=== PATIENT | female | born 1995 | race Caucasian/White ===

== ENCOUNTER 2023-08-31 11:20 | Outpatient (REF) | payer BC, SELFPAY | END 2023-08-31 11:21 | disposition home or self-care (01) | LOC: LAB 11:20 | PROVIDERS: PCP Internal Medicine; Visit Provider Obstetrics & Gynecology | DX: N90.7 Vulvar cyst (principal) | CPT/HCPCS: 88305 ==

== ENCOUNTER 2023-09-02 11:32 | Day surgery (SDC) | payer BC, SELFPAY ==
[2023-09-02 11:50] VITALS: BP 151/85; PULSE 85; TEMP 36.2; O2SAT 97; BMI 38.7
[2023-09-02 12:10] LABS: HCG Quantitative <1 mIU/mL
[2023-09-02] MEDS: LACTATED RINGER'S SOLUTION 1,000 ML 50 ML IV (12:12)
[2023-09-02 13:13] LABS: Basophils Percent Auto 0.2 % (0.2-2.0); Eosinophils Absolute Auto 0.1 10^3/uL (0.0-0.7); Hematocrit 43.2 % (36.0-48.0); Hemoglobin 14.2 g/dL (12.0-16.0); Immature Granulocytes Abs Auto 0.05 10^3/uL (0.00-0.03); Immature Granulocytes Pct Auto 0.5 % (0.0-0.5); Lymphocytes Absolute Auto 2.3 10^3/uL (1.2-3.8); Lymphocytes Percent Auto 24.1 % (20.5-60.0); Mean Corpuscular HGB Conc 32.9 g/dL (29.9-35.2); Mean Corpuscular Hemoglobin 30.7 pg (26.7-34.0); Mean Corpuscular Volume 93.3 fL (81.0-99.0); Mean Platelet Volume 10.2 fL (9.5-13.5); Monocytes Absolute Auto 0.4 10^3/uL (0.3-0.8); Monocytes Percent Auto 4.5 % (1.7-12.0); Neutrophils Absolute Auto 6.5 10^3/uL (1.4-6.5); Neutrophils Percent Auto 69.7 % (43.0-75.0); Platelet Count 334 10^3/uL (150-450); Red Blood Count 4.63 10^6/uL (4.20-5.40); Red Cell Distribution Width 12.1 % (11.0-15.0); White Blood Count 9.4 10^3/uL (4.0-11.0)
[2023-09-02] MEDS: BACITRACIN OINTMENT 28.4 GM TUBE 1 APPLIC TOPICAL (13:16)
[2023-09-02 13:22] VITALS: BP 105/72; PULSE 84; O2SAT 96
[2023-09-02 13:40] VITALS: BP 143/90; PULSE 64; O2SAT 99
[2023-09-02] MEDS: DIPHENHYDRAMINE HCL 50 MG/ML (1ML) VIAL 12.5 MG IV (13:48)
[2023-09-02 14:03] VITALS: BP 141/82; PULSE 65; O2SAT 100
[2023-09-02] MEDS: HYDROCODONE/ACET 5-325 MG TABLET 1 TAB PO (14:03)
--- NOTE | 2023-09-02 14:12 | PC.NURSE ---
PERIPAD NOTED TO HAVE SCANT AMOUNT BLOODY DRAINAGE; C/O OVERALL ITCHING, ESPECIALLY EYES; NO ORDERS RECEIVED AT THIS TIME; COOL CLOTH TO EYES
--- NOTE | 2023-09-02 14:15 | PC.NURSE ---
No increase of drainage on peripad from initial assessment; continues to c/o itching; no hives or rash noted; order received from anesthesia
--- NOTE | 2023-09-02 14:18 | PC.NURSE ---
Medicated with Benadryl IV as ordered
--- NOTE | 2023-09-02 14:22 | PC.NURSE ---
Medicated with oral medication as ordered for pain; no c/o itching; up to bathroom and voids clear yellow without difficulty; peripad changed for small amount bloody drainage.
[2023-09-02 14:33] VITALS: BP 112/70; PULSE 59; O2SAT 98
--- NOTE | 2023-09-18 14:14 | PM.ONB ---
Brief Operative Note Date of procedure: 09/18/23 Pre-op diagnosis general: vaginal hematoma s/p removal of vulvar fibroid in the office Post-op diagnosis: same as pre-op Procedure: NAME OF PROCEDURE: [evacuation of vulvar hematoma s/p removal of vulvar fibroid in the office] PROCEDURE: The patient was taken back to the Operating Room where she was prepped and draped in normal sterile fashion after being placed under general anesthesia without difficulty. She was also placed in the dorsal lithotomy position. The vulvar hematoma was identified on the pts left side, suture from approximation of vulvar tissue in office was removed, the wound was approximated 4cm in size. the hematoma was cleared and hemostasis of the bed of the prior vulvar fibroid was coagulated using a bovie, copious irrigation was performed, the vulva was approximated using 4-0 vicryl in an interrupted fashion. all instruments were removed, lap, sponge and needle counts correct times 2, Anesthesia: MAC Surgeon: Jacobo Olmstead Estimated blood loss (mL): 10 Pathology: none sent Condition: stable Disposition: PACU Urinary Catheter Management Urinary Catheter Management Urethral: Cath placed during this visit: no
== END 2023-09-02 14:48 | disposition home or self-care (01) ==
PROVIDERS: PCP Internal Medicine; Visit Provider Obstetrics & Gynecology
PROC: (CPT 400; principal; 2023-09-02 12:00)
DX: N99.840 Postprocedural hematoma of a genitourinary system organ or structure following a genitourinary system procedure (principal)
CPT/HCPCS: 56405; 36415; 84702; 85025; J1094; J2704

== ENCOUNTER 2024-04-18 14:18 | Outpatient (OUT) | payer BC, SELFPAY ==
[2024-04-18 14:36] LABS: Bilirubin Urine NEGATIVE (NEGATIVE); Blood Urine MODERATE (NEGATIVE); Clarity Urine CLEAR (CLEAR); Color Urine LT. YELLOW (YELLOW); Glucose Urine UA NEGATIVE (NEGATIVE); Ketones Urine NEGATIVE (NEGATIVE); Leukocyte Esterase Urine NEGATIVE (NEGATIVE); Nitrite Urine NEGATIVE (NEGATIVE); Protein Urine NEGATIVE (NEG/TRACE); Urobilinogen Urine 0.2 EU/dL (0.2-1.0); pH Urine 6.5 (5.0-9.0)
[2024-04-18 14:37] LABS: Basophils Percent Auto 0.5 % (0.2-2.0); Eosinophils Absolute Auto 0.3 10^3/uL (0.0-0.7); Eosinophils Percent Auto 4.5 % (0.9-7.0); Hematocrit 44.2 % (36.0-48.0); Hemoglobin 14.8 g/dL (12.0-16.0); Immature Granulocytes Abs Auto 0.02 10^3/uL (0.00-0.03); Immature Granulocytes Pct Auto 0.3 % (0.0-0.5); Lymphocytes Absolute Auto 2.6 10^3/uL (1.2-3.8); Mean Corpuscular HGB Conc 33.5 g/dL (29.9-35.2); Mean Corpuscular Hemoglobin 30.3 pg (26.7-34.0); Mean Corpuscular Volume 90.6 fL (81.0-99.0); Mean Platelet Volume 9.2 fL (9.5-13.5); Monocytes Absolute Auto 0.4 10^3/uL (0.3-0.8); Monocytes Percent Auto 5.7 % (1.7-12.0); Platelet Count 415 10^3/uL (150-450); Red Blood Count 4.88 10^6/uL (4.20-5.40); Red Cell Distribution Width 11.7 % (11.0-15.0); White Blood Count 7.3 10^3/uL (4.0-11.0)
[2024-04-18 15:11] LABS: Bacteria Urine TRACE #/HPF (NONE SEEN); Cast Seen? NONE SEEN #/LPF (NONE SEEN); Crystals Seen? None Seen #/HPF (None Seen); Mucus Urine NONE SEEN (NONE SEEN); RBC Urine NONE SEEN #/HPF (0-2); Squamous Epithelial Cell Urine FEW #/LPF (NONE/RARE); WBC Urine NONE SEEN #/HPF (NONE SEEN)
== END 2024-04-18 14:19 | disposition home or self-care (01) ==
LOC: LAB 14:19
PROVIDERS: PCP Internal Medicine; Visit Provider Internal Medicine
DX: R31.0 Gross hematuria (principal); R11.2 Nausea with vomiting, unspecified
CPT/HCPCS: 36415; 81001; 85025; 87086

== ENCOUNTER 2024-07-26 15:52 | Outpatient (OUT) | payer BC, SELFPAY ==
--- NOTE | 2024-07-26 15:57 | XR_ITS ---
The [address] [address] Patient Name: CARMEN CARRIZALES MRN: [id number] date: 1995 Sex: F Assigned Patient Location: RAD Current Patient Location: [facility] Accession/Order Number: [id number] Exam Date: 07/26/2024 16:50 Report Date: 07/26/2024 16:51 At the request of: JEREMY RUIZ DO Procedure: XR abdomen 1V KUB: CLINICAL INFORMATION: IUD placement. COMPARISON: None FINDINGS: IUD is in place. Phleboliths are seen within the pelvis. No bowel obstruction or free air. XR/XR abdomen 1V IMPRESSION: No acute process. Impression dictated by: Josh Rodriguez Jr., ElenaOMya07/26/2024 4:51 PM Dictation Location: [place] [address] Electronically authenticated by: [id number] Y Date: 07/26/2024 16:51
== END 2024-07-26 15:53 | disposition home or self-care (01) ==
LOC: RAD 15:53
PROVIDERS: PCP Internal Medicine; Visit Provider Obstetrics & Gynecology
DX: R10.2 Pelvic and perineal pain (principal); Z97.5 Presence of (intrauterine) contraceptive device
CPT/HCPCS: 74018

== ENCOUNTER 2024-08-08 11:01 | Outpatient (OUT) | payer BC, SELFPAY ==
--- OUTSIDE RECORDS SUMMARY | 2024-08-08 11:08 | XMS_ITS | CCD ---
Author Organization [facility] Care Team Providers Care Glaze Grinder Name Role Phone PHYSICIAN, DEFAULT Unavailable Unavailable PHYSICIAN, DEFAULT Unavailable Unavailable Krishna Hernandez Unavailable DAVID, DR STRONG Primary Care Unavailable MARIBELL ., MANUELITO Admitting Unavailable PEPE ., AALIYAH STAUFFER Consulting Unavailkemi REYNA ., MANUELITO Attending Unavailable ROGELIO FUCHS Consulting Unavailable MARIBELL ., MANUELITO Consulting Unavailable SONIDO ., DR BISHOP Attending Unavailkemi e SONIDO ., DR BISHOP Consulting Unavailkemi e SONIDO ., DR BISHOP Admitting Unavailkemi HERNANDEZ, DR STRONG Primary Care Unavailable MARKUS, DR SUSAN Hudson Admitting Unavailable MARKUS, DR SUSAN Hudson Attending Unavailable MARKUS, DR SUSAN Hudson Consulting Unavailable Susan Aparicio Unavailable MD Susan Aparicio Primary Care Provider Jeremy Olmstead Attending Provider Jeremy Olmstead Admitting Unavailable Jeremy Olmstead Attending Unavailable Susan Aparicio Primary Care Unavailable KRISHNA HERNANDEZ Primary Care Unavailable KRISHNA HERNANDEZ Primary Care Unavailable ROLO ESTES Admitting Unavailable PRATEEK PONCE Attending Unavailable KRISHNA HERNANDEZ Primary Care Unavailable ROSA KNOWLES Attending Unavailable JEREMY OLMSTEAD Attending Unavailable JEREMY OLMSTEAD Referring Unavailable JEREMY OLMSTEAD Attending Unavailable JEREMY OLMSTEAD Attending Unavailable JEREMY OLMSTEAD Attending Unavailable JEREMY OLMSTEAD Attending Unavailable Allergies Allergy Classification Reported Allergen(s) Allergy Type Date of Onset Reaction(s) Facility (1 source) Doxycycline; Translations: [DOXYCYCLINE] Drug Allergy 04-26-2024 [facility] Medications Current Medications Medication Drug Class(es) Dates Sig (Normalized) Sig (Original) [id number] 200 actuat albuterol 0.09 mg/actuat metered dose inhaler (6 sources) beta2-Adrenergic Agonist take 1 puff(s) by inhalation every four hours as needed Albuterol Sulfate HFA 108 (90 Base) MCG/ACT 1 puff as needed Inhalation every 4 hrs Active take 1 puff(s) by in halation every four hours as needed Albuterol Sulfate HFA 108 (90 Base) MCG/ACT 1 puff as needed Inhalation every 4 hrs Active amoxicillin 875 mg / clavulanate 125 mg oral tablet (4 sources) Penicillin-class Antibacterial Start: 08-19-2022 take 1 tablet by mouth every twelve hours Amoxicillin-Pot Clavulanate 875-125 MG 1 tablet Orally every 12 hrs for 7 days Aug, Active azithromycin 250 mg oral tablet (7 sources) Macrolide Antimicrobial Start: 07-28-2022 Azithromycin 250 MG as directed Orally daily for 5 days Jan, Active escitalopram 10 mg oral tablet (6 sources) Serotonin Reuptake Inhibitor Start: 07-16-2022 take 1 tablet by mouth every twenty-four hours Escitalopram Oxalate 10 MG 1 tablet Orally Once a day for 30 days Jul, Active Levonorgestrel (6 sources) Progestin, Progestin-containing Intrauterine Device Mirena Active nitrofurantoin, macrocrystals 25 mg / nitrofurantoin, monohydrate 75 mg oral capsule (6 sources) Nitrofuran Antibacterial take 1 capsule by mouth every twelve hours [place] (No Known Home Meds) (2 sources) Start: 07-08-2024 [place] (No Known Home Meds) Active July 08, 2024 12:00am Start: 04-30-2020 [place] (No Kn own Home Meds) Active April 30, 2020 1:00am omeprazole 40 mg delayed release oral capsule (3 sources) Proton Pump Inhibitor Start: 08-26-2022 Omeprazole 40 MG 1 capsule Orally Once a day, taken on empty stomach, followed in 30 minutes by bkfst for 30 days Aug, Active phenazopyridine hydrochloride 200 mg oral tablet (6 sources) take 1 tablet by mouth every eight hours Completed/Discontinued Medications Medication Drug Class(es) Dates Sig (Normalized) Sig (Original) amoxicillin 875 mg oral tablet (8 sources) Penicillin-class Antibacterial Start: 06-23-2024 End: 07-08-2024 take 1 tablet by mouth twice daily Amoxicillin 875 mg tablet Discontinued 875 MG PO Twice daily 27 02June 23, 2024 12:00July 08, 2024 2:41pm Start: 06-02-2022 take 1 capsule by mo [facility] every eight hours Amoxicillin 500 MG 1 capsule Orally every 8 hrs for 7 days May, Active cefdinir 300 mg oral capsule (2 sources) Cephalosporin Antibacterial Start: 04-14-2024 End: 07-08-2024 take 1 capsule by mouth twice daily Cefdinir 300 mg capsule Discontinued 300 MG PO Twice daily 02 12April 14, 2024 12:00am July 08, 2024 2:36pm citalopram 20 mg oral tablet (3 sources) Serotonin Reuptake Inhibitor Start: 05-02-2020 End: 04-14-2024 take 1 tablet by mouth once daily in the morning Citalopram 20 mg Tablet Discontinued 20 MG PO Every morning May 02, 2020 12:00am April 14, 2024 9:54am melatonin 5 mg oral tablet (3 sources) Start: 05-02-2020 End: 04-14-2024 take 1 tablet by mouth once daily at bedtime as needed Melatonin 5 mg Tablet Discontinued 5 MG PO Daily at bedtime as needed for Insomnia May 02, 2020 12:00am April 14, 2024 9:54am nicotine 2 mg chewing gum (3 sources) Cholinergic Nicotinic Agonist Start: 05-02-2020 End: 04-14-2024 Nicotine (Polacrilex) 2 mg Gum Discontinued 2 MG BUCCAL Q2H as needed for Nicotine Cravings May 02, 2020 12:00April 14, 2024 9:54am ondansetron 4 mg disintegrating oral tablet (2 sources) Serotonin-3 Receptor Antagonist Start: 04-14-2024 End: 07-08-2024 take 1 tablet by mouth every eight hours as needed for nausea and vomiting Ondansetron 4 mg tablet,disintegra ting Discontinued 4 MG PO Every 8 hours as needed for nausea and vomiting 02 10April 14, 2024 12:00am July 08, 2024 2:36pm Problems Active Problems Problem Classification Problem Date Documented Da te Episodic/Chronic Abdominal pain (20 sources) Pelvic and perineal pain; Translations: [Pelvic and perineal pain] Onset: 4 Episodic Acute bronchitis (8 sources) Acute bronchitis due to other specified organisms; Translations: [Acute bronchitis] Onset: 8 Episodic Administrative/social admission (3 sources) Encounter for blood-alcohol and blood-drug test; Translations: [Encounter for blood-alcohol and blood-drug test] Episodic Allergic reactions (7 sources) Contact dermatitis; Translations: [Unspecified contact dermatitis, unspecified cause] Episodic Anxiety disorders (7 sources) Generalized anxiety disorder; Translations: [Generalized anxiety disorder] Chronic Asthma (3 sources) Uncomplicated asthma; Translations: [Unspecified asthma, uncomplicated] Chronic Chronic obstructive pulmonary disease and bronchiectasis (7 sources) Bronchitis; Translations: [Bronchitis, not specified as acute or chronic] Episodic Contraceptive and procreative management (4 sources) Presence of (intrauterine) contraceptive device; Translations: [Surveillance of intrauterine device contraception] Onset: 2 Episodic Esophageal disorders (6 sources) Gastroesophageal reflux disease without esophagitis; Translations: [Gastro-esophageal reflux disease without esophagitis] Chronic Esophageal disorders (3 sources) Esophageal disorders; Translations: [Gastro-esophageal reflux disease with esophagitis, without bleeding] Onset: 8 Genitourinary symptoms and ill-defined conditions (12 sources) Genitourinary symptoms; Translations: [Unspecified symptoms and signs involving the genitourinary system] 04-14-2024 Episodic Headache; including migraine (9 sources) Refractory migraine with aura; Translations: [Migraine with aura, intractable, with status migrainosus] Onset: 4 04-22-2023 Chronic Comment on above: Problem List clean-u p per request of Phys. EHR Cmte Headache; including migraine (7 sources) Frequent headache; Translations: [Frequent headaches] Episodic Hemorrhage during ; abruptio placenta; placenta previa (3 sources) Antepartum hemorrhage; Translations: [Antepartum hemorrhage, unspecified, third trimester] Episodic Hypertension complicating ; childbirth and the puerperium (3 sources) Maternal hypertension; Translations: [Unspecified maternal hypertension, third trimester] Chronic Hypertension complicating ; childbirth and the puerperium (6 sources) -induced hypertension; Translations: [Gestational [-induced] hypertension without significant proteinuria, third trimester] Resolved: 8 Episodic Lymphadenitis (2 sources) Localized enlarged lymph nodes; Translations: [Enlargement of lymph nodes] Onset: 5 07-08-2024 Episodic Menstrual disorders (3 sources) Amenorrhea; Translations: [Amenorrhea, unspecified] Onset: 4 Chronic Mood disorders (10 sources) Chronic depression; Translations: [Major depressive disorder, single episode, unspecified] 04-22-2023 Chronic Comment on above: Problem List clean-u p per request of Phys. EHR Cmte Nausea and vomiting (4 sources) Nausea and vomiting; Translations: [Nausea with vomiting, unspecified] 04-14-2024 Episodic Nonspecific chest pain (4 sources) Chest pain; Translations: [Other chest pain] Onset: 8 Episodic Other circulatory disease (3 sources) Elevated blood-pressure reading without diagnosis of hypertension; Translations: [Elevated blood-pressure reading, without diagnosis of hypertension] Episodic Other complications of (6 sources) High risk ; Translations: [Supervision of high risk , unspecified, second trimester] Episodic Other complications of (3 sources) Supervision of high risk with poor obstetric history; Translations: [Supervision of with other poor reproductive or obstetric history, second trimester] Episodic Other complications of (3 sources) Supervision of high risk ; Translations: [Supervision of other high risk pregnancies, third trimester] Episodic Other complications of (3 sources) Reduced movement; Translations: [Decreased movements, unspecified trimester, not applicable or unspecified] Episodic Other gastrointestinal disorders (1 source) Dysphagia, unspecified; Translations: [Dysphagia, unspecified] 07-08-2024 Episodic Other injuries and conditions due to external causes (4 sources) Other injury of unspecified body region, initial encounter; Translations: [Bruising] Episodic Other injuries and conditions due to external causes (3 sources) Traumatic AND/OR non-traumatic injury; Translations: [Other injury of unspecified body region, initial encounter] Episodic Other liver diseases (2 sources) Enzyme level - finding; Translations: [Transaminasemia] 07-08-2024 Episodic Other liver diseases (1 source) Abnormal levels of other serum enzymes; Translations: [Other nonspecific abnormal serum enzyme levels] 07-08-2024 Episodic Other lower respiratory disease (4 sources) Wheezing; Translations: [Wheezing] Episodic Other non-traumatic joint disorders (1 source) Ankle pain Onset: 4 Episodic Other nutritional; endocrine; and metabolic disorders (6 sources) Body mass index 30+ - obesity; Translations: [Obesity, unspecified] Chronic Other nutritional; endocrine; and metabolic disorders (1 source) Obesity, unspecified Chronic Other nutritional; endocrine; and metabolic disorders (3 sources) Obese class II; Translations: [Body mass index (BMI) 35.0-35.9, adult] Chronic Other nutritional; endocrine; and metabolic disorders (3 sources) Simple obesity ; Translations: [Other obesity due to excess calories] Onset: 7 Chronic Other nutritional; endocrine; and metabolic disorders (3 sources) Obesity; Translations: [Obesity, unspecified] Chronic Other and delivery including normal (12 sources) test positive; Translations: [Encounter for test, result positive] Onset: 4 Resolved: 6 Episodic Other screening for suspected conditions (not mental disorders or infectious disease) (7 sources) Encounter for screening for malignant neoplasm of cervix; Translations: [Urine test negative] Onset: 3 Episodic Other upper respiratory disease (1 source) Pain in throat Onset: 5 Episodic Other upper respiratory infections (20 sources) Acute maxillary sinusitis, unspecified; Translations: [Acute upper respiratory infection] Onset: 7 Episodic Previous (3 sources) Supervision of high risk with history of previous section; Translations: [Maternal care for unspecified type scar from previous delivery] Episodic Screening and history of mental health and substance abuse codes (1 source) Personal history of other mental and behavioral disorders Episodic Spondylosis; intervertebral disc disorders; other back problems (7 sources) Sciatica; Translations: [Lumbago with sciatica, left side] Episodic Sprains and strains (1 source) Sprain of unspecified ligament of left ankle, initial encounter; Translations: [Sprain of unspecified ligament of left ankle, initial encounter] Onset: 4 Episodic Substance-related disorders (11 sources) Nicotine dependence, cigarettes, uncomplicated; Translations: [Nicotine dependence] Onset: 7 Chronic Suicide and intentional self-inflicted injury (3 sources) Suicidal thoughts; Translations: [Suicidal ideations] 04-22-2023 Episodic Comment on above: Problem List clean-u p per request of Phys. EHR Cmte Unclassified (3 sources) CONTACT W/AND (SUSP) EXPOS COVID-19; Translations: [CONTACT W/AND (SUSP) EXPOS COVID-19] Onset: 2 Unclassified (1 source) Left Ankle Pain, Injury Onset: 4 Urinary tract infections (4 sources) Cystitis, unspecified without hematuria; Translations: [Urinary tract infectious disease] Onset: 2 Episodic Viral infection (3 sources) COVID-19; Translations: [Severe acute respiratory syndrome coronavirus 2 (SARS-CoV-2) detected] 04-22-2023 Episodic Comment on above: Problem List clean-u p per request of Phys. EHR Cmte Viral infection (7 sources) Disease caused by 2019-nCoV; Translations: [COVID-19] Past or Other Problems Problem Classification Problem Date Documented Date Episodic/Chronic Immunizations and screening for infectious disease (3 sources) Sexually transmitted infectious disease; Translations: [Encounter for screening for infections with a predominantly sexual mode of transmission] Resolved: 08-06-2016 Episodic Inflammation; infection of eye (except that caused by tuberculosis or sexually transmitteddisease) (6 sources) Acute conjunctivitis; Translations: [Unspecified acute conjunctivitis] Onset: 03-06-2017 Episodic Miscellaneous mental health disorders (3 sources) depression; Translations: [ depression] Resolved: 05-06-2016 Episodic Other circulatory disease (3 sources) Cardiovascular symptoms; Translations: [Other specified symptoms and signs involving the circulatory and respiratory systems] Onset: 10-19-2017 Episodic Other complications of ; puerperium affecting management of mother (3 sources) delivery - delivered; Translations: [Encounter for delivery without indication] Resolved: 12-31-2016 Episodic Other complications of (3 sources) Supervision of with insufficient care, third trimester; Translations: [Suprvsn of preg w insufficient antenat care, third trimester] Resolved: 12-25-2016 Episodic Other nervous system disorders (3 sources) Dysarthria; Translations: [Dysarthria and anarthria] Onset: 01-12-2018 Episodic Residual codes; unclassified (3 sources) Tobacco user; Translations: [Tobacco use] Onset: 02-17-2017 Episodic Residual codes; unclassified (3 sources) History of uterine scar from previous surgery; Translations: [History of uterine scar from previous surgery] Resolved: 12-31-2016 Episodic Unclassified (1 source) CONTACT W/AND (SUSP) EXPOS COVID-19; Translations: [CONTACT W/AND (SUSP) EXPOS COVID-19] Onset: 09-25-2021 Results Test Name Value Interpretation Reference Range Facility US PELVIS TRANSVAGINALon US PELVIS TRANSVAGINAL EXAM: US PELVIS TRANSVAGINAL HISTORY: Unable to see IUD strings for removal. COMPARISON: None available. TECHNIQUE: Two-dimensional transvaginal grayscale ultrasound imaging of the pelvis was performed. Color flow Doppler imaging of the ovaries were also performed. FINDINGS: UTERUS 11.0 x 2.8 x 4.5 cm The uterus is anteverted in position and demonstrates a mildly heterogeneous echotexture. Multiple nabothian cysts are visualized within the cervix. ENDOMETRIUM 1.4 cm The endometrium demonstrates a normal, homogeneous echotexture. The IUD is limited in visualization due to uterine position; however, appears appropriate in position. RIGHT OVARY 3.8 x 2.3 x 3.7 cm The right ovary demonstrates a normal echotexture. There is normal color Doppler flow. LEFT OVARY The left ovary is not visualized due to overlying bowel gas. No fluid is present within the cul-de-sac. IMPRESSION: 1. Mildly heterogeneous uterus. 2. IUD appears appropriate in position within the endometrium. 3. Normal color Doppler flow within the right ovary, the left ovary was not visualized. Electronically Signed:Electronicall y signed by NOMI MENDOZA II, MD, PHD at 28-Jul-2024 08:45:45 AM [facility] Normal Not Available Comment on above: Order Comment: US PE LVIS TRANSVAGINAL No LMP recorded. (Menstrual status: No Periods). 223 lb 1.9 oz CBC AND AUTO DIFFon 06-30-19 25 Erythrocyte distribution width (RBC) [Ratio] 12.4 % Normal 11.5-15.0 [facility] Comment on above: Performed By: #### C SUJEY, BMP #### [facility] ([id number]) [address] [place] [address], [place] [address] Hematocrit (Bld) [Volume fraction] 43.3 % Normal 35-47 [facility] Comment on above: Performed By: #### C BCA, BMP #### [facility] ([id number]) [address] [place] [address] 90480 Hemoglobin (Bld) [Mass/Vol] 14.5 g/dL Normal 11.7-15.5 [facility] Comment on above: Performed By: #### C BCA, BMP #### [facility] ([id number]) [address] [place] [address]37 Lymphocytes (Bld) [#/Vol] 4.7 10*3/uL High 1.0-3.5 [facility] Comment on above: Performed By: #### C BCA, BMP #### [facility] ([id number]) [address] [place] [address] 94156 Lymphocytes/100 WBC (Bld) 33.0 % Normal [facility] Comment on above: Performed By: #### C BCA, BMP #### [facility] ([id number]) [address] [place] [address] 30309 MCH (RBC) [Entitic mass] 29.8 pg Normal 27-34 [facility] Comment on above: Performed By: #### C BCA, BMP #### [facility] ([id number]) [address] [place] [address] 28923 MCHC (RBC) [Mass/Vol] 33.5 g/dL Normal 32-36 [facility] Comment on above: Performed By: #### C BCA, BMP #### [facility] ([id number]) [address] [place] [address] 02351 MCV (RBC) [Entitic vol] 89 fL Normal 80-100 P [facility] Comment on above: Performed By: #### C BCA, BMP #### [facility] ([id number]) [address] [place] [address] 54589 Monocytes (Bld) [#/Vol] 0.7 10*3/uL Normal 0-0.9 [facility] Comment on above: Performed By: #### C SUJEY, BMP #### [facility] ([id number]) [address] [place] [address] 81277 Monocytes/100 WBC (Bld) 5.0 % Normal P [facility] Comment on above: Performed By: #### C SUJEY, BMP #### [facility] ([id number]) [address] [place] [address] 75657 Neutrophils (Bld) [#/Vol] 8.8 10*3/uL High 1.5-6.6 [facility] Comment on above: Performed By: #### C SUJEY, BMP #### [facility] ([id number]) [address] [place] [address] 86952 Platelet mean volume (Bld) [Entitic vol] 7.8 fL Normal 7-12 [facility] Comment on above: Performed By: #### C SUJEY, BMP #### [facility] ([id number]) [address] [place] [address] 10847 Platelets (Bld) [#/Vol] 374 10*3/uL Normal 150-450 [facility] Comment on above: Performed By: #### C SUJEY, BMP #### [facility] ([id number]) [address] [place] [address] 25509 RBC COUNT 4.86 X10E12/L Normal 3.80-5.20 [facility] Comment on above: Performed By: #### C SUJEY, BMP #### [facility] ([id number]) [address] [place] [address] 71620 RBC morphology finding Nom (Bld) NORMAL Normal [facility] Comment on above: Performed By: #### Davis RM, BMP #### [facility] ([id number]) [address] [place] [address] 11237 SEG NEUTROPHIL 62.0 % Normal [facility] Comment on above: Performed By: #### C BCA, BMP #### [facility] ([id number]) [address] [place] [address] 35149 WBC (Bld) [#/Vol] 14.2 10*3/uL High 4.0-11.0 [facility] Comment on above: Performed By: #### C SUJEY, BMP #### [facility] ([id number]) [address] [place] [address] 23333 COMPREHENSIVE METABOLIC PANE Fernando 06-30-2024 Albumin [Mass/Vol] 4.0 g/dL Normal 3.2-5.3 [facility] Comment on above: Performed By: #### C SUJEY, BMP #### [facility] ([id number]) [address] [place] [address] 42031 ALP [Catalytic activity/Vol] 55 U/L Normal 39-130 [facility] Comment on above: Performed By: #### C BCA, BMP #### [facility] ([id number]) [address] [place] [address] 51780 ALT [Catalytic activity/Vol] 132 U/L High 0-31 [facility] Comment on above: Performed By: #### C BCA, BMP #### [facility] ([id number]) [address] [place] [address] 87488 Anion gap [Moles/Vol] 6 mmol/L Normal 5-15 [facility] Comment on above: Performed By: #### C BCA, BMP #### [facility] ([id number]) [address] [place] [address] 24701 AST [Catalytic activity/Vol] 33 U/L Normal 0-41 [facility] Comment on above: Performed By: #### C BCA, BMP #### [facility] ([id number]) [address] [place] [address] 46396 Bilirubin [Mass/Vol] 0.8 mg/dL Normal 0.3-1.2 [facility] Comment on above: Performed By: #### C BCA, BMP #### [facility] ([id number]) [address] [place] [address] 11816 Calcium [Mass/Vol] 8.4 mg/dL Low 8.5-10.5 [facility] Comment on above: Performed By: #### C BCA, BMP #### [facility] ([id number]) [address] [place] [address] 92778 Chloride [Moles/Vol] 104 mmol/L Normal 98-109 [facility] Comment on above: Performed By: #### C BCA, BMP #### [facility] ([id number]) [address] [place] [address] 54836 CO2 [Moles/Vol] 23 mmol/L Normal 22-32 [facility] Comment on above: Performed By: #### C BCA, BMP #### [facility] ([id number]) [address] [place] [address] 11647 Creatinine [Mass/Vol] 0.69 mg/dL Normal 0.40-1.00 [facility] Comment on above: Result Comment: METH OD TRACEABLE TO IDMS STANDARD Performed By: #### C BCA, BMP #### [facility] ([id number]) [address] [place] [address] 82217 eGFR (CKD-EPI) NON-RACE DEPENDENT >90 Normal >59 [facility] Comment on above: Result Comment: Reported eGFR is based on the CKD-EPI 2020 equation that does not use a race coefficient. Performed By: #### C BCA, BMP #### [facility] ([id number]) [address] [place] [address], [place] [address] Glucose [Mass/Vol] 92 mg/dL Normal 65-99 [facility] Comment on above: Performed By: #### C BCA, BMP #### [facility] ([id number]) [address] [place] [address] 87763 Potassium [Moles/Vol] 4.0 mmol/L Normal 3.5-5.0 [facility] Comment on above: Performed By: #### C BCA, BMP #### [facility] ([id number]) [address] [place] [address] 12403 Protein [Mass/Vol] 6.8 g/dL Normal 6.0-8.0 [facility] Comment on above: Performed By: #### C BCA, BMP #### [facility] ([id number]) [address] [place] [address] 66806 Sodium [Moles/Vol] 133 mmol/L Low 134-146 [facility] Comment on above: Performed By: #### C BCA, BMP #### [facility] ([id number]) [address] [place] [address] 28863 Urea nitrogen [Mass/Vol] 15 mg/dL Normal 5-23 [facility] Comment on above: Performed By: #### C BCA, BMP #### [facility] ([id number]) [address] [place] [address] NECK SOFT TISSUE W CONTon 06-30-2024 CT NECK SOFT TISSUE W CONT CT NECK SOFT TISSUE W CONT EXAM: CT NECK WITH CONTRAST CLINICAL INFORMATION: Soft tissue infection suspected, neck, xray done. TECHNIQUE: CT neck was performed utilizing 5 mm axial reconstructions following the uneventful administration of nonionic intravenous contrast. Coronal and sagittal reformatted images were obtained and reviewed. Automated exposure control was utilized. COMPARISON: 06/27/2024 FINDINGS: There are BB markers overlying the submandibular spaces, corresponding to the clinical area of concern. There are normal submandibular glands. This typically, there has been interval resolution of previously seen mild asymmetric enhancement and inflammatory changes of left submandibular sialoadenitis. No submandibular space soft tissue abnormalities are identified on the current examination. Again seen is prominent soft tissue at the base of tongue extending into the vallecula, suspected to represent prominent reactive lingual tonsils. The mucosal and submucosal spaces of the neck are otherwise unremarkable. There are scattered relatively symmetric nonenlarged lymph nodes on both sides of the neck. No pathologically enlarged lymph nodes are identified. The thyroid and parotid glands are unremarkable. The carotid arteries and jugular veins are unremarkable. The limited visualized lung apices are unremarkable. The limited visualized intracranial contents are unremarkable. There is a miniscule amount of nonaggressive mucosal thickening lining the maxillary sinuses. The visualized paranasal sinuses are otherwise well aerated. The mastoids are clear and well aerated. IMPRESSION: 1. No acute abnormalities in the neck. Specifically, previously seen mild inflammatory changes of left submandibular sialoadenitis have resolved in the interval. 2. There are BB markers overlying both submandibular spaces, corresponding to the clinical area of concern. No underlying soft tissue abnormalities of the submandibular space are identified. The submandibular glands are symmetric and unremarkable. 3. Stable appearance of symmetric nonaggressive prominent base of tongue soft tissue, presumed to represent reactive lingual tonsils. All CT scans at this facility use dose modulation, iterative reconstruction, and/or weight based dosing when appropriate to reduce radiation dose to as low as reasonably achievable. Finalized by Kam Barkley MD on 06/30/2024 11:48 AM Normal [facility] CBC AND AUTO DIFFon 06-28-19 25 ABSOLUTE BASOPHIL 0.0 X10E9/L Normal 0.0-0.2 [facility] Comment on above: Performed By: #### C CAMRON RM #### [facility] ([id number]) [address] [place] [address] 63933 ABSOLUTE NEUTROPHIL 9.4 X10E9/L High 1.5-6.6 [facility] Comment on above: Performed By: #### C SUJEY BMP #### [facility] ([id number]) [address] [place] [address] 14628 Basophils/100 WBC (Bld) 0.3 % Normal [facility] Comment on above: Performed By: #### C SUJEY, BMP #### [facility] ([id number]) [address] [place] [address] 67072 Eosinophils (Bld) [#/Vol] 0.0 10*3/uL Normal 0.0-0.4 [facility] Comment on above: Performed By: #### C SUJEY, BMP #### [facility] ([id number]) [address] [place] [address] 83694 Eosinophils/100 WBC (Bld) 0.0 % Normal [facility] Comment on above: Performed By: #### C SUJEY, BMP #### [facility] ([id number]) [address] [place] [address] 67614 Erythrocyte distribution width (RBC) [Ratio] 12.6 % Normal 11.5-15.0 [facility] Comment on above: Performed By: #### C SUJEY, BMP #### [facility] ([id number]) [address] [place] [address] 65026 Hematocrit (Bld) [Volume fraction] 39.6 % Normal 35-47 [facility] Comment on above: Performed By: #### C SUJEY, BMP #### [facility] ([id number]) [address] [place] [address] 54270 Hemoglobin (Bld) [Mass/Vol] 13.3 g/dL Normal 11.7-15.5 [facility] Comment on above: Performed By: #### C BCA, BMP #### [facility] ([id number]) [address] [place] [address] 80743 Lymphocytes (Bld) [#/Vol] 1.9 10*3/uL Normal 1.0-3.5 [facility] Comment on above: Performed By: #### C BCA, BMP #### [facility] ([id number]) [address] [place] [address] 07530 Lymphocytes/100 WBC (Bld) 16.4 % Normal [facility] Comment on above: Performed By: #### C SUJEY, BMP #### [facility] ([id number]) [address] [place] [address] 53386 MCH (RBC) [Entitic mass] 29.8 pg Normal 27-34 [facility] Comment on above: Performed By: #### C SUJEY, BMP #### [facility] ([id number]) [address] [place] [address] 80276 MCHC (RBC) [Mass/Vol] 33.6 g/dL Normal 32-36 [facility] Comment on above: Performed By: #### C SUJEY, BMP #### [facility] ([id number]) [address] [place] [address] 13293 MCV (RBC) [Entitic vol] 89 fL Normal 80-100 [facility] Comment on above: Performed By: #### C SUJEY, BMP #### [facility] ([id number]) [address] [place] [address] 36169 Monocytes (Bld) [#/Vol] 0.4 10*3/uL Normal 0-0.9 [facility] Comment on above: Performed By: #### C SUJEY, BMP #### [facility] ([id number]) [address] [place] [address] 05012 Monocytes/100 WBC (Bld) 3.5 % Normal [facility] Comment on above: Performed By: #### C SUJEY, BMP #### [facility] ([id number]) [address] [place] [address] 76585 Neutrophils/100 WBC (Bld) 79.8 % Normal [facility] Comment on above: Performed By: #### C SUJEY, BMP #### [facility] ([id number]) [address] [place] [address] 56821 Platelet mean volume (Bld) [Entitic vol] 8.0 fL Normal 7-12 [facility] Comment on above: Performed By: #### C SUJEY, BMP #### [facility] ([id number]) [address] [place] [address] 11328 Platelets (Bld) [#/Vol] 342 10*3/uL Normal 150-450 [facility] Comment on above: Performed By: #### C SUJEY, BMP #### [facility] ([id number]) [address] [place] [address] 65690 RBC COUNT 4.47 X10E12/L Normal 3.80-5.20 [facility] Comment on above: Performed By: #### C SUJEY, BMP #### [facility] ([id number]) [address] [place] [address] 04677 WBC (Bld) [#/Vol] 11.8 10*3/uL High 4.0-11.0 [facility] Comment on above: Performed By: #### C SUJEY, BMP #### [facility] ([id number]) [address] [place] [address] 67594 COMPREHENSIVE METABOLIC PANE Fernando 06-28-2024 Albumin [Mass/Vol] 3.9 g/dL Normal 3.2-5.3 [facility] Comment on above: Performed By: #### C SUJEY, BMP #### [facility] ([id number]) [address] [place] [address] 22506 ALP [Catalytic activity/Vol] 59 U/L Normal 39-130 [facility] Comment on above: Performed By: #### C SUJEY, BMP #### [facility] ([id number]) [address] [place] [address] 03774 ALT [Catalytic activity/Vol] 58 U/L High 0-31 [facility] Comment on above: Performed By: #### C BCA, BMP #### [facility] ([id number]) [address] [place] [address] 46402 Anion gap [Moles/Vol] 10 mmol/L Normal 5-15 [facility] Comment on above: Performed By: #### C BCA, BMP #### [facility] ([id number]) [address] [place] [address] 52837 AST [Catalytic activity/Vol] 32 U/L Normal 0-41 [facility] Comment on above: Performed By: #### C SUJEY, BMP #### [facility] ([id number]) [address] [place] [address] 09935 Bilirubin [Mass/Vol] 0.7 mg/dL Normal 0.3-1.2 [facility] Comment on above: Performed By: #### C BCA, BMP #### [facility] ([id number]) [address] [place] [address] 36035 Calcium [Mass/Vol] 8.9 mg/dL Normal 8.5-10.5 [facility] Comment on above: Performed By: #### C BCA, BMP #### [facility] ([id number]) [address] [place] [address] 78813 Chloride [Moles/Vol] 103 mmol/L Normal 98-109 [facility] Comment on above: Performed By: #### C BCA, BMP #### [facility] ([id number]) [address] [place] [address] 76680 CO2 [Moles/Vol] 22 mmol/L Normal 22-32 [facility] Comment on above: Performed By: #### C BCA, BMP #### [facility] ([id number]) [address] [place] [address] [place] [address] Creatinine [Mass/Vol] 0.59 mg/dL Normal 0.40-1.00 [facility] Comment on above: Result Comment: METH OD TRACEABLE TO IDMS STANDARD Performed By: #### C SUJEY, BMP #### [facility] ([id number]) [address] [place] [address] 28887 eGFR (CKD-EPI) NON-RACE DEPENDENT >90 Normal >59 [facility] Comment on above: Result Comment: Reported eGFR is based on the CKD-EPI 2020 equation that does not use a race coefficient. Performed By: #### C SUJEY, BMP #### [facility] ([id number]) [address] [place] [address] 98501 Glucose [Mass/Vol] 132 mg/dL High 65-99 [facility] Comment on above: Performed By: #### C SUJEY, BMP #### [facility] ([id number]) [address] [place] [address] 75714 Potassium [Moles/Vol] 4.0 mmol/L Normal 3.5-5.0 [facility] Comment on above: Performed By: #### C SUJEY, BMP #### [facility] ([id number]) [address] [place] [address] 47338 Protein [Mass/Vol] 6.7 g/dL Normal 6.0-8.0 [facility] Comment on above: Performed By: #### C BCA, BMP #### [facility] ([id number]) [address] [place] [address] 79990 Sodium [Moles/Vol] 135 mmol/L Normal 134-146 [facility] Comment on above: Performed By: #### C BCA, BMP #### [facility] ([id number]) [address] [place] [address] 10368 Urea nitrogen [Mass/Vol] 15 mg/dL Normal 5-23 [facility] Comment on above: Performed By: #### C BCA, BMP #### [facility] ([id number]) [address] [place] [address] 54638 MAGNESIUMon 06-28-2024 Magnesium [Mass/Vol] 2.3 mg/dL Normal 1.8-2.6 [facility] Comment on above: Performed By: #### C SUJEY, BMP #### [facility] ([id number]) [address] [place] [address] 61393 CBC AND AUTO DIFFon 06-27-19 25 ABSOLUTE BASOPHIL 0.1 X10E9/L Normal 0.0-0.2 [facility] Comment on above: Performed By: #### C SUJEY, BMP #### [facility] ([id number]) [address] [place] [address] 66449 ABSOLUTE NEUTROPHIL 7.8 X10E9/L High 1.5-6.6 [facility] Comment on above: Performed By: #### Davis RM, BMP #### [facility] ([id number]) [address] [place] [address] 84575 Basophils/100 WBC (Bld) 0.7 % Normal [facility] Comment on above: Performed By: #### Davis RM, BMP #### [facility] ([id number]) [address] [place] [address] 52739 Eosinophils (Bld) [#/Vol] 0.0 10*3/uL Normal 0.0-0.4 [facility] Comment on above: Performed By: #### C SUJEY, BMP #### [facility] ([id number]) [address] [place] [address] 76445 Eosinophils/100 WBC (Bld) 0.1 % Normal [facility] Comment on above: Performed By: #### Davis RM, BMP #### [facility] ([id number]) [address] [place] [address] 68400 Erythrocyte distribution width (RBC) [Ratio] 12.7 % Normal 11.5-15.0 [facility] Comment on above: Performed By: #### C BCA, BMP #### [facility] ([id number]) [address] [place] [address] 25802 Hematocrit (Bld) [Volume fraction] 38.3 % Normal 35-47 [facility] Comment on above: Performed By: #### C BCA, BMP #### [facility] ([id number]) [address] [place] [address] 72048 Hemoglobin (Bld) [Mass/Vol] 13.2 g/dL Normal 11.7-15.5 [facility] Comment on above: Performed By: #### C SUJEY, BMP #### [facility] ([id number]) [address] [place] [address] 36052 Lymphocytes (Bld) [#/Vol] 1.4 10*3/uL Normal 1.0-3.5 [facility] Comment on above: Performed By: #### C BCA, BMP #### [facility] ([id number]) [address] [place] [address] 85020 Lymphocytes/100 WBC (Bld) 14.5 % Normal [facility] Comment on above: Performed By: #### C BCA, BMP #### [facility] ([id number]) [address] [place] [address] 83251 MCH (RBC) [Entitic mass] 30.5 pg Normal 27-34 [facility] Comment on above: Performed By: #### C BCA, BMP #### [facility] ([id number]) [address] [place] [address] 20313 MCHC (RBC) [Mass/Vol] 34.5 g/dL Normal 32-36 [facility] Comment on above: Performed By: #### C BCA, BMP #### [facility] ([id number]) [address] [place] [address] 51317 MCV (RBC) [Entitic vol] 88 fL Normal 80-100 [facility] Comment on above: Performed By: #### C SUJEY, BMP #### [facility] ([id number]) [address] [place] [address] 64823 Monocytes (Bld) [#/Vol] 0.3 10*3/uL Normal 0-0.9 [facility] Comment on above: Performed By: #### C SUJEY, BMP #### [facility] ([id number]) [address] [place] [address] 64324 Monocytes/100 WBC (Bld) 3.3 % Normal [facility] Comment on above: Performed By: #### Davis RM, BMP #### [facility] ([id number]) [address] [place] [address] 48077 Neutrophils/100 WBC (Bld) 81.4 % Normal [facility] Comment on above: Performed By: #### C SUJEY, BMP #### [facility] ([id number]) [address] [place] [address] 73108 Platelet mean volume (Bld) [Entitic vol] 8.2 fL Normal 7-12 [facility] Comment on above: Performed By: #### C SUJEY, BMP #### [facility] ([id number]) [address] [place] [address] 86302 Platelets (Bld) [#/Vol] 321 10*3/uL Normal 150-450 [facility] Comment on above: Performed By: #### C SUJEY, BMP #### [facility] ([id number]) [address] [place] [address] 06090 RBC COUNT 4.33 X10E12/L Normal 3.80-5.20 [facility] Comment on above: Performed By: #### C SUJEY, BMP #### [facility] ([id number]) [address] [place] [address] 90641 WBC (Bld) [#/Vol] 9.6 10*3/uL Normal 4.0-11.0 [facility] Comment on above: Performed By: #### C BCA, BMP #### [facility] ([id number]) [address] [place] [address] 30160 COMPREHENSIVE METABOLIC PANE Fernando 06-27-2024 Albumin [Mass/Vol] 3.6 g/dL Normal 3.2-5.3 [facility] Comment on above: Performed By: #### C BCA, BMP #### [facility] ([id number]) [address] [place] [address] 25174 ALP [Catalytic activity/Vol] 59 U/L Normal 39-130 [facility] Comment on above: Performed By: #### C BCA, BMP #### [facility] ([id number]) [address] [place] [address] 94987 ALT [Catalytic activity/Vol] 36 U/L High 0-31 [facility] Comment on above: Performed By: #### C BCA, BMP #### [facility] ([id number]) [address] [place] [address] 47710 Anion gap [Moles/Vol] 8 mmol/L Normal 5-15 [facility] Comment on above: Performed By: #### C BCA, BMP #### [facility] ([id number]) [address] [place] [address] 71834 AST [Catalytic activity/Vol] 21 U/L Normal 0-41 [facility] Comment on above: Performed By: #### C BCA, BMP #### [facility] ([id number]) [address] [place] [address] 82535 Bilirubin [Mass/Vol] 0.7 mg/dL Normal 0.3-1.2 [facility] Comment on above: Performed By: #### C BCA, BMP #### [facility] ([id number]) [address] [place] [address] 73080 Calcium [Mass/Vol] 8.7 mg/dL Normal 8.5-10.5 [facility] Comment on above: Performed By: #### C SUJEY, BMP #### [facility] ([id number]) [address] [place] [address] 17207 Chloride [Moles/Vol] 108 mmol/L Normal 98-109 [facility] Comment on above: Performed By: #### C SUJEY, BMP #### [facility] ([id number]) [address] [place] [address] 91757 CO2 [Moles/Vol] 21 mmol/L Low 22-32 [facility] Comment on above: Performed By: #### C SUJEY, BMP #### [facility] ([id number]) [address] [place] [address] 91379 Creatinine [Mass/Vol] 0.55 mg/dL Normal 0.40-1.00 [facility] Comment on above: Result Comment: METH OD TRACEABLE TO IDMS STANDARD Performed By: #### C SUJEY, BMP #### [facility] ([id number]) [address] [place] [address] 24655 eGFR (CKD-EPI) NON-RACE DEPENDENT >90 Normal >59 [facility] Comment on above: Result Comment: Reported eGFR is based on the CKD-EPI 2021 equation that does not use a race coefficient. Performed By: #### C BCA, BMP #### [facility] ([id number]) [address] [place] [address] 07675 Glucose [Mass/Vol] 141 mg/dL High 65-99 [facility] Comment on above: Performed By: #### C BCA, BMP #### [facility] ([id number]) [address] [place] [address] 70931 Potassium [Moles/Vol] 3.8 mmol/L Normal 3.5-5.0 [facility] Comment on above: Performed By: #### C BCA, BMP #### [facility] ([id number]) [address] [place] [address] 29820 Protein [Mass/Vol] 6.5 g/dL Normal 6.0-8.0 [facility] Comment on above: Performed By: #### C BCA, BMP #### [facility] ([id number]) [address] [place] [address] 27188 Sodium [Moles/Vol] 137 mmol/L Normal 134-146 [facility] Comment on above: Performed By: #### C BCA, BMP #### [facility] ([id number]) [address] [place] [address] 41568 Urea nitrogen [Mass/Vol] 11 mg/dL Normal 5-23 [facility] Comment on above: Performed By: #### C BCA, BMP #### [facility] ([id number]) [address] [place] [address] NECK SOFT TISSUE W CONTon 06-27-2024 CT NECK SOFT TISSUE W CONT CT NECK SOFT TISSUE W CONT STUDY: CT NECK SOFT TISSUE W CONT INDICATION: Neck mass, nonpulsatile. TECHNIQUE: * CT of the neck performed following the uneventful administration of intravenous contrast. Multiplanar reformats were created and reviewed. * All CT scans at this facility use dose modulation, iterative reconstruction, and/or weight based dosing when appropriate to reduce radiation dose to as low as reasonably achievable. FINDINGS: Head/orbits: Visualized intracranial compartment is unremarkable. Partially visualized orbits and globes appear unremarkable. Mucosal surface: Prominent lingual tonsil, unchanged. Otherwise no significant lesion along the nasopharynx, oral cavity, oropharynx or hypopharynx by technique. Larynx: No focal mass within the supraglottic, glottic or subglottic larynx. Pediatric Physician/Paraphary ngeal: Muscles of mastication are unremarkable. Parapharyngeal fat is not displaced. Retropharyngeal: No retropharyngeal fluid. Thyroid: Normal thyroid without discrete lesion. Glands: Slight hyperenhancement of the left submandibular gland relative to the right. This overall is slightly improved from 06/25/2024. Slight interval decrease in surrounding fluid. Residual thickening of the overlying left platysma with slight interval worsening of subcutaneous fat stranding. Nodes: Scattered, mildly prominent lymph nodes do not meet strict size criteria for lymphadenopathy. Vascular: Normal vascular enhancement without high grade arterial narrowing. Normal venous opacification. Soft tissues: No focal soft tissue mass or skin lesion. Sinus/Dentition: Mild mucosal thickening of the maxillary sinuses. Middle ear cavities and mastoid air cells are clear. Osseous: No suspicious osseous lesion. Thyroid, cricoid, arytenoid cartilages are unremarkable. Hyoid is within normal limits. Lungs: Visualized lung apices are unremarkable. IMPRESSION: * Slight improvement in asymmetric hyperenhancement of the left submandibular gland, and slight decrease in surrounding fluid which may reflect improving sialadenitis. * Slight worsening in fat stranding in the submandibular and submental fat, crossing the midline possibly reflecting slightly worsening superimposed cellulitis. * Similar prominence of lingual tonsil without progressive airway narrowing. * Few scattered bilateral submandibular and cervical lymph nodes, likely reactive. Finalized by Nawaf Brody on 06/27/2024 10:40 AM Normal [facility] MAGNESIUMon 06-27-2024 Magnesium [Mass/Vol] 2.0 mg/dL Normal 1.8-2.6 [facility] Comment on above: Performed By: #### C SUJEY, CAMRON #### [facility] ([id number]) [address] [place] [address] 59037 POTASSIUMon 06-27-2024 Potassium [Moles/Vol] 3.9 mmol/L Normal 3.5-5.0 [facility] Comment on above: Performed By: #### C SUJEY, BMP #### [facility] ([id number]) [address] [place] [address] 00952 Troponin I.cardiac High sens itivity method [Mass/Vol]on 06-27-2024 3 HOUR TROP I, HIGH SENSITIVITY <2 Normal <16 [facility] Comment on above: Performed By: #### C BCA, BMP #### [facility] ([id number]) [address] [place] [address] 91675 XR CHEST 1 VWon 06-27-2024 XR CHEST 1 VW XR CHEST 1 VW EXAM: XR CHEST 1 VW CLINICAL INFORMATION: CP. COMPARISON: 03/23/2017 FINDINGS: There are no pleural effusions. The lungs are clear and well aerated. Heart size is within normal limits. IMPRESSION: 1. No acute cardiopulmonary disease. Finalized by Kam Barkley MD on 06/27/2024 12:38 PM Normal [facility] CBC AND AUTO DIFFon 06-26-19 25 ABSOLUTE BASOPHIL 0.0 X10E9/L Normal 0.0-0.2 [facility] Comment on above: Performed By: #### C SUJEY [facility], [id number] #### [facility] ([id number]) [address] [place] [address] 11454 ABSOLUTE NEUTROPHIL 6.0 X10E9/L Normal 1.5-6.6 [facility] Comment on above: Performed By: #### Davis RM CMP, [id number] #### [facility] ([id number]) [address] [place] [address] 07801 Basophils/100 WBC (Bld) 0.2 % Normal [facility] Comment on above: Performed By: #### Davis RM CMP, 49965-4 #### [facility] ([id number]) [address] [place] [address] 90309 Eosinophils (Bld) [#/Vol] 0.0 10*3/uL Normal 0.0-0.4 [facility] Comment on above: Performed By: #### Davis RM, CMP, 00203-4 #### [facility] ([id number]) [address] [place] [address] 14156 Eosinophils/100 WBC (Bld) 0.4 % Normal [facility] Comment on above: Performed By: #### C SUJEY [facility], 07266-1 #### [facility] ([id number]) [address] [place] [address] 90486 Erythrocyte distribution width (RBC) [Ratio] 12.6 % Normal 11.5-15.0 [facility] Comment on above: Performed By: #### Davis RM [facility], 91169-8 #### [facility] ([id number]) [address] [place] [address] 94890 Hematocrit (Bld) [Volume fraction] 40.5 % Normal 35-47 [facility] Comment on above: Performed By: #### C SUJEY [facility], 37681-0 #### [facility] ([id number]) [address] [place] [address] 28988 Hemoglobin (Bld) [Mass/Vol] 13.7 g/dL Normal 11.7-15.5 [facility] Comment on above: Performed By: #### Davis RM [facility], 32397-5 #### [facility] ([id number]) [address] [place] [address] 13058 Lymphocytes (Bld) [#/Vol] 1.1 10*3/uL Normal 1.0-3.5 [facility] Comment on above: Performed By: #### Davis RM [facility], 66956-8 #### [facility] ([id number]) [address] [place] [address] 44452 Lymphocytes/100 WBC (Bld) 15.5 % Normal [facility] Comment on above: Performed By: #### Davis RM [facility], 32875-3 #### [facility] ([id number]) [address] [place] [address] 96540 MCH (RBC) [Entitic mass] 30.1 pg Normal 27-34 [facility] Comment on above: Performed By: #### C SUJEY, CMP, #### [facility] ([id number]) [address] [place] [address] 50336 MCHC (RBC) [Mass/Vol] 33.8 g/dL Normal 32-36 [facility] Comment on above: Performed By: #### C BCA, CMP, #### [facility] ([id number]) [address] [place] [address] 35796 MCV (RBC) [Entitic vol] 89 fL Normal 80-100 [facility] Comment on above: Performed By: #### Davis RM, CMP, #### [facility] ([id number]) [address] [place] [address] 32506 Monocytes (Bld) [#/Vol] 0.1 10*3/uL Normal 0-0.9 [facility] Comment on above: Performed By: #### Davis BCA, CMP, #### [facility] ([id number]) [address] [place] [address] 14393 Monocytes/100 WBC (Bld) 1.8 % Normal [facility] Comment on above: Performed By: #### Davis BCA, CMP, 63774-9 #### [facility] ([id number]) [address] [place] [address] 57126 Neutrophils/100 WBC (Bld) 82.1 % Normal [facility] Comment on above: Performed By: #### C BCA, CMP, 34120-5 #### [facility] ([id number]) [address] [place] [address] 21744 Platelet mean volume (Bld) [Entitic vol] 8.3 fL Normal 7-12 [facility] Comment on above: Performed By: #### C BCA, CMP, #### [facility] ([id number]) [address] [place] [address] 50550 Platelets (Bld) [#/Vol] 265 10*3/uL Normal 150-450 [facility] Comment on above: Performed By: #### C BCA, CMP, 88935-2 #### [facility] ([id number]) [address] [place] [address] 47810 RBC COUNT 4.55 X10E12/L Normal 3.80-5.20 [facility] Comment on above: Performed By: #### C BCA, CMP, 28654-2 #### [facility] ([id number]) [address] [place] [address] 05691 WBC (Bld) [#/Vol] 7.3 10*3/uL Normal 4.0-11.0 [facility] Comment on above: Performed By: #### C SUJEY, CMP, 58991-4 #### [facility] ([id number]) [address] [place] [address] 94348 COMPREHENSIVE METABOLIC PANE Fernando 06-26-2024 Albumin [Mass/Vol] 4.0 g/dL Normal 3.2-5.3 [facility] Comment on above: Performed By: #### C BCA, CMP, 34075-8 #### [facility] ([id number]) [address] [place] [address] 95942 ALP [Catalytic activity/Vol] 67 U/L Normal 39-130 [facility] Comment on above: Performed By: #### C BCA, CMP, 42034-9 #### [facility] ([id number]) [address] [place] [address] 37826 ALT [Catalytic activity/Vol] 43 U/L High 0-31 [facility] Comment on above: Performed By: #### C BCA, CMP, 84347-7 #### [facility] ([id number]) [address] [place] [address] Anion gap [Moles/Vol] 10 mmol/L Normal 5-15 [facility] Comment on above: Performed By: #### C SHEA RM, 96555-2 #### [facility] ([id number]) [address] [place] [address] 74288 AST [Catalytic activity/Vol] 33 U/L Normal 0-41 [facility] Comment on above: Performed By: #### C SHEA RM, 13374-7 #### [facility] ([id number]) [address] [place] [address] 98869 Bilirubin [Mass/Vol] 0.4 mg/dL Normal 0.3-1.2 [facility] Comment on above: Performed By: #### C SHEA RM, 95478-7 #### [facility] ([id number]) [address] [place] [address] 78000 Calcium [Mass/Vol] 8.9 mg/dL Normal 8.5-10.5 [facility] Comment on above: Performed By: #### C SUJEY [facility], 99121-2 #### [facility] ([id number]) [address] [place] [address] 77101 Chloride [Moles/Vol] 106 mmol/L Normal 98-109 [facility] Comment on above: Performed By: #### C SUJEY [facility], 89410-2 #### [facility] ([id number]) [address] [place] [address] 13599 CO2 [Moles/Vol] 20 mmol/L Low 22-32 [facility] Comment on above: Performed By: #### C SUJEY CMP, 76121-8 #### [facility] ([id number]) [address] [place] [address] 68210 Creatinine [Mass/Vol] 0.57 mg/dL Normal 0.40-1.00 [facility] Comment on above: Result Comment: METH OD TRACEABLE TO IDMS STANDARD Performed By: #### C SHEA RM, 80640-7 #### [facility] ([id number]) [address] [place] [address] 07452 eGFR (CKD-EPI) NON-RACE DEPENDENT >90 Normal >59 [facility] Comment on above: Result Comment: Reported eGFR is based on the CKD-EPI 2020 equation that does not use a race coefficient. Performed By: #### C SHEA RM, #### [facility] ([id number]) [address] [place] [address] 10282 Glucose [Mass/Vol] 129 mg/dL High 65-99 [facility] Comment on above: Performed By: #### Davis RM CMP, 31517-3 #### [facility] ([id number]) [address] [place] [address] 06620 Potassium [Moles/Vol] 4.1 mmol/L Normal 3.5-5.0 [facility] Comment on above: Performed By: #### C SHEA RM, 24395-1 #### [facility] ([id number]) [address] [place] [address] 34767 Protein [Mass/Vol] 7.0 g/dL Normal 6.0-8.0 [facility] Comment on above: Performed By: #### C SHEA RM, 04675-1 #### [facility] ([id number]) [address] [place] [address] 06022 Sodium [Moles/Vol] 136 mmol/L Normal 134-146 [facility] Comment on above: Performed By: #### C SHEA RM, 60441-5 #### [facility] ([id number]) [address] [place] [address] 16890 Urea nitrogen [Mass/Vol] 9 mg/dL Normal 5-23 [facility] Comment on above: Performed By: #### C SHEA RM, #### [facility] ([id number]) [address] [place] [address] 47631 MAGNESIUMon 06-26-2024 Magnesium [Mass/Vol] 2.1 mg/dL Normal 1.8-2.6 [facility] Comment on above: Performed By: #### C BCA, CMP, 74142-9 #### [facility] ([id number]) [address] [place] [address] 48131 BASIC METABOLIC PANLon 06-25 Anion gap [Moles/Vol] 6 mmol/L Normal 5-15 [facility] Comment on above: Performed By: #### C BCA, BMP #### [facility] ([id number]) [address] [place] [address] 08791 Calcium [Mass/Vol] 9.0 mg/dL Normal 8.5-10.5 [facility] Comment on above: Performed By: #### C BCA, BMP #### [facility] ([id number]) [address] [place] [address] 87150 Chloride [Moles/Vol] 106 mmol/L Normal 98-109 [facility] Comment on above: Performed By: #### C BCA, BMP #### [facility] ([id number]) [address] [place] [address] 72897 CO2 [Moles/Vol] 25 mmol/L Normal 22-32 [facility] Comment on above: Performed By: #### C BCA, BMP #### [facility] ([id number]) [address] [place] [address] 59577 Creatinine [Mass/Vol] 0.54 mg/dL Normal 0.40-1.00 [facility] Comment on above: Result Comment: METH OD TRACEABLE TO IDMS STANDARD Performed By: #### C BCA, BMP #### [facility] ([id number]) [address] [place] [address] [place] [address] eGFR (CKD-EPI) NON-RACE DEPENDENT >90 Normal >59 [facility] Comment on above: Result Comment: Reported eGFR is based on the CKD-EPI 2020 equation that does not use a race coefficient. Performed By: #### C SUJEY, BMP #### [facility] ([id number]) [address] [place] [address] 32291 Glucose [Mass/Vol] 145 mg/dL High 65-99 [facility] Comment on above: Performed By: #### C SUJEY, BMP #### [facility] ([id number]) [address] [place] [address] 55667 Potassium [Moles/Vol] 3.5 mmol/L Normal 3.5-5.0 [facility] Comment on above: Performed By: #### C SUJEY, BMP #### [facility] ([id number]) [address] [place] [address] 15889 Sodium [Moles/Vol] 137 mmol/L Normal 134-146 [facility] Comment on above: Performed By: #### C SUJEY, BMP #### [facility] ([id number]) [address] [place] [address] 88962 Urea nitrogen [Mass/Vol] 9 mg/dL Normal 5-23 [facility] Comment on above: Performed By: #### C SUJEY, BMP #### [facility] ([id number]) [address] [place] [address] 04222 CBC AND AUTO DIFFon 02-15-20 25 ABSOLUTE BASOPHIL 0.1 X10E9/L Normal 0.0-0.2 [facility] Comment on above: Performed By: #### C SUJEY, BMP #### [facility] ([id number]) [address] [place] [address] 55914 ABSOLUTE NEUTROPHIL 3.1 X10E9/L Normal 1.5-6.6 [facility] Comment on above: Performed By: #### C BCA, BMP #### [facility] ([id number]) [address] [place] [address] 94059 Basophils/100 WBC (Bld) 0.9 % Normal [facility] Comment on above: Performed By: #### C BCA, BMP #### [facility] ([id number]) [address] [place] [address] 42950 Eosinophils (Bld) [#/Vol] 0.1 10*3/uL Normal 0.0-0.4 [facility] Comment on above: Performed By: #### C SUJEY, BMP #### [facility] ([id number]) [address] [place] [address] 93605 Eosinophils/100 WBC (Bld) 2.0 % Normal [facility] Comment on above: Performed By: #### C SUJEY, BMP #### [facility] ([id number]) [address] [place] [address] 54019 Erythrocyte distribution width (RBC) [Ratio] 12.7 % Normal 11.5-15.0 [facility] Comment on above: Performed By: #### C SUJEY, BMP #### [facility] ([id number]) [address] [place] [address] 52401 Hematocrit (Bld) [Volume fraction] 39.8 % Normal 35-47 [facility] Comment on above: Performed By: #### C SUJEY, BMP #### [facility] ([id number]) [address] [place] [address] 92050 Hemoglobin (Bld) [Mass/Vol] 13.6 g/dL Normal 11.7-15.5 [facility] Comment on above: Performed By: #### C BCA, BMP #### [facility] ([id number]) [address] [place] [address] 76779 Lymphocytes (Bld) [#/Vol] 2.8 10*3/uL Normal 1.0-3.5 [facility] Comment on above: Performed By: #### C SUJEY, BMP #### [facility] ([id number]) [address] [place] [address] 98754 Lymphocytes/100 WBC (Bld) 44.5 % Normal [facility] Comment on above: Performed By: #### C SUJEY, BMP #### [facility] ([id number]) [address] [place] [address] 43603 MCH (RBC) [Entitic mass] 30.2 pg Normal 27-34 [facility] Comment on above: Performed By: #### C SUJEY, BMP #### [facility] ([id number]) [address] [place] [address] 94838 MCHC (RBC) [Mass/Vol] 34.2 g/dL Normal 32-36 [facility] Comment on above: Performed By: #### C SUJEY, BMP #### [facility] ([id number]) [address] [place] [address] 91892 MCV (RBC) [Entitic vol] 88 fL Normal 80-100 [facility] Comment on above: Performed By: #### C SUJEY, BMP #### [facility] ([id number]) [address] [place] [address] 24188 Monocytes (Bld) [#/Vol] 0.3 10*3/uL Normal 0-0.9 [facility] Comment on above: Performed By: #### C BCA, BMP #### [facility] ([id number]) [address] [place] [address] 81866 Monocytes/100 WBC (Bld) 4.1 % Normal [facility] Comment on above: Performed By: #### C BCA, BMP #### [facility] ([id number]) [address] [place] [address] 98168 Neutrophils/100 WBC (Bld) 48.5 % Normal [facility] Comment on above: Performed By: #### Davis RM, BMP #### [facility] ([id number]) [address] [place] [address] 39642 Platelet mean volume (Bld) [Entitic vol] 7.8 fL Normal 7-12 [facility] Comment on above: Performed By: #### Davis RM, BMP #### [facility] ([id number]) [address] [place] [address] 45423 Platelets (Bld) [#/Vol] 289 10*3/uL Normal 150-450 [facility] Comment on above: Performed By: #### Davis RM, BMP #### [facility] ([id number]) [address] [place] [address] 06355 RBC COUNT 4.51 X10E12/L Normal 3.80-5.20 [facility] Comment on above: Performed By: #### Davis RM, BMP #### [facility] ([id number]) [address] [place] [address] 44234 WBC (Bld) [#/Vol] 6.4 10*3/uL Normal 4.0-11.0 [facility] Comment on above: Performed By: #### Davis RM, BMP #### [facility] ([id number]) [address] [place] [address] NECK SOFT TISSUE W CONTon 06-25-2024 CT NECK SOFT TISSUE W CONT CT NECK SOFT TISSUE W CONT History: Nonpulsatile neck mass. Left submandibular lymphadenopathy. Swelling and crossing midline anterior neck. Exam/Technique: Contrast enhanced CT of the neck with multiplanar reconstructions. Comparison: None Findings: There is prominent left submandibular sialadenitis with diffuse edema throughout the gland. There are surrounding inflammatory changes and fascial thickening anteriorly. Inflammatory appearing streaking is displayed and adjacent submandibular and sublingual fat, crossing the midline. There is focal superficial inflammatory streaking in subcutaneous fat overlying the left submandibular gland. In addition there is prominent enlargement of lingual tonsillar tissue that is moderately narrowing the airway just above the epiglottis. There appears to be some associated thickening of the aryepiglottic folds as well, without enlargement of the epiglottis itself is seen sagittally. The uvula appears somewhat thickened as well. There is submandibular lymphadenopathy and some enlarged nodes in the deep change in upper cervical levels bilaterally. Lymph nodes measure up to maximum of 10 mm in short axis. No dental abscesses or other distinct bony abnormalities in the area. There is mild mucosal thickening throughout the paranasal sinuses. IMPRESSION: Left submandibular sialadenitis with extensive associated inflammatory changes in fat, in keeping with cellulitis, crossing the midline. Prominent lingual tonsillar enlargement narrowing the airway in the lower oropharynx. Bilateral submandibular and adjacent cervical lymphadenopathy All CT scans at this facility use dose modulation, iterative reconstruction, and/or weight based dosing when appropriate to reduce radiation dose to as low as reasonably achievable. Finalized by Vladimir Hall MD on 06/25/2024 11:59 PM Normal [facility] HCG ( test) Ql (U)o n 06-25-2024 Beta HCG ( test) Ql (U) Negative Normal NEG [facility] Comment on above: Performed By: #### 2 106-3 #### [facility] ([id number]) [address] [place] [address] 74828 RAPID STREP SCR NURSINGon S. pyogenes Ag EIA Ql (Throat) Positive Abnormal NEG [facility] Comment on above: Performed By: #### 6 556-5 #### [facility] ([id number]) [address] [place] [address] 32301 STREP PCR THROATon 5 S. pyogenes DNA TRAY+probe Nom (Unsp spec) STREP PCR THROAT Negative (qualifier value) Streptococcus Group A NOT detected by nucleic acid amplification. Normal [facility] Comment on above: Performed By: #### 4 9610-9 #### [facility] ([id number]) [address], [address] [place] [address] XR ANKLE LT MIN 3 VWSon 12- XR ANKLE LT MIN 3 VWS XR ANKLE LT MIN 3 VWS XR ANKLE LT MIN 3 VWS INDICATION: . Left ankle pain FINDINGS: Diffuse soft tissue swelling most notably at the lateral portion the left ankle. No acute fracture. No dislocation. Satisfactory alignment of the ankle mortise. Plantar calcaneal spur formation. IMPRESSION: 1. No fracture or dislocation. 2. Diffuse soft tissue swelling left ankle. 9C1 Finalized by Tyrese Emmanuel MD on 04/26/2024 12:06 PM Normal [facility] Basophils Auto (Bld) [#/Vol] on 04-18-2024 Basophils (Bld) [#/Vol] Automated basoph il count 0.0-0.1 [facility] Basophils/100 WBC Auto (Bld) on 04-18-2024 Basophils/100 WBC (Bld) Automated basophil % 0. 2-2.0 [facility] Eosinophils/100 WBC Auto (Bl d)on 04-18-2024 Eosinophils/100 WBC (Bld) Automated eosinophil % 0.9-7.0 [facility] Erythrocyte distribution wid th Auto (RBC) [Ratio]on 04-18-2024 Erythrocyte distribution width (RBC) [Ratio] Erythrocyte distribution width [Ratio] by Automated count 11.0-15.0 [facility] Hematocrit Auto (Bld) [Volum e fraction]on 04-18-2024 Hematocrit (Bld) [Volume fraction] Hematocrit [Volume Fraction] of Blood by Automated count 36.0-48.0 [facility] Hemoglobin [Mass/volume] in Bloodon 04-18-2024 Hemoglobin (Bld) [Mass/Vol] Hemoglobin [Mass/volume] in Blood 12.0-16.0 [facility] - Chemistry and C hemistry - challengeon 04-18-2024 Bilirubin Ql (U) Negative NEGATIVE [facility] Glucose (U) [Mass/Vol] Negative NEGATIVE Fi [facility] Ketones Ql (U) Negative NEGATIVE [facility] pH (U) 6.5 [pH] 5.0-9.0 [facility] Specific gravity (U) [Rel density] 1.010 1.005-1.025 [facility] Urobilinogen Qn (U) 0.2 {Melissa'U}/dL 0.2-1.0 [facility] - Hematology and Cell countson 04-18-2024 Immature granulocytes/100 WBC (Bld) 0.3 % 0.0-0.5 [facility] - Specimen inform ationon 04-18-2024 Appearance (U) CLEAR CLEAR [facility] Color (U) LT. YELLOW YELLOW [facility] - Urinalysison Leukocyte esterase Test strip Ql (U) Negative NEGATIVE [facility] Mucus Ql (Urine sed) NONE SEEN NONE SEEN [facility] Nitrite Ql (U) Negative NEGATIVE [facility] Protein Ql (U) Negative NEG/TRACE [facility] Leukocytes [#/volume] correc kenneth for nucleated erythrocytes in Blood by Automated counon 04-18-2024 WBC corrected for nucl RBC Auto (Bld) [#/Vol] Leukocytes [#/volume] corrected for nucleated erythrocytes in Blood by Automated coun 4.0-11.0 [facility] Lymphocytes Auto (Bld) [#/Vo l]on 04-18-2024 Lymphocytes (Bld) [#/Vol] Lymphocytes [#/volume] in Blood by Automated count 1.2-3.8 [facility] Lymphocytes/100 WBC Auto (Bl d)on 04-18-2024 Lymphocytes/100 WBC (Bld) Lymphocytes/100 leukocytes in Blood by Automated count 20.5-60.0 [facility] MCH Auto (RBC) [Entitic mass ]on 04-18-2024 MCH (RBC) [Entitic mass] MCH [Entitic mass] by Automated count 26.7-34.0 [facility] MCHC Auto (RBC) [Mass/Vol]on 04-18-2024 MCHC (RBC) [Mass/Vol] MCHC [Mass/volume] by Automated count 29.9-35.2 [facility] MCV Auto (RBC) [Entitic vol] on 04-18-2024 MCV (RBC) [Entitic vol] MCV [Entitic vol ume] by Automated count 81.0-99.0 [facility] Monocytes Auto (Bld) [#/Vol] on 04-18-2024 Monocytes (Bld) [#/Vol] Automated blood monocyte count 0.3-0.8 [facility] Monocytes/100 WBC Auto (Bld) on 04-18-2024 Monocytes/100 WBC (Bld) Automated monocyte % 1. 7-12.0 [facility] Neutrophils Auto (Bld) [#/Vo l]on 04-18-2024 Neutrophils (Bld) [#/Vol] Neutrophils [#/volume] in Blood by Automated count 1.4-6.5 [facility] Neutrophils/100 WBC Auto (Bl d)on 04-18-2024 Neutrophils/100 WBC (Bld) Automated neutrophil % 43.0-75.0 [facility] No Panel Informationon 04-18 Eosinophils # (Auto) 0.3 10 3/uL 0.0-0.7 [facility] Immature Granulocyte # (Auto) 0.02 10 3/uL 0.00-0.03 [facility] Urine Bacteria TRACE #/HPF Abnormal NONE SEEN [facility] Urine Occult Blood MODERATE Abnormal NEGATIVE [facility] Urine Other Casts NONE SEEN #/LPF NONE SEEN [facility] Urine Other Crystals None Seen #/HPF None Seen [facility] Urine RBC NONE SEEN #/HPF 0-2 [facility] Urine Squamous Epithelial Cells FEW #/LPF Abnormal NONE/RARE [facility] Urine WBC NONE SEEN #/HPF NONE SEEN [facility] Platelet mean volume Auto (B ld) [Entitic vol]on 04-18-2024 Platelet mean volume (Bld) [Entitic vol] Platelet mean volume [Entitic volume] in Blood by Automated count Low 9.5-13.5 [facility] Platelets Auto (Bld) [#/Vol] on 04-18-2024 Platelets (Bld) [#/Vol] Platelets [#/vol ume] in Blood by Automated count 150-450 [facility] RBC Auto (Bld) [#/Vol]on RBC (Bld) [#/Vol] Erythrocytes [#/volume] in Blood by Automated count 4.20-5.40 [facility] Influenza virus B Ag [Presen ce] in Upper respiratory specimen by Rapid immunoassayon 04-14-2024 FLUBV Ag IA.rapid Ql (Nph) Influenza virus B Ag [Presence] in Upper respiratory specimen by Rapid immunoassay [facility] - Chemistry and C hemistry - challengeon 04-14-2024 Bilirubin Ql (U) Negative [facility] Glucose (U) [Mass/Vol] Negative [facility] Ketones Ql (U) Negative [facility] pH (U) 5.0 [pH] [facility] Specific gravity (U) [Rel density] 1.015 [facility] Urobilinogen (U) [Mass/Vol] 0.2 mg/dL [facility] Laboratory - Specimen inform ationon 04-14-2024 Appearance (U) cloudy [facility] Color (U) darkyellow [facility] Laboratory - Urinalysison Leukocyte esterase Test strip Ql (U) Negative [facility] Nitrite Ql (U) Negative [facility] Protein Ql (U) + [facility] No Panel Informationon 04-14 Influenza Type A (Rapid) Negative [facility] POC SARS CoV-2 Antigen Negative [facility] Urine Occult Blood 5-10 [facility] No Panel InformationOrdered By: Krishna Hernandez on 04-14-2024 Quick Strep (POC) [facility] Fernando 08-31-2023 L Specimen: [id number] Received: 09/01/23 Status: ITZEL Mejia Num: [id number] Spec Type: Surgical Subm Dr: Jeremy Olmstead Tissues: A Soft Tissue/Surgical Margin-Other than Tumor,Mass,Lip or Genevieve (LT LABIA CYST) Procedures: HE/3, Gross/Micro L3 Age/ Patient Sex Location Account Attending Physician Adrienne Camarena 28/F LABELL [id number] Jeremy Olmstead SPEC NUM: [id number] RECD: 09/01/23 STATUS: ITZEL MEJIA NUM: [id number] TARYN: 08/31/23- SUBM DR: Jeremy Olmstead ENTERED: 09/01/[address]: Lynsey,Lab SPEC TYPE: Surgical DEPT: [facility] ORDERED: , Gross/Micro L3 ORDERED: , Gross/Micro L3 Pathological Diagnosis Soft tissue, left labial area, excision: -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 The specimen is inked black and serially sectioned to reveal inked mancia-yellow, homogenous cut surface. Instructional Assistant sections are submitted in A1?A3. Clinical history: Labial cyst, suspected lipoma TW CPT Codes 69501 Specimen: [id number] Received: 09/01/23 Status: ITZEL Mejia Num: [id number] Spec Type: Surgical Subm Dr: Jeremy Olmstead Tissues: A Soft Tissue/Surgical Margin-Other than Tumor,Mass,Lip or Genevieve (LT LABIA CYST) Procedures: , Gross/Micro L3 Patient: Adrienne Camarena [id number] (Continued) Signed (signature on file) Fran-Jeb Menchaca MD 09/03/231822 [facility] PAP ACOG PANEL 2: 21 to 29on 08-28-2022 . . Normal [facility] Comment on above: Performed By: #### [id number] #### [facility] [address] [place] [address] Dr. Medina Menchaca Age Gdln ACOG Testing - [facility] Comment on above: Performed By: #### [id number] #### [facility] [address] [address] [address] Medina Menchaca DIAGNOSIS: Comment [facility] Comment on above: Result Comment: NEGA TIVE FOR INTRAEPITHELIAL LESION OR MALIGNANCY. Performed By: #### [id number] #### [facility] [address] [address] [address] Medina Menchaca Methodology: Comment [facility] Comment on above: Result Comment: This liquid based ThinPrep(R) pap test was screened with the use of an image guided system. Performed By: #### [id number] #### [facility] [address] [place] [address] Dr. Medina Menchaca Note: Comment [facility] Comment on above: Result Comment: The Pap smear is a screening test designed to aid in the detection of premalignant and malignant conditions of the uterine cervix. It is not a diagnostic procedure and should not be used as the sole means of detecting cervical cancer. Both false-positive and false-negative reports do occur. . Performed By: #### [id number] #### [facility] [address] [place] [address] Dr. Medina Menchaca Performed by: Comment Normal [facility] Comment on above: Result Comment: Ernie Martel P 3 Armament/Ordnance Ima Technician (ASCP) Performed By: #### [id number] #### [facility] [address] [place] [address] Dr. Medina Menchaca Reflex Criteria: Comment Normal [facility] Comment on above: Result Comment: The HPV DNA reflex criteria were not met with this specimen result therefore, no HPV testing was performed. . Performed By: #### 4 [id number] #### [facility] [address] [place] [address] Dr. Medina Menchaca Specimen adequacy: Comment Normal [facility] Comment on above: Result Comment: Sati sfactory for evaluation. No endocervical component is identified. Performed By: #### [id number] #### [facility] [address] [place] [address] Dr. Medina Menchaca CULTURE URINEon 03-06-2022 CULTURE URINE Isolate 1 Escherichia coli >100,000 cfu/mL of ORGANISM 1 Escherichia coli ANTIBIOTIC M.I.C RX STATUS Ampicillin >=32 R F Ampicillin/Sulbactam 16 I F Piperacillin/Tazobac reese <=4 S F Cefazolin <=4 S F Ceftazidime <=1 S F Ceftriaxone <=1 S F Ertapenem <=0.5 S F Imipenem <=0.25 S F Amikacin <=2 S F Gentamicin <=1 S F Tobramycin <=1 S F Ciprofloxacin <=0.25 S F Levofloxacin <=0.12 S F Nitrofurantoin <=16 S F Trimethoprim/Sulfame thoxazole <=20 S F Normal [facility] Comment on above: Performed By: #### U RCX #### [facility] [address] [place] [address] Dr. Medina Menchaca CBC AUTO DIFFon 03-03-2022 BASO # 0.0 103/ul Normal 0.0-0.1 [facility] Comment on above: Performed By: #### C BC #### [facility] [address] [place] [address] Dr. Medina Menchaca Basophils/100 WBC (Bld) 0.2 % Normal 0.2-2.0 [facility] Comment on above: Performed By: #### C BC #### [facility] [address] [place] [address] Dr. Medina Menchaca EO # 0.1 103/ul Normal 0.0-0.7 [facility] Comment on above: Performed By: #### C BC #### [facility] [address] [place] [address] Dr. Medina Menchaca Eosinophils/100 WBC (Bld) 1.2 % Normal 0.9-7.0 [facility] Comment on above: Performed By: #### C BC #### [facility] [address] [place] [address] Dr. Medina Menchaca Erythrocyte distribution width (RBC) [Ratio] 12.5 % Normal 11.0-15.0 [facility] Comment on above: Performed By: #### C BC #### [facility] [address] [place] [address] Dr. Medina Menchaca Hematocrit (Bld) [Volume fraction] 41.5 % Normal 36.0-48.0 [facility] Comment on above: Performed By: #### C BC #### [facility] [address] [place] [address] Dr. Medina Menchaca Hemoglobin (Bld) [Mass/Vol] 13.8 g/dL Normal 12.0-16.0 [facility] Comment on above: Performed By: #### C BC #### [facility] [address] [place] [address] Dr. Medina Menchaca IG # 0.03 10e3/ul Normal 0.00-0.03 [facility] Comment on above: Performed By: #### C BC #### [facility] [address] [place] [address] Dr. Medina Menchaca IG % 0.3 % Normal 0.0-0.5 [facility] Comment on above: Performed By: #### C BC #### [facility] [address] [address] [address] Medina Menchaca LYMPH # 2.2 103/ul Normal 1.2-3.8 [facility] Comment on above: Performed By: #### C BC #### [facility] [address] [address] [address] Medina Menchaca Lymphocytes/100 WBC (Bld) 24.4 % Normal 20.5-60.0 [facility] Comment on above: Performed By: #### C BC #### [facility] [address] [place] [address] Dr. Medina Menchaca MANUAL DIFF REQ NO Normal [facility] Comment on above: Performed By: #### C BC #### [facility] [address] [place] [address] Dr. Medina Menchaca MCH (RBC) [Entitic mass] 30.5 pg Normal 26.7-34.0 [facility] Comment on above: Performed By: #### C BC #### [facility] [address] [place] [address] Dr. Medina Menchaca MCHC (RBC) [Mass/Vol] 33.3 g/dL Normal 29.9-35.2 [facility] Comment on above: Performed By: #### C BC #### [facility] [address] [place] [address] Dr. Medina Menchaca MCV (RBC) [Entitic vol] 91.6 fL Normal 81.0-99.0 [facility] Comment on above: Performed By: #### C BC #### [facility] [address] [place] [address] Dr. Medina Menchaca MONO # 0.4 103/ul Normal 0.3-0.8 [facility] Comment on above: Performed By: #### C BC #### [facility] [address] [place] [address] Dr. Medina Menchaca Monocytes/100 WBC (Bld) 4.4 % Normal 1.7-12.0 [facility] Comment on above: Performed By: #### C BC #### [facility] [address] [place] [address] Dr. Medina Menchaca NEUT # 6.2 103/ul Normal 1.4-6.5 [facility] Comment on above: Performed By: #### C BC #### [facility] [address] [place] [address] Dr. Medina Menchaca Neutrophils/100 WBC (Bld) 69.5 % Normal 43.0-75.0 [facility] Comment on above: Performed By: #### C BC #### [facility] [address] [place] [address] Dr. Medina Menchaca Platelet mean volume (Bld) [Entitic vol] 10.6 fL Normal 9.5-13.5 [facility] Comment on above: Performed By: #### C BC #### [facility] [address] [place] [address] Dr. Medina Menchaca PLT 197 103/ul Normal 150-450 [facility] Comment on above: Performed By: #### C BC #### [facility] [address] [place] [address] Dr. Medina Menchaca RBC 4.53 106/ul Normal 4.20-5.40 [facility] Comment on above: Performed By: #### C BC #### [facility] [address] [place] [address] Dr. Medina Menchaca WBC 8.9 103/ul Normal 4.0-11.0 [facility] Comment on above: Performed By: #### C BC #### [facility] [address] [place] [address] ABD/PELV W CONon 03-03-20 CT ABD/PELV W CON EXAMINATION: CT ABD/PELV W CON HISTORY: Acute appendicitis . Right lower quadrant pain for one week. COMPARISON: None. TECHNIQUE: IV contrast enhanced CT imaging the abdomen and pelvis was performed using 100 mL of Omnipaque 300 intravenous contrast. Dose reduction techniques were achieved by using automated exposure control and/or adjustment of mA and/or kV according to patient size and/or use of iterative reconstruction technique. FINDINGS: CT ABDOMEN: The lung bases are clear. Cardiac size is normal. There is no pericardial effusion. The liver, gallbladder, pancreas, spleen, adrenal glands, kidneys, aorta, IVC, stomach and small bowel appear unremarkable. There is a fat-containing umbilical hernia. CT PELVIS: A normal appendix is seen on image 89. The pelvic small bowel loops are unremarkable. An IUD is in good position in the otherwise unremarkable uterus. The bilateral ovaries appear normal on image 107. There is diffuse urinary bladder wall thickening with surrounding fat stranding consistent with cystitis. There is a normal volume of stool and gas in the colon with fatty infiltration in the wall of the descending colon compatible with prior colitis. No loculated fluid or free air is seen in the abdomen or pelvis. No acute osseous abnormality or suspicious bony lesion is seen. IMPRESSION: 1. Diffuse urinary bladder wall thickening and surrounding fat stranding consistent with cystitis. No other acute findings in the abdomen or pelvis. 2. Normal appendix. Electronically authenticated by: ROGELIO FUCHS Date: 2022-03-03 20:58 Normal [facility] ER URINE PROFILEon 2 Bilirubin Ql (U) Negative Normal NEGATIVE [facility] Comment on above: Performed By: #### U MICRO, PREGU, ERUR #### [facility] [address] [place] [address] Dr. Medina Menchaca Clarity (U) CLEAR Normal CLEAR [facility] Comment on above: Performed By: #### U MICRO, PREGU, ERUR #### [facility] [address] [place] [address] Dr. Meidna Menchaca Color (U) LT. YELLOW Normal YELLOW [facility] Comment on above: Performed By: #### U MICRO, PREGU, ERUR #### [facility] [address] [place] [address] Dr. Medina Menchaca ERUAHD A micrscopic examination will be performed if indicated. Normal [facility] Comment on above: Performed By: #### U MICRO, PREGU, ERUR #### [facility] [address] [place] [address] Dr. Medina Menchaca Glucose Ql (U) Negative Normal NEGATIVE [facility] Comment on above: Performed By: #### U MICRO, PREGU, ERUR #### [facility] [address] [place] [address] Dr. Medina Menchaca Hemoglobin Ql (U) TRACE-INTACT Abnormal NEGATIVE [facility] Comment on above: Performed By: #### U MICRO, PREGU, ERUR #### [facility] [address] [address] [address] Medina Menchaca Ketones Ql (U) Negative Normal NEGATIVE [facility] Comment on above: Performed By: #### U MICRO, PREGU, ERUR #### [facility] [address] [address] [address] Medina Menchaca LEUKOCYTES TRACE Abnormal NEGATIVE [facility] Comment on above: Performed By: #### U MICRO, PREGU, ERUR #### [facility] [address] [place] [address] Dr. Medina Menchaca Nitrite Ql (U) Negative Normal NEGATIVE [facility] Comment on above: Performed By: #### U MICRO, PREGU, ERUR #### [facility] [address] [place] [address] Dr. Medina Menchaca pH (U) 6.0 [pH] Normal 5-9 [facility] Comment on above: Performed By: #### U MICRO, PREGU, ERUR #### [facility] [address] [place] [address] Dr. Medina Menchaca SPEC GRAVITY 1.020 Normal 1.005-<=1.025 [facility] Comment on above: Performed By: #### U MICRO, PREGU, ERUR #### [facility] [address] [place] [address] Dr. Medina Menchaca UA PROTEIN Negative Normal NEGATIVE/ TRACE [facility] Comment on above: Performed By: #### U MICRO, PREGU, ERUR #### [facility] [address] [address] [address] Medina Menchaca UR MICRO IND INDICATED Normal [facility] Comment on above: Performed By: #### U MICRO, PREGU, ERUR #### [facility] [address] [place] [address] Dr. Medina Menchaca Urobilinogen Qn (U) 1.0 {Melissa'U}/dL Normal 0.2 - 1. 0 [facility] Comment on above: Performed By: #### U MICRO, PREGU, ERUR #### [facility] [address] [place] [address] Dr. Medina Menchaca LIPASEon 03-03-2022 Lipase [Catalytic activity/Vol] 116.0 U/L Normal 73.0-393.0 [facility] Comment on above: Performed By: #### L IPA, CMP #### [facility] [address] [place] [address] Dr. Medina Menchaca URon 03-03-2022 , QUAL Negative Normal NEGATIVE [facility] Comment on above: Performed By: #### U MICRO, PREGU, ERUR #### [facility] [address] [place] [address] Dr. Medina Menchaca PROF 14(COMP METB)on 022 Albumin [Mass/Vol] 3.7 g/dL Normal 3.4-5.0 [facility] Comment on above: Performed By: #### L IPA, CMP #### [facility] [address] [place] [address] Dr. Medina Menchaca Albumin/Globulin [Mass ratio] 1.1 {ratio} Normal [facility] Comment on above: Performed By: #### L IPA, CMP #### [facility] [address] [place] [address] Dr. Medina Menchaca ALP [Catalytic activity/Vol] 117 U/L Critically high 46-116 [facility] Comment on above: Performed By: #### L IPA, CMP #### [facility] [address] [place] [address] Dr. Medina Menchaca ALT [Catalytic activity/Vol] 68 U/L Critically high 14-59 [facility] Comment on above: Performed By: #### L IPA, CMP #### [facility] [address] [place] [address] Dr. Medina Menchaca Anion gap [Moles/Vol] 9.0 mmol/L Normal [facility] Comment on above: Performed By: #### L IPA, CMP #### [facility] [address] [address] [address] Medina Menchaca AST [Catalytic activity/Vol] 31 U/L Normal 15-37 [facility] Comment on above: Performed By: #### L IPA, CMP #### [facility] [address] [place] [address] Dr. Medina Menchaca Bilirubin [Mass/Vol] 0.6 mg/dL Normal 0.2-1.0 [facility] Comment on above: Performed By: #### L IPA, CMP #### [facility] [address] [place] [address] Dr. Medina Menchaca Calcium [Mass/Vol] 8.7 mg/dL Normal 8.5-10.1 [facility] Comment on above: Performed By: #### L IPA, CMP #### [facility] [address] [place] [address] Dr. Medina Menchaca Chloride [Moles/Vol] 103 mmol/L Normal 98-107 [facility] Comment on above: Performed By: #### L IPA, CMP #### [facility] [address] [place] [address] Dr. Medina Menchaca CO2 [Moles/Vol] 27.6 mmol/L Normal 21.0-32.0 [facility] Comment on above: Performed By: #### L IPA, CMP #### [facility] [address] [place] [address] Dr. Medina Menchaca Creatinine [Mass/Vol] 0.72 mg/dL Normal 0.55-1.02 [facility] Comment on above: Performed By: #### L IPA, CMP #### [facility] [address] [place] [address] Dr. Medina Menchaca EGFR-AF JAPANESE >60 Normal >=60 [facility] Comment on above: Performed By: #### L IPA, CMP #### [facility] [address] [place] [address] Dr. Medina Menchaca EGFR-NON AF JAPANESE >60 Normal >=60 [facility] Comment on above: Performed By: #### L IPA, CMP #### [facility] [address] [place] [address] Dr. Medina Menchaca Globulin (S) [Mass/Vol] 3.4 g/dL Normal T [facility] Comment on above: Performed By: #### L IPA, CMP #### [facility] [address] [place] [address] Dr. Medina Menchaca Glucose [Mass/Vol] 87 mg/dL Normal 74-106 [facility] Comment on above: Performed By: #### L IPA, CMP #### [facility] [address] [address] [address] Medina Menchaca Potassium [Moles/Vol] 3.6 mmol/L Normal 3.5-5.1 [facility] Comment on above: Performed By: #### L IPA, CMP #### [facility] [address] [place] [address] Dr. Medina Menchaca Protein [Mass/Vol] 7.1 g/dL Normal 6.4-8.2 [facility] Comment on above: Performed By: #### L IPA, CMP #### [facility] [address] [place] [address] Dr. Medina Menchaca Sodium [Moles/Vol] 136 mmol/L Normal 136-145 [facility] Comment on above: Performed By: #### L IPA, CMP #### [facility] [address] [place] [address] Dr. Medina Menchaca Urea nitrogen [Mass/Vol] 8.0 mg/dL Normal 7.0-18.0 [facility] Comment on above: Performed By: #### L IPA, CMP #### [facility] [address] [place] [address] Dr. Medina Menchaca Urea nitrogen/Creatinine [Mass ratio] 11.1 mg/mg Normal [facility] Comment on above: Performed By: #### L IPA, CMP #### [facility] [address] [place] [address] Dr. Medina Menchaca URINE MICROSCOPIC ONLYon BACTERIA TRACE Abnormal NONE SEEN [facility] Comment on above: Performed By: #### U MICRO, PREGU, ERUR #### [facility] [address] [address] [address] Medina Menchaca Bacteria identified Cx Nom (U) INDICATED Normal [facility] Comment on above: Performed By: #### U MICRO, PREGU, ERUR #### [facility] [address] [place] [address] Dr. Medina Menchaca CAST NONE SEEN Normal NONE SEEN [facility] Comment on above: Performed By: #### U MICRO, PREGU, ERUR #### [facility] [address] [place] [address] Dr. Medina Menchaca Crystals LM Nom (Urine sed) NONE SEEN Normal NONE SEEN [facility] Comment on above: Performed By: #### U MICRO, PREGU, ERUR #### [facility] [address] [place] [address] Dr. Medina Menchaca Epithelial cells LM Ql (Urine sed) RARE Normal NONE SEEN /RARE [facility] Comment on above: Performed By: #### U MICRO, PREGU, ERUR #### [facility] [address] [place] [address] Dr. Medina Menchaca MUCOUS NONE SEEN Normal NONE SEEN [facility] Comment on above: Performed By: #### U MICRO, PREGU, ERUR #### [facility] [address] [place] [address] Dr. Medina Menchaca RBC 0-2 Normal 0-2 [facility] Comment on above: Performed By: #### U MICRO, PREGU, ERUR #### [facility] [address] [place] [address] Dr. Medina Menchaca WBC 2-5 Abnormal NONE SEEN [facility] Comment on above: Performed By: #### U MICRO, PREGU, ERUR #### [facility] [address] [place] [address] Dr. Medina Menchaca Covid-19 PCR ([facility])on 09-08 SARS-CoV-2 (COVID-19) RNA TRAY+probe Ql (Unsp spec) Not detected Normal NOT DETECTED [facility] Comment on above: Result Comment: This test is not yet approved or cleared by the [place] FDA. When there are no FDA-approved or cleared tests available, and other criteria are met, FDA can make tests available under an emergency access mechanism called an Emergency Use Authorization (EUA). The EUA for this test is supported by the Human Resources Clerk of Health and Human Service's (HHS's) declaration that circumstances exist to justify the emergency use of in vitro diagnostics for the detection and/or diagnosis of the virus that causes COVID-19. This EUA will remain in effect (meaning this test can be used) for the duration of the COVID-19 declaration justifying emergency of IVDs, unless it is terminated or revoked by FDA (after which the test may no longer be used). When diagnostic testing is negative, the possibility of a false negative should be considered in the context of a patient's recent exposures and the presence of clinical signs and symptoms consistent with SARS-CoV-2. Performed By: #### [facility] #### [facility] [address] [place] [address] Dr. Medina Menchaca Vital Signs Date Time Vital Sign Value Performing Clinician Facility 07-08-2024 14:39-0500 Body height 162.56 cm [facility] 07-08-2024 14:39-0500 Body mass index (BMI) [Ratio] 38.6 kg/m2 [facility] 07-08-2024 14:39-0500 Body weight 102.17 kg [facility] 07-08-2024 14:39-0500 Diastolic blood pressure 100 mm[Hg] [facility] 07-08-2024 14:39-0500 Heart rate 87 /min [facility] 07-08-2024 14:39-0500 Respiratory rate 12 /min [facility] 07-08-2024 14:39-0500 SaO2% (BldA) [Mass fraction] 98 % [facility] 07-08-2024 14:39-0500 Systolic blood pressure 136 mm[Hg] [facility] 07-16-2022 14:00-0500 Body height 167.64 cm Krishna Hernandez Other [employer] Other 07-16-2022 14:00-0500 Body mass index (BMI) [Ratio] 36.54 kg/m2 Krishna Hernandez Other [employer] Other 07-16-2022 14:00-0500 Body weight 102.7 kg Krishna Hernandez Other [employer] Other 07-16-2022 14:00-0500 Diastolic blood pressure 86 mm[Hg] Krishna Hernandez Other [employer] Other 07-16-2022 14:00-0500 Respiratory rate 12 /min Krishna Hernandez Other [employer] Other 07-16-2022 14:00-0500 Systolic blood pressure 122 mm[Hg] Krishna Hernnadez Other [employer] Other Encounters Encounter Date Encounter Type Care Provider Facility Start: 07-26-2024 End: 07-26-2024 ambulatory JEREMY AYSHA Not Available Start: 07-26-2024 End: 07-26-2024 ambulatory JEREMY AYSHA Not Available Start: 07-08-2024 End: 07-08-2024 ambulatory [facility] Work Phone: Start: 07-08-2024 End: 07-08-2024 Patient encounter procedure [facility] Work Phone: Start: 06-30-2024 End: 06-30-2024 Emergency department patient visit KRISHNA HERNANDEZ [facility] Start: 06-25-2024 End: 06-28-2024 ambulatory KRISHNA Hudson [facility] Start: 06-23-2024 End: 06-23-2024 ambulatory [facility] Work Phone: Start: 06-23-2024 End: 06-23-2024 Patient encounter procedure [facility] Work Phone: Start: 04-28-2024 Non-patient / Non-visit [facility] Work Phone: Start: 04-26-2024 End: 04-26-2024 Emergency department patient visit KRISHNA HERNANDEZ [facility] Start: 04-18-2024 Non-patient / Non-visit [facility] Work Phone: Start: 04-14-2024 End: 04-14-2024 Patient encounter procedure [facility] Work Phone: Start: 09-17-2023 End: 09-17-2023 ambulatory JEREMY AYSHA Not Available Start: 09-09-2023 End: 09-09-2023 ambulatory JEREMY AYSHA Not Available Start: 09-02-2023 End: 09-02-2023 ambulatory JEREMY AYSHA Not Available Start: 08-31-2023 End: 08-31-2023 ambulatory Jeremy Aysha Facility:[facility] Start: 08-31-2023 End: 08-31-2023 ambulatory MD Susan Aparicio Work Phone: [facility] Work Phone: Start: 08-31-2023 End: 08-31-2023 Departed Referred MD Susan Aparicio Work Phone: [facility] Start: 08-31-2023 End: 08-31-2023 ambulatory JEREMY AYSHA Not Available Start: 01-29-2023 End: 01-29-2023 ambulatory Krishna David Other [employer] Other Start: 01-29-2023 Office outpatient vi sit 15 minutes Krishna Hernandez [facility] Start: 01-13-2023 End: 01-13-2023 ambulatory Susan Aparicio Other [employer] Other Start: 01-13-2023 Telephone encounter Susan Aparicio [facility] Start: 12-30-2022 End: 12-30-2022 ambulatory Krishna Hernandez Other [employer] Other Start: 12-30-2022 Telephone encounter Krishna [facility] Start: 08-20-2022 End: 08-20-[address] DARIO HEAD . Facility:[facility] Start: 08-19-2022 End: 08-19-2022 ambulatory Krishna Hernandez Other [employer] Other Start: 08-19-2022 Telephone encounter Krishna [facility] Start: 07-28-2022 ([facility]) [facility] Scheduled Krishna Hernandez [facility] Start: 07-28-2022 End: 07-28-2022 ambulatory Krishna Hernandez Other [employer] Other Start: 07-16-2022 End: 07-16-2022 ambulatory Krishna Hernandez Other [employer] Other Start: 07-16-2022 Office outpatient vi sit 15 minutes Krishna Hernandez [facility] Start: 03-03-2022 End: 03-04-[address] KRISHNA HERNANDEZ Facility:[facility] Start: 09-25-2021 End: 09-25-[address] SUSAN APARICIO Facility:[facility] Start: 09-04-2021 Gynecological examination abnormal Krishna Hernandez Other [employer] Other Start: 04-09-2017 End: 04-10-2017 Ambulatory DEFAULT PHYSICIAN Facility:[facility] Procedures Date Procedure Procedure Detail Performing Clinician Start: 04-14-2024 Quick Strep (POC) screening Krishna Hernandez Other screening Krishna Hernanedz Other Contraception care education Kirshna Hernandez Other Diabetes mellitus screening Krishna Hernandez Other Insertion of intraut erine contraceptive device Krishna Hernandez Other End: 05-06-2016 visit Krishna Hernandez Other Plan of Treatment Date Care Activity Detail Author Comprehensive metabo lic 2000 panel - Serum or Plasma [facility] enter Urine culture [facility] Payers Date Payer Category Payer Self-pay [id number] 2023 Unknown [id number] 1995 Unknown [id number] 2.16.84 [id number] 1995 Unknown [id number] 2.16.84 [id number] 1995 Unknown [id number] 2.16.84 [id number] 1995 Unknown [id number] 2.16. [id number] 1995 Unknown [id number] 2.16. [id number] 1995 Unknown [id number] 2.16.8 40.1.469599.3.579.2.1286 1995 Unknown [id number] 2.16.84 0.1.250980.3.579.2.1259 1995 Unknown [id number] 2.16.84 0.1.992706.3.579.2.1259 1995 Unknown [id number] 2.16.84 0.1.779099.3.579.2.1259 1995 Unknown [id number] 2.16.84 0.1.532622.3.579.2.1259 1995 Unknown [id number] 2.16.84 0.1.445786.3.579.2.9 1995 Unknown [id number] 2.16.84 0.1.917368.3.579.2.9 1959 Unknown [id number] 2.1 [id number] 1959 Unknown [id number] [facility] [id number] Unknown [id number] 2.16.8 [id number] Social History Date Type Detail Facility Sex Assigned At [employer] Other Start: 01-29-2023 End: 01-29-2023 Tobacco smoking status NHIS Smoker (finding) [facility] Start: 1995 Sex Assigned At Female F [facility] Start: 06-23-2024 End: 07-08-2024 Sex Female (finding) [facility] Evaluation note 04-14-2024 Note Date & Type Note Facility 04-14-2024 Evaluation note Diagnosis Onset Date Resolution Acute bronchitis due to other specified organisms acute April 14 9:39am Hematuria acute April 14, 2024 9:39am Nausea & vomiting acute Decembe r 2023 9:39am Hematuria acute June 23, 2024 11:30am Acute sinusitis noneactive June 23, 2024 11:30am Dysuria noneactive June 23, 2024 11:30am [facility] Work Phone: Evaluation note 04-14-2024 Note Date & Type Note Facility 04-14-2024 Evaluation note Diagnosis Onset Date Resolution Acute bronchitis due to other specified organisms acute Decemb er 2023 9:39am Hematuria acute April 14, 2024 9:39am Nausea & vomiting acute Decembe r 2023 9:39am Hematuria acute June 23, 2024 11:30am Acute sinusitis noneactive June 23, 2024 11:30am Dysuria noneactive June 23, 2024 11:30am Elevated transaminase level acute July 08 025 2:31pm Hematuria acute July 08, 2024 2:31pm Submandibular lymphadenopathy noneactive July 08 025 2:31pm Odynophagia noneactive June 2:31pm Elevated liver enzymes noneactive Fe bruary 2024 2:31pm Strep throat noneactive June 2:31pm [facility] Work Phone: Evaluation note 01-29-2023 Note Date & Type Note Facility 01-29-2023 Evaluation note Encounter Date Diagnosis Assessment Notes Jan, Acute non-recurrent maxillary sinusitis (ICD-10 - J01.00) Instructed to use Robitussin or Mucinex for cough, saline or Flonase NS for congestion, Tylenol for pain and fever. Jan, Nicotine dependence, cigarettes, uncomplicated (ICD-10 - F17.210) This patient has been encouraged to quit tobacco use immediately. They are aware of the hazards associated with tobacco use, including but not limited to respiratory infections, vascular disease and cancers. May result in prolonged coughing [employer] Other Evaluation note 08-19-2022 Note Date & Type Note Facility 08-19-2022 Evaluation note Encounter Date Diagnosis Assessment Notes Aug, Acute bronchitis due to other specified organisms (ICD-10 - J20.8) [employer] Other Evaluation note 07-28-2022 Note Date & Type Note Facility 07-28-2022 Evaluation note Encounter Date Diagnosis Assessment Notes Jul, Acute non-recurrent maxillary sinusitis (ICD-10 - J01.00) Instructed to use Robitussin or Mucinex for cough, saline or Flonase NS for congestion, Tylenol for pain and fever. [employer] Other Evaluation note 07-16-2022 Note Date & Type Note Facility 07-16-2022 Evaluation note Encounter Date Diagnosis Assessment Notes Jul, Obesity (BMI 30-39.9) (ICD-10 - E66.9) This patient has been instructed on a low-fat, high-fiber diet. They are instructed to reduce calories, portion sizes and snacks. It is recommended that they exercise for 30 minutes, 3-5 times weekly. Jul, SILVESTRE (generalized anxiety disorder) (ICD-10 - F41.1) Healthy diet, exercise and proper sleep habits Jul, Hx of major depression (ICD-10 - Z86.59) Initiate counseling for anxiety and depression [employer] Other Evaluation note Note Date & Type Note Facility Evaluation note No Information [employer] Other Evaluation note Note Date & Type Note Facility Evaluation note No assessment information [facility] Work Phone: History general Narrative - Reported Note Date & Type Note Facility History general Narrative - Reported Type Medical History Abdominal discomfort in right lower quadrant Medical History Acute left-sided low back pain with left-sided sciatica Medical History Pain, female pelvic Medical History Bronchitis Medical History Chronic depression Medical History Acute URI Medical History Contact dermatitis Medical History COVID Medical History Bruising Medical History Frequent headaches Medical History Wheezing Surgical History T&A Surgical History SECTION 2016 Surgical History SECTION 2017 Hospitalization History See past surgical hx [employer] Other Summary Purpose Family History No Family History Records FoundNo Family History Records FoundNo Family History Records FoundNo Family History Records FoundNo Family History Records Found Advance Directives No Advanced Directives Records Found Advance Directive Response Recorded Date/ Time Advance Directives No April 12:35am Advance Directive Response Recorded Date/ Time Advance Directives No April 11:35pm Chief Complaint and Reason for Visit Chief Complaint Admit Date fever, sore throat, COVID - April 9:39am Amb Documentation April 28, 2024 9:58am Headache/Sore Throat June 23, 2024 11:30am Reason for Visit Admit Date Acute bronchitis due to other specified organisms April 14, 2024 9:39am Hematuria April 14, 2024 9 :39am Nausea & vomiting April 14, 2024 9 :39am Hematuria June 23, 2024 11:30am Acute sinusitis June 23, 2024 11:30am Dysuria June 23, 2024 11:30am Additional Source Comments INFORMATION SOURCE (unrecogn ized section and content) DATE CREATED AUTHOR 11/03/2017 [facility] DATE CREATED AUTHOR AUTHOR'S ORGANIZ ATION 09/10/[address] [facility] DATE CREATED AUTHOR AUTHOR'S ORGANIZ ATION 09/05/2023 [facility] DATE CREATED AUTHOR AUTHOR'S ORGANIZ ATION 07/02/2024 [facility] DATE CREATED AUTHOR AUTHOR'S ORGANIZ ATION 07/28/2024 [facility] EPIC REASON FOR VISIT (unrecogniz ed section and content) AnxietySINUS CONGESTION, SOR E THROAT, CHEST CONGESTION,NEGATIVE COVIDstill not feeling wellrefillElectric PaperSinuses, COVID Negative- [phone] Care Teams (unrecognized sec tion and content) Team Status: Active Member Role Status Dates Susan Aparicio MD Primary Care Provider Active Team Status: Inactive Member Role Status Dates Susan Aparicio MD Primary Care Provider Active Start: August 31, 2023 End: August 31, 2023 Jeremy Aysha Attending Provider Active Start: 2023 End: August 31, 2023 Team Status: Active Member Role Status Dates Krishna Hernandez DO Primary Care Provider Active Team Status: Inactive Member Role Status Dates Susan Aparicio MD Primary Care Provider Active Start: April 14, 2024 End: April 14, 2024 Krishna Hernandez DO Attending Provider Active Sta rt: April 14, 2024 End: April 14, 2024 Team Status: Active Member Role Status Dates Krishna Hernandez DO Primary Care Provide r, Attending Provider Active Start: April 18, 2024 Team Status: Active Member Role Status Dates Krishna Hernandez DO Primary Care Provider Active Start: April 28, 2024 Hemalatha Martinez CMA Attending Provider Active Start: April 28, 2024 Team Status: Inactive Member Role Status Dates Krishna Hernandez DO Primary Care Provide r, Attending Provider Active Start: June 23, 2024 End: June 23, 2024 Team Status: Inactive Member Role Status Zulma Hernandez DO Primary Care Provide r, Attending Provider Active Start: July 08, 2024 End: July 08, 2024 Goals (unrecognized section and content) Goals may be documented in a n alternate section FOR RECORDS PERTAINING TO PATIENTS WHO ARE OR HAVE BEEN ENROLLED IN A CHEMICAL DEPENDENCY/SUBSTANCEABUSE PROGRAM, SOME INFORMATION MAY BE OMITTED. This clinical summary was aggregated from multiple sources. Caution should be exercised in using it in the provision of clinical care. This summary normalizes information from multiple sources, and as a consequence, information in this document may materially change the coding, format and clinical context of patient data. In addition, data may be omitted in some cases. CLINICAL DECISIONS SHOULD BE BASED ON THE PRIMARY CLINICAL RECORDS. [employer] provides no warranty or guarantee of the accuracy or completeness of information in this document.
== END 2024-08-08 11:02 | disposition home or self-care (01) ==
LOC: PST 11:01
PROVIDERS: PCP Internal Medicine; Visit Provider Obstetrics & Gynecology
DX: Z01.818 Encounter for other preprocedural examination (principal)

== ENCOUNTER 2024-08-08 11:30 | Outpatient (OUT) | payer BC, SELFPAY ==
[2024-08-08 11:45] LABS: Basophils Percent Auto 0.2 % (0.2-2.0); Eosinophils Absolute Auto 0.1 10^3/uL (0.0-0.7); Eosinophils Percent Auto 2.1 % (0.9-7.0); Hematocrit 40.3 % (36.0-48.0); Hemoglobin 13.7 g/dL (12.0-16.0); Immature Granulocytes Abs Auto 0.01 10^3/uL (0.00-0.03); Immature Granulocytes Pct Auto 0.2 % (0.0-0.5); Lymphocytes Absolute Auto 1.8 10^3/uL (1.2-3.8); Lymphocytes Percent Auto 40.5 % (20.5-60.0); Mean Corpuscular Hemoglobin 30.1 pg (26.7-34.0); Mean Corpuscular Volume 88.6 fL (81.0-99.0); Mean Platelet Volume 9.5 fL (9.5-13.5); Monocytes Absolute Auto 0.4 10^3/uL (0.3-0.8); Neutrophils Absolute Auto 2.1 10^3/uL (1.4-6.5); Platelet Count 286 10^3/uL (150-450); Red Blood Count 4.55 10^6/uL (4.20-5.40); Red Cell Distribution Width 12.3 % (11.0-15.0); White Blood Count 4.4 10^3/uL (4.0-11.0)
[2024-08-08 11:55] LABS: Bilirubin Urine NEGATIVE (NEGATIVE); Blood Urine NEGATIVE (NEGATIVE); Clarity Urine CLEAR (CLEAR); Color Urine YELLOW (YELLOW); Glucose Urine UA NEGATIVE (NEGATIVE); Ketones Urine NEGATIVE (NEGATIVE); Leukocyte Esterase Urine NEGATIVE (NEGATIVE); Nitrite Urine NEGATIVE (NEGATIVE); Protein Urine NEGATIVE (NEG/TRACE); Specific Gravity Urine <=1.005 (1.005-1.025); Urobilinogen Urine 0.2 EU/dL (0.2-1.0)
[2024-08-08 12:07] LABS: Alanine Aminotransferase 33 U/L (14-59); Albumin Globulin Ratio 1.2; Albumin Level 3.7 g/dL (3.4-5.0); Alkaline Phosphatase 78 U/L (46-116); Anion Gap 12.7; Aspartate Amino Transferase 17 U/L (15-37); BUN Creatinine Ratio 10.5; Bilirubin Total 0.5 mg/dL (0.2-1.0); Calcium 9.1 mg/dL (8.5-10.1); Carbon Dioxide 27.4 mmol/L (21.0-32.0); Chloride 105 mmol/L (98-107); Estimated GFR (African America >60 (>=60 mL/min/1.73m^2); Estimated GFR (Non-African Ame >60 (>=60 mL/min/1.73m^2); Glucose 79 mg/dL (74-106); Potassium 4.1 mmol/L (3.5-5.1); Sodium 141 mmol/L (136-145); Total Protein 6.7 g/dL (6.4-8.2)
[2024-08-08 12:12] LABS: Bacteria Urine TRACE #/HPF (NONE SEEN); Cast Seen? NONE SEEN #/LPF (NONE SEEN); Crystals Seen? None Seen #/HPF (None Seen); Mucus Urine NONE SEEN (NONE SEEN); RBC Urine 0-2 #/HPF (0-2); Squamous Epithelial Cell Urine RARE #/LPF (NONE/RARE); Urine Culture Indicated ALREADY ORDERED; WBC Urine NONE SEEN #/HPF (NONE SEEN)
== END 2024-08-08 11:31 | disposition home or self-care (01) ==
LOC: LAB 11:30
PROVIDERS: PCP Internal Medicine; Visit Provider Internal Medicine
DX: R31.0 Gross hematuria (principal); R74.01 Elevation of levels of liver transaminase levels
CPT/HCPCS: 80053; 81001; 85025; 87086; 87106

== ENCOUNTER 2024-08-12 07:26 | Day surgery (SDC) | payer BC, SELFPAY ==
[2024-08-08 11:23] VITALS: BP 127/83; PULSE 82; TEMP 36.3; O2SAT 98; BMI 37.1
[2024-08-12 07:36] LABS: Basophils Percent Auto 0.4 % (0.2-2.0); Eosinophils Absolute Auto 0.1 10^3/uL (0.0-0.7); Eosinophils Percent Auto 2.4 % (0.9-7.0); Hematocrit 40.5 % (36.0-48.0); Hemoglobin 13.7 g/dL (12.0-16.0); Immature Granulocytes Abs Auto 0.02 10^3/uL (0.00-0.03); Immature Granulocytes Pct Auto 0.4 % (0.0-0.5); Lymphocytes Absolute Auto 1.8 10^3/uL (1.2-3.8); Lymphocytes Percent Auto 39.6 % (20.5-60.0); Mean Corpuscular HGB Conc 33.8 g/dL (29.9-35.2); Mean Corpuscular Hemoglobin 30.4 pg (26.7-34.0); Mean Platelet Volume 9.4 fL (9.5-13.5); Monocytes Absolute Auto 0.4 10^3/uL (0.3-0.8); Neutrophils Absolute Auto 2.3 10^3/uL (1.4-6.5); Neutrophils Percent Auto 49.2 % (43.0-75.0); Platelet Count 297 10^3/uL (150-450); Red Cell Distribution Width 12.4 % (11.0-15.0); White Blood Count 4.6 10^3/uL (4.0-11.0)
[2024-08-12 07:51] VITALS: BP 133/74; PULSE 77; TEMP 36.9; O2SAT 97; BMI 37.1
[2024-08-12] MEDS: LACTATED RINGER'S SOLUTION 1,000 ML 50 ML IV (08:02)
[2024-08-12 08:09] LABS: HCG Quantitative <1 mIU/mL
--- NOTE | 2024-08-12 09:34 | PM.ONB ---
Brief Operative Note Date of procedure: 08/12/24 Pre-op diagnosis general: retained iud Post-op diagnosis: same as pre-op Procedure: NAME OF PROCEDURE: [ D&c hysteroscopy with myosure] PROCEDURE: The patient was taken back to the Operating Room where she was prepped and draped in normal sterile fashion after being placed under general anesthesia without difficulty. She was also placed in the dorsal lithotomy position. A weighted speculum was placed in the patient?s vagina. The anterior lip of the cervix was identified and grasped with a single tooth tenaculum. The patient?s uterus was then sounded roughly to [? 9] cm. The patient was then gently dilated using Hegar dilators. The polyp forcep was used to remove the iud, the iud apparatus was then opened and a new iud was placed without difficulty. The single tooth tenaculum was then removed from the patient's anterior lip of the cervix where excellent hemostasis was noted. All instruments were removed from the patient?s vagina. The patient tolerated the procedure well. Sponge, lap and needle counts were correct times two. The patient was taken to the Recovery Room in stable condition.Room in stable condition. Anesthesia: VERNELLA Surgeon: Jacobo Olmstead Estimated blood loss (mL): 5 Pathology: none sent Condition: stable Disposition: PACU Urinary Catheter Management Urinary Catheter Management Urethral: Cath placed during this visit: no
[2024-08-12 09:37] VITALS: BP 118/32; PULSE 85; TEMP 36.2; O2SAT 94
[2024-08-12 09:52] VITALS: BP 124/8; PULSE 81; O2SAT 94
[2024-08-12 10:07] VITALS: BP 132/83; PULSE 67; TEMP 36.2; O2SAT 98
[2024-08-12 10:22] VITALS: BP 134/80; PULSE 68; O2SAT 100
[2024-08-12 10:50] VITALS: BP 148/98; PULSE 61; TEMP 36.2; O2SAT 100
== END 2024-08-12 10:50 | disposition home or self-care (01) ==
PROVIDERS: PCP Internal Medicine; Visit Provider Obstetrics & Gynecology
PROC: (CPT 940; principal; 2024-08-12 08:40)
DX: Z30.433 Encounter for removal and reinsertion of intrauterine contraceptive device (principal); T83.39XA Other mechanical complication of intrauterine contraceptive device, initial encounter; R10.2 Pelvic and perineal pain; F17.210 Nicotine dependence, cigarettes, uncomplicated
CPT/HCPCS: 58300; 58301; 36415; 84702; 85025; J1885; J2250; J2704; J3010

== ENCOUNTER 2024-12-07 12:28 | Outpatient (REF) | payer BC, SELFPAY ==
--- OUTSIDE RECORDS SUMMARY | 2024-12-02 11:02 | XMS_ITS | Continuity of Care Document ---
Demographics Address [address] [place] [address] Phone Preferred Language Romansh Marital Status Unknown Mandaen Affiliation Unknown Race White Ethnic Group Not or Lati no Author Organization [facility] Address [address] [place] [address] Phone Care Team Providers Care Kersey Department Supervisor Name Role Phone Krishna Hernandez DO Primary Care Provider [phone] Krishna Hernandez DO Attending Provider Care Teams Patient Care Team Team Status: Active Member Role Status Dates Krishna Hernandez DO Primary Care Provider Active Patient Care Team Team Status: Inactive Member Role Status Dates Krishna Hernandez DO Primary Care Provider Active Start: December 02, 2024 End: December 02, 2024 Krishna Hernandez DO Attending Provider Active Sta rt: December 02, 2024 End: December 02, 2024 Chief Complaint and Reason for Visit Chief Complaint Admit Date sore throat/swollen glands December 02 2:19pm Allergies, Adverse Reactions, Alerts Allergen Type Severity Reaction Last Updated Verified Status doxycycline Allergy Unknown Unknown Reaction December 02, 2024 2:2 8pm Yes Active Social History Smoking Status Status Start Date End Date Date of Observa tion Smokes tobacco daily (finding) January 29, 2023 9:11am Observation Status Observation Response Date of Response Legal Sex Female (finding) Sex Assigned At Female 1995 Problems Active Problems Medical Problem Onset Date Status Comments Elevated transaminase level Unknown Active Hematuria Unknown Active Elevated BP without diagnosis of hypertension Unknown Active Acute bronchitis due to other specified organisms Unkn own Active Nausea & vomiting Unknown Active Obesity Unknown Active Inactive/Resolved Problems Medical Problem Onset Date Status Comments Lab test positive for detect ion of COVID-19 virus Unknown Resolved Problem List clean-u p per request of Phys. EHR Cmte Major depressive disorder, recurrent Unknown Resolved Problem List clean-u p per request of Phys. EHR Cmte Suicidal ideation Unknown Resolved Problem Li st clean-up per request of Phys. EHR Cmte Migraines Unknown Resolved Problem List cl bert-up per request of Phys. EHR Cmte Medications Medication Status Dose Units Route Directions Qty Days St art Date Stop Date End Date Instructions Adherence Citalopram 40 mg tablet Discont inued 40 MG PO Every morning October 07, 2024 10:06a m November 08, 2024 12:53 pm Citalopram 40 mg tablet Active 40 MG PO Daily November 08, 2024 12:53p m Complies with drug therapy Nicotine (Polacrilex ) 2 mg Gum Discont inued 2 MG BUCCAL Q2H as needed for Nicotine Cravings 60 [facility] er 2019 1:00am [facility] cris 2023 10:54 am Citalopram 20 mg Tablet Discont inued 20 MG PO Every morning [facility] er 2019 1:00am [facility] cris 2023 10:54 am Melatonin 5 mg Tablet Discont inued 5 MG PO Daily at bedtime as needed for Insomnia 30 [facility] er 2019 1:00am [facility] cris 2023 10:54 am Cefdinir 300 mg capsule Discont inued 300 MG PO Twice daily 10 [facility] er 2023 1:00am Febru guzman 2024 3:36p m Ondansetron 4 mg tablet,disi ntegrating Discont inued 4 MG PO Every 8 hours as needed for nausea and vomiting 3 [facility] er 2023 1:00am Febru guzman 2024 3:36p m Amoxicillin 875 mg tablet Discont inued 875 MG PO Twice daily 2024 1:00am Febru guzman2024 3:41p m Citalopram 20 mg tablet Discont inued 20 MG PO Every morning September 21, 2024 3:58pm October 07, 2024 10:06 am Vital Signs Vital Reading Result Reference Range Collection Date/Time Height 64 [in_i] December 02, 2024 2:31pm Weight 104.43 kg December 02, 2024 2:31pm Heart Rate 88 /min 60-100 December 02, 2024 2:31pm Respiratory rate 12 /min 12-24 December 02, 2024 2:31pm BP Systolic 127 mm[Hg] 100-140 December 02, 2024 2:31pm BP Diastolic 84 mm[Hg] 60-100 December 02, 2024 2:31pm BMI (Body Mass Index) 39.5 kg/m2 November 092024 2:31pm Advance Directives Advance Directive Response Recorded Date/ Time Advance Directives No April 12:35am Insurance Providers Guarantor Adrienne Omer Migue Address [address] [place] [id number] Contact Info. Home Phone: Payer Policy Id Subscriber's Name Subscriber Id Effective Date Expiration Date [place] RAMIREZ/ISLEA [id number] Adrienne Omer Migue [id number] [facility] Medicaid [id number] Adrienne Camarena [id number] [employer] [id number] Adrienne Camarena [id number] Encounters Encounter Location(s) Arrival/Admit Date Discharge/Depart Date Provider(s) Departed Physician/Prov ider Office Visit -[facility] December 02, 2024 2:19pm December 02, 2024 3:00pm Krishna Hernandez DO
--- OUTSIDE RECORDS SUMMARY | 2024-12-07 12:34 | XMS_ITS | Clinical Summary ---
Author Organization [employer] Address [id number] [address] [place] [address] Care Team Providers Care Interior Decorator Paperhanging Name Role Phone Krishna Hernandez Primary Care Provider [phone] Allergies Active Allergy Reactions Criticality Noted Date Comments Doxycycline 04/26/2024 Medications levonorgestrel (MIRENA) 20 mcg/24 hours (5 yrs) 52 mg IUD 1 each by intrauterine route once. Active ibuprofen (MOTRIN) 800 mg tablet Take 1 tablet (800 mg total) by mouth every 8 (eight) hours as needed for pain. 30 tablet Active Active Problems Problem Noted Date Diagnosed Date Strep throat 06/26/2024 Submandibular lymphadenopathy 06/26/2024 Status migrainosus 03/21/2017 Hypertension 07/17/2016 Family History Medical History Relation Name Comments No Known Problems Father Hypertension Mother Migraines Mother Breast cancer Paternal Grandmother Hypertension Sister Relation Name Status Comments Father Mother Paternal Grandmother Sister Social History Tobacco Use Types Packs/Day Years Used Date Smoking Tobacco: Every Day Cigarettes Smokeless Tobacco: Never Tobacco Cessation:Ready to Q uit: Not Asked; Counseling Given: Not Answered Alcohol Use Standard Drinks/Week Comments Yes 0 (1 standard drink = 0.6 oz pur e alcohol) occasionally [facility] Utilities Answer Date Recorded In the past 12 months has th e electric, gas, oil, or water company threatened to shut off services in your home? No 06/26/2024 PRAPARE - Transportation Answer Date Re corded In the past 12 months, has l ack of transportation kept you from medical appointments or from getting medications? No 06/11 In the past 12 months, has l ack of transportation kept you from meetings, work, or from getting things needed for daily living? No 06/26/2024 Housing Instability Answer Date Recorde d Are you worried or concerned that in the next two months you may not have stable housing that you own, rent or stay in as a part of a household? No 06/26/2024 Childcare Answer Date Recorded Childcare Unknown 10/20/2018 Employment Answer Date Recorded Employment Unknown 10/20/2018 Hunger Screening Answer Date Recorded Within the past 12 months we worried whether our food would run out before we got money to buy more. Never True 06/30/2024 Within the past 12 months th e food we bought just didn't last and we didn't have money to get more. Never True 06/30/2024 Purpose - Life Answer Date Recorded Purpose and direction in life Unknown Comments No Sex and Gender Information Value Date Recorded Sex Assigned at Not on file Legal Sex Female 12:08 PM EST Gender Identity Not on file Sexual Orientation Not on file Last Filed Vital Signs Vital Sign Reading Time Taken Comments Blood Pressure 138/99 06/30/2024 10:59 AM EST Pulse 59 06/30/2024 10:58 AM EST Temperature 36.7 C (98.1 F) 06/30/2024 10:58 AM EST Respiratory Rate 16 06/30/2024 10:58 AM EST Oxygen Saturation 99% 06/30/2024 10:58 AM EST Inhaled Oxygen Concentration - - Weight 104.8 kg (231 lb) 06/30/2024 10:58 AM EST Height 165.1 cm (5' 5 ) 06/30/2024 10:58 AM EST Body Mass Index 38.44 06/30/2024 10:58 AM EST Plan of Treatment Health Maintenance Due Date Last Done Comments Tobacco Counseling 1995 Depression Screening 2007 Adult BMI Follow Up Plan 2013 DTaP,Tdap and Td Vaccines (1 - Tdap) 2014 Pap Smear 01/12/2016 Influenza Vaccine 01/09/2025 Adult BMI Screening 06/30/2025 06/30/2024 Tobacco Screening 06/30/2025 06/30/2024 Goals Goal Patient Goal Type Associated Problems Recent Progress Patient-Stated? Author Home with self care General Yes Riddhi Butler, ANTWON Note: Evaluation of progress towards goal: Patient plans to return home with self care. Medical Devices Not on file Insurance [facility] MEDICAID Advance Directives * Full Code (Latest Code Status on File) Date Activated Date Inactivated Comments 06/26/2024 12:22 AM 06/28/2024 4:31 PM * Full Code Date Activated Date Inactivated Comments 03/21/2017 4:16 AM 03/23/2017 8:13 PM Care Teams Interior Decorator Paperhanging Relationship Specialty Start Date End Date Krishna Hernandez DO [address] [place] [address] PCP - General 06/30/24
--- OUTSIDE RECORDS SUMMARY | 2024-12-07 12:34 | XMS_ITS | Clinical Summary ---
Author Organization [facility] Address [address] [place] [address] Care Team Providers Care Medical Technical Writer Name Role Phone Krishna Hernandez Primary Care Provider [phone] Allergies Active Allergy Reactions Criticality Noted Date Comments Doxycycline GI intolerance 09/17/2023 Medications Levonorgestrel (Mirena, 52 MG,) 20 MCG/DAY intrauterine device 52 mg by Intrauterine route continuously IUD was placed during recent surgery on 08/12/2024 [facility]: 74994-973-47 Lot# [id number] Expiration: 09/2026 5 Active ibuprofen 800 MG tablet Take 800 mg by mouth every 8 (eight) hours if needed 5 Active Hospital, Clinic, or Other Facility Administered Medication Ordered Dose Route Frequency Start Date End Date Status Levonorgestrel intrauterine device 52 mgIndications:Encounter for IUD insertion 52 mg IU Continuous 07/26/2024 07/25/2029 Active Social History Tobacco Use Types Packs/Day Years Used Date Smoking Tobacco: Never Assessed Comments No Sex and Gender Information Value Date Recorded Sex Assigned at Female 08/28/2023 5:09 PM EDT Legal Sex Female 11:47 PM EDT Gender Identity Female 08/28/2023 5:09 PM EDT Sexual Orientation Straight 08/28/2023 5: 09 PM EDT Last Filed Vital Signs Vital Sign Reading Time Taken Comments Blood Pressure 116/70 07/26/2024 1:58 PM EDT Pulse - - Temperature - - Respiratory Rate - - Oxygen Saturation - - Inhaled Oxygen Concentration - - Weight 101 kg (223 lb 1.9 oz) 07/26/2024 1:58 PM EDT Height - - Body Mass Index - - Plan of Treatment Not on file Insurance BCBS Care Teams Medical Technical Writer Relationship Specialty Start Date End Date Krishna Hernandez DO PCP - General Internal Medicine 08/10/23
--- OUTSIDE RECORDS SUMMARY | 2024-12-07 12:34 | XMS_ITS | Encounter Summary ---
Author Organization [facility] Address [address] [place] [address] Care Team Providers Care Wash Mill Operator Name Role Phone Krishna Hernandez DO Primary Care Provider [phone] Encounter Details Date Type Department Care Team (Late st Contact Info) Description 09/04/2023 Abstract [facility] [address] [place] [address] Padma Montaño LPN [address] [facility] [address] [facility] Social History Tobacco Use Types Packs/Day Years Used Date Smoking Tobacco: Never Assessed Comments No Sex and Gender Information Value Date Recorded Sex Assigned at Female 08/28/2023 5:09 PM EDT Legal Sex Female 11:47 PM EDT Gender Identity Female 08/28/2023 5:09 PM EDT Sexual Orientation Straight 08/28/2023 5: 09 PM EDT documented as of this encounter Plan of Treatment Not on file documented as of this encounter Visit Diagnoses Not on filedocumented in this encounter Care Teams Wash Mill Operator Relationship Specialty Start Date End Date Krishna Hernandez DO PCP - General Internal Medicine 08/10/23 documented as of this encounter
[2024-12-07 12:56] LABS: Glucose Urine UA NEGATIVE (NEGATIVE)
[2024-12-07 13:07] LABS: Cast Seen? NONE SEEN #/LPF (NONE SEEN); Crystals Seen? None Seen #/HPF (None Seen)
== END 2024-12-07 12:29 | disposition home or self-care (01) ==
LOC: LAB 12:28
PROVIDERS: PCP Internal Medicine; Visit Provider Internal Medicine
DX: R31.0 Gross hematuria (principal)
CPT/HCPCS: 81001; 87086

== ENCOUNTER 2024-12-21 08:50 | Outpatient (OUT) | payer BC, SELFPAY ==
--- OUTSIDE RECORDS SUMMARY | 2024-12-07 20:28 | XMS_ITS | Continuity of Care Document ---
Demographics Address [address] [place] [address] Phone Preferred Language Belarusian Marital Status Unknown Buddhist Affiliation Unknown Race White Ethnic Group Not or Lati no Author Organization [facility] Address [address] [place] [address] Phone Care Team Providers Care Automotive Technician Name Role Phone David Krishna MEHTA Primary Care Provider [phone] Krishna Hernandez DO Attending Provider Care Teams Visit Care Team Team Status: Inactive Member Role Status Dates Krishna Hernandez DO Primary Care Provider Active Start: December 02, 2024 End: December 02, 2024 Krishna Hernandez DO Attending Provider Active Sta rt: December 02, 2024 End: December 02, 2024 Visit Care Team Team Status: Active Member Role Status Dates Krishna Hernandez DO Primary Care Provider Active Start: December 07, 2024 Krishna Hernandez DO Attending Provider Active Sta rt: December 07, 2024 Chief Complaint and Reason for Visit Chief Complaint Admit Date sore throat/swollen glands December 02 2:19pm Reason for Visit Admit Date Acute bronchitis due to other specified organisms December 02, 2024 2:19pm Fatigue December 02, 2024 2:19 pm Cough December 02, 2024 2:19 pm Allergies, Adverse Reactions, Alerts Allergen Type Severity [...] PO Daily November 08, 2024 12:53p m Unknown Nicotine (Polacrilex ) 2 mg Gum Discont inued 2 MG BUCCAL Q2H as needed for Nicotine Cravings 60 Dece er 2019 1:00am Dece cris 2023 10:54 am Citalopram 20 mg Tablet Discont inued 20 MG PO Every morning Dece er 2019 1:00am [facility] cris 2023 10:54 am Melatonin 5 mg Tablet Discont inued 5 MG PO Daily at bedtime as needed for Insomnia 30 Dece er 2019 1:00am [facility] cris 2023 10:54 am Cefdinir 300 mg capsule Discont inued 300 MG PO Twice daily 10 5 Dece er 2023 1:00am Febru [email or web address] 3:36p m Ondansetron 4 mg tablet,disi ntegrating Discont inued 4 MG PO Every 8 hours as needed for nausea and vomiting 10 3 Dece er 2023 1:00am Febru guzman 2024 3:36p m Amoxicillin 875 mg tablet Discont inued 875 MG PO Twice daily 20 2024 1:00am Febru [email or web address] 3:41p m Citalopram 20 mg tablet Discont inued 20 MG PO Every morning 30 September 21, 2024 3:58pm October 07, 2024 10:06 am Amoxicillin 875 mg tablet Active 875 MG PO Twice daily 14 December 02, 2024 12:00a m Unknown Prednisone 20 mg tablet Active 20 MG PO As Directed 9 6 December 02, 2024 12:00a m 1 tab bid w/ food x 3 days, then qd w/ food x 3 days Unknown Relevant Diagnostic Tests and/or Laboratory Data Laboratory Results Test Collection Date/Time Result Date/Time Result Interpretation Reference Range Result Comment Performing Site Urine Other Casts December 07, 2024 12:35pm NONE SEEN #/LPF NONE SEEN Urine Other Crystals December 07, 2024 12:35pm None Seen #/HPF None Seen Urine Bacteria December 07, 2024 12:35pm TRACE #/HPF Abnormal (applies to non-numeric results) NONE SEEN Urine Bilirubin December 07, 2024 12:35pm NEGATIVE NEGATIVE Urine Occult Blood December 07, 2024 12:35pm MODERATE Abnormal (applies to non-numeric results) NEGATIVE Urine Appearance December 07, 2024 12:35pm CLEAR CLEAR Urine Color December 07, 2024 12:35pm LT. YELLOW YELLOW Urine Glucose (UA) December 07, 2024 12:35pm NEGATIVE mg/dL NEGATIVE Urine Ketones December 07, 2024 12:35pm NEGATIVE mg/dL NEGATIVE Urine Leukocyte Esterase December 07, 2024 12:35pm SMALL Abnormal (applies to non-numeric results) NEGATIVE Urine Mucus December 07, 2024 12:35pm NONE SEEN NONE SEEN Urine Nitrite December 07, 2024 12:35pm NEGATIVE NEGATIVE Urine pH December 07, 2024 12:35pm 6.5 5.0-9.0 Urine Protein December 07, 2024 12:35pm NEGATIVE mg/dL NEG/TRACE Urine RBC December 07, 2024 12:35pm 2-5 #/HPF Abnormal (applies to non-numeric results) 0-2 Urine Specific [place] December 07, 2024 12:35pm 1.010 1.005-1.02 5 Urine Squamous Epithelial Cells December 07, 2024 12:35pm MODERATE #/LPF Abnormal (applies to non-numeric results) NONE/RARE Urine Urobilinoge n December 07, 2024 12:35pm 0.2 EU/dL 0.2-1.0 Urine WBC December 07, 2024 12:35pm 0-2 #/HPF Abnormal (applies to non-numeric results) NONE SEEN Vital Signs Vital Reading Result Reference Range [...] No April 12:35am Insurance Providers Guarantor Adrienne Camarena Address [address] [place] [id number] Contact Info. Home Phone: Payer Policy Id Subscriber's Name Subscriber Id Effective Date Expiration Date [place] RAMIREZ/BS [id number] Adrienne Camarena [id number] [facility] Medicaid [id number] Adrienne Camarena [id number] [employer] [id number] Adrienne Camarena [id number] Encounters Encounter Location(s) Arrival/Admit Date Discharge/Depart Date Provider(s) Departed Physician/Prov ider Office [facility] December 02, 2024 2:19pm December 02, 2024 3:00pm Krishna Hernandez DO Non-patient / Non-visit -[facility] December 07, 2024 12:35pm Krishna Hernandez DO Recent Diagnosis Onset Date Admit Date Acute bronchitis due to other specified organism s Unknown December 02, 2024 2:19pm Fatigue Unknown December 02, 2024 2:19pm Cough Unknown December 02, 2024 2:19pm Assessments Diagnosis Onset Date Resolution Status Admit Date Acute bronchitis due to othe r specified organisms acute December 02, 2 025 2:19pm Fatigue noneactive December 02 2:19pm Cough noneactive December 02 2:19pm Plan of Treatment Author Krishna Hernandez [facility] Authored December 02, 2024 3:04 pm I have instructed this patie nt to use Robitussin or Mucinex for cough, saline and Flonase NS for congestion and Tylenol for pain and fever. Continue antibiotics until all the medication has been taken. Report to the ER if develop any CP or SOB Instructed to push fluids, begin Mucinex DM as needed Instructed to rest Push fluids and follow healthy diet plan Future Tests Future scheduled test information is unavailable Pending Tests Test Name Ordered Date Scheduled Date Urine Culture December 07, 2024 12:35pm Future Visits Future appointment information is unavailable Referrals to Other Providers Referral information is unavailable Future Procedures Procedure Name Ordered Date Scheduled Date Urine Culture December 07, 2024 9:27pm November 12:35pm Future Medications Future medication information is unavailable Patient Instructions Patient instructions are unavailable
--- OUTSIDE RECORDS SUMMARY | 2024-12-21 08:52 | XMS_ITS | Encounter Summary ---
Author Organization [facility] Address [address] [place] [address] Care Team Providers Care Honing Machine Try Out Setter Name Role Phone Krishna Hernandez DO Primary Care Provider [phone] Encounter Details Date Type Department Care Team (Late st Contact Info) Description 09/04/2023 Abstract [facility] [address] [place] [address] Padma Montaño LPN [address] [facility] [address] [facility] Social History Tobacco Use Types Packs/Day [...] on filedocumented in this encounter Care Teams Honing Machine Try Out Setter Relationship Specialty Start Date End Date Krishna Hernandez DO PCP - General Internal Medicine 08/10/23 documented as of this encounter
--- OUTSIDE RECORDS SUMMARY | 2024-12-21 08:52 | XMS_ITS | Clinical Summary ---
Author Organization [facility] Address [address] [place] [address] Care Team Providers Care Line Locator Name Role Phone Krishna Hernandez Primary Care Provider [phone] Allergies Active Allergy Reactions Criticality Noted Date Comments Doxycycline GI intolerance 09/17/2023 Medications Levonorgestrel (Mirena, 52 MG,) 20 MCG/DAY intrauterine device 52 mg by Intrauterine route continuously IUD was placed during recent surgery on 08/12/2024 [facility]: 76915-525-91 Lot# [id number] Expiration: 09/2026 5 Active ibuprofen 800 MG [...] Not on file Insurance BCBS Care Teams Line Locator Relationship Specialty Start Date End Date Krishna Hernandez DO PCP - General Internal Medicine 08/10/23
--- OUTSIDE RECORDS SUMMARY | 2024-12-21 08:52 | XMS_ITS | Clinical Summary ---
Author Organization [employer] Address [id number] [address] [place] [address] Care Team Providers Care Suppository Molding Machine Operator Name Role Phone Krishna Hernandez Primary Care Provider [phone] Allergies Active Allergy Reactions Criticality Noted Date [...] = 0.6 oz pur e alcohol) occasionally [facility] Utilities Answer Date Recorded In the past [...] Medical Devices Not on file Insurance [facility]THEM [facility] MEDICAID Advance Directives * Full Code (Latest Code Status on File) Date Activated Date Inactivated Comments 06/26/2024 12:22 AM 06/28/2024 4:31 PM * Full Code Date Activated Date Inactivated Comments 03/21/2017 4:16 AM 03/23/2017 8:13 PM Care Teams Suppository Molding Machine Operator Relationship Specialty Start Date End Date Krishna Hernandez DO [address] [place] [address] PCP - General 06/30/24
--- NOTE | 2024-12-21 08:57 | CT_ITS ---
The [address] [address] Patient Name: CARMEN CARRIZALES MRN: [id number] date: 1995 Sex: F Assigned Patient Location: CT Current Patient Location: CT Accession/Order Number: [id number] Exam Date: 12/21/2024 12:42 Report Date: 12/21/2024 12:46 At the request of: TAE LOTT DO Procedure: CT abdomen pelvis w con CT ABDOMEN AND PELVIS WITH INTRAVENOUS CONTRAST: CLINICAL HISTORY: Gross Hematuria COMPARISON: KUB 07/26/2024 TECHNIQUE: Spiral images were obtained through the abdomen and pelvis following the administration of intravenous contrast. This CT exam was performed using one or more following dose reduction techniques: Automated exposure control, adjustment of the mA and/or kV according to patient size, or use of iterative reconstruction technique. FINDINGS: Lung Bases: [No acute process.] Organs:Liver gallbladder portal vein spleen pancreas adrenal glands kidneys and aorta all appear unremarkable.[ GI: Stomach is grossly unremarkable. Small bowel appears nondilated. Appendix is normal. No acute colonic abnormality.[ Pelvis:[IUD is in place. Follicular changes involving the ovaries. Urinary bladder is grossly unremarkable.] Peritoneum/Retroperitoneum:No free air free fluid or lymphadenopathy.[ Abd wall/Bones:Abdominal wall demonstrate no acute findings. Osseous structures demonstrate degenerative change.[ CT/CT abdomen pelvis w con IMPRESSION: No acute findings. Impression dictated by: Josh Rodriguez Jr., D.O. 12/21/2024 12:46 PM Dictation Location: [place] [address] Electronically authenticated by: [id number] Y Date: 12/21/2024 12:46
--- OUTSIDE RECORDS SUMMARY | 2024-12-21 08:58 | XMS_ITS | CCD ---
Author Organization [facility] Care Team Providers Care Customer Support Agent Name Role Phone PHYSICIAN, DEFAULT Unavailable Unavailable PHYSICIAN, DEFAULT Unavailable Unavailable Krishna Hernandez Unavailable DR KRISHNA HERNANDEZ Primary Care Unavailable MARIBELL ., MANUELITO Admitting Unavailable PEPE ., AALIYAH STAUFFER Consulting Unavailkemi REYNA ., MANUELITO Attending Unavailable ROGELIO FUCHS Consulting Unavailable MARIBELL ., MANUELITO Consulting Unavailable SOINDO ., DR BISHOP Attending Unavailabl e SONIDO ., DR BISHOP Consulting Unavailkemi e SONIDO ., DR BISHOP Admitting Unavailekmi HERNANDEZ, DR STRONG Primary Care Unavailable MARKUS, DR SUSAN Hudson Admitting Unavailable MARKUS, DR SUSAN Hudson Attending Unavailable MARKUS, DR SUSAN Hudson Consulting Unavailable Susan Aparicio Unavailable MD Susan Aparicio Primary Care Provider Jeremy Olmstead Attending Provider KRISHNA HERNANDEZ Primary Care Unavailable KRISHNA HERNANDEZ Primary Care Unavailable ROLO ESTES Admitting Unavailable PRATEEK PONCE Attending Unavailable KRISHNA HERNANDEZ Primary Care Unavailable ROSA KNOWLES Attending Unavailable JEREMY OLMSTEAD Attending Unavailable JEREMY OLMSTEAD Referring Unavailable JEREMY OLMSTEAD Attending Unavailable JEREMY OLMSTEAD Attending Unavailable JEREMY OLMSTEAD Attending Unavailable JEREMY OLMSTEAD Attending Unavailable Krishna Hernandez MD Primary Care Provider Krishna Hernandez DO Attending Provider Krishna Hernandez DO Primary Care Provider Krishna Hernandez DO Attending Provider [phone] Krishna Hernandez Attending Unavailable Krishna Hernandez Admitting Unavailable Krishna Hernandez Attending Unavailable Krishna Hernandez Admitting Unavailable Allergies Allergy Classification Reported Allergen(s) Allergy Type Date of Onset Reaction(s) Facility (4 sources) Doxycycline; Translations: [DOXYCYCLINE] Drug Allergy GI intolerance [facility] Medications Current Medications Medication Drug Class(es) Dates Sig (Normalized) Sig (Original) [id number] 200 actuat albuterol 0.09 mg/actuat metered dose [...] every 4 hrs Active amoxicillin 875 mg oral tablet (12 sources) Penicillin-class Antibacterial Start: 12-02-2024 take 1 tablet by mouth twice daily Start: 06-23-2024 End: 07-08-2024 take 1 tablet by mouth twice daily Amoxicillin 875 mg tablet Discontinued 875 MG PO Twice daily 27 02June 23, 2024 1:00am July 08, 2024 3:41pm Start: 06-02-2022 take [address] [facility] every eight hours Amoxicillin 500 MG 1 capsule Orally every 8 hrs for 7 days May, Active amoxicillin 875 mg / clavulanate 125 mg oral tablet (4 sources) Penicillin-class Antibacterial Start: 08-19-2022 take 1 tablet by mouth every twelve hours Amoxicillin-Pot Clavulanate 875-125 MG 1 tablet Orally every 12 hrs for 7 days Aug, Active azithromycin 250 mg oral tablet (7 sources) Macrolide Antimicrobial Start: 07-28-2022 Azithromycin 250 MG as directed Orally daily for 5 days Jan, Active citalopram 40 mg oral tablet (12 sources) Serotonin Reuptake Inhibitor Start: 10-07-2024 End: 11-08-2024 take 1 tablet by mouth once daily Start: 09-21-2024 End: 10-07-2024 take 1 tablet by mouth once daily in the morning Citalopram 20 mg tablet Discontinued 20 MG PO Every morning September 21, 2024 3:58pm October 07, 2024 10:06am Start: 05-02-2020 End: 04-14-2024 take 1 tablet by mouth once daily in the morning Citalopram 20 mg Tablet Discontinued 20 MG PO Every morning May 02, 2020 1:00am April 14, 2024 10:54am escitalopram 10 mg oral tablet (6 sources) Serotonin Reuptake Inhibitor Start: 07-16-2022 take 1 tablet by mouth every twenty-four hours Escitalopram Oxalate 10 MG 1 tablet Orally Once a day for 30 days Jul, Active ibuprofen 800 mg oral tablet (2 sources) Nonsteroidal Anti-inflammatory Drug Start: 06-25-2024 take 1 tablet by mouth every eight hours as needed ibuprofen 800 MG tablet Take 800 mg by mouth every 8 (eight) hours if needed 06/25/2024 Active levonorgestrel 0.284235 mg/hr intrauterine system (10 sources) Progestin, Progestin-contain ing Intrauterine Device Start: 07-26-2024 End: 07-25-2029 Levonorgestrel intrauterine device 52 mg Levonorgestrel ( Mirena, 52 MG,) 20 MCG/DAY intrauterine device Mirena Active Mirena Active nitrofurantoin, macrocrystals 25 mg / nitrofurantoin, monohydrate 75 mg oral capsule (6 sources) Nitrofuran Antibacterial take 1 capsule by mouth every twelve hours [place] (No Known Home Meds) (3 sources) Start: 07-08-19 [place] (No Known Home Meds) Active July 08, 2024 1:00am Start: 07-08-2024 [place] (No own Home Meds) Active July 08, 2024 12:00am Start: 04-30-2020 [place] (No own Home Meds) Active April 30, 2020 1:00am omeprazole 40 mg delayed release oral capsule (3 sources) Proton Pump Inhibitor Start: 08-26-2022 Omeprazole 40 MG 1 capsule Orally Once a day, taken on empty stomach, followed in 30 minutes by bkfst for 30 days Aug, Active phenazopyridine hydrochloride 200 mg oral tablet (6 sources) take 1 tablet by mouth every eight hours predniSONE 20 mg oral tablet (1 source) Start: 12-02-2024 Completed/Discontinued Medications Medication Drug Class(es) Dates Sig (Normalized) Sig (Original) cefdinir 300 mg oral capsule (5 sources) Cephalosporin Antibacterial Start: 04-14-2024 End: 07-08-2024 take 1 capsule by mouth twice daily Cefdinir 300 mg capsule Discontinued 300 MG PO Twice daily 10 April 14, 2024 1:00am July 08, 2024 3:36pm melatonin 5 mg oral tablet (6 sources) Start: 05-02-2020 End: 04-14-2024 take 1 tablet by mouth once daily at bedtime as needed Melatonin 5 mg Tablet Discontinued 5 MG PO Daily at bedtime as needed for Insomnia May 02, 2020 1:00am April 14, 2024 10:54am nicotine 2 mg chewing gum (6 sources) Cholinergic Nicotinic Agonist Start: 05-02-2020 End: 04-14-2024 Nicotine (Polacrilex) 2 mg Gum Discontinued 2 MG BUCCAL Q2H as needed for Nicotine Cravings 60 May 02, 2020 1:00am April 14, 2024 10:54am ondansetron 4 mg disintegrating oral tablet (5 sources) Serotonin-3 Receptor Antagonist Start: 04-14-2024 End: 07-08-2024 take 1 tablet by mouth every eight hours as needed for nausea and vomiting Ondansetron 4 mg tablet,disintegra ting Discontinued 4 MG PO Every 8 hours as needed for nausea and vomiting 10 April 14, 2024 1:00am July 08, 2024 3:36pm Problems Active Problems Problem Classification Problem Date Documented Da te Episodic/Chronic Abdominal pain (20 sources) Pelvic and perineal pain; Translations: [Pelvic and perineal pain] Onset: 4 Episodic Acute bronchitis (12 sources) Acute bronchitis due to other specified [...] or chronic] Episodic Contraceptive and procreative management (7 sources) Presence of (intrauterine) contraceptive device; Translations: [Surveillance of intrauterine device contraception] Onset: 2 07-26-2024 Episodic Esophageal disorders (6 sources) Gastroesophageal reflux disease without esophagitis; Translations: [Gastro-esophageal reflux disease without esophagitis] Chronic Esophageal disorders (3 sources) Esophageal disorders; Translations: [Gastro-esophageal reflux disease with esophagitis, without bleeding] Onset: 8 Genitourinary symptoms and ill-defined conditions (18 sources) Genitourinary symptoms; Translations: [Unspecified symptoms and signs involving the genitourinary system] 04-14-2024 Episodic Headache; including migraine (12 sources) Refractory migraine with aura; Translations: [Migraine [...] proteinuria, third trimester] Resolved: 8 Episodic Lymphadenitis (3 sources) Localized enlarged lymph nodes; Translations: [Enlargement of lymph nodes] Onset: 5 07-08-2024 Episodic Malaise and fatigue (1 source) Fatigue; Translations: [Other fatigue] 12-02-2024 Episodic Menstrual disorders (3 sources) Amenorrhea; Translations: [Amenorrhea, unspecified] Onset: 4 Chronic Mood disorders (13 sources) Chronic depression; Translations: [Major depressive disorder, single episode, unspecified] 04-22-2023 Chronic Comment on above: Problem List clean-u p per request of Phys. EHR Cmte Nausea and vomiting (7 sources) Nausea and vomiting; Translations: [Nausea with vomiting, unspecified] 04-14-2024 Episodic Nonspecific chest pain (4 sources) Chest pain; Translations: [Other chest pain] Onset: 8 Episodic Other circulatory disease (6 sources) Elevated blood-pressure reading without diagnosis of hypertension; Translations: [Elevated blood-pressure reading, without diagnosis of hypertension] 07-08-2024 Episodic Other circulatory disease (1 source) Elevated blood-pressure reading, without diagnosis of hypertension; Translations: [Elevated blood pressure reading without diagnosis of hypertension] 07-08-2024 Episodic Other complications of (6 sources) High [...] applicable or unspecified] Episodic Other gastrointestinal disorders (2 sources) Dysphagia, unspecified; Translations: [Dysphagia, unspecified] 07-08-2024 Episodic Other injuries and conditions due to external causes (4 sources) Other injury of unspecified body region, initial encounter; Translations: [Bruising] Episodic Other injuries and conditions due to external causes (3 sources) Traumatic AND/OR non-traumatic injury; Translations: [Other injury of unspecified body region, initial encounter] Episodic Other liver diseases (6 sources) Enzyme level - finding; Translations: [Transaminasemia] 07-08-2024 Episodic Other liver diseases (1 source) Abnormal levels of other serum enzymes; Translations: [Other nonspecific abnormal serum enzyme levels] 07-08-2024 Episodic Other lower respiratory disease (4 sources) Wheezing; Translations: [Wheezing] Episodic Other lower respiratory disease (1 source) Cough; Translations: [Cough] 12-02-2024 Episodic Other non-traumatic joint disorders (1 source) Ankle pain Onset: 4 Episodic Other nutritional; endocrine; and metabolic disorders (6 sources) Body mass index 30+ - obesity; Translations: [Obesity, unspecified] Chronic Other nutritional; endocrine; and metabolic disorders (2 sources) Obesity, unspecified; Translations: [Obesity, unspecified] Chronic Other nutritional; endocrine; and metabolic disorders (3 sources) Obese class II; Translations: [Body mass index (BMI) 35.0-35.9, adult] Chronic Other nutritional; endocrine; and metabolic disorders (3 sources) Simple obesity ; Translations: [Other obesity due to excess calories] Onset: 7 Chronic Other nutritional; endocrine; and metabolic disorders (6 sources) Obesity; Translations: [Obesity, unspecified] 07-08-2024 Chronic Other and delivery including normal (12 [...] 7 Chronic Suicide and intentional self-inflicted injury (6 sources) Suicidal thoughts; Translations: [Suicidal ideations] 04-22-2023 [...] infectious disease] Onset: 2 Episodic Viral infection (6 sources) COVID-19; Translations: [Severe acute respiratory syndrome [...] Test Name Value Interpretation Reference Range Facility Laboratory - Chemistry and C hemistry - challengeOrdered By: Krishna Hernandez on 12-07-2024 Bilirubin Ql (U) Negative NEGATIVE [facility] Glucose (U) [Mass/Vol] Negative NEGATIVE [facility] Ketones Ql (U) Negative NEGATIVE [facility] pH (U) 6.5 [pH] 5.0-9.0 [facility] Specific gravity (U) [Rel density] 1.010 1.005-1.025 [facility] Urobilinogen Qn (U) 0.2 {Melissa'U}/dL 0.2-1.0 [facility] Laboratory - Specimen inform ationOrdered By: Krishna Hernandez on 12-07-2024 Appearance (U) CLEAR CLEAR [facility] Color (U) LT. YELLOW YELLOW [facility] Laboratory - UrinalysisOrder ed By: Krishna Hernandez on 12-07-2024 Leukocyte esterase Test strip Ql (U) SMALL Abnormal NEGATIVE [facility] Mucus Ql (Urine sed) NONE SEEN NONE SEEN [facility] Nitrite Ql (U) Negative NEGATIVE [facility] Protein Ql (U) Negative NEG/TRACE [facility] No Panel InformationOrdered By: Krishna Hernandez on 12-07-2024 Urine Bacteria TRACE #/HPF Abnormal NONE SEEN [facility] Urine Occult Blood MODERATE Abnormal NEGATIVE [facility] Urine Other Casts NONE SEEN #/LPF NONE SEEN [facility] Urine Other Crystals None Seen #/HPF None Seen [facility] Urine RBC 2-5 #/HPF Abnormal 0-2 [facility] Urine Squamous Epithelial Cells MODERATE #/LPF Abnormal NONE/RARE [facility] Urine WBC 0-2 #/HPF Abnormal NONE SEEN [facility] Urine Cultureon 12-07-2024 Bacteria identified Cx Nom (U) 50,000 colonies/ml mixed bacterial skin contaminants 2 Days PERFORMED BY: [address] [address] PATHOLOGIST DEPUTY INSURANCE COMMISSIONER ERIC BRANDT M.D. Normal [facility] Comment on above: Performed By: #### C UU #### [facility] [address] [id number] [facility] ALL CBC WITH AUTO DIFFon BASOPHILS ABSOLUTE AUTO 0 N [facility] Basophils/100 WBC (Bld) 0.4 % 0.2 - 2.0 % [facility] Eosinophils/100 WBC (Bld) 2.4 % 0.9 - 7.0 % [facility] Erythrocyte distribution width (RBC) [Ratio] 12.4 % 11.0 - 15.0 % [facility] Hematocrit (Bld) [Volume fraction] 40.5 % 36.0 - 48.0 % [facility] Hemoglobin (Bld) [Mass/Vol] 13.7 g/dL 12.0 - 16.0 g/dL [facility] IMMATURE GRANULOCYTES ABS AUTO 0.02 [facility] Immature granulocytes/100 WBC (Bld) 0.4 % 0.0 - 0.5 % [facility] Interpretation and review of laboratory results Abnormal [facility] LYMPHOCYTES ABSOLUTE AUTO 1.8 [facility] Lymphocytes/100 WBC (Bld) 39.6 % 20.5 - 60.0 % [facility] MCH (RBC) [Entitic mass] 30.4 pg 26.7 - 34.0 pg [facility] MCHC (RBC) [Mass/Vol] 33.8 g/dL 29.9 - 35.2 g/dL [facility] MCV (RBC) [Entitic vol] 90 fL 81.0 - 99.0 fL [facility] MONOCYTES ABSOLUTE AUTO 0.4 N [facility] Monocytes/100 WBC (Bld) 8 % 1.7 - 12.0 % [facility] NEUTROPHILS ABSOLUTE AUTO 2.3 [facility] Neutrophils/100 WBC (Bld) 49.2 % 43.0 - 75.0 % [facility] Platelet mean volume (Bld) [Entitic vol] 9.4 fL Low 9.5 - 13.5 fL [facility] TBH EO # 0.1 [facility] PLT 297 [facility] RBC 4.5 [facility] WBC 4.6 [facility] Basophils Auto (Bld) [#/Vol] on 08-08-2024 Basophils (Bld) [#/Vol] Automated basoph il count 0.0-0.1 [facility] Basophils/100 WBC Auto (Bld) on 08-08-2024 Basophils/100 WBC (Bld) Automated basophil % 0. 2-2.0 [facility] Eosinophils/100 WBC Auto (Bl d)on 08-08-2024 Eosinophils/100 WBC (Bld) Automated eosinophil % 0.9-7.0 [facility] Erythrocyte distribution wid th Auto (RBC) [Ratio]on 08-08-2024 Erythrocyte distribution width (RBC) [Ratio] Erythrocyte distribution width [Ratio] by Automated count 11.0-15.0 [facility] Estimated glomerular filtrat ion rate (GFR) non- Americanon 08-08-2024 GFR/1.73 sq M.predicted among non-blacks MDRD (S/P/Bld) [Vol rate/Area] Estimated glomerular filtration rate (GFR) non- >=60 mL/min/1.73m 2 [facility] Globulin Calc (S) [Mass/Vol] on 08-08-2024 Globulin (S) [Mass/Vol] Serum globulin measurement by calculation (mass/volume) [facility] Hematocrit Auto (Bld) [Volum e fraction]on 08-08-2024 Hematocrit (Bld) [Volume fraction] Hematocrit [Volume Fraction] of Blood by Automated count 36.0-48.0 [facility] Hemoglobin [Mass/volume] in Bloodon 08-08-2024 Hemoglobin (Bld) [Mass/Vol] Hemoglobin [Mass/volume] in Blood 12.0-16.0 [facility] Laboratory - Chemistry and C hemistry - challengeon 08-08-2024 Albumin [Mass/Vol] 3.7 g/dL 3.4-5.0 [facility] ALP [Catalytic activity/Vol] 78 U/L 46-116 [facility] ALT [Catalytic activity/Vol] 33 U/L 14-59 [facility] AST [Catalytic activity/Vol] 17 U/L 15-37 [facility] Bilirubin [Mass/Vol] 0.5 mg/dL 0.2-1.0 [facility] Calcium [Mass/Vol] 9.1 mg/dL 8.5-10.1 [facility] Chloride [Moles/Vol] 105 mmol/L 98-107 [facility] CO2 [Moles/Vol] 27.4 mmol/L 21.0-32.0 [facility] Creatinine [Mass/Vol] 0.76 mg/dL 0.55-1.02 [facility] GFR/1.73 sq M.predicted MDRD (S/P/Bld) [Vol rate/Area] mL/min/{1.73_m2} >=60 mL/min/1.73m 2 [facility] Glucose [Mass/Vol] 79 mg/dL 74-106 [facility] Potassium [Moles/Vol] 4.1 mmol/L 3.5-5.1 [facility] Protein [Mass/Vol] 6.7 g/dL 6.4-8.2 [facility] Sodium [Moles/Vol] 141 mmol/L 136-145 [facility] Urea nitrogen [Mass/Vol] 8.0 mg/dL 7.0-18.0 [facility] Urea nitrogen/Creatinine [Mass ratio] 10.5 mg/mg [facility] Laboratory - Hematology and Cell countson 08-08-2024 Immature granulocytes/100 WBC (Bld) 0.2 % 0.0-0.5 [facility] Leukocytes [#/volume] correc kenneth for nucleated erythrocytes in Blood by Automated counon 08-08-2024 WBC corrected for nucl RBC Auto (Bld) [#/Vol] Leukocytes [#/volume] corrected for nucleated erythrocytes in Blood by Automated coun 4.0-11.0 [facility] Lymphocytes Auto (Bld) [#/Vo l]on 08-08-2024 Lymphocytes (Bld) [#/Vol] Lymphocytes [#/volume] in Blood by Automated count 1.2-3.8 [facility] Lymphocytes/100 WBC Auto (Bl d)on 08-08-2024 Lymphocytes/100 WBC (Bld) Lymphocytes/100 leukocytes in Blood by Automated count 20.5-60.0 [facility] MCH Auto (RBC) [Entitic mass ]on 08-08-2024 MCH (RBC) [Entitic mass] MCH [Entitic mass] by Automated count 26.7-34.0 [facility] MCHC Auto (RBC) [Mass/Vol]on 08-08-2024 MCHC (RBC) [Mass/Vol] MCHC [Mass/volume] by Automated count 29.9-35.2 [facility] MCV Auto (RBC) [Entitic vol] on 08-08-2024 MCV (RBC) [Entitic vol] MCV [Entitic vol ume] by Automated count 81.0-99.0 [facility] Monocytes Auto (Bld) [#/Vol] on 08-08-2024 Monocytes (Bld) [#/Vol] Automated blood monocyte count 0.3-0.8 [facility] Monocytes/100 WBC Auto (Bld) on 08-08-2024 Monocytes/100 WBC (Bld) Automated monocyte % 1. 7-12.0 [facility] Neutrophils Auto (Bld) [#/Vo l]on 08-08-2024 Neutrophils (Bld) [#/Vol] Neutrophils [#/volume] in Blood by Automated count 1.4-6.5 [facility] Neutrophils/100 WBC Auto (Bl d)on 08-08-2024 Neutrophils/100 WBC (Bld) Automated neutrophil % 43.0-75.0 [facility] No Panel Informationon 08-08 Eosinophils # (Auto) 0.1 10 3/uL 0.0-0.7 [facility] Immature Granulocyte # (Auto) 0.01 10 3/uL 0.00-0.03 [facility] Platelet mean volume Auto (B ld) [Entitic vol]on 08-08-2024 Platelet mean volume (Bld) [Entitic vol] Platelet mean volume [Entitic volume] in Blood by Automated count 9.5-13.5 [facility] Platelets Auto (Bld) [#/Vol] on 08-08-2024 Platelets (Bld) [#/Vol] Platelets [#/vol ume] in Blood by Automated count 150-450 [facility] RBC Auto (Bld) [#/Vol]on RBC (Bld) [#/Vol] Erythrocytes [#/volume] in Blood by Automated count 4.20-5.40 [facility] Serum or plasma albumin/glob ulin mass ratioon 08-08-2024 Albumin/Globulin [Mass ratio] Serum or plasma albumin/globulin mass ratio [facility] Serum or plasma anion gap de terminationon 08-08-2024 Anion gap [Moles/Vol] Serum or plasma anion gap determination [facility] Urine Cultureon 08-08-2024 Bacteria identified Cx Nom (U) Urine Culture Results 30,000 colonies/ml Mixed Bacterial Skin Contaminants 2 Days ORGANISM: Kamini albicans (O:CANALB) Pesotum Count <10,000 PERFORMED BY: [facility] [address] [place] [address] PATHOLOGIST DEPUTY INSURANCE COMMISSIONER JAVIER Ruiz [facility] Comment on above: Performed By: #### C UU #### [facility] [address] US Pelvis transvaginalon EXAM: US PELVIS TRANSVAGINAL HISTORY: Unable to [...] the left ovary was not visualized. Electronically Signed:Contreras y signed by NOMI YANG II, MD, PHD at 28-Jul-2024 08:45:45 AM [facility] Nomi Yang MD - 07/28/2024 EXAM: US PELVIS TRANSVAGINAL HISTORY: Unable to [...] visualized. Electronically Signed:Electronicall y signed by NOMI YANG II, MD, PHD at 28-Jul-2024 08:45:45 AM [facility] US Pelvis transvaginalOrdere d By: Nomi Yang on 07-28-2024 [facility] Work Phone: IUD Removalon 07-26-2024 Gladis Almanza LPN 08/08/2024 11:15 AM IUD Removal Date/Time: 07/26/2024 2:33 PM Performed by: Jeremy Olmstead DO Authorized by: Jeremy Olmstead DO Consent: Consent obtained: Written Consent given by: Patient Procedure risks and benefits discussed: yes Patient questions answered: yes Patient agrees, verbalizes understanding, and wants to proceed: yes Educational handouts given: yes Instructions and paperwork completed: yes Roann protocol: Patient states understanding of procedure being performed: yes Relevant documents present and verified: yes Test results available and properly labeled: yes Imaging studies available: yes Required blood products, implants, devices, and special equipment available: yes Site marked: yes Procedure: Removed with no complications: no Removal due to mechanical complications of IUD: no Removal due to infection and inflammatory reaction: no Comments: IUD Removal: Patient presents today for removal of IUD. Written consent was obtained and patient was placed in dorsal lithotomy position with feet in stirrups. A sterile speculum was inserted into the vagina and the cervix was visualized. IUD was unable to be removed. Pt to be scheduled for surgery. Pt given pelvic ultrasound. KUB ordered to view for placement [facility] US PELVIS TRANSVAGINALon US PELVIS TRANSVAGINAL EXAM: [...] visualized. Electronically Signed:Electronicall y signed by NOMI YANG II, MD, PHD at 28-Jul-2024 08:45:45 AM [facility] Normal Not Available Comment on above: Order Comment: US PE LVIS TRANSVAGINAL No LMP recorded. (Menstrual status: No Periods). 223 lb 1.9 oz US Pelvis transvaginalon Radiology Study observation (narrative) [facility] CBC AND AUTO DIFFon 06-30-19 25 Erythrocyte distribution width (RBC) [Ratio] 12.4 % Normal 11.5-15.0 [facility] Comment on above: Performed By: #### C SUJEY, BMP #### [facility] ([id number]) [address] [place] [address], [place] [address] Hematocrit (Bld) [Volume fraction] 43.3 % Normal 35-47 [facility] Comment on above: Performed By: #### C BCA, BMP #### [facility] ([id number]) [address] [place] [id number] Hemoglobin (Bld) [Mass/Vol] 14.5 g/dL Normal 11.7-15.5 [facility] Comment on above: Performed By: #### C BCA, BMP #### [facility] ([id number]) [address] [place] [phone] Lymphocytes (Bld) [#/Vol] 4.7 10*3/uL High 1.0-3.5 [facility] Comment on above: Performed By: #### C BCA, BMP #### [facility] ([id number]) [address] [place] [id number] Lymphocytes/100 WBC (Bld) 33.0 % Normal [facility] Comment on above: Performed By: #### C BCA, BMP #### [facility] ([id number]) [address] [place] [id number] MCH (RBC) [Entitic mass] 29.8 pg Normal 27-34 [facility] Comment on above: Performed By: #### C BCA, BMP #### [facility] ([id number]) [address] [place] [id number] MCHC (RBC) [Mass/Vol] 33.5 g/dL Normal 32-36 [facility] Comment on above: Performed By: #### C BCA, BMP #### [facility] ([id number]) [address] [place] [address] MCV (RBC) [Entitic vol] 89 fL Normal 80-[address] [facility] Comment on above: Performed By: #### C BCA, BMP #### [facility] ([id number]) [address] [place] [address] 90209 Monocytes (Bld) [#/Vol] 0.7 10*3/uL Normal 0-0.9 [facility] Comment on above: Performed By: #### C SUJEY, BMP #### [facility] ([id number]) [address] [place] [address] 17619 Monocytes/100 WBC (Bld) 5.0 % Normal [facility] Comment on above: Performed By: #### C SUJEY, BMP #### [facility] ([id number]) [address] [place] [address] 72954 Neutrophils (Bld) [#/Vol] 8.8 10*3/uL High 1.5-6.6 [facility] Comment on above: Performed By: #### Davis RM, BMP #### [facility] ([id number]) [address] [place] [address] 20615 Platelet mean volume (Bld) [Entitic vol] 7.8 fL Normal 7-12 [facility] Comment on above: Performed By: #### C SUJEY, BMP #### [facility] ([id number]) [address] [place] [address] 45135 Platelets (Bld) [#/Vol] 374 10*3/uL Normal 150-450 [facility] Comment on above: Performed By: #### Davis RM, BMP #### [facility] ([id number]) [address] [place] [address] 23323 RBC COUNT 4.86 X10E12/L Normal 3.80-5.20 [facility] Comment on above: Performed By: #### Davis RM, BMP #### [facility] ([id number]) [address] [place] [address] 83746 RBC morphology finding Nom (Bld) NORMAL Normal [facility] Comment on above: Performed By: #### Davis RM, BMP #### [facility] ([id number]) [address] [place] [address] 74892 SEG NEUTROPHIL 62.0 % Normal [facility] Comment on above: Performed By: #### C BCA, BMP #### [facility] ([id number]) [address] [place] [address] 54940 WBC (Bld) [#/Vol] 14.2 10*3/uL High 4.0-11.0 [facility] Comment on above: Performed By: #### C BCA, BMP #### [facility] ([id number]) [address] [place] [address] 63687 COMPREHENSIVE METABOLIC PANE Fernando 06-30-2024 Albumin [Mass/Vol] 4.0 g/dL Normal 3.2-5.3 [facility] Comment on above: Performed By: #### C BCA, BMP #### [facility] ([id number]) [address] [place] [address] 99099 ALP [Catalytic activity/Vol] 55 U/L Normal 39-130 [facility] Comment on above: Performed By: #### C BCA, BMP #### [facility] ([id number]) [address] [place] [address] 96667 ALT [Catalytic activity/Vol] 132 U/L High 0-31 [facility] Comment on above: Performed By: #### C BCA, BMP #### [facility] ([id number]) [address] [place] [address] [place] [address] Anion gap [Moles/Vol] 6 mmol/L Normal 5-15 [facility] Comment on above: Performed By: #### C BCA, BMP #### [facility] ([id number]) [address] [place] [address] 12106 AST [Catalytic activity/Vol] 33 U/L Normal 0-41 [facility] Comment on above: Performed By: #### C BCA, BMP #### [facility] ([id number]) [address] [place] [address] 48029 Bilirubin [Mass/Vol] 0.8 mg/dL Normal 0.3-1.[address] [facility] Comment on above: Performed By: #### C BCA, BMP #### [facility] ([id number]) [address] [place] [address] 08752 Calcium [Mass/Vol] 8.4 mg/dL Low 8.5-10.5 [facility] Comment on above: Performed By: #### C BCA, BMP #### [facility] ([id number]) [address] [place] [address] 26924 Chloride [Moles/Vol] 104 mmol/L Normal 98-[address] [facility] Comment on above: Performed By: #### C BCA, BMP #### [facility] ([id number]) [address] [place] [address] 58343 CO2 [Moles/Vol] 23 mmol/L Normal 22-32 [facility] Comment on above: Performed By: #### C BCA, BMP #### [facility] ([id number]) [address] [place] [address] 42840 Creatinine [Mass/Vol] 0.69 mg/dL Normal 0.40-1.00 [facility] Comment on above: Result Comment: METH OD TRACEABLE TO IDMS STANDARD Performed By: #### C BCA, BMP #### [facility] ([id number]) [address] [place] [address] 47636 eGFR (CKD-EPI) NON-RACE DEPENDENT >90 Normal >59 [facility] Comment on above: Result Comment: Reported eGFR is based on the CKD-EPI 2020 equation that does not use a race coefficient. Performed By: #### C BCA, BMP #### [facility] ([id number]) [address] [place] [address] 68556 Glucose [Mass/Vol] 92 mg/dL Normal 65-99 [facility] Comment on above: Performed By: #### C BCA, BMP #### [facility] ([id number]) [address] [place] [address] 62996 Potassium [Moles/Vol] 4.0 mmol/L Normal 3.5-5.0 [facility] Comment on above: Performed By: #### C BCA, BMP #### [facility] ([id number]) [address] [place] [address] 96887 Protein [Mass/Vol] 6.8 g/dL Normal 6.0-8.0 [facility] Comment on above: Performed By: #### C BCA, BMP #### [facility] ([id number]) [address] [place] [address] 76678 Sodium [Moles/Vol] 133 mmol/L Low 134-146 [facility] Comment on above: Performed By: #### C SUJEY, BMP #### [facility] ([id number]) [address] [place] [address] 35775 Urea nitrogen [Mass/Vol] 15 mg/dL Normal 5-23 [facility] Comment on above: Performed By: #### C BCA, BMP #### [facility] ([id number]) [address] [place] [address] NECK SOFT TISSUE W CONTon 06-30-2024 [...] Barkley MD on 06/30/2024 11:48 AM Normal [facility] CBC AND AUTO DIFFon 06-28-19 25 ABSOLUTE BASOPHIL 0.0 X10E9/L Normal 0.0-0.2 [facility] Comment on above: Performed By: #### C CAMRON RM #### [facility] ([id number]) [address] [place] [address] 33034 ABSOLUTE NEUTROPHIL 9.4 X10E9/L High 1.5-6.[address] [facility] Comment on above: Performed By: #### C SUJEY BMP #### [facility] ([id number]) [address] [place] [address] 28223 Basophils/100 WBC (Bld) 0.3 % Normal P [facility] Comment on above: Performed By: #### C BCA, BMP #### [facility] ([id number]) [address] [place] [address] 60801 Eosinophils (Bld) [#/Vol] 0.0 10*3/uL Normal 0.0-0.4 [facility] Comment on above: Performed By: #### C BCA, BMP #### [facility] ([id number]) [address] [place] [address] 14737 Eosinophils/100 WBC (Bld) 0.0 % Normal [facility] Comment on above: Performed By: #### C SUJEY, BMP #### [facility] ([id number]) [address] [place] [address] 13924 Erythrocyte distribution width (RBC) [Ratio] 12.6 % Normal 11.5-15.0 [facility] Comment on above: Performed By: #### C SUJEY, BMP #### [facility] ([id number]) [address] [place] [address] 01151 Hematocrit (Bld) [Volume fraction] 39.6 % Normal 35-47 [facility] Comment on above: Performed By: #### C BCA, BMP #### [facility] ([id number]) [address] [place] [address] 35664 Hemoglobin (Bld) [Mass/Vol] 13.3 g/dL Normal 11.7-15.5 [facility] Comment on above: Performed By: #### C BCA, BMP #### [facility] ([id number]) [address] [place] [address] 54594 Lymphocytes (Bld) [#/Vol] 1.9 10*3/uL Normal 1.0-3.5 [facility] Comment on above: Performed By: #### C BCA, BMP #### [facility] ([id number]) [address] [place] [address] 49926 Lymphocytes/100 WBC (Bld) 16.4 % Normal [facility] Comment on above: Performed By: #### C SUJEY, BMP #### [facility] ([id number]) [address] [place] [address] 71212 MCH (RBC) [Entitic mass] 29.8 pg Normal 27-34 [facility] Comment on above: Performed By: #### C SUJEY, BMP #### [facility] ([id number]) [address] [place] [address] 54805 MCHC (RBC) [Mass/Vol] 33.6 g/dL Normal 32-36 [facility] Comment on above: Performed By: #### C SUJEY, BMP #### [facility] ([id number]) [address] [place] [address] 77629 MCV (RBC) [Entitic vol] 89 fL Normal 80-100 [facility] Comment on above: Performed By: #### C SUJEY, BMP #### [facility] ([id number]) [address] [place] [address] 78178 Monocytes (Bld) [#/Vol] 0.4 10*3/uL Normal 0-0.9 [facility] Comment on above: Performed By: #### C SUJEY, BMP #### [facility] ([id number]) [address] [place] [address] 80020 Monocytes/100 WBC (Bld) 3.5 % Normal [facility] Comment on above: Performed By: #### C SUJEY, BMP #### [facility] ([id number]) [address] [place] [address] 58748 Neutrophils/100 WBC (Bld) 79.8 % Normal [facility] Comment on above: Performed By: #### C SUJEY, BMP #### [facility] ([id number]) [address] [place] [address] 46311 Platelet mean volume (Bld) [Entitic vol] 8.0 fL Normal 7-12 [facility] Comment on above: Performed By: #### C SUJEY, BMP #### [facility] ([id number]) [address] [place] [address] 89681 Platelets (Bld) [#/Vol] 342 10*3/uL Normal 150-450 [facility] Comment on above: Performed By: #### Davis RM, BMP #### [facility] ([id number]) [address] [place] [address] 86642 RBC COUNT 4.47 X10E12/L Normal 3.80-5.20 [facility] Comment on above: Performed By: #### Davis RM, BMP #### [facility] ([id number]) [address] [place] [address] 76253 WBC (Bld) [#/Vol] 11.8 10*3/uL High 4.0-11.0 [facility] Comment on above: Performed By: #### Davis RM, BMP #### [facility] ([id number]) [address] [place] [address] 21054 COMPREHENSIVE METABOLIC PANE Fernando 06-28-2024 Albumin [Mass/Vol] 3.9 g/dL Normal 3.2-5.3 [facility] Comment on above: Performed By: #### Davis RM, BMP #### [facility] ([id number]) [address] [place] [address] 82717 ALP [Catalytic activity/Vol] 59 U/L Normal 39-130 [facility] Comment on above: Performed By: #### Davis RM, BMP #### [facility] ([id number]) [address] [place] [address] 74241 ALT [Catalytic activity/Vol] 58 U/L High 0-31 [facility] Comment on above: Performed By: #### C BCA, BMP #### [facility] ([id number]) [address] [place] [address] 23911 Anion gap [Moles/Vol] 10 mmol/L Normal 5-15 [facility] Comment on above: Performed By: #### C BCA, BMP #### [facility] ([id number]) [address] [place] [address] 64096 AST [Catalytic activity/Vol] 32 U/L Normal 0-41 [facility] Comment on above: Performed By: #### C BCA, BMP #### [facility] ([id number]) [address] [place] [address] 25776 Bilirubin [Mass/Vol] 0.7 mg/dL Normal 0.3-1.[address] [facility] Comment on above: Performed By: #### C SUJEY, BMP #### [facility] ([id number]) [address] [place] [address] 66773 Calcium [Mass/Vol] 8.9 mg/dL Normal 8.5-10.5 [facility] Comment on above: Performed By: #### C BCA, BMP #### [facility] ([id number]) [address] [place] [address] 14501 Chloride [Moles/Vol] 103 mmol/L Normal 98-[address] [facility] Comment on above: Performed By: #### C BCA, BMP #### [facility] ([id number]) [address] [place] [address] 44768 CO2 [Moles/Vol] 22 mmol/L Normal 22-32 [facility] Comment on above: Performed By: #### C BCA, BMP #### [facility] ([id number]) [address] [place] [address] 60315 Creatinine [Mass/Vol] 0.59 mg/dL Normal 0.40-1.00 [facility] Comment on above: Result Comment: METH OD TRACEABLE TO IDMS STANDARD Performed By: #### C BCA, BMP #### [facility] ([id number]) [address] [place] [address] 36205 eGFR (CKD-EPI) NON-RACE DEPENDENT >90 Normal >59 [facility] Comment on above: Result Comment: Reported eGFR is based on the CKD-EPI 2020 equation that does not use a race coefficient. Performed By: #### C BCA, BMP #### [facility] ([id number]) [address] [place] [address] 00271 Glucose [Mass/Vol] 132 mg/dL High 65-99 [facility] Comment on above: Performed By: #### C BCA, BMP #### [facility] ([id number]) [address] [place] [address] 08536 Potassium [Moles/Vol] 4.0 mmol/L Normal 3.5-5.0 [facility] Comment on above: Performed By: #### C BCA, BMP #### [facility] ([id number]) [address] [place] [address] 53079 Protein [Mass/Vol] 6.7 g/dL Normal 6.0-8.0 [facility] Comment on above: Performed By: #### C BCA, BMP #### [facility] ([id number]) [address] [place] [address] 17969 Sodium [Moles/Vol] 135 mmol/L Normal 134-146 [facility] Comment on above: Performed By: #### C BCA, BMP #### [facility] ([id number]) [address] [place] [address] 65204 Urea nitrogen [Mass/Vol] 15 mg/dL Normal 5-23 [facility] Comment on above: Performed By: #### C BCA, BMP #### [facility] ([id number]) [address] [place] [address] 74074 MAGNESIUMon 06-28-2024 Magnesium [Mass/Vol] 2.3 mg/dL Normal 1.8-2.[address] [facility] Comment on above: Performed By: #### C SUJEY, BMP #### [facility] ([id number]) [address] [place] [address] 76091 CBC AND AUTO DIFFon 06-27-19 ABSOLUTE BASOPHIL 0.1 X10E9/L Normal 0.0-0.2 [facility] Comment on above: Performed By: #### C SUJEY, BMP #### [facility] ([id number]) [address] [place] [address] 64806 ABSOLUTE NEUTROPHIL 7.8 X10E9/L High 1.5-6.[address] [facility] Comment on above: Performed By: #### C SUJEY, BMP #### [facility] ([id number]) [address] [place] [address] 88779 Basophils/100 WBC (Bld) 0.7 % Normal [facility] Comment on above: Performed By: #### C SUJEY, BMP #### [facility] ([id number]) [address] [place] [address] 59203 Eosinophils (Bld) [#/Vol] 0.0 10*3/uL Normal 0.0-0.4 [facility] Comment on above: Performed By: #### C SUJEY, BMP #### [facility] ([id number]) [address] [place] [address] 83481 Eosinophils/100 WBC (Bld) 0.1 % Normal [facility] Comment on above: Performed By: #### Davis RM, BMP #### [facility] ([id number]) [address] [place] [address] 73740 Erythrocyte distribution width (RBC) [Ratio] 12.7 % Normal 11.5-15.0 [facility] Comment on above: Performed By: #### C BCA, BMP #### [facility] ([id number]) [address] [place] [address] 40287 Hematocrit (Bld) [Volume fraction] 38.3 % Normal 35-47 [facility] Comment on above: Performed By: #### C BCA, BMP #### [facility] ([id number]) [address] [place] [address] 89961 Hemoglobin (Bld) [Mass/Vol] 13.2 g/dL Normal 11.7-15.5 [facility] Comment on above: Performed By: #### C SUJEY, BMP #### [facility] ([id number]) [address] [place] [address] 28117 Lymphocytes (Bld) [#/Vol] 1.4 10*3/uL Normal 1.0-3.5 [facility] Comment on above: Performed By: #### C BCA, BMP #### [facility] ([id number]) [address] [place] [address] 10052 Lymphocytes/100 WBC (Bld) 14.5 % Normal [facility] Comment on above: Performed By: #### C BCA, BMP #### [facility] ([id number]) [address] [place] [address] 55371 MCH (RBC) [Entitic mass] 30.5 pg Normal 27-34 [facility] Comment on above: Performed By: #### C BCA, BMP #### [facility] ([id number]) [address] [place] [address] 87375 MCHC (RBC) [Mass/Vol] 34.5 g/dL Normal 32-36 [facility] Comment on above: Performed By: #### C BCA, BMP #### [facility] ([id number]) [address] [place] [address] MCV (RBC) [Entitic vol] 88 fL Normal 80-100 [facility] Comment on above: Performed By: #### C SUJEY, BMP #### [facility] ([id number]) [address] [place] [address] 89580 Monocytes (Bld) [#/Vol] 0.3 10*3/uL Normal 0-0.9 [facility] Comment on above: Performed By: #### C SUJEY, BMP #### [facility] ([id number]) [address] [place] [address] 15894 Monocytes/100 WBC (Bld) 3.3 % Normal [facility] Comment on above: Performed By: #### C SUJEY, BMP #### [facility] ([id number]) [address] [place] [address] 24760 Neutrophils/100 WBC (Bld) 81.4 % Normal [facility] Comment on above: Performed By: #### C SUJEY, BMP #### [facility] ([id number]) [address] [place] [address] [place] [address] Platelet mean volume (Bld) [Entitic vol] 8.2 fL Normal 7-12 [facility] Comment on above: Performed By: #### C SUJEY, BMP #### [facility] ([id number]) [address] [place] [address] 01723 Platelets (Bld) [#/Vol] 321 10*3/uL Normal 150-450 [facility] Comment on above: Performed By: #### C SUJEY, BMP #### [facility] ([id number]) [address] [place] [address] 14512 RBC COUNT 4.33 X10E12/L Normal 3.80-5.20 [facility] Comment on above: Performed By: #### C SUJEY, BMP #### [facility] ([id number]) [address] [place] [address], [place] [address] WBC (Bld) [#/Vol] 9.6 10*3/uL Normal 4.0-11.0 [facility] Comment on above: Performed By: #### C BCA, BMP #### [facility] ([id number]) [address] [place] [address] 27932 COMPREHENSIVE METABOLIC PANE Fernando 06-27-2024 Albumin [Mass/Vol] 3.6 g/dL Normal 3.2-5.3 [facility] Comment on above: Performed By: #### C SUJEY, BMP #### [facility] ([id number]) [address] [place] [address] 07264 ALP [Catalytic activity/Vol] 59 U/L Normal 39-130 [facility] Comment on above: Performed By: #### C SUJEY, BMP #### [facility] ([id number]) [address] [place] [address] 49184 ALT [Catalytic activity/Vol] 36 U/L High 0-31 [facility] Comment on above: Performed By: #### C SUJEY, BMP #### [facility] ([id number]) [address] [place] [address] 72400 Anion gap [Moles/Vol] 8 mmol/L Normal 5-15 [facility] Comment on above: Performed By: #### C BCA, BMP #### [facility] ([id number]) [address] [place] [address] 93140 AST [Catalytic activity/Vol] 21 U/L Normal 0-41 [facility] Comment on above: Performed By: #### C BCA, BMP #### [facility] ([id number]) [address] [place] [address] 80439 Bilirubin [Mass/Vol] 0.7 mg/dL Normal 0.3-1.[address] [facility] Comment on above: Performed By: #### C BCA, BMP #### [facility] ([id number]) [address] [place] [address] 40667 Calcium [Mass/Vol] 8.7 mg/dL Normal 8.5-10.5 [facility] Comment on above: Performed By: #### C BCA, BMP #### [facility] ([id number]) [address] [place] [address] 97899 Chloride [Moles/Vol] 108 mmol/L Normal 98-[address] [facility] Comment on above: Performed By: #### C SUJEY, BMP #### [facility] ([id number]) [address] [place] [address] 49421 CO2 [Moles/Vol] 21 mmol/L Low 22-32 [facility] Comment on above: Performed By: #### C SUJEY, BMP #### [facility] ([id number]) [address] [place] [address] 61052 Creatinine [Mass/Vol] 0.55 mg/dL Normal 0.40-1.00 [facility] Comment on above: Result Comment: METH OD TRACEABLE TO IDMS STANDARD Performed By: #### C SUJEY, BMP #### [facility] ([id number]) [address] [place] [address] 89225 eGFR (CKD-EPI) NON-RACE DEPENDENT >90 Normal >59 [facility] Comment on above: Result Comment: Reported eGFR is based on the CKD-EPI 2021 equation that does not use a race coefficient. Performed By: #### C SUJEY, BMP #### [facility] ([id number]) [address] [place] [address] 98847 Glucose [Mass/Vol] 141 mg/dL High 65-99 [facility] Comment on above: Performed By: #### C BCA, BMP #### [facility] ([id number]) [address] [place] [address] 24255 Potassium [Moles/Vol] 3.8 mmol/L Normal 3.5-5.0 [facility] Comment on above: Performed By: #### C BCA, BMP #### [facility] ([id number]) [address] [place] [address] 56025 Protein [Mass/Vol] 6.5 g/dL Normal 6.0-8.0 [facility] Comment on above: Performed By: #### C BCA, BMP #### [facility] ([id number]) [address] [place] [address] 26414 Sodium [Moles/Vol] 137 mmol/L Normal 134-146 [facility] Comment on above: Performed By: #### C BCA, BMP #### [facility] ([id number]) [address] [place] [address] 66417 Urea nitrogen [Mass/Vol] 11 mg/dL Normal 5-23 [facility] Comment on above: Performed By: #### C BCA, BMP #### [facility] ([id number]) [address] [place] [address] NECK SOFT TISSUE W CONTon 06-27-2024 [...] within the supraglottic, glottic or subglottic larynx. Instrument Lens Generator/Paraphary ngeal: Muscles of mastication are unremarkable. Parapharyngeal [...] Nawaf Brody on 06/27/2024 10:40 AM Normal [facility] MAGNESIUMon 06-27-2024 Magnesium [Mass/Vol] 2.0 mg/dL Normal 1.8-2.[address] [facility] Comment on above: Performed By: #### C SUJEY, CAMRON #### [facility] ([id number]) [address] [place] [address] 83416 POTASSIUMon 06-27-2024 Potassium [Moles/Vol] 3.9 mmol/L Normal 3.5-5.0 [facility] Comment on above: Performed By: #### C SUJEY, BMP #### [facility] ([id number]) [address] [place] [address] 47556 Troponin I.cardiac High sens itivity method [Mass/Vol]on 06-27-2024 3 HOUR TROP I, HIGH SENSITIVITY <2 Normal <16 [facility] Comment on above: Performed By: #### C BCA, BMP #### [facility] ([id number]) [address] [place] [id number] XR CHEST 1 VWon 06-27-2024 XR CHEST 1 VW XR CHEST 1 VW EXAM: XR CHEST 1 VW CLINICAL INFORMATION: CP. COMPARISON: 03/23/2017 FINDINGS: There are no pleural effusions. The lungs are clear and well aerated. Heart size is within normal limits. IMPRESSION: 1. No acute cardiopulmonary disease. Finalized by Kam Barkley MD on 06/27/2024 12:38 PM Normal [facility] CBC AND AUTO DIFFon 06-26-19 25 ABSOLUTE BASOPHIL 0.0 X10E9/L Normal 0.0-0.2 [facility] Comment on above: Performed By: #### C SUJEY [facility], [id number] #### [facility] ([id number]) [address] [place] [id number] ABSOLUTE NEUTROPHIL 6.0 X10E9/L Normal 1.5-6.[address] [facility] Comment on above: Performed By: #### Davis RM CMP, [id number] #### [facility] ([id number]) [address] [place] [address] [id number] Basophils/100 WBC (Bld) 0.2 % Normal [facility] Comment on above: Performed By: #### Davis RM CMP, [id number] #### [facility] ([id number]) [address] [place] [address] 31394 Eosinophils (Bld) [#/Vol] 0.0 10*3/uL Normal 0.0-0.4 [facility] Comment on above: Performed By: #### Davis RM, CMP, 19278-7 #### [facility] ([id number]) [address] [place] [address] 57919 Eosinophils/100 WBC (Bld) 0.4 % Normal [facility] Comment on above: Performed By: #### Davis RM [facility], 69802-1 #### [facility] ([id number]) [address] [place] [address] 02317 Erythrocyte distribution width (RBC) [Ratio] 12.6 % Normal 11.5-15.0 [facility] Comment on above: Performed By: #### Davis RM [facility], 35867-3 #### [facility] ([id number]) [address] [place] [address] 16717 Hematocrit (Bld) [Volume fraction] 40.5 % Normal 35-47 [facility] Comment on above: Performed By: #### Davis RM [facility], 63575-6 #### [facility] ([id number]) [address] [place] [address] 41880 Hemoglobin (Bld) [Mass/Vol] 13.7 g/dL Normal 11.7-15.5 [facility] Comment on above: Performed By: #### Davis RM [facility], 62534-0 #### [facility] ([id number]) [address] [place] [address] 62178 Lymphocytes (Bld) [#/Vol] 1.1 10*3/uL Normal 1.0-3.5 [facility] Comment on above: Performed By: #### Davis RM [facility], 15854-0 #### [facility] ([id number]) [address] [place] [address] 65801 Lymphocytes/100 WBC (Bld) 15.5 % Normal [facility] Comment on above: Performed By: #### Davis RM CMP, 95576-8 #### [facility] ([id number]) [address] [place] [address] 41287 MCH (RBC) [Entitic mass] 30.1 pg Normal 27-34 [facility] Comment on above: Performed By: #### Davis RM CMP, #### [facility] ([id number]) [address] [place] [address] 37458 MCHC (RBC) [Mass/Vol] 33.8 g/dL Normal 32-36 [facility] Comment on above: Performed By: #### C BCA, CMP, #### [facility] ([id number]) [address] [place] [address] 60072 MCV (RBC) [Entitic vol] 89 fL Normal 80-100 [facility] Comment on above: Performed By: #### Davis RM, CMP, #### [facility] ([id number]) [address] [place] [address] 29877 Monocytes (Bld) [#/Vol] 0.1 10*3/uL Normal 0-0.9 [facility] Comment on above: Performed By: #### C SUJEY, CMP, #### [facility] ([id number]) [address] [place] [address] 87909 Monocytes/100 WBC (Bld) 1.8 % Normal [facility] Comment on above: Performed By: #### C BCA, CMP, #### [facility] ([id number]) [address] [place] [address] 78103 Neutrophils/100 WBC (Bld) 82.1 % Normal [facility] Comment on above: Performed By: #### C BCA, CMP, #### [facility] ([id number]) [address] [place] [address] 77053 Platelet mean volume (Bld) [Entitic vol] 8.3 fL Normal 7-12 [facility] Comment on above: Performed By: #### C BCA, CMP, #### [facility] ([id number]) [address] [place] [address] 44735 Platelets (Bld) [#/Vol] 265 10*3/uL Normal 150-450 [facility] Comment on above: Performed By: #### C SUJEY, CMP, 53983-5 #### [facility] ([id number]) [address] [place] [address] 33831 RBC COUNT 4.55 X10E12/L Normal 3.80-5.20 [facility] Comment on above: Performed By: #### C SUJEY, CMP, 25548-8 #### [facility] ([id number]) [address] [place] [address] 27400 WBC (Bld) [#/Vol] 7.3 10*3/uL Normal 4.0-11.0 [facility] Comment on above: Performed By: #### C SUJEY, CMP, 61969-6 #### [facility] ([id number]) [address] [place] [address] 38903 COMPREHENSIVE METABOLIC PANE Fernando 06-26-2024 Albumin [Mass/Vol] 4.0 g/dL Normal 3.2-5.3 [facility] Comment on above: Performed By: #### C SUJEY, CMP, 27688-5 #### [facility] ([id number]) [address] [place] [address] 19178 ALP [Catalytic activity/Vol] 67 U/L Normal 39-130 [facility] Comment on above: Performed By: #### C BCA, CMP, 62542-4 #### [facility] ([id number]) [address] [place] [address] 42747 ALT [Catalytic activity/Vol] 43 U/L High 0-31 [facility] Comment on above: Performed By: #### C BCA, CMP, 10154-9 #### [facility] ([id number]) [address] [place] [address] 06339 Anion gap [Moles/Vol] 10 mmol/L Normal 5-15 [facility] Comment on above: Performed By: #### C SUJEY, [facility], 85603-5 #### [facility] ([id number]) [address] [place] [address] 48017 AST [Catalytic activity/Vol] 33 U/L Normal 0-41 [facility] Comment on above: Performed By: #### C BCA, [facility], 79785-3 #### [facility] ([id number]) [address] [place] [address] 35111 Bilirubin [Mass/Vol] 0.4 mg/dL Normal 0.3-1.[address] [facility] Comment on above: Performed By: #### C SUJEY, [facility], 40829-7 #### [facility] ([id number]) [address] [place] [address] 93258 Calcium [Mass/Vol] 8.9 mg/dL Normal 8.5-10.5 [facility] Comment on above: Performed By: #### C BCA, [facility], 36799-1 #### [facility] ([id number]) [address] [place] [address] 57219 Chloride [Moles/Vol] 106 mmol/L Normal 98-[address] [facility] Comment on above: Performed By: #### C BCA, [facility], #### [facility] ([id number]) [address] [place] [address] 07708 CO2 [Moles/Vol] 20 mmol/L Low 22-32 [facility] Comment on above: Performed By: #### C BCA, CMP, 15058-5 #### [facility] ([id number]) [address] [place] [address] 61138 Creatinine [Mass/Vol] 0.57 mg/dL Normal 0.40-1.00 [facility] Comment on above: Result Comment: METH OD TRACEABLE TO IDMS STANDARD Performed By: #### C SHEA RM, 42504-2 #### [facility] ([id number]) [address] [place] [address] 66825 eGFR (CKD-EPI) NON-RACE DEPENDENT >90 Normal >59 [facility] Comment on above: Result Comment: Reported eGFR is based on the CKD-EPI 2020 equation that does not use a race coefficient. Performed By: #### C SHEA RM, #### [facility] ([id number]) [address] [place] [address] 14946 Glucose [Mass/Vol] 129 mg/dL High 65-99 [facility] Comment on above: Performed By: #### C SUJEY [facility], 73554-8 #### [facility] ([id number]) [address] [place] [address] 65533 Potassium [Moles/Vol] 4.1 mmol/L Normal 3.5-5.0 [facility] Comment on above: Performed By: #### C SUJEY [facility], 65603-1 #### [facility] ([id number]) [address] [place] [address] 20546 Protein [Mass/Vol] 7.0 g/dL Normal 6.0-8.0 [facility] Comment on above: Performed By: #### C SUJEY [facility], #### [facility] ([id number]) [address] [place] [address] 63788 Sodium [Moles/Vol] 136 mmol/L Normal 134-146 [facility] Comment on above: Performed By: #### C SUJEY [facility], 30345-3 #### [facility] ([id number]) [address] [place] [address] 78965 Urea nitrogen [Mass/Vol] 9 mg/dL Normal 5-23 [facility] Comment on above: Performed By: #### C SHEA RM, 22589-2 #### [facility] ([id number]) [address] [place] [address] 17232 MAGNESIUMon 06-26-2024 Magnesium [Mass/Vol] 2.1 mg/dL Normal 1.8-2.[address] [facility] Comment on above: Performed By: #### C SUJEY, [facility], 57913-3 #### [facility] ([id number]) [address] [place] [address] 40071 BASIC METABOLIC PANLon 06-25 Anion gap [Moles/Vol] 6 mmol/L Normal 5-15 [facility] Comment on above: Performed By: #### C SUJEY, BMP #### [facility] ([id number]) [address] [place] [address] 02806 Calcium [Mass/Vol] 9.0 mg/dL Normal 8.5-10.5 [facility] Comment on above: Performed By: #### C BCA, BMP #### [facility] ([id number]) [address] [place] [address] 54769 Chloride [Moles/Vol] 106 mmol/L Normal 98-[address] [facility] Comment on above: Performed By: #### C BCA, BMP #### [facility] ([id number]) [address] [place] [address] 09641 CO2 [Moles/Vol] 25 mmol/L Normal 22-32 [facility] Comment on above: Performed By: #### C BCA, BMP #### [facility] ([id number]) [address] [place] [address] 49294 Creatinine [Mass/Vol] 0.54 mg/dL Normal 0.40-1.00 [facility] Comment on above: Result Comment: METH OD TRACEABLE TO IDMS STANDARD Performed By: #### C BCA, BMP #### [facility] ([id number]) [address] [place] [address] eGFR (CKD-EPI) NON-RACE DEPENDENT >90 Normal >59 [facility] Comment on above: Result Comment: Reported eGFR is based on the CKD-EPI 2020 equation that does not use a race coefficient. Performed By: #### C SUJEY, BMP #### [facility] ([id number]) [address] [place] [address] 49241 Glucose [Mass/Vol] 145 mg/dL High 65-99 [facility] Comment on above: Performed By: #### C SUJEY, BMP #### [facility] ([id number]) [address] [place] [address] 21146 Potassium [Moles/Vol] 3.5 mmol/L Normal 3.5-5.0 [facility] Comment on above: Performed By: #### C SUJEY, BMP #### [facility] ([id number]) [address] [place] [address] 13895 Sodium [Moles/Vol] 137 mmol/L Normal 134-146 [facility] Comment on above: Performed By: #### C SUJEY, BMP #### [facility] ([id number]) [address] [place] [address] 88796 Urea nitrogen [Mass/Vol] 9 mg/dL Normal 5-23 [facility] Comment on above: Performed By: #### C SUJEY, BMP #### [facility] ([id number]) [address] [place] [address] 02603 CBC AND AUTO DIFFon 02-15-20 25 ABSOLUTE BASOPHIL 0.1 X10E9/L Normal 0.0-0.2 [facility] Comment on above: Performed By: #### C SUJEY, BMP #### [facility] ([id number]) [address] [place] [address] 48501 ABSOLUTE NEUTROPHIL 3.1 X10E9/L Normal 1.5-6.[address] [facility] Comment on above: Performed By: #### C SUJEY, BMP #### [facility] ([id number]) [address] [place] [address] 30834 Basophils/100 WBC (Bld) 0.9 % Normal [facility] Comment on above: Performed By: #### C BCA, BMP #### [facility] ([id number]) [address] [place] [address] 29509 Eosinophils (Bld) [#/Vol] 0.1 10*3/uL Normal 0.0-0.4 [facility] Comment on above: Performed By: #### C SUJEY, BMP #### [facility] ([id number]) [address] [place] [address] 23987 Eosinophils/100 WBC (Bld) 2.0 % Normal [facility] Comment on above: Performed By: #### C SUJEY, BMP #### [facility] ([id number]) [address] [place] [address] 73268 Erythrocyte distribution width (RBC) [Ratio] 12.7 % Normal 11.5-15.0 [facility] Comment on above: Performed By: #### C SUJEY, BMP #### [facility] ([id number]) [address] [place] [address] 38898 Hematocrit (Bld) [Volume fraction] 39.8 % Normal 35-47 [facility] Comment on above: Performed By: #### C SUJEY, BMP #### [facility] ([id number]) [address] [place] [address] 71881 Hemoglobin (Bld) [Mass/Vol] 13.6 g/dL Normal 11.7-15.5 [facility] Comment on above: Performed By: #### C BCA, BMP #### [facility] ([id number]) [address] [place] [address] 38619 Lymphocytes (Bld) [#/Vol] 2.8 10*3/uL Normal 1.0-3.5 [facility] Comment on above: Performed By: #### C SUJEY, BMP #### [facility] ([id number]) [address] [place] [address] 93845 Lymphocytes/100 WBC (Bld) 44.5 % Normal [facility] Comment on above: Performed By: #### C SUJEY, BMP #### [facility] ([id number]) [address] [place] [address] 99778 MCH (RBC) [Entitic mass] 30.2 pg Normal 27-34 [facility] Comment on above: Performed By: #### C SUJEY, BMP #### [facility] ([id number]) [address] [place] [address] 47925 MCHC (RBC) [Mass/Vol] 34.2 g/dL Normal 32-36 [facility] Comment on above: Performed By: #### C SUJEY, BMP #### [facility] ([id number]) [address] [place] [address] 86477 MCV (RBC) [Entitic vol] 88 fL Normal 80-100 [facility] Comment on above: Performed By: #### C SUJEY, BMP #### [facility] ([id number]) [address] [place] [address] 28496 Monocytes (Bld) [#/Vol] 0.3 10*3/uL Normal 0-0.9 [facility] Comment on above: Performed By: #### C SUJEY, BMP #### [facility] ([id number]) [address] [place] [address] 94843 Monocytes/100 WBC (Bld) 4.1 % Normal [facility] Comment on above: Performed By: #### C SUJEY, BMP #### [facility] ([id number]) [address] [place] [address] 87457 Neutrophils/100 WBC (Bld) 48.5 % Normal [facility] Comment on above: Performed By: #### Davis RM, BMP #### [facility] ([id number]) [address] [place] [address] 92159 Platelet mean volume (Bld) [Entitic vol] 7.8 fL Normal 7-12 [facility] Comment on above: Performed By: #### Davis RM, BMP #### [facility] ([id number]) [address] [place] [address] 63364 Platelets (Bld) [#/Vol] 289 10*3/uL Normal 150-450 [facility] Comment on above: Performed By: #### Davis RM, BMP #### [facility] ([id number]) [address] [place] [address] 41705 RBC COUNT 4.51 X10E12/L Normal 3.80-5.20 [facility] Comment on above: Performed By: #### Davis RM, BMP #### [facility] ([id number]) [address] [place] [address] 72332 WBC (Bld) [#/Vol] 6.4 10*3/uL Normal 4.0-11.0 [facility] Comment on above: Performed By: #### Davis RM, BMP #### [facility] ([id number]) [address] [place] [address] NECK SOFT TISSUE W CONTon 06-25-2024 [...] Hall MD on 06/25/2024 11:59 PM Normal [facility] HCG ( test) Ql (U)o n 06-25-2024 Beta HCG ( test) Ql (U) Negative Normal NEG [facility] Comment on above: Performed By: #### 2 106-3 #### [facility] ([id number]) [address] [place] [address] 06229 RAPID STREP SCR NURSINGon S. pyogenes Ag EIA Ql (Throat) Positive Abnormal NEG [facility] Comment on above: Performed By: #### 6 556-5 #### [facility] ([id number]) [address] [place] [address] 56784 STREP PCR THROATon S. pyogenes DNA TRAY+probe Nom (Unsp spec) STREP PCR THROAT Negative (qualifier value) Streptococcus Group A NOT detected by nucleic acid amplification. Normal [facility] Comment on above: Performed By: #### 4 9610-9 #### [facility] ([id number]) [address], [address] [place] [address] XR ANKLE LT MIN 3 VWSon 04-10 XR ANKLE LT MIN 3 VWS XR [...] Emmanuel MD on 04/26/2024 12:06 PM Normal [facility] Basophils Auto (Bld) [#/Vol] on 04-18-2024 Basophils (Bld) [#/Vol] Automated basoph il count 0.0-0.1 [facility] Basophils/100 WBC Auto (Bld) on 04-18-2024 Basophils/100 WBC (Bld) Automated basophil % 0. 2-2.0 [facility] Eosinophils/100 WBC Auto (Bl d)on 04-18-2024 Eosinophils/100 WBC (Bld) Automated eosinophil % 0.9-7.0 [facility] Erythrocyte distribution wid th Auto (RBC) [Ratio]on 04-18-2024 Erythrocyte distribution width (RBC) [Ratio] Erythrocyte distribution width [Ratio] by Automated count 11.0-15.0 [facility] Hematocrit Auto (Bld) [Volum e fraction]on 04-18-2024 Hematocrit (Bld) [Volume fraction] Hematocrit [Volume Fraction] of Blood by Automated count 36.0-48.0 [facility] Hemoglobin [Mass/volume] in Bloodon 04-18-2024 Hemoglobin (Bld) [Mass/Vol] Hemoglobin [Mass/volume] in Blood 12.0-16.0 [facility] - Chemistry and C hemistry - challengeon 04-18-2024 Bilirubin Ql (U) Negative NEGATIVE [facility] Glucose (U) [Mass/Vol] Negative NEGATIVE [facility] Ketones Ql (U) Negative NEGATIVE [facility] pH (U) 6.5 [pH] 5.0-9.0 [facility] Specific gravity (U) [Rel density] 1.010 1.005-1.025 [facility] Urobilinogen Qn (U) 0.2 {Melissa'U}/dL 0.2-1.0 [facility] - Hematology and Cell countson 04-18-2024 Immature granulocytes/100 WBC (Bld) 0.3 % 0.0-0.5 [facility] - Specimen inform ationon 04-18-2024 Appearance (U) CLEAR CLEAR [facility] Color (U) LT. YELLOW YELLOW [facility] - Urinalysison Leukocyte esterase Test strip Ql (U) Negative NEGATIVE [facility] Mucus Ql (Urine sed) NONE SEEN NONE SEEN [facility] Nitrite Ql (U) Negative NEGATIVE [facility] Protein Ql (U) Negative NEG/TRACE [facility] Leukocytes [#/volume] correc kenneth for nucleated erythrocytes in Blood by Automated counon 04-18-2024 WBC corrected for nucl RBC Auto (Bld) [#/Vol] Leukocytes [#/volume] corrected for nucleated erythrocytes in Blood by Automated coun 4.0-11.0 [facility] Lymphocytes Auto (Bld) [#/Vo l]on 04-18-2024 Lymphocytes (Bld) [#/Vol] Lymphocytes [#/volume] in Blood by Automated count 1.2-3.8 [facility] Lymphocytes/100 WBC Auto (Bl d)on 04-18-2024 Lymphocytes/100 WBC (Bld) Lymphocytes/100 leukocytes in Blood by Automated count 20.5-60.0 [facility] MCH Auto (RBC) [Entitic mass ]on 04-18-2024 MCH (RBC) [Entitic mass] MCH [Entitic mass] by Automated count 26.7-34.0 [facility] MCHC Auto (RBC) [Mass/Vol]on 04-18-2024 MCHC (RBC) [Mass/Vol] MCHC [Mass/volume] by Automated count 29.9-35.2 [facility] MCV Auto (RBC) [Entitic vol] on 04-18-2024 MCV (RBC) [Entitic vol] MCV [Entitic vol ume] by Automated count 81.0-99.0 [facility] Monocytes Auto (Bld) [#/Vol] on 04-18-2024 Monocytes (Bld) [#/Vol] Automated blood monocyte count 0.3-0.8 [facility] Monocytes/100 WBC Auto (Bld) on 04-18-2024 Monocytes/100 WBC (Bld) Automated monocyte % 1. 7-12.0 [facility] Neutrophils Auto (Bld) [#/Vo l]on 04-18-2024 Neutrophils (Bld) [#/Vol] Neutrophils [#/volume] in Blood by Automated count 1.4-6.5 [facility] Neutrophils/100 WBC Auto (Bl d)on 04-18-2024 Neutrophils/100 WBC (Bld) Automated neutrophil % 43.0-75.0 [facility] No Panel Informationon 04-18 Eosinophils # (Auto) 0.3 10 3/uL 0.0-0.7 [facility] Immature Granulocyte # (Auto) 0.02 10 3/uL 0.00-0.03 [facility] Urine Bacteria TRACE #/HPF Abnormal NONE SEEN [facility] Urine Occult Blood MODERATE Abnormal NEGATIVE [facility] Urine Other Casts NONE SEEN #/LPF NONE SEEN [facility] Urine Other Crystals None Seen #/HPF None Seen [facility] Urine RBC NONE SEEN #/HPF 0-2 [facility] Urine Squamous Epithelial Cells FEW #/LPF Abnormal NONE/RARE [facility] Urine WBC NONE SEEN #/HPF NONE SEEN [facility] Platelet mean volume Auto (B ld) [Entitic vol]on 04-18-2024 Platelet mean volume (Bld) [Entitic vol] Platelet mean volume [Entitic volume] in Blood by Automated count Low 9.5-13.5 [facility] Platelets Auto (Bld) [#/Vol] on 04-18-2024 Platelets (Bld) [#/Vol] Platelets [#/vol ume] in Blood by Automated count 150-450 [facility] RBC Auto (Bld) [#/Vol]on RBC (Bld) [#/Vol] Erythrocytes [#/volume] in Blood by Automated count 4.20-5.40 [facility] Influenza virus B Ag [Presen ce] in Upper respiratory specimen by Rapid immunoassayon 04-14-2024 FLUBV Ag IA.rapid Ql (Nph) Influenza virus B Ag [Presence] in Upper respiratory specimen by Rapid immunoassay [facility] - Chemistry and C hemistry - challengeon 04-14-2024 Bilirubin Ql (U) Negative [facility] Glucose (U) [Mass/Vol] Negative [facility] Ketones Ql (U) Negative [facility] pH (U) 5.0 [pH] [facility] Specific gravity (U) [Rel density] 1.015 [facility] Urobilinogen (U) [Mass/Vol] 0.2 mg/dL [facility] - Specimen inform ationon 04-14-2024 Appearance (U) cloudy [facility] Color (U) darkyellow [facility] - Urinalysison Leukocyte esterase Test strip Ql (U) Negative [facility] Nitrite Ql (U) Negative [facility] Protein Ql (U) + [facility] No Panel Informationon 04-14 Influenza Type A (Rapid) Negative [facility] POC SARS CoV-2 Antigen Negative [facility] Urine Occult Blood 5-10 [facility] No Panel InformationOrdered By: Krishna Hernandez on 04-14-2024 Quick Strep (POC) [facility] PAP ACOG PANEL 2: 21 to 29on 08-28-2022 . . Normal [facility] Comment on above: Performed By: #### [id number] #### [facility] [address] [address] [address] Medina Menchaca Age Gdln ACOG Testing 21-29 Normal [facility] Comment on above: Performed By: #### 4 [id number] #### [facility] [address] [address] [address] Medina Menchaca DIAGNOSIS: Comment [facility] Comment on above: Result Comment: NEGA TIVE FOR INTRAEPITHELIAL LESION OR MALIGNANCY. Performed By: #### 4 [id number] #### [facility] [address] [address] [address] Medina Menchaca Methodology: Comment [facility] Comment on above: Result Comment: This liquid based ThinPrep(R) pap test was screened with the use of an image guided system. Performed By: #### 4 [id number] #### [facility] [address] [place] [address] Dr. Medina Menchaca Note: Comment Normal [facility] Comment on above: Result Comment: The Pap smear is a screening test designed to aid in the detection of premalignant and malignant conditions of the uterine cervix. It is not a diagnostic procedure and should not be used as the sole means of detecting cervical cancer. Both false-positive and false-negative reports do occur. . Performed By: #### 4 [id number] #### [facility] [address] [place] [address] Dr. Medina Menchaca Performed by: Comment Normal [facility] Comment on above: Result Comment: Ernie [employer] (ASCP) Performed By: #### 4 [id number] #### [facility] [address] [place] [address] Dr. Medina Menchaca Reflex Criteria: Comment Normal [facility] Comment on above: Result Comment: The HPV DNA reflex criteria were not met with this specimen result therefore, no HPV testing was performed. . Performed By: #### 4 [id number] #### [facility] [address] [place] [address] Dr. Medina Menchaca Specimen adequacy: Comment Normal [facility] Comment on above: Result Comment: Sati sfactory for evaluation. No endocervical component is identified. Performed By: #### [id number] #### [facility] [address] [place] [address] Dr. Medina Menchaca CULTURE URINEon 03-06-2022 CULTURE [...] F Trimethoprim/Sulfame thoxazole <=20 S F Normal [facility] Comment on above: Performed By: #### U RCX #### [facility] [address] [place] [address] Dr. Medina Menchaca CBC AUTO DIFFon 03-03-2022 BASO # 0.0 103/ul Normal 0.0-0.1 [facility] Comment on above: Performed By: #### C BC #### [facility] [address] [place] [address] Dr. Medina Menchaca Basophils/100 WBC (Bld) 0.2 % Normal 0.2-2.0 [facility] Comment on above: Performed By: #### C BC #### [facility] [address] [place] [address] Dr. Medina Menchaca EO # 0.1 103/ul Normal 0.0-0.7 [facility] Comment on above: Performed By: #### C BC #### [facility] [address] [place] [address] Dr. Medina Menchaca Eosinophils/100 WBC (Bld) 1.2 % Normal 0.9-7.0 [facility] Comment on above: Performed By: #### C BC #### [facility] [address] [place] [address] Dr. Medina Menchaca Erythrocyte distribution width (RBC) [Ratio] 12.5 % Normal 11.0-15.0 [facility] Comment on above: Performed By: #### C BC #### [facility] [address] [place] [address] Dr. Medina Menchaca Hematocrit (Bld) [Volume fraction] 41.5 % Normal 36.0-48.0 [facility] Comment on above: Performed By: #### C BC #### [facility] [address] [place] [address] Dr. Medina Menchaca Hemoglobin (Bld) [Mass/Vol] 13.8 g/dL Normal 12.0-16.0 [facility] Comment on above: Performed By: #### C BC #### [facility] [address] [place] [address] Dr. Medina Menchaca IG # 0.03 10e3/ul Normal 0.00-0.03 [facility] Comment on above: Performed By: #### C BC #### [facility] [address] [place] [address] Dr. Medina Menchaca IG % 0.3 % Normal 0.0-0.5 [facility] Comment on above: Performed By: #### C BC #### [facility] [address] [place] [address] Dr. Medina Menchaca LYMPH # 2.2 103/ul Normal 1.2-3.8 [facility] Comment on above: Performed By: #### C BC #### [facility] [address] [place] [address] Dr. Medina Menchaca Lymphocytes/100 WBC (Bld) 24.4 % Normal 20.5-60.0 [facility] Comment on above: Performed By: #### C BC #### [facility] [address] [place] [address] Dr. Medina Menchaca MANUAL DIFF REQ NO Normal [facility] Comment on above: Performed By: #### C BC #### [facility] [address] [place] [address] Dr. Medina Menchaca MCH (RBC) [Entitic mass] 30.5 pg Normal 26.7-34.0 [facility] Comment on above: Performed By: #### C BC #### [facility] [address] [place] [address] Dr. Medina Menchaca MCHC (RBC) [Mass/Vol] 33.3 g/dL Normal 29.9-35.2 [facility] Comment on above: Performed By: #### C BC #### [facility] [address] [place] [address] Dr. Medina Menchaca MCV (RBC) [Entitic vol] 91.6 fL Normal 81.0-99.0 [facility] Comment on above: Performed By: #### C BC #### [facility] [address] [place] [address] Dr. Medina Menchaca MONO # 0.4 103/ul Normal 0.3-0.8 [facility] Comment on above: Performed By: #### C BC #### [facility] [address] [place] [address] Dr. Medina Menchaca Monocytes/100 WBC (Bld) 4.4 % Normal 1.7-12.0 [facility] Comment on above: Performed By: #### C BC #### [facility] [address] [place] [address] Dr. Medina Menchaca NEUT # 6.2 103/ul Normal 1.4-6.5 [facility] Comment on above: Performed By: #### C BC #### [facility] [address] [place] [address] Dr. Medina Menchaca Neutrophils/100 WBC (Bld) 69.5 % Normal 43.0-75.0 [facility] Comment on above: Performed By: #### C BC #### [facility] [address] [place] [address] Dr. Medina Menchaca Platelet mean volume (Bld) [Entitic vol] 10.6 fL Normal 9.5-13.5 [facility] Comment on above: Performed By: #### C BC #### [facility] [address] [place] [address] Dr. Medina Menchaca PLT 197 103/ul Normal 150-[address] [facility] Comment on above: Performed By: #### C BC #### [facility] [address] [place] [address] Dr. Medina Menchaca RBC 4.53 106/ul Normal 4.20-5.[address] [facility] Comment on above: Performed By: #### C BC #### [facility] [address] [place] [address] Dr. Medina Menchaca WBC 8.9 103/ul Normal 4.0-11.0 [facility] Comment on above: Performed By: #### C BC #### [facility] [address] [address] [address] ABD/PELV W CONon 03-03-[address] ABD/PELV W CON EXAMINATION: CT ABD/PELV [...] ROGELIO FUCHS Date: 2022-03-03 20:[address] [facility] ER URINE PROFILEon 2 Bilirubin Ql (U) Negative Normal NEGATIVE [facility] Comment on above: Performed By: #### U MICRO, PREGU, ERUR #### [facility] [address] [address] [address] Medina Menchaca Clarity (U) CLEAR Normal CLEAR [facility] Comment on above: Performed By: #### U MICRO, PREGU, ERUR #### [facility] [address] [address] [address] Medina Menchaca Color (U) LT. YELLOW Normal YELLOW [facility] Comment on above: Performed By: #### U MICRO, PREGU, ERUR #### [facility] [address] [address] [address] Medina DOMINIQUE A micrscopic examination will be performed if indicated. Normal [facility] Comment on above: Performed By: #### U MICRO, PREGU, ERUR #### [facility] [address] [address] [address] Medina Menchaca Glucose Ql (U) Negative Normal NEGATIVE The [facility] Comment on above: Performed By: #### U MICRO, PREGU, ERUR #### [facility] [address] [address] [address] Medina Menchaca Hemoglobin Ql (U) TRACE-INTACT Abnormal NEGATIVE [facility] Comment on above: Performed By: #### U MICRO, PREGU, ERUR #### [facility] [address] [place] [address] Dr. Medina Menchaca Ketones Ql (U) Negative Normal NEGATIVE [facility] Comment on above: Performed By: #### U MICRO, PREGU, ERUR #### [facility] [address] [address] [address] Medina Menchaca LEUKOCYTES TRACE Abnormal NEGATIVE [facility] Comment on above: Performed By: #### U MICRO, PREGU, ERUR #### [facility] [address] [address] [address] Medina Menchaca Nitrite Ql (U) Negative Normal NEGATIVE [facility] Comment on above: Performed By: #### U MICRO, PREGU, ERUR #### [facility] [address] [address] [address] Medina Menchaca pH (U) 6.0 [pH] Normal 5-[address] [facility] Comment on above: Performed By: #### U MICRO, PREGU, ERUR #### [facility] [address] [address] [address] Medina Menchaca SPEC GRAVITY 1.020 Normal 1.005-<=1.025 The [facility] Comment on above: Performed By: #### U MICRO, PREGU, ERUR #### [facility] [address] [address] [address] Medina Menchaca UA PROTEIN Negative Normal NEGATIVE/ TRACE [facility] Comment on above: Performed By: #### U MICRO, PREGU, ERUR #### [facility] [address] [address] [address] Medina Menchaca UR MICRO IND INDICATED Normal [facility] Comment on above: Performed By: #### U MICRO, PREGU, ERUR #### [facility] [address] [place] [address] Dr. Medina Menchaca Urobilinogen Qn (U) 1.0 {Melissa'U}/dL Normal 0.2 - 1. 0 [facility] Comment on above: Performed By: #### U MICRO, PREGU, ERUR #### [facility] [address] [place] [address] Dr. Medina Menchaca LIPASEon 03-03-2022 Lipase [Catalytic activity/Vol] 116.0 U/L Normal 73.0-393.0 [facility] Comment on above: Performed By: #### L IPA, CMP #### [facility] [address] [place] [address] Dr. Medina Menchaca URon 03-03-2022 , QUAL Negative Normal NEGATIVE [facility] Comment on above: Performed By: #### U MICRO, PREGU, ERUR #### [facility] [address] [place] [address] Dr. Medina Menchaca PROF 14(COMP METB)on 022 Albumin [Mass/Vol] 3.7 g/dL Normal 3.4-5.0 [facility] Comment on above: Performed By: #### L IPA, CMP #### [facility] [address] [place] [address] Dr. Medina Menchaca Albumin/Globulin [Mass ratio] 1.1 {ratio} Normal [facility] Comment on above: Performed By: #### L IPA, CMP #### [facility] [address] [place] [address] Dr. Medina Menchaca ALP [Catalytic activity/Vol] 117 U/L Critically high 46-116 [facility] Comment on above: Performed By: #### L IPA, CMP #### [facility] [address] [address] [address] Medina Menchaca ALT [Catalytic activity/Vol] 68 U/L Critically high 14-59 [facility] Comment on above: Performed By: #### L IPA, CMP #### [facility] [address] [address] [address] Meidna Menchaca Anion gap [Moles/Vol] 9.0 mmol/L Normal [facility] Comment on above: Performed By: #### L IPA, CMP #### [facility] [address] [address] [address] Medina Menchaca AST [Catalytic activity/Vol] 31 U/L Normal 15-37 [facility] Comment on above: Performed By: #### L IPA, CMP #### [facility] [address] [place] [address] Dr. Medina Menchaca Bilirubin [Mass/Vol] 0.6 mg/dL Normal 0.2-1.0 [facility] Comment on above: Performed By: #### L IPA, CMP #### [facility] [address] [address] [address] Medina Menchaca Calcium [Mass/Vol] 8.7 mg/dL Normal 8.5-10.1 [facility] Comment on above: Performed By: #### L IPA, CMP #### [facility] [address] [address] [address] Medina Menchaca Chloride [Moles/Vol] 103 mmol/L Normal 98-107 [facility] Comment on above: Performed By: #### L IPA, CMP #### [facility] [address] [address] [address] Medina Menchaca CO2 [Moles/Vol] 27.6 mmol/L Normal 21.0-32.0 [facility] Comment on above: Performed By: #### L IPA, CMP #### [facility] [address] [address] [address] Medina Menchaca Creatinine [Mass/Vol] 0.72 mg/dL Normal 0.55-1.02 [facility] Comment on above: Performed By: #### L IPA, CMP #### [facility] [address] [address] [address] Medina Menchaca EGFR-AF BURUNDIAN >60 Normal >=60 [facility] Comment on above: Performed By: #### L IPA, CMP #### [facility] [address] [address] [address] Medina Menchaca EGFR-NON AF BURUNDIAN >60 Normal >=60 [facility] Comment on above: Performed By: #### L IPA, CMP #### [facility] [address] [address] [address] Medina Menchaca Globulin (S) [Mass/Vol] 3.4 g/dL Normal [facility] Comment on above: Performed By: #### L IPA, CMP #### [facility] [address] [address] [address] Medina Menchaca Glucose [Mass/Vol] 87 mg/dL Normal 74-106 [facility] Comment on above: Performed By: #### L IPA, CMP #### [facility] [address] [address] [address] Medina Menchaca Potassium [Moles/Vol] 3.6 mmol/L Normal 3.5-5.1 [facility] Comment on above: Performed By: #### L IPA, CMP #### [facility] [address] [address] [address] Medina Menchaca Protein [Mass/Vol] 7.1 g/dL Normal 6.4-8.2 [facility] Comment on above: Performed By: #### L IPA, CMP #### [facility] [address] [address] [address] Medina Menchaca Sodium [Moles/Vol] 136 mmol/L Normal 136-145 [facility] Comment on above: Performed By: #### L IPA, CMP #### [facility] [address] [address] [address] Medina Menchaca Urea nitrogen [Mass/Vol] 8.0 mg/dL Normal 7.0-18.0 [facility] Comment on above: Performed By: #### L IPA, CMP #### [facility] [address] [address] [address] Medina Menchaca Urea nitrogen/Creatinine [Mass ratio] 11.1 mg/mg Normal [facility] Comment on above: Performed By: #### L IPA, CMP #### [facility] [address] [address] [address] Medina Menchaca URINE MICROSCOPIC ONLYon BACTERIA TRACE Abnormal NONE SEEN [facility] Comment on above: Performed By: #### U MICRO, PREGU, ERUR #### [facility] [address] [place] [address] Dr. Medina Menchaca Bacteria identified Cx Nom (U) INDICATED Normal [facility] Comment on above: Performed By: #### U MICRO, PREGU, ERUR #### [facility] [address] [place] [address] Dr. Medina Menchaca CAST NONE SEEN Normal NONE SEEN [facility] Comment on above: Performed By: #### U MICRO, PREGU, ERUR #### [facility] [address] [place] [address] Dr. Medina Menchaca Crystals LM Nom (Urine sed) NONE SEEN Normal NONE SEEN [facility] Comment on above: Performed By: #### U MICRO, PREGU, ERUR #### [facility] [address] [place] [address] Dr. Medina Menchaca Epithelial cells LM Ql (Urine sed) RARE Normal NONE SEEN /RARE [facility] Comment on above: Performed By: #### U MICRO, PREGU, ERUR #### [facility] [address] [place] [address] Dr. Medina eMnchaca MUCOUS NONE SEEN Normal NONE SEEN [facility] Comment on above: Performed By: #### U MICRO, PREGU, ERUR #### [facility] [address] [place] [address] Dr. Medina Menchaca RBC 0-2 Normal 0-[address] [facility] Comment on above: Performed By: #### U MICRO, PREGU, ERUR #### [facility] [address] [place] [address] Dr. Medina Menchaca WBC 2-5 Abnormal NONE SEEN [facility] Comment on above: Performed By: #### U MICRO, PREGU, ERUR #### [facility] [address] [place], [place] [address] Dr. Medina Menchaca Covid-19 PCR ([facility])on 09-08 SARS-CoV-2 (COVID-19) RNA TRAY+probe Ql (Unsp spec) Not detected Normal NOT DETECTED [facility] Comment on above: Result Comment: This test is not yet approved or cleared by the [place] FDA. When there are no FDA-approved or cleared tests available, and other criteria are met, FDA can make tests available under an emergency access mechanism called an Emergency Use Authorization (EUA). The EUA for this test is supported by the [place] of Health and Human Service's (HHS's) declaration [...] consistent with SARS-CoV-2. Performed By: #### [facility] #### [facility] [address] [place], [place] [address] Dr. Medina Menchaca Vital Signs Date Time Vital Sign Value Performing Clinician Facility 12-02-2024 14:040 Body height 162.56 cm [employer] DO Work Phone: [facility] 12-02-2024 14:31-040 Body mass index (BMI) [Ratio] 39.5 kg/m2 [employer] DO Work Phone: [facility] 12-02-2024 14:31040 Body weight 104.43 kg [employer] DO Work Phone: [facility] 12-02-2024 14:31-040 Diastolic blood pressure 84 mm[Hg] Krishna Ball DO Work Phone: [facility] 12-02-2024 14:31-0400 Heart rate 88 /min Krishna Ball DO Work Phone: [facility] 12-02-2024 14:31-0400 Respiratory rate 12 /min Krishna Ball DO Work Phone: [facility] 12-02-2024 14:31-0400 Systolic blood pressure 127 mm[Hg] Krishna Ball DO Work Phone: [facility] 07-26-2024 13:58-0400 Body weight 101.21 kg Jeremy Aysha DO Work Phone: [facility] 07-26-2024 13:58-0400 Diastolic blood pressure 70 mm[Hg] Jeremy Aysha DO Work Phone: [facility] 07-26-2024 13:58-0400 Systolic blood pressure 116 mm[Hg] Jeremy Aysha DO Work Phone: [facility] 07-08-2024 14:39-0500 Body height 162.56 cm [facility] 07-08-2024 14:39-0500 Body mass index (BMI) [Ratio] 38.6 kg/m2 [facility] 07-08-2024 14:39-0500 Body weight 102.17 kg [facility] 07-08-2024 14:39-0500 Diastolic blood pressure 100 mm[Hg] [facility] 07-08-2024 14:39-0500 Heart rate 87 /min [facility] 07-08-2024 14:39-0500 Respiratory rate 12 /min [facility] 07-08-2024 14:39-0500 SaO2% (BldA) [Mass fraction] 98 % [facility] 07-08-2024 14:39-0500 Systolic blood pressure 136 mm[Hg] [facility] 07-16-2022 14:00-0500 Body height 167.64 cm Krishna Ball Other [employer] Other 07-16-2022 14:00-0500 Body mass index (BMI) [Ratio] 36.54 kg/m2 Krishna Hernandez Other [employer] Other 07-16-2022 14:00-0500 Body weight 102.7 kg Krishna Hernandez Other [place] [employer] Other 07-16-2022 14:00-0500 Diastolic blood pressure 86 mm[Hg] Krishna Hernandez Other [place] [employer] Other 07-16-2022 14:00-0500 Respiratory rate 12 /min Krishna Hernandez Other [place] [employer] Other 07-16-2022 14:00-0500 Systolic blood pressure 122 mm[Hg] Krishna Hernandez Other [facility] [employer] Other Encounters Encounter Date Encounter Type Care Provider Facility Start: 12-07-2024 End: 12-07-2024 ambulatory Krishna Hernandez Facility:[facility] Start: 12-07-2024 Non-patient / Non-visit [facility] [employer] Work Phone: Start: 12-02-2024 End: 12-02-2024 ambulatory Krishna Hernandez DO Work Phone: [facility] Work Phone: Start: 12-02-2024 End: 12-02-2024 Patient encounter procedure Krishna Hernandez DO [facility] Work Phone: Start: 08-12-2024 End: 08-12-2024 Clinisync Result Encounter Jeremy Aysha DO Work Phone: [facility] Unsolicited Start: 08-12-2024 End: 08-12-2024 Clinisync Result Encounter Jeremy Aysha DO Work Phone: [facility] Unsolicited Start: 08-08-2024 End: 08-08-2024 ambulatory Krishna Hernandez [facility] Work Phone: Start: 08-08-2024 End: 08-08-2024 Departed Referred Krishna Hernandez DO Work Phone: [facility] Start: 08-08-2024 Non-patient / Non-visit Eloisa in David DO Work Phone: [facility] Work Phone: Start: 07-26-2024 End: 07-26-2024 ambulatory JEREMY AYSHA Not Available Start: 07-26-2024 End: 07-26-2024 Office outpatient visit 15 minutes Jeremy Aysha DO Work Phone: [facility] Comment on above: Encounter for IUD re moval; Encounter for IUD insertion; Pelvic cramping; Presence of intrauterine contraceptive device (IUD) Start: 07-26-2024 End: 07-26-2024 ambulatory JEREMY AYSHA Not Available Start: 07-08-2024 End: 07-08-2024 ambulatory [facility] Work Phone: Start: 07-08-2024 End: 07-08-2024 Patient encounter procedure [facility] Work Phone: Start: 06-30-2024 End: 06-30-2024 Emergency department patient visit [facility] Start: 06-25-2024 End: 06-28-2024 ambulatory [facility] Start: 06-23-2024 End: 06-23-2024 ambulatory [facility] Work Phone: Start: 06-23-2024 End: 06-23-2024 Patient encounter procedure [facility] Work Phone: Start: 04-28-2024 Non-patient / Non-visit [facility] Work Phone: Start: 04-26-2024 End: 04-26-2024 Emergency department patient visit [facility] Start: 04-18-2024 Non-patient / Non-visit [facility] Work Phone: Start: 04-14-2024 End: 04-14-2024 Patient encounter procedure [facility] Work Phone: Start: 09-17-2023 End: 09-17-2023 ambulatory JEREMY AYSHA Not Available Start: 09-09-2023 End: 09-09-2023 ambulatory JEREMY AYSHA Not Available Start: 09-02-2023 End: 09-02-2023 ambulatory JEREMY AYSHA Not Available Start: 08-31-2023 End: 08-31-2023 ambulatory MD Susan Aparicio Work Phone: [facility] Work Phone: Start: 08-31-2023 End: 08-31-2023 Departed Referred MD Susan Aparicio Work Phone: [facility] Start: 08-31-2023 End: 08-31-2023 ambulatory JEREMY AYSHA Not Available Start: 01-29-2023 End: 01-29-2023 ambulatory Krishna Hernandez Other [employer] Other Start: 01-29-2023 Office outpatient vi sit 15 minutes Krishna Hernandez [facility] Start: 01-13-2023 End: 01-13-2023 ambulatory Susan Aparicio Other [employer] Other Start: 01-13-2023 Telephone encounter Susan Aparicio [facility] Start: 12-30-2022 End: 12-30-2022 ambulatory Krishna Hernandez Other [employer] Other Start: 12-30-2022 Telephone encounter Krishna Hernandez [facility] Start: 08-20-2022 End: 08-20-[address] DARIO HEAD . Facility: Start: 08-19-2022 End: 08-19-2022 ambulatory Krishna Hernandez Other [employer] Other Start: 08-19-2022 Telephone encounter Krishna Hernandez [facility] Start: 07-28-2022 ([facility]) [facility] Scheduled Krishna Hernandez [facility] Start: 07-28-2022 End: 07-28-2022 ambulatory Krishna Hernandez Other [employer] Other Start: 07-16-2022 End: 07-16-2022 ambulatory Krishna Hernandez Other [employer] Other Start: 07-16-2022 Office outpatient vi sit 15 minutes Krishna Hernandez [facility] Start: 03-03-2022 End: 03-04-[address] KRISHNA HERNANDEZ Facility:[facility] Start: 09-25-2021 End: 09-25-[address] SUSAN APARICIO Facility:[facility] Start: 09-04-2021 Gynecological examination abnormal Krishna Hernandez Other [employer] Other Start: 04-09-2017 End: 04-10-2017 Ambulatory DEFAULT PHYSICIAN Facility:[facility] Procedures Date Procedure Procedure Detail Performing Clinician Start: 08-12-2024 ALL CBC WITH AUTO DIFF Jeremy Vuo DO Work Phone: Start: 07-26-2024 IUD REMOVAL Jeremy riddle DO Work Phone: Start: 04-14-2024 Quick Strep (POC) screening Krishna Hernandez Other screening Krishna Hernandez Other Contraception care education Krishna Hernandez Other Diabetes mellitus screening Krishna Hernandez Other Insertion of intraut erine contraceptive device Krishna Hernandez Other End: 05-06-2016 visit Krishna Hernandez Other Plan of Treatment Date Care Activity Detail Author Start: 12-07-2024 Urine culture [facility] Start: 08-08-2024 Bacteria identified in Urine by Culture Urine Culture [facility] Start: 08-08-2024 Urine culture [facility] Start: 07-26-2024 End: 07-26-2025 XR Abdomen Single view XR abdomen 1 view Imaging Routine Pelvic cramping Presence of intrauterine contraceptive device (IUD) Expected: 07/26/2024, Expires: 07/26/2025 [facility] Work Phone: Comment on above: Expected: 07/26/2024 , Expires: 07/26/2025 Comprehensive metabo lic 2000 panel - Serum or Plasma [facility] Urine culture [facility] Payers Date Payer Category Payer Self-pay [id number] 2023 [facility] .[id number] 2023 Unknown [id number] 1995 [id number] 1995 Unknown [id number] [id number]. 593 1995 Unknown [id number] 2.16.840.1.895292.3.579.2. 593 1995 Unknown [id number] 2.16.840.1.237515.3.579.2. 1286 1995 Unknown [id number] 2.16.840.1.627815.3.579.2. 1286 1995 Unknown [id number] 2.16.840.1.317093.3.579.2. 1286 1995 Unknown [id number] 2.16.840.1.521775.3.579.2. 9 1995 Unknown [id number] 2.16.840.1.388070.3.579.2. 9 1995 Unknown [id number] 2.16.840.1.561903.3.579.2. 9 1995 Unknown [id number] 2.16.840.1.843241.3.579.2. 9 1995 Unknown [id number] 2.16.840.1.101798.3.579.2. 9 1995 Unknown [id number] 2.16.840.1.429618.3.579.2. 9 1959 Unknown [id number] 2.16.840.1.088047.19 1959 Unknown [id number] Unknown Unknown [facility] [id number] Unknown [id number] 2.16.840.1.479209.3.579.2. 531 Unknown [id number] 2.16.840.1.177738.3.579.2. 531 Social History Date Type Detail Facility Sex Assigned At [facility] Other Start: 01-29-2023 End: 01-29-2023 Tobacco smoking status VAIS Smoker (finding) [facility] Start: 1995 Sex Assigned At Female [facility] Start: 06-23-2024 End: 08-09-2024 Sex Female (finding) [facility] Tobacco smoking stat us VAIS Tobacco smoking consumption unknown [facility] Start: 08-28-2023 Gender identity Identifies as female gender (finding) [facility] Start: 08-28-2023 Sexual orientation Heterosexual (finding) [facility] Start: 01-29-2023 Tobacco smoking status NHIS Smokes tobacco daily (finding) [facility] Clinical Notes 07-16-2022 to 12-02-2024 Note Date & Type Note Facility 12-02-2024 Evaluation note Diagnosis Onset Date Resolution Acute bronchitis due to other specified organisms acute December 02, 2024 2:19pm Fatigue noneactive December 02 2:19pm Cough noneactive December 02 2:19pm [facility] Work Phone: 1(683) 534-834303-18-2025 History of Present illness Narrative* Gladis Almanza, CORRECTION LIEUTENANT - 07/26/2024 1:30 PM EDTAssociated Order(s): IUD Removal Post-Procedure Diagnose(s): Encounter for IUD removal Reason for Appointment: Patient ID: Mayra Camarena is a 29 y.o. female who presents for IUD removal/insertion Patient presents today for a IUD Insertion and IUD Removal appointment. MEDICATIONS Current Outpatient Medications Medication Instructions ibuprofen 800 mg, Every 8 hours PRN Levonorgestrel (Mirena, 52 MG,) 20 MCG/DAY intrauterine device Mirena ALLERGIES Allergies Allergen Reactions Doxycycline GI intolerance SURGICAL HISTORY Past Surgical History: Procedure Laterality Date IR LUMBAR PUNCTURE 03/21/2017 IR LUMBAR PUNCTURE 03/21/2017 REVIEW OF SYSTEMS Review of Systems: Review of Systems Constitutional: Negative. HENT: Negative. Eyes: Negative. Respiratory: Negative. Cardiovascular: Negative. Gastrointestinal: Negative. Genitourinary: Negative. Musculoskeletal: Negative. Skin: Negative. Neurological: Negative. All other systems reviewed and are negative. Hematological: Negative. Endocrine: Negative. Allergic/Immunologic: Negative. OBJECTIVE Objective: Physical Exam Constitutional: Appearance: Normal appearance. She is well-developed. Genitourinary: Vulva normal. Cardiovascular: Rate and Rhythm: Normal rate and regular rhythm. Pulmonary: Effort: Pulmonary effort is normal. Breath sounds: Normal breath sounds. Abdominal: General: Bowel sounds are normal. There is no distension. Palpations: Abdomen is soft. Tenderness: There is no abdominal tenderness. There is no guarding or rebound. Musculoskeletal: General: No swelling. Normal range of motion. Right lower leg: No edema. Left lower leg: No edema. Neurological: Mental Status: She is alert and oriented to person, place, and time. Skin: General: Skin is warm and dry. Psychiatric: Mood and Affect: Mood normal. Behavior: Behavior normal. Vitals and nursing note reviewed. Exam conducted with a consumer affairs director present. Vitals: There is no height or weight on file to calculate BMI. BP: 116/70 No LMP recorded. (Menstrual status: No Periods). ASSESSMENT & PLAN Assessment/Plan Encounter Diagnosis: ICD-10-CM 1. Encounter for IUD removal Z30.432 2. Encounter for IUD insertion Z30.430 Levonorgestrel intrauterine device 52 mg POCT , urine manually resulted CANCELED: IUD Insertion IUD Removal Date/Time: 07/26/2024 2:33 PM Performed by: Jeremy Olmstead DO Authorized by: Jeremy Olmstead DO Consent: Consent obtained: Written Consent given by: Patient Procedure risks and benefits discussed: yes Patient questions answered: yes Patient agrees, verbalizes understanding, and wants to proceed: yes Educational handouts given: yes Instructions and paperwork completed: yes Roann protocol: Patient states understanding of procedure being performed: yes Relevant documents present and verified: yes Test results available and properly labeled: yes Imaging studies available: yes Required blood products, implants, devices, and special equipment available: yes Site marked: yes Procedure: Removed with no complications: no Removal due to mechanical complications of IUD: no Removal due to infection and inflammatory reaction: no Comments: IUD Removal: Patient presents today for removal of IUD. Written consent was obtained and patient was placed in dorsal lithotomy position with feet in stirrups. A sterile speculum was inserted into the vagina and the cervix was visualized. IUD was unable to be removed. Pt to be scheduled for surgery. Pt given pelvic ultrasound. KUB ordered to view for placement Documented by Gladis Almanza LPN on behalf of: Jeremy Olmstead DO documented in this encounterKindred [id number] Evaluation note* Diagnosis Onset Date Resolution Status Admit Date Hematuria acute June 23, 2024 11:30am Acute sinusitis noneactive June 23, 2024 11:30am Dysuria noneactive June 23, 2024 11:30am Elevated BP without diagnosi s of hypertension acute July 08 2:31pm Elevated transaminase level acute July 08, 2024 2:31pm Hematuria acute July 08, 2024 2:31pm Obesity acute July 08, 2024 2:31pm Submandibular lymphadenopathy noneac tive July 08, 2024 2:31pm Odynophagia noneactive June 2:31pm Strep throat noneactive June 2:31pm [facility] Work Phone: 1(140) 325-155312-05-2024 Evaluation note* Diagnosis Onset Date Resolution Status Admit Date Acute bronchitis due to other specified organisms acute Decemb er 2023 9:39am Hematuria acute April 14, 2024 9:39am Nausea & vomiting acute Decembe r 2023 9:39am Hematuria acute June 23, 2024 11:30am Acute sinusitis noneactive June 23, 2024 11:30am Dysuria noneactive June 23, 2024 11:30am [facility] Work Phone: 1(909) 362-855312-05-2024 Evaluation note* Diagnosis Onset Date Resolution Status Admit Date Acute bronchitis due to othe r specified organisms acute April 9:39am Hematuria acute April 14, 2024 9:39am Nausea & vomiting acute Decembe r 2023 9:39am Hematuria acute June 23, 2024 11:30am Acute sinusitis noneactive June 23, 2024 11:30am Dysuria noneactive June 23, 2024 11:30am Elevated transaminase level acute July 08, 2024 2:31pm Hematuria acute July 08, 2024 2:31pm Submandibular lymphadenopathy noneac tive July 08, 2024 2:31pm Odynophagia noneactive June 2:31pm Elevated liver enzymes noneactive [facility] 2024 2:31pm Strep throat noneactive June 2:31pm [facility] Work Phone: 1(850) 724-110509-21-2023 Evaluation note* Encounter Date Diagnosis Assessment Notes Treatment Notes Treatment Clinical Notes Jan, Acute non-recurrent maxillary sinusitis (ICD-10 [...] and cancers. May result in prolonged coughing [facility] Other 04-11-2023 Evaluation note* Encounter Date Diagnosis Assessment Notes Treatment Notes Treatment Clinical Notes Aug, Acute bronchitis due to other specified organisms (ICD-10 - J20.8) [facility] Other 03-20-2023 Evaluation note* Encounter Date Diagnosis Assessment Notes Treatment Notes Treatment Clinical Notes Jul, Acute non-recurrent maxillary sinusitis (ICD-10 - J01.00) Instructed to use Robitussin or Mucinex for cough, saline or Flonase NS for congestion, Tylenol for pain and fever. [facility] Other 03-08-2023 Evaluation note* Encounter Date Diagnosis Assessment Notes Treatment Notes Treatment Clinical Notes Jul, Obesity (BMI 30-39.9) (ICD-10 - [...] Z86.59) Initiate counseling for anxiety and depression [facility] Other Evaluation noteNo InformationNort [employer] Other Evaluation noteNo assessment information available [facility] Work Phone: Evaluation note* Diagnosis Encounter for IUD removal Encounter for IUD insertion Insertion of intrauterine contraceptive device Pelvic cramping Presence of intrauterine contraceptive device (IUD) Presence of intrauterine contraceptive device Encounter for IUD removal documented [facility] - Reported* Type Description Date Medical History Abdominal discomfort in right lo wer quadrant Medical History Acute left-sided low back pain w ith left-sided sciatica Medical History Pain, female pelvic Medical History Bronchitis Medical History Chronic depression Medical History Acute URI Medical History Contact dermatitis Medical History COVID Medical History Bruising Medical History Frequent headaches Medical History Wheezing Surgical History T&A Surgical History SECTION 2016 Surgical History SECTION 2017 Hospitalization History See past surgical hx [facility] Other Reason for referral (narrative)No reason for referral information availableDayton [facility] Work Phone: Summary Purpose Family History No Family History [...] pm Cough December 02, 2024 2:19 pm Chief Complaint Admit Date sore throat/swollen glands December 02 2:19pm Chief Complaint Admit Date Headache/Sore Throat June 23, 2024 11:30am ER follow up July 08, 2024 2:31pm Unknown August 08, 2024 11: 26am Reason for Visit Admit Date Hematuria June 23, 2024 11:30am Acute sinusitis June 23, 2024 11:30am Dysuria June 23, 2024 11:30am Elevated BP without diagnosis of hyperte nsion July 08, 2024 2:31pm Elevated transaminase level June 2:31pm Hematuria July 08, 2024 2:31pm Obesity July 08, 2024 2:31pm Submandibular lymphadenopathy June 122024 2:31pm Odynophagia July 08, 2024 2:31pm Strep throat July 08, 2024 2:31pm Chief Complaint Admit Date fever, sore throat, [...] section and content) DATE CREATED AUTHOR 11/03/2017 [facility] DATE CREATED AUTHOR AUTHOR'S ORGANIZ ATION [facility]/10/2022 [facility] DATE CREATED AUTHOR AUTHOR'S ORGANIZ ATION 07/02/2024 [facility] DATE CREATED AUTHOR AUTHOR'S ORGANIZ ATION 07/28/2024 [facility] EPIC DATE CREATED AUTHOR AUTHOR'S ORGANIZ ATION 12/10/2024 [facility] REASON FOR VISIT (unrecogniz ed section and content) Reason Comments IUD removal/insertion Care Teams (unrecognized sec tion and content) Team Status: Active Member Role Status Dates Susan Aparicio MD Primary Care Provider Active Team Status: Inactive Member Role Status Dates Susan Aparicio MD Primary Care Provider Active Start: August 31, 2023 End: August 31, 2023 Jeremy Olmstead Attending Provider Active Start: 2023 End: August [...] Team Status: Inactive Member Role Status Dates Krsihna Hernandez DO Primary Care Provide r, Attending Provider Active Start: July 08, 2024 End: July 08, 2024 Customer Support Agent Relationship Specialty Start Date End Date Krishna Hernandez MD [address] [place] [address] PCP - General Internal Medicine 08/10/23 Team Status: Active Member Role Status Dates Krishna Hernandez DO Primary Care Provide r, Attending Provider Active Start: August 08, 2024 Team Status: Inactive Member Role Status Dates Krishna Hernandez DO Attending Provider Active Sta rt: August 08, 2024 End: August 08, 2024 Customer Support Agent Relationship Specialty Start Date End Date Krishna Hernandez MD [address] [place] [address] PCP - General Internal Medicine 08/10/23 Team Status: Inactive Member Role Status Dates Krishna Hernandez DO Primary Care Provider Active Start: December 02, 2024 End: December 02, 2024 Krishna Hernandez DO Attending Provider Active Sta rt: December 02, 2024 End: December 02, 2024 Team Status: Active Member Role Status Dates Krishna Hernandez DO Primary Care Provider Active Start: December 07, 2024 Krishna Hernandez DO Attending Provider Active Sta rt: December 07, 2024 Goals (unrecognized section and content) Goals [...] BE BASED ON THE PRIMARY CLINICAL RECORDS. [facility]. provides no warranty or guarantee of the accuracy or completeness of information in this document.
[2024-12-21 09:47] LABS: Hematocrit 41.1 % (36.0-48.0); Hemoglobin 14.0 g/dL (12.0-16.0); Immature Granulocytes Abs Auto 0.04 10^3/uL (0.00-0.03); Immature Granulocytes Pct Auto 0.4 % (0.0-0.5); Lymphocytes Absolute Auto 2.7 10^3/uL (1.2-3.8); Mean Corpuscular HGB Conc 34.1 g/dL (29.9-35.2); Mean Corpuscular Hemoglobin 30.5 pg (26.7-34.0); Mean Corpuscular Volume 89.5 fL (81.0-99.0); Platelet Count 343 10^3/uL (150-450); Red Blood Count 4.59 10^6/uL (4.20-5.40); White Blood Count 9.7 10^3/uL (4.0-11.0)
[2024-12-21 10:07] LABS: Alanine Aminotransferase 51 U/L (14-59); Albumin Globulin Ratio 1.1; Albumin Level 3.3 g/dL (3.4-5.0); Alkaline Phosphatase 86 U/L (46-116); Anion Gap 11.0; Aspartate Amino Transferase 19 U/L (15-37); Blood Urea Nitrogen 8.0 mg/dL (7.0-18.0); Calcium 8.7 mg/dL (8.5-10.1); Carbon Dioxide 29.3 mmol/L (21.0-32.0); Chloride 103 mmol/L (98-107); Estimated GFR (African America >60 (>=60 mL/min/1.73m^2); Estimated GFR (Non-African Ame >60 (>=60 mL/min/1.73m^2); Globulin 3.1 g/dL; Glucose 91 mg/dL (74-106); Potassium 4.3 mmol/L (3.5-5.1); Sodium 139 mmol/L (136-145); Total Protein 6.4 g/dL (6.4-8.2)
== END 2024-12-21 08:51 | disposition home or self-care (01) ==
LOC: CT 08:50
PROVIDERS: PCP Internal Medicine; Visit Provider Internal Medicine
DX: R31.0 Gross hematuria (principal); R74.01 Elevation of levels of liver transaminase levels
CPT/HCPCS: 36415; 74177; 80053; 85025; Q9967

== ENCOUNTER 2025-02-21 07:07 | Outpatient (OUT) | payer BC, SELFPAY ==
--- NOTE | 2025-02-21 07:09 | US_ITS ---
The [address] [address] Patient Name: CARMEN CARRIZALES MRN: [id number] date: 1995 Sex: F Assigned Patient Location: Current Patient Location: Accession/Order Number: [id number] Exam Date: 02/21/2025 07:09 Report Date: 02/21/2025 08:14 At the request of: JEREMY RUIZ DO Procedure: US pelvis w/ transvaginal ULTRASOUND PELVIS WITH TRANSVAGINAL CLINICAL DATA: Pelvic pain and abdominal uterine bleeding. IUD. COMPARISON: CT 12/21/2024 Real-time ultrasound evaluation the pelvis was performed utilizing both a transabdominal and transvaginal approach. TRANSABDOMINAL: The urinary bladder is empty, limiting evaluation. The uterus is slightly retroverted. Estimated uterine size is approximately 8.5 x 4.8 x 4.6 cm. No focal myometrial abnormalities are noted. There is an echogenic structure within the endometrial canal correlating with the reported IUD. Both ovaries are identified. The right measures 3.9 x 2.4 x 3.6 cm. The left ovary measures 3.8 x 2.8 x 2.6 cm. There are no dominant adnexal cysts. There is documentation of ovarian blood flow. TRANSVAGINAL: Transitional imaging was performed to better evaluate the uterus and adnexa. By this approach, no focal myometrial abnormalities are seen. The endometrial lining is estimated at 4-5 mm in thickness. The IUD appears to be in appropriate position. The right ovary is again identified however the left is not seen. There is no free fluid. US/US pelvis w/ transvaginal IMPRESSION: IUD IN APPROPRIATE POSITION. NO DOMINANT ADNEXAL CYSTS OR OTHER ACUTE FINDINGS. Impression dictated by: Gladis Valente M.D. 02/21/2025 8:14 AM Dictation Location: [place] [address] Electronically authenticated by: [id number] Date: 02/21/2025 08:14
--- OUTSIDE RECORDS SUMMARY | 2025-02-21 07:09 | XMS_ITS | Clinical Summary ---
Author Organization [facility] Address [address] [place] [address] Care Team Providers Care [employer] Name Role Phone Krishna Hernandez Primary Care Provider [phone] Allergies Active Allergy Reactions Criticality Noted Date Comments Doxycycline GI intolerance 09/17/2023 Medications Levonorgestrel (Mirena, 52 MG,) 20 MCG/DAY intrauterine device 52 mg by Intrauterine route continuously IUD was placed during recent surgery on 08/12/2024 [facility]: 96100-413-97 Lot# [id number] Expiration: 09/2026 5 Active ibuprofen 800 MG tablet Take 800 mg by mouth every 8 (eight) hours if needed 5 Active citalopram (CeleXA) 40 MG tablet Take 40 mg by mouth Daily 5 Active Hospital, Clinic, or Other Facility Administered Medication Ordered Dose Route Frequency Start Date End Date Status Levonorgestrel intrauterine device 52 mgIndications:Encounter for IUD insertion 52 mg IU Continuous 07/26/2024 07/25/2029 Active Encounters Date Type Department Care Team Description 01/24/2025 [place] [address] Diane Santacruz MA 01/23/2025 1:00 PM EDT [place]illary [place] [address] Abnormal uterine bleeding (AUB); Abdominal cramping 01/10/2025 10:50 AM EDT Office Visit [facility] [place] [phone] Jacobo Olmstead DO Abnormal uterine bleeding (AUB); Abdominal cramping 01/10/2025 Bamboo flowsheet [facility] [address] [place] [address] [place] [address] Jacobo Olmstead DO from Last 3 Months Social History Tobacco Use Types Packs/Day Years [...] - Inhaled Oxygen Concentration - - Weight 104 kg (229 lb 1.9 oz) 01/10/2025 11:13 A M EDT Height - - Body Mass Index - - Plan of Treatment Upcoming Encounters Date Type Department Care Team (Late st Contact Info) Description 03/13/2025 10:20 AM EST Procedure Visit [facility] [address] [place] [address] [place] [phone] Jacobo Olmstead DO [address] [place] [address] [place] [address] Procedures Procedure Name Priority Date/Time Associated Diagnosis Comments US PELVIC COMPLETE W/ TV Routine 01/23/2025 1:47 PM EDT Abnormal uterine bleeding (AUB) Abdominal cramping from Last 3 Months Results * US Pelvis w/ TV (01/23/2025 1:47 PM EDT) Anatomical Region Laterality Modality Pelvis Ultrasound 01/24/2025 12:4 8 PM EDT Impressions 01/24/2025 12:56 PM EDT 1. Left ovarian cyst. 2. No intramural mass. TRANSCRIBED BY: ELECTRONICALLY SIGNED BY: Johs Iyer MD Narrative 01/24/2025 12:56 PM EDT FINDINGS: Uterus 12.7 x 3.5 x 5.5 cm Endometrium 4mm Right Ovary 2.5 x 2.2 x 2.1 cm Left Ovary 4.2 x 3.7 x 4.5 cm (cyst) Normal uterine orientation, slight retroflexion of the fundus. No myometrial mass. Normal endometrium. No pelvic fluid. Normal right ovary, several millimeter follicles. Left ovarian complex cyst occupies majority of the left ovary. Procedure Note Josh Iyer MD - 01/24/2025 FINDINGS: Uterus 12.7 x 3.5 x 5.5 cm Endometrium 4mm Right Ovary 2.5 x 2.2 x 2.1 cm Left Ovary 4.2 x 3.7 x 4.5 cm (cyst) Normal uterine orientation, slight retroflexion of the fundus. Nomyometrial mass. Normal endometrium. No pelvic fluid. Normal right ovary, several millimeter follicles. Leftovarian complex cyst occupies majority of the left ovary. IMPRESSION: 1. Left ovarian cyst. 2. No intramural mass. TRANSCRIBED BY: ELECTRONICALLY SIGNED BY: Josh Iyer MD Jacobo Olmstead DO [facility] PROCEDURES Final Result from Last 3 Months Insurance [address] [place] [address] [facility] Care Teams [employer] Relationship Specialty Start Date End Date Krishna Hernandez DO [address] [place] [address] PCP - General Internal Medicine 08/10/23
--- OUTSIDE RECORDS SUMMARY | 2025-02-21 07:09 | XMS_ITS | Clinical Summary ---
Author Organization [facility] tem Address [id number] [address] [place] [address] Care Team Providers Care Generator Operator Straight Bevel Gear Name Role Phone Krishna Hernandez DO Primary Care Provider [phone] Allergies Active Allergy Reactions Criticality Noted Date [...] lymphadenopathy 06/26/2024 Status migrainosus 03/21/2017 Hypertension 07/17/2016 Encounters Date Type Department Care Team Description 12/28/2024 2:34 PM EDT - 12/28/2024 6:27 PM EDT Emergency [facility] - Emergency [address] [place] [address] Tarik Yoo MD Hematuria, unspecified type (Primary Dx) Discharge Disposition: Home 12/28/2024 Travel from Last 3 Months Family History Medical History Relation Name Comments [...] = 0.6 oz pur e alcohol) occasionally [facility] Utilities Answer Date Recorded In the past [...] got money to buy more. Never True 12/28/2024 Within the past 12 months th e food we bought just didn't last and we didn't have money to get more. Never True 12/28/2024 Purpose - Life Answer Date Recorded Purpose and direction in life Unknown Comments No Sex and Gender Information Value Date Recorded Sex Assigned at Not on file Legal Sex Female 12:08 PM EST Gender Identity Not on file Sexual Orientation Not on file Last Filed Vital Signs Vital Sign Reading Time Taken Comments Blood Pressure 140/78 12/28/2024 6:25 PM EDT Pulse 75 12/28/2024 6:25 PM EDT Temperature 36.9 C (98.5 F) 12/28/2024 2:21 PM EDT Respiratory Rate 18 12/28/2024 6:25 PM EDT Oxygen Saturation 97% 12/28/2024 6:25 PM EDT Inhaled Oxygen Concentration - - Weight 104.8 kg (231 lb) 12/28/2024 2:21 PM EDT Height 165.1 cm (5' 5 ) 12/28/2024 2:21 PM EDT Body Mass Index 38.44 12/28/2024 2:21 PM EDT Plan of Treatment Health Maintenance Due Date Last Done Comments Tobacco Counseling 1995 Depression Screening 2007 Adult BMI Follow Up Plan 2013 DTaP,Tdap and Td Vaccines (1 - Tdap) 2014 Pap Smear 01/12/2016 Influenza Vaccine 01/09/2025 Adult BMI Screening 12/28/2025 12/28/2024 Tobacco Screening 12/28/2025 12/28/2024 Goals Goal Patient Goal Type Associated Problems Recent Progress Patient-Stated? Author Home with self care General Yes Riddhi Butler, RN Note: Evaluation of progress towards goal: Patient plans to return home with self care. Medical Devices Not on file Procedures Procedure Name Priority Date/Time Associated Diagnosis Comments POCT , URINE (NUCG) Routine 12/28/2024 6:03 PM EDT POCT NURSING URINE MACROSCOPIC UA Routine 12/28/2024 6:01 PM EDT ER EXTRA URINE MARBLE STAT 12/28/2024 5:47 PM EDT ER EXTRA URINE CULTURE STAT 5:47 PM EDT ER EXTRA URINE STAT 12/28/2024 5:[address] ABDOMEN AND PELVIS WO CONT STAT 12/28/2024 4:06 PM EDT EXTRA TUBES SST TOP Routine 12/28/2024 2 :50 PM EDT EXTRA TUBES BLUE TOP Routine 12/28/2024 2:50 PM EDT EXTRA TUBES Routine 12/28/2024 2:50 PM EDT COMPREHENSIVE METABOLIC PANEL STAT 12/28/2024 2:50 PM EDT CBC WITH AUTO DIFFERENTIAL STAT 12/28/2024 2:50 PM EDT from Last 3 Months Results * POCT , urine (12/28/2024 6:03 PM EDT) POC Urine Negative Negative, Indeterminate 12/28/2024 5:57 PM EDT [facility] Urine 12/28/2024 6:03 PM EDT 12/28/2024 5:57 PM EDT us Tarik Yoo MD POINT OF CARE TEST ORDERABLES F inal Result [facility] [address] [place] [address], [place] * (ABNORMAL) POCT Nursing Urine Macroscopic UA (12/28/2024 6:01 PM EDT) Pathologist [facility] POC Urine Specific [place] 1.020 1.010, 1.015, 1.020, 1.025 12/28/2024 5:51 PM EDT [facility] POC Urine Leukocyte Esterase Trace(A) Negative 12/28/2024 5:51 PM EDT [facility] POC Urine Nitrite Negative Negative 12/28/2024 5:51 PM EDT [facility] POC Urine pH 7.5 5.0, 6.0, 6.5, 7.0, 7.5, 8.0, 8.5, 5.5 12/28/2024 5:51 PM EDT [facility] POC Urine Protein Negative Negative 12/28/2024 5:51 PM EDT [facility] POC Urine Glucose Negative Negative 12/28/2024 5:51 PM EDT [facility] POC Urine Ketones Negative Negative 12/28/2024 5:51 PM EDT [facility] POC Urine Urobilinogen 1.0 E.U./dL 12/28/2024 5:51 PM EDT [facility] POC Urine Bilirubin Negative Negative 12/28/2024 5:51 PM EDT [facility] POC Urine Blood/HGB Trace(A) Negative 12/28/2024 5:51 PM EDT [facility] Urine 12/28/2024 6:01 PM EDT 12/28/2024 5:51 PM EDT us Tarik Yoo MD POINT OF CARE TEST ORDERABLES F inal Result Performing Organization Address City/[facility]/ZIP Co de Phone Number [address] [place] [address], [place] * Extra Urine [place] (12/28/2024 5:47 PM EDT) Extra Tube Auto Resulted 12/28/2024 7:01 PM EDT [facility] Urine Urine specimen collection, clean catch / Unknown 12/28/2024 5:47 PM EDT 12/28/2024 6:39 PM EDT Lisa Nuñez FILM VAULT SUPERVISOR-CHANNEL MACHINE OPERATOR URINE ORDERABLES Final Res ult Performing Organization Address City/[facility] Co de Phone Number [address] [place] [address], [place] * Extra Urine Culture (12/28/2024 5:47 PM EDT) Extra Tube Auto Resulted 12/28/2024 7:01 PM EDT [facility] Urine Urine specimen collection, clean catch / Unknown 12/28/2024 5:47 PM EDT 12/28/2024 6:39 PM EDT us Lisa Nuñez FILM VAULT SUPERVISOR-CHANNEL MACHINE OPERATOR URINE ORDERABLES Final Res ult Performing Organization Address City/[facility]/ZIP Co de Phone Number [address] [place] [address], [place] * Extra Urine (12/28/2024 5:47 PM EDT) Extra Tube Auto Resulted 12/28/2024 7:01 PM EDT [facility] Urine Urine specimen collection, clean catch / Unknown 12/28/2024 5:47 PM EDT 12/28/2024 6:39 PM EDT us Lisa Nuñez FILM VAULT SUPERVISOR-CHANNEL MACHINE OPERATOR URINE ORDERABLES Final Res ult [facility] [address] [place] [address], [place] * CT abdomen and pelvis without contrast (12/28/2024 4:06 PM EDT) Anatomical Region Laterality Modality Body, Abdomen, Body Covera N/A Compu kenneth Tomography 12/28/2024 4:10 PM EDT Narrative 12/28/2024 4:14 PM EDT History: Kidney stones suspected right-sided pain.. Exam/Technique: Contiguous axial images are obtained of the abdomen pelvis without intravenous contrast. Coronal and sagittal reconstructions were performed and reviewed. Automatic dose exposure reduction technique utilized. Comparison: None. Findings: Acute findings:No free fluid or free air. Abdomen no clear evidence of renal stones or obstructive uropathy. There are multiple phleboliths around the ureters distally in the pelvis that may compromise evaluation. IUD is noted in appropriate position. Urinary bladder demonstrate no acute findings. Chronic findings:Body wall and soft tissues unremarkable except for periumbilical fat-containing hernia. Degenerative changes of the lumbosacral spine mild. No abnormality of the solid organs. No bowel obstruction. No pelvic mass or fluid collection. Incidental findings: IMPRESSION: No definitive acute findings. No obvious obstructive uropathy. No obvious abnormality within the urinary bladder. All CT scans at this facility use dose modulation, iterative reconstruction, and/or weight based dosing when appropriate to reduce radiation dose to as low as reasonably achievable. Finalized by Jin Salas MD on 12/28/2024 4:14 PM Procedure Note Jin Salas MD - 12/28/2024 History: Kidney stones suspected right-sided pain.. Exam/Technique: Contiguous axial images are obtained of the abdomenpelvis without intravenous contrast. Coronal and sagittal reconstructionswere performed and reviewed. Automatic dose exposure reduction technique utilized. Comparison: None. Findings: Acute findings:No free fluid or free air. Abdomen no clear evidence of renal stones or obstructive uropathy. There are multiple phleboliths around the ureters distally in the pelvisthat may compromise evaluation. IUD is noted in appropriate position. Urinary bladder demonstrate no acute findings. Chronic findings:Body wall and soft tissues unremarkable except forperiumbilical fat-containing hernia. Degenerative changes of the lumbosacral spine mild. No abnormality of the solid organs. No bowel obstruction. No pelvic mass or fluid collection. Incidental findings: IMPRESSION: No definitive acute findings. No obvious obstructive uropathy. No obvious abnormality within the urinary bladder. All CT scans at this facility use dose modulation, iterativereconstruction, and/or weight based dosing when appropriate to reduceradiation dose to as low as reasonably achievable. Finalized by Jin Salas MD on 12/28/2024 4:14 PM us Lisa Nuñez APRN-JUSTICE IMG CT ORDERABLES Final Re sult * SST TOP (12/28/2024 2:50 PM EDT) Extra Tube Auto Resulted 12/28/2024 4:02 PM EDT [facility] Blood Venous blood / Unknown 12/28/2024 2:50 PM EDT 12/28/2024 3:05 PM EDT us Lisa Nuñez APRN-CHANNEL MACHINE OPERATOR LAB BLOOD ORDERABLES Final Result [facility] [address] [facility] [place] [address], * Light Blue Top (12/28/2024 2:50 PM EDT) Extra Tube Auto Resulted 12/28/2024 4:02 PM EDT [facility] Blood Venous blood / Unknown 12/28/2024 2:50 PM EDT 12/28/2024 3:05 PM EDT us Lisa Nuñez APRN-CHANNEL MACHINE OPERATOR LAB BLOOD ORDERABLES Final Result [facility] [address] [place] [address], * CBC auto differential (12/28/2024 2:50 PM EDT) WBC 8.5 4 - 11 x10E9/L 12/28/2024 3:18 PM EDT [facility] RBC Count 4.90 3.8 - 5.2 X10E12/L 12/28/2024 3:18 PM EDT [facility] Hemoglobin 14.5 11.7 - 15.5 g/dL 12/28/2024 3:18 PM EDT [facility] Hematocrit 42.4 35 - 47 % 12/28/2024 3:18 PM EDT [facility] MCV 87 80 - 100 fL 12/28/2024 3:18 PM EDT [facility] MCH 29.6 27 - 34 pg 12/28/2024 3:18 PM EDT [facility] MCHC 34.2 32 - 36 g/dL 12/28/2024 3:18 PM EDT [facility] RDW 13.2 11.5 - 15 % 12/28/2024 3:18 PM EDT [facility] Platelet Count 320 150 - 450 X10E9/L 12/28/2024 3:18 PM EDT [facility] MPV 8.1 7 - 12 fL 12/28/2024 3:18 PM EDT [facility] Neutrophils % 69.6 % 12/28/2024 3:18 PM EDT [facility] Lymphocytes % 24.4 % 12/28/2024 3:18 PM EDT [facility] Monocytes % 4.6 % 12/28/2024 3:18 PM EDT [facility] Eosinophils % 1.1 % 12/28/2024 3:18 PM EDT [facility] Basophils % 0.3 % 12/28/2024 3:18 PM EDT [facility] Neutrophils Absolute (A) 5.9 1.5 - 6.6 10*3/uL 12/28/2024 3:18 PM EDT [facility] Lymphocytes Absolute 2.1 1.0 - 3.5 10*3/uL 12/28/2024 3:18 PM EDT [facility] Monocytes Absolute 0.4 0.0 - 0.9 10*3/uL 12/28/2024 3:18 PM EDT [facility] Eosinophils Absolute 0.1 0.0 - 0.4 10*3/uL 12/28/2024 3:18 PM EDT [facility] Basophils Absolute 0.0 0.0 - 0.2 10*3/uL 12/28/2024 3:18 PM EDT [facility] Differential Type AUTOMATED DIFFERENTIAL 12/28/2024 3:18 PM EDT [facility] Blood Venous blood / Unknown Venipuncture / Unknown 12/28/2024 2:50 PM EDT 12/28/2024 3:04 PM EDT us Lisa Nuñez FILM VAULT SUPERVISOR-CHANNEL MACHINE OPERATOR LAB BLOOD ORDERABLES Final Result [facility] [address] [facility] [place] [address], [place] * (ABNORMAL) Comprehensive metabolic panel (12/28/2024 2:50 PM EDT) SODIUM 135 134 - 146 mmol/L 12/28/2024 3:25 PM EDT [facility] POTASSIUM 3.7 3.5 - 5.0 mmol/L 12/28/2024 3:25 PM EDT [facility] CHLORIDE 106 98 - 109 mmol/L 12/28/2024 3:25 PM EDT [facility] CARBON DIOXIDE 23 22 - 32 mmol/L 12/28/2024 3:25 PM EDT [facility] ANION GAP 6 5 - 15 mmol/L 12/28/2024 3:25 PM EDT [facility] BLOOD UREA NITROGEN 8 5 - 23 mg/dL 12/28/2024 3:25 PM EDT [facility] CREATININE 0.57 0.40 - 1.00 mg/dL 12/28/2024 3:25 PM EDT [facility] Comment:METHOD TRACEABLE TO IDNE STANDARD GLUCOSE 121(H) 65 - 99 mg/dL 12/28/2024 3:25 PM EDT [facility] CALCIUM 8.9 8.5 - 10.5 mg/dL 12/28/2024 3:25 PM EDT [facility] TOTAL PROTEIN 7.3 6.0 - 8.0 g/dL 12/28/2024 3:25 PM EDT [facility] ALBUMIN 4.0 3.2 - 5.3 g/dL 12/28/2024 3:25 PM EDT [facility] ALKALINE PHOSPHATASE 81 39 - 130 U/L 12/28/2024 3:25 PM EDT [facility] AST 30 <=41 U/L 12/28/2024 3:25 PM EDT [facility] ALT 46(H) <=31 U/L 12/28/2024 3:25 PM EDT [facility] BILIRUBIN,TOTAL 0.9 0.3 - 1.2 mg/dL 12/28/2024 3:25 PM EDT [facility] EGFR Non-Race Dependent >90 >=60 ml/min/1.7 3sq.m 12/28/2024 3:25 PM EDT [facility] Comment: eGFR not reported due to non-numeric value for Creatinine. EGFR not calculated due to patient's gender not being defined. Reported eGFR is based on the CKD-EPI 2020 equation that does not use a race coefficient. Blood Venous blood / Unknown Venipuncture / Unknown 12/28/2024 2:50 PM EDT 12/28/2024 3:04 PM EDT us Lisa Nuñez FILM VAULT SUPERVISOR-CHANNEL MACHINE OPERATOR LAB BLOOD ORDERABLES Final Result [facility] [address] [facility] [place] [address], [place] from Last 3 Months Insurance [facility] MEDICAID Advance Directives * Full Code (Latest Code Status on File) Date Activated Date Inactivated Comments 06/26/2024 12:22 AM 06/28/2024 4:31 PM * Full Code Date Activated Date Inactivated Comments 03/21/2017 4:16 AM 03/23/2017 8:13 PM Care Teams Generator Operator Straight Bevel Gear Relationship Specialty Start Date End Date Krishna Hernandez DO [address] [place] [address] PCP - General 06/30/24
--- OUTSIDE RECORDS SUMMARY | 2025-02-21 07:09 | XMS_ITS | CCD ---
Author Organization [facility] Care Team Providers Care Carcass Washer Name Role Phone PHYSICIAN, DEFAULT Unavailable Unavailable PHYSICIAN, DEFAULT Unavailable Unavailable Krishna Hernandez Unavailable DAVID, DR STRONG Primary Care Unavailable MRAIBELL ., MANUELITO Admitting Unavailable PEPE ., AALIYAH STAUFFER Consulting Unavailkemi REYNA ., MANUELITO Attending Unavailable ROGELIO FUCHS Consulting Unavailable MARIBELL ., MANUELITO Consulting Unavailable SONIDO ., DR BISHOP Attending Unavailabl e SONIDO ., DR BISHOP Consulting Unavailabl e SONIDO ., DR BISHOP Admitting Unavailkemi e DAVID, DR STRONG Primary Care Unavailable MARKUS, DR SUSAN Hudson Admitting Unavailable MARKUS, DR SUSAN Hudson Attending Unavailable MARKUS, DR SUSAN Hudson Consulting Unavailable Susan Aparicio Unavailable MD Susan Aparicio Primary Care Provider Jeremy Olmstead Attending Provider Krishna Hernandez MD Primary Care Provider Krishna Hernandez DO Attending Provider Krishna Hernandez DO Primary Care Provider Krishna Hernandez DO Attending Provider Krishna Hernandez Attending Unavailable Krishna Hernandez Admitting Unavailable Krishna Hernandez Attending Unavailable Krishna Hernandez Admitting Unavailable KRISHNA HERNANDEZ Primary Care Unavailable KRISHNA HERNANDEZ Primary Care Unavailable ROLO ESTES Admitting Unavailable PRATEEK PONCE Attending Unavailable KRISHNA HERNANDEZ Primary Care Unavailable ROSA KNOWLES Attending Unavailable KRISHNA HERNANDEZ Primary Care Unavailable TRUE PHILLIPS Attending Unavailable KRISHNA HERNANDEZ Primary Care Physician Krishna Hernandez DO Primary Care Provider JEREMY OLMSTEAD Attending Unavailable JEREMY OLMSTEAD Referring Unavailable JEREMY OLMSTEAD Attending Unavailable JEREMY OLMSTEAD Referring Unavailable Julieth Lassiter Attending Unavailable Michaelle Morales Attending Unavailable KRISHNA HERNANDEZ Referring Unavailable Michaelle Morales Attending Unavailable Michaelle Morales Admitting Unavailable Allergies Allergy Classification Reported Allergen(s) Allergy Type Date of Onset Reaction(s) Facility (9 sources) Doxycycline; Translations: [DOXYCYCLINE] Drug Allergy 4 GI intolerance, Upset stomach (finding) [facility] Healthcare (1 source) Doxycycline Drug Allergy 5 [facility] Repository Medications Current Medications Medication Drug Class(es) Dates Sig (Normalized) Sig (Original) [id number] 200 actuat albuterol 0.09 mg/actuat metered dose [...] hrs Active amoxicillin 875 mg oral tablet (14 sources) Penicillin-class Antibacterial Start: 12-02-2024 take 1 tablet by mouth twice daily Start: 06-23-2024 End: 07-08-2024 take 1 tablet by mouth twice daily Amoxicillin 875 mg tablet Discontinued 875 MG PO Twice daily 27 02June 23, 2024 1:00am July 08, 2024 3:41pm Start: 06-02-2022 take 1 capsule by [facility] every eight hours Amoxicillin 500 MG 1 [...] Jan, Active citalopram 40 mg oral tablet (20 sources) Serotonin Reuptake Inhibitor Start: 01-04-2025 take 1 tablet by mouth once daily citalopram 40 mg Tab 40 mg = 1 tab(s), Oral, Daily, # 30 tab(s), Refills(s) 0 Start Date: 01/04/25 Status: Ordered Quantity: 30.0 Unit: tab(s) Repeat number: 1 Start: 10-07-2024 End: 11-08-2024 take 1 tablet [...] Jul, Active ibuprofen 800 mg oral tablet (5 sources) Nonsteroidal Anti-inflammatory Drug Start: 06-25-2024 take 1 tablet by mouth every eight hours as needed ibuprofen 800 MG tablet Take 800 mg by mouth every 8 (eight) hours if needed 06/25/2024 Active levonorgestrel 0.808568 mg/hr intrauterine system (16 sources) Progestin, Progestin-contain ing Intrauterine Device Start: 08-12-2024 Levonorgestrel (Mirena, 52 MG,) 20 MCG/DAY intrauterine device 52 mg by Intrauterine route continuously IUD was placed during recent surgery on 08/12/2024 [facility]: 97668-072-62 Lot# [id number] Expiration: 09/202608/12/2024 Active Start: 07-26-2024 End: 07-25-2029 Levonorgestrel intrauterine device 52 mg Mirena Active Multivitamin preparation (2 sources) Start: 01-04-2025 multivitamin Refill(s) 0 Start Date: 01/04/25 Status: Ordered Repeat number: 1 nitrofurantoin, macrocrystals 25 mg / nitrofurantoin, monohydrate 75 mg oral capsule (6 sources) Nitrofuran Antibacterial take 1 capsule by mouth every twelve hours [place] (No Known Home Meds) (3 sources) Start: 07-08-2024 [place] (No Known Home Meds) Active July 08, 2024 1:00am Start: 07-08-2024 [place] (No Kn own Home Meds) Active July 08, 2024 12:00am Start: 04-30-2020 [place] (No Kn own Home Meds) Active April [...] eight hours predniSONE 20 mg oral tablet (2 sources) Start: 12-02-2024 Completed/Discontinued Medications Medication Drug Class(es) Dates Sig (Normalized) Sig (Original) cefdinir 300 mg oral capsule (6 sources) Cephalosporin Antibacterial Start: 04-14-2024 End: 07-08-2024 take 1 capsule by mouth twice daily Cefdinir 300 mg capsule Discontinued 300 MG PO Twice daily 10 April 14, 2024 1:00am July 08, 2024 3:36pm melatonin 5 mg oral tablet (7 sources) Start: 05-02-2020 End: 04-14-2024 take 1 tablet by mouth once daily at bedtime as needed Melatonin 5 mg Tablet Discontinued 5 MG PO Daily at bedtime as needed for Insomnia May 02, 2020 1:00am April 14, 2024 10:54am nicotine 2 mg chewing gum (7 sources) Cholinergic Nicotinic Agonist Start: 05-02-2020 End: 04-14-2024 Nicotine (Polacrilex) 2 mg Gum Discontinued 2 MG BUCCAL Q2H as needed for Nicotine Cravings May 02, 2020 1:00am April 14, 2024 10:54am ondansetron 4 mg disintegrating oral tablet (6 sources) Serotonin-3 Receptor Antagonist Start: 04-14-2024 End: [...] perineal pain] Onset: 4 Episodic Acute bronchitis (16 sources) Acute bronchitis due to other specified [...] disease with esophagitis, without bleeding] Onset: 8 Essential hypertension (2 sources) Hypertensive disorder Onset: 7 01-03-2025 Chronic Genitourinary symptoms and ill-defined conditions (20 sources) Genitourinary symptoms; Translations: [Unspecified symptoms and signs involving the genitourinary system] Onset: 5 04-14-2024 Episodic Headache; including migraine (17 sources) Refractory migraine with aura; Translations: [Migraine with aura, intractable, with status migrainosus] Onset: 4 04-22-2023 Chronic Comment on above: Problem List clean-u p per request of Phys. EHR Cmte Outside Source Comme nt: Problem List clean-up per request of Phys. EHR Cmte Headache; [...] significant proteinuria, third trimester] Resolved: 8 Episodic Malaise and fatigue (2 sources) Fatigue; Translations: [Other fatigue] 12-02-2024 Episodic Menstrual disorders (3 sources) Amenorrhea; Translations: [Amenorrhea, unspecified] Onset: 4 Chronic Mood disorders (16 sources) Chronic depression; Translations: [Major depressive disorder, single episode, unspecified] 04-22-2023 Chronic Comment on above: Problem List clean-u p per request of Phys. EHR Cmte Outside Source Comme nt: Problem List clean-up per request of Phys. EHR Cmte Nausea and vomiting (10 sources) Nausea and vomiting; Translations: [Nausea with vomiting, unspecified] 04-14-2024 Episodic Other circulatory disease (9 sources) Elevated blood-pressure reading without diagnosis of [...] trimester, not applicable or unspecified] Episodic Other female genital disorders (2 sources) Abnormal uterine bleeding; Translations: [Abnormal uterine and vaginal bleeding, unspecified] 01-10-2025 Chronic Other gastrointestinal disorders (2 sources) Dysphagia, unspecified; Translations: [Dysphagia, unspecified] 07-08-2024 Episodic Other injuries and conditions due to external causes (4 sources) Other injury of unspecified body region, initial encounter; Translations: [Bruising] Episodic Other injuries and conditions due to external causes (3 sources) Traumatic AND/OR non-traumatic injury; Translations: [Other injury of unspecified body region, initial encounter] Episodic Other liver diseases (9 sources) Enzyme level - finding; Translations: [Transaminasemia] 07-08-2024 Episodic Other liver diseases (1 source) Abnormal levels of other serum enzymes; Translations: [Other nonspecific abnormal serum enzyme levels] 07-08-2024 Episodic Other lower respiratory disease (4 sources) Wheezing; Translations: [Wheezing] Episodic Other lower respiratory disease (2 sources) Cough; Translations: [Cough] 12-02-2024 Episodic Other nutritional; endocrine; and metabolic disorders [...] Chronic Other nutritional; endocrine; and metabolic disorders (9 sources) Obesity; Translations: [Obesity, unspecified] 07-08-2024 Chronic Other and delivery including normal (12 sources) test positive; Translations: [Encounter for test, result positive] Onset: 4 Resolved: 6 Episodic Other screening for suspected conditions (not mental disorders or infectious disease) (7 sources) Encounter for screening for malignant neoplasm of cervix; Translations: [Urine test negative] Onset: 3 Episodic Previous (3 sources) Supervision of high risk with history of previous section; Translations: [Maternal care for unspecified type scar from previous delivery] Episodic Residual codes; unclassified (5 sources) Tobacco user; Translations: [Tobacco use] Onset: 7 01-04-2025 Episodic Screening and history of mental health and substance abuse codes (1 source) Personal history of other mental and behavioral disorders Episodic Spondylosis; intervertebral disc disorders; other back problems (7 sources) Sciatica; Translations: [Lumbago with sciatica, left side] Episodic Substance-related disorders (14 sources) Nicotine dependence, cigarettes, uncomplicated; Translations: [Nicotine dependence] Onset: 7 Chronic Suicide and intentional self-inflicted injury (9 sources) Suicidal thoughts; Translations: [Suicidal ideations] 04-22-2023 Episodic Comment on above: Problem List clean-u p per request of Phys. EHR Cmte Outside Source Comme nt: Problem List clean-up per request of Phys. EHR Cmte Unclassified (3 sources) CONTACT W/AND (SUSP) EXPOS COVID-19; Translations: [CONTACT W/AND (SUSP) EXPOS COVID-19] Onset: 2 Unclassified (1 source) Left Ankle Pain, Injury Onset: 4 Unclassified (2 sources) Severe acute respiratory syndrome coronavirus 2 detected 01-03-2025 Comment on above: Outside Source Comme nt: Problem List clean-up per request of Phys. EHR Cmte Urinary tract infections (4 sources) Cystitis, unspecified without hematuria; Translations: [Urinary tract infectious disease] Onset: 2 Episodic Viral infection (7 sources) COVID-19; Translations: [Severe acute respiratory syndrome [...] Translations: [Unspecified acute conjunctivitis] Onset: 03-06-2017 Episodic Lymphadenitis (5 sources) Localized enlarged lymph nodes; Translations: [Enlargement of lymph nodes] Onset: 06-26-2024 07-08-2024 Episodic Miscellaneous mental health disorders (3 sources) depression; Translations: [ depression] Resolved: 05-06-2016 Episodic Nonspecific chest pain (4 sources) Chest pain; Translations: [Other chest pain] Onset: 06-11-2017 Episodic Other circulatory disease (3 sources) Cardiovascular [...] Translations: [Dysarthria and anarthria] Onset: 01-12-2018 Episodic Other non-traumatic joint disorders (1 source) Ankle pain Onset: 04-26-2024 Episodic Other upper respiratory disease (1 source) Pain in throat Onset: 06-25-2024 Episodic Other upper respiratory infections (20 sources) Acute maxillary sinusitis, unspecified; Translations: [Acute upper respiratory infection] Onset: 01-06-2017 Episodic Residual codes; unclassified (3 sources) History of uterine scar from previous surgery; Translations: [History of uterine scar from previous surgery] Resolved: 12-31-2016 Episodic Sprains and strains (1 source) Sprain of unspecified ligament of left ankle, initial encounter; Translations: [Sprain of unspecified ligament of left ankle, initial encounter] Onset: 04-26-2024 Episodic Unclassified (1 source) CONTACT W/AND (SUSP) EXPOS COVID-19; Translations: [CONTACT W/AND (SUSP) EXPOS COVID-19] Onset: 09-25-2021 Results Test Name Value Interpretation Reference Range Facil ity US PELVIC COMPLETE W/ TVon 0 01-23-2025 US PELVIC COMPLETE W/ TV FINDINGS: Uterus 12.7 x 3.5 x 5.5 [...] BY: ELECTRONICALLY SIGNED BY: Josh Iyer MD Normal Not Available Comment on above: Order Comment: US PE LVIS-TRANSVAG IF INDICATED No LMP recorded. (Menstrual status: No Periods). Urine Cytology ([facility])on 0 01-10-2025 Urine Cytology Diagnosis Info Invalid Interpretation Code [facility] Comment on above: Result Comment: A:Ur ine,Clean Catch:Voided Interpretation - Adequate cellularity for evaluation. CPT 04526 MicroScopic Description - Adequacy - Gross Description Site ID:A color Yellow fixative Alcohol Specimen designated Clean Catch received in alcohol preservative and labeled with the patient???s name, consists of 40ml clear yellow fluid. Electronically signed by : on: 01/10/2025 13:43:27 Performed By: #### 1 [id number] #### [facility] [address] [place] [address] Ambulatory Visit Summaryon 0 01-04-2025 Ambulatory Visit Summary Ambulatory Visit Summary ADRIENNE CAMARENA :1995 Visit Date:01/04/2025 Ambulatory Visit Instructions Your Diagnosis Gross hematuria Smoker Your Care Team Attending Physician - Michaelle Moralse PA-C Primary Care Physician - KRISHNA HERNANDEZ DO Referring Physician - KRISHNA HERNANDEZ DO This Is Your Medications List citalopram (citalopram 40 mg Tab) multivitamin Discharge Vitals Heart Rate (Peripheral) 72 Blood Pressure 124/79 Height 163 cm Height 64 in Weight 104.6 kg Weight 230.603 lb BMI 39.37 What to do next Scheduled Follow-Up Appointments Thursday 1:30 PM EDT With: Maikol GARIBAY, Julieth Mayorga Where: [facility] [address] [address]- You Need to Schedule the Following Appointments Follow Up with Michaelle Morales PA-C, URL When: Comments: F/U pending cysto Where: Medications What How Much When Instructions Unchanged citalopram (citalopram 40 mg Tab) 1 Tablets By Mouth Every day Unchanged multivitamin Allergies doxycycline (throwing up, Upset stomach) Problems Ongoing - Any problem that you are currently receiving treatment for. Acute infective bronchitis Blood in urine Elevated blood-pressure reading without diagnosis of hypertension Enzyme level - finding Gross hematuria Hypertensive disorder Migraine Nausea and vomiting Obesity Recurrent major depression SARS-CoV-2 detected Smoker Status migrainosus Streptococcal sore throat Submandibular lymphadenopathy Suicidal thoughts Patient Survey You may receive a survey via text or e-mail asking about your office visit. Please share your experience with us by completing your survey. We appreciate your feedback and thank you for choosing us for your care. Education Materials Hematuria, Adult Hematuria is blood in the urine. Blood may be visible in the urine, or it may be identified with a test. This condition can be caused by infections of the bladder, urethra, kidney, or prostate. Other possible causes include: ??? Kidney stones. ??? Cancer of the urinary tract. ??? Too much calcium in the urine. ??? Conditions that are passed from parent to child (inherited conditions). ??? Exercise that requires a lot of energy. Infections can usually be treated with medicine, and a kidney stone usually will pass through your urine. If neither of these is the cause of your hematuria, more tests may be needed to identify the cause of your symptoms. It is very important to tell your health care provider about any blood in your urine, even if it is painless or the blood stops without treatment. Blood in the urine, when it happens and then stops and then happens again, can be a symptom of a very serious condition, including cancer. There is no pain in the initial stages of many urinary cancers. Follow these instructions at home: Medicines ??? Take swqi-mda-mhnvlfd and prescription medicines only as told by your health care provider. ??? If you were prescribed an antibiotic medicine, take it as told by your health care provider. Do not stop taking the antibiotic even if you start to feel better. Eating and drinking ??? Drink enough fluid to keep your urine pale yellow. It is recommended that you drink 3???4 quarts (2.8???3.8 L) a day. If you have been diagnosed with an infection, drinking cranberry juice in addition to large amounts of water is recommended. ??? Avoid caffeine, tea, and carbonated beverages. These tend to irritate the bladder. ??? Avoid alcohol because it may irritate the prostate (in males). General instructions ??? If you have been diagnosed with a kidney stone, follow your health care provider's instructions about straining your urine to catch the stone. ??? Empty your bladder often. Avoid holding urine for long periods of time. ??? If you are female: ? After a bowel movement, wipe from front to back and use each piece of toilet paper only once. ? Empty your bladder before and after sex. ??? Pay attention to any changes in your symptoms. Tell your health care provider about any changes or any new symptoms. ??? It is up to you to get the results of any tests. Ask your health care provider, or the department that is doing the test, when your results will be ready. ??? Keep all follow-up visits. This is important. Contact a health care provider if: ??? You develop back pain. ??? You have a fever or chills. ??? You have nausea or vomiting. ??? Your symptoms do not improve after 3 days. ??? Your symptoms get worse. Get help right away if: ??? You develop severe vomiting and are unable to take medicine without vomiting. ??? You develop severe pain in your back or abdomen even though you are taking medicine. ??? You pass a large amount of blood in your urine. ??? You pass blood clot (more content not included)... Normal [facility] Provider Letteron 01-04-2025 Provider Letter Provider Letter January 04, [address] [facility] [address] [place] [address] : 1995 To Whom It May Concern, Please excuse above patient from work. The patient had an appointment at [facility] today, 01/04/25. May Return to Work On: 01/04/25 Restrictions: None Comments: _ Sincerely, Michaelle Morales PA-C [facility] [address] [place] [id number] Normal [facility] Urine Cytology ([facility])on 0 01-04-2025 Method of Extraction Bladder Urine Normal [facility] Comment on above: Performed By: #### 1 [id number] #### [facility] [address] [place] [address] Number of Jars 1 Invalid Interpretation Code [facility] Comment on above: Performed By: #### 1 [id number] #### [facility] [address] [place] [address] Specimen Clean Catch Normal [facility] Comment on above: Performed By: #### 1 [id number] #### [facility] [address] [place] [address] Type of Service Consult Normal [facility] Comment on above: Performed By: #### 1 [id number] #### [facility] [address] [place] [address] Urology Office/Clinic Noteon 01-04-2025 Urology Office/Clinic Note Urology Office/Clinic Note Chief Complaint new patient HPI Staff 29 year old female new patient referred for gross hematuria Patient has dysuria and gross hematuria. Patient has flank and abdomen pain. stress incontinence, have to make herself urinate, cramping History of Present Illness I have reviewed and verified the staff HPI to be accurate for this encounter. Review of Systems PHQ Score Initial Depression Screen Score: 0 SCORE no fever, chills, malaise, myalgia. no abdominal pain, nausea, vomiting. Physical Exam Vitals & Measurements HR: 72(Peripheral) BP: 124/79 HT: 163 cm HT: 64 in WT: 104.6 kg WT: 230.603 lb BMI: 39.37 General: Well developed, well nourished, in no acute distress. 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 Krishna Hernandez for gross hematuria wo concurrent infection BBSQ 5 1. Gross hematuria (R31.0: Gross hematuria) Micro UA 12/07/24 - RBC 2-5 UCX 12/07/24 - 50K mixed bacterial skin contaminants CTAP w/wo contrast 12/21/24 [facility] - no acute findings Labs 12/21/24 - Cr 0.57, GFR > 60 [facility] ER 12/28/24 - c/o gross hematuria and R flank pain CTAP wo con 12/28/24 - multiple phleboliths around ureters distally in pelvis, no obvious obstructive uropathy, no hydro UA today w/ large blood and trace leuks *She denies sxs of infection Shares painless gross hematuria first occurred 1.5 months ago. She was evaluated by [facility] (Dr. Olmstead), he exhanged her IUD but blood persisted. She is unsure if blood is from vaginal or urological source. Has seen bright red & light pink in toilet, but also blood on toilet paper with wiping. Hematuria occurs almost daily. Unsure of LMP since IUD placed. Current every day smoker x 15 years. No occupational exposures. Family history of breast CA in grandmother. Discussed potential etiologies and implications of hematuria with patient. These include: trauma, Tumor, infection/inflammat ion, stones, period/menses (pseudohematuria), obstructive uropathy (urolithiasis, stricture, etc), nephritis, Tuberculosis, thrombosis, and hematologic. Urologic malignancy is more common in patients with gross hematuria (23%) than in patient with microscopic hematuria (5%). In adults with microscopic hematuria, the initial evaluation fails to identify an etiology in 43% of patients. Approximately 1-3% of these patients eventually develop a urologic malignancy. In adults with gross hematuria, the initial evaluation fails to identify an etiology in 8% of patients. Approximately, 18% of these patients eventually develop a urologic malignancy. Work-up needed: 1. Urine cytology 2. CT urogram. Recent CT scans negative for acute findings (see above) 3. Cystoscopy Discussed options. The patient is aware that a distinct etiology of the hematuria may not be clear upon conclusion of the workup. Will initiate hematuria workup to include urine cytology (send today). A cystoscopy will be scheduled to rule out lower urinary tract pathology. The rationale for this workup has been discussed, and all questions have been answered. -Send urine for cytology today -Schedule cystoscopy. The risks and benefits for cystoscopy have been discussed. The risks include bleeding, infection, and irritation of the bladder and urinary channel, among others. The patient, after being informed of procedural details and after questions have been answered, wishes to proceed. Full informed consent has been obtained. Will order Local anesthesia. -F/U pending cysto Ordered: [id number] Measure Post Void residual urine and/or bladder capacity by US- non-imaging Urnls Dip Stick Auto w/o Microscopy POC 92264 2. Smoker (F17.200: Nicotine dependence, unspecified, uncomplicated) Increased risk of urothelial CA -Smoking cessation encouraged Follow-up With When Contact Information Michaelle Morales PA-C, URL Additional Instructions: F/U pending cysto Patient Education Hematuria, Adult Problem List/Past Medical History Ongoing Acute infective bronchitis Blood in urine Elevated blood-pressure reading without diagnosis of hypertension Enzyme level - finding Gross hematuria Hypertensive disorder Migraine Nausea and vomiting Obesity Recurrent major depression SARS-CoV-2 detected Status migrainosus Streptococcal sore throat Submandibular lymphadenopathy Suicidal thoughts Historical No qualifying data Medications citalopram 40 mg Tab, 40 mg= 1 tab(s), Oral, Daily multivitamin Allergies doxycycline (throwing up, Upset stomach) Social History Alcohol Current, Wine, 1-2 times per month, 01/04/2025 Tobacco 10 or more cigarettes (1/2 pack or more)/day in last 30 days Tobacco Use:. Cigarettes, 01/04/2025 Lab Results Ambulatory Point of Care Results Bilirubin Urine Dipstick: Negative (01/04/25 09:27:00) Blood Urine Dipstick: 3+ Large (01/04/25 09:27:00) Glucose Urine Dipstick: Negative (01/04/25 09:27:00) Ketones Urine Dipstick: Negative (01/04/25 09:27:00) Leuko (more content not included)... Normal [facility] Comment on above: Result Comment: Elec tronically Signed By: Michaelle Morales PA-C\.br\Date and Time Signed: 01/04/25 10:44 EDT CBC WITH AUTO DIFFERENTIALon 12-28-2024 BASOPHILS ABSOLUTE COUNT (10*3/UL) BY AUTOMATED COUNT 0.0 10*3/uL Normal 0.0-0.2 [facility] Comment on above: Performed By: #### C BCA, BMP #### [facility] ([id number]) [address] [place] [address], [place] [address] BASOPHILS RELATIVE PERCENT BY AUTOMATED COUNT 0.3 % Normal [facility] Comment on above: Performed By: #### C SUJEY, BMP #### [facility] ([id number]) [address] [place] [address] 79431 CELLAVISION DIFFERENTIAL TYPE AUTOMATED DIFFERENTIAL Normal [facility] Comment on above: Performed By: #### C SUJEY, BMP #### [facility] ([id number]) [address] [place] [address] 87029 Eosinophils (Bld) [#/Vol] 0.1 10*3/uL Normal 0.0-0.4 [facility] Comment on above: Performed By: #### C SUJEY, BMP #### [facility] ([id number]) [address] [place] [address] 82504 EOSINOPHILS RELATIVE PERCENT BY AUTOMATED COUNT 1.1 % Normal [facility] Comment on above: Performed By: #### C SUJEY, BMP #### [facility] ([id number]) [address] [place] [address] 13954 Erythrocyte distribution width (RBC) [Ratio] 13.2 % Normal 11.5-15 [facility] Comment on above: Performed By: #### C SUJEY, BMP #### [facility] ([id number]) [address] [place] [address] 72013 Hematocrit (Bld) [Volume fraction] 42.4 % Normal 35-47 [facility] Comment on above: Performed By: #### C SUJEY, BMP #### [facility] ([id number]) [address] [place] [address] 85278 Hemoglobin (Bld) [Mass/Vol] 14.5 g/dL Normal 11.7-15.5 [facility] Comment on above: Performed By: #### C SUJEY, BMP #### [facility] ([id number]) [address] [place] [address] 24815 LYMPHOCYTES ABSOLUTE COUNT (10*3/UL) BY AUTOMATED COUNT 2.1 10*3/uL Normal 1.0-3.5 [facility] Comment on above: Performed By: #### C SUJEY, BMP #### [facility] ([id number]) [address] [place] [address] 70257 LYMPHOCYTES RELATIVE PERCENT BY AUTOMATED COUNT 24.4 % Normal [facility] Comment on above: Performed By: #### C SUJEY, BMP #### [facility] ([id number]) [address] [place] [address] 59042 MCH (RBC) [Entitic mass] 29.6 pg Normal 27-34 [facility] Comment on above: Performed By: #### C SUJEY, BMP #### [facility] ([id number]) [address] [place] [address] 69978 MCHC (RBC) [Mass/Vol] 34.2 g/dL Normal 32-36 [facility] Comment on above: Performed By: #### C SUJEY, BMP #### [facility] ([id number]) [address] [place] [address] 04213 MCV (RBC) [Entitic vol] 87 fL Normal 80-100 [facility] Comment on above: Performed By: #### C BCA, BMP #### [facility] ([id number]) [address] [place] [address] 62166 MONOCYTES ABSOLUTE COUNT (10*3/UL) BY AUTOMATED COUNT 0.4 10*3/uL Normal 0.0-0.9 [facility] Comment on above: Performed By: #### C BCA, BMP #### [facility] ([id number]) [address] [place] [address] 16523 MONOCYTES RELATIVE PERCENT BY AUTOMATED COUNT 4.6 % Normal [facility] Comment on above: Performed By: #### C BCA, BMP #### [facility] ([id number]) [address] [place] [address] 64816 NEUTROPHILS ABSOLUTE COUNT BY AUTOMATED COUNT 5.9 10*3/uL Normal 1.5-6.6 [facility] Comment on above: Performed By: #### C SUJEY, BMP #### [facility] ([id number]) [address] [place] [address] 19614 NEUTROPHILS RELATIVE PERCENT BY AUTOMATED COUNT 69.6 % Normal [facility] Comment on above: Performed By: #### C SUJEY, BMP #### [facility] ([id number]) [address] [place] [address] 07107 Platelet mean volume (Bld) [Entitic vol] 8.1 fL Normal 7-12 [facility] Comment on above: Performed By: #### Davis RM, BMP #### [facility] ([id number]) [address] [place] [address] 17329 Platelets (Bld) [#/Vol] 320 10*3/uL Normal 150-450 [facility] Comment on above: Performed By: #### C SUJEY, BMP #### [facility] ([id number]) [address] [place] [address] 10624 RBC COUNT 4.90 X10E12/L Normal 3.8-5.2 [facility] Comment on above: Performed By: #### C SUJEY, BMP #### [facility] ([id number]) [address] [place] [address] 06612 WBC (Bld) [#/Vol] 8.5 10*3/uL Normal 4-11 [facility] Comment on above: Performed By: #### C SUJEY, BMP #### [facility] ([id number]) [address] [place] [address] 60425 COMPREHENSIVE METABOLIC PANE Fernando 12-28-2024 Albumin [Mass/Vol] 4.0 g/dL Normal 3.2-5.3 [facility] Comment on above: Performed By: #### C SUJEY, BMP #### [facility] ([id number]) [address] [place] [address] 92238 ALP [Catalytic activity/Vol] 81 U/L Normal 39-130 [facility] Comment on above: Performed By: #### C BCA, BMP #### [facility] ([id number]) [address] [place] [address] 33110 ALT [Catalytic activity/Vol] 46 U/L High <=31 [facility] Comment on above: Performed By: #### C BCA, BMP #### [facility] ([id number]) [address] [place] [address] 50992 Anion gap [Moles/Vol] 6 mmol/L Normal 5-15 [facility] Comment on above: Performed By: #### C BCA, BMP #### [facility] ([id number]) [address] [place] [address] 85655 AST [Catalytic activity/Vol] 30 U/L Normal <=41 [facility] Comment on above: Performed By: #### C BCA, BMP #### [facility] ([id number]) [address] [place] [address] 62773 Bilirubin [Mass/Vol] 0.9 mg/dL Normal 0.3-1.2 [facility] Comment on above: Performed By: #### C BCA, BMP #### [facility] ([id number]) [address] [place] [address] 44944 Calcium [Mass/Vol] 8.9 mg/dL Normal 8.5-10.5 [facility] Comment on above: Performed By: #### C BCA, BMP #### [facility] ([id number]) [address] [place] [address] 82066 Chloride [Moles/Vol] 106 mmol/L Normal 98-109 [facility] Comment on above: Performed By: #### C BCA, BMP #### [facility] ([id number]) [address] [place] [address] 13455 CO2 [Moles/Vol] 23 mmol/L Normal 22-32 [facility] Comment on above: Performed By: #### C BCA, BMP #### [facility] ([id number]) [address] [place] [address] 21388 Creatinine [Mass/Vol] 0.57 mg/dL Normal 0.40-1.00 [facility] Comment on above: Result Comment: METH OD TRACEABLE TO IDMS STANDARD Performed By: #### C SUJEY, BMP #### [facility] ([id number]) [address] [place] [address] 78127 EGFR (CKD-EPI) NON-RACE DEPENDENT >^90 Normal >=60 [facility] Comment on above: Result Comment: eGFR not reported due to non-numeric value for Creatinine. EGFR not calculated due to patient's gender not being defined. Reported eGFR is based on the CKD-EPI 2021 equation that does not use a race coefficient. Performed By: #### C SUJEY, BMP #### [facility] ([id number]) [address] [place] [address] 37726 Glucose [Mass/Vol] 121 mg/dL High 65-99 [facility] Comment on above: Performed By: #### C BCA, BMP #### [facility] ([id number]) [address] [place] [address] 70168 Potassium [Moles/Vol] 3.7 mmol/L Normal 3.5-5.0 [facility] Comment on above: Performed By: #### C BCA, BMP #### [facility] ([id number]) [address] [place] [address] 76757 Protein [Mass/Vol] 7.3 g/dL Normal 6.0-8.0 [facility] Comment on above: Performed By: #### C BCA, BMP #### [facility] ([id number]) [address] [place] [address] Sodium [Moles/Vol] 135 mmol/L Normal 134-146 [facility] Comment on above: Performed By: #### C SUJEY, BMP #### [facility] ([id number]) [address] [place] [address] Urea nitrogen [Mass/Vol] 8 mg/dL Normal 5-23 [facility] Comment on above: Performed By: #### C BCA, BMP #### [facility] ([id number]) [address] [place] [address] ABDOMEN AND PELVIS WO CON Ton 12-28-2024 CT ABDOMEN AND PELVIS WO CONT CT ABDOMEN AND PELVIS WO CONT History: Kidney stones suspected right-sided pain.. Exam/Technique: [...] dose to as low as reasonably achievable. 7 Finalized by Jin Salas MD on 12/28/2024 4:14 PM Normal [facility] POCT NURSING URINE MACROSCOP IC UAon 12-28-2024 BILIRUBIN NATACHA Negative Normal Negative [facility] Comment on above: Performed By: #### C SUJEY, BMP #### [facility] ([id number]) [address] [place] [address] [place] [address] BLOOD/HGB NATACHA Trace Abnormal Negative [facility] Comment on above: Performed By: #### C SUJEY, BMP #### [facility] ([id number]) [address] [place] [address] [place] [address] GLUCOSE NATACHA Negative Normal Negative [facility] Comment on above: Performed By: #### C SUJEY, BMP #### [facility] ([id number]) [address] [place] [address] [place] [address] KETONES NATACHA Negative Normal Negative [facility] Comment on above: Performed By: #### C SUJEY, BMP #### [facility] ([id number]) [address] [place] [address] 08045 LEUKOCYTE ESTERASE NATACHA Trace Abnormal Negative [facility] Comment on above: Performed By: #### C SUJEY, BMP #### [facility] ([id number]) [address] [place] [address] [place] [address] NITRITE NATACHA Negative Normal Negative [facility] Comment on above: Performed By: #### C SUJEY, BMP #### [facility] ([id number]) [address] [place] [address] 67018 PH NATACHA 7.5 Normal 5.0, 6.0, 6.5, 7.0, 7.5, 8.0, 8.5, 5.5 [facility] Comment on above: Performed By: #### C SUJEY, BMP #### [facility] ([id number]) [address] [place] [address] 49762 PROTEIN NATACHA Negative Normal Negative [facility] Comment on above: Performed By: #### C BCA, BMP #### [facility] ([id number]) [address] [place] [address] [place] [address] SPECIFIC GRAVITY NATACHA 1.020 Normal 1.010, 1.015, 1.020, 1.025 [facility] Comment on above: Performed By: #### C BCA, BMP #### [facility] ([id number]) [address] [place] [address] 44226 UROBILINOGEN NATACHA 1.0 E.U./dL [facility] Comment on above: Performed By: #### C BCA, BMP #### [facility] ([id number]) [address] [place] [address] 97979 POCT , URINE (NUCG) on 12-28-2024 Beta HCG ( test) Ql (U) Negative Normal Negative, Indeterminate [facility] Comment on above: Performed By: #### C BCA, BMP #### [facility] ([id number]) [address] [place] [address] 67439 Basophils Auto (Bld) [#/Vol] Ordered By: Krishna Hernandez on 12-21-2024 Basophils (Bld) [#/Vol] 0.0 10 3/uL 0.0-0.1 [facility] Basophils/100 WBC Auto (Bld) Ordered By: Krishna Hernandez on 12-21-2024 Basophils/100 WBC (Bld) 0.3 % 0.2-2.0 [facility] Eosinophils/100 WBC Auto (Bl d)Ordered By: Krishna Hernandez on 12-21-2024 Eosinophils/100 WBC (Bld) 1.4 % 0.9-7.0 [facility] Erythrocyte distribution wid th Auto (RBC) [Ratio]Ordered By: Krishna Hernandez on 12-21-2024 Erythrocyte distribution width (RBC) [Ratio] 12.3 % 11.0-15.0 [facility] Globulin Calc (S) [Mass/Vol] Ordered By: Krishna Hernandez on 12-21-2024 Globulin (S) [Mass/Vol] 3.1 g/dL F [facility] Glomerular filtration rate ( GFR) estimation in non- AmericanOrdered By: Krishna Hernandez on 12-21-2024 GFR/1.73 sq M.predicted among non-blacks MDRD (S/P/Bld) [Vol rate/Area] mL/min/{1.73_m2} >=60 mL/min/1.73m 2 [facility] Hematocrit Auto (Bld) [Volum e fraction]Ordered By: Krishna Hernandez on 12-21-2024 Hematocrit (Bld) [Volume fraction] 41.1 % 36.0-48.0 [facility] Hemoglobin [Mass/volume] in BloodOrdered By: Krishna Hernandez on 12-21-2024 Hemoglobin (Bld) [Mass/Vol] 14.0 g/dL 12.0-16.0 [facility] Laboratory - Chemistry and C hemistry - challengeOrdered By: Krishna Hernandez on 12-21-2024 Albumin [Mass/Vol] 3.3 g/dL Low 3.4-5.0 [facility] ALP [Catalytic activity/Vol] 86 U/L 46-116 [facility] ALT [Catalytic activity/Vol] 51 U/L 14-59 [facility] AST [Catalytic activity/Vol] 19 U/L 15-37 [facility] Bilirubin [Mass/Vol] 0.7 mg/dL 0.2-1.0 [facility] Calcium [Mass/Vol] 8.7 mg/dL 8.5-10.1 [facility] Chloride [Moles/Vol] 103 mmol/L 98-107 [facility] CO2 [Moles/Vol] 29.3 mmol/L 21.0-32.[address] [facility] Creatinine [Mass/Vol] 0.57 mg/dL 0.55-1.02 [facility] GFR/1.73 sq M.predicted MDRD (S/P/Bld) [Vol rate/Area] mL/min/{1.73_m2} >=60 mL/min/1.73m 2 [facility] Glucose [Mass/Vol] 91 mg/dL 74-106 [facility] Potassium [Moles/Vol] 4.3 mmol/L 3.5-5.1 [facility] Protein [Mass/Vol] 6.4 g/dL 6.4-8.2 [facility] Sodium [Moles/Vol] 139 mmol/L 136-145 [facility] Urea nitrogen [Mass/Vol] 8.0 mg/dL 7.0-18.0 [facility] Urea nitrogen/Creatinine [Mass ratio] 14.0 mg/mg [facility] Laboratory - Hematology and Cell countsOrdered By: Krishna Hernandez on 12-21-2024 Immature granulocytes/100 WBC (Bld) 0.4 % 0.0-0.5 [facility] Leukocytes [#/volume] correc kenneth for nucleated erythrocytes in Blood by Automated counOrdered By: Krishna Hernandez on 12-21-2024 WBC corrected for nucl RBC Auto (Bld) [#/Vol] 9.7 10 3/uL 4.0-11.0 [facility] Lymphocytes Auto (Bld) [#/Vo l]Ordered By: Krishna Hernandez on 12-21-2024 Lymphocytes (Bld) [#/Vol] 2.7 10 3/uL 1.2-3.8 [facility] Lymphocytes/100 WBC Auto (Bl d)Ordered By: Krishna Hernandez on 12-21-2024 Lymphocytes/100 WBC (Bld) 27.6 % 20.5-60.0 [facility] MCH Auto (RBC) [Entitic mass ]Ordered By: Krishna Hernandez on 12-21-2024 MCH (RBC) [Entitic mass] 30.5 pg 26.7-34.0 [facility] MCHC Auto (RBC) [Mass/Vol]Or dered By: Krishna Hernandez on 12-21-2024 MCHC (RBC) [Mass/Vol] 34.1 g/dL 29.9-35.2 [facility] MCV Auto (RBC) [Entitic vol] Ordered By: Krishna Hernandez on 12-21-2024 MCV (RBC) [Entitic vol] 89.5 fL 81.0-99.0 [facility] Monocytes Auto (Bld) [#/Vol] Ordered By: Krishna Hernandez on 12-21-2024 Monocytes (Bld) [#/Vol] 0.5 10 3/uL 0.3-0.8 [facility] Monocytes/100 WBC Auto (Bld) Ordered By: Krishna Hernandez on 12-21-2024 Monocytes/100 WBC (Bld) 5.1 % 1.7-12.0 [facility] Neutrophils Auto (Bld) [#/Vo l]Ordered By: Krishna Hernandez on 12-21-2024 Neutrophils (Bld) [#/Vol] 6.3 10 3/uL 1.4-6.5 [facility] Neutrophils/100 WBC Auto (Bl d)Ordered By: Krishna Hernandez on 12-21-2024 Neutrophils/100 WBC (Bld) 65.2 % 43.0-75.0 [facility] No Panel InformationOrdered By: Krishna Hernandez on 12-21-2024 Eosinophils # (Auto) 0.1 10 3/uL 0.0-0.7 [facility] Immature Granulocyte # (Auto) 0.04 10 3/uL High 0.00-0.03 [facility] Platelet mean volume Auto (B ld) [Entitic vol]Ordered By: Krishna Hernandez on 12-21-2024 Platelet mean volume (Bld) [Entitic vol] 9.5 fL 9.5-13.5 [facility] Platelets Auto (Bld) [#/Vol] Ordered By: Krishna Hernandez on 12-21-2024 Platelets (Bld) [#/Vol] 343 10 3/uL 150-450 [facility] RBC Auto (Bld) [#/Vol]Ordere d By: Krishna Hernandez on 12-21-2024 RBC (Bld) [#/Vol] 4.59 10 6/uL 4.20-5.40 [facility] Serum or plasma albumin/glob ulin mass ratioOrdered By: Krishna Hernandez on 12-21-2024 Albumin/Globulin [Mass ratio] 1.1 {ratio} [facility] Serum or plasma anion gap de terminationOrdered By: Krishna Hernandez on 12-21-2024 Anion gap [Moles/Vol] 11.0 mmol/L [facility] Laboratory - Chemistry and C hemistry - challengeOrdered By: Krishna Hernandez on 12-07-2024 Bilirubin Ql (U) Negative NEGATIVE [facility] Glucose (U) [Mass/Vol] Negative NEGATIVE [facility] Ketones Ql (U) Negative NEGATIVE [facility] pH (U) 6.5 [pH] 5.0-9.0 [facility] Specific gravity (U) [Rel density] 1.010 1.005-1.025 [facility] Urobilinogen Qn (U) 0.2 {Melissa'U}/dL 0.2-1.0 [facility] Laboratory - Specimen inform ationOrdered By: Krishna Hernandez on 12-07-2024 Appearance (U) CLEAR CLEAR [facility] Color (U) LT. YELLOW YELLOW [facility] Laboratory - UrinalysisOrder ed By: Krishna Hernandez on 12-07-2024 Leukocyte esterase Test strip Ql (U) SMALL Abnormal NEGATIVE [facility] Mucus Ql (Urine sed) NONE SEEN NONE SEEN [facility] Nitrite Ql (U) Negative NEGATIVE [facility] Protein Ql (U) Negative NEG/TRACE [facility] No Panel InformationOrdered By: Krishna Hernandez on 12-07-2024 Urine Bacteria TRACE #/HPF Abnormal NONE SEEN [facility] Urine Occult Blood MODERATE Abnormal NEGATIVE [facility] Urine Other Casts NONE SEEN #/LPF [facility]ONE [facility] Urine Other Crystals None Seen #/HPF None Seen [facility] Urine RBC 2-5 #/HPF Abnormal 0-2 [facility] Urine Squamous Epithelial Cells MODERATE #/LPF Abnormal NONE/RARE [facility] Urine WBC 0-2 #/HPF Abnormal NONE SEEN [facility] Urine Cultureon 12-07-2024 Bacteria identified Cx Nom (U) 50,000 colonies/ml mixed bacterial skin contaminants 2 Days PERFORMED BY: [place] [address] PATHOLOGIST [employer]ARNESS [employer]IGGER ERIC BRANDT M.D. Normal [facility] Comment on above: Performed By: #### C UU #### [address] ALL CBC WITH AUTO DIFFon BASOPHILS ABSOLUTE AUTO 0 N [facility] Basophils/100 WBC (Bld) 0.4 % 0.2 - 2.0 % [facility] Eosinophils/100 WBC (Bld) 2.4 % 0.9 - 7.0 % [facility] Erythrocyte distribution width (RBC) [Ratio] 12.4 % 11.0 - 15.0 % [facility] Hematocrit (Bld) [Volume fraction] 40.5 % 36.0 - 48.0 % [facility] Hemoglobin (Bld) [Mass/Vol] 13.7 g/dL 12.0 - 16.0 g/dL [facility] IMMATURE GRANULOCYTES ABS AUTO 0.02 [facility] Immature granulocytes/100 WBC (Bld) 0.4 % 0.0 - 0.5 % [facility] Interpretation and review of laboratory results Abnormal [facility] LYMPHOCYTES ABSOLUTE AUTO 1.8 [facility] Lymphocytes/100 WBC (Bld) 39.6 % 20.5 - 60.0 % [facility] MCH (RBC) [Entitic mass] 30.4 pg 26.7 - 34.0 pg [facility] MCHC (RBC) [Mass/Vol] 33.8 g/dL 29.9 - 35.2 g/dL [facility] MCV (RBC) [Entitic vol] 90 fL 81.0 - 99.0 fL [facility] MONOCYTES ABSOLUTE AUTO 0.4 [facility] Monocytes/100 WBC (Bld) 8 % 1.7 - 12.0 % [facility] NEUTROPHILS ABSOLUTE AUTO 2.3 [facility] Neutrophils/100 WBC (Bld) 49.2 % 43.0 - 75.0 % [facility] Platelet mean volume (Bld) [Entitic vol] 9.4 fL Low 9.5 - 13.5 fL [facility]H EO # 0.1 [facility] PLT 297 [facility] RBC 4.5 [facility] WBC 4.6 [facility] Basophils Auto (Bld) [#/Vol] on 08-08-2024 Basophils (Bld) [#/Vol] Automated basoph il count 0.0-0.1 [facility] Basophils/100 WBC Auto (Bld) on 08-08-2024 Basophils/100 WBC (Bld) Automated basoph il % 0.2-2.0 [facility] Eosinophils/100 WBC Auto (Bl d)on 08-08-2024 Eosinophils/100 WBC (Bld) Automated eosinophil % 0.9-7.0 [facility] Erythrocyte distribution wid th Auto (RBC) [Ratio]on 08-08-2024 Erythrocyte distribution width (RBC) [Ratio] Erythrocyte distribution width [Ratio] by Automated count 11.0-15.0 [facility] Estimated glomerular filtrat ion rate (GFR) non- Americanon 08-08-2024 GFR/1.73 sq M.predicted among non-blacks MDRD (S/P/Bld) [Vol rate/Area] Estimated glomerular filtration rate (GFR) non- >=60 mL/min/1.73m 2 [facility] Globulin Calc (S) [Mass/Vol] on 08-08-2024 Globulin (S) [Mass/Vol] Serum globulin measurement by calculation (mass/volume) [facility] Hematocrit Auto (Bld) [Volum e fraction]on 08-08-2024 Hematocrit (Bld) [Volume fraction] Hematocrit [Volume Fraction] of Blood by Automated count 36.0-48.0 [facility] Hemoglobin [Mass/volume] in Bloodon 08-08-2024 Hemoglobin (Bld) [Mass/Vol] Hemoglobin [Mass/volume] in Blood 12.0-16.0 [facility] Laboratory - Chemistry and C hemistry - challengeon 08-08-2024 Albumin [Mass/Vol] 3.7 g/dL 3.4-5.0 [facility] ALP [Catalytic activity/Vol] 78 U/L 46-116 [facility] ALT [Catalytic activity/Vol] 33 U/L 14-59 [facility] AST [Catalytic activity/Vol] 17 U/L 15-37 [facility] Bilirubin [Mass/Vol] 0.5 mg/dL 0.2-1.0 [facility] Calcium [Mass/Vol] 9.1 mg/dL 8.5-10.1 [facility] Chloride [Moles/Vol] 105 mmol/L 98-107 [facility] CO2 [Moles/Vol] 27.4 mmol/L 21.0-32.[address] [facility] Creatinine [Mass/Vol] 0.76 mg/dL 0.55-1.02 [facility] GFR/1.73 sq M.predicted MDRD (S/P/Bld) [Vol rate/Area] mL/min/{1.73_m2} >=60 mL/min/1.73m 2 [facility] Glucose [Mass/Vol] 79 mg/dL 74-106 [facility] Potassium [Moles/Vol] 4.1 mmol/L 3.5-5.1 [facility] Protein [Mass/Vol] 6.7 g/dL 6.4-8.2 [facility] Sodium [Moles/Vol] 141 mmol/L 136-145 [facility] Urea nitrogen [Mass/Vol] 8.0 mg/dL 7.0-18.0 [facility] Urea nitrogen/Creatinine [Mass ratio] 10.5 mg/mg [facility] Laboratory - Hematology and Cell countson 08-08-2024 Immature granulocytes/100 WBC (Bld) 0.2 % 0.0-0.5 [facility] Leukocytes [#/volume] correc kenneth for nucleated erythrocytes in Blood by Automated counon 08-08-2024 WBC corrected for nucl RBC Auto (Bld) [#/Vol] Leukocytes [#/volume] corrected for nucleated erythrocytes in Blood by Automated coun 4.0-11.0 [facility] Lymphocytes Auto (Bld) [#/Vo l]on 08-08-2024 Lymphocytes (Bld) [#/Vol] Lymphocytes [#/volume] in Blood by Automated count 1.2-3.8 [facility] Lymphocytes/100 WBC Auto (Bl d)on 08-08-2024 Lymphocytes/100 WBC (Bld) Lymphocytes/100 leukocytes in Blood by Automated count 20.5-60.0 [facility] MCH Auto (RBC) [Entitic mass ]on 08-08-2024 MCH (RBC) [Entitic mass] MCH [Entitic mass] by Automated count 26.7-34.0 [facility] MCHC Auto (RBC) [Mass/Vol]on 08-08-2024 MCHC (RBC) [Mass/Vol] [facility] [Mass/volume] by Automated count 29.9-35.2 [facility] MCV Auto (RBC) [Entitic vol] on 08-08-2024 MCV (RBC) [Entitic vol] MCV [Entitic volume] by Automated count 81.0-99.0 [facility] Monocytes Auto (Bld) [#/Vol] on 08-08-2024 Monocytes (Bld) [#/Vol] Automated blood monocyte count 0.3-0.8 [facility] Monocytes/100 WBC Auto (Bld) on 08-08-2024 Monocytes/100 WBC (Bld) Automated monocy te % 1.7-12.0 [facility] Neutrophils Auto (Bld) [#/Vo l]on 08-08-2024 Neutrophils (Bld) [#/Vol] Neutrophils [#/volume] in Blood by Automated count 1.4-6.5 [facility] Neutrophils/100 WBC Auto (Bl d)on 08-08-2024 Neutrophils/100 WBC (Bld) Automated neutrophil % 43.0-75.0 [facility] No Panel Informationon 08-08 Eosinophils # (Auto) 0.1 10 3/uL 0.0-0.7 [facility] Immature Granulocyte # (Auto) 0.01 10 3/uL 0.00-0.03 [facility] Platelet mean volume Auto (B ld) [Entitic vol]on 08-08-2024 Platelet mean volume (Bld) [Entitic vol] Platelet mean volume [Entitic volume] in Blood by Automated count 9.5-13.5 [facility] Platelets Auto (Bld) [#/Vol] on 08-08-2024 Platelets (Bld) [#/Vol] Platelets [#/volume] in Blood by Automated count 150-450 [facility] RBC Auto (Bld) [#/Vol]on RBC (Bld) [#/Vol] Erythrocytes [#/volume] in Blood by Automated count 4.20-5.40 [facility] Serum or plasma albumin/glob ulin mass ratioon 08-08-2024 Albumin/Globulin [Mass ratio] Serum or plasma albumin/globulin mass ratio [facility] Serum or plasma anion gap de terminationon 08-08-2024 Anion gap [Moles/Vol] Serum or plasma anion gap determination [facility] Urine Cultureon 08-08-2024 Bacteria identified Cx Nom (U) Urine Culture Results 30,000 colonies/ml Mixed Bacterial Skin Contaminants 2 Days ORGANISM: Kamini albicans (O:CANALB) [place] Count <10,000 PERFORMED BY: [facility] [address] [place] [address] PATHOLOGIST HARNESS RIGGER JAVIER HUIZAR M.D. [place] [facility] Comment on above: Performed By: #### C UU #### [address] US Pelvis transvaginalon EXAM: US PELVIS [...] the left ovary was not visualized. Electronically Signed:Electronical ly signed by NOMI YANG II, MD, PHD at 28-Jul-2024 08:45:45 AM [facility] IMAGING Nomi Yang MD - 07/28/2024 [...] the left ovary was not visualized. Electronically Signed:Electronical ly signed by NOMI YANG II, MD, PHD at 28-Jul-2024 08:45:45 AM [facility] US Pelvis transvaginalOrdere d By: Nomi Yang on 07-28-2024 [facility] Work Phone: IUD Removalon 07-26-2024 Gladis Almanza LPN 08/08/2024 11:15 AM IUD Removal Date/Time: 07/26/2024 2:33 PM Performed by: Jeremy Olmstead DO Authorized by: Jeremy Olmstead DO Consent: Consent obtained: Written Consent given by: Patient Procedure risks and benefits discussed: yes Patient questions answered: yes Patient agrees, verbalizes understanding, and wants to proceed: yes Educational handouts given: yes Instructions and paperwork completed: yes [place] protocol: Patient states understanding of procedure being [...] ultrasound. KUB ordered to view for placement [facility] US PELVIS TRANSVAGINALon US PELVIS TRANSVAGINAL EXAM: [...] the left ovary was not visualized. Electronically Signed:Electronical ly signed by NOMI YANG II, MD, PHD at 28-Jul-2024 08:45:45 AM [facility] Normal Not Available Comment on above: Order Comment: US PE LVIS TRANSVAGINAL No LMP recorded. (Menstrual status: No Periods). 223 lb 1.9 oz US Pelvis transvaginalon Radiology Study observation (narrative) [facility] CBC AND AUTO DIFFon 06-30-19 25 Erythrocyte distribution width (RBC) [Ratio] 12.4 % Normal 11.5-15.0 [facility] Comment on above: Performed By: #### C SUJEY, BMP #### [facility] ([id number]) [address] [place] [address] 50525 Hematocrit (Bld) [Volume fraction] 43.3 % Normal 35-47 [facility] Comment on above: Performed By: #### C SUJEY, BMP #### [facility] ([id number]) [address] [place] [address] 08723 Hemoglobin (Bld) [Mass/Vol] 14.5 g/dL Normal 11.7-15.5 [facility] Comment on above: Performed By: #### C SUJEY, BMP #### [facility] ([id number]) [address] [place] [address] 04600 Lymphocytes (Bld) [#/Vol] 4.7 10*3/uL High 1.0-3.5 [facility] Comment on above: Performed By: #### C BCA, BMP #### [facility] ([id number]) [address] [place] [address] 98859 Lymphocytes/100 WBC (Bld) 33.0 % Normal [facility] Comment on above: Performed By: #### C SUJEY, BMP #### [facility] ([id number]) [address] [place] [address] 94293 MCH (RBC) [Entitic mass] 29.8 pg Normal 27-34 [facility] Comment on above: Performed By: #### C SUJEY, BMP #### [facility] ([id number]) [address] [place] [address] 52154 MCHC (RBC) [Mass/Vol] 33.5 g/dL Normal 32-36 [facility] Comment on above: Performed By: #### C SUJEY, BMP #### [facility] ([id number]) [address] [place] [address] 53611 MCV (RBC) [Entitic vol] 89 fL Normal 80-100 [facility] Comment on above: Performed By: #### C BCA, BMP #### [facility] ([id number]) [address] [place] [address] 53785 Monocytes (Bld) [#/Vol] 0.7 10*3/uL Normal 0-0.9 [facility] Comment on above: Performed By: #### C BCA, BMP #### [facility] ([id number]) [address] [place] [address] 83721 Monocytes/100 WBC (Bld) 5.0 % Normal [facility] Comment on above: Performed By: #### C BCA, BMP #### [facility] ([id number]) [address] [place] [address] 73808 Neutrophils (Bld) [#/Vol] 8.8 10*3/uL High 1.5-6.6 [facility] Comment on above: Performed By: #### C SUJEY, BMP #### [facility] ([id number]) [address] [place] [address] 21351 Platelet mean volume (Bld) [Entitic vol] 7.8 fL Normal 7-12 [facility] Comment on above: Performed By: #### C SUJEY, BMP #### [facility] ([id number]) [address] [place] [address] 73912 Platelets (Bld) [#/Vol] 374 10*3/uL Normal 150-450 [facility] Comment on above: Performed By: #### Davis RM, BMP #### [facility] ([id number]) [address] [place] [address] 14323 RBC COUNT 4.86 X10E12/L Normal 3.80-5.20 [facility] Comment on above: Performed By: #### Davis RM, BMP #### [facility] ([id number]) [address] [place] [address] 93573 RBC morphology finding Nom (Bld) NORMAL Normal [facility] Comment on above: Performed By: #### C USJEY, BMP #### [facility] ([id number]) [address] [place] [address] 13504 SEG NEUTROPHIL 62.0 % Normal [facility] Comment on above: Performed By: #### C SUJEY, BMP #### [facility] ([id number]) [address] [place] [address] 79678 WBC (Bld) [#/Vol] 14.2 10*3/uL High 4.0-11.0 [facility] Comment on above: Performed By: #### C BCA, BMP #### [facility] ([id number]) [address] [place] [address] 41544 COMPREHENSIVE METABOLIC PANE Fernando 06-30-2024 Albumin [Mass/Vol] 4.0 g/dL Normal 3.2-5.3 [facility] Comment on above: Performed By: #### C BCA, BMP #### [facility] ([id number]) [address] [place] [address] 52108 ALP [Catalytic activity/Vol] 55 U/L Normal 39-130 [facility] Comment on above: Performed By: #### C BCA, BMP #### [facility] ([id number]) [address] [place] [address] 50126 ALT [Catalytic activity/Vol] 132 U/L High 0-31 [facility] Comment on above: Performed By: #### C BCA, BMP #### [facility] ([id number]) [address] [place] [address] 28972 Anion gap [Moles/Vol] 6 mmol/L Normal 5-15 [facility] Comment on above: Performed By: #### C BCA, BMP #### [facility] ([id number]) [address] [place] [address] 01005 AST [Catalytic activity/Vol] 33 U/L Normal 0-41 [facility] Comment on above: Performed By: #### C BCA, BMP #### [facility] ([id number]) [address] [place] [address] 70189 Bilirubin [Mass/Vol] 0.8 mg/dL Normal 0.3-1.2 [facility] Comment on above: Performed By: #### C BCA, BMP #### [facility] ([id number]) [address] [place] [address] 44468 Calcium [Mass/Vol] 8.4 mg/dL Low 8.5-10.5 [facility] Comment on above: Performed By: #### C SUJEY, BMP #### [facility] ([id number]) [address] [place] [address] 95869 Chloride [Moles/Vol] 104 mmol/L Normal 98-109 [facility] Comment on above: Performed By: #### C SUJEY, BMP #### [facility] ([id number]) [address] [place] [address] 57488 CO2 [Moles/Vol] 23 mmol/L Normal 22-32 [facility] Comment on above: Performed By: #### C SUJEY, BMP #### [facility] ([id number]) [address] [place] [address] 90433 Creatinine [Mass/Vol] 0.69 mg/dL Normal 0.40-1.00 [facility] Comment on above: Result Comment: METH OD TRACEABLE TO IDMS STANDARD Performed By: #### C SUJEY, BMP #### [facility] ([id number]) [address] [place] [address] 11551 eGFR (CKD-EPI) NON-RACE DEPENDENT >90 Normal >59 [facility] Comment on above: Result Comment: Reported eGFR is based on the CKD-EPI 2020 equation that does not use a race coefficient. Performed By: #### C SUJEY, BMP #### [facility] ([id number]) [address] [place] [address] 22562 Glucose [Mass/Vol] 92 mg/dL Normal 65-99 [facility] Comment on above: Performed By: #### C BCA, BMP #### [facility] ([id number]) [address] [place] [address] 74428 Potassium [Moles/Vol] 4.0 mmol/L Normal 3.5-5.0 [facility] Comment on above: Performed By: #### C BCA, BMP #### [facility] ([id number]) [address] [place] [address] Protein [Mass/Vol] 6.8 g/dL Normal 6.0-8.0 [facility] Comment on above: Performed By: #### C BCA, BMP #### [facility] ([id number]) [address] [place] [address] 18657 Sodium [Moles/Vol] 133 mmol/L Low 134-146 [facility] Comment on above: Performed By: #### C BCA, BMP #### [facility] ([id number]) [address] [place] [address] 95395 Urea nitrogen [Mass/Vol] 15 mg/dL Normal 5-23 [facility] Comment on above: Performed By: #### C BCA, BMP #### [facility] ([id number]) [address] [place] [address] NECK SOFT TISSUE W CONTon 06-30-2024 [...] dose to as low as reasonably achievable. 6 Finalized by Kam Barkley MD on 06/30/2024 11:48 AM Normal [facility] CBC AND AUTO DIFFon 06-28-19 25 ABSOLUTE BASOPHIL 0.0 X10E9/L Normal 0.0-0.2 [facility] Comment on above: Performed By: #### C SUJEY, BMP #### [facility] ([id number]) [address] [place] [address] 22926 ABSOLUTE NEUTROPHIL 9.4 X10E9/L High 1.5-6.6 [facility] Comment on above: Performed By: #### C SUJEY, BMP #### [facility] ([id number]) [address] [place] [address] 28523 Basophils/100 WBC (Bld) 0.3 % Normal P [facility] Comment on above: Performed By: #### C SUJEY, BMP #### [facility] ([id number]) [address] [place] [address] 06632 Eosinophils (Bld) [#/Vol] 0.0 10*3/uL Normal 0.0-0.4 [facility] Comment on above: Performed By: #### C BCA, BMP #### [facility] ([id number]) [address] [place] [address] 03359 Eosinophils/100 WBC (Bld) 0.0 % Normal [facility] Comment on above: Performed By: #### C SUJEY, BMP #### [facility] ([id number]) [address] [place] [address] 53086 Erythrocyte distribution width (RBC) [Ratio] 12.6 % Normal 11.5-15.0 [facility] Comment on above: Performed By: #### C SUJEY, BMP #### [facility] ([id number]) [address] [place] [address] 96423 Hematocrit (Bld) [Volume fraction] 39.6 % Normal 35-47 [facility] Comment on above: Performed By: #### C SUJEY, BMP #### [facility] ([id number]) [address] [place] [address] 36579 Hemoglobin (Bld) [Mass/Vol] 13.3 g/dL Normal 11.7-15.5 [facility] Comment on above: Performed By: #### C SUJEY, BMP #### [facility] ([id number]) [address] [place] [address] 75769 Lymphocytes (Bld) [#/Vol] 1.9 10*3/uL Normal 1.0-3.5 [facility] Comment on above: Performed By: #### C SUJEY, BMP #### [facility] ([id number]) [address] [place] [address] 13804 Lymphocytes/100 WBC (Bld) 16.4 % Normal [facility] Comment on above: Performed By: #### C SUJEY, BMP #### [facility] ([id number]) [address] [place] [address] 41438 MCH (RBC) [Entitic mass] 29.8 pg Normal 27-34 [facility] Comment on above: Performed By: #### C SUJEY, BMP #### [facility] ([id number]) [address] [place] [address] 93297 MCHC (RBC) [Mass/Vol] 33.6 g/dL Normal 32-36 [facility] Comment on above: Performed By: #### C SUJEY, BMP #### [facility] ([id number]) [address] [place] [address] 12967 MCV (RBC) [Entitic vol] 89 fL Normal 80-100 [facility] Comment on above: Performed By: #### C SUJEY, BMP #### [facility] ([id number]) [address] [place] [address] 28727 Monocytes (Bld) [#/Vol] 0.4 10*3/uL Normal 0-0.9 [facility] Comment on above: Performed By: #### C SUJEY, BMP #### [facility] ([id number]) [address] [place] [address] 14523 Monocytes/100 WBC (Bld) 3.5 % Normal [facility] Comment on above: Performed By: #### Davis RM, BMP #### [facility] ([id number]) [address] [place] [address] 53413 Neutrophils/100 WBC (Bld) 79.8 % Normal [facility] Comment on above: Performed By: #### Davis RM, BMP #### [facility] ([id number]) [address] [place] [address] 10493 Platelet mean volume (Bld) [Entitic vol] 8.0 fL Normal 7-12 [facility] Comment on above: Performed By: #### C SUJEY, BMP #### [facility] ([id number]) [address] [place] [address] 20902 Platelets (Bld) [#/Vol] 342 10*3/uL Normal 150-450 [facility] Comment on above: Performed By: #### C BCA, BMP #### [facility] ([id number]) [address] [place] [address] 85385 RBC COUNT 4.47 X10E12/L Normal 3.80-5.20 [facility] Comment on above: Performed By: #### C BCA, BMP #### [facility] ([id number]) [address] [place] [address] 04906 WBC (Bld) [#/Vol] 11.8 10*3/uL High 4.0-11.0 [facility] Comment on above: Performed By: #### C BCA, BMP #### [facility] ([id number]) [address] [place] [address] 83954 COMPREHENSIVE METABOLIC PANE Fernando 06-28-2024 Albumin [Mass/Vol] 3.9 g/dL Normal 3.2-5.3 [facility] Comment on above: Performed By: #### C BCA, BMP #### [facility] ([id number]) [address] [place] [address] 01389 ALP [Catalytic activity/Vol] 59 U/L Normal 39-130 [facility] Comment on above: Performed By: #### C BCA, BMP #### [facility] ([id number]) [address] [place] [address] 34966 ALT [Catalytic activity/Vol] 58 U/L High 0-31 [facility] Comment on above: Performed By: #### C BCA, BMP #### [facility] ([id number]) [address] [place] [address] 48426 Anion gap [Moles/Vol] 10 mmol/L Normal 5-15 [facility] Comment on above: Performed By: #### C BCA, BMP #### [facility] ([id number]) [address] [place] [address] 46965 AST [Catalytic activity/Vol] 32 U/L Normal 0-41 [facility] Comment on above: Performed By: #### C SUJEY, BMP #### [facility] ([id number]) [address] [place] [address] 37826 Bilirubin [Mass/Vol] 0.7 mg/dL Normal 0.3-1.2 [facility] Comment on above: Performed By: #### C BCA, BMP #### [facility] ([id number]) [address] [place] [address] 30184 Calcium [Mass/Vol] 8.9 mg/dL Normal 8.5-10.5 [facility] Comment on above: Performed By: #### C SUJEY, BMP #### [facility] ([id number]) [address] [place] [address] 12820 Chloride [Moles/Vol] 103 mmol/L Normal 98-109 [facility] Comment on above: Performed By: #### C SUJEY, BMP #### [facility] ([id number]) [address] [place] [address] 15208 CO2 [Moles/Vol] 22 mmol/L Normal 22-32 [facility] Comment on above: Performed By: #### C SUJEY, BMP #### [facility] ([id number]) [address] [place] [address] 18060 Creatinine [Mass/Vol] 0.59 mg/dL Normal 0.40-1.00 [facility] Comment on above: Result Comment: METH OD TRACEABLE TO IDMS STANDARD Performed By: #### C SUJEY, BMP #### [facility] ([id number]) [address] [place] [address] 37639 eGFR (CKD-EPI) NON-RACE DEPENDENT >90 Normal >59 [facility] Comment on above: Result Comment: Reported eGFR is based on the CKD-EPI 2020 equation that does not use a race coefficient. Performed By: #### C SUJEY, BMP #### [facility] ([id number]) [address] [place] [address] 71717 Glucose [Mass/Vol] 132 mg/dL High 65-99 [facility] Comment on above: Performed By: #### C SUJEY, BMP #### [facility] ([id number]) [address] [place] [address] 44200 Potassium [Moles/Vol] 4.0 mmol/L Normal 3.5-5.0 [facility] Comment on above: Performed By: #### C SUJEY, BMP #### [facility] ([id number]) [address] [place] [address] 40830 Protein [Mass/Vol] 6.7 g/dL Normal 6.0-8.0 [facility] Comment on above: Performed By: #### C SUJEY, BMP #### [facility] ([id number]) [address] [place] [address] 82695 Sodium [Moles/Vol] 135 mmol/L Normal 134-146 [facility] Comment on above: Performed By: #### C SUJEY, BMP #### [facility] ([id number]) [address] [place] [address] 32101 Urea nitrogen [Mass/Vol] 15 mg/dL Normal 5-23 [facility] Comment on above: Performed By: #### C SUJEY, BMP #### [facility] ([id number]) [address] [place] [address] 21195 MAGNESIUMon 06-28-2024 Magnesium [Mass/Vol] 2.3 mg/dL Normal 1.8-2.6 [facility] Comment on above: Performed By: #### C BCA, BMP #### [facility] ([id number]) [address] [place] [address] 59977 CBC AND AUTO DIFFon 06-27-19 25 ABSOLUTE BASOPHIL 0.1 X10E9/L Normal 0.0-0.2 [facility] Comment on above: Performed By: #### C SUJEY, BMP #### [facility] ([id number]) [address] [place] [address] 70985 ABSOLUTE NEUTROPHIL 7.8 X10E9/L High 1.5-6.6 [facility] Comment on above: Performed By: #### C BCA, BMP #### [facility] ([id number]) [address] [place] [address] 40091 Basophils/100 WBC (Bld) 0.7 % Normal [facility] Comment on above: Performed By: #### C SUJEY, BMP #### [facility] ([id number]) [address] [place] [address] 60375 Eosinophils (Bld) [#/Vol] 0.0 10*3/uL Normal 0.0-0.4 [facility] Comment on above: Performed By: #### C SUJEY, BMP #### [facility] ([id number]) [address] [place] [address] 12660 Eosinophils/100 WBC (Bld) 0.1 % Normal [facility] Comment on above: Performed By: #### C SUJEY, BMP #### [facility] ([id number]) [address] [place] [address] 07434 Erythrocyte distribution width (RBC) [Ratio] 12.7 % Normal 11.5-15.0 [facility] Comment on above: Performed By: #### C BCA, BMP #### [facility] ([id number]) [address] [place] [address] 14045 Hematocrit (Bld) [Volume fraction] 38.3 % Normal 35-47 [facility] Comment on above: Performed By: #### C BCA, BMP #### [facility] ([id number]) [address] [place] [address] 06271 Hemoglobin (Bld) [Mass/Vol] 13.2 g/dL Normal 11.7-15.5 [facility] Comment on above: Performed By: #### C BCA, BMP #### [facility] ([id number]) [address] [place] [address] 10184 Lymphocytes (Bld) [#/Vol] 1.4 10*3/uL Normal 1.0-3.5 [facility] Comment on above: Performed By: #### C SUJEY, BMP #### [facility] ([id number]) [address] [place] [address] 49079 Lymphocytes/100 WBC (Bld) 14.5 % Normal [facility] Comment on above: Performed By: #### C SUJEY, BMP #### [facility] ([id number]) [address] [place] [address] 80224 MCH (RBC) [Entitic mass] 30.5 pg Normal 27-34 [facility] Comment on above: Performed By: #### C SUJEY, BMP #### [facility] ([id number]) [address] [place] [address] 86615 MCHC (RBC) [Mass/Vol] 34.5 g/dL Normal 32-36 [facility] Comment on above: Performed By: #### C SUJEY, BMP #### [facility] ([id number]) [address] [place] [address] 90172 MCV (RBC) [Entitic vol] 88 fL Normal 80-100 [facility] Comment on above: Performed By: #### C BCA, BMP #### [facility] ([id number]) [address] [place] [address] 02222 Monocytes (Bld) [#/Vol] 0.3 10*3/uL Normal 0-0.9 [facility] Comment on above: Performed By: #### C BCA, BMP #### [facility] ([id number]) [address] [place] [address] 53559 Monocytes/100 WBC (Bld) 3.3 % Normal [facility] Comment on above: Performed By: #### C SUJEY, BMP #### [facility] ([id number]) [address] [place] [address] [id number] Neutrophils/100 WBC (Bld) 81.4 % Normal [facility] Comment on above: Performed By: #### C SUJEY, BMP #### [facility] ([id number]) [address] [place] [address] [id number] Platelet mean volume (Bld) [Entitic vol] 8.2 fL Normal 7-12 [facility] Comment on above: Performed By: #### C SUJEY, BMP #### [facility] ([id number]) [address] [place] [address] [id number] Platelets (Bld) [#/Vol] 321 10*3/uL Normal 150-450 [facility] Comment on above: Performed By: #### C SUJEY, BMP #### [facility] ([id number]) [address] [place] [address] [id number] RBC COUNT 4.33 X10E12/L Normal 3.80-5.20 [facility] Comment on above: Performed By: #### C SUJEY, BMP #### [facility] ([id number]) [address] [place] [address] [id number] WBC (Bld) [#/Vol] 9.6 10*3/uL Normal 4.0-11.0 [facility] Comment on above: Performed By: #### C SUJEY, BMP #### [facility] ([id number]) [address] [place] [address] [id number] COMPREHENSIVE METABOLIC PANE [facility] 06-27-2024 Albumin [Mass/Vol] 3.6 g/dL Normal 3.2-5.3 [facility] Comment on above: Performed By: #### C BCA, BMP #### [facility] ([id number]) [address] [place] [address] 62417 ALP [Catalytic activity/Vol] 59 U/L Normal 39-130 [facility] Comment on above: Performed By: #### C SUJEY, BMP #### [facility] ([id number]) [address] [place] [address] 20528 ALT [Catalytic activity/Vol] 36 U/L High 0-31 [facility] Comment on above: Performed By: #### C SUJEY, BMP #### [facility] ([id number]) [address] [place] [address] 71416 Anion gap [Moles/Vol] 8 mmol/L Normal 5-15 [facility] Comment on above: Performed By: #### C SUJEY, BMP #### [facility] ([id number]) [address] [place] [address] 67762 AST [Catalytic activity/Vol] 21 U/L Normal 0-41 [facility] Comment on above: Performed By: #### C SUJEY, BMP #### [facility] ([id number]) [address] [place] [address] 36298 Bilirubin [Mass/Vol] 0.7 mg/dL Normal 0.3-1.2 [facility] Comment on above: Performed By: #### C BCA, BMP #### [facility] ([id number]) [address] [place] [address] 76458 Calcium [Mass/Vol] 8.7 mg/dL Normal 8.5-10.5 [facility] Comment on above: Performed By: #### C BCA, BMP #### [facility] ([id number]) [address] [place] [address] 31713 Chloride [Moles/Vol] 108 mmol/L Normal 98-109 [facility] Comment on above: Performed By: #### C SUJEY, BMP #### [facility] ([id number]) [address] [place] [address] 33597 CO2 [Moles/Vol] 21 mmol/L Low 22-32 [facility] Comment on above: Performed By: #### C SUJEY, BMP #### [facility] ([id number]) [address] [place] [address] 86945 Creatinine [Mass/Vol] 0.55 mg/dL Normal 0.40-1.00 [facility] Comment on above: Result Comment: METH OD TRACEABLE TO IDMS STANDARD Performed By: #### C SUJEY, BMP #### [facility] ([id number]) [address] [place] [address] 92900 eGFR (CKD-EPI) NON-RACE DEPENDENT >90 Normal >59 [facility] Comment on above: Result Comment: Reported eGFR is based on the CKD-EPI 2020 equation that does not use a race coefficient. Performed By: #### C SUJEY, BMP #### [facility] ([id number]) [address] [place] [address] 03162 Glucose [Mass/Vol] 141 mg/dL High 65-99 [facility] Comment on above: Performed By: #### C SUJEY, BMP #### [facility] ([id number]) [address] [place] [address] 90467 Potassium [Moles/Vol] 3.8 mmol/L Normal 3.5-5.0 [facility] Comment on above: Performed By: #### C BCA, BMP #### [facility] ([id number]) [address] [place] [address] 23849 Protein [Mass/Vol] 6.5 g/dL Normal 6.0-8.0 [facility] Comment on above: Performed By: #### C BCA, BMP #### [facility] ([id number]) [address] [facility], [place] [address] Sodium [Moles/Vol] 137 mmol/L Normal 134-146 [facility] Comment on above: Performed By: #### C BCA, BMP #### [facility] ([id number]) [address] [place] [address] Urea nitrogen [Mass/Vol] 11 mg/dL Normal 5-23 [facility] Comment on above: Performed By: #### C BCA, BMP #### [facility] ([id number]) [address] [place] [address] NECK SOFT TISSUE W CONTon 06-27-2024 [...] within the supraglottic, glottic or subglottic larynx. Millinery Teacher/Paraphar yngeal: Muscles of mastication are unremarkable. Parapharyngeal fat [...] submandibular and cervical lymph nodes, likely reactive. 4 Finalized by Nawaf Brody on 06/27/2024 10:40 AM Normal [facility] MAGNESIUMon 06-27-2024 Magnesium [Mass/Vol] 2.0 mg/dL Normal 1.8-2.6 [facility] Comment on above: Performed By: #### C SUJEY, BMP #### [facility] ([id number]) [address] [place] [address] 33074 POTASSIUMon 06-27-2024 Potassium [Moles/Vol] 3.9 mmol/L Normal 3.5-5.0 [facility] Comment on above: Performed By: #### C SUJEY, BMP #### [facility] ([id number]) [address] [place] [address] 42624 Troponin I.cardiac High sens itivity method [Mass/Vol]on 06-27-2024 3 HOUR TROP I, HIGH SENSITIVITY <2 Normal <16 [facility] Comment on above: Performed By: #### C SUJEY, BMP #### [facility] ([id number]) [address] [place] [address] 29542 XR CHEST 1 VWon 06-27-2024 XR CHEST 1 VW XR CHEST 1 VW EXAM: XR CHEST 1 VW CLINICAL INFORMATION: CP. COMPARISON: 03/23/2017 FINDINGS: There are no pleural effusions. The lungs are clear and well aerated. Heart size is within normal limits. IMPRESSION: 1. No acute cardiopulmonary disease. 6 Finalized by Kam Barkley MD on 06/27/2024 12:38 PM Normal [facility] CBC AND AUTO DIFFon 06-26-19 25 ABSOLUTE BASOPHIL 0.0 X10E9/L Normal 0.0-0.2 [facility] Comment on above: Performed By: #### C SUJEY CMP, 02314-2 #### [facility] ([id number]) [address] [place] [address] 42164 ABSOLUTE NEUTROPHIL 6.0 X10E9/L Normal 1.5-6.6 [facility] Comment on above: Performed By: #### C SUJEY CMP, 53181-8 #### [facility] ([id number]) [address] [place] [address] 53748 Basophils/100 WBC (Bld) 0.2 % Normal [facility] Comment on above: Performed By: #### C BCA, CMP, 61093-8 #### [facility] ([id number]) [address] [place] [address] 09905 Eosinophils (Bld) [#/Vol] 0.0 10*3/uL Normal 0.0-0.4 [facility] Comment on above: Performed By: #### Davis RM, CMP, 91396-6 #### [facility] ([id number]) [address] [place] [address] 73696 Eosinophils/100 WBC (Bld) 0.4 % Normal [facility] Comment on above: Performed By: #### C BCA, CMP, 25214-0 #### [facility] ([id number]) [address] [place] [address] 16057 Erythrocyte distribution width (RBC) [Ratio] 12.6 % Normal 11.5-15.0 [facility] Comment on above: Performed By: #### Davis BCA, CMP, 22497-2 #### [facility] ([id number]) [address] [place] [address] 86369 Hematocrit (Bld) [Volume fraction] 40.5 % Normal 35-47 [facility] Comment on above: Performed By: #### Davis RM CMP, 11166-9 #### [facility] ([id number]) [address] [place] [address] 58518 Hemoglobin (Bld) [Mass/Vol] 13.7 g/dL Normal 11.7-15.5 [facility] Comment on above: Performed By: #### Davis RM CMP, 90521-0 #### [facility] ([id number]) [address] [place] [address] 92756 Lymphocytes (Bld) [#/Vol] 1.1 10*3/uL Normal 1.0-3.5 [facility] Comment on above: Performed By: #### Davis RM CMP, #### [facility] ([id number]) [address] [place] [address] 23026 Lymphocytes/100 WBC (Bld) 15.5 % Normal [facility] Comment on above: Performed By: #### Davis RM [facility], 97457-7 #### [facility] ([id number]) [address] [place] [address] 45795 MCH (RBC) [Entitic mass] 30.1 pg Normal 27-34 [facility] Comment on above: Performed By: #### Davis RM CMP, #### [facility] ([id number]) [address] [place] [address] 41351 MCHC (RBC) [Mass/Vol] 33.8 g/dL Normal 32-36 [facility] Comment on above: Performed By: #### Davis RM CMP, #### [facility] ([id number]) [address] [place] [address] 45449 MCV (RBC) [Entitic vol] 89 fL Normal 80-100 [facility] Comment on above: Performed By: #### Davis RM CMP, 77856-3 #### [facility] ([id number]) [address] [place] [address] 21326 Monocytes (Bld) [#/Vol] 0.1 10*3/uL Normal 0-0.9 [facility] Comment on above: Performed By: #### Davis RM CMP, #### [facility] ([id number]) [address] [place] [address] 74800 Monocytes/100 WBC (Bld) 1.8 % Normal [facility] Comment on above: Performed By: #### Davis RM CMP, 49452-8 #### [facility] ([id number]) [address] [place] [address] 80197 Neutrophils/100 WBC (Bld) 82.1 % Normal [facility] Comment on above: Performed By: #### Davis RM CMP, 05799-6 #### [facility] ([id number]) [address] [place] [address] 16879 Platelet mean volume (Bld) [Entitic vol] 8.3 fL Normal 7-12 [facility] Comment on above: Performed By: #### Davis RM CMP, #### [facility] ([id number]) [address] [place] [address] 46623 Platelets (Bld) [#/Vol] 265 10*3/uL Normal 150-450 [facility] Comment on above: Performed By: #### Davis RM CMP, #### [facility] ([id number]) [address] [place] [address] 70030 RBC COUNT 4.55 X10E12/L Normal 3.80-5.20 [facility] Comment on above: Performed By: #### C BCA, CMP, #### [facility] ([id number]) [address] [place] [address] 16549 WBC (Bld) [#/Vol] 7.3 10*3/uL Normal 4.0-11.0 [facility] Comment on above: Performed By: #### C BCA, CMP, #### [facility] ([id number]) [address] [place] [address] 23240 COMPREHENSIVE METABOLIC PANE Fernando 06-26-2024 Albumin [Mass/Vol] 4.0 g/dL Normal 3.2-5.3 [facility] Comment on above: Performed By: #### C BCA, CMP, 55330-0 #### [facility] ([id number]) [address] [place] [address] 23753 ALP [Catalytic activity/Vol] 67 U/L Normal 39-130 [facility] Comment on above: Performed By: #### C BCA, CMP, 38580-9 #### [facility] ([id number]) [address] [place] [address] 52022 ALT [Catalytic activity/Vol] 43 U/L High 0-31 [facility] Comment on above: Performed By: #### C BCA, CMP, #### [facility] ([id number]) [address] [place] [address] 27854 Anion gap [Moles/Vol] 10 mmol/L Normal 5-15 [facility] Comment on above: Performed By: #### C BCA, CMP, #### [facility] ([id number]) [address] [place] [address] 61360 AST [Catalytic activity/Vol] 33 U/L Normal 0-41 [facility] Comment on above: Performed By: #### C BCA, CMP, #### [facility] ([id number]) [address] [place] [address] 56663 Bilirubin [Mass/Vol] 0.4 mg/dL Normal 0.3-1.2 [facility] Comment on above: Performed By: #### C SHEA RM, 43755-6 #### [facility] ([id number]) [address] [place] [address] 16884 Calcium [Mass/Vol] 8.9 mg/dL Normal 8.5-10.5 [facility] Comment on above: Performed By: #### C SHEA RM, 88228-9 #### [facility] ([id number]) [address] [place] [address] 14205 Chloride [Moles/Vol] 106 mmol/L Normal 98-109 [facility] Comment on above: Performed By: #### C SHEA RM, 64898-3 #### [facility] ([id number]) [address] [place] [address] 81512 CO2 [Moles/Vol] 20 mmol/L Low 22-32 [facility] Comment on above: Performed By: #### C SHEA RM, 99247-2 #### [facility] ([id number]) [address] [place] [address] 50012 Creatinine [Mass/Vol] 0.57 mg/dL Normal 0.40-1.00 [facility] Comment on above: Result Comment: METH OD TRACEABLE TO IDMS STANDARD Performed By: #### C SHEA RM, 83384-8 #### [facility] ([id number]) [address] [place] [address] 14447 eGFR (CKD-EPI) NON-RACE DEPENDENT >90 Normal >59 [facility] Comment on above: Result Comment: Reported eGFR is based on the CKD-EPI 2020 equation that does not use a race coefficient. Performed By: #### C SUJEY CMP, 38139-2 #### [facility] ([id number]) [address] [place] [address] 45724 Glucose [Mass/Vol] 129 mg/dL High 65-99 [facility] Comment on above: Performed By: #### C SHEA RM, 38109-4 #### [facility] ([id number]) [address] [place] [address] 96295 Potassium [Moles/Vol] 4.1 mmol/L Normal 3.5-5.0 [facility] Comment on above: Performed By: #### C SHEA RM, 31114-1 #### [facility] ([id number]) [address] [place] [address] 78426 Protein [Mass/Vol] 7.0 g/dL Normal 6.0-8.0 [facility] Comment on above: Performed By: #### C SUJEY [facility], #### [facility] ([id number]) [address] [place] [address] 54440 Sodium [Moles/Vol] 136 mmol/L Normal 134-146 [facility] Comment on above: Performed By: #### C SUJEY [facility], 71680-0 #### [facility] ([id number]) [address] [place] [address] 30857 Urea nitrogen [Mass/Vol] 9 mg/dL Normal 5-23 [facility] Comment on above: Performed By: #### C SUJEY [facility], 61400-5 #### [facility] ([id number]) [address] [place] [address] 07687 MAGNESIUMon 06-26-2024 Magnesium [Mass/Vol] 2.1 mg/dL Normal 1.8-2.6 [facility] Comment on above: Performed By: #### C SHEA RM, 51706-0 #### [facility] ([id number]) [address] [place] [address] 17245 BASIC METABOLIC PANLon 06-25 Anion gap [Moles/Vol] 6 mmol/L Normal 5-15 [facility] Comment on above: Performed By: #### C SUJEY, BMP #### [facility] ([id number]) [address] [place] [address] 64363 Calcium [Mass/Vol] 9.0 mg/dL Normal 8.5-10.5 [facility] Comment on above: Performed By: #### C SUJEY, BMP #### [facility] ([id number]) [address] [place] [address] 59712 Chloride [Moles/Vol] 106 mmol/L Normal 98-109 [facility] Comment on above: Performed By: #### C SUJEY, BMP #### [facility] ([id number]) [address] [place] [address] 66597 CO2 [Moles/Vol] 25 mmol/L Normal 22-32 [facility] Comment on above: Performed By: #### C SUJEY, BMP #### [facility] ([id number]) [address] [place] [address] 81161 Creatinine [Mass/Vol] 0.54 mg/dL Normal 0.40-1.00 [facility] Comment on above: Result Comment: METH OD TRACEABLE TO IDMS STANDARD Performed By: #### C SUJEY, BMP #### [facility] ([id number]) [address] [place] [address] 16267 eGFR (CKD-EPI) NON-RACE DEPENDENT >90 Normal >59 [facility] Comment on above: Result Comment: Reported eGFR is based on the CKD-EPI 2020 equation that does not use a race coefficient. Performed By: #### C SUJEY, BMP #### [facility] ([id number]) [address] [place] [address] 69105 Glucose [Mass/Vol] 145 mg/dL High 65-99 [facility] Comment on above: Performed By: #### C SUJEY, BMP #### [facility] ([id number]) [address] [place] [address] 61899 Potassium [Moles/Vol] 3.5 mmol/L Normal 3.5-5.0 [facility] Comment on above: Performed By: #### C SUJEY, BMP #### [facility] ([id number]) [address] [place] [address] 42286 Sodium [Moles/Vol] 137 mmol/L Normal 134-146 [facility] Comment on above: Performed By: #### C SUJEY, BMP #### [facility] ([id number]) [address] [place] [address] 29906 Urea nitrogen [Mass/Vol] 9 mg/dL Normal 5-23 [facility] Comment on above: Performed By: #### C SUJEY, BMP #### [facility] ([id number]) [address] [place] [address] 91172 CBC AND AUTO DIFFon 06-25-19 25 ABSOLUTE BASOPHIL 0.1 X10E9/L Normal 0.0-0.2 [facility] Comment on above: Performed By: #### C SUJEY, BMP #### [facility] ([id number]) [address] [place] [address] 12490 ABSOLUTE NEUTROPHIL 3.1 X10E9/L Normal 1.5-6.6 [facility] Comment on above: Performed By: #### C SUJEY, BMP #### [facility] ([id number]) [address] [place] [address] 49343 Basophils/100 WBC (Bld) 0.9 % Normal [facility] Comment on above: Performed By: #### C SUJEY, BMP #### [facility] ([id number]) [address] [place] [address] 95327 Eosinophils (Bld) [#/Vol] 0.1 10*3/uL Normal 0.0-0.4 [facility] Comment on above: Performed By: #### C SUJEY, BMP #### [facility] ([id number]) [address] [place] [address] 73016 Eosinophils/100 WBC (Bld) 2.0 % Normal [facility] Comment on above: Performed By: #### C SUJEY, BMP #### [facility] ([id number]) [address] [place] [address] 72109 Erythrocyte distribution width (RBC) [Ratio] 12.7 % Normal 11.5-15.0 [facility] Comment on above: Performed By: #### C SUJEY, BMP #### [facility] ([id number]) [address] [place] [address] 63225 Hematocrit (Bld) [Volume fraction] 39.8 % Normal 35-47 [facility] Comment on above: Performed By: #### C SUJEY, BMP #### [facility] ([id number]) [address] [place] [address] 18755 Hemoglobin (Bld) [Mass/Vol] 13.6 g/dL Normal 11.7-15.5 [facility] Comment on above: Performed By: #### C SUJEY, BMP #### [facility] ([id number]) [address] [place] [address] 31503 Lymphocytes (Bld) [#/Vol] 2.8 10*3/uL Normal 1.0-3.5 [facility] Comment on above: Performed By: #### C SUJEY, BMP #### [facility] ([id number]) [address] [place] [address] 22324 Lymphocytes/100 WBC (Bld) 44.5 % Normal [facility] Comment on above: Performed By: #### C SUJEY, BMP #### [facility] ([id number]) [address] [place] [address] 32511 MCH (RBC) [Entitic mass] 30.2 pg Normal 27-34 [facility] Comment on above: Performed By: #### C SUJEY, BMP #### [facility] ([id number]) [address] [place] [address] 71757 MCHC (RBC) [Mass/Vol] 34.2 g/dL Normal 32-36 [facility] Comment on above: Performed By: #### C SUJEY, BMP #### [facility] ([id number]) [address] [place] [address] 18672 MCV (RBC) [Entitic vol] 88 fL Normal 80-100 [facility] Comment on above: Performed By: #### Davis RM, BMP #### [facility] ([id number]) [address] [place] [address] 09712 Monocytes (Bld) [#/Vol] 0.3 10*3/uL Normal 0-0.9 [facility] Comment on above: Performed By: #### Davis RM, BMP #### [facility] ([id number]) [address] [place] [address] 62765 Monocytes/100 WBC (Bld) 4.1 % Normal [facility] Comment on above: Performed By: #### Davis RM, BMP #### [facility] ([id number]) [address] [place] [address] 75966 Neutrophils/100 WBC (Bld) 48.5 % Normal [facility] Comment on above: Performed By: #### Davis RM, BMP #### [facility] ([id number]) [address] [place] [address] 80524 Platelet mean volume (Bld) [Entitic vol] 7.8 fL Normal 7-12 [facility] Comment on above: Performed By: #### Davis RM, BMP #### [facility] ([id number]) [address] [place] [address] 47329 Platelets (Bld) [#/Vol] 289 10*3/uL Normal 150-450 [facility] Comment on above: Performed By: #### C SUJEY, BMP #### [facility] ([id number]) [address] [place] [address] 18277 RBC COUNT 4.51 X10E12/L Normal 3.80-5.20 [facility] Comment on above: Performed By: #### C SUJEY, BMP #### [facility] ([id number]) [address] [place] [address] 34316 WBC (Bld) [#/Vol] 6.4 10*3/uL Normal 4.0-11.0 [facility] Comment on above: Performed By: #### C SUJEY, BMP #### [facility] ([id number]) [address] [place] [address] NECK SOFT TISSUE W CONTon 06-25-2024 [...] dose to as low as reasonably achievable. 1 Finalized by Vladimir Hall MD on 06/25/2024 11:59 PM Normal [facility] HCG ( test) Ql (U)o n 06-25-2024 Beta HCG ( test) Ql (U) Negative Normal NEG [facility] Comment on above: Performed By: #### 2 106-3 #### [facility] ([id number]) [address] [place] [address] 32452 RAPID STREP SCR NURSINGon S. pyogenes Ag EIA Ql (Throat) Positive Abnormal NEG [facility] Comment on above: Performed By: #### 6 556-5 #### [facility] ([id number]) [address] [place] [address] 02099 STREP PCR THROATon S. pyogenes DNA TRAY+probe Nom (Unsp spec) STREP PCR THROAT Negative (qualifier value) Streptococcus Group A NOT detected by nucleic acid amplification. Normal [facility] Comment on above: Performed By: #### 4 9610-9 #### [facility] ([id number]) [address], [address] [place] [address] XR ANKLE LT MIN 3 VWSon 04-10 [...] 2. Diffuse soft tissue swelling left ankle. 39C1 Finalized by Tyrese Emmanuel MD on 04/26/2024 12:06 PM Normal [facility] Basophils Auto (Bld) [#/Vol] on 04-18-2024 Basophils (Bld) [#/Vol] Automated basoph il count 0.0-0.1 [facility] Basophils/100 WBC Auto (Bld) on 04-18-2024 Basophils/100 WBC (Bld) Automated basoph il % 0.2-2.0 [facility] Eosinophils/100 WBC Auto (Bl d)on 04-18-2024 Eosinophils/100 WBC (Bld) Automated eosinophil % 0.9-7.0 [facility] Erythrocyte distribution wid th Auto (RBC) [Ratio]on 04-18-2024 Erythrocyte distribution width (RBC) [Ratio] Erythrocyte distribution width [Ratio] by Automated count 11.0-15.0 [facility] Hematocrit Auto (Bld) [Volum e fraction]on 04-18-2024 Hematocrit (Bld) [Volume fraction] Hematocrit [Volume Fraction] of Blood by Automated count 36.0-48.0 [facility] Hemoglobin [Mass/volume] in Bloodon 04-18-2024 Hemoglobin (Bld) [Mass/Vol] Hemoglobin [Mass/volume] in Blood 12.0-16.0 [facility] Laboratory - Chemistry and C hemistry - challengeon 04-18-2024 Bilirubin Ql (U) Negative NEGATIVE [facility] Glucose (U) [Mass/Vol] Negative NEGATIVE [facility] Ketones Ql (U) Negative NEGATIVE [facility] pH (U) 6.5 [pH] 5.0-9.0 [facility] Specific gravity (U) [Rel density] 1.010 1.005-1.025 [facility] Urobilinogen Qn (U) 0.2 {Melissa'U}/dL 0.2-1.0 [facility] Laboratory - Hematology and Cell countson 04-18-2024 Immature granulocytes/100 WBC (Bld) 0.3 % 0.0-0.5 [facility] - Specimen inform ationon 04-18-2024 Appearance (U) CLEAR CLEAR [facility] Color (U) LT. YELLOW YELLOW [facility] Laboratory - Urinalysison Leukocyte esterase Test strip Ql (U) Negative NEGATIVE [facility] Mucus Ql (Urine sed) NONE SEEN NONE SEEN [facility] Nitrite Ql (U) Negative NEGATIVE [facility] Protein Ql (U) Negative NEG/TRACE [facility] Leukocytes [#/volume] correc kenneth for nucleated erythrocytes in Blood by Automated counon 04-18-2024 WBC corrected for nucl RBC Auto (Bld) [#/Vol] Leukocytes [#/volume] corrected for nucleated erythrocytes in Blood by Automated coun 4.0-11.0 [facility] Lymphocytes Auto (Bld) [#/Vo l]on 04-18-2024 Lymphocytes (Bld) [#/Vol] Lymphocytes [#/volume] in Blood by Automated count 1.2-3.8 [facility] Lymphocytes/100 WBC Auto (Bl d)on 04-18-2024 Lymphocytes/100 WBC (Bld) Lymphocytes/100 leukocytes in Blood by Automated count 20.5-60.0 [facility] Auto (RBC) [Entitic mass ]on 04-18-2024 [facility] (RBC) [Entitic mass] MCH [Entitic mass] by Automated count 26.7-34.0 [facility] MCHC Auto (RBC) [Mass/Vol]on 04-18-2024 MCHC (RBC) [Mass/Vol] MCHC [Mass/volume] by Automated count 29.9-35.2 [facility] MCV Auto (RBC) [Entitic vol] on 04-18-2024 MCV (RBC) [Entitic vol] MCV [Entitic volume] by Automated count 81.0-99.0 [facility] Monocytes Auto (Bld) [#/Vol] on 04-18-2024 Monocytes (Bld) [#/Vol] Automated blood monocyte count 0.3-0.8 [facility] Monocytes/100 WBC Auto (Bld) on 04-18-2024 Monocytes/100 WBC (Bld) Automated monocy te % 1.7-12.0 [facility] Neutrophils Auto (Bld) [#/Vo l]on 04-18-2024 Neutrophils (Bld) [#/Vol] Neutrophils [#/volume] in Blood by Automated count 1.4-6.5 [facility] Neutrophils/100 WBC Auto (Bl d)on 04-18-2024 Neutrophils/100 WBC (Bld) Automated neutrophil % 43.0-75.0 [facility] No Panel Informationon 04-18 Eosinophils # (Auto) 0.3 10 3/uL 0.0-0.7 [facility] Immature Granulocyte # (Auto) 0.02 10 3/uL 0.00-0.03 [facility] Urine Bacteria TRACE #/HPF Abnormal NONE SEEN [facility] Urine Occult Blood MODERATE Abnormal NEGATIVE [facility] Urine Other Casts NONE SEEN #/LPF NONE SEEN [facility] Urine Other Crystals None Seen #/HPF None Seen [facility] Urine RBC NONE SEEN #/HPF 0-2 [facility] Urine Squamous Epithelial Cells FEW #/LPF Abnormal NONE/RARE [facility] Urine WBC NONE SEEN #/HPF NONE SEEN [facility] Platelet mean volume Auto (B ld) [Entitic vol]on 04-18-2024 Platelet mean volume (Bld) [Entitic vol] Platelet mean volume [Entitic volume] in Blood by Automated count Low 9.5-13.5 [facility] Platelets Auto (Bld) [#/Vol] on 04-18-2024 Platelets (Bld) [#/Vol] Platelets [#/volume] in Blood by Automated count 150-450 [facility] RBC Auto (Bld) [#/Vol]on RBC (Bld) [#/Vol] Erythrocytes [#/volume] in Blood by Automated count 4.20-5.40 [facility] Influenza virus B Ag [Presen ce] in Upper respiratory specimen by Rapid immunoassayon 04-14-2024 FLUBV Ag IA.rapid Ql (Nph) Influenza virus B Ag [Presence] in Upper respiratory specimen by Rapid immunoassay [facility] Laboratory - Chemistry and C hemistry - challengeon 04-14-2024 Bilirubin Ql (U) Negative [facility] Glucose (U) [Mass/Vol] Negative [facility] Ketones Ql (U) Negative [facility] pH (U) 5.0 [pH] [facility] Specific gravity (U) [Rel density] 1.015 [facility] Urobilinogen (U) [Mass/Vol] 0.2 mg/dL [facility] Laboratory - Specimen inform ationon 04-14-2024 Appearance (U) cloudy [facility] Color (U) darkyellow [facility] Laboratory - Urinalysison Leukocyte esterase Test strip Ql (U) Negative [facility] Nitrite Ql (U) Negative [facility] Protein Ql (U) + [facility] No Panel Informationon 04-14 Influenza Type A (Rapid) Negative [facility] POC SARS CoV-2 Antigen Negative [facility] Urine Occult Blood 5-10 [facility] No Panel InformationOrdered By: Krishna Hernandez on 04-14-2024 Quick Strep (POC) [facility] PAP ACOG PANEL 2: 21 to 29on 08-28-2022 . . Normal [facility] Comment on above: Performed By: #### [id number] #### [facility] [address] [place] [address] Dr. Medina Menchaca Age Gdln ACOG Testing 21-29 [facility] Comment on above: Performed By: #### [id number] #### [facility] [address] [address] [address] Medina Menchaca DIAGNOSIS: Comment [facility] Comment on above: Result Comment: NEGA TIVE FOR INTRAEPITHELIAL LESION OR MALIGNANCY. Performed By: #### [id number] #### [facility] [address] [address] [address] Medina Menchaca Methodology: Comment [facility] Comment on above: Result Comment: This liquid based ThinPrep(R) pap test was screened with the use of an image guided system. Performed By: #### [id number] #### [facility] [address] [place] [address] Dr. Medina Menchaca Note: Comment [facility] Comment on above: Result Comment: The Pap smear is a screening test designed to aid in the detection of premalignant and malignant conditions of the uterine cervix. It is not a diagnostic procedure and should not be used as the sole means of detecting cervical cancer. Both false-positive and false-negative reports do occur. . Performed By: #### [id number] #### [facility] [address] [place] [address] Dr. Medina Menchaca Performed by: Comment Normal [facility] Comment on above: Result Comment: [employer] (ASCP) Performed By: #### [id number] #### [facility] [address] [place] [address] Dr. Medina Menchaca Reflex Criteria: Comment [facility] Comment on above: Result Comment: The HPV DNA reflex criteria were not met with this specimen result therefore, no HPV testing was performed. . Performed By: #### [id number] #### [facility] [address] [place] [address] Dr. Medina Menchaca Specimen adequacy: Comment Normal [facility] Comment on above: Result Comment: Sati sfactory for evaluation. No endocervical component is identified. Performed By: #### [id number] #### [facility] [address] [place] [address] Dr. Medina Menchaca CULTURE URINEon 03-06-2022 CULTURE URINE Isolate 1 Escherichia coli >100,000 cfu/mL of ORGANISM 1 Escherichia coli ANTIBIOTIC M.I.C RX STATUS Ampicillin >=32 R F Ampicillin/Sulbacta m 16 I F Piperacillin/Tazoba ctam <=4 S F Cefazolin <=4 S F Ceftazidime <=1 S F Ceftriaxone <=1 S F Ertapenem <=0.5 S F Imipenem <=0.25 S F Amikacin <=2 S F Gentamicin <=1 S F Tobramycin <=1 S F Ciprofloxacin <=0.25 S F Levofloxacin <=0.12 S F Nitrofurantoin <=16 S F Trimethoprim/Sulfam ethoxazole <=20 S F [facility] Comment on above: Performed By: #### U RCX #### [facility] [address] [place] [address] Dr. Medina Menchaca CBC AUTO DIFFon 03-03-2022 BASO # 0.0 103/ul Normal 0.0-0.1 [facility] Comment on above: Performed By: #### C BC #### [facility] [address] [place] [address] Dr. Medina Menchaca Basophils/100 WBC (Bld) 0.2 % Normal 0.2-2.0 [facility] Comment on above: Performed By: #### C BC #### [facility] [address] [place] [address] Dr. Medina Menchaca EO # 0.1 103/ul Normal 0.0-0.7 [facility] Comment on above: Performed By: #### C BC #### [facility] [address] [place] [address] Dr. Medina Menchaca Eosinophils/100 WBC (Bld) 1.2 % Normal 0.9-7.0 [facility] Comment on above: Performed By: #### C BC #### [facility] [address] [place] [address] Dr. Medina Menchaca Erythrocyte distribution width (RBC) [Ratio] 12.5 % Normal 11.0-15.0 [facility] Comment on above: Performed By: #### C BC #### [facility] [address] [place] [address] Dr. Medina Menchaca Hematocrit (Bld) [Volume fraction] 41.5 % Normal 36.0-48.0 [facility] Comment on above: Performed By: #### C BC #### [facility] [address] [place] [address] Dr. Medina Menchaca Hemoglobin (Bld) [Mass/Vol] 13.8 g/dL Normal 12.0-16.0 [facility] Comment on above: Performed By: #### C BC #### [facility] [address] [place] [address] Dr. Medina Menchaca IG # 0.03 10e3/ul Normal 0.00-0.03 [facility] Comment on above: Performed By: #### C BC #### [facility] [address] [place] [address] Dr. Medina Menchaca IG % 0.3 % Normal 0.0-0.5 [facility] Comment on above: Performed By: #### C BC #### [facility] [address] [place] [address] Dr. Medina Menchaca LYMPH # 2.2 103/ul Normal 1.2-3.8 [facility] Comment on above: Performed By: #### C BC #### [facility] [address] [place] [address] Dr. Medina Menchaca Lymphocytes/100 WBC (Bld) 24.4 % Normal 20.5-60.0 [facility] Comment on above: Performed By: #### C BC #### [facility] [address] [place] [address] Dr. Medina Menchaca MANUAL DIFF REQ NO Normal [facility] Comment on above: Performed By: #### C BC #### [facility] [address] [place] [address] Dr. Medina Menchaca MCH (RBC) [Entitic mass] 30.5 pg Normal 26.7-34.0 [facility] Comment on above: Performed By: #### C BC #### [facility] [address] [place] [address] Dr. Medina Menchaca MCHC (RBC) [Mass/Vol] 33.3 g/dL Normal 29.9-35.2 [facility] Comment on above: Performed By: #### C BC #### [facility] [address] [place] [address] Dr. Medina Menchaca MCV (RBC) [Entitic vol] 91.6 fL Normal 81.0-99.0 [facility] Comment on above: Performed By: #### C BC #### [facility] [address] [place] [address] Dr. Medina Menchaca MONO # 0.4 103/ul Normal 0.3-0.8 [facility] Comment on above: Performed By: #### C BC #### [facility] [address] [place] [address] Dr. Medina Menchaca Monocytes/100 WBC (Bld) 4.4 % Normal 1.7-12.0 [facility] Comment on above: Performed By: #### C BC #### [facility] [address] [place] [address] Dr. Medina Menchaca NEUT # 6.2 103/ul Normal 1.4-6.5 [facility] Comment on above: Performed By: #### C BC #### [facility] [address] [place] [address] Dr. Medina Menchaca Neutrophils/100 WBC (Bld) 69.5 % Normal 43.0-75.0 [facility] Comment on above: Performed By: #### C BC #### [facility] [address] [place] [address] Dr. Medina Menchaca Platelet mean volume (Bld) [Entitic vol] 10.6 fL Normal 9.5-13.5 [facility] Comment on above: Performed By: #### C BC #### [facility] [address] [place] [address] Dr. Medina Menchaca PLT 197 103/ul Normal 150-450 [facility] Comment on above: Performed By: #### C BC #### [facility] [address] [place] [address] Dr. Medina Menchaca RBC 4.53 106/ul Normal 4.20-5.40 [facility] Comment on above: Performed By: #### C BC #### [facility] [address] [place] [address] Dr. Medina Menchaca WBC 8.9 103/ul Normal 4.0-11.0 [facility] Comment on above: Performed By: #### C BC #### [facility] [address] [place] [address] ABD/PELV W CONon [...] ROGELIO FUCHS Date: 2022-03-03 20:58 Normal [facility] ER URINE PROFILEon 2 Bilirubin Ql (U) Negative Normal NEGATIVE [facility] Comment on above: Performed By: #### U MICRO, PREGU, ERUR #### [facility] [address] [place] [address] Dr. Medina Menchaca Clarity (U) CLEAR Normal CLEAR [facility] Comment on above: Performed By: #### U MICRO, PREGU, ERUR #### [facility] [address] [address] [address] Medina Menchaca Color (U) LT. YELLOW Normal YELLOW [facility] Comment on above: Performed By: #### U MICRO, PREGU, ERUR #### [facility] [address] [address] [address] Medina DOMINIQUE A micrscopic examination will be performed if indicated. Normal [facility] Comment on above: Performed By: #### U MICRO, PREGU, ERUR #### [facility] [address] [address] [address] Medina Menchaca Glucose Ql (U) Negative Normal NEGATIVE [facility] Comment on above: Performed By: #### U MICRO, PREGU, ERUR #### [facility] [address] [address] [address] Medina Menchaca Hemoglobin Ql (U) TRACE-INTACT Abnormal NEGATIVE [facility] Comment on above: Performed By: #### U MICRO, PREGU, ERUR #### [facility] [address] [place] [address] Dr. Medina Menchaca Ketones Ql (U) Negative Normal NEGATIVE [facility] Comment on above: Performed By: #### U MICRO, PREGU, ERUR #### [facility] [address] [place] [address] Dr. Medina Menchaca LEUKOCYTES TRACE Abnormal NEGATIVE [facility] Comment on above: Performed By: #### U MICRO, PREGU, ERUR #### [facility] [address] [place] [address] Dr. Medina Menchaca Nitrite Ql (U) Negative Normal NEGATIVE [facility] Comment on above: Performed By: #### U MICRO, PREGU, ERUR #### [facility] [address] [place] [address] Dr. Medina Menchaca pH (U) 6.0 [pH] Normal 5-9 [facility] Comment on above: Performed By: #### U MICRO, PREGU, ERUR #### [facility] [address] [place] [address] Dr. Medina Menchaca SPEC GRAVITY 1.020 Normal 1.005-<=1.025 [facility] Comment on above: Performed By: #### U MICRO, PREGU, ERUR #### [facility] [address] [place] [address] Dr. Medina Menchaca UA PROTEIN Negative Normal NEGATIVE/ TRACE [facility] Comment on above: Performed By: #### U MICRO, PREGU, ERUR #### [facility] [address] [place] [address] Dr. Medina Menchaca UR MICRO IND INDICATED Normal [facility] Comment on above: Performed By: #### U MICRO, PREGU, ERUR #### [facility] [address] [place] [address] Dr. Medina Menchaca Urobilinogen Qn (U) 1.0 {Melissa'U}/dL Normal 0.2 - 1. 0 [facility] Comment on above: Performed By: #### U MICRO, PREGU, ERUR #### [facility] [address] [place] [address] Dr. Mednia Menchaca LIPASEon 03-03-2022 Lipase [Catalytic activity/Vol] 116.0 U/L Normal 73.0-393.0 [facility] Comment on above: Performed By: #### L IPA, CMP #### [facility] [address] [place] [address] Dr. Medina Menchaca URon 03-03-2022 , QUAL Negative Normal NEGATIVE [facility] Comment on above: Performed By: #### U MICRO, PREGU, ERUR #### [facility] [address] [place] [address] Dr. Medina Menchaca PROF 14(COMP METB)on 022 Albumin [Mass/Vol] 3.7 g/dL Normal 3.4-5.0 [facility] Comment on above: Performed By: #### L IPA, CMP #### [facility] [address] [place] [address] Dr. Medina Menchaca Albumin/Globulin [Mass ratio] 1.1 {ratio} Normal [facility] Comment on above: Performed By: #### L IPA, CMP #### [facility] [address] [place] [address] Dr. Medina Menchaca ALP [Catalytic activity/Vol] 117 U/L Critically high 46-116 [facility] Comment on above: Performed By: #### L IPA, CMP #### [facility] [address] [place] [address] Dr. Medina Menchaca ALT [Catalytic activity/Vol] 68 U/L Critically high 14-59 [facility] Comment on above: Performed By: #### L IPA, CMP #### [facility] [address] [place] [address] Dr. Medina Menchaca Anion gap [Moles/Vol] 9.0 mmol/L Normal [facility] Comment on above: Performed By: #### L IPA, CMP #### [facility] [address] [address] [address] Medina Menchaca AST [Catalytic activity/Vol] 31 U/L Normal 15-37 [facility] Comment on above: Performed By: #### L IPA, CMP #### [facility] [address] [address] [address] Medina Menchaca Bilirubin [Mass/Vol] 0.6 mg/dL Normal 0.2-1.0 [facility] Comment on above: Performed By: #### L IPA, CMP #### [facility] [address] [place] [address] Dr. Medina Menchaca Calcium [Mass/Vol] 8.7 mg/dL Normal 8.5-10.1 [facility] Comment on above: Performed By: #### L IPA, CMP #### [facility] [address] [place] [address] Dr. Medina Menchaca Chloride [Moles/Vol] 103 mmol/L Normal 98-107 [facility] Comment on above: Performed By: #### L IPA, CMP #### [facility] [address] [place] [address] Dr. Medina Menchaca CO2 [Moles/Vol] 27.6 mmol/L Normal 21.0-32.0 [facility] Comment on above: Performed By: #### L IPA, CMP #### [facility] [address] [place] [address] Dr. Medina Menchaca Creatinine [Mass/Vol] 0.72 mg/dL Normal 0.55-1.02 [facility] Comment on above: Performed By: #### L IPA, CMP #### [facility] [address] [place] [address] Dr. Medina Menchaca EGFR-AF FINNISH >60 Normal >=60 [facility] Comment on above: Performed By: #### L IPA, CMP #### [facility] [address] [place] [address] Dr. Medina Menchaca EGFR-NON AF FINNISH >60 Normal >=60 [facility] Comment on above: Performed By: #### L IPA, CMP #### [facility] [address] [address] [address] Medina Menchaca Globulin (S) [Mass/Vol] 3.4 g/dL Normal [facility] Comment on above: Performed By: #### L IPA, CMP #### [facility] [address] [address] [address] Medina Menchaca Glucose [Mass/Vol] 87 mg/dL Normal 74-106 [facility] Comment on above: Performed By: #### L IPA, CMP #### [facility] [address] [address] [address] Medina Menchaca Potassium [Moles/Vol] 3.6 mmol/L Normal 3.5-5.1 [facility] Comment on above: Performed By: #### L IPA, CMP #### [facility] [address] [place] [address] Dr. Medina Menchaca Protein [Mass/Vol] 7.1 g/dL Normal 6.4-8.2 [facility] Comment on above: Performed By: #### L IPA, CMP #### [facility] [address] [address] [address] Medina Menchaca Sodium [Moles/Vol] 136 mmol/L Normal 136-145 [facility] Comment on above: Performed By: #### L IPA, CMP #### [facility] [address] [address] [address] Medina Menchaca Urea nitrogen [Mass/Vol] 8.0 mg/dL Normal 7.0-18.0 [facility] Comment on above: Performed By: #### L IPA, CMP #### [facility] [address] [address] [address] Medina Menchaca Urea nitrogen/Creatinine [Mass ratio] 11.1 mg/mg Normal [facility] Comment on above: Performed By: #### L IPA, CMP #### [facility] [address] [address] [address] Medina Menchaca URINE MICROSCOPIC ONLYon BACTERIA TRACE Abnormal NONE SEEN [facility] Comment on above: Performed By: #### U MICRO, PREGU, ERUR #### [facility] [address] [address] [address] Medina Menchaca Bacteria identified Cx Nom (U) INDICATED Normal [facility] Comment on above: Performed By: #### U MICRO, PREGU, ERUR #### [facility] [address] [place] [address] Dr. Medina Menchaca CAST NONE SEEN Normal NONE SEEN [facility] Comment on above: Performed By: #### U MICRO, PREGU, ERUR #### [facility] [address] [place] [address] Dr. Medina Menchaca Crystals LM Nom (Urine sed) NONE SEEN Normal NONE SEEN [facility] Comment on above: Performed By: #### U MICRO, PREGU, ERUR #### [facility] [address] [place] [address] Dr. Medina Menchaca Epithelial cells LM Ql (Urine sed) RARE Normal NONE SEEN /RARE [facility] Comment on above: Performed By: #### U MICRO, PREGU, ERUR #### [facility] [address] [place] [address] Dr. Medina Menchaca MUCOUS NONE SEEN Normal NONE SEEN [facility] Comment on above: Performed By: #### U MICRO, PREGU, ERUR #### [facility] [address] [place] [address] Dr. Medina Menchaca RBC 0-2 Normal 0-2 [facility] Comment on above: Performed By: #### U MICRO, PREGU, ERUR #### [facility] [address] [place] [address] Dr. Medina Menchaca WBC 2-5 Abnormal NONE SEEN [facility] Comment on above: Performed By: #### U MICRO, PREGU, ERUR #### [facility] [address] [place] [address] Dr. Medina Menchaca [facility]08 SARS-CoV-2 (COVID-19) RNA TRAY+probe Ql (Unsp spec) Not detected Normal NOT DETECTED [facility] Comment on above: Result Comment: This test is not yet approved or cleared by the [place] FDA. When there are no FDA-approved or cleared tests available, and other criteria are met, FDA can make tests available under an emergency access mechanism called an Emergency Use Authorization (EUA). The EUA for this test is supported by the [employer] of Health and Human Service's (HHS's) declaration [...] consistent with SARS-CoV-2. Performed By: #### C [facility] #### [facility] [address] [place] [address] Dr. Medina Menchaca Vital Signs Date Time Vital Sign Value Performing Clinician Facility 01-10-2025 11:13-0400 Body weight 103.93 kg Jeremy Vuo DO Work Phone: [facility] 12-02-2024 14:31-0400 Body height 162.56 cm Krishna Ball DO Work Phone: [facility] 12-02-2024 14:31-0400 Body mass index (BMI) [Ratio] 39.5 kg/m2 Krishna Ball DO Work Phone: [facility] 12-02-2024 14:31-0400 Body weight 104.43 kg Krishna Ball DO Work Phone: [facility] 12-02-2024 14:31-0400 Diastolic blood pressure 84 mm[Hg] Krishna Ball DO Work Phone: [facility] 12-02-2024 14:31-0400 Heart rate 88 /min Krishna Ball DO Work Phone: [facility] 12-02-2024 14:31-0400 Respiratory rate 12 /min Krishna Ball DO Work Phone: [facility] 12-02-2024 14:31-0400 Systolic blood pressure 127 mm[Hg] Krishna Ball DO Work Phone: [facility] 07-26-2024 13:58-0400 Body weight 101.21 kg Jeremy Aysha DO Work Phone: [facility] 07-26-2024 13:58-0400 Diastolic blood pressure 70 mm[Hg] Jeremy Aysha DO Work Phone: [facility] 07-26-2024 13:58-0400 Systolic blood pressure 116 mm[Hg] Jeremy Aysha DO Work Phone: [facility] 07-08-2024 14:39-0500 Body height 162.56 cm [facility] 07-08-2024 14:39-0500 Body mass index (BMI) [Ratio] 38.6 kg/m2 [facility] 07-08-2024 14:39-0500 Body weight 102.17 kg [facility] 07-08-2024 14:39-0500 Diastolic blood pressure 100 mm[Hg] [facility] 07-08-2024 14:39-0500 Heart rate 87 /min [facility] 07-08-2024 14:39-0500 Respiratory rate 12 /min [facility] 07-08-2024 14:39-0500 SaO2% (BldA) [Mass fraction] 98 % [facility] 07-08-2024 14:39-0500 Systolic blood pressure 136 mm[Hg] [facility] 07-16-2022 14:00-0500 Body height 167.64 cm Krishna Ball Other [facility] Other 07-16-2022 14:00-0500 Body mass index (BMI) [Ratio] 36.54 kg/m2 Krishna Ball Other [facility] Other 07-16-2022 14:00-0500 Body weight 102.7 kg Krishna Ball Other [facility] Other 07-16-2022 14:00-0500 Diastolic blood pressure 86 mm[Hg] Krishna Hernandez Other [facility] Other 07-16-2022 14:00-0500 Respiratory rate 12 /min Krishna Hernandez Other [facility] Other 07-16-2022 14:00-0500 Systolic blood pressure 122 mm[Hg] Krishna Hernandez Other [facility] Other Encounters Encounter Date Encounter Type Care Provider Facility Start: 02-01-2025 End: 02-01-2025 ambulatory Jluieth Lassiter Facility:[facility] [place] Start: 02-01-2025 End: 02-01-2025 Patient encounter procedure Julieth Lassiter [facility] Start: 01-23-2025 End: 01-23-2025 ambulatory JEREMY AYSHA Not Available Start: 01-10-2025 End: 01-10-2025 Bamboo flowsheet Jeremy Aysha DO Work Phone: [facility] Start: 01-10-2025 End: 01-10-2025 Bamboo flowsheet Jeremy Aysha DO Work Phone: [facility] Start: 01-10-2025 End: 01-10-2025 Office outpatient visit 15 minutes Jeremy Aysha DO Work Phone: [facility] Comment on above: Abnormal uterine ble eding (AUB); Abdominal cramping Start: 01-10-2025 End: 01-10-2025 ambulatory JEREMY AYSHA Not Available Start: 01-04-2025 ambulatory Julieth Lassiter Facility:[facility] Start: 01-04-2025 End: 01-04-2025 ambulatory Michaelle Morales Facility:[facility] Start: 01-04-2025 End: 01-04-2025 Patient encounter procedure Michaelle Morales [facility] Start: 12-28-2024 End: 12-28-2024 Emergency department patient visit KRISHNA HERNANDEZ [facility] Start: 12-27-2024 End: 12-27-2024 ambulatory Krishna Hernandez DO Work Phone: [facility] Work Phone: Start: 12-27-2024 End: 12-27-2024 Patient encounter procedure Krishna Hernandez DO -[facility] Work Phone: Start: 12-21-2024 Non-patient / Non-visit Krishna Hebert elisabeth DO -[facility] Work Phone: Start: 12-07-2024 End: 12-07-2024 ambulatory Krishna Hernandez Facility:[facility] Start: 12-07-2024 Non-patient / Non-visit Krishna Hebert elisabeth DO -[facility] [facility] Work Phone: Start: 12-02-2024 End: 12-02-2024 ambulatory Krishna Hernandez DO Work Phone: [facility] Work Phone: Start: 12-02-2024 End: 12-02-2024 Patient encounter procedure Krishna Hernandez DO -[facility] Work Phone: Start: 08-12-2024 End: 08-12-2024 Clinisync Result Encounter Jeremy Aysha DO Work Phone: [facility] Unsolicited Start: 08-12-2024 End: 08-12-2024 Clinisync Result Encounter Jeremy Aysha DO Work Phone: [facility] Unsolicited Start: 08-08-2024 End: 08-08-2024 ambulatory Krishna Hernandez [facility] Work Phone: Start: 08-08-2024 End: 08-08-2024 Departed Referred Krishna Hernandez DO Work Phone: [facility] Start: 08-08-2024 Non-patient / Non-visit Eloisa Hernandez DO Work Phone: [facility] Work Phone: Start: 07-26-2024 End: 07-26-2024 ambulatory JEREMY AYSHA Not Available Start: 07-26-2024 End: 07-26-2024 Office outpatient visit 15 minutes Jeremy Aysha DO Work Phone: [facility] Comment on above: Encounter for IUD re moval; Encounter for IUD insertion; Pelvic cramping; Presence of intrauterine contraceptive device (IUD) Start: 07-26-2024 End: 07-26-2024 ambulatory JEREMY AYSHA Not Available Start: 07-08-2024 End: 07-08-2024 ambulatory [facility] Work Phone: Start: 07-08-2024 End: 07-08-2024 Patient encounter procedure [facility] Work Phone: Start: 06-30-2024 End: 06-30-2024 Emergency department patient visit KRISHNA HERNANDEZ [facility] Start: 06-25-2024 End: 06-28-2024 ambulatory KRISHNA Hudson [facility] Start: 06-23-2024 End: 06-23-2024 ambulatory [facility] Work Phone: Start: 06-23-2024 End: 06-23-2024 Patient encounter procedure [facility] Work Phone: Start: 04-28-2024 Non-patient / Non-visit [facility] Work Phone: Start: 04-26-2024 End: 04-26-2024 Emergency department patient visit KRISHNA Hudson [facility] Start: 04-18-2024 Non-patient / Non-visit [facility] Work Phone: Start: 04-14-2024 End: 04-14-2024 Patient encounter procedure [facility] Work Phone: Start: 08-31-2023 End: 08-31-2023 ambulatory MD Susan Aparicio Work Phone: [facility] Work Phone: Start: 08-31-2023 End: 08-31-2023 Departed Referred MD Susan Aparicio Work Phone: [facility] Start: 01-29-2023 End: 01-29-2023 ambulatory Krishna Hernandez Other [facility] Other Start: 01-29-2023 Office outpatient vi sit [address] [facility] Start: 01-13-2023 End: 01-13-2023 ambulatory Susan Aparicio Other [facility] Other Start: 01-13-2023 Telephone encounter Susan Aparicio [facility] Start: 12-30-2022 End: 12-30-2022 ambulatory Krishna Hernandez Other [facility] Other Start: 12-30-2022 Telephone encounter Krishna Hernandez [facility] Start: 08-20-2022 End: 08-20-[address] DAIRO HEAD . Facility: Start: 08-19-2022 End: 08-19-2022 ambulatory Krishna Hernandez Other [facility] Other Start: 08-19-2022 Telephone encounter Krishna [facility] Start: 07-28-2022 ([facility]) [facility] Start: 07-28-2022 End: 07-28-2022 ambulatory Krishna Hernandez Other [facility] Other Start: 07-16-2022 End: 07-16-2022 ambulatory Krishna Hernandez Other [facility] Other Start: 07-16-2022 Office outpatient vi sit 15 minutes Krishna SANCHEZ [facility] Start: 03-03-2022 End: 03-04-[address] KRISHNA HERNANDEZ Facility:[facility] Start: 09-25-2021 End: 09-25-[address] SUSAN APARICIO Facility:[facility] Start: 09-04-2021 Gynecological examination abnormal Krishna Hernandez Other [facility] Other Start: 04-09-2017 End: 04-10-2017 Ambulatory DEFAULT PHYSICIAN Facility:[facility] Procedures Date Procedure Procedure Detail Performing Clinician Start: 08-12-2024 ALL CBC WITH AUTO DIFF Jeremy Olmstead DO Work Phone: Start: 07-26-2024 IUD REMOVAL Jeremy riddle DO Work Phone: Start: 04-14-2024 Quick Strep (POC) screening Krishna Hernandez Other screening Krishna Hernandez Other Contraception care education Krishna Hernandez Other Diabetes mellitus screening Krishna Hernandez Other Insertion of intraut erine contraceptive device Krishna Hernandez Other End: 05-06-2016 visit Krishna Hernandez Other Plan of Treatment Date Care Activity Detail Author Start: 02-20-2025 End: 02-20-2025 Patient encounter procedure 02/20/2025 2:40 PM EDT Procedure Visit [facility] CAB[address] [address] [place] [id number] Jeremy Olmstead DO [address] [place] [address] [facility] Start: 01-23-2025 End: 01-23-2025 Professional / ancillary services management 01/23/2025 1:00 PM EDT Ancillary Procedure [facility] [address] [facility] [id number] [facility] Start: 01-10-2025 End: 07-10-2025 US Pelvis US Pelvis w/ TV Imaging Routine Abnormal uterine bleeding (AUB) Abdominal cramping Expected: 01/10/2025, Expires: 07/10/2025 [facility] Work Phone: Comment on above: Expected: 01/10/2025 , Expires: 07/10/2025 Start: 01-10-2025 End: 01-10-2025 Patient encounter procedure 01/10/2025 10:50 AM EDT Office Visit MAHESH CABELLO [address] [facility] [id number] Jeremy Olmstead DO [address] [place] [address] Arrived MAHESH CABELLO Comment on above: Arrived Start: 12-07-2024 Urine culture [facility] Start: 08-08-2024 Bacteria identified in Urine by Culture Urine Culture [facility] Start: 08-08-2024 Urine culture [facility] Start: 07-26-2024 End: 07-26-2025 XR Abdomen Single view XR abdomen 1 view Imaging Routine Pelvic cramping Presence of intrauterine contraceptive device (IUD) Expected: 07/26/2024, Expires: 07/26/2025 [facility] Work Phone: Comment on above: Expected: 07/26/2024 , Expires: 07/26/2025 Comprehensive metabo lic 2000 panel - Serum or Plasma [facility] Urine culture [facility] Payers Date Payer Category Payer Private Health Insurance [id number] 2024 Self-pay [id number] 2024 Medicaid [id number] 2024 Medicaid [id number] 2023 [facility] BCBS [id number] 2023 Unknown [id number] 1995 Unknown [id number] 2.16.840.1.526465.3.579.2. 593 1995 Unknown [id number] 2.16.840.1.291900.3.579.2. 593 1995 Unknown [id number] 2.16.840.1.139003.3.579.2. 593 1995 Unknown [id number] 2.16.840.1.356781.3.579.2. 1286 1995 Unknown [id number] 2.16.840.1.856972.3.579.2. 1286 1995 Unknown [id number] 2.16.840.1.498765.3.579.2. 1286 1995 Unknown [id number] 2.16.840.1.050406.3.579.2. 1286 1995 Unknown [id number] 2.16.840.1.916089.3.579.2. 1259 1995 Unknown [id number] 2.16.840.1.867270.3.579.2. 1259 1995 Unknown [id number] 2.16.840.1.243078.3.579.2. 1259 1995 Unknown [id number] 2.16.840.1.887969.3.579.2. 9 1995 Unknown [id number] 2.16.840.1.549835.3.579.2. 727 1995 Unknown [id number] 2.16.840.1.553524.3.579.2. 727 1995 Unknown [id number] 2.16.840.1.945683.3.579.2. 727 1959 Unknown [id number] 2.16.840.1.673727.19 1959 Unknown [id number] Unknown Unknown [facility] [id number] Unknown [id number] 2.16.840.1.700791.3.579.2. 531 Unknown [id number] 2.16.840.1.149016.3.579.2. 531 Social History Date Type Detail Facility Sex Assigned At [facility] Start: 01-29-2023 End: 01-29-2023 Tobacco smoking status NHIS Smoker (finding) [facility] Start: 1995 Sex Assigned At Female [facility] Start: 06-23-2024 End: 08-09-2024 Sex Female (finding) [facility] Tobacco smoking stat us NHIS Tobacco smoking consumption unknown [facility] Start: 08-28-2023 Gender identity Identifies as female gender (finding) [facility] Start: 08-28-2023 Sexual orientation Heterosexual (finding) [facility] Start: 01-29-2023 Tobacco smoking status NHIS Smokes tobacco daily (finding) [facility] Start: 01-04-2025 Tobacco smoking status Heavy tobacco smoker (finding) [facility] Sexual Orientation [facility] Clinical Notes 07-16-2022 to 01-10-2025 Gladis Almanza, UTILIZATION MANAGEMENT UM NURSE - 01/10/2025 10:50 AM EDT Note Date & Type Note Facility 01-10-2025 History of Presen t illness Narrative Reason for Appointment: Patient ID: Mayra Camarena is a 29 y.o. female who presents for Vaginal Bleeding and Abdominal Cramping Patient presents today for Consult appointment. MEDICATIONS Current Outpatient Medications Medication Instructions citalopram (CELEXA) 40 mg, Daily ibuprofen 800 mg, Every 8 hours PRN Mirena (52 MG) 52 mg, Intrauterine, Continuous, IUD was placed during recent surgery on 08/12/2024 [facility]: 77303-870-06 Lot# [id number] Expiration: 09/2026 ALLERGIES Allergies Allergen Reactions Doxycycline GI intolerance PROBLEMS Active Ambulatory Problems Diagnosis Date Noted No Active Ambulatory Problems Resolved Ambulatory Problems Diagnosis Date Noted No Resolved Ambulatory Problems No Additional Past Medical History HISTORY PAST MEDICAL HISTORY SOCIAL HISTORY No past medical history on file. Social History Tobacco Use Smoking status: Not on file Smokeless tobacco: Not on file Substance Use Topics Alcohol use: Not on file Drug use: Not on file FAMILY HISTORY No family history on file. SURGICAL HISTORY Past Surgical History: Procedure Laterality [...] Constitutional: Appearance: Normal appearance. She is well-developed. Cardiovascular: Rate and Rhythm: Normal rate and [...] nursing note reviewed. Exam conducted with a pulp mill team leader present. Vitals: There is no height or weight on file to calculate BMI. BP: No LMP recorded. (Menstrual status: No Periods). ASSESSMENT & PLAN ICD-10-CM 1. Abnormal uterine bleeding (AUB) N93.9 2. Abdominal cramping R10.9 Pt presents to discuss AUB and abdominal cramping. Discussed removal of IUD and switch to nuva ring. Pt agrees to plan of care. Pt given ultrasound to have obtained. Discussed dx lap as well for future. Documented by Gladis Almanza LPN on behalf of: Jeremy Olmstead DO documented in this encounter [facility] 01-04-2025 Hospital Discharg e instructions Patient Education 01/04/2025 10:40:43 Hematuria, Adult Hematuria, Adult Hematuria is blood in the urine. Blood may be visible in the urine, or it may be identified with a test. This condition can be caused by infections of the bladder, urethra, kidney, or prostate. Other possible causes include: Kidney stones. Cancer of the urinary tract. Too much calcium in the urine. Conditions that are passed from parent to child (inherited conditions). Exercise that requires a lot of energy. Infections can usually be treated with medicine, and a kidney stone usually will pass through your urine. If neither of these is the cause of your hematuria, more tests may be needed to identify the cause of your symptoms. It is very important to tell your health care provider about any blood in your urine, even if it is painless or the blood stops without treatment. Blood in the urine, when it happens and then stops and then happens again, can be a symptom of a very serious condition, including cancer. There is no pain in the initial stages of many urinary cancers. Follow these instructions at home: Medicines Take aows-tra-wsqonda and prescription medicines only as told by your health care provider. If you were prescribed an antibiotic medicine, take it as told by your health care provider. Do not stop taking the antibiotic even if you start to feel better. Eating and drinking Drink enough fluid to keep your urine pale yellow. It is recommended that you drink 3 4 quarts (2.8 3.8 L) a day. If you have been diagnosed with an infection, drinking cranberry juice in addition to large amounts of water is recommended. Avoid caffeine, tea, and carbonated beverages. These tend to irritate the bladder. Avoid alcohol because it may irritate the prostate (in males). General instructions If you have been diagnosed with a kidney stone, follow your health care provider's instructions about straining your urine to catch the stone. Empty your bladder often. Avoid holding urine for long periods of time. If you are female: ?After a bowel movement, wipe from front to back and use each piece of toilet paper only once. ?Empty your bladder before and after sex. Pay attention to any changes in your symptoms. Tell your health care provider about any changes or any new symptoms. It is up to you to get the results of any tests. Ask your health care provider, or the department that is doing the test, when your results will be ready. Keep all follow-up visits. This is important. Contact a health care provider if: You develop back pain. You have a fever or chills. You have nausea or vomiting. Your symptoms do not improve after 3 days. Your symptoms get worse. Get help right away if: You develop severe vomiting and are unable to take medicine without vomiting. You develop severe pain in your back or abdomen even though you are taking medicine. You pass a large amount of blood in your urine. You pass blood clots in your urine. You feel very weak or like you might faint. You faint. Summary Hematuria is blood in the urine. It has many possible causes. It is very important that you tell your health care provider about any blood in your urine, even if it is painless or the blood stops without treatment. Take cdwf-vlq-dtxksxu and prescription medicines only as told by your health care provider. Drink enough fluid to keep your urine pale yellow. This information is not intended to replace advice given to you by your health care provider. Make sure you discuss any questions you have with your health care provider. Document Revised: 12/26/2020 Document Reviewed: 12/26/2020 [employer] Patient Education 2023 [employer]. Follow Up Care 12/22/2024 14:27:43 With:Michaelle Morales PA-C, URL Address: When: Unknown Comments:F/U pending cysto [facility] [place] 01-04-2025 Note Patient Education Urology Hematuria, Adult Hematuria is blood in the urine. Blood may be visible in the urine, or it may be identified with a test. This condition can be caused by infections of the bladder, urethra, kidney, or prostate. Other possible causes include: ??? Kidney stones. ??? Cancer of the urinary tract. ??? Too much calcium in the urine. ??? Conditions that are passed from parent to child (inherited conditions). ??? Exercise that requires a lot of energy. Infections can usually be treated with medicine, and a kidney stone usually will pass through your urine. If neither of these is the cause of your hematuria, more tests may be needed to identify the cause of your symptoms. It is very important to tell your health care provider about any blood in your urine, even if it is painless or the blood stops without treatment. Blood in the urine, when it happens and then stops and then happens again, can be a symptom of a very serious condition, including cancer. There is no pain in the initial stages of many urinary cancers. Follow these instructions at home: Medicines ??? Take epui-bma-jdjxtkn and prescription medicines only as told by your health care provider. ??? If you were prescribed an antibiotic medicine, take it as told by your health care provider. Do not stop taking the antibiotic even if you start to feel better. Eating and drinking ??? Drink enough fluid to keep your urine pale yellow. It is recommended that you drink 3?4 quarts (2.8?3.8 L) a day. If you have been diagnosed with an infection, drinking cranberry juice in addition to large amounts of water is recommended. ??? Avoid caffeine, tea, and carbonated beverages. These tend to irritate the bladder. ??? Avoid alcohol because it may irritate the prostate (in males). General instructions ??? If you have been diagnosed with a kidney stone, follow your health care provider's instructions about straining your urine to catch the stone. ??? Empty your bladder often. Avoid holding urine for long periods of time. ??? If you are female: ? After a bowel movement, wipe from front to back and use each piece of toilet paper only once. ? Empty your bladder before and after sex. ??? Pay attention to any changes in your symptoms. Tell your health care provider about any changes or any new symptoms. ??? It is up to you to get the results of any tests. Ask your health care provider, or the department that is doing the test, when your results will be ready. ??? Keep all follow-up visits. This is important. Contact a health care provider if: ??? You develop back pain. ??? You have a fever or chills. ??? You have nausea or vomiting. ??? Your symptoms do not improve after 3 days. ??? Your symptoms get worse. Get help right away if: ??? You develop severe vomiting and are unable to take medicine without vomiting. ??? You develop severe pain in your back or abdomen even though you are taking medicine. ??? You pass a large amount of blood in your urine. ??? You pass blood clots in your urine. ??? You feel very weak or like you might faint. ??? You faint. Summary ??? Hematuria is blood in the urine. It has many possible causes. ??? It is very important that you tell your health care provider about any blood in your urine, even if it is painless or the blood stops without treatment. ??? Take zmsc-snh-bnzotrq and prescription medicines only as told by your health care provider. ??? Drink enough fluid to keep your urine pale yellow. This information is not intended to replace advice given to you by your health care provider. Make sure you discuss any questions you have with your health care provider. Document Revised: 12/26/2020 Document Reviewed: 12/26/2020 [employer] Patient Education ? 2023 [employer]. [facility] 12-02-2024 Evaluation note Diagnosis Onset Date Resolution Acute bronchitis due to other specified organisms acute December 02, 2024 2:19pm Fatigue noneactive December 02 2:19pm Cough noneactive December 02 2:19pm [facility] Work Phone: 1(118) 678-851403-18-2025 History of Present illness Narrative* Gladis Almanza LPN - 07/26/2024 1:30 PM EDTAssociated Order(s): IUD [...] nursing note reviewed. Exam conducted with a pulp mill team leader present. Vitals: There is no height or [...] given: yes Instructions and paperwork completed: yes [place] protocol: Patient states understanding of procedure being [...] of: Jeremy Olmstead DO [id number] Evaluation note* Diagnosis Onset Date Resolution Status Admit Date Hematuria acute June 23, 2024 11:30am Acute sinusitis noneactive June 23, 2024 11:30am Dysuria noneactive June 23, 2024 11:30am Elevated BP without diagnosi s of hypertension acute July 08, 025 2:31pm Elevated transaminase level acute July 08, 2024 2:31pm Hematuria acute July 08, 2024 2:31pm Obesity acute July 08, 2024 2:31pm Submandibular lymphadenopathy noneac tive July 08, 2024 2:31pm Odynophagia noneactive June 2:31pm Strep throat noneactive June 2:31pm [facility] Work Phone: 1([phone]) 378-764312-05-2024 Evaluation note* Diagnosis Onset Date Resolution Status Admit Date Acute bronchitis due to other specified organisms acute Decemb er 2023 9:39am Hematuria acute April 14, 2024 9:39am Nausea & vomiting acute Decembe r 2023 9:39am Hematuria acute June 23, 2024 11:30am Acute sinusitis noneactive June 23, 2024 11:30am Dysuria noneactive June 23, 2024 11:30am [facility] Work Phone: 1(388) 147-213112-05-2024 Evaluation note* Diagnosis Onset Date Resolution Status [...] 2024 2:31pm Strep throat noneactive June 2:31pm [facility] Work Phone: 1(905) 988-329409-21-2023 Evaluation note* Encounter Date Diagnosis Assessment Notes [...] and cancers. May result in prolonged coughing [facility] Other 04-11-2023 Evaluation note* Encounter Date Diagnosis Assessment Notes Treatment Notes Treatment Clinical Notes Aug, Acute bronchitis due to other specified organisms (ICD-10 - J20.8) [facility] Other 03-20-2023 Evaluation note* Encounter Date Diagnosis Assessment Notes Treatment Notes Treatment Clinical Notes Jul, Acute non-recurrent maxillary sinusitis (ICD-10 - J01.00) Instructed to use Robitussin or Mucinex for cough, saline or Flonase NS for congestion, Tylenol for pain and fever. [facility] Other 03-08-2023 Evaluation note* Encounter Date Diagnosis [...] Z86.59) Initiate counseling for anxiety and depression [facility] Other Evaluation + Plan note Future Appointments Appointment Date:02/01/2025 01:30:00 PM Scheduled Provider:Julieth Lassiter MD Location:[facility] Appointment Type:URO Procedure 15 min [facility] evaluation noteNo InformationNort Skipola Other Evaluation noteNo assessment information available [facility] Work Phone: Evaluation note* Diagnosis Encounter for IUD removal Encounter for IUD insertion Insertion of intrauterine contraceptive device Pelvic cramping Presence of intrauterine contraceptive device (IUD) Presence of intrauterine contraceptive device Encounter for IUD removal [facility] Diagnosis Abnormal uterine bleeding (AUB) Abdominal cramping Abdominal pain, unspecified site documented in this encounter [facility] general [...] 2017 Hospitalization History See past surgical hx [facility] Other Hospital course Narrative No data available for this section [facility] Hospital Discharge instructions No data available for this section [facility] progress note No data available for this section [facility] reason for referral (narrative)No reason for referral information available[facility] Work Phone: Summary Purpose Family History No Family History Records FoundNo Family History Records FoundNo Family History Records FoundNo Family History Records Found No data available for this section No Family History Records FoundNo Family History Records Found No data available for this section No Family History Records Found Advance Directives No Advanced Directives Records Found Advance Directive Response Recorded Date/ Time Advance Directives No April 12:35am Advance Directive Response Recorded Date/ Time Advance Directives No April 11:35pm Chief Complaint and Reason for Visit Chief Complaint Admit Date sore throat/swollen glands December 02 2:19pm UA December 27, 2024 3: 34pm Reason for Visit Admit Date Acute bronchitis [...] section and content) DATE CREATED AUTHOR 11/03/2017 [facility] DATE CREATED AUTHOR AUTHOR'S ORGANIZ ATION 09/10/2022 [facility] DATE CREATED AUTHOR AUTHOR'S ORGANIZ ATION 12/10/2024 [facility] DATE CREATED AUTHOR AUTHOR'S ORGANIZ ATION 12/30/2024 [facility] DATE CREATED AUTHOR AUTHOR'S ORGANIZ ATION 01/19/2025 [facility] DATE CREATED AUTHOR AUTHOR'S ORGANIZ ATION 01/25/2025 [facility] DATE CREATED AUTHOR AUTHOR'S ORGANIZ ATION 02/03/2025 [facility] REASON FOR VISIT (unrecogniz ed section and content) Reason Comments IUD removal/insertion Reason Comments Vaginal Bleeding Abdominal Cramping Care Teams (unrecognized sec tion and content) Team Status: Active Member Role Status Dates Susan Aparicio MD Primary Care Provider Active Team Status: Inactive Member Role Status Dates Susan Aparicio MD Primary Care Provider Active Start: August 31, 2023 End: August 31, 2023 Jeremy Olmstead Attending Provider Active Start: Ap ril 2023 End: August 31, 2023 Team Status: [...] July 08, 2024 End: July 08, 2024 [employer] Relationship Specialty Start Date End Date Krishna Hernandez MD [address] [place] [address] PCP - General Internal Medicine 08/10/23 Team Status: Active Member Role Status Dates Krishna Hernandez DO Primary Care Provide r, Attending Provider Active Start: August 08, 2024 Team Status: Inactive Member Role Status Dates Krishna Hernandez DO Attending Provider Active Sta rt: August 08, 2024 End: August 08, 2024 [employer] Relationship Specialty Start Date End Date Krishna Hernandez MD [address] [place] [address] PCP - General Internal Medicine 08/10/23 Team [...] Provider Active Sta rt: December 07, 2024 Team Status: Active Member Role Status Dates Krishna Hernandez DO Attending Provider Active Sta rt: December 21, 2024 Team Status: Inactive Member Role Status Dates Krishna Hernandez DO Primary Care Provider Active Start: December 27, 2024 End: December 27, 2024 Krishna Hernandez DO Attending Provider Active Sta rt: December 27, 2024 End: December 27, 2024 [employer] Relationship Specialty Start Date End Date Krishna Hernandez [address] [place] [address] PCP - General Internal Medicine 08/10/23 [employer] Relationship Specialty Start Date End Date Krishna Hernandez [address] [place] [id number] PCP - General Internal Medicine 08/10/23 Goals (unrecognized section and content) Goals may [...] BE BASED ON THE PRIMARY CLINICAL RECORDS. [facility] [employer] provides no warranty or guarantee of the accuracy or completeness of information in this document.
== END 2025-02-21 07:08 | disposition home or self-care (01) ==
LOC: US 07:07
PROVIDERS: PCP Internal Medicine; Visit Provider Obstetrics & Gynecology
DX: N93.9 Abnormal uterine and vaginal bleeding, unspecified (principal); R10.9 Unspecified abdominal pain; Z97.5 Presence of (intrauterine) contraceptive device
CPT/HCPCS: 76830; 76856

== ENCOUNTER 2025-03-13 20:07 | Outpatient (REF) | payer BC, SELFPAY ==
--- OUTSIDE RECORDS SUMMARY | 2025-03-13 10:20 | XMS_ITS | Encounter Summary ---
Author Organization [facility] Address [address] [place] [address] Care Team Providers Care Bun Machine Operator Name Role Phone Krishna Hernandez Primary Care Provider [phone] Reason for Visit * ReasonCommentsGynecologic Exam Encounter Details DateTypeDepartmentCare Team (Latest Contact Info)Xxvwxkbuoqq18/03/2025 10:20 AM ESTProcedure Visit [facility] [address] [place] [address] Jacobo Olmstead DO [address] [place], [facility]11 Well woman exam with routine gynecological exam Social History Tobacco UseTypesPacks/DayYears UsedDateSmoking Tobacco: Never Assessed CommentsNoSex and Gender InformationValueDate RecordedSex Assigned at Nafxwa1108/28/2023 5:09 PM EDTLegal QrvPjiwfj59/15/2023 11:47 PM EDTGender ZtwrwypvSwdbgg05/19/2024 5:09 PM EDTSexual IkrymqrfpahDgvqbwhp85/19/2024 5:09 PM EDTdocumented as of this encounter Last Filed Vital Signs Vital SignReadingTime TakenCommentsBlood Brfsvabx269/7003/13/2025 10:33 AM EST Pulse--Temperature--Respiratory Rate--Oxygen Saturation--Inhaled Oxygen Concentration--Sacfpa400 kg (242 lb)03/13/2025 10:33 AM ESTHeight--Body Mass Index--documented in this encounter Progress Notes * Charu Driscoll LPN - 03/13/2025 10:20 AM EST Reason for Appointment: Patient ID: Mayra Camarena is a 30 y.o. female who presents for Gynecologic Exam Patient presents today for Annual Exam. MEDICATIONS Current Outpatient Medications Medication Instructions ??? citalopram (CELEXA) 40 mg, Daily ??? ibuprofen 800 mg, Every 8 hours PRN ALLERGIES Allergies Allergen Reactions ??? Doxycycline GI intolerance Other Reaction(s): Unknown Reaction PROBLEMS Active Ambulatory Problems Diagnosis Date Noted ??? No Active Ambulatory Problems Resolved Ambulatory Problems Diagnosis Date Noted ??? No Resolved Ambulatory Problems No Additional Past Medical History HISTORY PAST MEDICAL HISTORY SOCIAL HISTORY No past medical history on file. Social History Tobacco Use ??? Smoking status: Not on file ??? Smokeless tobacco: Not on file Substance Use Topics ??? Alcohol use: Not on file ??? Drug use: Not on file FAMILY HISTORY No family history on file. SURGICAL HISTORY Past Surgical History: Procedure Laterality Date ??? IR LUMBAR PUNCTURE 03/21/2017 IR LUMBAR PUNCTURE [...] appearance. She is well-developed. Genitourinary: Vulva normal. IUD strings visualized. Breasts: Breasts are soft. Right: Normal. Left: Normal. Cardiovascular: Rate and Rhythm: Normal rate and [...] nursing note reviewed. Exam conducted with a producer director present. Vitals: There is no height or weight on file to calculate BMI. BP: 122/70 No LMP recorded (lmp unknown). (Menstrual status: IUD). Assessment/Plan ICD-10-CM 1. Well woman exam with routine gynecological exam Z01.419 Pap Smear HPV DNA probe, amplified Annual Exam: Patient presents today for an annual exam. Patient states she is doing well and has no complaints. Pap was obtained without difficulty. Orders Placed This Encounter Procedures ??? HPV DNA probe, amplified Follow Up: Patient is to return in one year for annual unless needed otherwise. Documented by Charu Driscoll LPN on behalf of: Jacobo Olmstead DO documented in this encounter Plan of Treatment DateTypeDepartmentCare Team (Latest Contact Info)Abpharoncgi54/04/2026 2:00 PM ESTProcedure Visit [facility] [address] [place] [address] Jacobo Olmstead DO [address] [place] [address] NameTypePriorityAssociated DiagnosesOrder SchedulePap SmearPathology and CytologyRoutine Well woman exam with routine gynecological exam Ordered: 03/13/2025HPV DNA probe, amplifiedMicrobiologyRoutine Well woman exam with routine gynecological exam Ordered: 03/13/2025documented as of this encounter Visit Diagnoses Diagnosis Well woman exam with routine gynecological exam Routine gynecological examination documented in this encounter Care Teams Team MemberRelationshipSpecialtyStart DateEnd Date Krishna Hernandez DO [address] [facility] [place] [phone] PCP - GeneralInternal Medicine08/10/23documented as of this encounter
--- OUTSIDE RECORDS SUMMARY | 2025-03-13 20:14 | XMS_ITS | CCD ---
Author Organization [facility]iniSyak Care Team Providers Care Typesetting Machine Operator/Tender Name Role Phone PHYSICIAN, DEFAULT Unavailable Unavailable PHYSICIAN, DEFAULT Unavailable Unavailable Krishna Lott Unavailable KAYLIE, DR STRONG Primary Care Unavailable MARIBELL ., MANUELITO Admitting Unavailable PEPE ., AALIYAH STAUFFER Consulting Unavailkemi REYNA ., MANUELITO Attending Unavailable ROGELIO FUCHS Consulting Unavailable MARIBELL ., MANUELITO Consulting Unavailable SONIDO ., DR BISHOP Attending Unavailabl e SONIDO ., DR BISHOP Consulting Unavailkemi e SONIDO ., DR BISHOP Admitting Unavailkemi LOTT, DR STRONG Primary Care Unavailable MARKUS, DR SUSAN Hudson Admitting Unavailable MARKUS, DR SUSAN Hudson Attending Unavailable MARKUS, DR SUSAN Hudson Consulting Unavailable Susan Ramirez Unavailable MD Susan Ramirez Primary Care Provider [phone] Jeremy Olmstead Attending Provider [phone] Krishna Lott MD Primary Care Provider Krishna Lott DO Attending Provider [phone] Krishna Lott DO Primary Care Provider Krishna Lott DO Attending Provider Krishna Lott Attending Unavailable Krishna Lott Admitting Unavailable Krishna Lott Attending Unavailable Krishna Lott Admitting Unavailable KRISHNA LOTT Primary Care Unavailable KRISHNA LOTT Primary Care Unavailable ROLO ESTES Admitting Unavailable PRATEEK PONCE Attending Unavailable KRISHNA LOTT Primary Care Unavailable ROSA KNOWLES Attending Unavailable KRISHNA LOTT Primary Care Unavailable TRUE PHILLIPS Attending Unavailable KRISHNA LOTT Primary Care Physician Krishna Lott DO Primary Care Provider JEREMY OLMSTEAD Attending Unavailable JEREMY OLMSTEAD Referring Unavailable JEREMY OLMSTEAD Attending Unavailable JEREMY OLMSTEAD Referring Unavailable Julieth Lassiter Attending Unavailable Michaelle Morales Attending Unavailable KRISHNA LOTT Referring Unavailable Michaelle Morales Attending Unavailable Michaelle Morales Admitting Unavailable Krishna Lott DO Primary Care Provider Allergies Allergy ClassificationReported Allergen(s)Allergy TypeDate of OnsetReaction(s) Facility (11 sources)Doxycycline; Translations: [DOXYCYCLINE]Drug Bjbgerh99-27-7771FN intolerance, Upset stomach (finding)[facility] (1 source)DoxycyclineDrug Isshrwa13-75-6044LthyztbnrThe [facility] Medications Current Medications MedicationDrug Class(es)DatesSig (Normalized)Sig (Original)[id number] 200 actuat albuterol 0.09 mg/actuat metered dose inhaler (6 sources)beta2-Adrenergic Agonisttake 1 puff(s) by inhalation every four hours as neededAlbuterol Sulfate HFA 108 (90 Base) MCG/ACT 1 puff as needed Inhalation every 4 hrs Activetake 1 puff(s) by inhalation every four hours as neededAlbuterol Sulfate HFA 108 (90 Base) MCG/ACT 1 puff as needed Inhalation every 4 hrs Activeamoxicillin 875 mg oral tablet (14 sources)Penicillin-class AntibacterialStart: 44-87-9743iios 1 tablet by mouth twice dailyStart: 06-23-2024 End: 41-95-6428ccko 1 tablet by mouth twice dailyAmoxicillin 875 mg tablet Discontinued 875 MG PO Twice daily 27 02June 23, 2024 1:00am July 08, 2024 3:41pmStart: 36-01-6619xdga 1 capsule by mouth every eight hours Amoxicillin 500 MG 1 capsule Orally every 8 hrs for 7 days May, Active amoxicillin 875 mg / clavulanate 125 mg oral tablet (4 sources)Penicillin-class AntibacterialStart: 85-03-3865fxtm 1 tablet by mouth every twelve hoursAmoxicillin-Pot Clavulanate 875-125 MG 1 tablet Orally every 12 hrs for 7 days Aug, Activeazithromycin 250 mg oral tablet (7 sources)Macrolide AntimicrobialStart: 12-28-7947Mhkacbmfnfmp 250 MG as directed Orally daily for 5 days Jan, Activecitalopram 40 mg oral tablet (20 sources)Serotonin Reuptake InhibitorStart: 73-28-8451xfnc 1 tablet by mouth once dailycitalopram (CeleXA) 40 MG tablet Take 40 mg by mouth Daily 01/04/2025 ActiveStart: 10-07-2024 End: 11-68-1423icuh 1 tablet by mouth once dailyStart: 09-21-2024 End: 29-44-9682hfix 1 tablet by mouth once daily in the morningCitalopram 20 mg tablet Discontinued 20 MG PO Every morning September 21, 2024 3:58pm October 07, 2024 10:06amStart: 05-02-2020 End: 78-83-9180kmav 1 tablet by mouth once daily in the morningCitalopram 20 mg Tablet Discontinued 20 MG PO Every morning May 02, 2020 1:00am April 14, 2024 10:54amescitalopram 10 mg oral tablet (6 sources)Serotonin Reuptake InhibitorStart: 81-75-8500cjxu 1 tablet by mouth every twenty-four hoursEscitalopram Oxalate 10 MG 1 tablet Orally Once a day for 30 days Jul, Activeibuprofen 800 mg oral tablet (7 sources)Nonsteroidal Anti-inflammatory DrugStart: 09-14-8261toue 1 tablet by mouth every eight hours as neededibuprofen 800 MG tablet Take 800 mg by mouth every 8 (eight) hours if needed 06/25/2024 ActiveMultivitamin preparation (2 sources)Start: 65-40-4569dafdfkchimjl Refill(s) 0 Start Date: 01/04/25 Status: Ordered Repeat number: 1nitrofurantoin, macrocrystals 25 mg / nitrofurantoin, monohydrate 75 mg oral capsule (6 sources)Nitrofuran Antibacterialtake 1 capsule by mouth every twelve hoursNo Name (No Known Home Meds) (3 sources)Start: 88-01-2954Nl Name (No Known Home Meds) Active July 08, 2024 1:00amStart: 49-03-9716Df Name (No Known Home Meds) Active July 08, 2024 12:00amStart: 68-99-0574Le Name (No Known Home Meds) Active April 30, 2020 1:00amomeprazole 40 mg delayed release oral capsule (3 sources)Proton Pump InhibitorStart: 87-76-1577Dfrjfprxeo 40 MG 1 capsule Orally Once a day, taken on empty stomach, followed in 30 minutes by bkfst for 30 days Aug, Activephenazopyridine hydrochloride 200 mg oral tablet (6 sources)take 1 tablet by mouth every eight hourspredniSONE 20 mg oral tablet (2 sources)Start: 12-02-2024 Completed/Discontinued Medications MedicationDrug Class(es)DatesSig (Normalized)Sig (Original)cefdinir 300 mg oral capsule (6 sources)Cephalosporin AntibacterialStart: 04-14-2024 End: 59-21-9119qwvn 1 capsule by mouth twice dailyCefdinir 300 mg capsule Discontinued 300 MG PO Twice daily 02 12April 14, 2024 1:00am July 08, 2024 3:36pmlevonorgestrel 0.346967 mg/hr intrauterine system (20 sources)Progestin, Progestin-containing Intrauterine DeviceStart: 08-12-2024 End: 50-67-2758Bncsjajkjtxbxf (Mirena, 52 MG,) 20 MCG/DAY intrauterine device 52 mg by Intrauterine route continuously IUD was placed during recent surgery on 08/12/2024 [facility]: 75571-844-18 Lot# [id number] Expiration: 09/202608/12/2024 03/13/2025 DiscontinuedStart: 07-26-2024 End: 85-09-0417Wmydlhthiokccw intrauterine device 52 mgMirena Activemelatonin 5 mg oral tablet (7 sources)Start: 05-02-2020 End: 72-76-5956eaeb 1 tablet by mouth once daily at bedtime as neededMelatonin 5 mg Tablet Discontinued 5 MG PO Daily at bedtime as needed for Insomnia May 02, 2020 1:00am April 14, 2024 10:54amnicotine 2 mg chewing gum (7 sources)Cholinergic Nicotinic AgonistStart: 05-02-2020 End: 12-25-7216Zhzkzqdn (Polacrilex) 2 mg Gum Discontinued 2 MG BUCCAL Q2H as needed for Nicotine Cravings May 02, 2020 1:00am April 14, 2024 10:54amondansetron 4 mg disintegrating oral tablet (6 sources)Serotonin-3 Receptor AntagonistStart: 04-14-2024 End: 64-37-6652evmn 1 tablet by mouth every eight hours as needed for nausea and vomitingOndansetron 4 mg tablet,disintegrating Discontinued 4 MG PO Every 8 hours as needed for nausea and vomiting 10 3 April 14, 2024 1:00am July 08, 2024 3:36pm Problems Active Problems Problem ClassificationProblemDateDocumented DateEpisodic/ChronicAbdominal pain (20 sources)Pelvic and perineal pain; Translations: [Pelvic and perineal pain] Onset: 07-31-3202EwpeesgeAntiq bronchitis (16 sources)Acute bronchitis due to other specified organisms; Translations: [Acute bronchitis]Onset: 15-65-6050UmzvdblrQqtjymcyfxpies/social admission (3 sources)Encounter for blood-alcohol and blood-drug test; Translations: [Encounter for blood-alcohol and blood-drug test]EpisodicAllergic reactions (7 sources)Contact dermatitis; Translations: [Unspecified contact dermatitis, unspecified cause]EpisodicAnxiety disorders (7 sources)Generalized anxiety disorder; Translations: [Generalized anxiety disorder]ChronicAsthma (3 sources)Uncomplicated asthma; Translations: [Unspecified asthma, uncomplicated]ChronicChronic obstructive pulmonary disease and bronchiectasis (7 sources)Bronchitis; Translations: [Bronchitis, not specified as acute or chronic]EpisodicContraceptive and procreative management (7 sources)Presence of (intrauterine) contraceptive device; Translations: [Surveillance of intrauterine devicecontraception]Onset: EpisodicEsophageal disorders (6 sources)Gastroesophageal reflux disease without esophagitis; Translations: [Gastro-esophageal reflux disease without esophagitis]ChronicEsophageal disorders (3 sources)Esophageal disorders; Translations: [Gastro-esophageal reflux disease with esophagitis, without bleeding]Onset: 85-58-6832Lmgtdmagn hypertension (2 sources)Hypertensive disorderOnset: 102627-56-7752FwskihdYdolwivksyfug symptoms and ill-defined conditions (20 sources)Genitourinary symptoms; Translations: [Unspecified symptoms and signs involving the genitourinary system]Onset: 401477-52-3051Lmithlqy Headache; including migraine (17 sources)Refractory migraine with aura; Translations: [Migraine with aura, intractable, with status migrainosus]Onset: 192277-93-6454QpezjtpOnublws on above:Problem List clean-up per request of Phys. EHR CmteOutside Source Comment: Problem List clean-up per request of Phys. EHR CmteHeadache; including migraine (7 sources)Frequent headache; Translations: [Frequent headaches]Episodic Hemorrhage during ; abruptio placenta; placenta previa (3 sources)Antepartum hemorrhage; Translations: [Antepartum hemorrhage, unspecified, third trimester]EpisodicHypertension complicating ; childbirth and the puerperium (3 sources)Maternal hypertension; Translations: [Unspecified maternal hypertension, third trimester]ChronicHypertension complicating ; childbirth and the puerperium (6 sources)-induced hypertension; Translations: [Gestational [-induced] hypertension withoutsignificant proteinuria, third trimester] Resolved: 19-85-9439NnuygbvtRmsgqoj and fatigue (2 sources)Fatigue; Translations: [Other fatigue]15-14-4555SdtacabmNlvshpkwg disorders (3 sources)Amenorrhea; Translations: [Amenorrhea, unspecified]Onset: 09-27-2013 ChronicMood disorders (16 sources)Chronic depression; Translations: [Major depressive disorder, single episode, unspecified]46-10-0849TohvpvrOjwlnhm on above:Problem List clean-up per request of Phys. EHR CmteOutside Source Comment: Problem List clean-up per request of Phys. EHR CmteNausea and vomiting (10 sources)Nausea and vomiting; Translations: [Nausea with vomiting, unspecified]25-65-8039EogdmtekLwees circulatory disease (9 sources)Elevated blood-pressure reading without diagnosis of hypertension; Translations: [Elevated blood-pressure reading, without diagnosis of hypertension]78-72-3819EnaqsukfTlnkj circulatory disease (1 source)Elevated blood-pressure reading, without diagnosis of hypertension; Translations: [Elevated blood pressure reading without diagnosis of hypertension]96-08-6657LrshzhvcYtbdj complications of (6 sources)High risk ; Translations: [Supervision of high risk , unspecified, second trimester]EpisodicOther complications of (3 sources)Supervision of high risk with poor obstetric history; Translations: [Supervision of with other poor reproductive or obstetric history, second trimester]EpisodicOther complications of (3 sources)Supervision of high risk ; Translations: [Supervision of other high risk pregnancies, third trimester]EpisodicOther complications of (3 sources)Reduced movement; Translations: [Decreased movements, unspecified trimester, not applicable or unspecified]EpisodicOther female genital disorders (2 sources)Abnormal uterine bleeding; Translations: [Abnormal uterine and vaginal bleeding, unspecified]32-51-2485YfpayhlKqfxj gastrointestinal disorders (2 sources)Dysphagia, unspecified; Translations: [Dysphagia, unspecified] 18-15-2739SojnzlljJctcn injuries and conditions due to external causes (4 sources)Other injury of unspecified body region, initial encounter; Translations: [Bruising]EpisodicOther injuries and conditions due to external causes (3 sources)Traumatic AND/OR non-traumatic injury; Translations: [Other injury of unspecified body region, initial encounter]EpisodicOther liver diseases (9 sources)Enzyme level - finding; Translations: [Transaminasemia]07-08-2024 EpisodicOther liver diseases (1 source)Abnormal levels of other serum enzymes; Translations: [Other nonspecific abnormal serum enzyme levels]25-18-9822AehdhhgiWzyxs lower respiratory disease (4 sources)Wheezing; Translations: [Wheezing]EpisodicOther lower respiratory disease (2 sources)Cough; Translations: [Cough]00-53-6274SifzvvraPnqru nutritional; endocrine; and metabolic disorders (6 sources)Body mass index 30+ - obesity; Translations: [Obesity, unspecified] ChronicOther nutritional; endocrine; and metabolic disorders (2 sources)Obesity, unspecified; Translations: [Obesity, unspecified]Chronic Other nutritional; endocrine; and metabolic disorders (3 sources)Obese class II; Translations: [Body mass index (BMI) 35.0-35.9, adult]ChronicOther nutritional; endocrine; and metabolic disorders (3 sources)Simple obesity ; Translations: [Other obesity due to excess calories] Onset: 34-56-9024FbqukudKmphd nutritional; endocrine; and metabolic disorders (9 sources)Obesity; Translations: [Obesity, unspecified]61-40-7997LdumuysMnymk and delivery including normal (12 sources) test positive; Translations: [Encounter for test, result positive]Onset: 09-27-2013 Resolved: 29-45-5281CeliizcaNdtve screening for suspected conditions (not mental disorders or infectious disease) (7 sources)Encounter for screening for malignant neoplasm of cervix; Translations: [Urine test negative]Onset: 41-08-5989JsosvctiKwkypmvz (3 sources)Supervision of high risk with history of previous section; Translations: [Maternal care for unspecified type scar from previous delivery]EpisodicResidual codes; unclassified (5 sources)Tobacco user; Translations: [Tobacco use]Onset: EpisodicScreening and history of mental health and substance abuse codes (1 source)Personal history of other mental and behavioral disordersEpisodic Spondylosis; intervertebral disc disorders; other back problems (7 sources)Sciatica; Translations: [Lumbago with sciatica, left side]Episodic Substance-related disorders (14 sources)Nicotine dependence, cigarettes, uncomplicated; Translations: [Nicotine dependence]Onset: 92-07-8318RttzlcvBccgpwr and intentional self- inflicted injury (9 sources)Suicidal thoughts; Translations: [Suicidal ideations]04-22-2023 EpisodicComment on above:Problem List clean-up per request of Phys. EHR Cmte Outside Source Comment: Problem List clean-up per request of Phys. EHR Cmte Unclassified (3 sources)CONTACT W/AND (SUSP) EXPOS COVID-19; Translations: [CONTACT W/AND (SUSP) EXPOS COVID-19]Onset: 04-43-7465Fednwhdyodmx (1 source)Left Ankle Pain, InjuryOnset: 60-83-5178Pbenywhjpnjp (2 sources)Severe acute respiratory syndrome coronavirus 2 ujchsata21-06-8595 Comment on above:Outside Source Comment: Problem List clean-up per request of Phys. EHR CmteUrinary tract infections (4 sources)Cystitis, unspecified without hematuria; Translations: [Urinary tract infectious disease]Onset: 12-12-2750OtedmfvrGgmzy infection (7 sources)COVID-19; Translations: [Severe acute respiratory syndrome coronavirus 2 (SARS-CoV-2) detected]82-43-2370HrvoaybfLtjmvqn on above:Problem List clean-up per request of Phys. EHR CmteViral infection (7 sources)Disease caused by 2019-nCoV; Translations: [COVID-19] Past or Other Problems Problem ClassificationProblemDateDocumented DateEpisodic/ChronicImmunizations and screening for infectious disease (3 sources)Sexually transmitted infectious disease; Translations: [Encounter for screening for infections witha predominantly sexual mode of transmission] Resolved: 61-45-7760RqeburldPxrlmacmjvan; infection of eye (except that caused by tuberculosis or sexually transmitteddisease) (6 sources)Acute conjunctivitis; Translations: [Unspecified acute conjunctivitis]Onset: 37-69-2335HgteglldZjxgwuiotkpuf (5 sources)Localized enlarged lymph nodes; Translations: [Enlargement of lymph nodes]Onset: 913980-88-9274BmtiqhqbAtakopwmdhwlb mental health disorders (3 sources) depression; Translations: [ depression] Resolved: 56-08-2622IgqvbsypRxbsmuvwoxc chest pain (4 sources)Chest pain; Translations: [Other chest pain]Onset: 48-21-3446Jtnwzaqo Other circulatory disease (3 sources)Cardiovascular symptoms; Translations: [Other specified symptoms and signs involving the circulatory and respiratory systems]Onset: 10-19-2017 EpisodicOther complications of ; puerperium affecting management of mother (3 sources) delivery - delivered; Translations: [Encounter for delivery without indication] Resolved: 05-43-2925RkoyqxiyUyqax complications of (3 sources)Supervision of with insufficient care, third trimester; Translations: [Suprvsn of preg w insufficient antenat care, third trimester] Resolved: 42-48-0003PcdxajcfRokpd nervous system disorders (3 sources)Dysarthria; Translations: [Dysarthria and anarthria]Onset: 01-12-2018 EpisodicOther non-traumatic joint disorders (1 source)Ankle painOnset: 11-71-2601NzbhrfxjYgqyg upper respiratory disease (1 source)Pain in throatOnset: 20-82-4545UaaawuekBxmzt upper respiratory infections (20 sources)Acute maxillary sinusitis, unspecified; Translations: [Acute upper respiratory infection]Onset: 85-15-3476GyibjofkPmxbhjgp codes; unclassified (3 sources)History of uterine scar from previous surgery; Translations: [History of uterine scar from previoussurgery] Resolved: 56-89-2381LtscfaajLslzypj and strains (1 source)Sprain of unspecified ligament of left ankle, initial encounter; Translations: [Sprain of unspecified ligament of left ankle, initial encounter] Onset: 83-19-7006NvowtxoqOxbyfndlvhxm (1 source)CONTACT W/AND (SUSP) EXPOS COVID-19; Translations: [CONTACT W/AND (SUSP) EXPOS COVID-19]Onset: 09-25-2021 Results Test NameValueInterpretationReference RangeFacilityUS PELVIC COMPLETE W/ TVon 35-23-1027PR PELVIC COMPLETE W/ TVFINDINGS: Uterus 12.7 x 3.5 x 5.5 cm [...] intramural mass. TRANSCRIBED BY: ELECTRONICALLY SIGNED BY: Ken BellalNot AvailableComment on above:Order Comment: US PELVIS-TRANSVAG IF INDICATED No LMP recorded. (Menstrual status: No Periods).Urine Cytology ([facility])on 04-04-2209Mlgwe CytologyDiagnosis InfoInvalid Interpretation [facility] HospitalComment on above:Result Comment: A:Urine,Clean Catch:Voided Interpretation - Adequate cellularity for evaluation. CPT 23433 MicroScopic Description - Adequacy - Gross Description Site ID:A color Yellow fixative Alcohol Specimen designated Clean Catch received in alcohol preservative and labeled with the patient???s name, consists of 40ml clear yellow fluid. Electronically signed by : on: 01/10/2025 13:43:27Performed By: #### [id number] #### [facility] [address], [place] [address]Ycneomeqxf Visit Summaryon 46-91-2330Rqehqgzrzy Visit Summary Ambulatory Visit Summary ADRIENNE CAMARENA :1995 Visit Date:01/04/2025 Ambulatory Visit Instructions Your Diagnosis Gross hematuria Smoker Your Care Team Attending Physician - Michaelle Morales PA-C Primary Care Physician - KRISHNA LOTT DO Referring Physician - KRISHNA LOTT DO This Is Your Medications List citalopram (citalopram 40 mg Tab) multivitamin Discharge Vitals Heart Rate (Peripheral) 72 Blood Pressure 124/79 Height 163 cm Height 64 in Weight 104.6 kg Weight 230.603 lb BMI 39.37 What to do next Scheduled Follow-Up Appointments Thursday 1:30 PM EDT With: Julieth Lassiter MD Where: [facility] [address] [address]- You Need to Schedule the Following Appointments [...] of the bladder, urethra, kidney, or prostate. Otherpossible causes include: ??? Kidney stones. ??? Cancer [...] blood in your urine, even if it ispainless or the blood stops without treatment. Blood in the urine, when it happens and then stops and then happens again, can be a symptom of a very serious condition, including cancer. There is no pain in the initial stages of many urinary cancers. Follow these instructions at home: Medicines ??? Take ywox-wpb-nuyfxtb and prescription medicines only as told by your health care provider. ??? If you were prescribed an antibiotic medicine, take it as told by your health care provider. Do notstop taking the antibiotic even if you start [...] You pass blood clot (more content not included)...[facility] HospitalProvider Letteron [phone] LetterProvider Letter January 04, 2025 ADRIENNE CAMARENA [address] [facility] [address] [place] [address] : 1995 To Whom It May Concern, Please excuse above patient from work. The patient had an appointment at [facility] today, 01/04/25. May Return to Work On: 01/04/25 Restrictions: None Comments: _ Sincerely, Michaelle Morales PA-C [facility] [address] [place] [id number] Valley HospitalUrine Cytology ([facility])on 18-07-2437IP Method of ExtractionBladder UrineNoBarberton Citizens Hospital Comment on above:Performed By: #### [id number] #### [facility] [address], [place] [address]EY Number of Bujx1Wikohsi Interpretation [facility] HospitalComment on above:Performed By: #### [id number] #### [facility] [address], [place] [address]CL SpecimenClean CatchOhio Valley HospitalComment on above:Performed By: #### [id number] #### [facility] [address], [place] [address]ZP Type of ServiceConsultOhio Valley Hospital Comment on above:Performed By: #### [id number] #### [facility] [address], [place] [address]Wxryevy Office/Clinic Noteon 48-82-6332Pfruccb Office/Clinic NoteUrology Office/Clinic Note Chief Complaint new patient HPI [...] no acute distress. 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 Gross hematuria (R31.0: Gross hematuria) Micro UA 12/07/24 - RBC 2-5 UCX 12/07/24 - 50K mixed bacterial skin contaminants CTAP w/wo contrast 12/21/24 [facility] - no acute findings Labs 12/21/24 - Cr 0.57, GFR > 60 [facility] ER 12/28/24 - c/o gross hematuria and R flank pain CTAP wo con 12/28/24 - multiple phleboliths around ureters distally in pelvis, no obvious obstructive uropathy, no hydro UA today w/ large blood and trace leuks *She denies sxs of infection Shares painless gross hematuria first occurred 1.5 months ago. She was evaluated by HOME VISIT FIELD CARE MANAGER (Dr. Olmstead), he exhanged her IUD but [...] hematuria with patient. These include: trauma, Tumor, infection/inflammation, stones, period/menses (pseudohematuria), obstructive uropathy (urolithiasis, stricture, [...] urinary tract pathology. The rationale for this wo rkup has been discussed, and all questions have been answered. -Send urine for cytology today -Schedule cystoscopy. The risks and benefits for cystoscopy have been discussed. The risks include bleeding, infection, and irritation of the bladder and urinary channel, among others. The patient, after being informed of procedural details and after questions have been answered, wishes to proceed.Full informed consent has been obtained. Will order Local anesthesia. -F/U pending cysto Ordered: 13690 Measure Post Void residual urine and/or bladder capacity by US- non-imaging Urnls Dip Stick Auto w/o Microscopy POC 45272 2. Smoker (F17.200: Nicotine dependence, unspecified, uncomplicated) Increased risk of urothelial CA -Smoking cessation encouraged Follow-up With When Contact Information Michaelle Morales PA-C, RJ Additional Instructions: F/U pending cysto Patient Education [...] Negative (01/04/25 09:27:00) Leuko (more content not included)...[facility] HospitalComment on above:Result Comment: Electronically Signed By: Carmen MOY, Michaelle\.br\Date and Time Signed: 01/04/25 10:44 EDTCBC WITH AUTO DIFFERENTIALon 98-91-8684QYYBZZYSR ABSOLUTE COUNT (10*3/UL) BY AUTOMATED COUNT0.0 10*3/uLNormal0.0-0.2ProMedica Madera Community HospitalComment on above:Performed By: #### CBCA, BMP #### [facility] ([id number]) [address] [place] [address] 04114YVQBQWRWS RELATIVE PERCENT BY AUTOMATED COUNT0.3 %Normal The [facility] HospitalComment on above:Performed By: #### CBCA, BMP #### [facility] ([id number]) [address] [place] [address] [id number] DIFFERENTIAL TYPEAUTOMATED DIFFERENTIALNormal The [facility] HospitalComment on above:Performed By: #### CBCA, BMP #### [facility] ([id number]) [address] [place] [address] 74383Eidbfryldzm (Bld) [#/Vol]0.1 10*3/uLNormal0.0-0.4ProMedica Madera Community HospitalComment on above:Performed By: #### CBCA, BMP #### [facility] ([id number]) [address] [place] [address] 41712HJAQXPOXFPT RELATIVE PERCENT BY AUTOMATED COUNT1.1 %Normal [facility] HospitalComhillsdale hospital on above:Performed By: #### CBCA, BMP #### [facility] ([id number]) [address] [place] [address] 22016Mjmofhalksr distribution width (RBC) [Ratio]13.2 %Cwhhuk60.5-15 The [facility] HospitalComment on above:Performed By: #### VALE, BMP #### [facility] ([id number]) [address] [place] [address] 16002Uggbgugbwe (Bld) [Volume fraction]42.4 %Pansqd51-09IscUdixxqMemorial Hermann Northeast HospitalComment on above:Performed By: #### CBCShakira, BMP #### [facility] ([id number]) [address] [place] [address] 51933Cvcsieoxvt (Bld) [Mass/Vol]14.5 g/lVUmkwud59.7-15.5PRiverside Methodist HospitalComment on above:Performed By: #### VALE, BMP #### [facility] ([id number]) [address] [place] [address] 72972RGTLJIAULWQ ABSOLUTE COUNT (10*3/UL) BY AUTOMATED COUNT2.1 10*3/uLNormal1.0-3.5PRiverside Methodist HospitalComment on above:Performed By: #### VALE, BMP #### [facility] ([id number]) [address] [place] [address] 74549KSTCDBOTKDK RELATIVE PERCENT BY AUTOMATED COUNT24.4 %Normal The [facility] HospitalComment on above:Performed By: #### CBCShakira, BMP #### [facility] ([id number]) [address] [place] [address] 47147WAO (RBC) [Entitic mass]29.6 brPaxpvn55-32LitXzgcesThe Bellevue HospitalComment on above:Performed By: #### CBCShakira, BMP #### [facility] ([id number]) [address] [place] [address] 25671FYXB (RBC) [Mass/Vol]34.2 g/vRHkjlsz71-35MvbWbprfc Concord HospitalComment on above:Performed By: #### CBCA, BMP #### [facility] ([id number]) [address] [place] [address] 75286DVM (RBC) [Entitic vol]87 mTSfrrfl04-631LfzPsoafy [facility]remont HospitalComhillsdale hospital on above:Performed By: #### CBCA, BMP #### [facility] ([id number]) [address] [place] [address] 11638JNXKSHKCM ABSOLUTE COUNT (10*3/UL) BY AUTOMATED COUNT0.4 10*3/uLNormal0.0-0.9[facility] on above:Performed By: #### CBCA, BMP #### [facility] ([id number]) [address] [place] [address] 99963XEJSZSZKH RELATIVE PERCENT BY AUTOMATED COUNT4.6 %Normal [facility] on above:Performed By: #### CBCA, BMP #### [facility] ([id number]) [address] [place] [address] 69838CINIGRTFPMY ABSOLUTE COUNT BY AUTOMATED COUNT5.9 10*3/uLNormal 1.5-6.6[facility] on above:Performed By: #### CBCA, BMP #### [facility] ([id number]) [address] [place] [address] 80555YZBKICSTDJR RELATIVE PERCENT BY AUTOMATED COUNT69.6 %Normal [facility] on above:Performed By: #### CBCA, BMP #### [facility] ([id number]) [address] [place] [address] 66410Kesjbgbr mean volume (Bld) [Entitic vol]8.1 fLNormal7-12 [facility] HospitalComhillsdale hospital on above:Performed By: #### CBCA, BMP #### [facility] ([id number]) [address] [place] [address] 45443Mfyhiyzlc (Bld) [#/Vol]320 10*3/aKOptfxe924-193EshYstodb [facility]remont HospitalComment on above:Performed By: #### VALE, BMP #### [facility] ([id number]) [address] [place] [address] 22243NTN COUNT4.90 X10E12/LNormal3.8-5.2PRiverside Methodist Hospital Comment on above:Performed By: #### VALE, BMP #### [facility] ([id number]) [address] [place] [address] 03978UZX (Bld) [#/Vol]8.5 10*3/uLNormal4-11ProMemorial Hermann Northeast HospitalComment on above:Performed By: #### VALE, BMP #### [facility] ([id number]) [address] [place] [address] 12738FJEJNBRHOVIOU METABOLIC PANELon 03-85-4049Mxscarx [Mass/Vol]4.0 g/dLNormal3.2-5.3PRiverside Methodist HospitalComment on above:Performed By: #### VALE, BMP #### [facility] ([id number]) [address] [place] [address] 64689BZM [Catalytic activity/Vol]81 U/LYwelab15-358OtoCnanjkMemorial Hermann Northeast HospitalComment on above:Performed By: #### VALE, BMP #### [facility] ([id number]) [address] [place] [address] 56637HSW [Catalytic activity/Vol]46 U/LHigh<=31PRiverside Methodist HospitalComment on above:Performed By: #### VALE, BMP #### [facility] ([id number]) [address] [place] [address] 82831Uoulx gap [Moles/Vol]6 mmol/LNormal5-15The [facility] HospitalComment on above:Performed By: #### VALE, BMP #### [facility] ([id number]) [address] [place] [address], [place] [address]RAN [Catalytic activity/Vol]30 U/LNormal<=41The [facility] HospitalComment on above:Performed By: #### VALE, BMP #### [facility] ([id number]) [address] [place] [address], [place] [address]Lvttuitee [Mass/Vol]0.9 mg/dLNormal0.3-1.2PRiverside Methodist HospitalComment on above:Performed By: #### VALE, BMP #### [facility] ([id number]) [address] [place] [address], [place] [address]Faxhbrm [Mass/Vol]8.9 mg/dLNormal8.5-10.5PRiverside Methodist HospitalComment on above:Performed By: #### VALE, BMP #### [facility] ([id number]) [address] [place] [address], [place] [address]Hhvhemsc [Moles/Vol]106 mmol/JYwcgyk21-471LiwKcikevThe Bellevue HospitalComment on above:Performed By: #### VALE, BMP #### [facility] ([id number]) [address] [place] [address], [place] [address]XW7 [Moles/Vol]23 mmol/SRipdvg14-27XbvGoriqoRiverside Methodist Hospital Comment on above:Performed By: #### VALE, BMP #### [facility] ([id number]) [address] [place] [address], [place] [address]Nuoinliupy [Mass/Vol]0.57 mg/dLNormal0.40-1.00The [facility] HospitalComment on above:Result Comment: METHOD TRACEABLE TO IDMS STANDARD Performed By: #### VALE, BMP #### [facility] ([id number]) [address] [place] [address] 47712HUUA (CKD-EPI) NON-RACE DEPENDENT>^90Normal>=60ProMemorial Hermann Northeast HospitalComment on above:Result Comment: eGFR not reported due to non- numeric value for Creatinine. EGFR not calculated due to patient's gender not being defined. Reported eGFR is based on the CKD-EPI 2020 equation that does not use a race coefficient.Performed By: #### VALE, BMP #### [facility] ([id number]) [address] [place] [address] 97261Jspcgvt [Mass/Vol]121 mg/wOXtmm89-94VgvJxytszMemorial Hermann Northeast Hospital Comment on above:Performed By: #### VALE, BMP #### [facility] ([id number]) [address] [place] [address] 21162Xpovctfoc [Moles/Vol]3.7 mmol/LNormal3.5-5.0ProMemorial Hermann Northeast HospitalComment on above:Performed By: #### VALE, BMP #### [facility] ([id number]) [address] [place] [address] 42844Aabpqtx [Mass/Vol]7.3 g/dLNormal6.0-8.0ProMemorial Hermann Northeast HospitalComment on above:Performed By: #### VALE, BMP #### [facility] ([id number]) [address] [place] [address] 21364Dmoxve [Moles/Vol]135 mmol/OChbybp267-983CryEmoxym [facility]remont HospitalComment on above:Performed By: #### VALE, BMP #### [facility] ([id number]) [address] [place] [address] 74653Xxve nitrogen [Mass/Vol]8 mg/dLNormal5-23ProMemorial Hermann Northeast HospitalComment on above:Performed By: #### VALE, BMP #### [facility] ([id number]) [address] [place] [address] [place] 76[address]CD ABDOMEN AND PELVIS WO CONTon 61-39-1524HB ABDOMEN AND PELVIS WO CONTCT ABDOMEN AND PELVIS WO CONT History: Kidney [...] by Jin Salas MD on 12/28/2024 4:14 PMNormalThe Bellevue HospitalPOCT NURSING URINE MACROSCOPIC UAon 17-14-0818ZBBEVUDDS NURNegative NormalNegAdena Fayette Medical CenterComment on above:Performed By: #### CBCA, BMP #### [facility] ([id number]) [address] [place] [address] 35468IAILK/HGB NURTraceAbnormalNegativeThe [facility] Comment on above:Performed By: #### CBCA, BMP #### [facility] ([id number]) [address] [place] [address] 70590QTPNXEH NURNegativeNormalNegativeThe [facility] Comment on above:Performed By: #### CBCA, BMP #### [facility] ([id number]) [address] [place] [address] 24990FNBCRAV NURNegativeNormalNegativeThe [facility] Comment on above:Performed By: #### CBCA, BMP #### [facility] ([id number]) [address] [place] [address] [place] [address]TQSPYCGNG ESTERASE NURTraceAbnormalNegativeThe [facility]vue HospitalComment on above:Performed By: #### CBCShakira, BMP #### [facility] ([id number]) [address] [place] [address] 33610OHCHTAU NURNegativeNormalNegativeThe [facility] Comment on above:Performed By: #### VALE, BMP #### [facility] ([id number]) [address] [place] [address] [place] [address]RS NUR7.0Htzogg5.0, 6.0, 6.5, 7.0, 7.5, 8.0, 8.5, 5.5Pro[facility] Madera Community HospitalComment on above:Performed By: #### VALE, BMP #### [facility] ([id number]) [address] [place] [address] 66385TVGYRPK NURNegativeNormalNegAdena [facility]ayette Medical Center Comment on above:Performed By: #### VALE, BMP #### [facility] ([id number]) [address] [place] [address] 50300FVFMYRLQ GRAVITY NUR1.316Ssemoi7.010, 1.015, 1.020, 1.025 [facility] Community HospitalComment on above:Performed By: #### CBCA, BMP #### [facility] ([id number]) [address] [place] [address] 55837EVVVIVPBAVZZ NUR1.0 E.U./dLNormKeenan Private Hospital Comment on above:Performed By: #### CBCA, BMP #### [facility] ([id number]) [address] [place] [address] 41167IVXJ , URINE (NUCG)on 30-57-2691Djqc HCG ( test) Ql (U)NegativeNormalNegative, IndeterminateProMedica Madera Community Hospital Comment on above:Performed By: #### CBCA, BMP #### [facility] ([id number]) [address] [facility], [place], [place] [address]Ntcoxstxv Auto (Bld) [#/Vol]Ordered By: Krishna Lott on 71-70-6030Kpvydybsv (Bld) [#/Vol]0.0 10 3/uL0.0-0.1FMercy Health St. Elizabeth Boardman HospitalBasophils/100 WBC Auto (Bld)Ordered By: Krishna Lott on 12-21-2024 Basophils/100 WBC (Bld)0.3 %0.2-2.0[facility] Eosinophils/100 WBC Auto (Bld)Ordered By: Krishna Lott on 12-21-2024 Eosinophils/100 WBC (Bld)1.4 %0.9-7.0[facility] Erythrocyte distribution width Auto (RBC) [Ratio]Ordered By: Krishna Lott on 93-17-8325Azhfskbdbpu distribution width (RBC) [Ratio]12.3 %11.0-15.0The [facility] HospitalGlobulin Calc (S) [Mass/Vol]Ordered By: Krishna Lott on 27-40-7905Bkrcfswi (S) [Mass/Vol]3.1 g/dLThe [facility] Hospital Glomerular filtration rate (GFR) estimation in non- AmericanOrdered By: Krishna Lott on 79-83-1937XMP/1.73 sq M.predicted among non-blacks MDRD (S/P/Bld) [Vol rate/Area]mL/min/{1.73_m2}>=60 mL/min/1.73m 2FMercy Health St. Elizabeth Boardman HospitalHematocrit Auto (Bld) [Volume fraction]Ordered By: Krishna Lott on 17-62-8250Tvfjbozgsx (Bld) [Volume fraction]41.1 %36.0-48.0The [facility] HospitalHemoglobin [Mass/volume] in BloodOrdered By: Krishna Lott on 30-56-2454Piokxlckkh (Bld) [Mass/Vol]14.0 g/dL12.0-16.0The [facility] HospitalLaboratory - Chemistry and Chemistry - challengeOrdered By: Krishna Lott on 03-23-7791Mkebvop [Mass/Vol]3.3 g/dLLow3.4-5.0The [facility] HospitalALP [Catalytic activity/Vol]86 U/X63-746DqdbbqmvqThe [facility]vue HospitalALT [Catalytic activity/Vol]51 U/L56-27EbuwwtrycThe [facility]vue HospitalAST [Catalytic activity/Vol]19 U/P35-57MrbelfnswThe Bellevue HospitalBilirubin [Mass/Vol]0.7 mg/dL0.2-1.0[facility] Calcium [Mass/Vol]8.7 mg/dL8.5-10.1FMercy Health St. Elizabeth Boardman HospitalChloride [Moles/Vol]103 mmol/E57-169XoopnypbbThe Bellevue HospitalCO2 [Moles/Vol]29.3 mmol/L21.0-32.0The [facility] HospitalCreatinine [Mass/Vol]0.57 mg/dL 0.55-1.02The [facility] HospitalGFR/1.73 sq M.predicted MDRD (S/P/Bld) [Vol rate/Area]mL/min/{1.73_m2}>=60 mL/min/1.73m 2FMercy Health St. Elizabeth Boardman HospitalGlucose [Mass/Vol]91 mg/cG41-573GhwprnbhgThe Bellevue HospitalPotassium [Moles/Vol]4.3 mmol/L3.5-5.1FMercy Health St. Elizabeth Boardman HospitalProtein [Mass/Vol] 6.4 g/dL6.4-8.2FFlower Hospitalodium [Moles/Vol]139 mmol/L 136-145The [facility] HospitalUrea nitrogen [Mass/Vol]8.0 mg/dL 7.0-18.0The [facility] HospitalUrea nitrogen/Creatinine [Mass ratio] 14.0 mg/mgThe Bellevue HospitalLaboratory - Hematology and Cell countsOrdered By: Krishna Lott on 65-33-2313Tozpapcv granulocytes/100 WBC (Bld) 0.4 %0.0-0.5FMercy Health St. Elizabeth Boardman HospitalLeukocytes [#/volume] corrected for nucleated erythrocytes in Blood by Automated counOrdered By: Krishna Lott on 69-70-1459SXT corrected for nucl RBC Auto (Bld) [#/Vol]9.7 10 3/uL4.0-11.0 The [facility] HospitalLymphocytes Auto (Bld) [#/Vol]Ordered By: Krishna Lott on 53-61-8445Aqzkwthymly (Bld) [#/Vol]2.7 10 3/uL1.2-3.8The [facility] HospitalLymphocytes/100 WBC Auto (Bld)Ordered By: Krishna Lott on 40-18-7513Seqyjcawmer/100 WBC (Bld)27.6 %20.5-60.0[facility] Auto (RBC) [Entitic mass]Ordered By: Krishna Lott on 30-82-8631VZF (RBC) [Entitic mass]30.5 pg26.7-34.0The [facility] HospitalMCHC Auto (RBC) [Mass/Vol]Ordered By: Krishna Lott on 20-13-6245EVDS (RBC) [Mass/Vol]34.1 g/dL29.9-35.2FMercy Health St. Elizabeth Boardman HospitalMCV Auto (RBC) [Entitic vol] Ordered By: Krishna Lott on 58-33-9069UYE (RBC) [Entitic vol]89.5 fL81.0-99.0 The [facility] HospitalMonocytes Auto (Bld) [#/Vol]Ordered By: Krishna Lott on 51-95-6258Eakvyvias (Bld) [#/Vol]0.5 10 3/uL0.3-0.8The [facility] HospitalMonocytes/100 WBC Auto (Bld)Ordered By: Krishna Lott on 84-22-5079Yhromqplh/100 WBC (Bld)5.1 %1.7-12.0[facility] Neutrophils Auto (Bld) [#/Vol]Ordered By: Krishna Lott on 53-31-7182Hiarvdywean (Bld) [#/Vol]6.3 10 3/uL1.4-6.5FMercy Health St. Elizabeth Boardman HospitalNeutrophils/100 WBC Auto (Bld)Ordered By: Krishna Lott on 64-81-1956Wrcwtfusylw/100 WBC (Bld) 65.2 %43.0-75.0The [facility] HospitalNo Panel InformationOrdered By: Krishna Lott on 48-22-2505Ztipogideyf # (Auto)0.1 10 3/uL0.0-0.7FMercy Health St. Elizabeth Boardman HospitalImmature Granulocyte # (Auto)0.04 10 3/uLHigh0.00-0.03 The [facility] HospitalPlatelet mean volume Auto (Bld) [Entitic vol] Ordered By: Krishna Lott on 67-72-1324Vmlgmatl mean volume (Bld) [Entitic vol] 9.5 fL9.5-13.5FMercy Health St. Elizabeth Boardman HospitalPlatelets Auto (Bld) [#/Vol] Ordered By: Krishna Lott on 18-73-7154Srwzejnbt (Bld) [#/Vol]343 10 3/fD170-499 The [facility] HospitalRBC Auto (Bld) [#/Vol]Ordered By: Krishna Lott on 52-39-6685WXI (Bld) [#/Vol]4.59 10 6/uL4.20-5.40Kettering Healtherum or plasma albumin/globulin mass ratioOrdered By: Krishna Lott on 21-50-3528Nmwpprc/Globulin [Mass ratio]1.1 {ratio}[facility]tering Healtherum or plasma anion gap determinationOrdered By: Krishna Lott on 44-34-3583Dtfdr gap [Moles/Vol]11.0 mmol/LFMercy Health St. Elizabeth Boardman Hospital Laboratory - Chemistry and Chemistry - challengeOrdered By: Krishna Lott on 67-39-5142Raypwujzg Ql (U)NegativeNEGATIVEThe [facility] Hospital Glucose (U) [Mass/Vol]NegativeNEGATIVEThe Bellevue HospitalKetones Ql (U)NegativeNEGATIVEThe Bellevue HospitalpH (U)6.5 [pH]5.0-9.0 Kettering Healthpecific gravity (U) [Rel density]1.010 1.005-1.025The [facility] HospitalUrobilinogen Qn (U)0.2 {Melissa'U}/dL0.2-1.0The [facility] HospitalLaboratory - Specimen informationOrdered By: Krishna Lott on 20-10-2661Tvqjbpbhvs (U)CLEARCLEAR The [facility] HospitalColor (U)LT. YELLOWYELLOWThe Bellevue HospitalLaboratory - UrinalysisOrdered By: Krishna Lott on 12-07-2024 Leukocyte esterase Test strip Ql (U)SMALLAbnormalNEGSelect Medical Specialty Hospital - Cincinnati NorthMucus Ql (Urine sed)NONE SEENNONE SEENThe [facility]vue HospitalNitrite Ql (U)NegativeNEGATIVEThe [facility] HospitalProtein Ql (U)NegativeNEG/TRACEThe [facility]vue HospitalNo Panel InformationOrdered By: Krishna Lott on 74-97-0623Brugm BacteriaTRACE #/HPFAbnormalNONE SEEN The [facility] HospitalUrine Occult BloodMODERATEAbnormalNEGATIVE The [facility] HospitalUrine Other CastsNONE SEEN #/LPFNONE SEEN [facility] HospitalUrine Other CrystalsNone Seen #/HPFNone Seen The [facility] HospitalUrine RBC2-5 #/HPFAbnormal0-2FMercy Health St. Elizabeth Boardman HospitalUrine Squamous Epithelial CellsMODERATE #/LPFAbnormalNONE/RARE The [facility] HospitalUrine WBC0-2 #/HPFAbnormalNONE SEENThe Bellevue HospitalUrine Cultureon 13-42-2177Qoqihrlp identified Cx Nom (U) 50,000 colonies/ml mixed bacterial skin contaminants 2 Days PERFORMED BY: [place] [address] PATHOLOGIST [employer] ERIC BRANDT M.D.NormalThe [facility] Hospital Physician GroupComment on above: Performed By: #### CUU #### [facility] [address] [place] [address] USAALL CBC WITH AUTO DIFFon 76-41-4165AAPKBIJIO ABSOLUTE AUTO 0NOMS HealthcareBasophils/100 WBC (Bld)0.4 %0.2 - 2.0 %[facility] Eosinophils/100 WBC (Bld)2.4 %0.9 - 7.0 %NOMS HealthcareErythrocyte distribution width (RBC) [Ratio]12.4 %11.0 - 15.0 %NOMS HealthcareHematocrit (Bld) [Volume fraction]40.5 %36.0 - 48.0 %[facility] HospitalHemoglobin (Bld) [Mass/Vol]13.7 g/dL 12.0 - 16.0 g/dLOzarks Community HospitalIMMATURE GRANULOCYTES ABS AUTO0.02NOReynolds County General Memorial Hospital Immature granulocytes/100 WBC (Bld)0.4 %0.0 - 0.5 %[facility] HospitalInterpretation and review of laboratory resultsAbnormalOzarks Community HospitalLYMPHOCYTES ABSOLUTE AUTO1.8NOReynolds County General Memorial HospitalLymphocytes/100 WBC (Bld)39.6 %20.5 - 60.0 %[facility] HospitalH (RBC) [Entitic mass]30.4 pg26.7 - 34.0 pgRipley County Memorial HospitalHC (RBC) [Mass/Vol]33.8 g/dL29.9 - 35.2 g/dLRipley County Memorial HospitalV (RBC) [Entitic vol]90 fL 81.0 - 99.0 fLOzarks Community HospitalMONOCYTES ABSOLUTE AUTO0.4[facility] Monocytes/100 WBC (Bld)8 %1.7 - 12.0 %[facility] HospitalNEUTROPHILS ABSOLUTE AUTO 2.3NOMS Mckitrick HospitalNeutrophils/100 WBC (Bld)49.2 %43.0 - 75.0 %[facility] Platelet mean volume (Bld) [Entitic vol]9.4 fLLow9.5 - 13.5 fLOzarks Community HospitalTBH EO #0.1NOMS Mckitrick HospitalTB CMA937SZOT [facility] RBC4.5[facility] WBC 4.6NOReynolds County General Memorial HospitalCLINISYNCNSaint Mary's Health CenterBasophils Auto (Bld) [#/Vol]on 23-02-1374Wqeyvqkpx (Bld) [#/Vol]Automated basophil count0.0-0.1FMercy Health St. Elizabeth Boardman HospitalBasophils/100 WBC Auto (Bld)on 87-71-7751Cpzgkxzkf/100 WBC (Bld)Automated basophil %0.2-2.0[facility] Eosinophils/100 WBC Auto (Bld)on 95-84-5778Dcrluudfvap/100 WBC (Bld)Automated eosinophil %0.9-7.0The [facility] HospitalErythrocyte distribution width Auto (RBC) [Ratio]on 58-72-8300Jxtqhsliswj distribution width (RBC) [Ratio]Erythrocyte distribution width [Ratio] by Automated count11.0-15.0 [facility] HospitalEstimated glomerular filtration rate (GFR) non- Americanon 66-30-6519IYY/1.73 sq M.predicted among non-blacks MDRD (S/P/Bld) [Vol rate/Area]Estimated glomerular filtration rate (GFR) non->=60 mL/min/1.73m 2FMercy Health St. Elizabeth Boardman HospitalGlobulin Calc (S) [Mass/Vol]on 08-31-4875Clqijhdt (S) [Mass/Vol]Serum globulin measurement by calculation (mass/volume)The [facility] HospitalHematocrit Auto (Bld) [Volume fraction]on 29-35-4145Riwzrigkie (Bld) [Volume fraction]Hematocrit [Volume Fraction] of Blood by Automated count36.0-48.0The [facility] HospitalHemoglobin [Mass/volume] in Bloodon 90-50-9771Gezaoyunwe (Bld) [Mass/Vol] Hemoglobin [Mass/volume] in Blood12.0-16.0[facility] Laboratory - Chemistry and Chemistry - challengeon 28-65-2959Bmkaqtt [Mass/Vol] 3.7 g/dL3.4-5.0[facility] HospitalALP [Catalytic activity/Vol]78 U/N13-803ClyewivfhThe Bellevue HospitalALT [Catalytic activity/Vol]33 U/L 14-59The [facility] HospitalAST [Catalytic activity/Vol]17 U/L15-37 [facility] HospitalBilirubin [Mass/Vol]0.5 mg/dL0.2-1.0[facility] HospitalCalcium [Mass/Vol]9.1 mg/dL8.5-10.1FMercy Health St. Elizabeth Boardman HospitalChloride [Moles/Vol]105 mmol/K90-927JvdszhdfmThe Bellevue HospitalCO2 [Moles/Vol]27.4 mmol/L21.0-32.0[facility] Creatinine [Mass/Vol]0.76 mg/dL0.55-1.02[facility] GFR/1.73 sq M.predicted MDRD (S/P/Bld) [Vol rate/Area]mL/min/{1.73_m2}>=60 mL/min/1.73m 2FMercy Health St[address] Elizabeth Board[facility] HospitalGlucose [Mass/Vol]79 mg/dA83-225 [facility] HospitalPotassium [Moles/Vol]4.1 mmol/L3.5-5.1FMercy Health St. [facility] HospitalProtein [Mass/Vol]6.7 g/dL6.4-8.2FFlower Hospitalodium [Moles/Vol]141 mmol/C673-607WfqwhgecdThe [facility] HospitalUrea nitrogen [Mass/Vol]8.0 mg/dL7.0-18.0[facility] Urea nitrogen/Creatinine [Mass ratio]10.5 mg/mgThe [facility] Laboratory - Hematology and Cell countson 90-47-3111Zztbxbdx granulocytes/100 WBC (Bld)0.2 %0.0-0.5FMercy Health St. Elizabeth Board[facility] HospitalLeukocytes [#/volume] corrected for nucleated erythrocytes in Blood by Automated counon 72-28-8362OZH corrected for nucl RBC Auto (Bld) [#/Vol]Leukocytes [#/volume] corrected for nucleated erythrocytes in Blood by Automated coun4.0-11.0[facility] HospitalLymphocytes Auto (Bld) [#/Vol]on 07-97-6361Utjkxdhmzqu (Bld) [#/Vol]Lymphocytes [#/volume] in Blood by Automated count1.2-3.8[facility] HospitalLymphocytes/100 WBC Auto (Bld)on 08-08-2024 Lymphocytes/100 WBC (Bld)Lymphocytes/100 leukocytes in Blood by Automated count 20.5-60.0[facility] HospitalMCH Auto (RBC) [Entitic mass]on 21-56-3661CBK (RBC) [Entitic mass]MCH [Entitic mass] by Automated count26.7-34.0 [facility] HospitalMCHC Auto (RBC) [Mass/Vol]on 98-16-1271IQDF (RBC) [Mass/Vol]MCHC [Mass/volume] by Automated count29.9-35.2FMercy Health St. Elizabeth Board[facility] HospitalMCV Auto (RBC) [Entitic vol]on 31-45-8082GDS (RBC) [Entitic vol] MCV [Entitic volume] by Automated count81.0-99.0[facility] HospitalMonocytes Auto (Bld) [#/Vol]on 67-14-6826Optkllykv (Bld) [#/Vol]Automated blood monocyte count0.3-0.8[facility] HospitalMonocytes/100 WBC Auto (Bld)on 93-87-0531Ixolbdceg/100 WBC (Bld)Automated monocyte %1.7-12.0 [facility] HospitalNeutrophils Auto (Bld) [#/Vol]on 08-08-2024 Neutrophils (Bld) [#/Vol]Neutrophils [#/volume] in Blood by Automated count 1.4-6.5FMercy Health St. [facility] Board[facility] HospitalNeutrophils/100 WBC Auto (Bld)on 80-18-4627Hbqhcmlabgo/100 WBC (Bld)Automated neutrophil %43.0-75.0[facility] HospitalNo Panel Informationon 49-88-8478Sytigmvtfpn # (Auto)0.1 10 3/uL0.0-0.7FMercy Health St. Elizabeth Board[facility] HospitalImmature Granulocyte # (Auto)0.01 10 3/uL0.00-0.03[facility] HospitalPlatelet mean volume Auto (Bld) [Entitic vol]on 69-88-8814Vfuosgsv mean volume (Bld) [Entitic vol]Platelet mean volume [Entitic volume] in Blood by Automated count9.5-13.5FMercy Health St. Elizabeth Board[facility] HospitalPlatelets Auto (Bld) [#/Vol]on 69-04-7823Wnyxidivy (Bld) [#/Vol]Platelets [#/volume] in Blood by Automated tcowt800-716PngpkiqflThe Bellevue HospitalRBC Auto (Bld) [#/Vol]on 67-93-3227OYS (Bld) [#/Vol]Erythrocytes [#/volume] in Blood by Automated count4.20-5.40[facility] Serum or plasma albumin/globulin mass ratioon 28-24-0835Nnyvbau/Globulin [Mass ratio]Serum or plasma albumin/globulin mass ratioKettering Healtherum or plasma anion gap determinationon 75-76-8885Dyrep gap [Moles/Vol] Serum or plasma anion gap determinationThe Bellevue HospitalUrine Cultureon 38-56-4232Fetwxdtf identified Cx Nom (U)Urine Culture Results 30,000 colonies/ml Mixed Bacterial Skin Contaminants 2 Days ORGANISM: Kamini albicans (O:CANALB) [place] Count <10,000 PERFORMED BY: [facility] [address] [place] [address] PATHOLOGIST [employer] JAVIER HUIZAR M.D.NormalThe High[facility] Hospital Physician GroupComment on above: Performed By: #### CUU #### [facility] [address] [id number] USAUS Pelvis transvaginalon 12-29-8845IOPN: US PELVIS TRANSVAGINAL HISTORY: Unable to see [...] homogeneous echotexture. The IUD is limited in visualizationdue to uterine position; however, appears appropriate in [...] the left ovary was not visualized. Electronically Signed:Electronically signed by NOMI MENDOZA II, MD, PHD at 28-Jul-2024 08:45:45 AM [facility] Nomi - 07/28/2024 EXAM: US PELVIS TRANSVAGINAL HISTORY: [...] homogeneous echotexture. The IUD is limited in visualizationdue to uterine position; however, appears appropriate in [...] the left ovary was not visualized. Electronically Signed:Electronically signed by NOMI MENDOZA II, MD, PHD at 28-Jul-2024 08:45:45 AM [facility] HealthcareUS Pelvis transvaginalOrdered By: Nomi Mendoza on [id number] Community Hospital Work Phone: IUD Removalon [phone] Almanza LPN 08/08/2024 11:15 AM IUD Removal Date/Time: 07/26/2024 2:33 PM Performed by: Jeremy Olmstead DO Authorized by: Jeremy Olmstead DO Consent: Consent obtained: Written Consent given by: Patient Procedure risks and benefits discussed: yes Patient questions answered: yes Patient agrees, verbalizes understanding, and wants to proceed: yes Educational handouts given: yes Instructions and paperwork completed: yes Mandan protocol: Patient states understanding of procedure being [...] pelvic ultrasound. KUB ordered to view for [facility] AmericaUS PELVIS TRANSVAGINALon 47-81-7355JY PELVIS TRANSVAGINALEXAM: US PELVIS TRANSVAGINAL HISTORY: Unable to see [...] homogeneous echotexture. The IUD is limited in visualizationdue to uterine position; however, appears appropriate in [...] the left ovary was not visualized. Electronically Signed:Electronically signed by NOMI MENDOZA II, MD, PHD at 28-Jul-2024 08:45:45 AM [facility] TeleradiologyNormalNot AvailableComment on above:Order Comment: US PELVIS TRANSVAGINAL No LMP recorded. (Menstrual status: No Periods). 223 lb 1.9 ozUS Pelvis transvaginalon 92-49-2716Gnbglkhsa Study observation (narrative)[facility] CBC AND AUTO DIFFon 72-72-2882Zwdshnoleqd distribution width (RBC) [Ratio]12.4 % Hqeacq68.5-15.0ProMemorial Hermann Northeast HospitalComment on above:Performed By: #### CBCA, BMP #### [facility] ([id number]) [address] [place] [address], FIRST [place], [place] [address]Bftweqecmp (Bld) [Volume fraction]43.3 %Mjgvue68-28RasDjgceyMemorial Hermann Northeast HospitalComment on above:Performed By: #### CBCA, BMP #### [facility] ([id number]) [address] [place] [address] 58247Hwqthngsxc (Bld) [Mass/Vol]14.5 g/tRXlemii20.7-15.5PRiverside Methodist HospitalComment on above:Performed By: #### CBCA, BMP #### [facility] ([id number]) [address] [place] [address] 61889Gbdqvtagaxr (Bld) [#/Vol]4.7 10*3/uLHigh1.0-3.5PRiverside Methodist HospitalComment on above:Performed By: #### CBCA, BMP #### [facility] ([id number]) [address] [place] [address] 54849Cgnfdaiimml/100 WBC (Bld)33.0 %NormalProMemorial Hermann Northeast Hospital Comment on above:Performed By: #### CBCA, BMP #### [facility] ([id number]) [address] [place] [address] 44130XWK (RBC) [Entitic mass]29.8 usGnlctp20-52NqeDruzusThe Bellevue HospitalComment on above:Performed By: #### CBCA, BMP #### [facility] ([id number]) [address] [place] [address] 19412SUXH (RBC) [Mass/Vol]33.5 g/mYFzhhnw51-72HrkRehxwwMemorial Hermann Northeast HospitalComment on above:Performed By: #### CBCA, BMP #### [facility] ([id number]) [address] [place] [address] 55310GWX (RBC) [Entitic vol]89 xSGduuih00-597GkcRxpvvd Fremont HospitalComment on above:Performed By: #### CBCA, BMP #### [facility] ([id number]) [address] [place] [address] 19668Twtliokep (Bld) [#/Vol]0.7 10*3/uLNormal0-0.9The Bellevue HospitalComment on above:Performed By: #### VALE, BMP #### [facility] ([id number]) [address] [place] [address] 58524Ifdazktwi/100 WBC (Bld)5.0 %NormalProMemorial Hermann Northeast Hospital Comment on above:Performed By: #### VALE, BMP #### [facility] ([id number]) [address] [place] [address] 36060Xkweempurgu (Bld) [#/Vol]8.8 10*3/uLHigh1.5-6.6The Bellevue HospitalComment on above:Performed By: #### VALE, BMP #### [facility] ([id number]) [address] [place] [address] 57078Ztinpmwu mean volume (Bld) [Entitic vol]7.8 fLNormal7-12 The Bellevue HospitalComment on above:Performed By: #### VALE, BMP #### [facility] ([id number]) [address] [place] [address] 60240Uldekeoou (Bld) [#/Vol]374 10*3/cZRaiocy078-556KfoDtbkus [facility]ont HospitalComment on above:Performed By: #### CBCShakira, BMP #### [facility] ([id number]) [address] [place] [address] 77621WGU COUNT4.86 X10E12/LNormal3.80-5.20The [facility] Comment on above:Performed By: #### CBCA, BMP #### [facility] ([id number]) [address] [place] [address] 36482VFV morphology finding Nom (Bld)NORMALNormalProMedica Concord HospitalComment on above:Performed By: #### VALE, BMP #### [facility] ([id number]) [address] [place] [address] 53522RDB MXEUIARPGS25.0 %NormalProMemorial Hermann Northeast HospitalComment on above:Performed By: #### VALE, BMP #### [facility] ([id number]) [address] [place] [address] 17444BFU (Bld) [#/Vol]14.2 10*3/uLHigh4.0-11.0ProMemorial Hermann Northeast HospitalComment on above:Performed By: #### VALE, BMP #### [facility] ([id number]) [address] [place] [address] 16808HVIDLFZCXKDRM METABOLIC PANELon 85-73-0837Ammtptj [Mass/Vol]4.0 g/dLNormal3.2-5.3ProMedEastern Plumas District HospitalComment on above:Performed By: #### VALE, BMP #### [facility] ([id number]) [address] [place] [address] 03116RFJ [Catalytic activity/Vol]55 U/GQypoyq30-644HzaZstjgjThe Bellevue HospitalComment on above:Performed By: #### VALE, BMP #### [facility] ([id number]) [address] [place] [address] 13780ZQL [Catalytic activity/Vol]132 U/LHigh0-31PRiverside Methodist HospitalComment on above:Performed By: #### VALE, BMP #### [facility] ([id number]) [address] [place] [address] 20433Ayvuz gap [Moles/Vol]6 mmol/LNormal5-15ProMemorial Hermann Northeast HospitalComment on above:Performed By: #### VALE, BMP #### [facility] ([id number]) [address] [place] [address] 65561TQK [Catalytic activity/Vol]33 U/LNormal0-41The Bellevue HospitalComment on above:Performed By: #### VALE, BMP #### [facility] ([id number]) [address] [place] [address], [place] [address]Prnkukvce [Mass/Vol]0.8 mg/dLNormal0.3-1.2PRiverside Methodist HospitalComment on above:Performed By: #### VALE, BMP #### [facility] ([id number]) [address] [place] [address], [place] [address]Efwukoe [Mass/Vol]8.4 mg/dLLow8.5-10.5PRiverside Methodist HospitalComment on above:Performed By: #### VALE, BMP #### [facility] ([id number]) [address] [place] [address], [place] [address]Qeugfmkh [Moles/Vol]104 mmol/GAqyuvw18-385FhoIpqgewMemorial Hermann Northeast HospitalComment on above:Performed By: #### VALE, BMP #### [facility] ([id number]) [address] [place] [address], [place] [address]GX1 [Moles/Vol]23 mmol/XNekaeh34-90PrhAmhxbgRiverside Methodist Hospital Comment on above:Performed By: #### VALE, BMP #### [facility] ([id number]) [address] [place] [address] 52071Tlpstwggtt [Mass/Vol]0.69 mg/dLNormal0.40-1.00ProMemorial Hermann Northeast HospitalComment on above:Result Comment: METHOD TRACEABLE TO IDMS STANDARD Performed By: #### AVLE, BMP #### [facility] ([id number]) [address] [place] [address] 87071oCMI (CKD-EPI) NON-RACE DEPENDENT>90Normal>59ProMemorial Hermann Northeast HospitalComment on above:Result Comment: Reported eGFR is based on the CKD-EPI 2020 equation that does not use a race coefficient.Performed By: #### VALE, BMP #### [facility] ([id number]) [address] [place] [address] 52196Fenstvi [Mass/Vol]92 mg/cUEhjnqq64-71EbrAlfnaoThe [facility] Hospital Comment on above:Performed By: #### VALE, BMP #### [facility] ([id number]) [address] [place] [address] 98258Mxebtxups [Moles/Vol]4.0 mmol/LNormal3.5-5.0ProMemorial Hermann Northeast HospitalComment on above:Performed By: #### VALE, BMP #### [facility] ([id number]) [address] [place] [address] 49554Nlhpqye [Mass/Vol]6.8 g/dLNormal6.0-8.0ProMemorial Hermann Northeast HospitalComment on above:Performed By: #### VALE, BMP #### [facility] ([id number]) [address] [place] [address] 89860Ucgduy [Moles/Vol]133 mmol/TJvh503-627NhmOtzpmzMemorial Hermann Northeast HospitalComment on above:Performed By: #### VALE, BMP #### [facility] ([id number]) [address] [place] [address] 09940Nflt nitrogen [Mass/Vol]15 mg/dLNormal5-23ProMemorial Hermann Northeast HospitalComment on above:Performed By: #### VALE, BMP #### [facility] ([id number]) [address] [place] [address] 03922ZJ NECK SOFT TISSUE W CONTon 81-20-1726WE NECK SOFT TISSUE W CONTCT NECK SOFT TISSUE W CONT EXAM: CT [...] by Kam Barkley MD on 06/30/2024 11:48 AMNormalProMedica Madera Community Hospital CBC AND AUTO DIFFon 20-58-7351POTWIPEP BASOPHIL0.0 X10E9/LNormal0.0-0.2ProMedica Madera Community HospitalComment on above:Performed By: #### CBCA, BMP #### [facility] ([id number]) [address] [place] [address], [place], [place] [address]PZYOUJSL NEUTROPHIL9.4 X10E9/LHigh1.5-6.6The Bellevue HospitalComment on above:Performed By: #### CBCA, BMP #### [facility] ([id number]) [address] [place] [address] 10392Yxesslnio/100 WBC (Bld)0.3 %NormalThe [facility] Hospital Comment on above:Performed By: #### CBCA, BMP #### [facility] ([id number]) [address] [place] [address] 97777Jxiipedslqi (Bld) [#/Vol]0.0 10*3/uLNormal0.0-0.4The Bellevue HospitalComment on above:Performed By: #### CBCA, BMP #### [facility] ([id number]) [address] [place] [address] 17297Mqbivjepywr/100 WBC (Bld)0.0 %[facility] Comment on above:Performed By: #### CBCA, BMP #### [facility] ([id number]) [address] [place] [address] 43170Rqqooonxper distribution width (RBC) [Ratio]12.6 %Normal 11.5-15.0The Bellevue HospitalComment on above:Performed By: #### CBCA, BMP #### [facility] ([id number]) [address] [place] [address] 76225Yhdxehdgfj (Bld) [Volume fraction]39.6 %Ytbazd11-98MhjRujwglMemorial Hermann Northeast HospitalComment on above:Performed By: #### CBCA, BMP #### [facility] ([id number]) [address] [place] [address] 31772Tkmagqhxex (Bld) [Mass/Vol]13.3 g/eHBhgjjo59.7-15.5PRiverside Methodist HospitalComment on above:Performed By: #### CBCA, BMP #### [facility] ([id number]) [address] [place] [address] 76107Tibyohwmqmq (Bld) [#/Vol]1.9 10*3/uLNormal1.0-3.5PRiverside Methodist HospitalComment on above:Performed By: #### CBCA, BMP #### [facility] ([id number]) [address] [place] [address] 63184Fyzueqeijuv/100 WBC (Bld)16.4 %NormalProMemorial Hermann Northeast Hospital Comment on above:Performed By: #### CBCA, BMP #### [facility] ([id number]) [address] [place] [address] 15483GDU (RBC) [Entitic mass]29.8 iaTwiwxp10-25CiyLskksiMemorial Hermann Northeast HospitalComment on above:Performed By: #### CBCA, BMP #### [facility] ([id number]) [address] [place] [address] 59174VCLB (RBC) [Mass/Vol]33.6 g/zHByzxex17-62GlcVvskxoMemorial Hermann Northeast HospitalComment on above:Performed By: #### CBCA, BMP #### [facility] ([id number]) [address] [place] [address] 87005MAK (RBC) [Entitic vol]89 aKXbigzl85-476AlhJhtxbo [facility]ont HospitalComment on above:Performed By: #### CBCA, BMP #### [facility] ([id number]) [address] [place] [address] 82915Gyegfondb (Bld) [#/Vol]0.4 10*3/uLNormal0-0.9The [facility]vue HospitalComment on above:Performed By: #### CBCA, BMP #### [facility] ([id number]) [address] [place] [address] 03528Hhhmvkyli/100 WBC (Bld)3.5 %[facility] Comment on above:Performed By: #### CBCShakira, BMP #### [facility] ([id number]) [address] [place] [address] 46328Raehfgxzrqa/100 WBC (Bld)79.8 %[facility] Comment on above:Performed By: #### CBCShakira, BMP #### [facility] ([id number]) [address] [place] [address] 85296Nzuqgmza mean volume (Bld) [Entitic vol]8.0 fLNormal7-12 ProMedicAurora Las Encinas HospitalComment on above:Performed By: #### CBCShakira, BMP #### [facility] ([id number]) [address] [place] [address] 42469Zllczfvux (Bld) [#/Vol]342 10*3/eQCjjilb503-433NwnLnuxyb [facility] HospitalComment on above:Performed By: #### CBCShakira, BMP #### [facility] ([id number]) [address] [place] [address] 93838ODL COUNT4.47 X10E12/LNormal3.80-5.20[facility] Comment on above:Performed By: #### CBCA, BMP #### [facility] ([id number]) [address] [place] [address] 93297VLU (Bld) [#/Vol]11.8 10*3/uLHigh4.0-11.0The [facility]vue HospitalComment on above:Performed By: #### CBCA, BMP #### [facility] ([id number]) [address] [place] [address] 24305ABOBVAPBIJTCF METABOLIC PANELon 62-71-3402Msxkvst [Mass/Vol]3.9 g/dLNormal3.2-5.3PRiverside Methodist HospitalComment on above:Performed By: #### VALE, BMP #### [facility] ([id number]) [address] [place] [address], [place] [address]JHT [Catalytic activity/Vol]59 U/OXjpjrf35-509TmpKmagjbMemorial Hermann Northeast HospitalComment on above:Performed By: #### VALE, BMP #### [facility] ([id number]) [address] [place] [address], [place] [address]LIT [Catalytic activity/Vol]58 U/LHigh0-31ProMedEastern Plumas District HospitalComment on above:Performed By: #### VALE, BMP #### [facility] ([id number]) [address] [place] [address], [place] [address]Rrvty gap [Moles/Vol]10 mmol/LNormal5-15ProMemorial Hermann Northeast HospitalComment on above:Performed By: #### VALE, BMP #### [facility] ([id number]) [address] [place] [address], [place] [address]EJF [Catalytic activity/Vol]32 U/LNormal0-41ProMemorial Hermann Northeast HospitalComment on above:Performed By: #### VALE, BMP #### [facility] ([id number]) [address] [place] [address], [place] [address]Upzinzkri [Mass/Vol]0.7 mg/dLNormal0.3-1.2PRiverside Methodist HospitalComment on above:Performed By: #### VALE, BMP #### [facility] ([id number]) [address] [place] [address], [place] [address]Wfvljwl [Mass/Vol]8.9 mg/dLNormal8.5-10.5PRiverside Methodist HospitalComment on above:Performed By: #### VALE, BMP #### [facility] ([id number]) [address] [place] [address], [place] [address]Qfpdtfdo [Moles/Vol]103 mmol/JOtmqsj51-101WwzInonyn Concord HospitalComment on above:Performed By: #### VALE BMP #### [facility] ([id number]) [address] [place] [address] 31439QG1 [Moles/Vol]22 mmol/TJzfmsc91-19KgwHwblxlRiverside Methodist Hospital Comment on above:Performed By: #### VALE, BMP #### [facility] ([id number]) [address] [place] [address] 00219Pcvlkyarao [Mass/Vol]0.59 mg/dLNormal0.40-1.00The [facility]vue HospitalComment on above:Result Comment: METHOD TRACEABLE TO IDMS STANDARD Performed By: #### VALE BMP #### [facility] ([id number]) [address] [place] [address] 18245sCXE (CKD-EPI) NON-RACE DEPENDENT>90Normal>59ProMemorial Hermann Northeast HospitalComment on above:Result Comment: Reported eGFR is based on the CKD-EPI 1 equation that does not use a race coefficient.Performed By: #### CAMRON COLLAZO #### [facility] ([id number]) [address] [place] [address] 66823Aqvovru [Mass/Vol]132 mg/bKQeqm33-06FagPbwtwuThe [facility] Comment on above:Performed By: #### VALE BMP #### [facility] ([id number]) [address] [place] [address] 33128Ffqnekfyl [Moles/Vol]4.0 mmol/LNormal3.5-5.0The [facility]vue HospitalComment on above:Performed By: #### VALE, BMP #### [facility] ([id number]) [address] [place] [address] 52498Nujfgbk [Mass/Vol]6.7 g/dLNormal6.0-8.0The [facility]vue HospitalComment on above:Performed By: #### VALE, BMP #### [facility] ([id number]) [address] [place] [address] 60840Msojwr [Moles/Vol]135 mmol/MMfcifs522-668MpnAbpvqb [facility] HospitalComment on above:Performed By: #### VALE, BMP #### [facility] ([id number]) [address] [place] [address] 89826Hahz nitrogen [Mass/Vol]15 mg/dLNormal5-23ProMemorial Hermann Northeast HospitalComment on above:Performed By: #### VALE, BMP #### [facility] ([id number]) [address] [place] [address] 27755SMWLWWPWAup 67-88-7810Mkxuieybs [Mass/Vol]2.3 mg/dLNormal 1.8-2.6ProMemorial Hermann Northeast HospitalComment on above:Performed By: #### CBCShakira, BMP #### [facility] ([id number]) [address] [place] [address] 63700GWY AND AUTO DIFFon 22-58-5099JSNVBCJP BASOPHIL0.1 X10E9/L Normal0.0-0.2ProMedEastern Plumas District HospitalComment on above:Performed By: #### CBCShakira, BMP #### [facility] ([id number]) [address] [place] [address] 88372MANKHAJC NEUTROPHIL7.8 X10E9/LHigh1.5-6.6ProMemorial Hermann Northeast HospitalComment on above:Performed By: #### CBCShakira, BMP #### [facility] ([id number]) [address] [place] [address] 07322Hdygtdyyv/100 WBC (Bld)0.7 %NormalThe [facility] Hospital Comment on above:Performed By: #### CBCShakira, BMP #### [facility] ([id number]) [address] [place] [address] 32375Rowsjroedfx (Bld) [#/Vol]0.0 10*3/uLNormal0.0-0.4The [facility]vue HospitalComment on above:Performed By: #### CBCA, BMP #### [facility] ([id number]) [address] [place] [address] 97275Rjnwvlfhcet/100 WBC (Bld)0.1 %NormalAultman Hospital on above:Performed By: #### CBCA, BMP #### [facility] ([id number]) [address] [place] [address] 13210Czcuesvloit distribution width (RBC) [Ratio]12.7 %Normal 11.5-15.0The [facility] HospitalComment on above:Performed By: #### CBCA, BMP #### [facility] ([id number]) [address] [place] [address] 88514Idzpwtskoe (Bld) [Volume fraction]38.3 %Zmvxxg96-28IjwMrebjmMemorial Hermann Northeast HospitalComment on above:Performed By: #### CBCA, BMP #### [facility] ([id number]) [address] [place] [address] 67346Qwsbntxdii (Bld) [Mass/Vol]13.2 g/jGQsoney37.7-15.5PRiverside Methodist HospitalComment on above:Performed By: #### CBCA, BMP #### [facility] ([id number]) [address] [place] [address] 48269Tzcelynrycf (Bld) [#/Vol]1.4 10*3/uLNormal1.0-3.5PRiverside Methodist HospitalComment on above:Performed By: #### CBCA, BMP #### [facility] ([id number]) [address] [place] [address] 08189Qdhhlwnuwqh/100 WBC (Bld)14.5 %[facility] Comment on above:Performed By: #### CBCA, BMP #### [facility] ([id number]) [address] [place] [address] 89169AJJ (RBC) [Entitic mass]30.5 dwRsqhyd01-49VmpMdlwohThe Bellevue HospitalComment on above:Performed By: #### CBCA, BMP #### [facility] ([id number]) [address] [place] [address] 63428GHLT (RBC) [Mass/Vol]34.5 g/jUYhnjyb64-75AraYsctqrMemorial Hermann Northeast HospitalComment on above:Performed By: #### CBCA, BMP #### [facility] ([id number]) [address] [place] [address] 50385GJW (RBC) [Entitic vol]88 bGPicwlz92-722DacUosagp [facility]remont HospitalComment on above:Performed By: #### CBCA, BMP #### [facility] ([id number]) [address] [place] [address] 09838Phmmzkwwt (Bld) [#/Vol]0.3 10*3/uLNormal0-0.9The [facility]vue HospitalComment on above:Performed By: #### CBCA, BMP #### [facility] ([id number]) [address] [place] [address] 20401Koexbgvlm/100 WBC (Bld)3.3 %[facility] Comment on above:Performed By: #### CBCA, BMP #### [facility] ([id number]) [address] [place] [address] 97804Wjtfxnnnsbw/100 WBC (Bld)81.4 %[facility] Comment on above:Performed By: #### CBCA, BMP #### [facility] ([id number]) [address] [place] [address] 63726Kkmvkply mean volume (Bld) [Entitic vol]8.2 fLNormal7-12 The [facility] HospitalComment on above:Performed By: #### VALE, BMP #### [facility] ([id number]) [address] [place] [address] 46102Jkjaxqvwl (Bld) [#/Vol]321 10*3/fFUxzowz510-790UtzAxbbva [facility] HospitalComment on above:Performed By: #### VALE, BMP #### [facility] ([id number]) [address] [place] [address] 10922BFF COUNT4.33 X10E12/LNormal3.80-5.20[facility] Comment on above:Performed By: #### VALE, BMP #### [facility] ([id number]) [address] [place] [address] 52412MWT (Bld) [#/Vol]9.6 10*3/uLNormal4.0-11.0The [facility]vue HospitalComment on above:Performed By: #### VALE, BMP #### [facility] ([id number]) [address] [place] [address] 25441HRVRMTQNTYSOG METABOLIC PANELon 53-35-1086Vciifqb [Mass/Vol]3.6 g/dLNormal3.2-5.3PRiverside Methodist HospitalComment on above:Performed By: #### VALE, BMP #### [facility] ([id number]) [address] [place] [address] 08373LWI [Catalytic activity/Vol]59 U/HPijwsa32-829RghUhhfmtMemorial Hermann Northeast HospitalComment on above:Performed By: #### VALE, BMP #### [facility] ([id number]) [address] [place] [address] 28938BOM [Catalytic activity/Vol]36 U/LHigh0-31PRiverside Methodist HospitalComment on above:Performed By: #### VALE, BMP #### [facility] ([id number]) [address] [place] [address], [place] [address]Wnohe gap [Moles/Vol]8 mmol/LNormal5-15ProMemorial Hermann Northeast HospitalComment on above:Performed By: #### VALE, BMP #### [facility] ([id number]) [address] [place] [address], [place] [address]NVP [Catalytic activity/Vol]21 U/LNormal0-41ProMemorial Hermann Northeast HospitalComment on above:Performed By: #### VALE, BMP #### [facility] ([id number]) [address] [place] [address], [place] [address]Cczftogvy [Mass/Vol]0.7 mg/dLNormal0.3-1.2PRiverside Methodist HospitalComment on above:Performed By: #### VALE, BMP #### [facility] ([id number]) [address] [place] [address], [place] [address]Vlpdjry [Mass/Vol]8.7 mg/dLNormal8.5-10.5PRiverside Methodist HospitalComment on above:Performed By: #### VALE, BMP #### [facility] ([id number]) [address] [place] [address], [place] [address]Ibrwztap [Moles/Vol]108 mmol/UXmoynk89-844XwfDogakaMemorial Hermann Northeast HospitalComment on above:Performed By: #### VALE, BMP #### [facility] ([id number]) [address] [place] [address], [place] [address]YV6 [Moles/Vol]21 mmol/NHgu99-55PbzApyhdlRiverside Methodist Hospital Comment on above:Performed By: #### VALE, BMP #### [facility] ([id number]) [address] [place] [address], [place] [address]Mfxhdlvyjq [Mass/Vol]0.55 mg/dLNormal0.40-1.00ProMemorial Hermann Northeast HospitalComment on above:Result Comment: METHOD TRACEABLE TO IDMS STANDARD Performed By: #### VALE, BMP #### [facility] ([id number]) [address] [place] [address] 40723xYFN (CKD-EPI) NON-RACE DEPENDENT>90Normal>59ProMemorial Hermann Northeast HospitalComment on above:Result Comment: Reported eGFR is based on the CKD-EPI 2020 equation that does not use a race coefficient.Performed By: #### VALE, BMP #### [facility] ([id number]) [address] [place] [address] 29989Wdhlyrs [Mass/Vol]141 mg/yLNmcj94-68VfsImppwaMemorial Hermann Northeast Hospital Comment on above:Performed By: #### VALE, BMP #### [facility] ([id number]) [address] [place] [address] 38130Jhcfpqcbx [Moles/Vol]3.8 mmol/LNormal3.5-5.0ProMemorial Hermann Northeast HospitalComment on above:Performed By: #### VALE, BMP #### [facility] ([id number]) [address] [place] [address] 80329Ohijbwf [Mass/Vol]6.5 g/dLNormal6.0-8.0ProMemorial Hermann Northeast HospitalComment on above:Performed By: #### VALE, BMP #### [facility] ([id number]) [address] [place] [address] 28171Keuqkh [Moles/Vol]137 mmol/QPinuqn953-400RdsEzltbw [facility] HospitalComment on above:Performed By: #### VALE, BMP #### [facility] ([id number]) [address] [place] [address] 60028Gkcw nitrogen [Mass/Vol]11 mg/dLNormal5-23ProMedica Madera Community HospitalComment on above:Performed By: #### CBCA, [facility] #### [facility] ([id number]) [address] [place] [address], FIRST F[place] [address]IT NECK SOFT TISSUE W CONTon 38-33-7922VT NECK SOFT TISSUE W CONTCT NECK SOFT TISSUE W CONT STUDY: CT [...] within the supraglottic, glottic or subglottic larynx. Signal Timer/Parapharyngeal: Muscles of mastication are unremarkable. Parapharyngeal fat is not displaced. Retropharyngeal: No retropharyngeal fluid. Thyroid: Normal thyroid without discrete lesion. Glands: Slight hyperenhancement of the left submandibular gland relative to the right. This overallis slightly improved from 06/25/2024. Slight interval decrease [...] Finalized by Nawaf Brody on 06/27/2024 10:40 AMNormalProMemorial Hermann Northeast HospitalMAGNESIUMon 34-80-7221Bzmuvmqik [Mass/Vol]2.0 mg/dLNormal1.8-2.6 [facility] Community HospitalComment on above:Performed By: #### CBCA, BMP #### [facility] ([id number]) [address] [place] [address] 69564ZXXLXTNFQue 69-02-0293Fkgpndhvs [Moles/Vol]3.9 mmol/LNormal 3.5-5.0The [facility]vue HospitalComment on above:Performed By: #### CBCA, BMP #### [facility] ([id number]) [address] [place] [address]3951Xixozyrm I.cardiac High sensitivity method [Mass/Vol]on HOUR TROP I, HIGH SENSITIVITY<2Normal<16[facility] Comment on above:Performed By: #### CBCA, BMP #### [facility] ([id number]) [address] [place] [address] 54379CF CHEST 1 VWon 64-53-4535CV CHEST 1 VWXR CHEST 1 VW EXAM: XR CHEST 1 VW CLINICAL INFORMATION: CP. COMPARISON: 03/23/2017 FINDINGS: There are no pleural effusions. The lungs are clear and well aerated. Heart size is within normal limits. IMPRESSION: 1. No acute cardiopulmonary disease. Finalized by Kam Barkley MD on 06/27/2024 12:38 PMNormalThe [facility] Hospital CBC AND AUTO DIFFon 09-89-5679CNFZZZTS BASOPHIL0.0 X10E9/LNormal0.0-0.2ProMedica Madera Community HospitalComment on above:Performed By: #### CBCA, CMP, #### [facility] ([id number]) [address] [place] [address] 85561RIXNPVQH NEUTROPHIL6.0 X10E9/LNormal1.5-6.6The [facility] HospitalComment on above:Performed By: #### SHEA COLLAZO, #### [facility] ([id number]) [address] [place] [address] 85635Sxmufiwlj/100 WBC (Bld)0.2 %NormalThe [facility] Comment on above:Performed By: #### SHEA COLLAZO, #### [facility] ([id number]) [address] [place] [address] 75135Qzcmctnunlt (Bld) [#/Vol]0.0 10*3/uLNormal0.0-0.4ProMemorial Hermann Northeast HospitalComment on above:Performed By: #### SHEA COLLAZO, #### [facility] ([id number]) [address] [place] [address] 49473Ukylqzioaoz/100 WBC (Bld)0.4 %NormalThe [facility] Comment on above:Performed By: #### SHEA COLLAZO, #### [facility] ([id number]) [address] [place] [address] 92403Kdzawsappkp distribution width (RBC) [Ratio]12.6 %Normal 11.5-15.0The [facility] HospitalComment on above:Performed By: #### SHEA COLLAZO, #### [facility] ([id number]) [address] [place] [address] 07165Jeanvqcwra (Bld) [Volume fraction]40.5 %Hvjmdz02-57YlpIgxifbMemorial Hermann Northeast HospitalComment on above:Performed By: #### CBCShakira CMP, #### [facility] ([id number]) [address] [place] [address] 52165Pinyrjdmjm (Bld) [Mass/Vol]13.7 g/bZGfadcx08.7-15.5PRiverside Methodist HospitalComment on above:Performed By: #### CBCA, CMP, #### [facility] ([id number]) [address] [place] [address] 54356Tojcdotcduk (Bld) [#/Vol]1.1 10*3/uLNormal1.0-3.5PRiverside Methodist HospitalComment on above:Performed By: #### CBCA, CMP, #### [facility] ([id number]) [address] [place] [address] 30514Jcdfbhahbwb/100 WBC (Bld)15.5 %NormalProMemorial Hermann Northeast Hospital Comment on above:Performed By: #### CBCA, CMP, #### [facility] ([id number]) [address] [place] [address] 49846DCR (RBC) [Entitic mass]30.1 krZfjoyu36-53LcfFzgxblThe Bellevue HospitalComment on above:Performed By: #### CBCA, CMP, #### [facility] ([id number]) [address] [place] [address] 73410YDOQ (RBC) [Mass/Vol]33.8 g/gGZefkji80-62GxdTgxbvkMemorial Hermann Northeast HospitalComment on above:Performed By: #### CBCA, CMP, #### [facility] ([id number]) [address] [place] [address] 52370ZMM (RBC) [Entitic vol]89 sQElaukc83-662RoaKinzwe [facility]ont HospitalComment on above:Performed By: #### CBCA, CMP, #### [facility] ([id number]) [address] [place] [address] 05447Aiibndlik (Bld) [#/Vol]0.1 10*3/uLNormal0-0.9The [facility] HospitalComment on above:Performed By: #### CBCShakira, CMP, 70773-2 #### [facility] ([id number]) [address] [place] [address] 97509Jeugukqfx/100 WBC (Bld)1.8 %NormalThe [facility] Hospital Comment on above:Performed By: #### CBCShakira, CMP, #### [facility] ([id number]) [address] [place] [address] 41174Ldxqpbfhofa/100 WBC (Bld)82.1 %[facility] Comment on above:Performed By: #### CBCShakira, CMP, #### [facility] ([id number]) [address] [place] [address] 98216Eocfcucw mean volume (Bld) [Entitic vol]8.3 fLNormal7-12 The [facility] HospitalComment on above:Performed By: #### VALE, CMP, #### [facility] ([id number]) [address] [place] [address] 96829Fcfyxtzdl (Bld) [#/Vol]265 10*3/eQEjzaoa113-003MtdJeuctz [facility] HospitalComment on above:Performed By: #### CBCA, CMP, #### [facility] ([id number]) [address] [place] [address] 54650APS COUNT4.55 X10E12/LNormal3.80-5.20[facility] Comment on above:Performed By: #### CBCA, CMP, #### [facility] ([id number]) [address] [place] [address], [place] [address]BZT (Bld) [#/Vol]7.3 10*3/uLNormal4.0-11.0The [facility] HospitalComment on above:Performed By: #### SHEA COLLAZO, 33056-5 #### [facility] ([id number]) [address] [place] [address] 88076KWCWCWMDGYMLF METABOLIC PANELon 04-17-8100Vwgzzfs [Mass/Vol]4.0 g/dLNormal3.2-5.3ProMedEastern Plumas District HospitalComment on above:Performed By: #### SHEA COLLAZO, #### [facility] ([id number]) [address] [place] [address] 31407GJT [Catalytic activity/Vol]67 U/PZropwp82-712MceKuccdcMemorial Hermann Northeast HospitalComment on above:Performed By: #### SHEA COLLAZO, #### [facility] ([id number]) [address] [place] [address], [place] [address]AMF [Catalytic activity/Vol]43 U/LHigh0-31PRiverside Methodist HospitalComment on above:Performed By: #### SHEA COLLAZO, 00467-7 #### [facility] ([id number]) [address] [place] [address] 20710Jgyyk gap [Moles/Vol]10 mmol/LNormal5-15ProMemorial Hermann Northeast HospitalComment on above:Performed By: #### SHEA COLLAZO, 51235-5 #### [facility] ([id number]) [address] [place] [address] 94478OSC [Catalytic activity/Vol]33 U/LNormal0-41ProMemorial Hermann Northeast HospitalComment on above:Performed By: #### SHEA COLLAZO, #### [facility] ([id number]) [address] [place], [place] [address]Tckhorvxf [Mass/Vol]0.4 mg/dLNormal0.3-1.2PRiverside Methodist HospitalComment on above:Performed By: #### SHEA COLLAZO, #### [facility] ([id number]) [address] [place] [address] 51920Yfifhvw [Mass/Vol]8.9 mg/dLNormal8.5-10.5PRiverside Methodist HospitalComment on above:Performed By: #### SHEA COLLAZO, #### [facility] ([id number]) [address] [place] [address] 77120Ytddeasa [Moles/Vol]106 mmol/HGxhpfj13-834PwxShnawaMemorial Hermann Northeast HospitalComment on above:Performed By: #### SHEA COLLAZO, #### [facility] ([id number]) [address] [place] [address] 61275QS9 [Moles/Vol]20 mmol/IIyo76-28OnwToblpfRiverside Methodist Hospital Comment on above:Performed By: #### SHEA COLLAZO, #### [facility] ([id number]) [address] [place] [address] 25939Bqbdppcrnr [Mass/Vol]0.57 mg/dLNormal0.40-1.00ProMemorial Hermann Northeast HospitalComment on above:Result Comment: METHOD TRACEABLE TO IDMS STANDARD Performed By: #### SHEA COLLAZO, #### [facility] ([id number]) [address] [place] [address] 00184aNJY (CKD-EPI) NON-RACE DEPENDENT>90Normal>59ProMemorial Hermann Northeast HospitalComment on above:Result Comment: Reported eGFR is based on the CKD-EPI 2020 equation that does not use a race coefficient.Performed By: #### SHEA COLLAZO, #### [facility] ([id number]) [address] [place] [address], [place] [address]Boxsepb [Mass/Vol]129 mg/jLZasa87-44TegKbdfqsMemorial Hermann Northeast Hospital Comment on above:Performed By: #### SHEA COLLAZO, #### [facility] ([id number]) [address] [place] [address] 39178Wanulfaih [Moles/Vol]4.1 mmol/LNormal3.5-5.0ProMemorial Hermann Northeast HospitalComment on above:Performed By: #### SHEA COLLAZO, #### [facility] ([id number]) [address] [place] [address], [place] 633[address]Rfdthmm [Mass/Vol]7.0 g/dLNormal6.0-8.0ProMemorial Hermann Northeast HospitalComment on above:Performed By: #### SHEA COLLAZO, #### [facility] ([id number]) [address] [place] [address], [place] [address]Lgkqor [Moles/Vol]136 mmol/WSdbspk323-628XtuQlbgoj [facility] HospitalComment on above:Performed By: #### SHEA COLLAZO, #### [facility] ([id number]) [address] [place] [address] 89303Zltn nitrogen [Mass/Vol]9 mg/dLNormal5-23ProMemorial Hermann Northeast HospitalComment on above:Performed By: #### SHEA COLLAZO, #### [facility] ([id number]) [address] [place] [address] 21484VPZGCDWPAnb 17-61-0252Aibqxylsn [Mass/Vol]2.1 mg/dLNormal 1.8-2.6ProMemorial Hermann Northeast HospitalComment on above:Performed By: #### SHEA COLLAZO, #### [facility] ([id number]) [address] [place] [address] 70690FQBVN METABOLIC PANLon 00-68-0396Wmbgt gap [Moles/Vol]6 mmol/L Normal5-15The [facility] HospitalComment on above:Performed By: #### VALE, BMP #### [facility] ([id number]) [address] [place] [address], [place] [address]Noqkzof [Mass/Vol]9.0 mg/dLNormal8.5-10.5PRiverside Methodist HospitalComment on above:Performed By: #### VALE, BMP #### [facility] ([id number]) [address] [place] [address] 14210Symckbfi [Moles/Vol]106 mmol/XEstzjk10-366DuhPktdpkMemorial Hermann Northeast HospitalComment on above:Performed By: #### VALE, BMP #### [facility] ([id number]) [address] [place] [address] 11269KB4 [Moles/Vol]25 mmol/SBvyasc32-52WegHebmonRiverside Methodist Hospital Comment on above:Performed By: #### VALE, BMP #### [facility] ([id number]) [address] [place] [address] 37883Wdiqnplmho [Mass/Vol]0.54 mg/dLNormal0.40-1.00The [facility] HospitalComment on above:Result Comment: METHOD TRACEABLE TO IDMS STANDARD Performed By: #### VALE, BMP #### [facility] ([id number]) [address] [place] [address] 09283tDBW (CKD-EPI) NON-RACE DEPENDENT>90Normal>59ProMemorial Hermann Northeast HospitalComment on above:Result Comment: Reported eGFR is based on the CKD-EPI 2020 equation that does not use a race coefficient.Performed By: #### VALE, BMP #### [facility] ([id number]) [address] [place] [address] [place] [address]Mklfahl [Mass/Vol]145 mg/sOXcyb58-58EyjBdzzotThe [facility] Hospital Comment on above:Performed By: #### VALE, BMP #### [facility] ([id number]) [address] [place] [address], [place] [address]Xhednpshm [Moles/Vol]3.5 mmol/LNormal3.5-5.0ProMemorial Hermann Northeast HospitalComment on above:Performed By: #### CBCShakira, BMP #### [facility] ([id number]) [address] [place] [address], [place] [address]Tuibbe [Moles/Vol]137 mmol/MAugout816-293HkxBdlwco [facility] HospitalComment on above:Performed By: #### VALE, BMP #### [facility] ([id number]) [address] [place] [address], [place] [address]Leio nitrogen [Mass/Vol]9 mg/dLNormal5-23ProMemorial Hermann Northeast HospitalComment on above:Performed By: #### VALE, BMP #### [facility] ([id number]) [address] [place] [address], [place] [address]HWF AND AUTO DIFFon 29-38-1420ZUCVBZRK BASOPHIL0.1 X10E9/L Normal0.0-0.2ProMedEastern Plumas District HospitalComment on above:Performed By: #### VALE, BMP #### [facility] ([id number]) [address] [place] [address], [place] [address]HYXSJIDR NEUTROPHIL3.1 X10E9/LNormal1.5-6.6ProMemorial Hermann Northeast HospitalComment on above:Performed By: #### CBCShakira, BMP #### [facility] ([id number]) [address] [place] [address] 42694Upogqvljo/100 WBC (Bld)0.9 %NormalProMemorial Hermann Northeast Hospital Comment on above:Performed By: #### CBCShakira, BMP #### [facility] ([id number]) [address] [place] [address] 83705Snrroheumqs (Bld) [#/Vol]0.1 10*3/uLNormal0.0-0.4The [facility] HospitalComment on above:Performed By: #### CBCA, BMP #### [facility] ([id number]) [address] [place] [address] 74669Pbgylvidwnu/100 WBC (Bld)2.0 %NormalProMemorial Hermann Northeast Hospital Comment on above:Performed By: #### CBCShakira, BMP #### [facility] ([id number]) [address] [place] [address] 44149Zgmswggmplo distribution width (RBC) [Ratio]12.7 %Normal 11.5-15.0ProMemorial Hermann Northeast HospitalComment on above:Performed By: #### CBCA, BMP #### [facility] ([id number]) [address] [place] [address] 97804Ahcgdmsirv (Bld) [Volume fraction]39.8 %Seqhfk03-11GukXbwqavMemorial Hermann Northeast HospitalComment on above:Performed By: #### CBCA, BMP #### [facility] ([id number]) [address] [place] [address] 30756Autrfvkdse (Bld) [Mass/Vol]13.6 g/eHSkzzgh86.7-15.5PRiverside Methodist HospitalComment on above:Performed By: #### CBCA, BMP #### [facility] ([id number]) [address] [place] [address] 71645Rbdkiythcrx (Bld) [#/Vol]2.8 10*3/uLNormal1.0-3.5PRiverside Methodist HospitalComment on above:Performed By: #### CBCA, BMP #### [facility] ([id number]) [address] [place] [address] 34180Tclhwrrofme/100 WBC (Bld)44.5 %[facility] Comment on above:Performed By: #### CBCA, BMP #### [facility] ([id number]) [address] [place] [address] 31828NSE (RBC) [Entitic mass]30.2 mjEbxpbm51-41MwvVwnmqiThe Bellevue HospitalComment on above:Performed By: #### CBCA, BMP #### [facility] ([id number]) [address] [place] [address] 89819CEBR (RBC) [Mass/Vol]34.2 g/kSKjoejr95-58JwwSytsvpThe [facility]vue HospitalComment on above:Performed By: #### CBCA, BMP #### [facility] ([id number]) [address] [place] [address] 21269NQA (RBC) [Entitic vol]88 nRXwviwk86-981TgbEhngefThe Bellevue HospitalComment on above:Performed By: #### CBCA, BMP #### [facility] ([id number]) [address] [place] [address] 52659Vznlbwjhg (Bld) [#/Vol]0.3 10*3/uLNormal0-0.9The [facility] HospitalComment on above:Performed By: #### CBCA, BMP #### [facility] ([id number]) [address] [place] [address] 69369Cslojbeuz/100 WBC (Bld)4.1 %[facility] Comment on above:Performed By: #### CBCA, BMP #### [facility] ([id number]) [address] [place] [address] 79173Vpmdnbrfawm/100 WBC (Bld)48.5 %[facility] Comment on above:Performed By: #### CBCShakira, BMP #### [facility] ([id number]) [address] [place] [address] 27385Glmafixq mean volume (Bld) [Entitic vol]7.8 fLNormal7-12 The [facility] HospitalComment on above:Performed By: #### VALE, BMP #### [facility] ([id number]) [address] [place] [address] 76884Sgkcykkdg (Bld) [#/Vol]289 10*3/dKGoqior892-943GlfVgsfxx [facility] HospitalComment on above:Performed By: #### VALE, BMP #### [facility] ([id number]) [address] [place] [address] 89013WBX COUNT4.51 X10E12/LNormal3.80-5.20[facility] Comment on above:Performed By: #### VALE, BMP #### [facility] ([id number]) [address] [place] [address] 63424PHZ (Bld) [#/Vol]6.4 10*3/uLNormal4.0-11.0The [facility] HospitalComment on above:Performed By: #### VALE, BMP #### [facility] ([id number]) [address] [place] [address] 88757KO NECK SOFT TISSUE W CONTon 26-84-1709HT NECK SOFT TISSUE W CONTCT NECK SOFT TISSUE W CONT History: Nonpulsatile [...] of lingual tonsillar tissue that is moderately narrowingthe airway just above the epiglottis. There appears to be some associated thickening of the aryepiglottic folds as well, without enlargement of the epiglottis itself is seen sagittally. The uvula appears somewhat thickened as well. There is submandibular lymphadenopathy and some enlarged nodes in the deep change in upper cervicallevels bilaterally. Lymph nodes measure up to maximum [...] by Vladimir Hall MD on 06/25/2024 11:59 PMNormalProMemorial Hermann Northeast HospitalHCG ( test) Ql (U)on 79-16-7590Zdhm HCG ( test) Ql (U) NegativeNormalNEGThe Bellevue HospitalComment on above:Performed By: #### 2106-3 #### [facility] ([id number]) [address] [place] [address] 06130GNQUX STREP SCR NURSINGon 06-25-2024S. pyogenes Ag EIA Ql (Throat)PositiveAbnormalNEGThe Bellevue HospitalComment on above:Performed By: #### 6556-5 #### [facility] ([id number]) [address] [place] [address] 52432ECHOE PCR THROATon 06-25-2024S. pyogenes DNA TRAY+probe Nom (Unsp spec)STREP PCR THROAT Negative (qualifier value) Streptococcus Group A NOT detected by nucleic acid amplification.NormalProMemorial Hermann Northeast HospitalComment on above: Performed By: #### 95475-6 #### [facility] ([id number]) [address] [place], [place] [address]RM ANKLE LT MIN 3 VWSon 18-75-7534WB ANKLE LT MIN 3 VWSXR ANKLE LT MIN 3 VWS XR ANKLE LT MIN 3 VWS INDICATION: . Left ankle pain FINDINGS: Diffuse soft tissue swelling most notably at the lateral portion the left ankle. No acute fracture.No dislocation. Satisfactory alignment of the ankle mortise. Plantar calcaneal spur formation. IMPRESSION: 1. No fracture or dislocation. 2. Diffuse soft tissue swelling left ankle. Finalized by Tyrese Emmanuel MD on 04/26/2024 12:06 PMNormalProMedica Madera Community HospitalBasophils Auto (Bld) [#/Vol]on 31-05-1788Wramrrdnt (Bld) [#/Vol] Automated basophil count0.0-0.1FMercy Health St. Elizabeth Boardman HospitalBasophils/100 WBC Auto (Bld)on 69-26-4354Yjrpgtgvc/100 WBC (Bld)Automated basophil %0.2-2.0 [facility] HospitalEosinophils/100 WBC Auto (Bld)on 04-18-2024 Eosinophils/100 WBC (Bld)Automated eosinophil %0.9-7.0[facility] HospitalErythrocyte distribution width Auto (RBC) [Ratio]on 23-11-0766Wclbveqrmhr distribution width (RBC) [Ratio]Erythrocyte distribution width [Ratio] by Automated count11.0-15.0[facility] HospitalHematocrit Auto (Bld) [Volume fraction]on 83-29-0732Tdnpkuysel (Bld) [Volume fraction]Hematocrit [Volume Fraction] of Blood by Automated count36.0-48.0[facility] HospitalHemoglobin [Mass/volume] in Bloodon 85-76-1221Qhzmacetnn (Bld) [Mass/Vol] Hemoglobin [Mass/volume] in Blood12.0-16.0[facility] - Chemistry and Chemistry - challengeon 65-46-3115Fswiugjdj Ql (U) NegativeNEGATIVEThe [facility] HospitalGlucose (U) [Mass/Vol]Negative NEGATIVEThe [facility] HospitalKetones Ql (U)NegativeNEGATIVEThe [facility] HospitalpH (U)6.5 [pH]5.0-9.0[facility] Specific gravity (U) [Rel density]1.0101.005-1.025[facility] HospitalUrobilinogen Qn (U)0.2 {Melissa'U}/dL0.2-1.0[facility] HospitalLaboratory - Hematology and Cell countson 42-39-5491Dkwmjgzc granulocytes/100 WBC (Bld)0.3 %0.0-0.5FMercy Health St[facility] - Specimen informationon 50-21-9968Antcbpzplr (U)CLEARCLEARFMercy Health St. Elizabeth Boardman HospitalColor (U)LT. YELLOWYELLOWThe [facility] HospitalLaboratory - Urinalysison 46-41-8553Eebfpelxj esterase Test strip Ql (U) NegativeNEGATIVEThe [facility]vue HospitalMucus Ql (Urine sed)NONE SEEN NONE SEENThe [facility] HospitalNitrite Ql (U)NegativeNEGATIVE [facility] HospitalProtein Ql (U)NegativeNEG/TRACEThe [facility] HospitalLeukocytes [#/volume] corrected for nucleated erythrocytes in Blood by Automated counon 32-86-3702HDH corrected for nucl RBC Auto (Bld) [#/Vol]Leukocytes [#/volume] corrected for nucleated erythrocytes in Blood by Automated coun4.0-11.0[facility] HospitalLymphocytes Auto (Bld) [#/Vol]on 12-09-2080Asltbjjasue (Bld) [#/Vol]Lymphocytes [#/volume] in Blood by Automated count1.2-3.8[facility] HospitalLymphocytes/100 WBC Auto (Bld)on 58-27-2391Nugyvyhidgc/100 WBC (Bld)Lymphocytes/100 leukocytes in Blood by Automated count20.5-60.0[facility] HospitalH Auto (RBC) [Entitic mass]on 14-78-3503ARN (RBC) [Entitic mass]MCH [Entitic mass] by Automated count26.7-34.0[facility] HospitalMCHC Auto (RBC) [Mass/Vol]on 75-92-9903DBYP (RBC) [Mass/Vol]MCHC [Mass/volume] by Automated count29.9-35.2FMercy Health St. Elizabeth Board[facility] HospitalMCV Auto (RBC) [Entitic vol]on 16-84-9616TXI (RBC) [Entitic vol]MCV [Entitic volume] by Automated count 81.0-99.0[facility] HospitalMonocytes Auto (Bld) [#/Vol]on 94-50-0389Drzbwxdma (Bld) [#/Vol]Automated blood monocyte count0.3-0.8[facility] HospitalMonocytes/100 WBC Auto (Bld)on 52-52-1622Yaxsggvbq/100 WBC (Bld)Automated monocyte %1.7-12.0[facility] Neutrophils Auto (Bld) [#/Vol]on 54-43-3396Yildyqttjen (Bld) [#/Vol]Neutrophils [#/volume] in Blood by Automated count1.4-6.5FMercy Health St[facility] Neutrophils/100 WBC Auto (Bld)on 27-62-4840Kyiqqhightq/100 WBC (Bld)Automated neutrophil %43.0-75.0[facility] HospitalNo Panel Informationon 40-11-8655Wiijzvptkai # (Auto)0.3 10 3/uL0.0-0.7FMercy Health St. [facility] Board[facility] HospitalImmature Granulocyte # (Auto)0.02 10 3/uL0.00-0.03[facility] HospitalUrine BacteriaTRACE #/HPFAbnormalNONE [facility] HospitalUrine Occult BloodMODERATEAbnormalNEGATIVEThe [facility] HospitalUrine Other CastsNONE SEEN #/LPFNONE [facility] HospitalUrine Other CrystalsNone Seen #/HPFNone [facility] HospitalUrine RBCNONE SEEN #/HPF0-2FMercy Health St. Elizabeth Boardman HospitalUrine Squamous Epithelial CellsFEW #/LPFAbnormalNONE/RAREThe [facility] HospitalUrine WBCNONE SEEN #/HPFNONE [facility] HospitalPlatelet mean volume Auto (Bld) [Entitic vol]on 51-83-8573Mxrhallu mean volume (Bld) [Entitic vol]Platelet mean volume [Entitic volume] in Blood by Automated count Low9.5-13.5FMercy Health St. Elizabeth Boardman HospitalPlatelets Auto (Bld) [#/Vol]on 41-49-5546Lffdrsnoj (Bld) [#/Vol]Platelets [#/volume] in Blood by Automated -608XytvnasnbThe [facility] HospitalRBC Auto (Bld) [#/Vol]on 04-18-2024 RBC (Bld) [#/Vol]Erythrocytes [#/volume] in Blood by Automated count4.20-5.40 [facility] HospitalInfluenza virus B Ag [Presence] in Upper respiratory specimen by Rapid immunoassayon 33-69-4637QKZOT Ag IA.rapid Ql (Nph) Influenza virus B Ag [Presence] in Upper respiratory specimen by Rapid immunoassayThe [facility] HospitalLaboratory - Chemistry and Chemistry - challengeon 35-16-7200Tnvqmpvbr Ql (U)NegativeThe [facility] HospitalGlucose (U) [Mass/Vol]NegativeThe [facility] HospitalKetones Ql (U)NegativeThe [facility] HospitalpH (U)5.0 [pH][facility]tering Healthpecific gravity (U) [Rel density]1.015The [facility] HospitalUrobilinogen (U) [Mass/Vol]0.2 mg/dLThe [facility] Laboratory - Specimen informationon 79-73-9984Ewfxcvbscu (U)cloudyThe [facility] HospitalColor (U)darkyellowThe [facility] Laboratory - Urinalysison 55-55-3470Zmzisiluy esterase Test strip Ql (U)Negative [facility] HospitalNitrite Ql (U)NegativeThe [facility] HospitalProtein Ql (U)+[facility] HospitalNo Panel Informationon 61-76-7952Siochegdb Type A (Rapid)NegativeThe [facility] HospitalPOC SARS CoV-2 AntigenNegativeThe [facility] Urine Occult Blood5-10[facility] HospitalNo Panel Information Ordered By: Krishna Lott on 19-60-7782Pasum Strep (POC)[facility] HospitalPAP ACOG PANEL 2: 21 to 29on 08-28-2022..NormalThe Newark HospitalComment on above:Performed By: #### [id number] #### [facility] [address] [address] [address] Medina Rendon Gdln [facility] Dndbzdc49-54HeqfxjTazMercy Health [facility]ard Hospital on above:Performed By: #### [id number] #### [facility] [address] [place] [address] Dr. Medina MenchacaDIAGNOSIS:CommentUK Healthcare on above: Result Comment: NEGATIVE FOR INTRAEPITHELIAL LESION OR MALIGNANCY.Performed By: #### [id number] #### [facility] [address] [place] [address] Dr. Medina MenchacaMethodology:CommentUK Healthcare on above: Result Comment: This liquid based ThinPrep(R) pap test was screened with the use of an image guided system.Performed By: #### [id number] #### [place] [address] [address] [address] Medina MenchacaNote:CommentUK Healthcare on above:Result Comment: The Pap smear is a screening test designed to aid in the detection of premalignant and malignant conditions of the uterine cervix. It is not a diagnostic procedure and should not be used as the sole means of detecting cervical cancer. Both false-positive and false-negative reports do occur. .Performed By: #### [id number] #### [address] [address] [address] Dr[address] Medina MenchacaPerformed by:[facility] on above: Result Comment: Nadya Martel Emergency Department Manager (ASCP)Performed By: #### [id number] #### [facility] [address] [place] [address] Dr. Medina MenchacaReflex Criteria:CommentUK Healthcare on above:Result Comment: The HPV DNA reflex criteria were not met with this specimen result therefore, no HPV testing was performed. .Performed By: #### [id number] #### [facility] [address] [place] [address] Dr. Medina MenchacaSpecimen adequacy:CommentUK Healthcare on above:Result Comment: Satisfactory for evaluation. No endocervical component is identified.Performed By: #### [id number] #### [facility] [address] [place] [address] Dr. Medina Russ URINEon 09-45-9479OEIGTIO URINEIsolate 1 Escherichia coli >100,000 cfu/mL of ORGANISM 1 Escherichia coli ANTIBIOTIC M.I.C RX STATUS Ampicillin >=32 R F Ampicillin/Sulbactam 16 I F Piperacillin/Tazobactam <=4 S F Cefazolin <=4 S F Ceftazidime <=1 S F Ceftriaxone <=1 S F Ertapenem <=0.5 S F Imipenem <=0.25 S F Amikacin <=2 S F Gentamicin <=1 S F Tobramycin <=1 S F Ciprofloxacin <=0.25 S F Levofloxacin <=0.12 S F Nitrofurantoin <=16 S F Trimethoprim/Sulfamethoxazole <=20 S FNormalThe Newark HospitalComment on above:Performed By: #### URCX #### [facility] [address] [place] [address] Dr. Medina Jimenez AUTO DIFFon 37-30-7797WSDK #0.0 103/ulNormal0.0-0.1[facility] ColumbusComment on above:Performed By: #### CBC #### [facility] [address] [place] [address] Dr. Medina Heatonsophils/100 WBC (Bld)0.2 %Normal0.2-2.0[facility] Comment on above:Performed By: #### CBC #### [facility] [address] [place] [address] Dr. Medina Bradley #0.1 103/ulNormal0.0-0.7The [facility] HospitalComment on above: Performed By: #### CBC #### [facility] [address] [place] [address] Dr. Medina Turnerosinophils/100 WBC (Bld)1.2 %Normal0.9-7.0[facility] Comment on above:Performed By: #### CBC #### [facility] [address] [place] [address] Dr. Medina Turnerrythrocyte distribution width (RBC) [Ratio]12.5 %Tnhblr22.0-15.0 The [facility] HospitalComment on above:Performed By: #### CBC #### [facility] [address] [place] [address] Dr. Medina MenchacaHematocrit (Bld) [Volume fraction]41.5 %Rzlmhe75.0-48.0The [facility] HospitalComment on above:Performed By: #### CBC #### [facility] [address] [place] [address] Dr. Medina MenchacaHemoglobin (Bld) [Mass/Vol]13.8 g/xZQgctfp86.0-16.0The [facility] on above:Performed By: #### CBC #### [facility] [address] [place] [address] Dr. Medina Perdomo #0.03 10e3/ulNormal0.00-0.03The [facility] on above:Performed By: #### CBC #### [facility] [address] [place] [address] Dr. Medina Perdomo %0.3 %Normal0.0-0.5The [facility] HospitalComhillsdale hospital on above: Performed By: #### CBC #### [facility] [address] [place] [address] Dr. Medina FioreH #2.2 103/ulNormal1.2-3.8The [facility] on above:Performed By: #### CBC #### [facility] [address] [place] [address] Dr. Medina Gandaramphocytes/100 WBC (Bld)24.4 %Jxndfx44.5-60.0The [facility] on above:Performed By: #### CBC #### [facility] [address] [place] [address] Dr. Medina CarterUAL DIFF REQNONormalThe Newark HospitalComment on above: Performed By: #### CBC #### [facility] [address] [address] [address] Medina Vasquez (RBC) [Entitic mass]30.5 oePizpot64.7-34.0The [facility] HospitalComment on above:Performed By: #### CBC #### [facility] [address] [place] [address] Dr. Medina Vasquez (RBC) [Mass/Vol]33.3 g/qUPhqwin37.9-35.2The [facility] HospitalComment on above:Performed By: #### CBC #### [facility] [address] [place] [address] Dr. Medina VasquezV (RBC) [Entitic vol]91.6 eISqrczj20.0-99.0The [facility] HospitalComment on above:Performed By: #### CBC #### [facility] [address] [place] [address] Dr. Medina Whitehead #0.4 103/ulNormal0.3-0.8The [facility] HospitalComment on above:Performed By: #### CBC #### [facility] [address] [place] [address] Dr. Medina Heartocytes/100 WBC (Bld)4.4 %Normal1.7-12.0[facility] Comment on above:Performed By: #### CBC #### [facility] [address] [place] [address] Dr. Medina Quezada #6.2 103/ulNormal1.4-6.5The [facility] HospitalComment on above:Performed By: #### CBC #### [facility] [address] [place] [address] Dr. Medina Canelautrophils/100 WBC (Bld)69.5 %Gefxsf50.0-75.0The [facility] HospitalComment on above:Performed By: #### CBC #### [facility] [address] [place] [address] Dr. Medina Maherlet mean volume (Bld) [Entitic vol]10.6 fLNormal9.5-13.5The [facility] HospitalComment on above:Performed By: #### CBC #### [facility] [address] [address] [address] Medina MenchacaPLT197 103/ypFwkhsc524-913Znq [facility] on above: Performed By: #### CBC #### [facility] [address] [place] [address] Dr. Medina MenchacaRBC4.53 106/ulNormal4.20-5.40The [facility] on above:Performed By: #### CBC #### [facility] [address] [address] [address] Medina MenchacaWBC8.9 103/ulNormal4.0-11.0The [facility] on above: Performed By: #### CBC #### [facility] [address] [place] [address] Dr. Medina MenchacaCT ABD/PELV W CONon 05-52-6073QT ABD/PELV W CONEXAMINATION: CT ABD/PELV W CON HISTORY: Acute appendicitis [...] Electronically authenticated by: ROGELIO FUCHS Date: 2022-03-03 20:58NoH[facility]ing [facility] URINE PROFILEon 00-84-3403Ippgqmdcw Ql (U)NegativeNormal NEGATIVESelect Medical Specialty Hospital - ColumbusComment on above:Performed By: #### UMICRO, PREGU, ERUR #### [facility] [address] [address] [address] Medina Davilaarity (U)CLEARNormalCLEARSelect Medical Specialty Hospital - ColumbusComment on above: Performed By: #### UMICRO, PREGU, ERUR #### [facility] [address] [address] [address] Medina Mendes (U)LT. YELLOWNormalYELLOWSelect Medical Specialty Hospital - ColumbusComment on above:Performed By: #### UMICRO, PREGU, ERUR #### [facility] [address] [address] [address] Medina Mdidleton micrscopic examination will be performed if indicated. NormalSelect Medical Specialty Hospital - ColumbusComment on above:Performed By: #### UMICRO, PREGU, ERUR #### [facility] [address] [address] [address] Medina Reyesose Ql (U)NegativeNormalNEGATIVESelect Medical Specialty Hospital - ColumbusComment on above:Performed By: #### UMICRO, PREGU, ERUR #### [facility] [address] [address] [address] Medina MenchacaHemoglobin Ql (U)TRACE-INTACTAbnormalNEGATIVESelect Medical Specialty Hospital - ColumbusComment on above:Performed By: #### UMICRO, PREGU, ERUR #### [facility] [address] [place] [address] Dr. Medina Zamoraones Ql (U)NegativeNormalNEGATIVESelect Medical Specialty Hospital - ColumbusComment on above:Performed By: #### UMICRO, PREGU, ERUR #### [facility] [address] [place] [address] Dr. Yilan ChangLEUKOCYTESTRACEAbnormalNEGATIVEThe [facility] HospitalComment on above:Performed By: #### CAM LOZANO, ERUR #### [facility] [address] [place] [address] Dr. Medina Aguilartrcristofer Ql (U)NegativeNormalNEGATIVEThe [facility] HospitalComment on above:Performed By: #### CAM LOZANO, ERUR #### [facility] [address] [place] [address] Dr. Medina MenchacapH (U)6.0 [pH]Normal5-9The [facility] HospitalComment on above: Performed By: #### CAM LOZANO, ERUR #### [facility] [address] [place] [address] Dr. Medina MenchacaSPEC GRAVITY1.121Fczxcs9.005-<=1.025The [facility] HospitalComment on above:Performed By: #### CAM LOZANO, ERUR #### [facility] [address] [place] [address] Dr. Medina MenchacaUA PROTEINNegativeNormalNEGATIVE/ TRACEThe [facility] Comment on above:Performed By: #### CAM LOZANO, ERUR #### [facility] [address] [place] [address] Dr. Medina Aguirre MICRO INDINDICATEDNormalThe [facility] HospitalComment on above: Performed By: #### CAM LOZANO, ERUR #### [facility] [address] [place] [address] Dr. Medina Rossbilinogen Qn (U)1.0 {Melissa'U}/dLNormal0.2 - 1.0The [facility] HospitalComment on above:Performed By: #### CAM LOZANO, ERUR #### [facility] [address] [place] [address] Dr. Medina MenchacaLIPASEon 91-35-9887Dlyhmu [Catalytic activity/Vol]116.0 U/LNormal 73.0-393.0The [facility] HospitalComment on above:Performed By: #### LIPA, CMP #### [facility] [address] [place] [address] Dr. Medina MenchacaPREGNANCY URon 24-79-0422ZKHHCTYMK, QUALNegativeNormalNEGATIVEThe [facility] HospitalComment on above:Performed By: #### UMICRO, PREGU, ERUR #### [facility] [address] [address] [address] Medina MenchacaPROF 14(COMP METB)on 75-22-7680Gbrblol [Mass/Vol]3.7 g/dLNormal 3.4-5.0The [facility] HospitalComment on above:Performed By: #### LIPA, CMP #### [facility] [address] [place] [address] Dr. Medina MenchacaAlbumin/Globulin [Mass ratio]1.1 {ratio}NormalThe Newark HospitalComment on above:Performed By: #### LIPA, CMP #### [facility] [address] [place] [address] Dr. Medina Arechiga [Catalytic activity/Vol]117 U/LCritically chvi40-605Rxq [facility] HospitalComment on above:Performed By: #### LIPA, CMP #### [facility] [address] [place] [address] Dr. Medina Garza [Catalytic activity/Vol]68 U/LCritically bdll89-94Coq [facility] HospitalComment on above:Performed By: #### LIPA, CMP #### [facility] [address] [place] [address] Dr. Medina Woodall gap [Moles/Vol]9.0 mmol/LNormalThe [facility] HospitalComment on above:Performed By: #### LIPA, CMP #### [facility] [address] [place] [address] Dr. Medina Kraft [Catalytic activity/Vol]31 U/AJahiij22-52Tvv [facility] HospitalComment on above:Performed By: #### LIPA, CMP #### [facility] [address] [place] [address] Dr. Medina MenchacaBilirubin [Mass/Vol]0.6 mg/dLNormal0.2-1.0[facility] Comment on above:Performed By: #### LIPA, CMP #### [facility] [address] [address] [address] Medina MenchacaCalcium [Mass/Vol]8.7 mg/dLNormal8.5-10.1[facility] Comment on above:Performed By: #### LIPA, CMP #### [facility] [address] [place] [address] Dr. Medina MenchacaChloride [Moles/Vol]103 mmol/GGwbzlm34-926Dwb [facility] Comment on above:Performed By: #### LIPA, CMP #### [facility] [address] [place] [address] Dr. Medina MenchacaCO2 [Moles/Vol]27.6 mmol/LSxcgfy84.0-32.0[facility] Comment on above:Performed By: #### LIPA, CMP #### [facility] [address] [place] [address] Dr. Medina MenchacaCreatinine [Mass/Vol]0.72 mg/dLNormal0.55-1.02The [facility] HospitalComment on above:Performed By: #### LIPA, CMP #### [facility] [address] [place] [address] Dr. Medina TurnerGFR-AF KENYAN>60Normal>=60The [facility] HospitalComment on above:Performed By: #### LIPA, CMP #### [facility] [address] [place] [address] Dr. Medina TurnerGFR-NON AF KENYAN>60Normal>=60The [facility] HospitalComment on above:Performed By: #### LIPA, CMP #### [facility] [address] [place] [address] Dr. Medina MenchacaGlobulin (S) [Mass/Vol]3.4 g/dLNormalThe [facility] HospitalComment on above:Performed By: #### LIPA, CMP #### [facility] [address] [address] [address] Medina MenchacaGlucose [Mass/Vol]87 mg/lJCabsgs72-483Akk [facility] Comment on above:Performed By: #### LIPA, CMP #### [facility] [address] [address] [address] Medina MenchacaPotassium [Moles/Vol]3.6 mmol/LNormal3.5-5.1[facility] Comment on above:Performed By: #### LIPA, CMP #### [facility] [address] [address] [address] Medina MenchacaProtein [Mass/Vol]7.1 g/dLNormal6.4-8.2[facility] Comment on above:Performed By: #### LIPA, CMP #### [facility] [address] [address] [address] Medina MenchacaSodium [Moles/Vol]136 mmol/CTzzzhh739-255Wne [facility] Comment on above:Performed By: #### LIPA, CMP #### [facility] [address] [address] [address] Medina MenchacaUrea nitrogen [Mass/Vol]8.0 mg/dLNormal7.0-18.0The [facility] HospitalComment on above:Performed By: #### LIPA, CMP #### [facility] [address] [address] [address] Medina Patton nitrogen/Creatinine [Mass ratio]11.1 mg/mgNoMercy Health St. Vincent Medical CenterComment on above:Performed By: #### LIPA, CMP #### [facility] [address] [address] [address] Medina Rodriguez MICROSCOPIC ONLYon 10-89-8234YNEKKXNIAQOPLUzwmjqciOURE SEEN [facility] ColumbusComment on above:Performed By: #### UMICRO, PREGU, ERUR #### [facility] [address] [address] [address] Medina Heatonctfelipe identified Cx Nom (U)INDICATEDNoMercy Health St. Vincent Medical CenterComment on above:Performed By: #### UMICRO, PREGU, ERUR #### [facility] [address] [address] [address] Medina Starr SEENNormalNONE SEENSelect Medical Specialty Hospital - ColumbusComment on above:Performed By: #### UMICRO, PREGU, ERUR #### [facility] [address] [address] [address] Medina Jaramillo LM Nom (Urine sed)NONE SEENNormalNONE SEENThe [facility] HospitalComment on above:Performed By: #### UMICRO, PREGU, ERUR #### [facility] [address] [address] [address] Haney ChangEpithelial cells LM Ql (Urine sed)RARENormalNONE SEEN /RAREThe [facility] HospitalComhillsdale hospital on above:Performed By: #### UMICRO, PREGU, ERUR #### [facility] [address] [place] [address] Dr. Medina Munoz SEENNormalNONE SEENSelect Medical Specialty Hospital - ColumbusComhillsdale hospital on above:Performed By: #### UMICRO, PREGU, ERUR #### [facility] [address] [place] [address] Dr. Medina RichardsonNdecqPVG2-1Curkyn8-9RebBluffton Hospital on above:Performed By: #### UMICRO, PREGU, ERUR #### [facility] [address] [place] [address] Dr. Medina MenchacaWBC2-5AbnormalNONE SEENBluffton Hospital on above: Performed By: #### UMICRO, PREGU, ERUR #### [facility] [address] [place] [address] Dr. Medina Gayle-19 PCR (CVDTB)on 64-18-2899YGEM-CoV-2 (COVID-19) RNA TRAY+probe Ql (Unsp spec)Not detectedNormalNOT DETECTEDThe [facility] Comment on above:Result Comment: This test is not yet approved or cleared by the [place] FDA. When there are no FDA-approved or cleared tests available, and other criteria are met, FDA can make tests available under an emergency access mechanism called an Emergency Use Authorization (EUA). The EUA for this test is supported by the [place] of Health and Human Service's (HHS's) declaration that circumstances exist to justify the emergency use of in vitro diagnostics for the detection and/or diagnosis of the virus that causes COVID- 19. This EUA will remain in effect (meaning [...] of clinical signs and symptoms consistent with SARS-CoV-2.Performed By: #### CVDTBH #### [facility] [address] [place] [address] Dr. Medina Menchaca Vital Signs Date TimeVital SignValuePerforming UilmfulzwDlglaokq12-94-2502 10:33-0500Body gurkqs858.77 kgCorey Aysha DO Work Phone: [facility] HospitalByrmhxvreh20-81-0977 10:33-0500Diastolic blood mm[Hg]Jeremy Aysha DO Work Phone: [facility] HospitalEkldbfeqto09-28-6294 10:33-0500Systolic blood odsuszln219 mm[Hg]Jeremy Aysha DO Work Phone: [facility] HospitalFzwfjjrbvn65-16-1360 11:13-0400Body tuafvs505.93 kgCorey Aysha DO Work Phone: [facility] HospitalFemerjminf21-09-8176 14:31-0400Body fwdujc640.56 cmBenjamin Ball DO Work Phone: [facility]07-25-2025 14:31-0400 Body mass index (BMI) [Ratio]39.5 kg/v0Isvesdsq Ball DO Work Phone: [facility]07-25-2025 14:31-0400 Body uzqvle164.43 kgBenjamin Ball DO Work Phone: [facility]07-25-2025 14:31-0400 Diastolic blood jiezgapg95 mm[Hg]Krishna Ball DO Work Phone: [facility]07-25-2025 14:31-0400 Heart rate88 /minBenjamin Ball DO Work Phone: [facility]07-25-2025 14:31-0400 Respiratory rate12 /minBenjamin Ball DO Work Phone: [facility]07-25-2025 14:31-0400 Systolic blood ucjcmztn584 mm[Hg]Krishna Ball DO Work Phone: [facility]03-18-2025 13:58-0400 Body hdngyh749.21 kgCorey Aysha DO Work Phone: [facility] HospitalPozqeouudx60-55-6743 13:58-0400Diastolic blood texhrwyd40 mm[Hg]Jeremy Aysha DO Work Phone: [facility] HospitalHzmywardpo64-05-3368 13:58-0400Systolic blood rsdarcfg624 mm[Hg]Jeremy Aysha DO Work Phone: [facility] HospitalSvzdrvkttm06-25-6111 14:39-0500Body qykxmm397.56 cmThe [facility]02-28-2025 14:39-0500Body mass index (BMI) [Ratio]38.6 kg/p5SlqknrdwuThe [facility]02-28-2025 14:39-0500Body lnryku284.17 kgThe [facility]02-28-2025 14:39-0500Diastolic blood mm[Hg][facility]02-28-2025 14:39-0500 Heart rate87 /[facility]02-28-2025 14:39-0500 Respiratory rate12 /[facility]02-28-2025 14:39-0500 SaO2% (BldA) [Mass fraction]98 %[facility]02-28-2025 14:39-0500Systolic blood wuisyetk747 mm[Hg][facility] 07-16-2022 14:00-0500Body .64 cmBenjamin Ball Other [facility] Other 03-08-2023 14:00-0500Body mass index (BMI) [Ratio] 36.54 kg/c1Iduywwmf Ball Other [employer] Other 03-08-2023 14:00-0500Body rjydpv593.7 kgBenjamin Ball Other [facility] Other 03-08-2023 14:00-0500Diastolic blood uqwktpkd20 mm[Hg] Krishna Ball Other [employer] Other 03-08-2023 14:00-0500Respiratory rate12 /minBenjamin Ball Other [employer] Other 03-08-2023 14:00-0500Systolic blood mm[Hg] Krishna Ball Other [employer] Other Encounters Encounter DateEncounter TypeCare ProviderFacilityStart: 03-13-2025 End: 53-66-5259Eodzrx flowsheetCorey Aysha DO Work Phone: [facility]Start: 03-13-2025 End: 58-09-7818Rghbjw flowsheetCorey Aysha DO Work Phone: [facility]Start: 03-13-2025 End: 72-41-4259Eqfpykn encounter procedureCorey Aysha DO Work Phone: [facility] HealthcareStart: 03-13-2025 End: 92-07-7276Jrdnhlpq preventive med est patient 18-39 yrsCorey Aysha DO Work Phone: [facility] OBGYNComment on above:Well woman exam with routine gynecological examStart: 02-01-2025 End: 32-82-3889yubcpswufeNxgbr MMya LueFacility:[facility]vueStart: 02-01-2025 End: 37-24-8478Frrgtyl encounter procedureJulieth AndrewsMya Glaserandrez [facility] start: 01-23-2025 End: 35-14-6390uqllghcnfhFXIWH FAZIONot AvailableStart: 01-10-2025 End: 47-37-8294Koejmy flowsheetCorey Aysha DO Work Phone: [facility]YNStart: 01-10-2025 End: 01-79-2958Wmkjuz flowsheetCorey Aysha DO Work Phone: [facility]YNStart: 01-10-2025 End: 09-82-5117Pfgeyi outpatient visit 15 minutesCorey Aysha DO Work Phone: [facility]BGYNComment on above:Abnormal uterine bleeding (AUB); Abdominal crampingStart: 01-10-2025 End: 38-96-6018ghvfwufhlpBEBJX FAZIONot AvailableStart: 21-22-7204ojxhnwmbdl Julieth LueFacility:[facility]vueStart: 01-04-2025 End: 03-33-2848wttjpcbrxpIzrlad TannaFacility:FTMCStart: 01-04-2025 End: 27-88-8725Yaphsjv encounter procedureMichaelle Morales [facility] start: 12-28-2024 End: 21-32-1478Gkxaqbqol department patient visitBEWayneSHONDA E BALLProMedica Specialty Hospital of Southern Californiatart: 12-27-2024 End: 95-80-8060pqnemsaireLvnpczod Ball DO Work Phone: [facility] Work Phone: Start: 12-27-2024 End: 17-34-5721Lyvqzha encounter procedureBenjamin Ball DO-[facility] Work Phone: Start: 01-07-6985Vrb-patient / Non-visitBenjamin Ball DO-[facility] Work Phone: Start: 12-07-2024 End: 81-73-6464yuodruxeroAykaptzi BallFacility:[facility] Start: 98-32-0669Tph-patient / Non-visitBenjamin Ball DO-[facility] Work Phone: Start: 12-02-2024 End: 44-77-6655hjxgtwztbcObhdyvcx Ball DO Work Phone: [facility] Work Phone: Start: 12-02-2024 End: 55-89-0697Lnzhcyp encounter procedureBenjashonda Lott DO-[facility] Work Phone: Start: 08-12-2024 End: 42-97-2106Sjdkwycoi Result EncounterCorey Aysha DO Work Phone: noms External Department UnsolicitedStart: 08-12-2024 End: 52-99-4490Tvsbrunka Result EncounterCorey Aysha DO Work Phone: noms External Department UnsolicitedStart: 08-08-2024 End: 38-67-3332nhdoxwvzhhRdluhceu [facility] Work Phone: Start: 08-08-2024 End: 68-23-8078Miqctokz ReferredBenjamin Ball DO Work Phone: [facility]-LAB Path Spec Lynsey HospStart: 81-25-7338Kiz-patient / Non-visitBenjamin Ball DO Work Phone: [facility] Phys[facility] GroupLeg[facility] Work Phone: Start: 07-26-2024 End: 41-10-1796fgglunhultKHYIM FAZIONot AvailableStart: 07-26-2024 End: 29-10-9548Nfoluf outpatient visit 15 minutesCorey Aysha DO Work Phone: NOKF [facility] OBComment on above:Encounter for IUD removal; Encounter for IUD insertion; Pelvic cramping; Presence of intrauterine contraceptive device (IUD)Start: 07-26-2024 End: 72-21-4661qbqawoxktaLZRZQ FAZIONot AvailableStart: 07-08-2024 End: 43-46-1230gclvuerujqXnasbprzdWestern Reserve Hospital Work Phone: Start: 07-08-2024 End: 03-17-4860Owlqyma encounter procedureHighsmith-[facility] Work Phone: Start: 06-30-2024 End: 94-07-3677Fbbcyufie department patient visitBENJAMIN E BALLProMedica Concord HospitalStart: 06-25-2024 End: 67-00-3242ugydptxvdfDKMANGOP E BALLProMedica Concord HospitalStart: 06-23-2024 End: 58-76-4754udzdogykoaNodoawdqkWestern Reserve Hospital Work Phone: Start: 06-23-2024 End: 62-53-9570Vvlirjd encounter procedureHighsmith-Rainey Specialty Hospital Physician GroupDayton [facility]opathic [facility] Work Phone: Start: 79-97-7645Oyl-patient / Non-visitHighsmith-Rainey Specialty Hospital Physician GroupDayton [facility]opathic Hospital Work Phone: Start: 04-26-2024 End: 98-02-7763Ukdqlrlif department patient visitBENJAMIN E BALLProMedica Concord HospitalStart: 98-50-9657Fci-patient / Non-visitHighsmith-Rainey Specialty Hospital Physician GroupLegacy [facility] Work Phone: Start: 04-14-2024 End: 22-57-4864Jsvaxuh encounter procedureHighsmith-Rain[facility]ty Hospital [facility] Work Phone: Start: 08-31-2023 End: 43-98-5207gzlttlcqcaRU Susan Ramirez Work Phone: [facility] Work Phone: Start: 08-31-2023 End: 62-66-4094Fpqwphng ReferredMD Susan Ramirez Work Phone: [facility]-LAB Path Spec Point HospStart: 01-29-2023 End: 64-74-8098zaidibjgpmAylrrgay Ball Other [employer] Other Start: 31-23-7070Ehcyxx outpatient visit 15 minutes Krish[facility]ott Medical ClinicStart: 01-13-2023 End: 81-36-0801dnzwfzipzkHszeil Braun Other [employer] Other Start: 03-39-4340Xlrmdmged encounterMarcia Checo Lott Medical ClinicStart: 12-30-2022 End: 70-51-8207vbnjyrmxvzOrgzvxtg Ball Other [employer] Other Start: 18-53-9652Cqxwmkqad encounterBenjamin iDon Lott Medical ClinicStart: 08-20-2022 End: 94-30-9091jksvuuhoasCS DARIO HEAD .Facility:X7Kxdgy: 08-19-2022 End: 34-49-0722dqmyqtrywpChipaolq Ball Other [employer] Other Start: 26-21-2336Zahvarama encounterBenjashonda Lott Medical ClinicStart: 07-28-2022([facility]) [facility] Scheduled [facility]ott Medical ClinicStart: 07-28-2022 End: 43-46-3176hltavotnmtLgtvixkr Ball Other [employer] Other Start: 07-16-2022 End: 75-88-4541xvtgvqqmqeQqqkkkrb Ball Other [employer] Other Start: 41-40-0673Brxrge outpatient visit 15 minutes Krishna LottFPKan Lott Medical ClinicStart: 03-03-2022 End: 87-13-9546toticwbgfzBC KRISHNA LOTTFacility:Z0Owumh: 09-25-2021 End: 26-70-5426tykecoureaQA SUSAN Hudson MARKUSFacility:R5Vihqh: 09-04-2021 Gynecological examination abnormalBevahe Lott Other [facility] [employer] Other Start: 04-09-2017 End: 54-16-7697QecrofjcdvLUNYJRF PHYSICIANFacility:[facility] Procedures DateProcedureProcedure DetailPerforming ClinicianStart: 10-67-2282JDS CBC WITH AUTO DIFFCorey Aysha DO Work Phone: Start: 01-85-9815LHH REMOVALCorey Aysha DO Work Phone: Start: 35-37-3348Atwjq Strep (POC) screening Krishna Lott Other Antenatal screeningKrishna Lott Other Contraception care educationBevahe Lott Other Diabetes mellitus screeningBevahe Lott Other Insertion of intrauterine contraceptive deviceBevahe Lott Other End: 18-62-7695Fbyvzzhvh visitBevahe Lott Other Plan of Treatment DateCare ActivityDetailAuthorStart: 03-14-2026 End: 65-98-5292Ygzhpbs encounter xrzjarvsr34/04/2026 2:00 PM EST Procedure Visit [facility] Lynsey CABELLO [address] [place] [address] [place] [address] Jeremy Olmstead, DO [address] [place] [address] NOMFrandy [place] OBGYNStart: 02-20-2025 End: 74-51-8805Pxgouzl encounter iapdphbge47/13/2025 2:40 PM EDT Procedure Visit NOMFrandy CABELLO [address] [facility] [place] [address] Jeremy Olmstead, DO [address] [place] [address] NOMS Lynsey OBGYNStart: 01-23-2025 End: 98-72-4192Oeqzjljxjbds / ancillary services jnbmsodzgq82/15/2025 1:00 PM EDT Ancillary Procedure NOMFrandy CABELLO [address] [place] [address] [phone] Lynsey OBGYNStart: 01-10-2025 End: 99-48-4657DQ PelvisUS Pelvis w/ TV Imaging Routine Abnormal uterine bleeding (AUB) Abdominal cramping Expected: 01/10/2025, Expires: 07/10/2025[facility] Work Phone: comment on above:Expected: 01/10/2025, Expires: 07/10/2025Start: 01-10-2025 End: 42-16-6799Aihbcla encounter vzdedzfxj36/02/2025 10:50 AM EDT Office Visit NOMFrandy CABELLO [address] [facility] [place] [address] Jeremy Olmstead, DO [address] [place] [place], [place] [id number] ArrivedNOMS [place] OBGYNComment on above:ArrivedStart: 39-59-9566LbgdyLicking Memorial [facility] Start: 53-54-5357Aaejdqze identified in Urine by CultureUrine CultureKettering Healthtart: 43-70-0795Yvlfm cultureKettering Healthtart: 07-26-2024 End: 59-42-7546MS Abdomen Single viewXR abdomen 1 view Imaging Routine Pelvic cramping Presence of intrauterine contraceptive device (IUD) Expected: 07/26/2024, Expires: 07/26/2025[facility] Work Phone: comment on above:Expected: 07/26/2024, Expires: 07/26/2025omprehensive metabolic 2000 panel - Serum or PlasmaThe [facility]vue HospitalCytology Cervical or vaginal smear or scraping studyPap Smear Pathology and Cytology Routine Well woman exam with routine gynecological exam Ordered: 03/13/2025[facility] Work Phone: comment on above:Ordered: 03/13/2025Human papilloma virus DNA [Presence] in Unspecified specimen by Probe with amplificationHPV DNA probe, amplified Microbiology Routine Well woman exam with routine gynecological exam Ordered: 03/13/2025[facility] HospitalComment on above:Ordered: 03/13/2025 Urine [facility] Payers DatePayer CategoryPayerPolicy [id number] Health Insurance [id number]-uvz [id number] 2025Medicaid [id number] [id number] 2024Blue Cross Blue ShieldBCBS [id number] [id number] [id number] 2.16840.1.786614.3.57[id number] 2.16840.1.746892.3.57[id number] 2.0.1.484143.3.57[id number] 2.0.1.826185.3.57[id number] 2.0.1.047520.3.57[id number] 2.0.1.581197.3.57[id number] 2.0.1.036378.3.57[id number] 2.840.1.923743.3.57[id number] 2..1.068138.3.579.[id number] 2.0.1.563911.3.57[id number] 2.0.1.586229.3.57[id number] 2.840.1.996686.3.57[id number] 2.840.1.108434.3.57[id number] 2.16.840.1.202604.3.579.[id number] 2.16.840.1.305818.19 [id number] rt38v3y1-7535-835t-l0yk-[id number] 2.16.840.1.532[id number] 2.16.840.1.779037.3.579.2.531 Social History DateTypeDetailFacilitySex Assigned At [facility]art: 01-29-2023 End: 37-52-7707Hqjpfvv smoking status NHISSmoker (finding)[facility]: 16-98-7276Sew Assigned At [facility] Hospitaltart: 06-23-2024 End: 31-00-4366FhvSpvokl (finding)[facility] HospitalTobacco smoking status NHISTobacco smoking consumption unknownNOMS HealthcareStart: 15-70-0024Sqjvxh identityIdentifies as female gender (finding)[facility] Start: 40-39-1218Xyjqmk orientationHeterosexual (finding)[facility] HealthcareStart: 82-60-4773Ntifhhn smoking status NHISSmokes tobacco daily (finding)[facility]: 68-38-0237Rafxedo smoking statusHeavy tobacco smoker (finding)[facility] Hospitalexual OrientationExec[facility] start: 29-73-3862UbjKntxsiWIRP Healthcare Clinical Notes 07-16-2022 to 03-13-2025 Note Date & DgxvBrhoXunkrdds37-62-9487 History of Present illness Narrative* Charu Driscoll, YULIET - 03/13/2025 10:20 AM EST Reason for Appointment: Patient ID: Mayra Camarena is a 30 y.o. female who presents for Gynecologic Exam Patient presents today for Annual Exam. MEDICATIONS Current Outpatient Medications Medication Instructions citalopram (CELEXA) 40 mg, Daily ibuprofen 800 mg, Every 8 hours PRN ALLERGIES Allergies Allergen Reactions Doxycycline GI intolerance Other Reaction(s): Unknown Reaction [...] nursing note reviewed. Exam conducted with a software developer present. Vitals: There is no height or [...] without difficulty. Orders Placed This Encounter Procedures HPV DNA probe, amplified Follow Up: Patient is to return in one year for annual unless needed otherwise. Documented by Charu Driscoll LPN on behalf of: Jeremy Olmstead DO documented in this encounterOzarks Community HospitalKkxnsmibqm48-88-7205 History of Present illness Narrative* Gladis Almanza LPN - 01/10/2025 10:50 AM EDT Reason for Appointment: Patient ID: Mayra Camarena is a 29 y.o. female who presents for Vaginal Bleeding and Abdominal Cramping Patient presents today for Consult appointment. MEDICATIONS Current Outpatient Medications Medication Instructions citalopram (CELEXA) 40 mg, Daily ibuprofen 800 mg, Every 8 hours PRN Mirena (52 MG) 52 mg, Intrauterine, Continuous, IUD was placed during recent surgery on 08/12/2024 [facility]: [id number] Lot# [id number] Expiration: 09/2026 ALLERGIES Allergies Allergen Reactions Doxycycline [...] nursing note reviewed. Exam conducted with a software developer present. Vitals: There is no height or [...] of: Jeremy Olmstead DO documented in this encounterOzarks Community HospitalOylbfahukg70-49-3533 Hospital Discharge instructions Patient Education 01/04/2025 10:40:43 Hematuria, Adult Hematuria, Adult Hematuria is blood in the urine. Blood may be visible in the urine, or it may be identified with a test. This condition can be caused by infections of the bladder, urethra, kidney, or prostate. Otherpossible causes include: Kidney stones. Cancer of the [...] blood in your urine, even if it ispainless or the blood stops without treatment. Blood in the urine, when it happens and then stops and then happens again, can be a symptom of a very serious condition, including cancer. There is no pain in the initial stages of many urinary cancers. Follow these instructions at home: Medicines Take zkvd-axu-lnmoril and prescription medicines only as told by your health care provider. If you were prescribed an antibiotic medicine, take it as told by your health care provider. Do notstop taking the antibiotic even if you start to feel better. Eating and drinking Drink enough fluid to keep your urine pale yellow. It is recommended that you drink 3 4 quarts (2.83.8 L) a day. If you have been diagnosed with an infection, drinking cranberry juice in addition tolarge amounts of water is recommended. Avoid caffeine, [...] about any blood in your urine, even ifit is painless or the blood stops without treatment. Take izkp-sol-bibouln and prescription medicines only as told by your health care provider. Drink enough fluid to keep your urine pale yellow. This information is not intended to replace advice given to you by your health care provider. Make sure you discuss any questions you have with your health care provider. Document Revised: 12/26/2020 Document Reviewed: 12/26/2020 [employer] Patient Education 2023 [employer]. Follow Up Care 12/22/2024 14:27:43 With:Michaelle Morales PA-C, RJ Address: When: Unknown Comments:F/U pending cysto [facility] 08-27-2025 NotePatient Education Urology Hematuria, Adult Hematuria is blood in the urine. Blood may be visible in the urine, or it may be identified with a test. This condition can be caused by infections of the bladder, urethra, kidney, or prostate. Otherpossible causes include: ??? Kidney stones. ??? Cancer [...] blood in your urine, even if it ispainless or the blood stops without treatment. Blood in the urine, when it happens and then stops and then happens again, can be a symptom of a very serious condition, including cancer. There is no pain in the initial stages of many urinary cancers. Follow these instructions at home: Medicines ??? Take uoog-fkv-xbcaxjg and prescription medicines only as told by your health care provider. ??? If you were prescribed an antibiotic medicine, take it as told by your health care provider. Donot stop taking the antibiotic even if you [...] kidney stone, follow your health care provider's instructionsabout straining your urine to catch the stone. [...] Tell your health care provider about any changesor any new symptoms. ??? It is up [...] the blood stops without treatment. ??? Take rvll-ciu-iduhiax and prescription medicines only as told by your health care provider. ??? Drink enough fluid to keep your urine pale yellow. This information is not intended to replace advice given to you by your health care provider. Make sure you discuss any questions you have with your health care provider. Document Revised: 12/26/2020 Document Reviewed: 12/26/2020 [employer] Patient Education ? 2023 MemonicMyaMadison [facility] 12-02-2024 Evaluation note* Diagnosis Onset Date Resolution Status Admit Date Acute bronchitis due to other specified organisms acuteJuly 2024 2:19pmFatiguenoneactiveJuly 2024 2:19pmCough noneactiveJuly 2024 2:19pm [facility] Work Phone: 1(446) 576-225503-18-2025 History of Present illness Narrative* Gladis AlmanzaYULIET - 07/26/2024 1:30 PM EDTAssociated Order(s): IUD [...] nursing note reviewed. Exam conducted with a software developer present. Vitals: There is no height or [...] given: yes Instructions and paperwork completed: yes Mandan protocol: Patient states understanding of procedure being [...] of: Jeremy Olmstead DO documented in this encounterOzarks Community HospitalNuqteeiois74-10-4884 Evaluation note* Diagnosis Onset Date Resolution Status Admit Date Hematuria acuteFebruary 2024 11:30amAcute sinusitisnoneactiveFebruary 2024 11:30amDysurianoneactiveFebruary 2024 11:30amElevated BP without diagnosis of hypertensionacuteFebr2024 2:31pmElevated transaminase levelacute February 2024 2:31pmHematuriaacuteFebruary 2024 2:31pmObesityacute July 08, 2024 2:31pmSubmandibular lymphadenopathynoneactiveFebruary 2024 2:31pmOdynophagianoneactiveFebruary 2024 2:31pmStrep throatnoneactive July 08, 2024 2:31pm [facility] Work Phone: 1(416) 195-217912-05-2024 Evaluation note* Diagnosis Onset Date Resolution Status Admit Date Acute bronchitis due to other specified organisms acuteDecember 2023 9:39amHematuriaacuteDecember 2023 9:39amNausea & vomitingacuteDecember 2023 9:39amHematuriaacuteFebruary 2024 11:30am Acute sinusitisnoneactiveFebruary 2024 11:30amDysurianoneactiveFebruary 2024 11:30am [facility] Work Phone: 1(470) 925-741312-05-2024 Evaluation note* Diagnosis Onset Date Resolution Status Admit Date Acute bronchitis due to other specified organisms acutecember 2023 9:39amHematuriaacuteDecember 2023 9:39amNausea & vomitingacuteDecember 2023 9:39amHematuriaacuteFebruary 2024 11:30am Acute sinusitisnoneactiveFebruary 2024 11:30amDysurianoneactiveFebruary 2024 11:30amElevated transaminase levelacuteFebruary 2024 2:31pm HematuriaacuteFebruary 2024 2:31pmSubmandibular lymphadenopathynoneactive July 08, 2024 2:31pmOdynophagianoneactiveFebruary 2024 2:31pm Elevated liver enzymesnoneactiveFebruary 2024 2:31pmStrep throatnoneactive July 08, 2024 2:31pm [facility] Work Phone: 1(313) 126-284309-21-2023 Evaluation note* Encounter Date Diagnosis Assessment Notes Treatment Notes Treatment Clinical Notes Jan, Acute non-recurrent maxillary si nusitis (ICD-10 - J01.00) Instructed to use Robitussin or Mucinex for cough, saline or Flonase NS for congestion, Tylenol forpain and fever. Jan,Nicotine dependence, cigarettes, uncomplicated (ICD-10 - F17.210) This patient has been encouraged to quit tobacco use immediately. They are aware of the hazards associated with tobacco use, including but not limited to respiratory infections, vascular disease and cancers. May result in prolonged coughing [employer] Other 04-11-2023 Evaluation note* Encounter Date Diagnosis Assessment Notes Treatment Notes Treatment Clinical Notes Aug, Acute bronchitis due to other sp ecified organisms (ICD-10 - J20.8) [employer] Other 03-20-2023 Evaluation note* Encounter Date Diagnosis Assessment Notes Treatment Notes Treatment Clinical Notes Jul, Acute non-recurrent maxillary si nusitis (ICD-10 - J01.00) Instructed to use Robitussin or Mucinex for cough, saline or Flonase NS for congestion, Tylenol forpain and fever. [employer] Other 03-08-2023 Evaluation note* Encounter Date Diagnosis Assessment Notes Treatment Notes Treatment Clinical Notes Jul, Obesity (BMI 30-39.9) (ICD-10 - E66.9) This patient has been instructed on a low-fat, high-fiber diet. They are instructed to reduce calories, portion sizes and snacks. It is recommended that they exercise for 30 minutes, 3-5 times weekly. Jul,AD (generalized anxiety disorder) (ICD-10 - F41.1)Healthy diet, exercise and proper sleep habits Jul,Hx of major depression (ICD-10 - Z86.59)Initiate counseling for anxiety and depression [employer] Other Evaluation + Plan note Future Appointments Appointment Date:02/01/2025 01:30:00 PM Scheduled Provider:Maikol GARIBAY, Julieth Mayorga Location:[facility] Appointment Type:URO Procedure 15 min [facility] evaluation noteNo InformationNortGood Shepherd Specialty Hospital [employer] Other Evaluation noteNo assessment information available [facility] Work Phone: Evaluation note* Diagnosis Encounter for IUD removal Encounter for IUD insertion Insertion of intrauterine contraceptive device Pelvic cramping Presence of intrauterine contraceptive device (IUD) Presence of intrauterine contraceptive device Encounter for IUD removal documented in this encounter [facility] HealthcareEvaluation note* Diagnosis Abnormal uterine bleeding (AUB) Abdominal cramping Abdominal pain, unspecified site documented in this encounter [facility] HealthcareEvaluation note* Diagnosis Well woman exam with routine gynecological exam Routine gynecological examination documented in this encounter [facility] HealthcareHistory general Narrative - Reported* Type Description Date Medical History Abdominal discomfort in right lo wer quadrant Medical HistoryAcute left-sided low back pain with left-sided sciaticaMedical HistoryPain, female pelvicMedical HistoryBronchitisMedical HistoryChronic depressionMedical HistoryAcute URIMedical HistoryContact dermatitisMedical HistoryCOVIDMedical HistoryBruisingMedical HistoryFrequent headachesMedical HistoryWheezingSurgical HistoryT&ASurgical HistoryCESAREAN [id number] HistoryCESAREAN [id number] HistorySee past surgical hx [facility] [employer] Other Hospital course Narrative No data available for this section [facility] Hospital Discharge instructions No data available for this section [facility] progress note No data available for this section [facility] reason for referral (narrative)No reason for referral information availableWilson Health Work Phone: Summary Purpose Family History No Family History Records FoundNo Family History Records FoundNo Family History Records FoundNo Family History Records Found No data available for this section No Family History Records FoundNo Family History Records Found No data available for this section No Family History Records Found Advance Directives Advance Directive Response Recorded Date/ [...] and content) DATE CREATED AUTHOR 11/03/2017 [facility] DATE CREATED AUTHOR AUTHOR'S ORGANIZ ATION 09/10/2022 [facility] DATE CREATED AUTHOR AUTHOR'S ORGANIZ ATION 12/10/2024 [facility] DATE CREATED AUTHOR AUTHOR'S ORGANIZ ATION 12/30/2024 [facility] DATE CREATED AUTHOR AUTHOR'S ORGANIZ ATION 01/19/2025 [facility] DATE CREATED AUTHOR AUTHOR'S ORGANIZ ATION 01/25/2025 [facility] DATE CREATED AUTHOR AUTHOR'S ORGANIZ ATION 02/03/2025 [facility] REASON FOR VISIT (unrecogniz ed section and content) ReasonCommentsIUD removal/insertionReasonCommentsVaginal BleedingAbdominal CrampingReasonCommentsGynecologic Exam Care Teams (unrecognized sec tion and content) Team Status: Active Member Role Status Dates Susan Ramirez MD Primary Care Provider Active Team Status: Inactive Member Role Status Dates Susan Ramirez MD Primary Care Provider Active Start: August 31, 2023 End: August 30oreyessica VuoAttending ProviderActiveStart: August 31, 2023 End: August 31, 2023 Team Status: Active Member Role Status Dates Krishna Lott DO Primary Care Provider Active Team Status: Inactive Member Role Status Dates Susan Ramirez MD Primary Care Provider Active Start: April 14, 2024 End: April 14katina Lott DOAttending ProviderActiveStart: April 14, 2024 End: April 14, 2024 Team Status: Active Member Role Status Dates Krishna Lott DO Primary Care Provide r, Attending Provider Active Start: April 18, 2024 Team Status: Active Member Role Status Dates Krishna Lott DO Primary Care Provider Active Start: April 28, 2024 Hemalatha Martinez CMAAttending ProviderActiveStart: April 28, 2024 Team Status: Inactive Member Role Status Dates Krishna Lott DO Primary Care Provide r, Attending Provider Active Start: June 23, 2024 End: June 23, 2024 Team Status: Inactive Member Role Status Dates Krishna Lott DO Primary Care Provide r, Attending Provider Active Start: July 08, 2024 End: July 08, 2024Team MemberRelationshipSpecialtyStart DateEnd Date Krishna Lott MD [address] [place] [address] [facility] - [facility]Ad[facility]08/10/23 Team Status: Active Member Role Status Dates Krishna Lott DO Primary Care Provide r, Attending Provider Active Start: August 08, 2024 Team Status: Inactive Member Role Status Dates Krishna Lott DO Attending Provider Active Sta rt: August 08, 2024 End: August 08, 2024Team MemberRelationshipSpecialtyStart DateEnd Date Krishna Lott MD [address] [place] [phone] PCP - [facility]08/10/23 Team Status: Inactive Member Role Status Dates Krishna Lott DO Primary Care Provider Active Start: December 02, 2024 End: December 02katina Lott DOAttending ProviderActiveStart: December 02, 2024 End: December 02, 2024 Team Status: Active Member Role Status Dates Krihsna Lott DO Primary Care Provider Active Start: December 07, 2024 Krishna Lott DOAttending ProviderActiveStart: December 07, 2024 Team Status: Active Member Role Status Zulma Lott DO Attending Provider Active Sta rt: December 21, 2024 Team Status: Inactive Member Role Status Dates Krishna Lott DO Primary Care Provider Active Start: December 27, 2024 End: December 27katina Lott DOAttending ProviderActiveStart: December 27, 2024 End: December 27, 2024Team MemberRelationshipSpecialtyStart DateEnd Date Krishna Lott DO [address] [place] [address] PCP - [facility]08/10/23Team MemberRelationshipSpecialtyStart Date End Date Krishna Lott DO [address] [place] [phone] PCP - GeneralInternal Medicine08/10/23Team MemberRelationshipSpecialtyStart Date End Date Krishna Lott DO [address] [place] [phone] PCP - GeneralInternal Medicine08/10/23 Goals (unrecognized section and content) Goals may [...] BE BASED ON THE PRIMARY CLINICAL RECORDS. [employer] [facility]. provides no warranty or guarantee of the accuracy or completeness of information in this document.
--- OUTSIDE RECORDS SUMMARY | 2025-03-13 20:14 | XMS_ITS | Encounter Summary ---
Author Organization [facility] Address [address] [place] [address] Care Team Providers Care Histologic Aide Name Role Phone Krishna Hernandez DO Primary Care Provider [phone] Encounter Details DateTypeDepartmentCare Team (Latest Contact Info)Eegcybebdkn86/03/2025amboo flowsheet [facility] [address] [place] [address] [place] [address] Jacobo Olmstead DO [facility] [place], [place] [address] Social History Tobacco UseTypesPacks/DayYears UsedDateSmoking Tobacco: Never Assessed CommentsNoSex and Gender InformationValueDate RecordedSex Assigned at Twcagt6708/28/2023 5:09 PM EDTLegal QbiQrtaha79/15/2023 11:47 PM EDTGender LvdmjodyEwdssc91/19/2024 5:09 PM EDTSexual DhpgvbyqqijEtsabqnc39/19/2024 5:09 PM EDTdocumented as of this encounter Plan of Treatment DateTypeDepartmentCare Team (Latest Contact Info)Mrhztbmstny71/04/2026 2:00 PM ESTProcedure Visit [facility] [address] [place] [address] [place] [address] Jacobo Olmstead DO [facility] [place], [place] [address] documented as of this encounter Visit Diagnoses Not on filedocumented in this encounter Care Teams Team MemberRelationshipSpecialtyStart DateEnd Date Krishna Hernandez DO [address] [place] [phone] PCP - GeneralInternal Medicine08/10/23documented as of this encounter
--- OUTSIDE RECORDS SUMMARY | 2025-03-13 20:14 | XMS_ITS | Clinical Summary ---
Author Organization [facility] Address [address] [place] [address] Care Team Providers Care Human Resources Admin Name Role Phone Krishna Hernandez Primary Care Provider [phone] Allergies Active AllergyReactionsCriticalityNoted DateCommentsDoxycyclineGI intolerance 09/17/2023 Other Reaction(s): Unknown Reaction Medications MedicationSigDispense QuantityRefillsLast FilledStart DateEnd DateStatus ibuprofen 800 MG tablet Take 800 mg by mouth every 8 (eight) hours if xnsgyk895Active citalopram (CeleXA) 40 MG tablet Take 40 mg by mouth Daily5Active Levonorgestrel (Mirena, 52 MG,) 20 MCG/DAY intrauterine device 52 mg by Intrauterine route continuously IUD was placed during recent surgery on 08/12/2024 [facility]: 36960-989-37 Lot# [id number] Expiration: /DiscontinuedHospital, Clinic, or Other Facility Administered MedicationOrdered DoseRouteFrequencyStart DateEnd Date Status Levonorgestrel intrauterine device 52 mg Indications:Encounter for IUD nnjwiqbob63 tuOKReyiukjuqi66/18/202503/ Active Encounters DateTypeDepartmentCare VbfgIdtuajxacwk94/03/2025 10:20 AM ESTProcedure Visit NOMFrandy [address]LLO [address] [place] [address] Jacobo Olmstead, DO Well woman exam with routine gynecological exam03/13/2025amboo flowsheet [facility] [address] [place] [phone] Jacobo Olmstead DO 01/24/2025Telephone [facility]O [address] [place] [address] [place] [phone] Diane Santacruz MA 01/23/2025 1:00 PM EDTAncillary Procedure [facility]adi [facility] [address] [place] [address] [place] [phone] Abnormal uterine bleeding (AUB); Abdominal nvqueauo93/02/2025 10:50 AM EDTOffice Visit [place] [phone] Jacobo Olmstead DO Abnormal uterine bleeding (AUB); Abdominal krukthlt84/02/2025amboo flowsheet NOMFrandy CABELLO [address] [place] [address] [place] [address] Jacobo Olmstead DO from Last 3 Months Social History Tobacco UseTypesPacks/DayYears UsedDateSmoking Tobacco: Never Assessed CommentsNoSex and Gender InformationValueDate RecordedSex Assigned at Jlymrh5108/28/2023 5:09 PM EDTLegal IejVghzqb54/15/2023 11:47 PM EDTGender LldjdorpDiazfx70/19/2024 5:09 PM EDTSexual JfwuzkdfgqrVtnnxfxc84/19/2024 5:09 PM EDT Last Filed Vital Signs Vital SignReadingTime TakenCommentsBlood Idydpwta041/7003/13/2025 10:33 AM EST Pulse--Temperature--Respiratory Rate--Oxygen Saturation--Inhaled Oxygen Concentration--Nwvsub874 kg (242 lb)03/13/2025 10:33 AM ESTHeight--Body Mass Index-- Plan of Treatment DateTypeDepartmentCare Team (Latest Contact Info)Ywmoarjbrbz19/04/2026 2:00 PM ESTProcedure Visit MAHESH CABELLO [address] [place] [address] [place] [phone] Jacobo Olmstead DO [address] [facility] [place] [address] Procedures Procedure NamePriorityDate/TimeAssociated DiagnosisCommentsUS PELVIC COMPLETE W/ BOXirppkj53/15/2025 1:47 PM EDT Abnormal uterine bleeding (AUB) Abdominal cramping from Last 3 Months Results * US Pelvis w/ TV (01/23/2025 1:47 PM EDT)Anatomical RegionLateralityModality PelvisUltrasoundSpecimen (Source)Anatomical Location / LateralityCollection Method / VolumeCollection TimeReceived Time01/24/2025 12:48 PM EDT Impressions 01/24/2025 12:56 PM EDT 1. Left ovarian cyst. 2. No intramural mass. TRANSCRIBED BY: ? ELECTRONICALLY SIGNED BY: Josh Iyer MD Narrative 01/24/2025 12:56 PM EDT FINDINGS: Uterus ? 12.7 x 3.5 x 5.5 cm Endometrium ??4mm Right Ovary ?2.5 x 2.2 x 2.1 cm Left Ovary ?4.2 x 3.7 x 4.5 cm ??(cyst) Normal uterine orientation, slight retroflexion of the fundus. ??No myometrial mass. Normal endometrium. No pelvic fluid. ??Normal right ovary, several millimeter follicles. Left ovarian [...] BY: ELECTRONICALLY SIGNED BY: Josh Iyer MD Authorizing ProviderResult TypeResult StatusCorey Aysha DOIMG PROCEDURESFinal Result from Last 3 Months Insurance * Guarantor: Adrienne CamarenaAccount TypeRelation to PatientDate of BirthPhone Billing AddressPersonal/UtxtbiCryt1995 [address] [place] [address] Care Teams Team MemberRelationshipSpecialtyStart DateEnd Date Krishna Hernandez DO [address] [place] [phone] PCP - GeneralInternal Medicine08/10/23
--- OUTSIDE RECORDS SUMMARY | 2025-03-13 20:14 | XMS_ITS | Clinical Summary ---
Author Organization [facility] [email or web address] [facility] tem Address [facility] [place] [address] Care Team Providers Care Allergist/Immunologist Name Role Phone Krishna Hernandez DO Primary Care Provider [phone] Allergies Active AllergyReactionsCriticalityNoted HlqvYenedjlcYnyifuidxwe56/17/2024 Medications MedicationSigDispense QuantityRefillsLast FilledStart DateEnd DateStatus levonorgestrel (MIRENA) 20 mcg/24 hours (5 yrs) 52 mg IUD 1 each by intrauterine route once.Active ibuprofen (MOTRIN) 800 mg tablet Take 1 tablet (800 mg total) by mouth every 8 (eight) hours as needed for pain. 30 tablet 5Active Active Problems ProblemNoted DateDiagnosed DateStrep vzvdnk3506/26/2024Submandibular dnpzqmlehjbklpy55/16/2025Status txxjbuyyvtg03/11/1621Vwvvptedzils36/09/2017 Encounters DateTypeDepartmentCare DkinRqqfxptaltp58/20/2025 2:34 PM EDT - 12/28/2024 6:27 PM EDTEmergency [facility] [address] [place] [phone] Tarik Yoo MD Hematuria, unspecified type (Primary Dx) Discharge Disposition: Home12/28/2024Travelfrom Last 3 Months Family History Medical HistoryRelationNameCommentsNo Known ProblemsFatherHypertensionMother MigrainesMotherBreast cancerPaternal GrandmotherHypertensionSisterRelationName StatusCommentsFatherMotherPaternal GrandmotherSister Social History Tobacco UseTypesPacks/DayYears UsedDateSmoking Tobacco: Every DayCigarettes Smokeless Tobacco: Never Tobacco Cessation:Ready to Q uit: Not Asked; Counseling Given: Not Answered Alcohol UseStandard Drinks/WeekCommentsYes0 (1 standard drink = 0.6 oz pure alcohol)occasionallyAHC UtilitiesAnswerDate RecordedIn the past 12 months has the electric, gas, oil, or water company threatened to shut off services in your home?No06/26/2024PRAPARE - TransportationAnswerDate RecordedIn the past 12 months, has lack of transportation kept you from medical appointments or from getting medications?No06/26/2024In the past 12 months, has lack of transportation kept you from meetings, work, or from getting things needed for daily living?No06/26/2024Housing InstabilityAnswerDate RecordedAre you worried or concerned that in the next two months you may not have stable housing that you own, rent or stay in as a part of a household?No5ChildcareAnswer Date RaucdnndCvdkkzmolCxmtxqy43/12/2019EmploymentAnswerDate RecordedEmployment Ktphjzs0710/20/2018Hunger ScreeningAnswerDate RecordedWithin the past 12 months we worried whether our food would run out before we got money to buy more.Never True12/28/2024Within the past 12 months the food we bought just didn't last and we didn't have money to get more.Never True12/28/2024Purpose - LifeAnswerDate RecordedPurpose and direction in iernPzekrus11/11/2021CommentsNoSex and Gender InformationValueDate RecordedSex Assigned at BirthNot on fileLegal Sex Yvatof3307/04/2016 12:08 PM ESTGender IdentityNot on fileSexual OrientationNot on file Last Filed Vital Signs Vital SignReadingTime TakenCommentsBlood Ufexvflg188/7808 6:25 PM EDT Jwqnb6493 6:25 PM YHOGzyvvelxpyu68.9 ??C (98.5 ??F)12/28/2024 2:21 PM EDTRespiratory Pzfx612912/28/2024 6:25 PM EDTOxygen Lfjqneithk97%12/28/2024 6:25 PM EDTInhaled Oxygen Concentration--Pgchmq084.8 kg (231 lb)12/28/2024 2:21 PM BUZDlxxpi438.1 cm (5' 5 )12/28/2024 2:21 PM EDTBody Mass Index38.44012/28/2024 2:21 PM EDT Plan of Treatment Health MaintenanceDue DateLast DoneCommentsTobacco Mdplseezhh1995 Depression Qbpicpnlg70/03/2007du BMI Follow Up Plan2013DTaP,Tdap and Td Vaccines (1 - Tdap)2014Pap Smear01/12/2016Influenza Ztsfile5101/09/2025dult BMI Tsbamqncb12Tobacco Osszdhwfl76 Goals GoalPatient Goal TypeAssociated ProblemsRecent ProgressPatient-Stated?Author Home with self care Riddhi Barnes, ANTWON Note: Evaluation of progress towards goal: Patient plans to return home with self care. Medical Devices Not on file Procedures Procedure NamePriorityDate/TimeAssociated DiagnosisCommentsPOCT , URINE (NUCG)Bmtcbcj0212/28/2024 6:03 PM EDT POCT NURSING URINE MACROSCOPIC AAEfzquox14/20/2025 6:01 PM EDT ER EXTRA URINE OLCDGKIRRD27/20/2025 5:47 PM EDT ER EXTRA URINE FCGHKTXGNXZ90/20/2025 5:47 PM EDT ER EXTRA ZDQOIXKIF15/20/2025 5:[address] ABDOMEN AND PELVIS WO EVRHXZRA96/20/2025 4:06 PM EDT EXTRA TUBES SST APPVzbulej26/20/2025 2:50 PM EDT EXTRA TUBES BLUE ZVAHfrgskt13/20/2025 2:50 PM EDT EXTRA IREYCFvquhiv91/20/2025 2:50 PM EDT COMPREHENSIVE METABOLIC GFRBHOWPB36/20/2025 2:50 PM EDT CBC WITH AUTO TFOXYWPHXOPSIYUL51/20/2025 2:50 PM EDT from Last 3 Months Results * POCT , urine (12/28/2024 6:03 PM EDT)ComponentValueRef RangeTest MethodAnalysis TimePerformed AtPathologist SignatureBARRE CITY H[facility]ITAL Urine NegativeNegative, Pqyhiwzgqztke17/20/2025 5:57 PM EDTPMARTIN MEMORIAL HOSPITALpecimen (Source)Anatomical Location / LateralityCollection Method / VolumeCollection TimeReceived CtcwTgvqg14/20/2025 6:03 PM EDT 12/28/2024 5:57 PM EDT Narrative Authorizing ProviderResult TypeResult StatusTarik Yoo [facility]ITALOINT OF CARE TEST ORDERABLESFinal ResultPerforming OrganizationAddressCity/State/ZIP CodePhone Number [facility] [address] [place] [address], * (ABNORMAL) POCT Nursing Urine Macroscopic UA (12/28/2024 6:01 PM EDT)Component ValueRef RangeTest MethodAnalysis TimePerformed AtPathologist [facility] Urine Specific Gravity1.0201.010, 1.015, 1.020, 1.8833212/28/2024 5:51 PM EDT [facility] Urine Leukocyte EsteraseTrace(A) Rylhtebr91/20/2025 5:51 PM EDTPCLERMONT COUNTY HOSPITAL Urine ZvjilclSxcnjwmwRotbeiqc32/20/2025 5:51 PM EDTPCLERMONT COUNTY HOSPITAL Urine pH7.55.0, 6.0, 6.5, 7.0, 7.5, 8.0, 8.5, 5.5012/28/2024 5:51 PM EDTPCLERMONT COUNTY HOSPITAL Urine ProteinNegativeNegative 12/28/2024 5:51 PM EDTPCLERMONT COUNTY HOSPITAL Urine Glucose HygqfycrXzfxnsfi39/20/2025 5:[address] [facility] Urine YburqjjYmwsvajoUeatqtlj38/20/2025 5:51 PM [facility] Urine Urobilinogen1.0 E.U./dL12/28/2024 5:[address] [facility] Urine KfepviwivGvdawjljPvmdxlmy45/20/2025 5:[address] [facility] Urine Blood/HGBTrace(A)Negative 12/28/2024 5:51 PM EDBlanchard Valley Health System (Source) Anatomical Location / LateralityCollection Method / VolumeCollection Time Received FllmWotcd41/20/2025 6:01 PM EDT12/28/2024 5:51 PM EDT Narrative Authorizing ProviderResult TypeResult StatusPaul Pernell Yoo [facility]ITALOINT [facility] CARE TEST ORDERABLESFinal ResultPerforming OrganizationAddressCity/State/ZIP CodePhone Number [address] [place] [address], [place] * Extra Urine [place] (12/28/2024 5:47 PM EDT)ComponentValueRef RangeTest Method Analysis TimePerformed AtPathologist SignatureExtra TubeAuto Resulted 12/28/2024 7:01 PM [facility] (Source) Anatomical Location / LateralityCollection Method / VolumeCollection Time Received TimeUrineUrine specimen collection, clean catch / Ebhtumu7012/28/2024 5:47 PM EDT12/28/2024 6:39 PM EDT Narrative Authorizing ProviderResult TypeResult StatusAmber Joaquin TRAINING PROFESSIONAL-CNPURINE ORDERABLESFinal ResultPerforming OrganizationAddConemaugh Memorial Medical Center/[facility]/ZIP CodePhone Number [address] [address], [place] * Extra Urine Culture (12/28/2024 5:47 PM EDT)ComponentValueRef RangeTest Method Analysis TimePerformed AtPathologist SignatureExtra TubeAuto Resulted 12/28/2024 7:01 PM EDHolzer Hospitaln (Source) Anatomical Location / LateralityCollection Method / VolumeCollection Time Received TimeUrineUrine specimen collection, clean catch / Jycfzjs0712/28/2024 5:47 PM EDT12/28/2024 6:39 PM EDT Narrative Authorizing ProviderResult TypeResult StatusAmber Nuñez TRAINING PROFESSIONAL-CNPURINE ORDERABLESFinal ResultPerforming OrganizationAddressCity/State/ZIP CodePhone Number [address] [place] [address], [place] * Extra Urine (12/28/2024 5:47 PM EDT)ComponentValueRef RangeTest MethodAnalysis TimePerformed AtPathologist SignatureExtra TubeAuto Kyvkztyw81/20/2025 7:01 PM EDBlanchard Valley Health System (Source)Anatomical Location / LateralityCollection Method / VolumeCollection TimeReceived TimeUrineUrine specimen collection, clean catch / Eagyenz0812/28/2024 5:47 PM EDT12/28/2024 6:39 PM EDT Narrative Authorizing ProviderResult TypeResult StatusAmber Joaquin SULLIVANN-CNPURINE ORDERABLESFinal ResultPerforming OrganizationAddressCity/State/ZIP CodePhone Number [address] [place] [address], * CT abdomen and pelvis without contrast (12/28/2024 4:06 PM EDT)Anatomical RegionLateralityModalityBody, Abdomen, Body CoveraN/AComputed Tomography Specimen (Source)Anatomical Location / LateralityCollection Method / Volume Collection TimeReceived Time12/28/2024 4:10 PM EDT Narrative 12/28/2024 4:14 PM EDT History: ??Kidney stones suspected right-sided pain.. Exam/Technique: ??Contiguous axial images are obtained of the abdomen pelvis without intravenous contrast. ??Coronal and sagittal reconstructions were performed and reviewed. Automatic dose exposure reduction technique utilized. Comparison: ??None. Findings: ?? Acute findings:No free fluid or free air. [...] mass or fluid collection. Incidental findings: IMPRESSION: ?? No definitive acute findings. No obvious obstructive [...] Jin Salas MD on 12/28/2024 4:14 PM Authorizing ProviderResult TypeResult StatusAmber Joaquin TRAINING PROFESSIONAL-CNPIMG CT ORDERABLESFinal Result * SST TOP (12/28/2024 2:50 PM EDT)ComponentValueRef RangeTest MethodAnalysis TimePerformed AtPathologist SignatureExtra TubeAuto Wiwulcid30/20/2025 4:02 PM EDBlanchard Valley Health System (Source)Anatomical Location / LateralityCollection Method / VolumeCollection TimeReceived TimeBloodVenous blood / Tzcacmv8212/28/2024 2:50 PM EDT12/28/2024 3:05 PM EDT Narrative Authorizing ProviderResult TypeResult StatusAmber Joaquin TRAINING PROFESSIONAL-CNPLAB BLOOD ORDERABLESFinal ResultPerforming OrganizationAddressCity/State/ZIP CodePhone Number [address] [place] [address], * Light Blue Top (12/28/2024 2:50 PM EDT)ComponentValueRef RangeTest Method Analysis TimePerformed AtPathologist SignatureExtra TubeAuto Resulted 12/28/2024 4:02 PM EDBlanchard Valley Health System (Source) Anatomical Location / LateralityCollection Method / VolumeCollection Time Received TimeBloodVenous blood / Xwvmwtq9912/28/2024 2:50 PM EDT12/28/2024 3:05 PM EDT Narrative Authorizing ProviderResult TypeResult StatusAmber Joaquin SULLIVANN-CNPLAB BLOOD ORDERABLESFinal ResultPerforming OrganizationAddressCity/State/ZIP CodePhone Number [address] [place] [address], * CBC auto differential (12/28/2024 2:50 PM EDT)ComponentValueRef RangeTest MethodAnalysis TimePerformed AtPathologist SignatureWBC8.54 - 11 x10E9/L 12/28/2024 3:18 PM EDWOOD COUNTY HOSPITALRBC Count4.903.8 - 5.2 X10E12/L12/28/2024 3:18 PM [facility] Vpfszikouf51.511.7 - 15.5 g/dL12/28/2024 3:18 PM EDWOOD COUNTY HOSPITALHematocrit42.435 - 47 %12/28/2024 3:18 PM EDWOOD COUNTY HOSPITALMCV8780 - 100 fL12/28/2024 3:18 PM EDWOOD COUNTY HOSPITALMCH29.627 - 34 pg12/28/2024 3:18 PM EDTPBLANCHARD VALLEY HEALTH SYSTEMMCHC34.232 - 36 g/dL12/28/2024 3:18 PM EDTPBLANCHARD VALLEY HEALTH SYSTEMRDW13.211.5 - 15 %12/28/2024 3:18 PM EDTPBLANCHARD VALLEY HEALTH SYSTEMPlatelet Nnvjf870055 - 450 X10E9/L12/28/2024 3:18 PM EDT [facility]MPV8.17 - 12 fL12/28/2024 3:18 PM EDT [facility]ITALNeutrophils %69.6%12/28/2024 3:18 PM EDT [facility]ITALLymphocytes %24.4%12/28/2024 3:18 PM EDT [facility]ITALMonocytes %4.6%12/28/2024 3:[address] [facility]OSPITALEosinophils %1.1%12/28/2024 3:18 PM EDT [facility]ITALBasophils %0.3%12/28/2024 3:18 PM EDT [facility]ITALNeutrophils Absolute (A)5.91.5 - 6.6 10*3/uL12/28/2024 3:18 PM EDTPBLANCHARD VALLEY HEALTH SYSTEMLymphocytes Absolute2.11.0 - 3.5 10*3/12/28/2024 3:18 PM EDTPFIRELANDS REG[facility]US HOSPITALMonocytes Absolute0.40.0 - 0.9 10*3/uL12/28/2024 3:18 PM EDTPBLANCHARD VALLEY HEALTH SYSTEMEosinophils Absolute0.10.0 - 0.4 10*3/12/28/2024 3:18 PM EDTPBLANCHARD VALLEY HEALTH SYSTEMBasophils Absolute0.00.0 - 0.2 10*3/uL12/28/2024 3:18 PM EDTPBLANCHARD VALLEY HEALTH SYSTEMDifferential TypeAUTOMATED QDKLMFWBOHXE71/20/2025 3:18 PM EDTPMARTIN MEMORIAL HOSPITALpecimen (Source)Anatomical Location / LateralityCollection Method / VolumeCollection TimeReceived TimeBloodVenous blood / UnknownVenipuncture / Vohpkeq0012/28/2024 2:50 PM EDT12/28/2024 3:04 PM EDT Narrative Authorizing ProviderResult TypeResult StatusAmber Joaquin TRAINING PROFESSIONAL-CNPLAB BLOOD ORDERABLESFinal ResultPerforming OrganizationAddressCity/State/ZIP CodePhone Number [facility] [address] [place] [address], * (ABNORMAL) Comprehensive metabolic panel (12/28/2024 2:50 PM EDT)Component ValueRef RangeTest MethodAnalysis TimePerformed AtPathologist SignatureSODIUM 838322 - 146 mmol/L12/28/2024 3:25 PM EDWO[facility] POTASSIUM3.73.5 - 5.0 mmol/L12/28/2024 3:25 PM EDWO[facility] COUNTY HOSPITALCHLORIDE10698 - 109 mmol/L12/28/2024 3:25 PM EDWOOD COUNTY HOSPITALCARBON VDUGJZL1377 - 32 mmol/L12/28/2024 3:25 PM EDWOOD COUNTY HOSPITALANION GAP65 - 15 mmol/L12/28/2024 3:25 PM EDT [facility]ITALBLOOD UREA PUSBLAVS79 - 23 mg/dL12/28/2024 3:25 PM [facility] HOSPITALCREATININE0.570.40 - 1.00 mg/dL 12/28/2024 3:25 PM EDWOOD COUNTY HOSPITALComment:METHOD TRACEABLE TO IDMS RJHRJGHPCHLMNOU757(H)65 - 99 mg/dL12/28/2024 3:25 PM EDT [facility]ITALCALCIUM8.98.5 - 10.5 mg/dL12/28/2024 3:25 PM EDWOOD COUNTY HOSPITALTOTAL PROTEIN7.36.0 - 8.0 g/dL 12/28/2024 3:25 PM EDWOOD COUNTY HOSPITALALBUMIN4.03.2 - 5.3 g/dL12/28/2024 3:25 PM [facility]OSPITALALKALINE LKNYUESDSIK3571 - 130 U/L12/28/2024 3:25 PM [facility]OSPITALAST30<=41 U/L12/28/2024 3:25 PM [facility] ALT46(H)<=31 U/L12/28/2024 3:25 PM [facility] BILIRUBIN,TOTAL0.90.3 - 1.2 mg/dL12/28/2024 3:25 PM [facility] HOSPITALEGFR Non-Race Dependent>90>=60 ml/min/1.73sq.m012/28/2024 3:25 PM [facility]OSPITALComment: eGFR not reported due to non-numeric value for Creatinine. EGFR not calculated due to patient's gender not being defined. Reported eGFR is based on the CKD-EPI 2020 equation that does not use a race coefficient. Specimen (Source)Anatomical Location / LateralityCollection Method / Volume Collection TimeReceived TimeBloodVenous blood / UnknownVenipuncture / Unknown 12/28/2024 2:50 PM EDT12/28/2024 3:04 PM EDT Narrative Authorizing ProviderResult TypeResult StatusAmber Joaquin TRAINING PROFESSIONAL-CNPLAB BLOOD ORDERABLESFinal ResultPerforming OrganizationAddressCity/State/ZIP CodePhone Number [facility] [address] [place] [address], from Last 3 Months Insurance [address] [place] [address] Advance Directives * Full Code (Latest Code Status on File) Date ActivatedDate InactivatedComments06/26/2024 12:22 AM06/28/2024 4:31 PM * Full Code Date ActivatedDate ZrqjesmzbnlQtjymsmk71/11/2017 4:16 AM03/23/2017 8:13 PM Care Teams Team MemberRelationshipSpecialtyStart [place] [address] [place] [address] PCP - General06/30/24
[2025-03-17 10:08] LABS: Age Gdln ACOG Testing Note (.); IGP, Aptima HPV, rfx 16/18,45 Note (.)
== END 2025-03-13 20:08 | disposition home or self-care (01) ==
LOC: LAB 20:07
PROVIDERS: Internal Medicine; PCP Internal Medicine; Visit Provider Obstetrics & Gynecology
DX: Z01.419 Encounter for gynecological examination (general) (routine) without abnormal findings (principal)
CPT/HCPCS: 87624; 88175

== ENCOUNTER 2025-05-09 10:06 | Outpatient (OUT) | payer BC, MEDICAID, SELFPAY ==
--- OUTSIDE RECORDS SUMMARY | 2025-04-25 05:52 | XMS_ITS | Continuity of Care Document ---
Demographics Address [address] [place] [address] Phone Preferred Language Sami Marital Status Unknown Voodoo Affiliation Unknown Race White Additional Race(s) Unavailable Ethnic Group Not or Lati no Author Organization [facility] Address [address] [place] [address] Phone Care Team Providers Care Historiographer Name Role Phone Krishna Hernandez DO Primary Care Provider Cali Bar MD Attending Provider Jackie Nielson APRN Attending Provider Hemalatha Martinez CMA Attending Provider UnavailKrishna Banks DO Attending Provider Care Teams Patient Care Team Team Status: Active Member Role/Relationship Status Dates Krishna Hernandez DO Primary Care Provider Active Visit Care Team Team Status: Active Member Role/Relationship Status Dates Krishna Hernandez DO Primary Care Provider Active Start: March 13, 2025 David Warner ProviderActiveStart: March 13, 2025 Visit Care Team Team Status: Inactive Member Role/Relationship Status Dates Krishna Hernandez DO Primary Care Provider Active Start: April 12, 2025 End: April 12Sabi Kearney ProviderActiveStart: April 12, 2025 End: April 12, 2025 Visit Care Team Team Status: Inactive Member Role/Relationship Status Dates Jackie Nielson APRN Attending Provider Active S tart: April 12, 2025 End: April 12, 2025 Visit Care Team Team Status: Active Member Role/Relationship Status Dates Hemalatha Martinez CMA Attending Provider Active Start: April 19, 2025 Patient Care Team Team Status: Inactive Member Role/Relationship Status Dates Krishna Hernandez DO Primary Care Provider Active Start: April 25, 2025 End: April 25katina Hernandez DOAttpaul ProviderActiveStart: April 25, 2025 End: April 25, 2025 Chief Complaint and Reason for Visit Chief Complaint Admit Date Dysuria April 12, 2025 1 1:16am r30.0 April 12, 2025 1 1:45am Amb Documentation April 19, 2025 10:02am ER F/U, [facility], UTI April 102024 10:00am Reason for Visit Admit Date Dysuria April 12, 2025 1 1:16am Allergies, Adverse Reactions, Alerts Allergen Type Severity Reaction Last Updated Verified Status doxycycline Allergy Unknown Vomiting April 25, 2025 10:02am Yes Active Social History Smoking Status Status Start Date End Date Date of Observa tion Smokes tobacco daily (finding) April 12, 2025 11:28am Observation Status Observation Response Date of Response Legal Sex Female (finding) Sex Assigned At BirthFemaleSept1994 Problems Active Problems Problem Diagnosis/Recorded Date Onset Date Status C omments Elevated transaminase level July 08, 2024 3:18pm Unk nown Active HematuriaDecember 2023 10:34amUnknownActiveDysuriaDecember 2024 11:43amUnknownActiveElevated BP without diagnosis of hypertensionFebruary 2024 3:30pmUnknownActiveAcute bronchitis due to other specified organisms April 14, 2024 10:34amUnknownActiveNausea & vomitingDecember 2023 10:35amUnknownActiveObesityFebruary 2024 3:30pmUnknownActive Inactive/Resolved Problems Problem Diagnosis/Recorded Date Onset Date Status C omments Lab test positive for detection of COVID-19 virus April 30, 2020 5:03pm Unknown Resolved Probl em List clean-up per request of Phys. EHR Cmte Major depressive disorder, recurrent April 30, 2020 11:38am Unknown Resolved Problem List clean-up per request of Phys. EHR Cmte Suicidal ideation April 30, 2020 5:56am Unknown Re solved Problem List clean-up per request of Phys. EHR Cmte Migraines April 30, 2020 5:02pm Unknown Resolved Problem List clean-up per request of Phys. EHR Cmte Medications Medication Status Dose Units Route Directions Qty Days Refills S tart Date Stop Date End Date Reason(s) Instructions Adherence Citalopram 40 mg tablet Discontinued 40 MG PO Every morning 30 30 2 October 07, 2024 9:06am November 08, 2024 11:53amCitalopram 40 mg ehlgpwXtcospjddrcw65CESXKzlds92267Xoxr 1st, 2025 11:53amDecember 2024 10:39amCiprofloxacin Hcl (Cipro) 250 mg upnpypXejjceuzvwkk993TUTOWqcsh vtmgi60YdczxujpApril 16, 2025 12:00amIncember 2024 10:03amNicotine (Polacrilex) 2 mg JifNmlytqrpdofk1ZONCNVHYW8B as needed for Nicotine Zrcukscz162Cxtuuris 23rd, 2020 12:00am[facility] 2023 9:54am Citalopram 20 mg XkvxiyUwxxymeaplim92TVWMNrpba lwszaao74393Pxbkxart2019 12:00am[facility] 2023 9:54amMelatonin 5 mg BmgrrqUbgsxfntuwug3XKXJJtyzq at bedtime as needed for Yiuudocb242Uxwtxoed 23rd, 2020 12:00amDeceer 2023 9:54amCefdinir 300 mg wpalkinHuqeqhjvndek702SXMTRrmix bdtzs7493Jzbkxpmw2023 12:00amFebruary 2024 2:36pmOndansetron 4 mg tablet,disintegrating Mezicfcrnfun7WDPLKjhsx 8 hours as needed for nausea and mpbubicx9913Bgbkmbuu 5th, 2024 12:00amFebruary 2024 2:36pmAmoxicillin 875 mg tabletDiscontinued 875MGPOTwice vnhgg97489Hwyyofts 2024 12:00amFebruary 2024 2:41pm Citalopram 20 mg pziatsSczvljloktbl15ZZWEDxtep ukizyhg86598Kup2024 2:58pm October 07, 2024 9:06amAmoxicillin 875 mg acouceRpidnqkceoms460ETNSCnske bozyn1716 December 01, 2024 11:00pmAugust 2024 4:08pmPrednisone 20 mg tablet Mhwlbodgwwyz19FRJMQy Ffgdjvjm900Nizl 2024 11:00pmDecember 27, 2024 4:08pm1 tab bid w/ food x 3 days, then qd w/ food x 3 daysSulfamethoxazole-Trimethoprim 800-160 mg kvdieeAsjpklybgljt0JHLTAQavne qesnq5958Hpfdas2024 11:00pm April 12, 2025 11:18amLevonorgestrel (Mirena) 21 mcg/24hr (up to 8 yrs) 52 mg intrauterine deviceActiveINTRAUTERIDe2024 12:00amComplies with drug therapyCephalexin 500 mg mikmvmeWqxqjalvttdt489QGUCTkujx wmkyp8366Ekinjggt2024 12:00amDeceer 2024 10:02amCitalopram 20 mg ohrvzfRzcxcq40EOCP Enwaq96759Tbtvonsx2024 10:38amComplies with drug therapyBupropion Hcl 150 mg tablet extended release 24 qdBrjiyd568NPBFXyuto ovesumn48546Rusgmqgy2024 12:00amComplies with drug therapy Procedures Procedure Date Performed Status Urine Culture April 12, 2025 completed Relevant Diagnostic Tests and/or Laboratory Data Laboratory Results Test Collection Date/Time Result Date/Time Result Interpretation Reference Range Result Comment Performing Site Reference Lab Test Patient Age March 13, 2025 1:03pm March 13, 2025 1:03pm Note .TESTS RESULT FLAG UNITS REF RANGE LAB Clinician Provided Cytology Information Source.............Cervix;Endocervix No. of containers..01 ThinPrep VialAge Magalio EILEENOG Maeve... 30-65 01 FLAG LEGEND: L-Low Normal,H-High Normal,LL-Alert Low,HH-Alert High <-Panic Low,>-Panic High,A- Abnormal,AA-Critical Abnormal Performed a t:01 =G [facility] [address] [place] [address] Nicole Prescott MD, Kgyzz ColorDecember 2024 11:31amDecember 2024 11:38amyellowHPV High Risk Other CommentNov2024 1:03pmNovember 2024 1:03pmNote.TESTS RESULT FLAG UNITS REF RANGE LAB DIAGNOSIS: 02 NEGATIVE FOR INTRAEPITHELIAL LESION OR MALIGNANCY. THIS SPECIMEN WAS RESCREENED PART OF OUR LUBRICATING MACHINE TENDER PROGRAM.Specimen adequacy: 02 Satisfactory for evaluation. Endocervical and/or squamous metaplastic cells (endocervical component) are present.Performed by: 02 Yeimy Cornejo, Customer Advocacy Manager (ASC)QC reviewed by: 02 Riddhi Wagner, Customer Advocacy Manager (ASCP). 02Note: Note 02 The Pap smear is a screening test designed to aid in the detection of premalignant and malignant conditions of the uterine cervix. It is not a diagnostic procedure and should not be used as the sole means of detecting cervical cancer. Both false-positive and false-negative reports do occur.Test Methodology: Note 02 This liquid based ThinPrep(R) pap test was interpreted using the Gowalla(R) Neuralieve(TM) Cervical Algorithm whole slide imaging system.HPV Genotype Reflex Note 02 Criteria not met, HPV Genotype not performed. FLAG LEGEND: L-Low Normal,H-High Normal,LL-Alert Low,HH-Alert High <-Panic Low,>- Panic High,A-Abnormal,AA-Critical Abnormal Performed at:[address] [address] Nicole Prescott MD, Gqgfr AppearanceDecember 2024 11:31amDecember 2024 11:38amclearHPV Genotype SourceNovember 2024 1:03pmNovember 2024 1:03pmNegativeNegativeThis nucleic acid amplification test detects fourteen high-risk HPV types (16,18,31,33,35,39,45,51,52,56,58,59,66,68)without differentiation.Performed at: =[address] [place], [place] [id number] Director: Nicole Prescott MD, Phone: [phone] at: [address] [id number] Director: Nicole Prescott MD, Phone: [phone] Glucose (UA)April 12, 2025 11:31amDecemb2024 11:38amnegativeUrine BilirubinDecemb2024 11:31amDecember 2024 11:38amnegativeUrine KetonesDmber 2024 11:31am April 12, 2025 11:38amnegativeUrine Specific GravityDece2024 11:31amDecember 2024 11:38am1.020Urine Occult BloodDecember 2024 11:31amDecember 2024 11:38amtrace-intactUrine pHDece2024 11:31am April 12, 2025 11:38am7.5Urine ProteinDecember 2024 11:31amDecember 2024 11:38amnegativeUrine UrobilinogenDece2024 11:31amDecemb2024 11:38am0.2EU/dLUrine NitriteApril 12, 2025 11:31amDecemb2024 11:38amNegativeUrine Leukocyte EsteraseApril 12, 2025 11:31amDecemb2024 11:38amtrace Microbiology Results Procedure Source Result Collection Date/Time Result Date/Time Result Comment Performing Site Urine Culture Urine Staphylococcus saprophyticus April 12, 2025 11:45am April 15, 2025 9:51am [facility] [id number] [address] [place] [id number] Vital Signs Vital Reading Result Reference Range Collection Date/Time Height 64 [in_i] April 12, 2025 11:58dmJmxmhz833.13 kgApril 12, 2025 11:25amBody Shehedbfnnq13.2 [degF]97.6-99.0April 12, 2025 11:25amHeart Rate96 /cdp14-684 April 12, 2025 11:25amRespiratory rate16 /esi86-33BepfkaqoApril 12, 2025 11:25am Oxygen saturation by Pulse khypzgin03 %95-100April 12, 2025 11:25amBP Bymfqvbe608 mm[Hg]100-140April 12, 2025 11:25amBP Qegmjnxuf77 mm[Hg]60-100 April 12, 2025 11:25amBMI (Body Mass Index)42.0 kg/r1OyizqrzvApril 12, 2025 11:42oiZpdzmp95 [in_i]April 25, 2025 10:58hcWybbwh913.35 kgce2024 10:08amHeart Rate82 /pnl95-975KbrzrtzyApril 25, 2025 10:08amRespiratory rate12 /ufr36-24MtdzpsgkApril 25, 2025 10:08amBP Ubtcunxv128 mm[Hg]100-140April 25, 2025 10:08amBP Ckkommawe79 mm[Hg]60-100April 25, 2025 10:08amBMI (Body Mass Index)42.1 kg/s7Msqdulwm 2024 10:08am Advance Directives Advance Directive Response Recorded Date/ Time Advance Directives No April 11:35pm Insurance Providers Guarantor Adrienne Camarena Address [address] [place] [address]Vjmwjts Info.Home Phone: Coverage Status Update:2025 Payer Group Member ID Coverage Type Subscriber Relationship to Subscriber Effective Date Expiration Date [place] Children [id number] G Ott Id: [id number] [facility] [address] [address] Home Phone: [employer] [id number] G Ott Id: [id number] [address] [place] [address] [facility] Phone: [facility] [id number] G Ott Id: [id number] [facility] [address] [address] Home Phone: [facility] Id: [id number] G Ott Id: [id number] [facility] [address] [address] Home Phone: Self Encounters Encounter Location(s) Arrival/Admit Date Discharge/Departure Date Discharge/Departure Disposition Provider(s) Non-patient / Non-visit -[facility] N ovember 2024 1:03pm Cali Bar MDDeparted Physician/Provider Office Visit-[facility] 2024 11:16amDe2024 11:49amDischarged to home care or self care (routine discharge)Andrews Gonzalez APRNDeparted Referred-Lab [facility] 2024 11:45amDece2024 11:46amDischarged to home care or self care (routine discharge)Andrews Gonzalez-patient / Non-visit -[facility] 2024 10:02amCatodell Martinez CMADeparted Physician/Provider Office Visit-[facility] 10[facility]am[facility] 2024 10:45amDischarged to home care or self care (routine discharge)Krishna Hernandez DO Recent Diagnosis Onset Date Admit Date Dysuria Unknown April 12 11:16am Assessments Diagnosis Onset Date Resolution Status Admit Date [facility] 11:16am Plan of Treatment Author Jackie Nisreen [facility] 20[facility] 11:57amPjames is a pleasant, cooperative 30-year-old female who presents with the above complaints. She is afebrile. Vitals are hemodynamically stable. POC UA noted trace leukocytes and trace intact occult blood otherwise negative. She had similar results noted at the urology office however was asymptomatic at that time with urinary symptoms. She is symptomatic today. Will treat with Keflex 500 mg by mouth twice a day for the next 7 days while awaiting urine culture. Patient aware POC/treatment subject change based on results of the culture. She is to continue to rest and push fluids. May take zsrp-axe-joqzwbc Azo as needed for burning with urination however not to exceed more than 6 doses in total. Follow-up with PCP, urology, [facility]IVER as scheduled. Go to the ER if symptoms persist or worsen or you develop any fever, chills, nausea, vomiting, diarrhea, abdominal pain or flank pain. Patient verbalizes understanding is agreeable to plan of care at this time. Future Tests Future scheduled test information is unavailable Pending Tests Pending diagnostic test information is unavailable Future Visits Future appointment information is unavailable Future Procedures Future procedure information is unavailable Future Medications Future medication information is unavailable Patient Instructions Patient instructions are unavailable
--- OUTSIDE RECORDS SUMMARY | 2025-05-09 10:13 | XMS_ITS | Clinical Summary ---
Author Organization Respectance tem Address [id number] [address] [place] [address] Care Team Providers Care Basket Sorter Name Role Phone Krishna Hernandez DO Primary Care Provider [phone] Allergies Active AllergyReactionsCriticalityNoted UcwhPljbnjlkHyhzpbqhllj93/17/2024 Medications MedicationSigDispense QuantityRefillsLast FilledStart DateEnd DateStatus levonorgestrel (MIRENA) 20 mcg/24 hours (5 yrs) 52 mg IUD 1 each by intrauterine route once.Active ibuprofen (MOTRIN) 800 mg tablet Take 1 tablet (800 mg total) by mouth every 8 (eight) hours as needed for pain. 30 tablet 5Active citalopram (CeleXA) 40 mg tablet Take 1 tablet (40 mg total) by mouth in the morning.5Active sucralfate (CARAFATE) 1 gram tablet Take 1 tablet (1 g total) by mouth in the morning and 1 tablet (1 g total) at noon and 1 tablet (1 g total) in the evening and 1 tablet (1 g total) before bedtime. 120 tablet 5Active CEPHalexin (KEFLEX) 500 mg capsule Take 1 capsule (500 mg total) by mouth 3 (three) times a day for 7 days. 21 capsule Expired Active Problems ProblemNoted DateDiagnosed DateStrep xlcqja0506/26/2024Submandibular vonuvydirskhbld53/16/2025Status qqigseaeowp51/11/0963Ekdqkhwixmkk26/09/2017 Encounters DateTypeDepartmentCare CzqmVvrvayjkrxj74/10/2025Results Follow-Up [facility] [address] [facility] [place] [id number] Maria Alejandra Jimenez RN Urine Culture Urine, Clean Catch Ulsgsssbx98/08/2025 8:12 PM EST - 04/17/2025 10:32 PM ESTEmergency [facility] [address] [place] [id number] Tarik Yoo MD Abdominal pain, unspecified abdominal location (Primary Dx); Cystitis Discharge Disposition: Homefrom Last 3 Months Family History Medical HistoryRelationNameCommentsNo Known ProblemsFatherHypertensionMother MigrainesMotherBreast cancerPaternal GrandmotherHypertensionSisterRelationName StatusCommentsFatherMotherPaternal GrandmotherSister Social History Tobacco UseTypesPacks/DayYears UsedDateSmoking Tobacco: Every DayCigarettes Smokeless Tobacco: Never Tobacco Cessation:Ready to Q uit: Not Asked; Counseling Given: Not Answered Alcohol UseStandard Drinks/WeekCommentsYes0 (1 standard drink = 0.6 oz pure alcohol)occasionallyAHC UtilitiesAnswerDate RecordedIn the past 12 months has the [employer], gas, oil, or water [employer] threatened to shut off services in your [...] stay in as a part of a household?No06/26/2024hildcareAnswer Date EapkwvlaLcbqenlfrZzbeqac20/12/2019EmploymentAnswerDate RecordedEmployment Oztcuwn7410/20/2018Hunger ScreeningAnswerDate RecordedWithin the past 12 months we worried whether our food would run out before we got money to buy more.Never True12/28/2024Within the past 12 months the food we bought just didn't last and we didn't have money to get more.Never True12/28/2024Purpose - LifeAnswerDate RecordedPurpose and direction in abfbLisuyza72/11/2021CommentsNoSex and Gender InformationValueDate RecordedSex Assigned at BirthNot on fileLegal Sex Dbfecn6307/04/2016 12:08 PM ESTGender IdentityNot on fileSexual OrientationNot on file Last Filed Vital Signs Vital SignReadingTime TakenCommentsBlood Ezixjzoy569/9304/17/2025 10:31 PM EST Xqeut307204/17/2025 10:31 PM EBHUcokerqrgaa86.7 ??C (98 ??F)04/17/2025 6:02 PM EST Respiratory Edta380406/18/2024 10:31 PM ESTOxygen Zhrasscmru00%04/17/2025 10:31 PM ESTInhaled Oxygen Concentration--Ckkiey943.3 kg (230 lb)04/17/2025 6:02 PM EST Eckuzz933.6 cm (5' 4 )04/17/2025 6:02 PM ESTBody Mass Index39.4804/17/2025 6:02 PM EST Plan of Treatment Health MaintenanceDue DateLast DoneCommentsTobacco Jnllruakjl1995 Depression Odptzwhrl98/03/2007dult BMI Follow Up Plan2013DTaP,Tdap and Td Vaccines (1 - Tdap)2014Influenza Steuhgo1501/09/2025dult BMI Screening Tobacco Yhgojkdqo15Pap Smear03/13/2028 03/13/2025 Goals GoalPatient Goal TypeAssociated ProblemsRecent ProgressPatient-Stated?Author Home with self care Riddhi Barnes RN Note: Evaluation of progress towards goal: Patient plans to return home with self care. Medical Devices Not on file Procedures Procedure NamePriorityDate/TimeAssociated DiagnosisCommentsCT ABDOMEN AND PELVIS W SPLDIBPP23/08/2025 9:18 PM EST POCT , URINE (NUCG)Avdasec3104/17/2025 8:36 PM EST POCT NURSING URINE MACROSCOPIC KDDyddgge86/08/2025 8:35 PM EST ER EXTRA URINE ZPUOYUJUSK75/08/2025 8:29 PM EST ER EXTRA URINE EYFSWDOQDXV62/08/2025 8:29 PM EST ER EXTRA XPXRNXNNX37/08/2025 8:29 PM EST URINE CULTURESTAT Add-on04/17/2025 8:29 PM EST EXTRA TUBES BLUE KEQWrxgqht69/08/2025 6:25 PM EST EXTRA GZUKKYstcnrd55/08/2025 6:25 PM EST ETLSIYUTKOUMK68/08/2025 6:25 PM EST LACTATE W/ MWMDGVGTFY45/08/2025 6:25 PM EST QSRCHPFQZK98/08/2025 6:25 PM EST COMPREHENSIVE METABOLIC PVDLJEKTX47/08/2025 6:25 PM EST CBC WITH AUTO ZWGOKQPAJJDRHUIP72/08/2025 6:25 PM EST from Last 3 Months Results * CT abdomen and pelvis with contrast (04/17/2025 9:18 PM EST)Anatomical Region LateralityModalityBody, Abdomen, Body CoveraN/AComputed TomographySpecimen (Source)Anatomical Location / LateralityCollection Method / VolumeCollection TimeReceived Time04/17/2025 9:50 PM EST Narrative 04/17/2025 9:[address] ABDOMEN AND PELVIS W CONT CLINICAL INFORMATION: abdominal pain. COMPARISON: 12/28/2024. PROCEDURE: Routine CT abdomen and pelvis obtained after the uncomplicated intravenous administration of contrast material. Multiplanar reformats obtained from the axial data. All CT scans at this facility use dose modulation, iterative reconstruction, and/or weight based dosing when appropriate to reduce radiation dose to as low as reasonably achievable. FINDINGS: Lung bases are normal. The liver is unremarkable. Gallbladder is normal. Spleen and pancreas are normal. Adrenal glands are unremarkable. Kidneys are normal. Bladder contains fluid and is grossly normal. There is some bladder wall thickening. No bowel obstruction. The appendix is normal. Intrauterine device. Right ovarian cyst or follicle, 2.6 cm, no concerning features. Aorta is normal. No enlarged lymph nodes. No new osseous abnormalities. IMPRESSION: * ??No evidence of obstruction or inflammation in the bowel. * ??Bladder wall thickening which could relate to cystitis in the proper setting, correlate with urinalysis. * ??Please see above for further details. Finalized by Jose Phoenix MD on 04/17/2025 9:54 PM Procedure Note Jose Phoenix MD - 04/17/2025 CT ABDOMEN AND PELVIS W CONT CLINICAL INFORMATION: abdominal pain. COMPARISON: 12/28/2024. PROCEDURE: Routine CT abdomen and pelvis obtained after the uncomplicated intravenous administration of contrast material. Multiplanar reformats obtained fromthe axial data. All CT scans at this facility use dose modulation,iterative reconstruction, and/or weight based dosing when appropriate toreduce radiation dose to as low as reasonably achievable. FINDINGS: Lung bases are normal. The liver is unremarkable. Gallbladder is normal.Spleen and pancreas are normal. Adrenal glands are unremarkable. Kidneysare normal. Bladder contains fluid and is grossly normal. There is somebladder wall thickening. No bowel obstruction. The appendix is normal. Intrauterine device. Right ovarian cyst or follicle, 2.6 cm, no concerning features. Aorta is normal. No enlarged lymph nodes. No new osseousabnormalities. IMPRESSION: * No evidence of obstruction or inflammation in the bowel. * Bladder wall thickening which could relate to cystitis in the propersetting, correlate with urinalysis. * Please see above for further details. Finalized by Jose Phoenix MD on 04/17/2025 9:54 PM Authorizing ProviderResult TypeResult StatusAmber Joaquin RUBBER OFF-CNPIMG CT ORDERABLESFinal Result * POCT , urine (04/17/2025 8:36 PM EST)ComponentValueRef RangeTest MethodAnalysis TimePerformed AtPathologist SignaturePO Urine NegativeNegative, Fhivfaerbkhth05/08/2025 8:42 PM ESTPROUCSF MEDICAL CENTERpecimen (Source)Anatomical Location / LateralityCollection Method / VolumeCollection TimeReceived ZqopGsmhh01/08/2025 8:36 PM EST 04/17/2025 8:42 PM EST Narrative Authorizing ProviderResult TypeResult StatusTarik Yoo [facility]ENTEROINT OF CARE TEST ORDERABLESFinal ResultPerforming OrganizationAddressCity/State/ZIP CodePhone Number [facility] [address] [place] [address], * (ABNORMAL) POCT Nursing Urine Macroscopic UA (04/17/2025 8:35 PM EST)Component ValueRef RangeTest MethodAnalysis TimePerformed AtPathologist SignatureNOR[facility]TRY [facility] Urine Specific Gravity1.0251.010, 1.015, 1.020, 1.6682104/17/2025 8:36 PM EST [facility] Urine Leukocyte EsteraseSmall(A) Lpjtwupr72/08/2025 8:36 PM ESTPROSHARP [facility] Urine NmsltghIqnovedkRtskwjkq00/08/2025 8:36 PM ESTPROSHARP [facility] Urine pH7.05.0, 6.0, 6.5, 7.0, 7.5, 8.0, 8.5, 5.512 8:36 PM ESTPROMEDIADVENTIST HEALTH SIMI VALLEY Urine Mafowzj054 mg/dL(A)Negative 04/17/2025 8:36 PM ESTPROMEDIADVENTIST [facility]ALTH [facility] Urine Glucose HemoexifEvojauwg91/08/2025 8:36 PM ESTPROMEDIADVENTIST [facility]ALTH [facility] Urine GowqfieEwotlwibGehjwghm24/08/2025 8:36 PM ESTPROMEDIADVENTIST [facility] Urine Urobilinogen0.2 E.U./dL04/17/2025 8:36 PM ESTPROMEDIADVENTIST [facility]ALTH [facility] Urine QpytebgicZpadbjhxMryndaeq98/08/2025 8:36 PM ESTHOCK[facility]LEY [facility] Urine Blood/HGBTrace(A)Negative 04/17/2025 8:36 PM ESTProtestant Hospital (Source) Anatomical Location / LateralityCollection Method / VolumeCollection Time Received ZaygPnpfr78/08/2025 8:35 PM EST04/17/2025 8:36 PM EST Narrative Authorizing ProviderResult TypeResult StatusPaul R Walker [facility]ENTEROINT OF CARE TEST ORDERABLESFinal ResultPerforming OrganizationAddressCity/State/ZIP CodePhone Number [address] [place] [address], * Extra Urine [place] (04/17/2025 8:29 PM EST)ComponentValueRef RangeTest Method Analysis TimePerformed AtPathologist SignatureExtra TubeAuto Resulted 04/17/2025 10:01 PM [facility] (Source) Anatomical Location / LateralityCollection Method / VolumeCollection Time Received TimeUrineUrine specimen collection, clean catch / Clgilyo0704/17/2025 8:29 PM EST04/17/2025 9:54 PM EST Narrative Authorizing ProviderResult TypeResult StatusAmber Joaquin RUBBER OFF-CNPURINE ORDERABLESFinal ResultPerforming OrganizationAddressty/[facility]/ZIP CodePhone Number [address] [place] [address], [place] * Extra Urine Culture (04/17/2025 8:29 PM EST)ComponentValueRef RangeTest Method Analysis TimePerformed AtPathologist SignatureExtra TubeAuto Resulted 04/17/2025 10:01 PM ESTProtestant Hospital (Source) Anatomical Location / LateralityCollection Method / VolumeCollection Time Received TimeUrineUrine specimen collection, clean catch / Vkwninc3904/17/2025 8:29 PM EST04/17/2025 9:54 PM EST Narrative Authorizing ProviderResult TypeResult StatusAmber Joaquin RUBBER OFF-CNPURINE ORDERABLESFinal ResultPerforming OrganizationAddressty/State/ZIP CodePhone Number [address] [place] [address], [place] * Extra Urine (04/17/2025 8:29 PM EST)ComponentValueRef RangeTest MethodAnalysis TimePerformed AtPathologist SignatureExtra TubeAuto Borqtzyp16/08/2025 10:01 PM ESTPROMEDISTANFORD UNIVERSITY MEDICAL CENTERpecimen (Source)Anatomical Location / LateralityCollection Method / VolumeCollection TimeReceived TimeUrineUrine specimen collection, clean catch / Yoplsqe6004/17/2025 8:29 PM EST04/17/2025 9:54 PM EST Narrative Authorizing ProviderResult TypeResult StatusAmber Nuñez RUBBER OFF-CNPURINE ORDERABLESFinal ResultPerforming OrganizationAddressCity/State/ZIP CodePhone Number [address] [place] [address], [place] * Urine Culture Urine, Clean Catch [place] (04/17/2025 8:29 PM EST)Component ValueRef RangeTest MethodAnalysis TimePerformed AtPathologist SignatureCULTURE RESULTS>100,000 ORGANISMS/mL NORMAL UROGENITAL FLORA04/19/2025 8:16 AM EST [facility] LABORATORYSpecimen (Source)Anatomical Location / LateralityCollection Method / VolumeCollection TimeReceived TimeUrineUrine specimen collection, clean catch / Jivtjkz3504/17/2025 8:29 PM EST04/17/2025 9:54 PM EST Narrative Authorizing ProviderResult TypeResult StatusPaul R Walker MDMICROBIOLOGY - GENERAL ORDERABLESFinal ResultPerforming OrganizationAddressCity/State/ZIP Code Phone Number [facility] [address] [place] [address], * Light Blue Top (04/17/2025 6:25 PM EST)ComponentValueRef RangeTest Method Analysis TimePerformed AtPathologist SignatureExtra TubeAuto Resulted 04/17/2025 8:02 PM ESTPROMEDISTANFORD UNIVERSITY MEDICAL CENTERpecimen (Source) Anatomical Location / LateralityCollection Method / VolumeCollection Time Received TimeBloodVenous blood / Eywjgoh4404/17/2025 6:25 PM EST04/17/2025 6:37 PM EST Narrative Authorizing ProviderResult TypeResult StatusPaul R Walker MDLAB BLOOD ORDERABLES Final ResultPerforming OrganizationAddressCity/State/ZIP CodePhone Number [address] [place] [address], [place] * Lactate w/ Reflex (04/17/2025 6:25 PM EST)ComponentValueRef RangeTest Method Analysis TimePerformed AtPathologist SignatureLACTATE W/REFLEX1.30.4 - 2.0 mmol/L106/18/2024 6:57 PM ESTDETWILER MEMORIAL HOSPITALpecimen (Source)Anatomical Location / LateralityCollection Method / VolumeCollection TimeReceived TimeBloodVenous blood / UnknownVenipuncture / Xqnamsc2904/17/2025 6:25 PM EST04/17/2025 6:35 PM EST Narrative [facility] - 04/17/2025 6:57 PM EST Result did not trigger repeat Lactate, re-order if needed. Authorizing ProviderResult TypeResult StatusLisa GORMAN BLOOD ORDERABLESFinal ResultPerforming OrganizationAddressCity/State/ZIP CodePhone Number [address] [place] [address], [place] * (ABNORMAL) CBC auto differential (04/17/2025 6:25 PM EST)ComponentValueRef RangeTest MethodAnalysis TimePerformed AtPathologist YirsdztmdPQW40.04 - 11 10^904/17/2025 6:46 PM [facility]ITALRBC Count4.93 3.8 - 5.2 10^12/04/17/2025 6:46 PM [facility] Nezamwvejk79.711.7 - 15.5 g/dL04/17/2025 6:[address] [facility] MEDICAL CENTERHematocrit42.735 - 47 %04/17/2025 6:46 PM ESTPROSHARP CHULA VISTA MEDICAL CENTERMCV8780 - 100 fL04/17/2025 6:46 PM ESTPROSHARP CHULA VISTA MEDICAL CENTERMCH29.927 - 34 pg04/17/2025 6:46 PM ESTPRONOVATO COMMUNITY HOSPITALHC34.532 - 36 g/dL04/17/2025 6:46 PM ESTPROSHARP CHULA VISTA MEDICAL CENTERRDW12.911.5 - 15 %04/17/2025 6:46 PM ESTPROSHARP CHULA VISTA MEDICAL CENTERPlatelet Nebek569961 - 450 10^04/17/2025 6:[address] [facility]ENTERMPV7.87 - 12 fL04/17/2025 6:46 PM EST [facility]ENTERNeutrophils %70.5%04/17/2025 6:[address] [facility]ENTERLymphocytes %22.9%04/17/2025 6:46 PM EST [facility]ENTERMonocytes %4.3%04/17/2025 6:46 PM EST [facility] HOSPITALEosinophils %1.5%04/17/2025 6:[address] [facility]ENTERBasophils %0.8%04/17/2025 6:[address] [facility] CENTERNeutrophils Absolute (A)7.1(H)1.5 - 6.6 10^04/17/2025 6:46 PM ESTPROSHARP CHULA VISTA MEDICAL CENTERLymphocytes Absolute2.31.0 - 3.5 ^04/17/2025 6:46 PM ESTPROSHARP CHULA VISTA MEDICAL CENTERMonocytes Absolute0.40.0 - 0.9 ^04/17/2025 6:46 PM ESTPROMEDICENTRAL VALLEY GENERAL HOSPITALEosinophils Absolute0.20.0 - 0.4 10^04/17/2025 6:[address] [facility] CENTERBasophils Absolute0.10.0 - 0.2 ^04/17/2025 6:[address] [facility]INCENT MEDICAL CENTERDifferential TypeAUTOMATED UPJXMXCZSADM29/08/2025 6:46 PM ESTDETWILER MEMORIAL HOSPITALpecimen (Source)Anatomical Location / LateralityCollection Method / VolumeCollection TimeReceived TimeBloodVenous blood / UnknownVenipuncture / Dlwfmms4404/17/2025 6:25 PM EST04/17/2025 6:36 PM EST Narrative Authorizing ProviderResult TypeResult StatusAmber Nuñez RUBBER OFF-CNPLAB BLOOD ORDERABLESFinal ResultPerforming OrganizationAddressty/State/ZIP CodePhone Number [address] [place] [address], [place] * Magnesium (04/17/2025 6:25 PM EST)ComponentValueRef RangeTest MethodAnalysis TimePerformed AtPathologist SignatureMAGNESIUM2.11.8 - 2.6 mg/dL04/17/2025 7:01 PM ESTPROTorrance Memorial Medical Center (Source)Anatomical Location / LateralityCollection Method / VolumeCollection TimeReceived Time BloodVenous blood / UnknownVenipuncture / Coplsis5104/17/2025 6:25 PM EST 04/17/2025 6:36 PM EST Narrative Authorizing ProviderResult TypeResult StatusAmber Nuñez RUBBER OFF-CNPLAB BLOOD ORDERABLESFinal ResultPerforming OrganizationAddressty/State/ZIP CodePhone Number [address] [place] [address], [place] * (ABNORMAL) Lipase (04/17/2025 6:25 PM EST)ComponentValueRef RangeTest Method Analysis TimePerformed AtPathologist BuqodeuezKCTVHX80(H)17 - 40 U/L106/18/2024 6:58 PM ESTProtestant Hospital (Source)Anatomical Location / LateralityCollection Method / VolumeCollection TimeReceived Time BloodVenous blood / UnknownVenipuncture / Qrdzzoe1904/17/2025 6:25 PM EST 04/17/2025 6:36 PM EST Narrative Authorizing ProviderResult TypeResult StatusAmber Nuñez RUBBER OFFThe MicroCNPLAB BLOOD ORDERABLESFinal ResultPerforming OrganizationAddressty/State/ZIP CodePhone Number [address] [place] [address], [place] * (ABNORMAL) Comprehensive metabolic panel (04/17/2025 6:25 PM EST)Component ValueRef RangeTest MethodAnalysis TimePerformed AtPathologist SignatureSODIUM 411794 - 146 mmol/L106/18/2024 7:01 PM [facility] POTASSIUM4.23.5 - 5.0 mmol/L106/18/2024 7:01 PM [facility]ITALCHLORIDE10598 - 109 mmol/L106/18/2024 7:01 PM [facility]PITALCARBON AIJTJLC4539 - 32 mmol/L106/18/2024 7:01 PM [facility]PITALANION GAP95 - 15 mmol/L106/18/2024 7:01 PM [facility]OSPITALBLOOD UREA IOVENQPX169 - 23 mg/dL04/17/2025 7:01 PM [facility]ITALCREATININE0.800.40 - 1.00 mg/dL 04/17/2025 7:01 PM [facility]ITALComment:METHOD TRACEABLE TO IDMS BMBFRUXRZOFRMPL541(H)65 - 99 mg/dL04/17/2025 7:01 PM [facility]OSPITALCALCIUM9.28.5 - 10.5 mg/dL04/17/2025 7:01 PM [facility]OSPITALTOTAL PROTEIN7.66.0 - 8.0 g/dL 04/17/2025 7:01 PM [facility]PITALALBUMIN4.23.2 - 5.3 g/dL04/17/2025 7:01 PM [facility]ITALALKALINE LSRFHINTIOP9452 - 130 U/L106/18/2024 7:01 PM [facility]AST21<=41 U/L106/18/2024 7:01 PM [facility] ALT26<=31 U/L106/18/2024 7:01 PM [facility] BILIRUBIN,TOTAL0.30.3 - 1.2 mg/dL04/17/2025 7:01 PM [facility]OSPITALEGFR Non-Race Dependent>90>=60 ml/min/1.73sq.m12/12/2024 7:01 PM ESTPROMEDICA LONG BEACH MEMORIAL MEDICAL CENTERComment: eGFR not reported due to non-numeric value for Creatinine. Reported eGFR is based on the CKD-EPI 2020 equation that does not use a race coefficient. Specimen (Source)Anatomical Location / LateralityCollection Method / Volume Collection TimeReceived TimeBloodVenous blood / UnknownVenipuncture / Unknown 04/17/2025 6:25 PM EST04/17/2025 6:36 PM EST Narrative Authorizing ProviderResult TypeResult StatusAmber Joaquin RUBBER OFF-CNPLAB BLOOD ORDERABLESFinal ResultPerforming OrganizationAddressCity/State/ZIP CodePhone Number [facility] [address] [place] [address], from Last 3 Months Insurance Advance Directives * Full Code (Latest Code Status on File) Date ActivatedDate InactivatedComments06/26/2024 12:22 AM06/28/2024 4:31 PM * Full Code Date ActivatedDate BqrfhxiwprvPercbhsx35/11/2017 4:16 AM03/23/2017 8:13 PM Care Teams Team MemberRelationshipSpecialtyStart DateEnd Date Krishna Hernandez DO [address] [place] [address] PCP - General06/30/24
--- OUTSIDE RECORDS SUMMARY | 2025-05-09 10:13 | XMS_ITS | Clinical Summary ---
Author Organization [facility] Address [address] [place] [address] Care Team Providers Care Rigging Worker Name Role Phone Krishna Hernandez Primary Care Provider [phone] Allergies Active AllergyReactionsCriticalityNoted DateCommentsDoxycyclineGI intolerance 09/17/2023 Other Reaction(s): Unknown Reaction Medications MedicationSigDispense QuantityRefillsLast FilledStart DateEnd DateStatus ibuprofen 800 MG tablet Take 800 mg by mouth every 8 (eight) hours if [id number] citalopram (CeleXA) 40 MG tablet Take 40 mg by mouth Daily5ActiveHospital, Clinic, or Other Facility Administered MedicationOrdered DoseRouteFrequencyStart DateEnd DateStatus Levonorgestrel intrauterine device 52 mg Indications:Encounter for IUD myWHGqfaswyjys05/18/61810907/25/2029 Active Encounters DateTypeDepartmentCare SjqcNztgznuddmw91/03/2025 10:20 AM ESTProcedure Visit [facility] [address] [place] [id number] Jeremy Olmstead DO Well woman exam with routine gynecological exam5Bamboo flowsheet [facility] [address] [place] [address] Jeremy Olmstead DO 5Clinisync Result Encounter [facility] Unsolicited Jeremy Olmstead DO from Last 3 Months Social History Tobacco UseTypesPacks/DayYears UsedDateSmoking Tobacco: Never Assessed CommentsNoSex and Gender InformationValueDate RecordedSex Assigned at Kaxtcx4308/28/2023 5:09 PM EDTLegal KnqLyposb89/15/2023 11:47 PM EDTGender OldhofogFxazoa33/19/2024 5:09 PM EDTSexual AvetnshthfuYfwllqxe75/19/2024 5:09 PM EDT Last Filed Vital Signs Vital SignReadingTime TakenCommentsBlood Wsxgjdnu417/7003/13/2025 10:33 AM EST Pulse--Temperature--Respiratory Rate--Oxygen Saturation--Inhaled Oxygen Concentration--Uqjiye128 kg (242 lb)03/13/2025 10:33 AM ESTHeight--Body Mass Index-- Plan of Treatment DateTypeDepartmentCare Team (Latest Contact Info)Shydxptqqgi37/04/2026 2:00 PM ESTProcedure Visit [facility] [address] [place] [phone] Jeremy Olmstead DO [address] [place] [address] Procedures Procedure NamePriorityDate/TimeAssociated DiagnosisCommentsPAP SMEARRoutine 03/13/2025 10:30 AM EST Well woman exam with routine gynecological exam HPV DNA PROBE, TXZKIBCQTWwtfrgv45/03/2025 10:30 AM EST Well woman exam with routine gynecological exam US PELVIS W/ KUCDPFXIGADJ19/14/2025 8:14 AM EDT from Last 3 Months Results * HPV DNA probe, amplified (03/13/2025 10:30 AM EST)Specimen (Source)Anatomical Location / LateralityCollection Method / VolumeCollection TimeReceived Time SwabCervical swab / Yzthmpu0103/13/2025 10:30 AM EST Narrative Authorizing ProviderResult TypeResult StatusCorey Aysha DOL MICROBIOLOGY - GENERAL ORDERABLESFinal ResultPerforming OrganizationAddressCity/State/ZIP Code Phone Number EXTERNAL LAB * Pap Smear (03/13/2025 10:30 AM EST)Specimen (Source)Anatomical Location / LateralityCollection Method / VolumeCollection TimeReceived TimeSwabCervical swab / Oubderh6503/13/2025 10:30 AM EST Narrative Authorizing ProviderResult TypeResult StatusCorey Aysha DOLAB CYTOLOGY ORDERABLESFinal ResultPerforming OrganizationAddressCity/State/ZIP CodePhone Number EXTERNAL LAB * US PELVIS W/ TRANSVAGINAL (02/21/2025 8:14 AM EDT)Anatomical RegionLaterality ModalityOtherSpecimen (Source)Anatomical Location / LateralityCollection Method / VolumeCollection TimeReceived Time02/21/2025 8:14 AM EDT Narrative 02/21/2025 8:16 AM EDT [facility] ?[address] ? [place] [address] ? Ultrasound Report ? Signed Patient: CARMEN CAMARENA G ? MR#: [id number] : 1995 ?Acct:[id number] Age/Sex: 30 / F ?ADM Date: 02/21/25 Loc: US Attending Dr: Jeremy Olmstead D.O. Ordering Physician: Jeremy Olmstead D.O. Date of Service: 02/21/25 Procedure(s): US pelvis w/ transvaginal Accession Number(s): [id number] cc: Krishna Hernandez D.O.; Jeremy Olmstead D.O. ? [facility] ? [address] [facility] ? [place] [address] ? Patient Name: CARMEN CAMARENA MRN: [id number] ? date: 1995 ?Sex: F Assigned Patient Location: US Current Patient Location: US Accession/Order Number: [id number] Exam Date: 02/21/2025 ??07:09 ?Report Date: 02/21/2025 ??08:14 At the request of: JEREMY ??AYSHA ??DO Procedure: ??US pelvis w/ transvaginal ULTRASOUND PELVIS WITH TRANSVAGINAL CLINICAL DATA: Pelvic pain and abdominal uterine bleeding. ??IUD. COMPARISON: CT 12/21/2024 Real-time ultrasound evaluation the pelvis was performed utilizing both a transabdominal and transvaginal approach. TRANSABDOMINAL: The urinary bladder is empty, limiting evaluation. ??The uterus is slightly retroverted. ??Estimated uterine size is approximately 8.5 x 4.8 x 4.6 cm. ??No focal myometrial abnormalities are noted. ??There is an echogenic structure within the endometrial canal correlating with the reported IUD. Both ovaries are identified. ??The right measures 3.9 x 2.4 x 3.6 cm. ??The left ovary measures 3.8 x 2.8 x 2.6 cm. ??There are no dominant adnexal cysts. There is documentation of ovarian blood flow. TRANSVAGINAL: Transitional imaging was performed to better evaluate the uterus and adnexa. ??By this approach, no focal myometrial abnormalities are seen. The endometrial lining is estimated at 4-5 mm in thickness. ??The IUD appears to be in appropriate position. ??The right ovary is again identified however the left is not seen. ??There is no free fluid. US/US pelvis w/ transvaginal IMPRESSION: IUD IN APPROPRIATE POSITION. NO DOMINANT ADNEXAL CYSTS OR OTHER ACUTE FINDINGS. Impression dictated by: Gladis Valente M.D. ??02/21/2025 8:14 AM Dictation Location: [place] [address] Electronically authenticated by: [id number] ??Y ?? Date: 02/21/2025 ??08:14 Dictated By: ?Gladis Valente M.D. Signed By: ?02/21/25815 DD/ 3 TD/TT: ? Student Services Advisor: Procedure Note Radiology, Radiologist, - 03/20/2025 [place] [address] Ultrasound Report Signed Patient: CARMEN CAMARENA GMR#: [id number] : 1995Acct:[id number] Age/Sex: 30 / FADM Date: 02/21/25 Loc: US Attending Dr: Jeremy Olmstead D.O. Ordering Physician: Jeremy Olmstead D.O. Date of Service: 02/21/25 Procedure(s): US pelvis w/ transvaginal Accession Number(s): [id number] cc: Krishna Hernandez D.O.; Jeremy Olmstead D.O. The [address] [address] Patient Name: CARMEN CAMARENA MRN: [id number] date: 1995 Sex: F Assigned Patient Location: US Current Patient Location: US Accession/Order Number: [id number] Exam Date: 02/21/2025 07:09 Report Date: 02/21/2025 08:14 At the request of: JEREMY OLMSTEAD DO Procedure: US pelvis w/ transvaginal ULTRASOUND PELVIS WITH TRANSVAGINAL CLINICAL DATA: Pelvic pain and abdominal uterine bleeding. IUD. COMPARISON: CT 12/21/2024 Real-time ultrasound evaluation the pelvis was performed utilizing kan transabdominal and transvaginal approach. TRANSABDOMINAL: The urinary bladder is empty, limiting evaluation. Theuterus is slightly retroverted. Estimated uterine size is approximately 8.5 x4.8 x 4.6 cm. No focal myometrial abnormalities are noted. There is anechogenic structure within the endometrial canal correlating with the reportedIUD. Both ovaries are identified. The right measures 3.9 x 2.4 x 3.6 cm. Theleft ovary measures 3.8 x 2.8 x 2.6 cm. There are no dominant adnexal cysts. There is documentation of ovarian blood flow. TRANSVAGINAL: Transitional imaging was performed to better evaluate theuterus and adnexa. By this approach, no focal myometrial abnormalities areseen. The endometrial lining is estimated at 4-5 mm in thickness. The IUDappears to be in appropriate position. The right ovary is again identifiedhowever the left is not seen. There is no free fluid. US/US pelvis w/ transvaginal IMPRESSION: IUD IN APPROPRIATE POSITION. NO DOMINANT ADNEXAL CYSTS OR OTHER ACUTE FINDINGS. Impression dictated by: Gladis Valente M.D. 02/21/2025 8:14 AM Dictation Location: [place] [address] Electronically authenticated by: [id number] Y Date: 508:14 Dictated By: Gladis Valente M.D. Signed By:02/21/25815 DD/ 3 TD/TT: Student Services Advisor: Authorizing ProviderResult TypeResult StatusCorey Aysha DOCLINISYNC IMAGINGFinal Result from Last 3 Months Insurance Care Teams Team MemberRelationshipSpecialtyStart DateEnd Krishna Hernandez DO [address] [place] [address] PCP - GeneralInternal Medicine08/10/23
--- OUTSIDE RECORDS SUMMARY | 2025-05-09 10:19 | XMS_ITS | CCD ---
Author Organization [facility] CliniSyar Care Team Providers Care Teletypewriter Operator Name Role Phone PHYSICIAN, DEFAULT Unavailable Unavailable PHYSICIAN, DEFAULT Unavailable Unavailable Krishna Hernandez Unavailable KAYLIE, DR STRONG Primary Care Unavailable [...] Unavailable MD Susan Ramirez Primary Care Provider Jeremy Olmstead Attending Provider Krishna Hernandez MD Primary Care Provider Krishna Hernandez DO Attending Provider [phone] Krishna Hernandez DO Primary Care Provider Krishna [...] Physician Krishna Hernandez DO Primary Care Provider Julieth Lassiter Attending Unavailable Michaelle Morales Attending Unavailable KRISHNA HERNANDEZ Referring Unavailable Michaelle Morales Attending Unavailable Michaelle Morales Admitting Unavailable Krishna Hernandez DO Primary Care Provider JEREMY OLMSTEAD Attending Unavailable JEREMY OLMSTEAD Referring Unavailable JEREMY OLMSTEAD Attending Unavailable JEREMY OLMSTEAD Referring Unavailable JEREMY OLMSTEAD Attending Unavailable Allergies Allergy ClassificationReported Allergen(s)Allergy TypeDate of OnsetReaction(s) Facility (12 sources)Doxycycline; Translations: [DOXYCYCLINE]Drug Empqtfg99-68-5783JE intolerance, Upset stomach (finding)[facility] (1 source)DoxycyclineDrug Gydgkak64-16-1344KuevpuqmbSelect [facility] Medications Current Medications MedicationDrug Class(es)DatesSig (Normalized)Sig (Original)[id number] 200 actuat albuterol 0.09 mg/actuat metered dose [...] 875 mg oral tablet (14 sources)Penicillin-class AntibacterialStart: 82-60-8803qocb 1 tablet by mouth twice dailyStart: 06-23-2024 End: 27-00-8564nfuj 1 tablet by mouth twice dailyAmoxicillin 875 mg tablet Discontinued 875 MG PO Twice daily 27 02June 23, 2024 1:00am July 08, 2024 3:41pmStart: 21-17-6179objx 1 capsule by mouth every eight hours Amoxicillin 500 MG 1 capsule Orally every 8 hrs for 7 days May, Active amoxicillin 875 mg / clavulanate 125 mg oral tablet (4 sources)Penicillin-class AntibacterialStart: 26-61-6233mbxh 1 tablet by mouth every twelve hoursAmoxicillin-Pot Clavulanate 875-125 MG 1 tablet Orally every 12 hrs for 7 days Aug, Activeazithromycin 250 mg oral tablet (7 sources)Macrolide AntimicrobialStart: 74-02-5341Skvusoymndgo 250 MG as directed Orally daily for 5 days Jan, Activecitalopram 40 mg oral tablet (20 sources)Serotonin Reuptake InhibitorStart: 73-80-5989kild 1 tablet by mouth once dailycitalopram (CeleXA) 40 MG tablet Take 40 mg by mouth Daily 01/04/2025 ActiveStart: 10-07-2024 End: 07-26-3828ufab 1 tablet by mouth once dailyStart: 09-21-2024 End: 74-69-4139cgyg 1 tablet by mouth once daily in the morningCitalopram 20 mg tablet Discontinued 20 MG PO Every morning September 21, 2024 3:58pm October 07, 2024 10:06amStart: 05-02-2020 End: 01-46-0665pxph 1 tablet by mouth once daily in the morningCitalopram 20 mg Tablet Discontinued 20 MG PO Every morning May 02, 2020 1:00am April 14, 2024 10:54amescitalopram 10 mg oral tablet (6 sources)Serotonin Reuptake InhibitorStart: 90-51-3153xddj 1 tablet by mouth every twenty-four hoursEscitalopram Oxalate 10 MG 1 tablet Orally Once a day for 30 days Jul, Activeibuprofen 800 mg oral tablet (8 sources)Nonsteroidal Anti-inflammatory DrugStart: 07-53-1662kcar 1 tablet by mouth every eight hours as neededibuprofen 800 MG tablet Take 800 mg by mouth every 8 (eight) hours if needed 06/25/2024 ActiveMultivitamin preparation (2 sources)Start: 99-33-8855boslaoqkamkb Refill(s) 0 Start Date: 01/04/25 Status: Ordered Repeat number: 1nitrofurantoin, macrocrystals 25 mg / nitrofurantoin, monohydrate 75 mg oral capsule (6 sources)Nitrofuran Antibacterialtake 1 capsule by mouth every twelve hoursNo Name (No Known Home Meds) (3 sources)Start: 91-90-7227Ep Name (No Known Home Meds) Active July 08, 2024 1:00amStart: 59-82-5245As Name (No Known Home Meds) Active July 08, 2024 12:00amStart: 76-29-6800Qy Name (No Known Home Meds) Active April 30, 2020 1:00amomeprazole 40 mg delayed release oral capsule (3 sources)Proton Pump InhibitorStart: 76-43-5006Sdgqvsldoo 40 MG 1 capsule Orally Once a day, taken on empty stomach, followed in 30 minutes by bkfst for 30 days Aug, Activephenazopyridine hydrochloride 200 mg oral tablet (6 sources)take 1 tablet by mouth every eight hourspredniSONE 20 mg oral tablet (2 sources)Start: 12-02-2024 Completed/Discontinued Medications MedicationDrug Class(es)DatesSig (Normalized)Sig (Original)cefdinir 300 mg oral capsule (6 sources)Cephalosporin AntibacterialStart: 04-14-2024 End: 32-74-6060jmoe 1 capsule by mouth twice dailyCefdinir 300 mg capsule Discontinued 300 MG PO Twice daily 02 12April 14, 2024 1:00am July 08, 2024 3:36pmlevonorgestrel 0.382352 mg/hr intrauterine system (20 sources)Progestin, Progestin-containing Intrauterine DeviceStart: 08-12-2024 End: 48-56-1167Sjfznurdkihcgj (Mirena, 52 MG,) 20 MCG/DAY intrauterine device 52 mg by Intrauterine route continuously IUD was placed during recent surgery on 08/12/2024 [facility]: 24955-621-51 Lot# [id number] Expiration: 09/202608/12/2024 03/13/2025 DiscontinuedStart: 07-26-2024 End: 37-09-8426Fwggxzqarqylyv intrauterine device 52 mgMirena Activemelatonin 5 mg oral tablet (7 sources)Start: 05-02-2020 End: 90-19-6715tfqw 1 tablet by mouth once daily at bedtime as neededMelatonin 5 mg Tablet Discontinued 5 MG PO Daily at bedtime as needed for Insomnia May 02, 2020 1:00am April 14, 2024 10:54amnicotine 2 mg chewing gum (7 sources)Cholinergic Nicotinic AgonistStart: 05-02-2020 End: 87-43-1170Jglumjlk (Polacrilex) 2 mg Gum Discontinued 2 MG BUCCAL Q2H as needed for Nicotine Cravings May 02, 2020 1:00am April 14, 2024 10:54amondansetron 4 mg disintegrating oral tablet (6 sources)Serotonin-3 Receptor AntagonistStart: 04-14-2024 End: 85-84-4269tvpw 1 tablet by mouth every eight hours as needed for nausea and vomitingOndansetron 4 mg tablet,disintegrating Discontinued 4 MG PO Every 8 hours as needed for nausea and vomiting 10 April 14, 2024 1:00am July 08, 2024 3:36pm Problems Active Problems Problem ClassificationProblemDateDocumented DateEpisodic/ChronicAbdominal pain (20 sources)Pelvic and perineal pain; Translations: [Pelvic and perineal pain] Onset: 61-51-3190TiqddqjuTdetj bronchitis (16 sources)Acute bronchitis due to other specified organisms; Translations: [Acute bronchitis]Onset: 30-98-9425WnnfevbhYojftbgxswjrmo/social admission (3 sources)Encounter for blood-alcohol and blood-drug [...] [Gastro-esophageal reflux disease with esophagitis, without bleeding]Onset: 59-05-2942Jtbwjlxqc hypertension (2 sources)Hypertensive disorderOnset: 383271-42-2100FayadehYlnjockbhiisx symptoms and ill-defined conditions (20 sources)Genitourinary symptoms; Translations: [Unspecified symptoms and signs involving the genitourinary system]Onset: 227596-14-7009Wnotqzjw Headache; including migraine (17 sources)Refractory migraine with aura; Translations: [Migraine with aura, intractable, with status migrainosus]Onset: 650708-94-4134YxrhrwoDcxmusi on above:Problem List clean-up per request of [...] [-induced] hypertension withoutsignificant proteinuria, third trimester] Resolved: 41-10-3082DnommnsvGnjehmn and fatigue (2 sources)Fatigue; Translations: [Other fatigue]82-84-5154RxmoufqfAyaacgods disorders (3 sources)Amenorrhea; Translations: [Amenorrhea, unspecified]Onset: 09-27-2013 ChronicMood disorders (16 sources)Chronic depression; Translations: [Major depressive disorder, single episode, unspecified]83-44-5588GbczigvTsezxck on above:Problem List clean-up per request of Phys. EHR CmteOutside Source Comment: Problem List clean-up per request of Phys. EHR CmteNausea and vomiting (10 sources)Nausea and vomiting; Translations: [Nausea with vomiting, unspecified]74-87-3598XflzzunsZsqwg circulatory disease (9 sources)Elevated blood-pressure reading without diagnosis of hypertension; Translations: [Elevated blood-pressure reading, without diagnosis of hypertension]60-52-0367LveqacrhUywxz circulatory disease (1 source)Elevated blood-pressure reading, without diagnosis of hypertension; Translations: [Elevated blood pressure reading without diagnosis of hypertension]03-27-5996CesauqwzHomiv complications of (6 sources)High risk ; Translations: [...] bleeding; Translations: [Abnormal uterine and vaginal bleeding, unspecified]41-91-4335FjvghtuBgekn gastrointestinal disorders (2 sources)Dysphagia, unspecified; Translations: [Dysphagia, unspecified] 14-51-9746DpfxhdzsVdakr injuries and conditions due to external causes [...] enzymes; Translations: [Other nonspecific abnormal serum enzyme levels]33-90-0097DdimzsmdWllcc lower respiratory disease (4 sources)Wheezing; Translations: [Wheezing]EpisodicOther lower respiratory disease (2 sources)Cough; Translations: [Cough]05-81-0091BuddzjbcIvhdu nutritional; endocrine; and metabolic disorders (6 sources)Body mass index 30+ - obesity; Translations: [Obesity, unspecified] ChronicOther nutritional; endocrine; and metabolic disorders (2 sources)Obesity, unspecified; Translations: [Obesity, unspecified]Chronic Other nutritional; endocrine; and metabolic disorders (3 sources)Obese class II; Translations: [Body mass index (BMI) 35.0-35.9, adult]ChronicOther nutritional; endocrine; and metabolic disorders (3 sources)Simple obesity ; Translations: [Other obesity due to excess calories] Onset: 45-00-9069MwhzggzMvepe nutritional; endocrine; and metabolic disorders (9 sources)Obesity; Translations: [Obesity, unspecified]78-50-7015OpxifclBqiub and delivery including normal (12 sources) test positive; Translations: [Encounter for test, result positive]Onset: 09-27-2013 Resolved: 81-88-0437KdamrpiuIoffz screening for suspected conditions (not mental disorders or infectious disease) (7 sources)Encounter for screening for malignant neoplasm of cervix; Translations: [Urine test negative]Onset: 32-49-7766WtoskuyuTmimyhcu (3 sources)Supervision of high risk with history [...] sources)Nicotine dependence, cigarettes, uncomplicated; Translations: [Nicotine dependence]Onset: 64-34-3971FvklunfDdzytsy and intentional self- inflicted injury (9 sources)Suicidal thoughts; Translations: [Suicidal ideations]04-22-2023 EpisodicComment on above:Problem List clean-up per request of Phys. EHR Cmte Outside Source Comment: Problem List clean-up per request of Phys. EHR Cmte Unclassified (3 sources)CONTACT W/AND (SUSP) EXPOS COVID-19; Translations: [CONTACT W/AND (SUSP) EXPOS COVID-19]Onset: 04-64-4898Oxygxbvexfmy (1 source)Left Ankle Pain, InjuryOnset: 05-29-1522Zcdbylhpetqf (2 sources)Severe acute respiratory syndrome coronavirus 2 rdaasvzx73-66-4330 Comment on above:Outside Source Comment: Problem List clean-up per request of Phys. EHR CmteUrinary tract infections (4 sources)Cystitis, unspecified without hematuria; Translations: [Urinary tract infectious disease]Onset: 97-96-8901ApmqovvwIcaid infection (7 sources)COVID-19; Translations: [Severe acute respiratory syndrome coronavirus 2 (SARS-CoV-2) detected]80-05-7494BxtbpllvJbvnfcv on above:Problem List clean-up per request of Phys. EHR CmteViral infection (7 sources)Disease caused by 2019-nCoV; Translations: [COVID-19] Past or Other Problems Problem ClassificationProblemDateDocumented DateEpisodic/ChronicImmunizations and screening for infectious disease (3 sources)Sexually transmitted infectious disease; Translations: [Encounter for screening for infections witha predominantly sexual mode of transmission] Resolved: 89-56-4764XvmedbikFdldykhuyiit; infection of eye (except that caused by tuberculosis or sexually transmitteddisease) (6 sources)Acute conjunctivitis; Translations: [Unspecified acute conjunctivitis]Onset: 90-78-1863EtdltkiaGgjadhiaujvgg (5 sources)Localized enlarged lymph nodes; Translations: [Enlargement of lymph nodes]Onset: 997347-81-3059GmyyvbwuUkishopuojvth mental health disorders (3 sources) depression; Translations: [ depression] Resolved: 39-68-8942XzmaobyiRankdwaedmy chest pain (4 sources)Chest pain; Translations: [Other chest pain]Onset: 45-15-1036Qwmqpqul Other circulatory disease (3 sources)Cardiovascular symptoms; Translations: [Other specified symptoms and signs involving the circulatory and respiratory systems]Onset: 10-19-2017 EpisodicOther complications of ; puerperium affecting management of mother (3 sources) delivery - delivered; Translations: [Encounter for delivery without indication] Resolved: 34-82-4069GgwgnenjGpqxd complications of (3 sources)Supervision of with insufficient care, third trimester; Translations: [Suprvsn of preg w insufficient antenat care, third trimester] Resolved: 76-80-0393PitqjifzXdbxc nervous system disorders (3 sources)Dysarthria; Translations: [Dysarthria and anarthria]Onset: 01-12-2018 EpisodicOther non-traumatic joint disorders (1 source)Ankle painOnset: 93-21-7499JwcgvvfgZjvyd upper respiratory disease (1 source)Pain in throatOnset: 69-02-7487AardlinwMisxh upper respiratory infections (20 sources)Acute maxillary sinusitis, unspecified; Translations: [Acute upper respiratory infection]Onset: 95-23-2030TchqkmgaAzixywxp codes; unclassified (3 sources)History of uterine scar from previous surgery; Translations: [History of uterine scar from previoussurgery] Resolved: 88-15-6512SyqxgzatJvypqkq and strains (1 source)Sprain of unspecified ligament of left ankle, initial encounter; Translations: [Sprain of unspecified ligament of left ankle, initial encounter] Onset: 65-48-7407BejaifmyEyrqhomvuecl (1 source)CONTACT W/AND (SUSP) EXPOS COVID-19; Translations: [CONTACT W/AND (SUSP) EXPOS COVID-19]Onset: 09-25-2021 Results Test NameValueInterpretationReference RangeFacilityUS PELVIS W/ TRANSVAGINALon 01-00-6294K[place] [address] Ultrasound Report Signed Patient: ADRIENNE CAMARENA MR#: [id number] : 1995 Acct:[id number] Age/Sex: 30 / F ADM Date: 02/21/25 Loc: US Attending Dr: Jeremy Olmstead D.O. Ordering Physician: Jeremy Olmstead D.O. Date of Service: 02/21/25 Procedure(s): US pelvis w/ transvaginal Accession Number(s): [id number] cc: Krishna Hernandez D.O.; Jeremy Olmstead D.O. [place] [id number] Patient Name: ADRIENNE CAMARENA MRN: [id number] date: 1995 Sex: F Assigned Patient Location: US Current Patient Location: US Accession/Order Number: [id number] Exam Date: 02/21/2025 07:09 Report Date: 02/21/2025 08:14 At the request of: JEREMY OLMSTEAD DO Procedure: US pelvis w/ transvaginal ULTRASOUND PELVIS WITH TRANSVAGINAL CLINICAL DATA: Pelvic pain and abdominal uterine bleeding. IUD. COMPARISON: CT 12/21/2024 Real-time ultrasound evaluation the pelvis was performed utilizing both a transabdominal and transvaginal approach. TRANSABDOMINAL: The urinary bladder is empty, limiting evaluation. The uterus is slightly retroverted. Estimated uterine size is approximately 8.5 x 4.8 x 4.6 cm. No focal myometrial abnormalities are noted. There is an echogenic structure within the endometrial canal correlating with the reported IUD. Both ovaries are identified. The right measures 3.9 x 2.4 x 3.6 cm. The left ovary measures 3.8 x 2.8 x 2.6 cm. There are no dominant adnexal cysts. There is documentation of ovarian blood flow. TRANSVAGINAL: Transitional imaging was performed to better evaluate the uterus and adnexa. By this approach, no focal myometrial abnormalities are seen. The endometrial lining is estimated at 4-5 mm in thickness. The IUD appears to be in appropriate position. The right ovary is again identified however the left is not seen. There is no free fluid. US/US pelvis w/ transvaginal IMPRESSION: IUD IN APPROPRIATE POSITION. NO DOMINANT ADNEXAL CYSTS OR OTHER ACUTE FINDINGS. Impression dictated by: Gladis Valente M.D. 02/21/2025 8:14 AM Dictation Location: [place] [address] Electronically authenticated by: [id number] Y Date: 02/21/2025 08:14 Dictated By: Gladis Valente M.D. Signed By: 02/21/25815 DD/ 3 TD/TT: Oracle Adf Developer:TBHRadiology, Radiologist, - 03/20/2025 [place] [address] Ultrasound Report Signed Patient: ADRIENNE CAMARENA MR#: [id number] : 1995 Acct:[id number] Age/Sex: 30 / F ADM Date: 02/21/25 Loc: US Attending Dr: Jeremy Olmstead D.O. Ordering Physician: Jeremy Olmstead D.O. Date of Service: 02/21/25 Procedure(s): US pelvis w/ transvaginal Accession Number(s): [id number] cc: Krishna Hernandez D.O.; Jeremy Olmstead D.O. [place] [id number] Patient Name: ADRIENNE CAMARENA MRN: [facility]:[id number] date: 1995 Sex: F Assigned Patient Location: Current Patient Location: Accession/Order Number: [id number] Exam Date: 02/21/2025 07:09 Report Date: 02/21/2025 08:14 At the request of: JEREMY OLMSTEAD DO Procedure: US pelvis w/ transvaginal ULTRASOUND PELVIS WITH TRANSVAGINAL CLINICAL DATA: Pelvic pain and abdominal uterine bleeding. IUD. COMPARISON: CT 12/21/2024 Real-time ultrasound evaluation the pelvis was performed utilizing both a transabdominal and transvaginal approach. TRANSABDOMINAL: The urinary bladder is empty, limiting evaluation. The uterus is slightly retroverted. Estimated uterine size is approximately 8.5 x 4.8 x 4.6 cm. No focal myometrial abnormalities are noted. There is an echogenic structure within the endometrial canal correlating with the reported IUD. Both ovaries are identified. The right measures 3.9 x 2.4 x 3.6 cm. The left ovary measures 3.8 x 2.8 x 2.6 cm. There are no dominant adnexal cysts. There is documentation of ovarian blood flow. TRANSVAGINAL: Transitional imaging was performed to better evaluate the uterus and adnexa. By this approach, no focal myometrial abnormalities are seen. The endometrial lining is estimated at 4-5 mm in thickness. The IUD appears to be in appropriate position. The right ovary is again identified however the left is not seen. There is no free fluid. US/US pelvis w/ transvaginal IMPRESSION: IUD IN APPROPRIATE POSITION. NO DOMINANT ADNEXAL CYSTS OR OTHER ACUTE FINDINGS. Impression dictated by: Gladis Valente M.D. 02/21/2025 8:14 AM Dictation Location: [place] [address] Electronically authenticated by: [id number] Y Date: 02/21/2025 08:14 Dictated By: Gladis Valente M.D. Signed By: 02/21/25815 DD/ 3 TD/TT: Oracle Adf Developer: MAHESH HealthcareRadiology Study observation (narrative)MAHESH HealthcareUS PELVIS W/ TRANSVAGINALOrdered By: Radiologist Radiology on 87-02-7960SQNZ Kidaro Work Phone: US PELVIC COMPLETE W/ TVon 17-94-8640AA PELVIC COMPLETE W/ TVFINDINGS: Uterus 12.7 x [...] intramural mass. TRANSCRIBED BY: ELECTRONICALLY SIGNED BY: Rose BellNot AvailableComment on above:Order Comment: US PELVIS-TRANSVAG IF INDICATED No LMP recorded. (Menstrual status: No Periods).Urine Cytology ([facility])on 06-66-7276Zgces CytologyDiagnosis InfoInvalid Interpretation [facility]tering Health DaytonComment on above:Result Comment: A:Urine,Clean Catch:Voided Interpretation - Adequate cellularity for evaluation. CPT 54418 MicroScopic Description - Adequacy - Gross Description Site ID:A color Yellow fixative Alcohol Specimen designated Clean Catch received in alcohol preservative and labeled with the patient???s name, consists of 40ml clear yellow fluid. Electronically signed by : on: 01/10/2025 13:43:27Performed By: #### [id number] #### [facility] [address], [place] [address]Qoukaibfdt Visit Summaryon 08-29-2307Kihiorvzox Visit Summary Ambulatory Visit Summary ADRIENNE CAMARENA :1995 Visit Date:01/04/2025 Ambulatory Visit Instructions Your Diagnosis Gross hematuria Smoker Your Care Team Attending Physician - Michaelle Morales PA-C Primary Care Physician - KRISHNA HERNANDEZ [...] Julieth Lassiter MD Where: [facility] [address] [address]- You Need to Schedule the Following Appointments [...] these instructions at home: Medicines ??? Take yuap-fsw-fceuefa and prescription medicines only as told by [...] You pass blood clot (more content not included)...NormalBlanchard Valley Health System [facility] HospitalProvider Letteron 10-91-6232Dwlbwxgw LetterProvider Letter January 04, 2025 ADRIENNE ALL [address] [address] : 1995 To Whom It May Concern, Please excuse above patient from work. The patient had an appointment at [facility] today, 01/04/25. May Return to Work On: 01/04/25 Restrictions: None Comments: _ Sincerely, Michaelle Morales PA-C [facility] [address] [place] [id number] Health [address] Elizabeth Boardman HospitalUrine Cytology ([facility])on 83-48-2551QC Method of ExtractionBladder UrineNoOhio State East Hospital Comment on above:Performed By: #### [id number] #### [facility] [address], [place] [address]VQ Number of Tiba7Mxuiuir Interpretation CodeBlanchard Valley Health System Blanchard Valley HospitalComment on above:Performed By: #### [id number] #### [facility] [address], [place] [address]OT SpecimenClean CatchNoOhio State East HospitalComment on above:Performed By: #### [id number] #### [facility] [address], [place] [address]JH Type of ServiceConsultMercy Health St. Elizabeth Boardman Hospital Comment on above:Performed By: #### [id number] #### [facility] [address], [place] [address]Dszcbgz Office/Clinic Noteon 16-51-4939Lznwafk Office/Clinic NoteUrology Office/Clinic Note Chief Complaint new [...] no acute distress. 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 Gross hematuria (R31.0: Gross hematuria) Micro UA 12/07/24 - RBC 2-5 UCX 12/07/24 - 50K mixed bacterial skin contaminants CTAP w/wo contrast 12/21/24 [facility] - no acute findings Labs 12/21/24 - Cr 0.57, GFR > 60 [facility] ER 12/28/24 - c/o gross hematuria and R flank pain CTAP wo con 12/28/24 - multiple phleboliths around ureters distally in pelvis, no obvious obstructive uropathy, no hydro UA today w/ large blood and trace leuks *She denies sxs of infection Shares painless gross hematuria first occurred 1.5 months ago. She was evaluated by HOSPITAL AIDE (Dr. Olmstead), he exhanged her IUD but [...] order Local anesthesia. -F/U pending cysto Ordered: 94338 Measure Post Void residual urine and/or bladder capacity by US- non-imaging Urnls Dip Stick Auto w/o Microscopy POC 85113 2. Smoker (F17.200: Nicotine dependence, unspecified, uncomplicated) [...] Negative (01/04/25 09:27:00) Leuko (more content not included)...[facility] Boardman HospitalComment on above:Result Comment: Electronically Signed By: Michaelle Morales PA-C\.br\Date and Time Signed: 01/04/25 10:44 EDTCBC WITH AUTO DIFFERENTIALon 00-82-0916JEJFANRDS ABSOLUTE COUNT (10*3/UL) BY AUTOMATED COUNT0.0 10*3/uLNormal0.0-0.2Pro[facility] HospitalComment on above:Performed By: #### CBCShakira, BMP #### [facility] ([id number]) [address] [place] [address] [id number] RELATIVE PERCENT BY AUTOMATED COUNT0.3 %Normal [facility] Medical CenterComment on above:Performed By: #### CBCShakira, BMP #### [facility] ([id number]) [address] [place] [id number] DIFFERENTIAL TYPEAUTOMATED DIFFERENTIALNormal [facility] CenterComment on above:Performed By: #### VALE, BMP #### [facility] ([id number]) [address] [place] [id number] (Bld) [#/Vol]0.1 10*3/uLNormal0.0-0.4[facility] Medical CenterComment on above:Performed By: #### VALE, BMP #### [facility] ([id number]) [address] [place] [address] 09492EBIQDCDGUCB RELATIVE PERCENT BY AUTOMATED COUNT1.1 %Normal [facility] CenterComment on above:Performed By: #### VALE, BMP #### [facility] ([id number]) [address] [place] [address] 208[address]Zofjfhotvdb distribution width (RBC) [Ratio]13.2 %Veztrv57.5-15 [facility] Medical CenterComment on above:Performed By: #### CBCShakira, BMP #### [facility] ([id number]) [address] [place] [address] [phone] (Bld) [Volume fraction]42.4 %Yaxexa60-31UnfQwzwgbHarris Health System Ben Taub HospitalComment on above:Performed By: #### CBCA, BMP #### [facility] ([id number]) [address] [place] [address] 39579Apdwrcpmeq (Bld) [Mass/Vol]14.5 g/tVOcvwyj35.7-15.5PSelect Medical Specialty Hospital - AkronComment on above:Performed By: #### CBCA, BMP #### [facility] ([id number]) [address] [place] [address] 30984CTHLCOYDPUB ABSOLUTE COUNT (10*3/UL) BY AUTOMATED COUNT2.1 10*3/uLNormal1.0-3.5PSelect Medical Specialty Hospital - AkronComment on above:Performed By: #### CBCA, BMP #### [facility] ([id number]) [address] [place] [address] 34925XOAUYCUJKGG RELATIVE PERCENT BY AUTOMATED COUNT24.4 %Normal [facility]huja Medical CenterComment on above:Performed By: #### CBCA, BMP #### [facility] ([id number]) [address] [place] [address] [phone] (RBC) [Entitic mass]29.6 elPrxgnt77-74CffRwghucUniversity Hospitals Ahuja Medical CenterComment on above:Performed By: #### CBCA, BMP #### [facility] ([id number]) [address] [place] [address] 36109GASA (RBC) [Mass/Vol]34.2 g/dJFhxwuk93-21HnwCgrnzuHarris Health System Ben Taub HospitalComment on above:Performed By: #### CBCA, BMP #### [facility] ([id number]) [address] [place] [address] [phone] (RBC) [Entitic vol]87 eZNbfyxg38-101NenZgepkrUniversity Hospitals Ahuja Medical CenterComment on above:Performed By: #### CBCA, BMP #### [facility] ([id number]) [address] [place] [address] 83762LBVZDMYBT ABSOLUTE COUNT (10*3/UL) BY AUTOMATED COUNT0.4 10*3/uLNormal0.0-0.9[facility]ja Medical CenterComment on above:Performed By: #### CBCShakira, BMP #### [facility] ([id number]) [address] [place] [address] 78562JZCEOUOIQ RELATIVE PERCENT BY AUTOMATED COUNT4.6 %Normal [facility] Medical CenterComment on above:Performed By: #### CBCA, BMP #### [facility] ([id number]) [address] [place] [address] 11728ZWEMJPRMDVD ABSOLUTE COUNT BY AUTOMATED COUNT5.9 10*3/uLNormal 1.5-6.6ProHarris Health System Ben Taub HospitalComment on above:Performed By: #### CBCA, BMP #### [facility] ([id number]) [address] [place] [address] 39612PXVUTZQBASE RELATIVE PERCENT BY AUTOMATED COUNT69.6 %Normal [facility]ja Medical CenterComment on above:Performed By: #### CBCShakira, BMP #### [facility] ([id number]) [address] [place] [address] 17967Pwjhdhvz mean volume (Bld) [Entitic vol]8.1 fLNormal7-12 [facility]huja Medical CenterComment on above:Performed By: #### CBCA, BMP #### [facility] ([id number]) [address] [place] [address] 82013Awodnbpzu (Bld) [#/Vol]320 10*3/uDBrthzx511-318MauJwanmb Fremont HospitalComment on above:Performed By: #### CBCA, BMP #### [facility] ([id number]) [address] [place] [address] 69684LVF COUNT4.90 X10E12/LNormal3.8-5.2PSelect Medical Specialty Hospital [facility] [place] Comment on above:Performed By: #### VALE, BMP #### [facility] ([id number]) [address] [place] [address] [phone] (Bld) [#/Vol]8.5 10*3/uLNormal4-11[facility] Ahuja Medical CenterComment on above:Performed By: #### VALE, BMP #### [facility] ([id number]) [address] [place] [address] 81593NWCPOKYQXYKRS METABOLIC PANELon 70-43-1619Caxrlkh [Mass/Vol]4.0 g/dLNormal3.2-5.3ProMedLos Angeles County High Desert HospitalComment on above:Performed By: #### VALE, BMP #### [facility] ([id number]) [address] [place] [address] 40094DIH [Catalytic activity/Vol]81 U/SZrzhtl34-463FtsDqicolHarris Health System Ben Taub HospitalComment on above:Performed By: #### VALE, BMP #### [facility] ([id number]) [address] [place] [address] 78451GHL [Catalytic activity/Vol]46 U/LHigh<=31PSelect Medical Specialty Hospital - AkronComment on above:Performed By: #### VALE, BMP #### [facility] ([id number]) [address] [place] [address] 14865Iheym gap [Moles/Vol]6 mmol/LNormal5-15ProHarris Health System Ben Taub HospitalComment on above:Performed By: #### VALE, BMP #### [facility] ([id number]) [address] [place] [address] 31034GXI [Catalytic activity/Vol]30 U/LNormal<=41ProHarris Health System Ben Taub HospitalComment on above:Performed By: #### VALE, BMP #### [facility] ([id number]) [address] [place] [address] 01820Abexgjbxb [Mass/Vol]0.9 mg/dLNormal0.3-1.2PSelect Medical Specialty Hospital - AkronComment on above:Performed By: #### VALE, BMP #### [facility] ([id number]) [address] [place] [address] 63388Sefmvfg [Mass/Vol]8.9 mg/dLNormal8.5-10.5PSelect Medical Specialty Hospital - AkronComment on above:Performed By: #### VALE, BMP #### [facility] ([id number]) [address] [place] [address] 72057Ohjbsomw [Moles/Vol]106 mmol/YAccglp09-484GqsPbjcheHarris Health System Ben Taub HospitalComment on above:Performed By: #### VALE, BMP #### [facility] ([id number]) [address] [place] [address] 22853UK2 [Moles/Vol]23 mmol/WUaqpae81-64WsaPkwiegSelect Medical Specialty Hospital - Akron Comment on above:Performed By: #### VALE, BMP #### [facility] ([id number]) [address] [place] [address] 05470Lhtisfvgpf [Mass/Vol]0.57 mg/dLNormal0.40-1.00ProHarris Health System Ben Taub HospitalComment on above:Result Comment: METHOD TRACEABLE TO IDMS STANDARD Performed By: #### VALE, BMP #### [facility] ([id number]) [address] [place] [address] 51038OTLD (CKD-EPI) NON-RACE DEPENDENT>^90Normal>=60ProHarris Health System Ben Taub HospitalComment on above:Result Comment: eGFR not reported due to non- numeric value for Creatinine. EGFR not calculated due to patient's gender not being defined. Reported eGFR is based on the CKD-EPI 2021 equation that does not use a race coefficient.Performed By: #### VALE, BMP #### [facility] ([id number]) [address] [place] [address] 55708Abrdhpi [Mass/Vol]121 mg/oMJajz26-21NeqIolsxeHarris Health System Ben Taub Hospital Comment on above:Performed By: #### VALE, BMP #### [facility] ([id number]) [address] [place] [address] 66144Labthxpqm [Moles/Vol]3.7 mmol/LNormal3.5-5.0ProHarris Health System Ben Taub HospitalComment on above:Performed By: #### VALE, BMP #### [facility] ([id number]) [address] [place] [address] 02624Dyqvvds [Mass/Vol]7.3 g/dLNormal6.0-8.0ProHarris Health System Ben Taub HospitalComment on above:Performed By: #### VALE, BMP #### [facility] ([id number]) [address] [place] [address] 69112Xeuzcp [Moles/Vol]135 mmol/PSuseph598-776VocXjcahn Fremont HospitalComment on above:Performed By: #### VALE, BMP #### [facility] ([id number]) [address] [place] [address] 83086Wcih nitrogen [Mass/Vol]8 mg/dLNormal5-23ProHarris Health System Ben Taub HospitalComment on above:Performed By: #### VALE, BMP #### [facility] ([id number]) [address] [place] [address] 18524SM ABDOMEN AND PELVIS WO CONTon 70-37-7813BF ABDOMEN AND PELVIS WO CONTCT ABDOMEN AND [...] by Jin Salas MD on 12/28/2024 4:14 PMNormalUniversity Hospitals Ahuja Medical CenterPOCT NURSING URINE MACROSCOPIC UAon 55-34-4910ZACWHUZGY NURNegative NormalNegSt. Charles HospitalComment on above:Performed By: #### CBCA, BMP #### [facility] ([id number]) [address] [place] [address] 13433MMFYZ/HGB NURTraceAbnormalNegativeUniversity Hospitals Ahuja Medical Center Comment on above:Performed By: #### CBCA, BMP #### [facility] ([id number]) [address] [place] [address] 77101SDOAPQH NURNegativeNormalNegativeUniversity Hospitals Ahuja Medical Center Comment on above:Performed By: #### CBCA, BMP #### [facility] ([id number]) [address] [place] [address] 38551STIHYTG NURNegativeNormalNegativeUniversity Hospitals Ahuja Medical Center Comment on above:Performed By: #### CBCA, BMP #### [facility] ([id number]) [address] [place] [address] 50635JCBWMFUHR ESTERASE NURTraceAbnormalNegativeUniversity Hospitals Ahuja Medical CenterComment on above:Performed By: #### CBCA, BMP #### [facility] ([id number]) [address] [place] [address] 00162ZAKYREQ NURNegativeNormalNegativeUniversity Hospitals Ahuja Medical Center Comment on above:Performed By: #### VALE, BMP #### [facility] ([id number]) [address] [place] [address] 19282ZM NUR7.2Vulovc0.0, 6.0, 6.5, 7.0, 7.5, 8.0, 8.5, 5.5Pro[facility]ica Indian Valley HospitalComment on above:Performed By: #### VALE, BMP #### [facility] ([id number]) [address] [place] [address] 17762TETBIXR NURNegativeNormalNegativeUniversity Hospitals Ahuja Medical Center Comment on above:Performed By: #### VALE, BMP #### [facility] ([id number]) [address] [place] [address] 08728YTWXVOWX GRAVITY NUR1.504Nulqro7.010, 1.015, 1.020, 1.025 [facility] HospitalComment on above:Performed By: #### VALE, BMP #### [facility] ([id number]) [address] [place] [address] 42586FTHNJVMFYCOB NUR1.0 E.U./dLNormalUniversity Hospitals Ahuja Medical Center Comment on above:Performed By: #### VALE, BMP #### [facility] ([id number]) [address] [place] [address] 76903WISP , URINE (NUCG)on 18-66-5919Abrn HCG ( test) Ql (U)NegativeNormalNegative, IndeterminateUniversity Hospitals Ahuja Medical Center Comment on above:Performed By: #### VALE, BMP #### [facility] ([id number]) [address] [place] [address] 45827Zdyhqrczt Auto (Bld) [#/Vol]Ordered By: Krishna Hernandez on 53-51-8574Yvdtkeobt (Bld) [#/Vol]0.0 10 3/uL0.0-0.1FProtestant Deaconess HospitalBasophils/100 WBC Auto (Bld)Ordered By: Krishna Hernandez on 12-21-2024 Basophils/100 WBC (Bld)0.3 %0.2-2.0[facility] Eosinophils/100 WBC Auto (Bld)Ordered By: Krishna Hernandez on 12-21-2024 Eosinophils/100 WBC (Bld)1.4 %0.9-7.0[facility] Erythrocyte distribution width Auto (RBC) [Ratio]Ordered By: Krishna Hernandez on 53-37-7174Thiqrxnnuwn distribution width (RBC) [Ratio]12.3 %11.0-15.0[facility] Hospital - YoungstownGlobulin Calc (S) [Mass/Vol]Ordered By: Krishna Hernandez on 25-98-7216Yogvbkmk (S) [Mass/Vol]3.1 g/dLSelect Medical Specialty Hospital - [place] Glomerular filtration rate (GFR) estimation in non- AmericanOrdered By: Krishna Hernandez on 89-34-9804YUD/1.73 sq M.predicted among non-blacks MDRD (S/P/Bld) [Vol rate/Area]mL/min/{1.73_m2}>=60 mL/min/1.73m 2FProtestant Deaconess HospitalHematocrit Auto (Bld) [Volume fraction]Ordered By: Krishna Hernandez on 40-03-6195Qhjltnlkyw (Bld) [Volume fraction]41.1 %36.0-48.0[facility] YoungstownHemoglobin [Mass/volume] in BloodOrdered By: Krishna Hernandez on 63-43-5322Dyffhbgaoc (Bld) [Mass/Vol]14.0 g/dL12.0-16.0[facility] - YoungstownLaboratory - Chemistry and Chemistry - challengeOrdered By: Krishna Hernandez on 95-20-1778Fttjuni [Mass/Vol]3.3 g/dLLow3.4-5.0[facility] YoungstownALP [Catalytic activity/Vol]86 U/F97-549IofcvjodqSelect Medical Specialty Hospital - YoungstownALT [Catalytic activity/Vol]51 U/M67-44MehdppxqcSelect Medical Specialty Hospital - YoungstownAST [Catalytic activity/Vol]19 U/V40-23JawmtgbznSelect Medical Specialty Hospital - YoungstownBilirubin [Mass/Vol]0.7 mg/dL0.2-1.0[facility] Calcium [Mass/Vol]8.7 mg/dL8.5-10.1FProtestant Deaconess HospitalChloride [Moles/Vol]103 mmol/D06-828UmaaaznsmSelect Medical Specialty Hospital - YoungstownCO2 [Moles/Vol]29.3 mmol/L21.0-32.0[facility] - YoungstownCreatinine [Mass/Vol]0.57 mg/dL 0.55-1.02[facility] - YoungstownGFR/1.73 sq M.predicted MDRD (S/P/Bld) [Vol rate/Area]mL/min/{1.73_m2}>=60 mL/min/1.73m 2FProtestant Deaconess HospitalGlucose [Mass/Vol]91 mg/cV97-041FrpftqwrvSelect Medical Specialty Hospital - YoungstownPotassium [Moles/Vol]4.3 mmol/L3.5-5.1FProtestant Deaconess HospitalProtein [Mass/Vol] 6.4 g/dL6.4-8.2FUniversity Hospitals St. John Medical Centerodium [Moles/Vol]139 mmol/L 136-145[facility] YoungstownUrea nitrogen [Mass/Vol]8.0 mg/dL 7.0-18.0[facility] YoungstownUrea nitrogen/Creatinine [Mass ratio] 14.0 mg/mgSelect Medical Specialty Hospital - YoungstownLaboratory - Hematology and Cell countsOrdered By: Krishna Hernandez on 78-53-1179Lwifwnco granulocytes/100 WBC (Bld) 0.4 %0.0-0.5FProtestant Deaconess HospitalLeukocytes [#/volume] corrected for nucleated erythrocytes in Blood by Automated counOrdered By: Krishna Hernandez on 06-36-0266VGS corrected for nucl RBC Auto (Bld) [#/Vol]9.7 10 3/uL4.0-11.0 [facility] - YoungstownLymphocytes Auto (Bld) [#/Vol]Ordered By: Krishna Hernandez on 23-43-6119Glewarqnjsr (Bld) [#/Vol]2.7 10 3/uL1.2-3.8[facility] Hospital - YoungstownLymphocytes/100 WBC Auto (Bld)Ordered By: Krishna Hernandez on 57-00-8048Rabkwjumahj/100 WBC (Bld)27.6 %20.5-60.0[facility] HospitalH Auto (RBC) [Entitic mass]Ordered By: Krishna Hernandez on 04-26-3259NNF (RBC) [Entitic mass]30.5 pg26.7-34.0[facility] YoungstownMCHC Auto (RBC) [Mass/Vol]Ordered By: Krishna Hernandez on 34-61-2629BQBI (RBC) [Mass/Vol]34.1 g/dL29.9-35.2FProtestant Deaconess HospitalMCV Auto (RBC) [Entitic vol] Ordered By: Krishna Hernandez on 95-12-2780OWT (RBC) [Entitic vol]89.5 fL81.0-99.0 [facility] YoungstownMonocytes Auto (Bld) [#/Vol]Ordered By: Krishna Hernandez on 98-25-6377Ctiwwmxvl (Bld) [#/Vol]0.5 10 3/uL0.3-0.8[facility] YoungstownMonocytes/100 WBC Auto (Bld)Ordered By: Krishna Hernandez on 26-33-2280Lxccpxddy/100 WBC (Bld)5.1 %1.7-12.0[facility] Neutrophils Auto (Bld) [#/Vol]Ordered By: Krishna Hernandez on 29-73-9437Fchfkbjfvgw (Bld) [#/Vol]6.3 10 3/uL1.4-6.5FProtestant Deaconess HospitalNeutrophils/100 WBC Auto (Bld)Ordered By: Krishna Hernandez on 07-81-7917Uowhsbeusvu/100 WBC (Bld) 65.2 %43.0-75.0[facility] YoungstownNo Panel InformationOrdered By: Krishna Hernandez on 57-34-5278Pnqsnmizwlx # (Auto)0.1 10 3/uL0.0-0.7FProtestant Deaconess HospitalImmature Granulocyte # (Auto)0.04 10 3/uLHigh0.00-0.03 [facility] YoungstownPlatelet mean volume Auto (Bld) [Entitic vol] Ordered By: Krishna Hernandez on 35-18-7871Azuyzigd mean volume (Bld) [Entitic vol] 9.5 fL9.5-13.5FProtestant Deaconess HospitalPlatelets Auto (Bld) [#/Vol] Ordered By: Krishna Hernandez on 35-82-1705Ikzdfqcfr (Bld) [#/Vol]343 10 3/sJ089-866 [facility] YoungstownRBC Auto (Bld) [#/Vol]Ordered By: Krishna Hernandez on 99-93-2173QPA (Bld) [#/Vol]4.59 10 6/uL4.20-5.40[facility] Anne Hospitalerum or plasma albumin/globulin mass ratioOrdered By: Krishna Hernandez on 99-92-1310Mbsbabw/Globulin [Mass ratio]1.1 {ratio}[facility] Hospitalerum or plasma anion gap determinationOrdered By: Krishna Hernandez on 85-33-7583Lrnok gap [Moles/Vol]11.0 mmol/LFProtestant Deaconess Hospital Laboratory - Chemistry and Chemistry - challengeOrdered By: Krishna Hernandez on 98-66-2593Grkzwgkkb Ql (U)NegativeNEGCommunity Memorial Hospital Glucose (U) [Mass/Vol]NegativeNEGCommunity Memorial HospitalKetones Ql (U)NegativeNEGCommunity Memorial HospitalpH (U)6.5 [pH]5.0-9.[address] [facility] Hospitalpecific gravity (U) [Rel density]1.010 1.005-1.025[facility] YoungstownUrobilinogen Qn (U)0.2 {Melissa'U}/dL0.2-1.0[facility] YoungstownLaboratory - Specimen informationOrdered By: Krishna Hernandez on 98-96-8277Medgwnzpip (U)CLEARCLEAR [facility] YoungstownColor (U)LT. YELLOWYELLOWSelect Medical Specialty Hospital - YoungstownLaboratory - UrinalysisOrdered By: Krishna Hernandez on 12-07-2024 Leukocyte esterase Test strip Ql (U)SMALLAbnormalNEGCommunity Memorial HospitalMucus Ql (Urine sed)NONE SEENNONE SEENSelect Medical Specialty Hospital - YoungstownNitrite Ql (U)NegativeNEGATIVESelect Medical Specialty Hospital - YoungstownProtein Ql (U)NegativeNEG/TRACESelect Medical Specialty Hospital - YoungstownNo Panel InformationOrdered By: Krishna Hernandez on 46-74-5442Lobnw BacteriaTRACE #/HPFAbnormalNONE SEEN [facility] YoungstownUrine Occult BloodMODERATEAbnormalNEGATIVE [facility] YoungstownUrine Other CastsNONE SEEN #/LPFNONE SEEN [facility] - YoungstownUrine Other CrystalsNone Seen #/HPFNone Seen [facility] YoungstownUrine RBC2-5 #/HPFAbnormal0-2FProtestant Deaconess HospitalUrine Squamous Epithelial CellsMODERATE #/LPFAbnormalNONE/RARE [facility] YoungstownUrine WBC0-2 #/HPFAbnormalNONE SEENSelect Medical Specialty Hospital - YoungstownUrine Cultureon 72-27-8867Pwoeqozw identified Cx Nom (U) 50,000 colonies/ml mixed bacterial skin contaminants 2 Days PERFORMED BY: [place] [address] PATHOLOGIST KILN BURNER ERIC BRANDT M.D.NormalThe Vidant Pungo Hospital Physician GroupComment on above: Performed By: #### CUU #### [facility] [address] [place] [address] USAALL CBC WITH AUTO DIFFon 27-84-7533FGHCNAPZV ABSOLUTE AUTO 0NOMS HealthcareBasophils/100 WBC (Bld)0.4 %0.2 - 2.0 %[facility] Eosinophils/100 WBC (Bld)2.4 %0.9 - 7.0 %NOMS HealthcareErythrocyte distribution width (RBC) [Ratio]12.4 %11.0 - 15.0 %NOMS HealthcareHematocrit (Bld) [Volume fraction]40.5 %36.0 - 48.0 %NOMS HealthcareHemoglobin (Bld) [Mass/Vol]13.7 g/dL 12.0 - 16.0 g/dLNOMS HealthcareIMMATURE GRANULOCYTES ABS AUTO0.02[facility] Immature granulocytes/100 WBC (Bld)0.4 %0.0 - 0.5 %NOMS HealthcareInterpretation and review of laboratory resultsAbnormalNOMS HealthcareLYMPHOCYTES ABSOLUTE AUTO1.8NOMS HealthcareLymphocytes/100 WBC (Bld)39.6 %20.5 - 60.0 %Select Specialty HospitalH (RBC) [Entitic mass]30.4 pg26.7 - 34.0 pgSelect Specialty HospitalHC (RBC) [Mass/Vol]33.8 g/dL29.9 - 35.2 g/dLSelect Specialty HospitalV (RBC) [Entitic vol]90 fL 81.0 - 99.0 fLPutnam County Memorial HospitalMONOCYTES ABSOLUTE AUTO0.4[facility] Monocytes/100 WBC (Bld)8 %1.7 - 12.0 %[facility] HospitalNEUTROPHILS ABSOLUTE AUTO 2.3NOChristian HospitalNeutrophils/100 WBC (Bld)49.2 %43.0 - 75.0 %[facility] Platelet mean volume (Bld) [Entitic vol]9.4 fLLow9.5 - 13.5 fLPutnam County Memorial HospitalTBH EO #0.1NOMS [facility] CenterTB [id number] [facility] CenterTB RBC4.5NOMS [facility], Cancer CenterTB WBC 4.6NOChristian HospitalCLINISYNCNOMS HealthcareBasophils Auto (Bld) [#/Vol]on 04-35-9777Ehzyrwvyw (Bld) [#/Vol]Automated basophil count0.0-0.1FProtestant Deaconess HospitalBasophils/100 WBC Auto (Bld)on 38-56-3057Lgzybiwdd/100 WBC (Bld)Automated basophil %0.2-2.0[facility] Eosinophils/100 WBC Auto (Bld)on 22-62-9520Zvadoeasnwh/100 WBC (Bld)Automated eosinophil %0.9-7.0[facility] - YoungstownErythrocyte distribution width Auto (RBC) [Ratio]on 62-16-1134Kwdjyvczmaa distribution width (RBC) [Ratio]Erythrocyte distribution width [Ratio] by Automated count11.0-15.0 [facility] - YoungstownEstimated glomerular filtration rate (GFR) non- Americanon 36-28-4538CVD/1.73 sq M.predicted among non-blacks MDRD (S/P/Bld) [Vol rate/Area]Estimated glomerular filtration rate (GFR) non->=60 mL/min/1.73m 2FProtestant Deaconess HospitalGlobulin Calc (S) [Mass/Vol]on 27-03-5451Hlrzsbvt (S) [Mass/Vol]Serum globulin measurement by calculation (mass/volume)[facility] YoungstownHematocrit Auto (Bld) [Volume fraction]on 46-08-3437Tacfwnrbhc (Bld) [Volume fraction]Hematocrit [Volume Fraction] of Blood by Automated count36.0-48.0[facility] - YoungstownHemoglobin [Mass/volume] in Bloodon 54-15-7523Jgaushhwvm (Bld) [Mass/Vol] Hemoglobin [Mass/volume] in Blood12.0-16.0[facility] Laboratory - Chemistry and Chemistry - challengeon 92-12-0952Sdfujhr [Mass/Vol] 3.7 g/dL3.4-5.0[facility] YoungstownALP [Catalytic activity/Vol]78 U/A99-692ElbdsfwfmSelect Medical Specialty Hospital - YoungstownALT [Catalytic activity/Vol]33 U/L 14-59[facility] YoungstownAST [Catalytic activity/Vol]17 U/L15-37 [facility] - YoungstownBilirubin [Mass/Vol]0.5 mg/dL0.2-1.0[facility] YoungstownCalcium [Mass/Vol]9.1 mg/dL8.5-10.1FProtestant Deaconess HospitalChloride [Moles/Vol]105 mmol/D17-760FrxqkcybuSelect Medical Specialty Hospital - YoungstownCO2 [Moles/Vol]27.4 mmol/L21.0-32.0[facility] Creatinine [Mass/Vol]0.76 mg/dL0.55-1.02[facility] GFR/1.73 sq M.predicted MDRD (S/P/Bld) [Vol rate/Area]mL/min/{1.73_m2}>=60 mL/min/1.73m 2FProtestant Deaconess HospitalGlucose [Mass/Vol]79 mg/xA35-705 [facility] YoungstownPotassium [Moles/Vol]4.1 mmol/L3.5-5.1FProtestant Deaconess HospitalProtein [Mass/Vol]6.7 g/dL6.4-8.2FUniversity Hospitals St. John Medical Centerodium [Moles/Vol]141 mmol/P070-390LftrmlnvwSelect Medical Specialty Hospital - YoungstownUrea nitrogen [Mass/Vol]8.0 mg/dL7.0-18.0[facility] Urea nitrogen/Creatinine [Mass ratio]10.5 mg/mgSelect Medical Specialty Hospital - [place] Laboratory - Hematology and Cell countson 74-80-8718Mdsnqigw granulocytes/100 WBC (Bld)0.2 %0.0-0.5FProtestant Deaconess HospitalLeukocytes [#/volume] corrected for nucleated erythrocytes in Blood by Automated counon 78-57-3780AEV corrected for nucl RBC Auto (Bld) [#/Vol]Leukocytes [#/volume] corrected for nucleated erythrocytes in Blood by Automated coun4.0-11.0[facility] - YoungstownLymphocytes Auto (Bld) [#/Vol]on 69-48-7910Ohzomghjbnf (Bld) [#/Vol]Lymphocytes [#/volume] in Blood by Automated count1.2-3.8[facility] - YoungstownLymphocytes/100 WBC Auto (Bld)on 08-08-2024 Lymphocytes/100 WBC (Bld)Lymphocytes/100 leukocytes in Blood by Automated count 20.5-60.0[facility] - YoungstownMCH Auto (RBC) [Entitic mass]on 25-48-9677QDD (RBC) [Entitic mass]MCH [Entitic mass] by Automated count26.7-34.0 [facility] YoungstownMCHC Auto (RBC) [Mass/Vol]on 55-19-1131EHXP (RBC) [Mass/Vol]MCHC [Mass/volume] by Automated count29.9-35.2FProtestant Deaconess HospitalMCV Auto (RBC) [Entitic vol]on 08-19-2695YFB (RBC) [Entitic vol] MCV [Entitic volume] by Automated count81.0-99.0[facility] [place]stownMonocytes Auto (Bld) [#/Vol]on 76-75-7142Vczzuxzsg (Bld) [#/Vol]Automated blood monocyte count0.3-0.8[facility] [place]stownMonocytes/100 WBC Auto (Bld)on 45-74-8407Zrszvvdaj/100 WBC (Bld)Automated monocyte %1.7-12.0 [facility] [place]stownNeutrophils Auto (Bld) [#/Vol]on 08-08-2024 Neutrophils (Bld) [#/Vol]Neutrophils [#/volume] in Blood by Automated count 1.4-6.5FProtestant Deaconess HospitalNeutrophils/100 WBC Auto (Bld)on 91-68-1681Bldvdmjcsmr/100 WBC (Bld)Automated neutrophil %43.0-75.0[facility] [place]No Panel Informationon 08-09-8436Vkhfmhhvhfo # (Auto)0.1 10 3/uL0.0-0.7FProtestant Deaconess HospitalImmature Granulocyte # (Auto)0.01 10 3/uL0.00-0.03[facility] [place]stownPlatelet mean volume Auto (Bld) [Entitic vol]on 35-10-0852Ojkesifz mean volume (Bld) [Entitic vol]Platelet mean volume [Entitic volume] in Blood by Automated count9.5-13.5FProtestant Deaconess HospitalPlatelets Auto (Bld) [#/Vol]on 26-76-6092Kzpjurens (Bld) [#/Vol]Platelets [#/volume] in Blood by Automated jpoax622-374FjzqnzrcpSelect Medical Specialty Hospital - YoungstownRBC Auto (Bld) [#/Vol]on 87-83-6693ECF (Bld) [#/Vol]Erythrocytes [#/volume] in Blood by Automated count4.20-5.40[facility] [place] Serum or plasma albumin/globulin mass ratioon 85-46-4802Ikqlqaa/Globulin [Mass ratio]Serum or plasma albumin/globulin mass ratioMercy Health St. Anne Hospitalerum or plasma anion gap determinationon 82-59-6683Hmown gap [Moles/Vol] Serum or plasma anion gap determinationSelect Medical Specialty Hospital - YoungstownUrine Cultureon 83-72-6066Odpvdkrb identified Cx Nom (U)Urine Culture Results 30,000 colonies/ml Mixed Bacterial Skin Contaminants 2 Days ORGANISM: Kamini albicans (O:CANALB) [place] Count <10,000 PERFORMED BY: [facility] [address] [place] [address] PATHOLOGIST KILN BURNER JAVIER HUIZAR M.D.NormalThe Vidant Pungo Hospital Physician GroupComment on above: Performed By: #### CUU #### [facility] [address] [place] [address] [facility]ITAL[facility] Pelvis transvaginalon 23-53-1225BGJA: US PELVIS TRANSVAGINAL HISTORY: Unable to see [...] not visualized. Electronically Signed:Electronically signed by NOMI YANG II, MD, PHD at 28-Jul-2024 08:45:45 AM [facility] IMAGINGSluss, MD Nomi - 07/28/2024 EXAM: US PELVIS [...] not visualized. Electronically Signed:Electronically signed by NOMI YANG II, MD, PHD at 28-Jul-2024 08:45:45 AM [facility] HealthcareUS Pelvis transvaginalOrdered By: Nomi Yang on 52-07-2021EWLVPutnam County Memorial Hospital Work Phone: IUD Removalon [id number] BoresYULIET 08/08/2024 11:15 AM IUD Removal Date/Time: 07/26/2024 2:33 PM Performed by: Jeremy Olmstead DO Authorized by: Jeremy Olmstead DO Consent: Consent obtained: Written Consent given by: Patient Procedure risks and benefits discussed: yes Patient questions answered: yes Patient agrees, verbalizes understanding, and wants to proceed: yes Educational handouts given: yes Instructions and paperwork completed: yes Boley protocol: Patient states understanding of procedure being [...] pelvic ultrasound. KUB ordered to view for placementCritical access hospitalUS PELVIS TRANSVAGINALon 31-91-7172ZP PELVIS TRANSVAGINALEXAM: US PELVIS TRANSVAGINAL HISTORY: Unable [...] not visualized. Electronically Signed:Electronically signed by NOMI YANG II, MD, PHD at 28-Jul-2024 08:45:45 AM [facility] CenterradiologyNormalNot AvailableComment on above:Order Comment: US PELVIS TRANSVAGINAL No LMP recorded. (Menstrual status: No Periods). 223 lb 1.9 ozUS Pelvis transvaginalon 13-06-5560Fxtjrrfzi Study observation (narrative)[facility] CBC AND AUTO DIFFon 47-47-2845Ccscdcmhctu distribution width (RBC) [Ratio]12.4 % Qqmeoe69.5-15.0ProHarris Health System Ben Taub HospitalComment on above:Performed By: #### CBCA, BMP #### [facility] ([id number]) [address] [place] [address] 17552Huhjkrcydy (Bld) [Volume fraction]43.3 %Sgcwtc75-48KjrBmseqk [facility]remont HospitalComment on above:Performed By: #### CBCA, BMP #### [facility] ([id number]) [address] [place] [address] 62563Ibkoncvwmq (Bld) [Mass/Vol]14.5 g/fRSorinx32.7-15.5ProMedLos Angeles County High Desert HospitalComment on above:Performed By: #### CBCA, BMP #### [facility] ([id number]) [address] [place] [address] 24230Xbrpvtigwiw (Bld) [#/Vol]4.7 10*3/uLHigh1.0-3.5ProMedica Indian Valley HospitalComment on above:Performed By: #### VALE, BMP #### [facility] ([id number]) [address] [place] [address] 04240Cxponcnznxy/100 WBC (Bld)33.0 %NormalUniversity Hospitals Ahuja Medical Center Comment on above:Performed By: #### CBCShakira, BMP #### [facility] ([id number]) [address] [place] [address] 25831AAG (RBC) [Entitic mass]29.8 xrEbiotm51-78FzzSyecgrUniversity Hospitals Ahuja Medical CenterComment on above:Performed By: #### VALE, BMP #### [facility] ([id number]) [address] [place] [address] 59543SPHR (RBC) [Mass/Vol]33.5 g/iSAcsqyy76-88LlwYyhxfnHarris Health System Ben Taub HospitalComment on above:Performed By: #### VALE, BMP #### [facility] ([id number]) [address] [place] [address] 87810UPM (RBC) [Entitic vol]89 lWPikdtd94-176OkiDawoboUniversity Hospitals Ahuja Medical CenterComment on above:Performed By: #### CBCShakira, BMP #### [facility] ([id number]) [address] [place] [address] 81144Ngscpdvxx (Bld) [#/Vol]0.7 10*3/uLNormal0-0.9University Hospitals Ahuja Medical CenterComment on above:Performed By: #### CBCShakira, BMP #### [facility] ([id number]) [address] [place] [address] 16955Xlrcgfrhy/100 WBC (Bld)5.0 %[facility] Comment on above:Performed By: #### CBCA, BMP #### [facility] ([id number]) [address] [place] [address] 42125Dcgnwopjeti (Bld) [#/Vol]8.8 10*3/uLHigh1.5-6.6University Hospitals Ahuja Medical CenterComment on above:Performed By: #### CBCA, BMP #### [facility] ([id number]) [address] [place] [address] 14365Mkeaxyph mean volume (Bld) [Entitic vol]7.8 fLNormal7-12 ProMedica Indian Valley HospitalComment on above:Performed By: #### CBCA, BMP #### [facility] ([id number]) [address] [place] [address] 02877Jyvbjvexy (Bld) [#/Vol]374 10*3/mQIziaoj457-508WdnHsqmaa [facility]ont HospitalComment on above:Performed By: #### CBCA, BMP #### [facility] ([id number]) [address] [place] [address] 37659UYH COUNT4.86 X10E12/LNormal3.80-5.20[facility] Comment on above:Performed By: #### CBCA, BMP #### [facility] ([id number]) [address] [place] [address] 06131QDG morphology finding Nom (Bld)NORMALNoalUniversity Hospitals Ahuja Medical CenterComment on above:Performed By: #### CBCA, BMP #### [facility] ([id number]) [address] [place] [address] 82813TOR UTLUZILMGN45.0 %NormalUniversity Hospitals Ahuja Medical CenterComment on above:Performed By: #### CBCA, BMP #### [facility] ([id number]) [address] [place] [address] 64379GPW (Bld) [#/Vol]14.2 10*3/uLHigh4.0-11.0ProHarris Health System Ben Taub HospitalComment on above:Performed By: #### VALE, BMP #### [facility] ([id number]) [address] [place] [address] 25732TSYVKGZPXZFOQ METABOLIC PANELon 31-42-8451Dqxsfvv [Mass/Vol]4.0 g/dLNormal3.2-5.3PSelect Medical Specialty Hospital - AkronComment on above:Performed By: #### VALE, BMP #### [facility] ([id number]) [address] [place] [address], [place] [address]PEN [Catalytic activity/Vol]55 U/HNkriuf72-178ItvRyrzmuHarris Health System Ben Taub HospitalComment on above:Performed By: #### VALE, BMP #### [facility] ([id number]) [address] [place] [address] 28990OSC [Catalytic activity/Vol]132 U/LHigh0-31PSelect Medical Specialty Hospital - AkronComment on above:Performed By: #### VALE, BMP #### [facility] ([id number]) [address] [place] [address] 53674Aboui gap [Moles/Vol]6 mmol/LNormal5-15ProHarris Health System Ben Taub HospitalComment on above:Performed By: #### VALE, BMP #### [facility] ([id number]) [address] [place] [address] 89830INB [Catalytic activity/Vol]33 U/LNormal0-41ProHarris Health System Ben Taub HospitalComment on above:Performed By: #### VALE, BMP #### [facility] ([id number]) [address] [place] [address] 70251Rkdoaysdy [Mass/Vol]0.8 mg/dLNormal0.3-1.2PSelect Medical Specialty Hospital - AkronComment on above:Performed By: #### VALE, BMP #### [facility] ([id number]) [address] [place] [address] 11821Trxzxiv [Mass/Vol]8.4 mg/dLLow8.5-10.5PSelect Medical Specialty Hospital - AkronComment on above:Performed By: #### VALE, BMP #### [facility] ([id number]) [address] [place] [address] 91429Vkkfpqxz [Moles/Vol]104 mmol/DRajxkn43-977HeiMfgzanHarris Health System Ben Taub HospitalComment on above:Performed By: #### VALE, BMP #### [facility] ([id number]) [address] [place] [address] 36397LW3 [Moles/Vol]23 mmol/TAxsffc41-14UgjCnlhjdSelect Medical Specialty Hospital - [facility] Comment on above:Performed By: #### VALE, BMP #### [facility] ([id number]) [address] [place] [address] 80068Ezdwdpdhgx [Mass/Vol]0.69 mg/dLNormal0.40-1.00University Hospitals Ahuja Medical CenterComment on above:Result Comment: METHOD TRACEABLE TO IDMS STANDARD Performed By: #### VALE, BMP #### [facility] ([id number]) [address] [place] [address] 54242uVEN (CKD-EPI) NON-RACE DEPENDENT>90Normal>59ProHarris Health System Ben Taub HospitalComment on above:Result Comment: Reported eGFR is based on the CKD-EPI 2021 equation that does not use a race coefficient.Performed By: #### VALE, BMP #### [facility] ([id number]) [address] [place] [address] 12691Bqljjtx [Mass/Vol]92 mg/eGJffrdi89-82JogBnxlnuUniversity Hospitals Ahuja Medical Center Comment on above:Performed By: #### VALE, BMP #### [facility] ([id number]) [address] [place] [address], [place] [address]Nhslgmjlz [Moles/Vol]4.0 mmol/LNormal3.5-5.0ProHarris Health System Ben Taub HospitalComment on above:Performed By: #### CBCA, BMP #### [facility] ([id number]) [address] [place] [address] 85038Aituete [Mass/Vol]6.8 g/dLNormal6.0-8.0ProHarris Health System Ben Taub HospitalComment on above:Performed By: #### CBCA, BMP #### [facility] ([id number]) [address] [place] [address] 70143Qjxnhc [Moles/Vol]133 mmol/SEnn796-374PskGqahvhHarris Health System Ben Taub HospitalComment on above:Performed By: #### CBCA, BMP #### [facility] ([id number]) [address] [place] [address] 65187Bbxx nitrogen [Mass/Vol]15 mg/dLNormal5-23ProHarris Health System Ben Taub HospitalComment on above:Performed By: #### CBCA, BMP #### [facility] ([id number]) [address] [place] [address] 67316JN NECK SOFT TISSUE W CONTon 80-46-5604FU NECK SOFT TISSUE W CONTCT NECK SOFT [...] by Kam Barkley MD on 06/30/2024 11:48 AMNormalUniversity Hospitals Ahuja Medical Center CBC AND AUTO DIFFon 89-99-9116VPKLDSWI BASOPHIL0.0 X10E9/LNormal0.0-0.2PSelect Medical Specialty Hospital - AkronComment on above:Performed By: #### CBCA, BMP #### [facility] ([id number]) [address] [place] [address] 16958VAGWODAU NEUTROPHIL9.4 X10E9/LHigh1.5-6.6University Hospitals Ahuja Medical CenterComment on above:Performed By: #### CBCA, BMP #### [facility] ([id number]) [address] [place] [address] 56186Zevvvopvp/100 WBC (Bld)0.3 %NormalUniversity Hospitals Ahuja Medical Center Comment on above:Performed By: #### CBCA, BMP #### [facility] ([id number]) [address] [place] [address], [place] [address]Pcoqcbrypdr (Bld) [#/Vol]0.0 10*3/uLNormal0.0-0.4University Hospitals Ahuja Medical CenterComment on above:Performed By: #### CBCA, BMP #### [facility] ([id number]) [address] [place] [address] 20578Ijuzrdhtugz/100 WBC (Bld)0.0 %NormalProHarris Health System Ben Taub Hospital Comment on above:Performed By: #### CBCShakira, BMP #### [facility] ([id number]) [address] [place] [address] 13919Pmxlkqitltj distribution width (RBC) [Ratio]12.6 %Normal 11.5-15.0University Hospitals Ahuja Medical CenterComment on above:Performed By: #### CBCA, BMP #### [facility] ([id number]) [address] [place] [address] 82788Fjzlitdtcp (Bld) [Volume fraction]39.6 %Bohpjf34-33IhvIcyycjHarris Health System Ben Taub HospitalComment on above:Performed By: #### CBCA, BMP #### [facility] ([id number]) [address] [place] [address] 56906Kespzkfujt (Bld) [Mass/Vol]13.3 g/xAWebfvy09.7-15.5PSelect Medical Specialty Hospital - AkronComment on above:Performed By: #### CBCA, BMP #### [facility] ([id number]) [address] [place] [address] 01600Macpccfugas (Bld) [#/Vol]1.9 10*3/uLNormal1.0-3.5PSelect Medical Specialty Hospital - AkronComment on above:Performed By: #### CBCA, BMP #### [facility] ([id number]) [address] [place] [address] 53713Onclalhktdm/100 WBC (Bld)16.4 %[facility] Comment on above:Performed By: #### CBCA, BMP #### [facility] ([id number]) [address] [place] [address] 48602ZWN (RBC) [Entitic mass]29.8 haQabvtm67-87PbyZbjaifUniversity Hospitals Ahuja Medical CenterComment on above:Performed By: #### CBCA, BMP #### [facility] ([id number]) [address] [place] [address] 31269PPZL (RBC) [Mass/Vol]33.6 g/eVZysksg55-31WhcOyfzvyHarris Health System Ben Taub HospitalComment on above:Performed By: #### CBCA, BMP #### [facility] ([id number]) [address] [place] [address] 30929TTP (RBC) [Entitic vol]89 jRJthkwr74-044HefRoyaco Fremont HospitalComment on above:Performed By: #### CBCA, BMP #### [facility] ([id number]) [address] [place] [address] 32230Romldtcno (Bld) [#/Vol]0.4 10*3/uLNormal0-0.9[facility]huja Medical CenterComment on above:Performed By: #### CBCA, BMP #### [facility] ([id number]) [address] [place] [address] 74241Mchbvtbgb/100 WBC (Bld)3.5 %[facility] Comment on above:Performed By: #### CBCA, BMP #### [facility] ([id number]) [address] [place] [address] 85231Vsoqtkknbwh/100 WBC (Bld)79.8 %[facility] Comment on above:Performed By: #### CBCA, BMP #### [facility] ([id number]) [address] [place] [address] 34564Fbhwkovs mean volume (Bld) [Entitic vol]8.0 fLNormal7-12 [facility]huja Medical CenterComment on above:Performed By: #### VALE, BMP #### [facility] ([id number]) [address] [place] [address] 40734Uruqmoqai (Bld) [#/Vol]342 10*3/oKAqvmez818-660HowZqdlxm [facility] HospitalComment on above:Performed By: #### VALE, BMP #### [facility] ([id number]) [address] [place] [address] 90652KIF COUNT4.47 X10E12/LNormal3.80-5.20[facility] Comment on above:Performed By: #### VALE, BMP #### [facility] ([id number]) [address] [place] [address] 60536DZK (Bld) [#/Vol]11.8 10*3/uLHigh4.0-11.0[facility]ja Medical CenterComment on above:Performed By: #### VALE, BMP #### [facility] ([id number]) [address] [place] [address] 22258HLJWHKJXUYARC METABOLIC PANELon 28-24-2333Cxitmdv [Mass/Vol]3.9 g/dLNormal3.2-5.3PSelect Medical Specialty Hospital - AkronComment on above:Performed By: #### VALE, BMP #### [facility] ([id number]) [address] [place] [address] 31392OAT [Catalytic activity/Vol]59 U/MXpwkrn87-835MyiNrcobiHarris Health System Ben Taub HospitalComment on above:Performed By: #### AVLE, BMP #### [facility] ([id number]) [address] [place] [address] 75931QFX [Catalytic activity/Vol]58 U/LHigh0-31PSelect Medical Specialty Hospital - AkronComment on above:Performed By: #### VALE, BMP #### [facility] ([id number]) [address] [place] [address], [place] [address]Mtbwn gap [Moles/Vol]10 mmol/LNormal5-15ProHarris Health System Ben Taub HospitalComment on above:Performed By: #### VALE, BMP #### [facility] ([id number]) [address] [place] [address], [place] [address]YAM [Catalytic activity/Vol]32 U/LNormal0-41ProHarris Health System Ben Taub HospitalComment on above:Performed By: #### VALE, BMP #### [facility] ([id number]) [address] [place] [address], [place] [address]Cyxeczemr [Mass/Vol]0.7 mg/dLNormal0.3-1.2PSelect Medical Specialty Hospital - AkronComment on above:Performed By: #### VALE, BMP #### [facility] ([id number]) [address] [place] [address], [place] [address]Ghykltw [Mass/Vol]8.9 mg/dLNormal8.5-10.5PSelect Medical Specialty Hospital - AkronComment on above:Performed By: #### VALE, BMP #### [facility] ([id number]) [address] [place] [address], [place] [address]Wjwceihi [Moles/Vol]103 mmol/LDvsvuo59-856QanYhqyryHarris Health System Ben Taub HospitalComment on above:Performed By: #### VALE, BMP #### [facility] ([id number]) [address] [place] [address], [place] [address]TK5 [Moles/Vol]22 mmol/BEpjqgn61-12TgeCjjgplSelect Medical Specialty Hospital - [facility]ron Comment on above:Performed By: #### VALE, BMP #### [facility] ([id number]) [address] [place] [address], [place] [address]Fxjtdcqqfe [Mass/Vol]0.59 mg/dLNormal0.40-1.00ProHarris Health System Ben Taub HospitalComment on above:Result Comment: METHOD TRACEABLE TO IDMS STANDARD Performed By: #### VALE BMP #### [facility] ([id number]) [address] [place] [address] 30028rQOV (CKD-EPI) NON-RACE DEPENDENT>90Normal>59ProHarris Health System Ben Taub HospitalComment on above:Result Comment: Reported eGFR is based on the CKD-EPI 2020 equation that does not use a race coefficient.Performed By: #### CAMRON COLLAZO #### [facility] ([id number]) [address] [place] [address] 95950Folmoxs [Mass/Vol]132 mg/oMUiwa95-74DpkZxvvxmHarris Health System Ben Taub Hospital Comment on above:Performed By: #### VALE, BMP #### [facility] ([id number]) [address] [place] [address] 18286Folnnqpkx [Moles/Vol]4.0 mmol/LNormal3.5-5.0ProHarris Health System Ben Taub HospitalComment on above:Performed By: #### VALE, BMP #### [facility] ([id number]) [address] [place] [address] 27219Xzyvihi [Mass/Vol]6.7 g/dLNormal6.0-8.0ProHarris Health System Ben Taub HospitalComment on above:Performed By: #### VALE, BMP #### [facility] ([id number]) [address] [place] [address] 38880Fetkqt [Moles/Vol]135 mmol/VCujdhh876-472XnxKhvttk [facility] HospitalComment on above:Performed By: #### VALE, BMP #### [facility] ([id number]) [address] [place] [address] 05816Qcye nitrogen [Mass/Vol]15 mg/dLNormal5-23[facility]ja Medical CenterComment on above:Performed By: #### CBCA, BMP #### [facility] ([id number]) [address] [place] [address], [place] [address]HWFPPIRAXzu 05-12-2057Jrgcvhzal [Mass/Vol]2.3 mg/dLNormal 1.8-2.6ProHarris Health System Ben Taub HospitalComment on above:Performed By: #### CBCA, BMP #### [facility] ([id number]) [address] [place] [address], [place] [address]NZY AND AUTO DIFFon 04-71-0541AKKSRZFC BASOPHIL0.1 X10E9/L Normal0.0-0.2PSelect Medical Specialty Hospital - AkronComment on above:Performed By: #### CBCA, BMP #### [facility] ([id number]) [address] [place] [address] 11771KCPGPJVJ NEUTROPHIL7.8 X10E9/LHigh1.5-6.6[facility]ja Medical CenterComment on above:Performed By: #### CBCA, BMP #### [facility] ([id number]) [address] [place] [address] 81359Cucywwjws/100 WBC (Bld)0.7 %[facility] Comment on above:Performed By: #### CBCA, BMP #### [facility] ([id number]) [address] [place] [address] 02593Azlyocmrtuc (Bld) [#/Vol]0.0 10*3/uLNormal0.0-0.4[facility] Medical CenterComment on above:Performed By: #### CBCA, BMP #### [facility] ([id number]) [address] [place] [address] 51543Rqzkbgpdtsq/100 WBC (Bld)0.1 %[facility] Comment on above:Performed By: #### CBCShakira, BMP #### [facility] ([id number]) [address] [place] [address] 93258Rckokbfbmor distribution width (RBC) [Ratio]12.7 %Normal 11.5-15.0[facility]ja Medical CenterComment on above:Performed By: #### CBCShakira, BMP #### [facility] ([id number]) [address] [place] [address] 37815Iyfavhncmc (Bld) [Volume fraction]38.3 %Gyzepr84-57EmkTatqcdHarris Health System Ben Taub HospitalComment on above:Performed By: #### CBCShakira, BMP #### [facility] ([id number]) [address] [place] [address] 97184Mrfhuekrsh (Bld) [Mass/Vol]13.2 g/xDLfrzei87.7-15.5ProMedLos Angeles County High Desert HospitalComment on above:Performed By: #### CBCA, BMP #### [facility] ([id number]) [address] [place] [address] 82421Pkzkujldvcx (Bld) [#/Vol]1.4 10*3/uLNormal1.0-3.5PSelect Medical Specialty Hospital - AkronComment on above:Performed By: #### CBCShakira, BMP #### [facility] ([id number]) [address] [place] [address] 40533Vywqzflzrby/100 WBC (Bld)14.5 %NormalUniversity Hospitals Ahuja Medical Center Comment on above:Performed By: #### CBCA, BMP #### [facility] ([id number]) [address] [place] [address] 36900TMW (RBC) [Entitic mass]30.5 fxEkdpfc16-18QozYodnqcHarris Health System Ben Taub HospitalComment on above:Performed By: #### CBCA, BMP #### [facility] ([id number]) [address] [place] [address] 78356RNHN (RBC) [Mass/Vol]34.5 g/xHWyodxk93-64UjrVwpejyUniversity Hospitals Ahuja Medical CenterComment on above:Performed By: #### CBCShakira, BMP #### [facility] ([id number]) [address] [place] [address] 99904JEJ (RBC) [Entitic vol]88 nLRzmriw97-539TqzIpqwez [facility] HospitalComment on above:Performed By: #### CBCShakira, BMP #### [facility] ([id number]) [address] [place] [address] 17448Jhbbefiqz (Bld) [#/Vol]0.3 10*3/uLNormal0-0.9[facility] Medical CenterComment on above:Performed By: #### CBCShakira, BMP #### [facility] ([id number]) [address] [place] [address] 14884Spzkgrufq/100 WBC (Bld)3.3 %[facility] Comment on above:Performed By: #### CBCShakira, BMP #### [facility] ([id number]) [address] [place] [address] 02105Ywglahqptol/100 WBC (Bld)81.4 %[facility] Comment on above:Performed By: #### CBCA, BMP #### [facility] ([id number]) [address] [place] [address] 05455Cbafadfs mean volume (Bld) [Entitic vol]8.2 fLNormal7-12 [facility] CenterComment on above:Performed By: #### CBCA, BMP #### [facility] ([id number]) [address] [place] [address] [phone] (Bld) [#/Vol]321 10*3/rNIfseqw162-432GirTqemql [facility]remont HospitalComment on above:Performed By: #### VALE, BMP #### [facility] ([id number]) [address] [place] [address] 47383YAW COUNT4.33 X10E12/LNormal3.80-5.20[facility] on above:Performed By: #### VALE, BMP #### [facility] ([id number]) [address] [place] [address] 54602TOM (Bld) [#/Vol]9.6 10*3/uLNormal4.0-11.0ProHarris [facility] System Ben Taub HospitalComment on above:Performed By: #### VALE, BMP #### [facility] ([id number]) [address] [place] [address] 51519DBTNKFKYNCCDH METABOLIC PANELon [id number] [Mass/Vol]3.6 g/dLNormal3.2-5.3PSelect Medical Specialty Hospital - AkronComment on above:Performed By: #### VALE, BMP #### [facility] ([id number]) [address] [place] [address] 12888YUD [Catalytic activity/Vol]59 U/JXflxpo95-814HbtGceblqHarris Health System Ben Taub HospitalComment on above:Performed By: #### VALE, BMP #### [facility] ([id number]) [address] [place] [address] 33494UQP [Catalytic activity/Vol]36 U/LHigh0-31PSelect Medical Specialty Hospital - AkronComment on above:Performed By: #### VAEL, BMP #### [facility] ([id number]) [address] [place] [address] 75537Kbdfb gap [Moles/Vol]8 mmol/LNormal5-15ProHarris [facility] Ben Taub HospitalComment on above:Performed By: #### VALE, BMP #### [facility] ([id number]) [address] [place] [address] 23834NWE [Catalytic activity/Vol]21 U/LNormal0-41[facility] Medical CenterComment on above:Performed By: #### VALE, BMP #### [facility] ([id number]) [address] [place] [address], [place] [address]Qjnjwgxtz [Mass/Vol]0.7 mg/dLNormal0.3-1.2PSelect Medical Specialty Hospital - AkronComment on above:Performed By: #### VALE, BMP #### [facility] ([id number]) [address] [place] [address], [place] [address]Fzgyqyn [Mass/Vol]8.7 mg/dLNormal8.5-10.5PSelect Medical Specialty Hospital - AkronComment on above:Performed By: #### VALE, BMP #### [facility] ([id number]) [address] [place] [address], [place] [address]Iasgwlkn [Moles/Vol]108 mmol/OLjgbyy21-114YpdJnhcchUniversity Hospitals Ahuja Medical CenterComment on above:Performed By: #### VALE, BMP #### [facility] ([id number]) [address] [place] [address] 66692QA2 [Moles/Vol]21 mmol/LItn88-93QaeIdkhjaSelect Medical Specialty Hospital - Akron Comment on above:Performed By: #### VALE, BMP #### [facility] ([id number]) [address] [place] [address], [place] [address]Paywnkdgzf [Mass/Vol]0.55 mg/dLNormal0.40-1.00ProHarris Health System Ben Taub HospitalComment on above:Result Comment: METHOD TRACEABLE TO IDMS STANDARD Performed By: #### VALE, BMP #### [facility] ([id number]) [address] [place] [address], [place] [address]dXWJ (CKD-EPI) NON-RACE DEPENDENT>90Normal>59ProHarris Health System Ben Taub HospitalComment on above:Result Comment: Reported eGFR is based on the CKD-EPI 2020 equation that does not use a race coefficient.Performed By: #### VALE, BMP #### [facility] ([id number]) [address] [place] [address] 11620Nlavscu [Mass/Vol]141 mg/vZVyuf40-36CsjIxivfaUniversity Hospitals Ahuja Medical Center Comment on above:Performed By: #### VALE, BMP #### [facility] ([id number]) [address] [place] [address] 61714Brxicrcxj [Moles/Vol]3.8 mmol/LNormal3.5-5.0ProHarris Health System Ben Taub HospitalComment on above:Performed By: #### VALE, BMP #### [facility] ([id number]) [address] [place] [address] 81288Tfmband [Mass/Vol]6.5 g/dLNormal6.0-8.0ProHarris Health System Ben Taub HospitalComment on above:Performed By: #### VALE, BMP #### [facility] ([id number]) [address] [place] [address] 02094Bgikdw [Moles/Vol]137 mmol/IHkjqvb959-431TwcRyuzug Fremont HospitalComment on above:Performed By: #### VALE, BMP #### [facility] ([id number]) [address] [place] [address] 91993Drbq nitrogen [Mass/Vol]11 mg/dLNormal5-23ProHarris Health System Ben Taub HospitalComment on above:Performed By: #### VALE, BMP #### [facility] ([id number]) [address] [place] [address] 01528GJ NECK SOFT TISSUE W CONTon 96-79-6131OT NECK SOFT TISSUE W CONTCT NECK SOFT [...] within the supraglottic, glottic or subglottic larynx. Chief Technician X Ray/Parapharyngeal: Muscles of mastication are unremarkable. Parapharyngeal fat [...] Finalized by Nawaf Brody on 06/27/2024 10:40 AMNormalProMedica Indian Valley HospitalMAGNESIUMon 01-40-5131Ybvzndrpv [Mass/Vol]2.0 mg/dLNormal1.8-2.6 [facility] Valley HospitalComment on above:Performed By: #### VALE BMP #### [facility] ([id number]) [address] [place] [address] 25426JIQYYLJCRwm 30-33-3116Xinvdmnyt [Moles/Vol]3.9 mmol/LNormal 3.5-5.0ProHarris Health System Ben Taub HospitalComment on above:Performed By: #### VALE BMP #### [facility] ([id number]) [address] [place] [address] 86404Bscsxxof I.cardiac High sensitivity method [Mass/Vol]on HOUR TROP I, HIGH SENSITIVITY<2Normal<16ProHarris [facility] Comment on above:Performed By: #### CAMRON COLLAZO #### [facility] ([id number]) [address] [place] [address] 91963EF CHEST 1 VWon 92-53-3854CY CHEST 1 VWXR CHEST 1 VW EXAM: XR CHEST 1 VW CLINICAL INFORMATION: CP. COMPARISON: 03/23/2017 FINDINGS: There are no pleural effusions. The lungs are clear and well aerated. Heart size is within normal limits. IMPRESSION: 1. No acute cardiopulmonary disease. Finalized by Kam Barkley MD on 06/27/2024 12:38 PMNormalUniversity Hospitals Ahuja Medical Center CBC AND AUTO DIFFon 95-83-0429SCGGZBZL BASOPHIL0.0 X10E9/LNormal0.0-0.2ProMedLos Angeles County High Desert HospitalComment on above:Performed By: #### VALE CMP, 61605-2 #### [facility] ([id number]) [address] [place] [address] 43242RGQPFPZA NEUTROPHIL6.0 X10E9/LNormal1.5-6.6ProHarris Health System Ben Taub HospitalComment on above:Performed By: #### VALE CMP, 42598-2 #### [facility] ([id number]) [address] [place] [address] 18245Spjuhwmte/100 WBC (Bld)0.2 %NormalUniversity Hospitals Ahuja Medical Center Comment on above:Performed By: #### CBCSHEA Lazar, 02060-3 #### [facility] ([id number]) [address] [place] [address] 57115Hebkvuurdwl (Bld) [#/Vol]0.0 10*3/uLNormal0.0-0.4University Hospitals Ahuja Medical CenterComment on above:Performed By: #### CBCShakira, CMP, #### [facility] ([id number]) [address] [place] [address] 01958Rrxywbowxek/100 WBC (Bld)0.4 %[facility] Comment on above:Performed By: #### CBCSHEA Lazar, #### [facility] ([id number]) [address] [place] [address] 57894Uftbjljszxr distribution width (RBC) [Ratio]12.6 %Normal 11.5-15.0University Hospitals Ahuja Medical CenterComment on above:Performed By: #### CBCShakira CMP, #### [facility] ([id number]) [address] [place] [address] 91689Zfkeirfnfa (Bld) [Volume fraction]40.5 %Znjujq69-65XnyZoxhvjHarris Health System Ben Taub HospitalComment on above:Performed By: #### CBCA, CMP, #### [facility] ([id number]) [address] [place] [address] 87074Txkhdupryq (Bld) [Mass/Vol]13.7 g/kGGcfiuu44.7-15.5PSelect Medical Specialty Hospital - AkronComment on above:Performed By: #### CBCA, CMP, #### [facility] ([id number]) [address] [place] [address] 91458Hqtzrxarqwl (Bld) [#/Vol]1.1 10*3/uLNormal1.0-3.5ProMedLos Angeles County High Desert HospitalComment on above:Performed By: #### SHEA COLLAZO, 76593-8 #### [facility] ([id number]) [address] [place] [address] 26118Nlsudjwfulz/100 WBC (Bld)15.5 %NormalProHarris Health System Ben Taub Hospital Comment on above:Performed By: #### SHEA COLLAZO, 58849-6 #### [facility] ([id number]) [address] [place] [address] 79731XIX (RBC) [Entitic mass]30.1 haYqnvxw54-55DtsNfprbcUniversity Hospitals Ahuja Medical CenterComment on above:Performed By: #### SHEA COLLAZO, 34049-4 #### [facility] ([id number]) [address] [place] [address] 46582KBGO (RBC) [Mass/Vol]33.8 g/pNYrzphw13-72LqmTaqcbbHarris Health System Ben Taub HospitalComment on above:Performed By: #### VALE [facility], 22728-1 #### [facility] ([id number]) [address] [place] [address] 16895VUN (RBC) [Entitic vol]89 qJQklgnf55-260IfeElnlej [facility]remont HospitalComment on above:Performed By: #### CBCShakira, CMP, 82725-7 #### [facility] ([id number]) [address] [place] [address] 00438Nlriquwyc (Bld) [#/Vol]0.1 10*3/uLNormal0-0.9University Hospitals Ahuja Medical CenterComment on above:Performed By: #### CBCShakira CMP, #### [facility] ([id number]) [address] [place] [address] 64920Hxljtotzt/100 WBC (Bld)1.8 %NormalUniversity Hospitals Ahuja Medical Center Comment on above:Performed By: #### CBCShakira CMP, #### [facility] ([id number]) [address] [place] [address] 01288Rtigiprjjkb/100 WBC (Bld)82.1 %[facility] Comment on above:Performed By: #### CBCShakira, CMP, #### [facility] ([id number]) [address] [place] [address] 74030Uajslwes mean volume (Bld) [Entitic vol]8.3 fLNormal7-12 University Hospitals Ahuja Medical CenterComment on above:Performed By: #### VALE, CMP, #### [facility] ([id number]) [address] [place] [address] 87043Fzyarjppr (Bld) [#/Vol]265 10*3/zAQdrhlt053-869IqnDndxziUniversity Hospitals Ahuja Medical CenterComment on above:Performed By: #### VALE, CMP, #### [facility] ([id number]) [address] [place] [address] 26039ZLS COUNT4.55 X10E12/LNormal3.80-5.20[facility] Comment on above:Performed By: #### CBCA, CMP, #### [facility] ([id number]) [address] [place] [address] 55688UJH (Bld) [#/Vol]7.3 10*3/uLNormal4.0-11.0University Hospitals Ahuja Medical CenterComment on above:Performed By: #### CBCA, CMP, #### [facility] ([id number]) [address] [place] [address] 26427IRXBCDBWMUVFE METABOLIC PANELon 88-44-9774Vdzxvya [Mass/Vol]4.0 g/dLNormal3.2-5.3PSelect Medical Specialty Hospital - AkronComment on above:Performed By: #### SHEA COLLAZO, #### [facility] ([id number]) [address] [place] [address], [place] [address]KZO [Catalytic activity/Vol]67 U/PDpqcsb32-010SbgOulsruHarris Health System Ben Taub HospitalComment on above:Performed By: #### SHEA COLLAZO, #### [facility] ([id number]) [address] [place] [address], [place] [address]TMC [Catalytic activity/Vol]43 U/LHigh0-31PSelect Medical Specialty Hospital - AkronComment on above:Performed By: #### SHEA COLLAZO, #### [facility] ([id number]) [address] [place] [address], [place] [address]Taurb gap [Moles/Vol]10 mmol/LNormal5-15ProHarris Health System Ben Taub HospitalComment on above:Performed By: #### SHEA COLLAZO, #### [facility] ([id number]) [address] [place] [address], [place] [address]GYA [Catalytic activity/Vol]33 U/LNormal0-41ProHarris Health System Ben Taub HospitalComment on above:Performed By: #### SHEA COLLAZO, #### [facility] ([id number]) [address] [place] [address], [place] [address]Ngwcrueuo [Mass/Vol]0.4 mg/dLNormal0.3-1.2PSelect Medical Specialty Hospital - AkronComment on above:Performed By: #### SHEA COLLAZO, #### [facility] ([id number]) [address] [place] [address], [place] [address]Qwujjbc [Mass/Vol]8.9 mg/dLNormal8.5-10.5PSelect Medical Specialty Hospital - AkronComment on above:Performed By: #### SHEA COLLAZO, 13570-4 #### [facility] ([id number]) [address] [place] [address] 81153Uiytmyuu [Moles/Vol]106 mmol/IGxfwmk27-090RziFnaqnqUniversity Hospitals Ahuja Medical CenterComment on above:Performed By: #### SHEA COLLAZO, 23804-1 #### [facility] ([id number]) [address] [place] [address] 88032GH5 [Moles/Vol]20 mmol/TKpz28-06BptDfzmerSelect Medical Specialty Hospital - Akron Comment on above:Performed By: #### SHEA COLLAZO, 39255-1 #### [facility] ([id number]) [address] [place] [address] 05905Pdzospfjjv [Mass/Vol]0.57 mg/dLNormal0.40-1.00University Hospitals Ahuja Medical CenterComment on above:Result Comment: METHOD TRACEABLE TO IDMS STANDARD Performed By: #### SHEA COLLAZO, 91845-1 #### [facility] ([id number]) [address] [place] [address] 74009oTIJ (CKD-EPI) NON-RACE DEPENDENT>90Normal>59ProHarris Health System Ben Taub HospitalComment on above:Result Comment: Reported eGFR is based on the CKD-EPI 2020 equation that does not use a race coefficient.Performed By: #### SHEA COLLAZO, 05413-4 #### [facility] ([id number]) [address] [place] [address] 86181Rteglvt [Mass/Vol]129 mg/yZHszk35-01ZxaAcbnjkUniversity Hospitals Ahuja Medical Center Comment on above:Performed By: #### SHEA COLLAZO, 72938-0 #### [facility] ([id number]) [address] [place] [address] 80294Pvsknqjwv [Moles/Vol]4.1 mmol/LNormal3.5-5.0University Hospitals Ahuja Medical CenterComment on above:Performed By: #### SHEA COLLAZO, 74911-8 #### [facility] ([id number]) [address] [place] [address], [place] [address]Fbpnpjw [Mass/Vol]7.0 g/dLNormal6.0-8.0ProHarris Health System Ben Taub HospitalComment on above:Performed By: #### SHEA COLLAZO, #### [facility] ([id number]) [address] [place] [address], [place] [address]Dvrwgb [Moles/Vol]136 mmol/GBppcet365-178MjtXchiwc [facility] HospitalComment on above:Performed By: #### SHEA COLLAZO, #### [facility] ([id number]) [address] [place] [address] 17321Gess nitrogen [Mass/Vol]9 mg/dLNormal5-ProHarris Health System Ben Taub HospitalComment on above:Performed By: #### SHEA COLLAZO, 78681-6 #### [facility] ([id number]) [address] [place] [address], [place] [address]YKIUZRKUPpr 76-66-9098Hvtjlxcfa [Mass/Vol]2.1 mg/dLNormal 1.8-2.6University [facility]als Ahuja Medical CenterComment on above:Performed By: #### SHEA COLLAZO, 30098-8 #### [facility] ([id number]) [address] [place] [address], [place] [address]YAKMY METABOLIC PANLon 50-04-1081Gdzzx gap [Moles/Vol]6 mmol/L Normal5-15ProHarris Health System Ben Taub HospitalComment on above:Performed By: #### VALE, BMP #### [facility] ([id number]) [address] [place] [address], [place] [address]Zurcbfw [Mass/Vol]9.0 mg/dLNormal8.5-10.5ProMedAtrium Healthmont HospitalComment on above:Performed By: #### VALE, BMP #### [facility] ([id number]) [address] [place] [address] 91714Qqsxqfzv [Moles/Vol]106 mmol/FLwzevv52-787KwpQmyxknHarris Health System Ben Taub HospitalComment on above:Performed By: #### VALE, BMP #### [facility] ([id number]) [address] [place] [address] 34428EC3 [Moles/Vol]25 mmol/RNayfnl57-69TfqGaurvcSelect Medical Specialty Hospital - [place]ron Comment on above:Performed By: #### VALE, BMP #### [facility] ([id number]) [address] [place] [address] 23354Dcaohjkgak [Mass/Vol]0.54 mg/dLNormal0.40-1.00[facility] Ahuja Medical CenterComment on above:Result Comment: METHOD TRACEABLE TO IDMS STANDARD Performed By: #### VALE, BMP #### [facility] ([id number]) [address] [place] [address] 19512tISF (CKD-EPI) NON-RACE DEPENDENT>90Normal>59ProHarris Health System Ben Taub HospitalComment on above:Result Comment: Reported eGFR is based on the CKD-EPI 2021 equation that does not use a race coefficient.Performed By: #### VALE, BMP #### [facility] ([id number]) [address] [place] [address] 54654Idruanm [Mass/Vol]145 mg/qUFaen08-84RocJhtovaUniversity Hospitals Ahuja Medical Center Comment on above:Performed By: #### VALE, BMP #### [facility] ([id number]) [address] [place] [address] 90897Pwcprkygy [Moles/Vol]3.5 mmol/LNormal3.5-5.0ProHarris Health System Ben Taub HospitalComment on above:Performed By: #### VALE, BMP #### [facility] ([id number]) [address] [place] [address] 90818Nmhcwz [Moles/Vol]137 mmol/XIivkie812-968ZbgUaotkq [facility] HospitalComment on above:Performed By: #### CBCA, BMP #### [facility] ([id number]) [address] [place] [address] 09077Quup nitrogen [Mass/Vol]9 mg/dLNormal5-23ProHarris Health System Ben Taub HospitalComment on above:Performed By: #### CBCShakira, BMP #### [facility] ([id number]) [address] [place] [address], [place] [address]ODP AND AUTO DIFFon 56-12-8388DMFFKQCA BASOPHIL0.1 X10E9/L Normal0.0-0.2ProMedica Indian Valley HospitalComment on above:Performed By: #### CBCShakira, BMP #### [facility] ([id number]) [address] [place] [address] 20242TGXBKKXZ NEUTROPHIL3.1 X10E9/LNormal1.5-6.6ProHarris Health System Ben Taub HospitalComment on above:Performed By: #### CBCA, BMP #### [facility] ([id number]) [address] [place] [address] 38592Rzgbbnwya/100 WBC (Bld)0.9 %NormalProHarris Health System Ben Taub Hospital Comment on above:Performed By: #### CBCA, BMP #### [facility] ([id number]) [address] [place] [address] 73983Aoabdxczlqd (Bld) [#/Vol]0.1 10*3/uLNormal0.0-0.4[facility]ja Medical CenterComment on above:Performed By: #### CBCA, BMP #### [facility] ([id number]) [address] [place] [address] 38569Szmakmlnvbl/100 WBC (Bld)2.0 %NormalUniversity Hospitals Ahuja Medical Center Comment on above:Performed By: #### VALE, BMP #### [facility] ([id number]) [address] [place] [address] 93910Xneorkncxsa distribution width (RBC) [Ratio]12.7 %Normal 11.5-15.0[facility]huja Medical CenterComment on above:Performed By: #### CBCShakira, BMP #### [facility] ([id number]) [address] [place] [address] 51663Nwkcbzphxg (Bld) [Volume fraction]39.8 %Abmlun61-30UwwTsoqlkHarris Health System Ben Taub HospitalComment on above:Performed By: #### CBCShakira, BMP #### [facility] ([id number]) [address] [place] [address] 59135Wghvvztazy (Bld) [Mass/Vol]13.6 g/rTZmtaei74.7-15.5PSelect Medical Specialty Hospital - AkronComment on above:Performed By: #### CBCShakira, BMP #### [facility] ([id number]) [address] [place] [address] 23001Caifhppeiil (Bld) [#/Vol]2.8 10*3/uLNormal1.0-3.5PSelect Medical Specialty Hospital - AkronComment on above:Performed By: #### CBCShakira, BMP #### [facility] ([id number]) [address] [place] [address] 27383Gcmcnbncaxh/100 WBC (Bld)44.5 %NormalUniversity Hospitals Ahuja Medical Center Comment on above:Performed By: #### CBCShakira, BMP #### [facility] ([id number]) [address] [place] [address] 89263KSE (RBC) [Entitic mass]30.2 wnVmzhhs11-74FdeTibbelHarris Health System Ben Taub HospitalComment on above:Performed By: #### CBCA, BMP #### [facility] ([id number]) [address] [place] [address] 01210AEXB (RBC) [Mass/Vol]34.2 g/tDLjkbmx43-36RtnCmkumrUniversity Hospitals Ahuja Medical CenterComment on above:Performed By: #### CBCA, BMP #### [facility] ([id number]) [address] [place] [address] 36463JYE (RBC) [Entitic vol]88 aWUtcthh21-269HtbLppyvmUniversity Hospitals Ahuja Medical CenterComment on above:Performed By: #### CBCA, BMP #### [facility] ([id number]) [address] [place] [address] 42123Vthghmixh (Bld) [#/Vol]0.3 10*3/uLNormal0-0.9[facility]ja Medical CenterComment on above:Performed By: #### CBCA, BMP #### [facility] ([id number]) [address] [place] [address] 30433Nnlkoysel/100 WBC (Bld)4.1 %[facility] Comment on above:Performed By: #### CBCA, BMP #### [facility] ([id number]) [address] [place] [address] 37746Uncswzrkpou/100 WBC (Bld)48.5 %[facility] Comment on above:Performed By: #### CBCA, BMP #### [facility] ([id number]) [address] [place] [address] 86806Unjqumyx mean volume (Bld) [Entitic vol]7.8 fLNormal7-12 [facility]ja Medical CenterComment on above:Performed By: #### CBCA, BMP #### [facility] ([id number]) [address] [place] [address] 75483Ylpxzgnnh (Bld) [#/Vol]289 10*3/sQZeymnb182-066OxnEgrkxr [facility] HospitalComment on above:Performed By: #### VALE, BMP #### [facility] ([id number]) [address] [place] [address] 89892CLL COUNT4.51 X10E12/LNormal3.80-5.20[facility] Comment on above:Performed By: #### VALE, BMP #### [facility] ([id number]) [address] [place] [address] 29566WQG (Bld) [#/Vol]6.4 10*3/uLNormal4.0-11.0ProHarris Health System Ben Taub HospitalComment on above:Performed By: #### VALE, BMP #### [facility] ([id number]) [address] [place] [address] 42742BB NECK SOFT TISSUE W CONTon 87-79-4963TI NECK SOFT TISSUE W CONTCT NECK SOFT [...] by Vladimir Hall MD on 06/25/2024 11:59 PMNormalProMediGoleta Valley Cottage HospitalHCG ( test) Ql (U)on 82-61-3523Gnpu HCG ( test) Ql (U) NegativeNormalNEGUniversity Hospitals Ahuja Medical CenterComment on above:Performed By: #### 2106-3 #### [facility] ([id number]) [address] [place] [address] 88284KKYPU STREP SCR NURSINGon 06-25-2024S. pyogenes Ag EIA Ql (Throat)PositiveAbnormalNEGUniversity Hospitals Ahuja Medical CenterComment on above:Performed By: #### 6556-5 #### [facility] ([id number]) [address] [place] [address] 65074CEXVY PCR THROATon 06-25-2024S. pyogenes DNA TRAY+probe Nom (Unsp spec)STREP PCR THROAT Negative (qualifier value) Streptococcus Group A NOT detected by nucleic acid amplification.NormalProHarris Health System Ben Taub HospitalComment on above: Performed By: #### 30002-9 #### [facility] ([id number]) [address], [address] [place], [place] [address] ANKLE LT MIN 3 VWSon 77-95-9547VS ANKLE LT MIN 3 VWSXR ANKLE LT [...] Tyrese Emmanuel MD on 04/26/2024 12:06 PMNormalProMedica Indian Valley HospitalBasophils Auto (Bld) [#/Vol]on 24-68-3710Pamluyvwe (Bld) [#/Vol] Automated basophil count0.0-0.1FProtestant Deaconess HospitalBasophils/100 WBC Auto (Bld)on 48-86-4627Dtoshcljk/100 WBC (Bld)Automated basophil %0.2-2.0 [facility] YoungstownEosinophils/100 WBC Auto (Bld)on 04-18-2024 Eosinophils/100 WBC (Bld)Automated eosinophil %0.9-7.0[facility] - YoungstownErythrocyte distribution width Auto (RBC) [Ratio]on 55-31-8731Dhjvssvqwew distribution width (RBC) [Ratio]Erythrocyte distribution width [Ratio] by Automated count11.0-15.0[facility] YoungstownHematocrit Auto (Bld) [Volume fraction]on 05-64-8625Wukmfprgbr (Bld) [Volume fraction]Hematocrit [Volume Fraction] of Blood by Automated count36.0-48.0[facility] - YoungstownHemoglobin [Mass/volume] in Bloodon 51-17-8196Tpkfvafzzf (Bld) [Mass/Vol] Hemoglobin [Mass/volume] in Blood12.0-16.0[facility] Laboratory - Chemistry and Chemistry - challengeon 95-86-8104Gcaaqppby Ql (U) NegativeNEGATIVESelect Medical Specialty Hospital - YoungstownGlucose (U) [Mass/Vol]Negative NEGATIVESelect Medical Specialty Hospital - YoungstownKetones Ql (U)NegativeNEGATIVESelect Medical Specialty Hospital - YoungstownpH (U)6.5 [pH]5.0-9.0[facility] Specific gravity (U) [Rel density]1.0101.005-1.025[facility] [place]stownUrobilinogen Qn (U)0.2 {Melissa'U}/dL0.2-1.0[facility] [place]Labor[facility] - Hematology and Cell countson 73-28-0029Phafxssn granulocytes/100 WBC (Bld)0.3 %0.0-0.5FProtestant Deaconess Hospital Laboratory - Specimen informationon 02-45-8144Mquzqvgoku (U)CLEARCLEARFProtestant Deaconess HospitalColor (U)LT. YELLOWYELLOWSelect Medical Specialty Hospital - [place]stownLaboratory - Urinalysison 43-38-3243Ivtdjhsch esterase Test strip Ql (U) NegativeNEGATIVESelect Medical Specialty Hospital - [place]stownMucus Ql (Urine sed)NONE SEEN NONE SEENSelect Medical Specialty Hospital - [place]stownNitrite Ql (U)NegativeNEGATIVE [facility] [place]Protein Ql (U)NegativeNEG/TRACESelect Medical Specialty Hospital - [place]stownLeukocytes [#/volume] corrected for nucleated erythrocytes in Blood by Automated counon 42-29-3257SBL corrected for nucl RBC Auto (Bld) [#/Vol]Leukocytes [#/volume] corrected for nucleated erythrocytes in Blood by Automated coun4.0-11.0[facility] [place]stownLymphocytes Auto (Bld) [#/Vol]on 03-63-1934Mlnszzctixf (Bld) [#/Vol]Lymphocytes [#/volume] in Blood by Automated count1.2-3.8[facility] [place]stownLymphocytes/100 WBC Auto (Bld)on 01-05-8566Dltznnmvgqj/100 WBC (Bld)Lymphocytes/100 leukocytes in Blood by Automated count20.5-60.0[facility] HospitalH Auto (RBC) [Entitic mass]on 55-89-7110SDD (RBC) [Entitic mass]MCH [Entitic mass] by Automated count26.7-34.0[facility] [place]stownMCHC Auto (RBC) [Mass/Vol]on 05-19-9633IEOM (RBC) [Mass/Vol]MCHC [Mass/volume] by Automated count29.9-35.2FProtestant Deaconess HospitalMCV Auto (RBC) [Entitic vol]on 12-81-1357MAB (RBC) [Entitic vol]MCV [Entitic volume] by Automated count 81.0-99.0[facility] [place]stownMonocytes Auto (Bld) [#/Vol]on 96-64-1706Resxqtoqi (Bld) [#/Vol]Automated blood monocyte count0.3-0.8[facility] [place]stownMonocytes/100 WBC Auto (Bld)on 04-12-5821Kcokyjlxu/100 WBC (Bld)Automated monocyte %1.7-12.0[facility] Neutrophils Auto (Bld) [#/Vol]on 35-46-6499Kqjwbrgknko (Bld) [#/Vol]Neutrophils [#/volume] in Blood by Automated count1.4-6.5FProtestant Deaconess Hospital Neutrophils/100 WBC Auto (Bld)on 90-49-3934Fdumsupbuvd/100 WBC (Bld)Automated neutrophil %43.0-75.0[facility] [place]No Panel Informationon 67-78-5337Lvupzjymjvq # (Auto)0.3 10 3/uL0.0-0.7FProtestant Deaconess HospitalImmature Granulocyte # (Auto)0.02 10 3/uL0.00-0.03[facility] [place]stownUrine BacteriaTRACE #/HPFAbnormalNONE [facility] HospitalUrine Occult BloodMODERATEAbnormalNEGATIVESelect Medical Specialty Hospital - YoungstownUrine Other CastsNONE SEEN #/LPFNONE [facility] HospitalUrine Other CrystalsNone Seen #/HPFNone [facility] CenterUrine RBCNONE SEEN #/HPF0-2FProtestant Deaconess HospitalUrine Squamous Epithelial CellsFEW #/LPFAbnormalNONE/RARESelect Medical Specialty Hospital - YoungstownUrine WBCNONE SEEN #/HPFNONE Peoples HospitalPlatelet mean volume Auto (Bld) [Entitic vol]on 62-94-9074Dpkjmudx mean volume (Bld) [Entitic vol]Platelet mean volume [Entitic volume] in Blood by Automated count Low9.5-13.5FProtestant Deaconess HospitalPlatelets Auto (Bld) [#/Vol]on 51-10-5405Fdlrwblkt (Bld) [#/Vol]Platelets [#/volume] in Blood by Automated owaqf611-485DlrkkydipSelect Medical Specialty Hospital - YoungstownRBC Auto (Bld) [#/Vol]on 04-18-2024 RBC (Bld) [#/Vol]Erythrocytes [#/volume] in Blood by Automated count4.20-5.40 [facility] [place]stownInfluenza virus B Ag [Presence] in Upper respiratory specimen by Rapid immunoassayon 96-62-4448UFPTU Ag IA.rapid Ql (Nph) Influenza virus B Ag [Presence] in Upper respiratory specimen by Rapid immunoassaySelect Medical Specialty Hospital - YoungstownLaboratory - Chemistry and Chemistry - challengeon 92-88-8275Jrjalfbsx Ql (U)NegativeSelect Medical Specialty Hospital - YoungstownGlucose (U) [Mass/Vol]NegativeSelect Medical Specialty Hospital - YoungstownKetones Ql (U)NegativeSelect Medical Specialty Hospital - YoungstownpH (U)5.0 [pH][facility] Hospitalpecific gravity (U) [Rel density]1.015[facility] YoungstownUrobilinogen (U) [Mass/Vol]0.2 mg/dLSelect Medical Specialty Hospital - [place] Laboratory - Specimen informationon 91-55-2698Vzjrnjuypp (U)cloudySelect Medical Specialty Hospital - YoungstownColor (U)darkyellowSelect Medical Specialty Hospital - [place] Laboratory - Urinalysison 15-94-9280Niejqzsap esterase Test strip Ql (U)Negative [facility] YoungstownNitrite Ql (U)NegativeSelect Medical Specialty Hospital - YoungstownProtein Ql (U)+[facility] [place]No Panel Informationon 05-59-3555Lbpmapgga Type A (Rapid)NegativeSelect Medical Specialty Hospital - YoungstownPOC SARS CoV-2 AntigenNegativeSelect Medical Specialty [facility] - [place] Urine Occult Blood5-10[facility] [place]No Panel Information Ordered By: Krishna Hernandez on 12-52-3609Viupr Strep (POC)[facility] YoungstownPAP ACOG PANEL 2: 21 to 29on 08-28-2022..NormalThe Community Memorial HospitalComment on above:Performed By: #### [id number] #### [facility] [address] [address] [address] Medina Rendon Gdln ACOG Cljirjj09-43ThlbmwQztAvita Health SystemComment on above:Performed By: #### [id number] #### [facility] [address] [address] [address] Medina MenchacaDIAGNOSIS:CommentThe Bellevue HospitalComment on above: Result Comment: NEGATIVE FOR INTRAEPITHELIAL LESION OR MALIGNANCY.Performed By: #### [id number] #### [facility] [address] [address] [address] Medina MenchacaMethodology:CommentRegency Hospital Company on above: Result Comment: This liquid based ThinPrep(R) pap test was screened with the use of an image guided system.Performed By: #### [id number] #### [facility] [address] [place] [address] Dr. Medina MenchacaNote:CommentRegency Hospital Company on above:Result Comment: The Pap smear is a screening test designed to aid in the detection of premalignant and malignant conditions of the uterine cervix. It is not a diagnostic procedure and should not be used as the sole means of detecting cervical cancer. Both false-positive and false-negative reports do occur. .Performed By: #### [id number] #### [place] [address] Dr[address] Medina MenchacaPerformed by:CommentRegency Hospital Company on above: Result Comment: Nadya Martel, Car Sander (ASCP)Performed By: #### [id number] #### [facility] [address] [place] [address] Dr. Medina MenchacaReflex Criteria:CommentRegency Hospital Company on above:Result Comment: The HPV DNA reflex criteria were not met with this specimen result therefore, no HPV testing was performed. .Performed By: #### [id number] #### [place] [address] Dr[address] Medina MenchacaSpecimen adequacy:CommentRegency Hospital Company on above:Result Comment: Satisfactory for evaluation. No endocervical component is identified.Performed By: #### [id number] #### [facility] [address] [place] [address] Dr. Medina MenchacaCULTURE URINEon 44-74-0591RINGBFU URINEIsolate 1 Escherichia coli >100,000 cfu/mL of [...] <=16 S F Trimethoprim/Sulfamethoxazole <=20 S FNormalThe Community Memorial HospitalComment on above:Performed By: #### URCX #### [facility] [address] [place] [address] Dr. Medina Jimenez AUTO DIFFon 66-96-2612DAMP #0.0 103/ulNormal0.0-0.1The [facility] Memorial HospitalComment on above:Performed By: #### CBC #### [facility] [address] [place] [address] Dr. Medina MenchacaBasophils/100 WBC (Bld)0.2 %Normal0.2-2.0[facility] Comment on above:Performed By: #### CBC #### [facility] [address] [place] [address] Dr. Medina Bradley #0.1 103/ulNormal0.0-0.7The [facility] Memorial HospitalComment on above: Performed By: #### CBC #### [facility] [address] [place] [address] Dr. Medina Turnerosinophils/100 WBC (Bld)1.2 %Normal0.9-7.0[facility] Comment on above:Performed By: #### CBC #### [facility] [address] [place] [address] Dr. Medina Turnerrythrocyte distribution width (RBC) [Ratio]12.5 %Wwgwrq56.0-15.0 [facility] HospitalComment on above:Performed By: #### CBC #### [facility] [address] [place] [address] Dr. Medina MenchacaHematocrit (Bld) [Volume fraction]41.5 %Yxulnf40.0-48.0The [facility] Memorial HospitalComment on above:Performed By: #### CBC #### [facility] [address] [place] [address] Dr. Medina MenchacaHemoglobin (Bld) [Mass/Vol]13.8 g/qGIgwecs56.0-16.0[facility] on above:Performed By: #### CBC #### [facility] [address] [place] [address] Dr. Medina Perdomo #0.03 10e3/ulNormal0.00-0.03The [facility] Memorial HospitalComment on above:Performed By: #### CBC #### [facility] [address] [place] [address] Dr. Medina Perdomo %0.3 %Normal0.0-0.5The [facility] Memorial HospitalComment on above: Performed By: #### CBC #### [facility] [address] [place] [address] Dr. Medina Alex #2.2 103/ulNormal1.2-3.8The [facility] Memorial HospitalComment on above:Performed By: #### CBC #### [facility] [address] [place] [address] Dr. Medina Lewishocytes/100 WBC (Bld)24.4 %Wmnfov45.5-60.0The [facility] Memorial HospitalComment on above:Performed By: #### CBC #### [facility] [address] [place] [address] Dr. Medina CarterUAL DIFF REQNONormalThe Community Memorial HospitalComment on above: Performed By: #### CBC #### [facility] [address] [place] [address] Dr. Medina Vasquze (RBC) [Entitic mass]30.5 qwHibjqk44.7-34.0The [facility] Memorial HospitalComment on above:Performed By: #### CBC #### [facility] [address] [place] [address] Dr. Medina Vasquez (RBC) [Mass/Vol]33.3 g/uEHhalao43.9-35.2The [facility] Memorial HospitalComment on above:Performed By: #### CBC #### [facility] [address] [place] [address] Dr. Medina VasquezV (RBC) [Entitic vol]91.6 zYVgeric41.0-99.0The [facility] Hospitalment on above:Performed By: #### CBC #### [facility] [address] [place] [address] Dr. Medina Whitehead #0.4 103/ulNormal0.3-0.8The [facility] Memorial HospitalComment on above:Performed By: #### CBC #### [facility] [address] [place] [address] Dr. Medina Heartocytes/100 WBC (Bld)4.4 %Normal1.7-12.0[facility] Comment on above:Performed By: #### CBC #### [facility] [address] [place] [address] Dr. Medina DamonUT #6.2 103/ulNormal1.4-6.5The [facility] Memorial HospitalComment on above:Performed By: #### CBC #### [facility] [address] [place] [address] Dr. Medina Damonutrophils/100 WBC (Bld)69.5 %Zguyrg34.0-75.0The [facility] HospitalComment on above:Performed By: #### CBC #### [facility] [address] [place] [address] Dr. Medina Maherlet mean volume (Bld) [Entitic vol]10.6 fLNormal9.5-13.5The [facility] Memorial HospitalComment on above:Performed By: #### CBC #### [facility] [address] [place] [address] Dr. Medina MenchacaPLT197 103/edIbumgr497-073Nak Community Memorial HospitalComment on above: Performed By: #### CBC #### [facility] [address] [place] [address] Dr. Medina MenchacaRBC4.53 106/ulNormal4.20-5.40The [facility] Community Hospitalment on above:Performed By: #### CBC #### [facility] [address] [address] [address] Medina MenchacaWBC8.9 103/ulNormal4.0-11.0The [facility] Memorial HospitalComment on above: Performed By: #### CBC #### [facility] [address] [place] [address] Dr. Medina MenchacaCT ABD/PELV W CONon 37-62-7328ML ABD/PELV W CONEXAMINATION: CT ABD/PELV W CON [...] Electronically authenticated by: ROGELIO FUCHS Date: 2022-03-03 20:58NormGlenbeigh Hospitale [facility] URINE PROFILEon 79-52-3190Ainciugkq Ql (U)NegativeNormal NEGATIVEThe Community Memorial HospitalComment on above:Performed By: #### UMICRO, PREGU, ERUR #### [facility] [address] [place] [address] Dr. Medina Davilaarity (U)CLEARNormalCLEARKettering Health Dayton HospitalComment on above: Performed By: #### UMICRO, PREGU, ERUR #### [facility] [address] [address] [address] Medina Mendes (U)LT. YELLOWNormalYELLOWRiverside Methodist HospitalComment on above:Performed By: #### UMICRO, PREGU, ERUR #### [facility] [address] [address] [address] Medina Middleton micrscopic examination will be performed if indicated. NormalRiverside Methodist HospitalComment on above:Performed By: #### UMICRO, PREGU, ERUR #### [facility] [address] [address] [address] Mdeina MenchacaGlucose Ql (U)NegativeNormalNEGATIVEKettering Health Dayton HospitalComment on above:Performed By: #### UMICRO, PREGU, ERUR #### [facility] [address] [address] [address] Medina MenchacaHemoglobin Ql (U)TRACE-INTACTAbnormalNEGATIVERiverside Methodist HospitalComment on above:Performed By: #### UMICRO, PREGU, ERUR #### [facility] [address] [address] [address] Medina Lo Ql (U)NegativeNormalNEGATIVERiverside Methodist HospitalComment on above:Performed By: #### UMICRO, PREGU, ERUR #### [facility] [address] [address] [address] Medina MenchacaLEUKOCYTESTRACEAbnormalNEGATIVERiverside Methodist HospitalComment on above:Performed By: #### UMICRO, PREGU, ERUR #### [facility] [address] [place] [address] Dr. Medina MenchacaNitrite Ql (U)NegativeNormalNEGATIVERiverside Methodist HospitalComment on above:Performed By: #### UMICRO, PREGU, ERUR #### [facility] [address] [address] [address] Medina MenchacapH (U)6.0 [pH]Normal5-9The [facility] Memorial HospitalComment on above: Performed By: #### FOUZIA LOZANOU, ERUR #### [facility] [address] [address] [address] Medina MenchacaSPEC GRAVITY1.158Icazsz3.005-<=1.025The [facility] Memorial HospitalComment on above:Performed By: #### UMFOUZIA FARRU, ERUR #### [facility] [address] [place] [address] Dr. Meidna MenchacaUA PROTEINNegativeNormalNEGATIVE/ TRACEThe [facility] Comment on above:Performed By: #### FOUZIA LOZANOU, ERUR #### [facility] [address] [place] [address] Dr. Medina MenchacaUR MICRO INDINDICATEDNormalThe Community Memorial HospitalComment on above: Performed By: #### FOUZIA LOZANOU, ERUR #### [facility] [address] [place] [address] Dr. Medina MenchacaUrobilinogen Qn (U)1.0 {Melissa'U}/dLNormal0.2 - 1.0The [facility] Memorial HospitalComment on above:Performed By: #### FOUZIA LOZANOU, ERUR #### [facility] [address] [place] [address] Dr. Medina MenchacaLIPASEon 58-67-4294Iftqce [Catalytic activity/Vol]116.0 U/LNormal 73.0-393.0The [facility] Memorial HospitalComment on above:Performed By: #### LIPA, CMP #### [facility] [address] [place] [address] Dr. Medina MenchacaPREGNANCY URon 73-22-1970MLSAHAPCM, QUALNegativeNormalNEGATIVEThe Community Memorial HospitalComment on above:Performed By: #### UMCHIKA PREGU, ERUR #### [facility] [address] [place] [address] Dr. Medina MenchacaPROF 14(COMP METB)on 26-33-4512Ggqkbju [Mass/Vol]3.7 g/dLNormal 3.4-5.0The [facility] HospitalComment on above:Performed By: #### LIPA, CMP #### [facility] [address] [address] [address] Medina MenchacaAlbumin/Globulin [Mass ratio]1.1 {ratio}NormalThe Community Memorial HospitalComment on above:Performed By: #### LIPA, CMP #### [facility] [address] [address] [address] Medina AbdallaP [Catalytic activity/Vol]117 U/LCritically lsug56-646Sbt [facility] HospitalComment on above:Performed By: #### LIPA, CMP #### [facility] [address] [place] [address] Dr. Medina AbdallaT [Catalytic activity/Vol]68 U/LCritically wsxj24-01Szs [facility] HospitalComment on above:Performed By: #### LIPA, CMP #### [facility] [address] [place] [address] Dr. Medina Woodall gap [Moles/Vol]9.0 mmol/LNormalThe [facility] Memorial HospitalComment on above:Performed By: #### LIPA, CMP #### [facility] [address] [place] [address] Dr. Medina MenchacaAST [Catalytic activity/Vol]31 U/WWelcii80-25Ltk [facility] HospitalComment on above:Performed By: #### LIPA, CMP #### [facility] [address] [place] [address] Dr. Medina MenchacaBilirubin [Mass/Vol]0.6 mg/dLNormal0.2-1.0The [facility] Comment on above:Performed By: #### LIPA, CMP #### [facility] [address] [place] [address] Dr. Medina MenchacaCalcium [Mass/Vol]8.7 mg/dLNormal8.5-10.1The [facility] Comment on above:Performed By: #### LIPA, CMP #### [facility] [address] [address] [address] Medina MenchacaChloride [Moles/Vol]103 mmol/PZplyig94-011Dqc [facility] Comment on above:Performed By: #### LIPA, CMP #### [facility] [address] [address] [address] Medina MenchacaCO2 [Moles/Vol]27.6 mmol/JVrekfz18.0-32.0The [facility] Comment on above:Performed By: #### LIPA, CMP #### [facility] [address] [address] [address] Medina MenchacaCreatinine [Mass/Vol]0.72 mg/dLNormal0.55-1.02The [facility] HospitalComment on above:Performed By: #### LIPA, CMP #### [facility] [address] [place] [address] Dr. Medina TurnerGFR-AF MAURITANIAN>60Normal>=60The [facility] Memorial HospitalComment on above:Performed By: #### LIPA, CMP #### [facility] [address] [place] [address] Dr. Medina TurnerGFR-NON AF MAURITANIAN>60Normal>=60The [facility] HospitalComment on above:Performed By: #### LIPA, CMP #### [facility] [address] [place] [address] Dr. Medina MenchacaGlobulin (S) [Mass/Vol]3.4 g/dLNormalThe [facility] Memorial HospitalComment on above:Performed By: #### LIPA, CMP #### [facility] [address] [place] [address] Dr. Medina MenchacaGlucose [Mass/Vol]87 mg/hHZoqatu66-821Str [facility] Comment on above:Performed By: #### LIPA, CMP #### [facility] [address] [place] [address] Dr. Medina MenchacaPotassium [Moles/Vol]3.6 mmol/LNormal3.5-5.1The [facility] Comment on above:Performed By: #### LIPA, CMP #### [facility] [address] [address] [address] Medina MenchacaProtein [Mass/Vol]7.1 g/dLNormal6.4-8.2The [facility] Comment on above:Performed By: #### LIPA, CMP #### [facility] [address] [address] [address] Medina MenchacaSodium [Moles/Vol]136 mmol/UBaoere176-858Amv [facility] Comment on above:Performed By: #### LIPA, CMP #### [facility] [address] [address] [address] Medina MenchacaUrea nitrogen [Mass/Vol]8.0 mg/dLNormal7.0-18.0The [facility] HospitalComment on above:Performed By: #### LIPA, CMP #### [facility] [address] [address] [address] Medina Patton nitrogen/Creatinine [Mass ratio]11.1 mg/mgNoAvita Health SystemComment on above:Performed By: #### LIPA, CMP #### [facility] [address] [address] [address] Medina Rodriguez MICROSCOPIC ONLYon 01-88-4701VNOLTMRNVIRRDKvppbhntBTBG SEEN The [facility] Memorial HospitalComment on above:Performed By: #### BLAKE PREGU, ERUR #### [facility] [address] [address] [address] Medina Levin identified Cx Nom (U)INDICATEDNoAvita Health SystemComment on above:Performed By: #### DEBBYICMARGO PREGU, ERUR #### [facility] [address] [address] [address] Medina Starr SEENNormalNONE SEENUniversity Hospitals Parma Medical Center on above:Performed By: #### UMICRO, PREGU, ERUR #### [facility] [address] [address] [address] Medina Jaramillo LM Nom (Urine sed)NONE SEENNormalNONE SEENThe Cameron HospitalComment on above:Performed By: #### UMICRO, PREGU, ERUR #### [facility] [address] [address] [address] Haney ChangEpithelial cells LM Ql (Urine sed)RARENormalNONE SEEN /RARERiverside Methodist HospitalComascension standish hospital on above:Performed By: #### UMICRO, PREGU, ERUR #### [facility] [address] [address] [address] Medina MenchacaMUCOUSNONE SEENNormalNONE SEENRiverside Methodist HospitalComascension standish hospital on above:Performed By: #### UMICRO, PREGU, ERUR #### [facility] [address] [place] [address] Dr. Medina MenchacaFrjpwMID6-6Kiobvi5-5XbnUniversity Hospitals Parma Medical Center on above:Performed By: #### UMICRO, PREGU, ERUR #### [facility] [address] [place] [address] Dr. Medina MenchacaWBC2-5AbnormalNONE SEENRiverside Methodist HospitalComment on above: Performed By: #### UMICRO, PREGU, ERUR #### [facility] [address] [place] [address] Dr. Medina Josephvimanasa-19 PCR ([facility])on 90-58-1812TTPH-CoV-2 (COVID-19) RNA TRAY+probe Ql (Unsp spec)Not detectedNormalNOT DETECTEDRiverside Methodist Hospital Comment on above:Result Comment: This test is not yet approved or cleared by the [place] FDA. When there are no FDA-approved or cleared tests available, and other criteria are met, FDA can make tests available under an emergency access mechanism called an Emergency Use Authorization (EUA). The EUA for this test is supported by the Public Health Nutritionist of Health and Human Service's (HHS's) declaration [...] consistent with SARS-CoV-2.Performed By: #### CVDTBH #### [facility] [address] [address] [address] eMdina Menchaca Vital Signs Date TimeVital SignValuePerforming AyurxbrixWlyhdgeh21-73-1081 10:33-0500Body rdmywu156.77 kgCorey Aysha DO Work Phone: [phone] [place], [place] [address]Iysukpueql10-97-0996 10:33-0500Diastolic blood gfomyijz88 mm[Hg]Jeremy Aysha DO Work Phone: [phone] [place], [place] [address]Ckczozljcc27-34-2273 10:33-0500Systolic blood mm[Hg]Jeremy Aysha DO Work Phone: [phone] [place], [place] 5573509-02-2025 11:13-0400Body xhiqov551.93 kgCorey Aysha DO Work Phone: [phone] [place], [place] 5573507-25-2025 14:31-0400Body kboqgh415.56 cmBenjamin Ball DO Work Phone: [phone] [place], [place] 5862707-25-2025 14:31-0400 Body mass index (BMI) [Ratio]39.5 kg/h2Jahdthls Ball DO Work Phone: [phone] [place], [place] 5862707-25-2025 14:31-0400 Body jdyvci832.43 kgBenjamin Ball DO Work Phone: [phone] [place], [place] 5862707-25-2025 14:31-0400 Diastolic blood uxldbgyx85 mm[Hg]Krishna Ball DO Work Phone: [phone])[facility] [place], [place] 5862707-25-2025 14:31-0400 Heart rate88 /minBenjamin Ball DO Work Phone: [phone] [place], [place] 5862707-25-2025 14:31-0400 Respiratory rate12 /minBenjamin Ball DO Work Phone: [facility]07-25-2025 14:31-0400 Systolic blood mm[Hg]Krishna Ball DO Work Phone: [facility]03-18-2025 13:58-0400 Body .21 kgCorey Aysha DO Work Phone: [facility] HospitalMpguroggyl17-22-5880 13:58-0400Diastolic blood hozcfiuc62 mm[Hg]Jeremy Aysha DO Work Phone: [facility] HospitalPocamuslyh95-79-8155 13:58-0400Systolic blood xmucpyki249 mm[Hg]Jeremy Aysha DO Work Phone: [facility] HospitalEsfseeyeqx04-92-2340 14:39-0500Body fqkbdu975.56 cmSelect [facility] [place]02-28-2025 14:39-0500Body mass index (BMI) [Ratio]38.6 kg/t1UccohxdmlSelect Medical Specialty Hospital [facility] [place]02-28-2025 14:39-0500Body xrqyak924.17 kgSelect Medical Specialty [facility] [place]02-28-2025 14:39-0500Diastolic blood aadnzxvq716 mm[Hg][facility]02-28-2025 14:39-0500 Heart rate87 /[facility]02-28-2025 14:39-0500 Respiratory rate12 /[facility]02-28-2025 14:39-0500 SaO2% (BldA) [Mass fraction]98 %[facility]02-28-2025 14:39-0500Systolic blood rttomgvp257 mm[Hg][facility] 07-16-2022 14:00-0500Body xdkorv745.64 cmBenjamin Ball Other [employer] Other 03-08-2023 14:00-0500Body mass index (BMI) [Ratio] 36.54 kg/s4Vmmrfqxv Ball Other [employer] Other 03-08-2023 14:00-0500Body aqonhm318.7 kgBenverena Hernandez Other [employer] Other 03-08-2023 14:00-0500Diastolic blood eofcyvil40 mm[Hg] Krishna Hernandez Other [employer] Other 03-08-2023 14:00-0500Respiratory rate12 /minBenjamin Ball Other [employer] Other 03-08-2023 14:00-0500Systolic blood oypjuthw373 mm[Hg] Krishna Hernandez Other [employer] Other Encounters Encounter DateEncounter TypeCare ProviderFacilityStart: 03-13-2025 End: 02-96-0902Qfuakx flowsheetCorey Aysha DO Work Phone: [facility] OBGYNStart: 03-13-2025 End: 49-32-6749Zcpdfw flowsheetCorey Aysha DO Work Phone: [facility] OBGYNStart: 03-13-2025 End: 98-14-6080vpsrskfzdxGTLRI FAZIONot AvailableStart: 03-13-2025 End: 80-50-3189Hicfyuo encounter procedureCorey Aysha DO Work Phone: NOHM HealthcareStart: 03-13-2025 End: 74-57-7851Rbgpbmrf preventive med est patient 18-39 yrsCorey Aysha DO Work Phone: noms Lynsey OBGYNComment on above:Well woman exam with routine gynecological examStart: 02-21-2025 End: 26-79-0782Nooqgfuoh Result EncounterCorey Aysha DO Work Phone: noms External Department UnsolicitedStart: 02-21-2025 End: 40-55-8984Nyostfqel Result EncounterCorey Aysha DO Work Phone: NO[facility] External Department UnsolicitedStart: 02-01-2025 End: 13-98-5046yncubotgfzEbvnk MMya LueFacility:EU BellevueStart: 02-01-2025 End: 23-26-7085Gcfkxbt encounter procedureJulieth Lassiter [facility] start: 01-23-2025 End: 79-76-7483begfnfahxdWPZNW FAZIONot AvailableStart: 01-10-2025 End: 16-00-3059Fvxabf flowsheetCorey Aysha DO Work Phone: [facility] OBGYNStart: 01-10-2025 End: 82-26-2226Dhwbbz flowsheetCorey Aysha DO Work Phone: [facility] OBGYNStart: 01-10-2025 End: 94-34-7087Zbptpn outpatient visit 15 minutesCorey Aysha DO Work Phone: noms Lynsey OBGYNComment on above:Abnormal uterine bleeding (AUB); Abdominal crampingStart: 01-10-2025 End: 72-30-9527qfjtnxkaomDCZGI FAZIONot AvailableStart: 98-99-7334kgtarbeerx Julieth LueFacility:EU BellevueStart: 01-04-2025 End: 21-92-3083efjkemooueOkheph TannaFacility:FTMCStart: 01-04-2025 End: 33-92-9654Ctkyadf encounter procedureMichaelle Morales [facility] start: 12-28-2024 End: 67-29-0166Bcsgjrdkx department patient visitBENVERENA E BALLProMedica Sigurd HospitalStart: 12-27-2024 End: 98-82-1918zpsrjkffqtIyqqruit Ball DO Work Phone: [facility] Work Phone: Start: 12-27-2024 End: 63-92-1920Nqpsllh encounter procedureBenjashonda Ball DO-[facility] Work Phone: Start: 61-86-9672Sib-patient / Non-visitBenjamin Ball DO-[facility] Work Phone: Start: 12-07-2024 End: 10-24-4682qpnskvzrygEcnblvln BallFacility:[facility] Start: 86-15-4471Irk-patient / Non-visitBenjamin Ball DO-[facility] Work Phone: Start: 12-02-2024 End: 64-58-3988ujhfvwaikzHflmmkte Ball DO Work Phone: [facility] Work Phone: Start: 12-02-2024 End: 86-82-5567Hyldfxp encounter procedureBenjashonda Hernandez DO-[facility] Work Phone: Start: 08-12-2024 End: 13-13-5388Ffyvchhvo Result EncounterCorey Aysha DO Work Phone: noms External Department UnsolicitedStart: 08-12-2024 End: 72-43-3728Afdvbgcoq Result EncounterCorey Ayhsa DO Work Phone: noms External Department UnsolicitedStart: 08-08-2024 End: 92-40-5659tobavlbjlzSrjcffht [facility] Work Phone: Start: 08-08-2024 End: 33-46-9928Dzwlfndv ReferredBenjamin Ball DO Work Phone: [facility] Spec Cameron HospStart: 13-83-3812Pcs-patient / Non-visitBenjamin Ball DO Work Phone: [facility] GroupAst[facility] Work Phone: Start: 07-26-2024 End: 47-41-7088tluqcvzvghPMHSG FAZIONot AvailableStart: 07-26-2024 End: 12-54-8322Xbrnrc outpatient visit 15 minutesCorey Aysha DO Work Phone: [facility] OBComment on above:Encounter for IUD removal; Encounter for IUD insertion; Pelvic cramping; Presence of intrauterine contraceptive device (IUD)Start: 07-26-2024 End: 68-72-8385aoreswnbmeNYARB FAZIONot AvailableStart: 07-08-2024 End: 23-47-4774niyvznpbjyQbybivuhlCorey Hospital Work Phone: Start: 07-08-2024 End: 52-66-7741Tsmjzhz encounter procedureVidant Pungo Hospital Physician [facility] Work Phone: Start: 06-30-2024 End: 35-75-6318Cntqvnzps department patient visitBENJAMIN E BALLProMedica Sigurd HospitalStart: 06-25-2024 End: 53-26-7796tazobsuqojUTJJYNLZ E BALLProMedica Sigurd HospitalStart: 06-23-2024 End: 10-53-2061isqvexbbaoHuxwkfikdCorey Hospital Work Phone: Start: 06-23-2024 End: 80-18-4421Huhenqh encounter procedureVidant Pungo Hospital Physician GroupSt[facility] Work Phone: Start: 66-33-6064Dat-patient / Non-visitVidant Pungo Hospital Physician GroupSt. [facility] Work Phone: Start: 04-26-2024 End: 66-19-6850Xcynchytr department patient visitBENJAMIN E BALLProMedica Sigurd HospitalStart: 35-87-6009Qhe-patient / Non-visitVidant Pungo Hospital Physician GroupAst[facility] Work Phone: Start: 04-14-2024 End: 37-95-0188Xklljdx encounter procedureVidant Pungo Hospital Physician Group-[facility] Work Phone: Start: 08-31-2023 End: 65-23-1526crtqcblqxuKG Susan Ramirez Work Phone: [facility] Work Phone: Start: 08-31-2023 End: 76-02-2897Lxdvqhwg ReferredMD Susan Ramirez Work Phone: [facility] Spec Cameron HospStart: 01-29-2023 End: 98-51-3294avmmpsltinEnnpszqz Ball Other [employer] Other Start: 94-17-4765Bdnifg outpatient visit 15 minutes [facility] Medical ClinicStart: 01-13-2023 End: 62-56-4206izylzhakvmSgglaa Braun Other [employer] Other Start: 01-46-5658Xnzjpixuh encounterMarcia Checo Hernandez Medical ClinicStart: 12-30-2022 End: 86-14-1099fvhlrthtieYzfqvrhm Ball Other [employer] Other Start: 96-53-9070Jmtfuuakk encounterBenjamin Dion Hernandez Medical ClinicStart: 08-20-2022 End: 53-86-5208liyaimigsaRU DARIO HEAD .Facility:P5Wlzvg: 08-19-2022 End: 89-64-7277kstkvwramxOrygpaqk Ball Other [employer] Other Start: 44-81-9276Cjpgqyido encounterBenjashonda Hernandez Medical ClinicStart: 07-28-2022([facility]) [facility] Scheduled Krishna Hernandez Medical ClinicStart: 07-28-2022 End: 03-26-1999ppojgsslxvAqeriosz Ball Other [facility] [employer] Other Start: 07-16-2022 End: 17-10-6535krgpfuciksIjsppltp Ball Other [facility] [employer] Other Start: 19-97-2936Zkrdub outpatient visit 15 minutes [facility] Medical ClinicStart: 03-03-2022 End: 78-94-9500snimbcqlrkTO KRISHNA HERNANDEZFacility:H3Pvahj: 09-25-2021 End: 72-99-1747lemlxdolrcXV SUSAN Hudson MARKUSFacility:U4Nwgfe: 09-04-2021 Gynecological examination abnormalKrishna Hernandez Other [facility] [employer] Other Start: 04-09-2017 End: 12-21-7328FyndzutzfvTSEHUYJ PHYSICIANFacility:[facility] Procedures DateProcedureProcedure DetailPerforming ClinicianStart: 93-91-0869EI PELVIS W/ TRANSVAGINALCorey Aysha DO Work Phone: Start: 92-34-7951WDS CBC WITH AUTO DIFFCorey Aysha DO Work Phone: Start: 06-31-0352AGA REMOVALCorey Aysha DO Work Phone: Start: 05-21-3568Ftpbk Strep (POC) screening Krishna Hernandez Other Antenatal screeningKrishna Hernandez Other Contraception care educationKrishna Hernandez Other Diabetes mellitus screeningBevahe Hernandez Other Insertion of intrauterine contraceptive deviceKrishna Hernandez Other End: 93-87-6575Enjhjebop visitKrishna Hernandez Other Plan of Treatment DateCare ActivityDetailAuthorStart: 03-14-2026 End: 32-67-6821Wczuwhp encounter lrsugkwsk37/04/2026 2:00 PM EST Procedure Visit [facility] Lynsey RODRIGESGYWayne [address] [place] [address] Jeremy Olmstead, DO [address] [place] [address] NOM[facility] Lyn[facility] OBGYNStart: 02-20-2025 End: 18-79-5446Wgjkfrs encounter ikpwxtger15/13/2025 2:40 PM EDT Procedure Visit [facility] CABELLO [address] [place] [address] Jeremy Olmstead, DO [address] [place] [address] NOMS Lynsey OBGYNStart: 01-23-2025 End: 44-03-1021Fduhbgcqzuxs / ancillary services bwjzqyqbds46/15/2025 1:00 PM EDT Ancillary Procedure [facility]sey RODRIGESGYN [address] [place] [phone] NOMS [place] OBGYNStart: 01-10-2025 End: 32-51-3290QS PelvisUS Pelvis w/ TV Imaging Routine Abnormal uterine bleeding (AUB) Abdominal cramping Expected: 01/10/2025, Expires: 07/10/2025[facility] Work Phone: comment on above:Expected: 01/10/2025, Expires: 07/10/2025Start: 01-10-2025 End: 08-33-5412Jthknwv encounter estyijdbp93/02/2025 10:50 AM EDT Office Visit NOMFrandy CABELLO [address] [place] [phone] Jeremy Olmstead, DO [address] [place] [address] ArrivedNOMS Lynsey OBGYNComment on above:ArrivedStart: 71-58-8926Hxukf [facility] Start: 49-15-7602Pxffytya identified in Urine by CultureUrine [facility] Hospitaltart: 39-45-2400Hllff [facility] Hospitaltart: 07-26-2024 End: 96-93-7329QC Abdomen Single viewXR abdomen 1 view Imaging Routine Pelvic cramping Presence of intrauterine contraceptive device (IUD) Expected: 07/26/2024, Expires: 07/26/2025[facility] Work Phone: comment on above:Expected: 07/26/2024, Expires: 07/26/2025omprehensive metabolic 2000 panel - Serum or PlasmaSelect Medical Specialty Hospital - YoungstownCytology Cervical or vaginal smear or scraping studyPap Smear Pathology and Cytology Routine Well woman exam with routine gynecological exam Ordered: 03/13/2025[facility] Work Phone: comment on above:Ordered: 03/13/2025Human papilloma virus DNA [Presence] in Unspecified specimen by Probe with amplificationHPV DNA probe, amplified Microbiology Routine Well woman exam with routine gynecological exam Ordered: 03/13/2025[facility] HealthcareComment on above:Ordered: 03/13/2025 Urine [facility] Payers DatePayer CategoryPayerPolicy [id number] Health Insurance [id number]-[id number] 2025Medicaid [id number] [id number] 2024Blue Cross Blue ShieldBCBS Member Subscriber Plan / Payer (Effective 2023- Present) Name: Adrienne Camarena Relation to Subscriber: Self Name: Adrienne Camarena PayerID: Not on file Type: Not on file Address: [address] [id number] [id number] [id number] 2.16840.1.419572.3.57[id number] 2.16840.1.893705.3.57[id number] 2.16840.1.704682.3.57[id number] 2.160.1.461837.3.57[id number] 2.16840.1.968411.3.57[id number] 2.160.1.535639.3.57[id number] 2.16840.1.355524.3.57[id number] 2.160.1.923542.3.57[id number] 2.16840.1.673090.3.57[id number] 2.16840.1.669468.3.57[id number] 2.16840.1.618176.3.57[id number] 2.16840.1.727480.3.57[id number] 2.16.840.1.593510.3.57[id number] 2.16.840.1.193524.3.57[id number] 2.16.840.1.668271.3.579.[id number] 2.16.840.1.095625.19 [id number] by10w7l2-5902-079v-m0ix-[id number] 2.16.840.1.0[id number] 2.16.0.1.512295.3.579.2.531 Social History DateTypeDetailFacilitySex Assigned At [facility]: 01-29-2023 End: 78-20-3161Dlwcdmc smoking status NHISSmoker (finding)[facility] Hospitaltart: 12-22-0989Deq Assigned At [facility] Inctart: 06-23-2024 End: 92-34-0530CqqAkklxb (finding)[facility] YoungstownTobacco smoking status NHISTobacco smoking consumption unknownNOMS HealthcareStart: 23-13-2556Pglkyb identityIdentifies as female gender (finding)[facility] Start: 62-56-7744Iojbok orientationHeterosexual (finding)[facility] HealthcareStart: 52-76-3561Rasvbwl smoking status NHISSmokes tobacco daily (finding)[facility] Hospitaltart: 62-31-5392Zqpdlss smoking statusHeavy tobacco smoker (finding)[facility] Hospitalexual OrientationExec[facility] of [facility] start: 78-70-5596YldUoourbXXERPrisma Health [facility] Clinical Notes 07-16-2022 to 03-13-2025 Note Date & LghkIiqbSgmqhjhs04-47-7991 History of Present illness Narrative* Charu Driscoll, HEADLINE WRITER - 03/13/2025 10:20 AM EST Reason for [...] nursing note reviewed. Exam conducted with a dental mold maker present. Vitals: There is no height or [...] of: Jeremy Olmstead DO documented in this encounterPutnam County Memorial HospitalJimchwjtaa98-80-2892 History of Present illness Narrative* Gladis Almanza [...] was placed during recent [facility] [id number] Lot# [id number] Expiration: 09/2026 ALLERGIES Allergies Allergen Reactions Doxycycline [...] nursing note reviewed. Exam conducted with a dental mold maker present. Vitals: There is no height or [...] of: Jeremy Olmstead DO documented in this encounterPutnam County Memorial HospitalDiefraqizc08-18-4159 Hospital Discharge instructions Patient Education 01/04/2025 10:40:43 [...] Follow these instructions at home: Medicines Take kvrx-krs-csjmwym and prescription medicines only as told by [...] or the blood stops without treatment. Take ehjb-xub-xdkkkpu and prescription medicines only as told by your health care provider. Drink enough fluid to keep your urine pale yellow. This information is not intended to replace advice given to you by your health care provider. Make sure you discuss any questions you have with your health care provider. Document Revised: 12/26/2020 Document Reviewed: 12/26/2020 [employer] Patient Education 2023 [employer]. Follow Up Care 12/22/2024 14:27:43 With:Michaelle Morales PA-C, URL Address: When: Unknown Comments:F/U pending cysto [facility] [employer] 08-27-2025 NotePatient Education Urology Hematuria, Adult Hematuria [...] these instructions at home: Medicines ??? Take nmhf-eod-ghekhze and prescription medicines only as told by [...] the blood stops without treatment. ??? Take btnh-ldh-ecxljss and prescription medicines only as told by your health care provider. ??? Drink enough fluid to keep your urine pale yellow. This information is not intended to replace advice given to you by your health care provider. Make sure you discuss any questions you have with your health care provider. Document Revised: 12/26/2020 Document Reviewed: 12/26/2020 [email or web address] Patient Education ? 2023 New VisionMyaBl[facility] 12-02-2024 Evaluation note* Diagnosis Onset Date Resolution Status Admit Date Acute bronchitis due to other specified organisms acuteJuly 2024 2:19pmFatiguenoneactiveJuly 2024 2:19pmCough noneactiveJuly 2024 2:19pm [facility] Work Phone: 1(258) 102-997703-18-2025 History of Present illness Narrative* Gladis Almanza [...] nursing note reviewed. Exam conducted with a dental mold maker present. Vitals: There is no height or [...] given: yes Instructions and paperwork completed: yes Boley protocol: Patient states understanding of procedure being [...] of: Jeremy Olmstead DO documented in this encounterPutnam County Memorial HospitalFrrhoctchn81-04-1873 Evaluation note* Diagnosis Onset Date Resolution Status Admit Date Hematuria acuteFebruary 2024 11:30amAcute sinusitisnoneactiveFebruary 2024 11:30amDysurianoneactiveFebruary 2024 11:30amElevated BP without diagnosis of hypertensionacutebruary 2024 2:31pmElevated transaminase levelacute July 08, 2024 2:31pmHematuriaacuteFebruary 2024 2:31pmObesityacute July 08, 2024 2:31pmSubmandibular lymphadenopathynoneactiveFebruary 2024 2:31pmOdynophagianoneactiveFebruary 2024 2:31pmStrep throatnoneactive July 08, 2024 2:31pm [facility] Work Phone: 1(853) 256-721912-05-2024 Evaluation note* Diagnosis Onset Date Resolution Status Admit Date Acute bronchitis due to other specified organisms acuteDecember 2023 9:39amHematuriaacuteDecember 2023 9:39amNausea & vomitingacutecember 2023 9:39amHematuriaacuteFebruary 2024 11:30am Acute sinusitisnoneactiveFebruary 2024 11:30amDysurianoneactiveFebruary 2024 11:30am [facility] Work Phone: 1(348) 453-957812-05-2024 Evaluation note* Diagnosis Onset Date Resolution Status Admit Date Acute bronchitis due to other specified organisms acutecember 2023 9:39amHematuriaacuteDecember 2023 9:39amNausea & vomitingacuteDecember 2023 9:39amHematuriaacuteFebruary 2024 11:30am Acute sinusitisnoneactiveFebruary 2024 11:30amDysurianoneactiveFebruary 2024 11:30amElevated transaminase levelacuteFebruary 2024 2:31pm HematuriaacuteFebruary 2024 2:31pmSubmandibular lymphadenopathynoneactive July 08, 2024 2:31pmOdynophagianoneactiveFebruary 2024 2:31pm Elevated liver enzymesnoneactiveFebruary 2024 2:31pmStrep throatnoneactive July 08, 2024 2:31pm [facility] Work Phone: 1(956) 228-575409-21-2023 Evaluation note* Encounter Date Diagnosis Assessment Notes [...] and cancers. May result in prolonged coughing [employer] Other 04-11-2023 Evaluation note* Encounter Date Diagnosis Assessment Notes Treatment Notes Treatment Clinical Notes Aug, Acute bronchitis due to other sp ecified organisms (ICD-10 - J20.8) [facility] Other 03-20-2023 Evaluation note* Encounter Date Diagnosis Assessment Notes Treatment Notes Treatment Clinical Notes Jul, Acute non-recurrent maxillary si nusitis (ICD-10 - J01.00) Instructed to use Robitussin or Mucinex for cough, saline or Flonase NS for congestion, Tylenol forpain and fever. [facility] Other 03-08-2023 Evaluation note* Encounter Date Diagnosis [...] - Z86.59)Initiate counseling for anxiety and depression [employer] Other Evaluation + Plan note Future Appointments Appointment Date:02/01/2025 01:30:00 PM Scheduled Provider:Julieth Lassiter MD Location:[facility] Appointment Type:URO Procedure 15 min [facility] evaluation noteNo InformationNortCoatesville Veterans Affairs Medical Center [employer] Other Evaluation noteNo assessment information available [facility] Work Phone: Evaluation note* Diagnosis Encounter for [...] HistoryCOVIDMedical HistoryBruisingMedical HistoryFrequent headachesMedical HistoryWheezingSurgical HistoryT&ASurgical HistoryCESAREAN [id number] HistoryCESAREAN VVASSZA0218Plvmnywzoegnopp HistorySee past surgical hx [facility] [employer] Other Hospital course Narrative No data available for this section [facility] Hospital Discharge instructions No data available for this section [facility] progress note No data available for this section [facility] reason for referral (narrative)No reason for referral information availableDayton Osteopathic Hospital Work Phone: Summary Purpose Family History No Family History Records FoundNo Family History Records FoundNo Family History Records FoundNo Family History Records Found No data available for this section No Family History Records Found No data available for this section No Family History Records FoundNo Family History Records Found Advance Directives Advance [...] section and content) DATE CREATED AUTHOR 11/03/2017 [facility] DATE CREATED AUTHOR AUTHOR'S ORGANIZ ATION 09/10/2022 [facility] DATE CREATED AUTHOR AUTHOR'S ORGANIZ ATION 12/10/2024 [facility] DATE CREATED AUTHOR AUTHOR'S ORGANIZ ATION 12/30/2024 [facility] DATE CREATED AUTHOR AUTHOR'S ORGANIZ ATION 01/19/2025 [facility] DATE CREATED AUTHOR AUTHOR'S ORGANIZ ATION 02/03/2025 [facility] DATE CREATED AUTHOR AUTHOR'S ORGANIZ ATION 03/14/2025 [facility] EPIC REASON FOR VISIT (unrecogniz ed section and content) ReasonCommentsIUD removal/insertionReasonCommentsVaginal BleedingAbdominal CrampingReasonCommentsGynecologic Exam Care Teams (unrecognized sec tion and content) Team Status: Active Member Role Status Dates Susan Ramirez MD Primary Care Provider Active Team Status: Inactive Member Role Status Dates Susan Ramirez MD Primary Care Provider Active Start: August 31, 2023 End: August 30oreyessica PinedazioAttending ProviderActiveStart: August 31, 2023 End: August 31, 2023 Team Status: Active Member Role Status Dates Krishna Hernandez DO Primary Care Provider Active Team Status: Inactive Member Role Status Dates Susan Ramirez MD Primary Care Provider Active Start: April 14, 2024 End: April 14katina Hernandez DOAttpaul ProviderActiveStart: April 14, 2024 End: April 14, 2024 Team Status: Active Member Role Status Dates Krishna Hernandez DO Primary Care Provide r, Attending Provider Active Start: April 18, 2024 Team Status: Active Member Role Status Dates Krishna Hernandez DO Primary Care Provider Active Start: April 28, 2024 Heidy Sinclair ProviderActiveStart: April 28, 2024 Team Status: Inactive Member Role Status Dates Krishna Hernandez DO Primary Care Provide r, Attending Provider Active Start: June 23, 2024 End: June 23, 2024 Team Status: Inactive Member Role Status Dates Krishna Hernandez DO Primary Care Provide r, Attending Provider Active Start: July 08, 2024 End: July 08, 2024Team MemberRelationshipSpecialtyStart DateEnd Date Krishna Hernandez MD [address] [place] [address] [facility]08/10/23 Team Status: Active Member Role Status Dates Krishna Hernandez DO Primary Care Provide r, Attending Provider Active Start: August 08, 2024 Team Status: Inactive Member Role Status Dates Krishna Hernandez DO Attending Provider Active Sta rt: August 08, 2024 End: August 08, 2024Team MemberRelationshipSpecialtyStart DateEnd Date Krishna Hernandez MD [address] [place] [address] [facility]08/10/23 Team Status: Inactive Member Role Status Dates Krishna Hrenandez DO Primary Care Provider Active Start: December 02, 2024 End: December 02katina Hernandez DOAttpaul ProviderActiveStart: December 02, 2024 End: December 02, 2024 Team Status: Active Member Role Status Dates Krishna Hernandez DO Primary Care Provider Active Start: December 07, 2024 Maddy Brown ProviderActiveStart: December 07, 2024 Team Status: Active Member Role Status Dates Krishna Hernandez DO Attending Provider Active Sta rt: December 21, 2024 Team Status: Inactive Member Role Status Dates Krishna Hernandez DO Primary Care Provider Active Start: December 27, 2024 End: December 27katina Hernandez DOAttending ProviderActiveStart: December 27, 2024 End: December 27, 2024Team MemberRelationshipSpecialtyStart DateEnd Date Krishna Hernandez DO [address] [place] [address] PCP - GeneralInternal Medicine08/10/23Team MemberRelationshipSpecialtyStart Date End Date Krishna Hernandez, [address] [place] [address] PCP - GeneralInternal Medicine08/10/23Team MemberRelationshipSpecialtyStart Date End Date Krishna Hernandez, [address] [place] [address] PCP - GeneralInternal Medicine08/10/23 Goals (unrecognized section [...] BE BASED ON THE PRIMARY CLINICAL RECORDS. [employer] provides no warranty or guarantee of the accuracy or completeness of information in this document.
--- NOTE | 2025-05-09 10:54 | PM.PRESUREVA ---
History of Present Illness History of Present Illness Chief complaint: uretheral and bladder lesion Narrative: Patient presents for presurgical testing. The patient reports a history of dysuria, hematuria, frequency, and urgency with urination. She states she has not recently had any UTIs. She had a cystoscopy with Dr. Lassiter on April 24, 2025. She states she is also struggling with nausea and a decreased appetite. She denies fever, flank pain, vomiting, constipation, diarrhea, or any other complaints. Review of Systems ROS Narrative REVIEW OF SYSTEMS: Negative except as stated in HPI, ten or more systems reviewed. Constitutional: No fever, chills, weakness ENT: No sore throat or epistaxis Cardiovascular: No edema, chest pain, palpitations, or activity intolerance Respiratory: No shortness of breath, cough, or wheezing Musculoskeletal: No joint pain or swelling Neurological: No numbness, tingling, weakness, or headache Psychiatric: No mood changes [facility] Medical History (Updated 05/09/25 @ 10:56 by Marbella Campbell NP) Lesion of bladder ?N32.9 - Bladder disorder, unspecified (ICD-10) Urethral lesion ?N36.9 - Urethral disorder, unspecified (ICD-10) Hematuria ?R31.9 - Hematuria, unspecified (ICD-10) Low iron ?E61.1 - Iron deficiency (ICD-10) PTSD (post-traumatic stress disorder) ?F43.10 - Post-traumatic stress disorder, unspecified (ICD-10) Panic attacks ?F41.0 - Panic disorder [episodic paroxysmal anxiety] (ICD-10) Depression ?F32.A - Depression, unspecified (ICD-10) Anxiety ?F41.9 - Anxiety disorder, unspecified (ICD-10) Nausea ?R11.0 - Nausea (ICD-10) Remove/insert IUD (08/12/24) ?Z30.433 - Encounter for removal and reinsertion of intrauterine contraceptive device (ICD-10) Elevated blood pressure reading without diagnosis of hypertension ?R03.0 - Elevated blood-pressure reading, without diagnosis of hypertension (ICD-10) Submandibular lymphadenopathy (~06/30/24) ?R59.0 - Localized enlarged lymph nodes (ICD-10) Strep throat (~06/30/24) ?J02.0 - Streptococcal pharyngitis (ICD-10) Odynophagia (~06/30/24) ?R13.10 - Dysphagia, unspecified (ICD-10) Retained intrauterine contraceptive device (IUD) ?T83.39XA - Other mechanical complication of intrauterine contraceptive device, initial encounter (ICD-10) Vulval hematoma ?N90.89 - Other specified noninflammatory disorders of vulva and perineum (ICD-10) Lipoma ?D17.9 - Benign lipomatous neoplasm, unspecified (ICD-10) Migraines ?G43.909 - Migraine, unspecified, not intractable, without status migrainosus (ICD-10) Cystitis ?N30.90 - Cystitis, unspecified without hematuria (ICD-10) Surgical History (Updated 08/08/24 @ 11:29 by Marbella Campbell NP) H/O vaginal surgery (09/18/23) ?Z98.890 - Other specified postprocedural states (ICD-10) H/O adenoidectomy ?Z90.89 - Acquired absence of other organs (ICD-10) History of tonsillectomy ?Z90.89 - Acquired absence of other organs (ICD-10) H/O section ?Z98.891 - History of uterine scar from previous surgery (ICD-10) Family History (Updated 09/02/23 @ 11:58 by Yeimy Fofana RN) Other Family history of cancer Family history of diabetes mellitus Social History (Updated 05/09/25 @ 10:33 by Marbella Campbell NP) Within the past year, how often did you have a drink containing alcohol: never Score interpretation: A score less than 3 is consistent with normal alcohol consumption. Smoking status: Current every day smoker What tobacco products do you use: cigarettes Cigarettes per day: 10 Years smoked: 16 Smoking pack-years: 8.00 Second hand tobacco smoke exposure: No Non-prescribed substance use: denies use Previous occupational history: [employer] Known occupational exposures/hazards: No Highest level of school completed/degree received: high school graduate Meds Home Medications and Allergies Home Medications ?Medication ?Instructions ?Recorded ?Confirmed ?Type bupropion HCl 150 mg 24 hr tablet, 150 mg PO DAILY 05/09/25 05/09/25 History extended release citalopram 20 mg tablet 20 mg PO QNOON 05/09/25 05/09/25 History levonorgestrel (Mirena) 1 device intrauterine ONCE 05/09/25 05/09/25 History Allergies Allergy/AdvReac Type Severity Reaction Status Date / Time doxycycline Allergy Vomiting Verified 05/09/25 10:29 Exam Narrative Exam Narrative: Constitutional: Awake, alert, comfortable, well-appearing, nontoxic, interactive, vital signs as charted Head: Normocephalic, atraumatic Neck: Supple, normal appearance, normal range of motion, no meningeal signs, no lymphadenopathy Respiratory: No respiratory distress, breath sounds clear Cardiovascular: Regular rate and rhythm, strong and regular heart tones Abdomen: Nontender, normal bowel sounds, soft, no CVA tenderness Musculoskeletal: Normal gait, no swelling or edema Skin: No rashes or induration, no lesions, only visible skin inspected Neuro: No neurological deficits, normal sensation Psychiatric: Oriented ?3, normal affect Assessment and Plan Assessment and Plan (1) Urethral lesion: (2) Lesion of bladder: Plan Cystoscopy, urethral and bladder biopsies with fulguration scheduled with Dr. Lassiter May 24, 2025.
[2025-05-09 10:58] LABS: Hematocrit 41.7 % (36.0-48.0); Hemoglobin 13.8 g/dL (12.0-16.0); Immature Granulocytes Abs Auto 0.02 10^3/uL (0.00-0.03); Immature Granulocytes Pct Auto 0.3 % (0.0-0.5); Lymphocytes Absolute Auto 2.0 10^3/uL (1.2-3.8); Mean Corpuscular HGB Conc 33.1 g/dL (29.9-35.2); Mean Corpuscular Hemoglobin 29.6 pg (26.7-34.0); Mean Corpuscular Volume 89.3 fL (81.0-99.0); Platelet Count 310 10^3/uL (150-450); Red Blood Count 4.67 10^6/uL (4.20-5.40); White Blood Count 6.4 10^3/uL (4.0-11.0)
[2025-05-09 11:08] LABS: Glucose Urine UA NEGATIVE (NEGATIVE)
[2025-05-09 11:11] LABS: Anion Gap 11.0; Blood Urea Nitrogen 9.0 mg/dL (7.0-18.0); Calcium 9.1 mg/dL (8.5-10.1); Carbon Dioxide 28.4 mmol/L (21.0-32.0); Chloride 104 mmol/L (98-107); Estimated GFR (African America >60 (>=60 mL/min/1.73m^2); Estimated GFR (Non-African Ame >60 (>=60 mL/min/1.73m^2); Glucose 91 mg/dL (74-106); INR 0.95; Partial Thromboplastin Time 26.8 sec (22.3-36.2); Potassium 4.4 mmol/L (3.5-5.1); Prothrombin Time 10.0 sec (9.0-11.6); Sodium 139 mmol/L (136-145)
== END 2025-05-09 10:07 | disposition home or self-care (01) ==
LOC: PST 10:09
PROVIDERS: PCP Internal Medicine; Visit Provider Urology
DX: Z01.812 Encounter for preprocedural laboratory examination (principal); Z01.818 Encounter for other preprocedural examination; N32.9 Bladder disorder, unspecified
CPT/HCPCS: 36415; 80048; 81003; 85025; 85610; 85730; G0463